=== PATIENT | male | born 1960 | race Caucasian/White ===

== ENCOUNTER 2024-09-15 12:19 | Inpatient (IN) | payer MEDICARE, SELFPAY ==
[2024-09-15] VITALS (23 sets, daily range): BP systolic 125–180; BP diastolic 64–93; PULSE 56–128; RESP 10–19; TEMP 36.3–36.9; O2SAT 84–100; BMI 33.9
[2024-09-15] MEDS: ETOMIDATE INJ 2 MG/ML VIAL 10 ML 40 MG IVP (12:28)
[2024-09-15] MEDS: ROCURONIUM INJ 10 MG/ML VIAL 10 ML 100 MG IVP (12:29)
--- NOTE | 2024-09-15 12:39 | EDNOTE_ITS ---
ED SOB =RME/HPI General Chief Complaint: Shortness of Breath/Dyspnea Stated Complaint: CODE BLUE Time Seen by Provider: 09/15/24 12:39 Arrival date/time: 09/15/24 12:19 RME / HPI RME / HPI Narrative: This section includes all my notes and documentations, including HPI, PE, MDM, Procedure Notes, and PLAN. Rohit Shabazz MD HPI: 64 year old male with history of seizures, AFib, hypertension, COPD, hyperlipidemia, and recently admitted here 09/07-09/11 for acute hypoxic hypercapnic respiratory failure with septic versus metabolic encephalopathy presents to the ED for respiratory arrest. Per medics, family on scene found the patient unresponsive this morning with an unknown duration. When fire department arrived, patient was slumped over on the couch, blue in color, and pulseless. CPR was initiated and patient quickly regained pulses. On arrival here, patient was being bagged via BVM saturating 91%. Prehospital BS 191. No further history obtainable by the patient. ROS: Unobtainable from patient due to current clinical condition. Physical Exam: GEN: Patient is unresponsive, actively being bagged. VITALS: O2 85% via BVM HEENT: Normocephalic, atraumatic. NECK: Supple, no JVD. CARDIOVASCULAR: Tachycardic. RESPIRATORY: Minimal air movement. ABDOMEN: Soft, flat. EXTREMITIES: No deformities. SKIN: Warm and dry. NEURO: GCS 3. I reviewed EMS notes. Patient was intubated right away, see procedure note. I reviewed all diagnostic test results. My interpretation of the EKG is sinus rhythm with nonspecific ST-T changes. My interpretation of the chest x-ray is no acute findings. My review of the CT reports is no acute findings. Blood tests remarkable for elevated D-dimer. UA showed WBC and bacteria. ABG showed pH 7.21, pCO2 102, pHCO3 41. At this point, diagnoses include acute respiratory failure with hypoxia and hypercapnia and UTI. Treatment here included Solu-Medrol, MgSO4 IV, neb treatments, Rocephin, etomidate, rocuronium, and propofol drip. I discussed the case with our ICU. About the presentation and exam and diagnostics and treatments here. And need of further care in the hospital. Will accept the patient. Related Data Home Medications ?Medication ?Instructions ?Recorded ?Confirmed celecoxib 200 mg capsule 200 mg PO BID 10/14/23 09/08/24 furosemide 40 mg tablet 40 mg PO QDAY 10/14/23 09/08/24 Previous Rx's ?Medication ?Instructions ?Recorded vitamin B complex-folic acid 0.4 1 tab PO QDAY 1 month #30 tabs 09/11/24 mg tablet (B Complex 1 (with folic acid)) Allergies Allergy/AdvReac Type Severity Reaction Status Date / Time No Known Allergies Allergy Verified 09/15/24 12:27 Review of Systems Review of Systems ROS Unobtainable: unobtainable due to mental status Past Medical History Past Medical History NEUROLOGIC: Positive Seizures CARDIAC: Positive Cardiac Disorders, Atrial Fibrillation, Hypercholesterolemia and Hypertension; Negative Congestive Heart Failure RESPIRATORY: Positive Chronic Obstructive Pulmonary Disease (COPD) and Asthma (COPD) GENITOURINARY: Negative Renal Disease ENDOCRINE: Negative Diabetes Mellitus Type 1 or Diabetes Mellitus Type 2 HEMATOLOGIC: Negative Sickle Cell Disease PSYCHO/SOCIAL: Positive Recreational Drug Use and Anxiety OTHER HISTORY: Negative Cancer Social History SMOKING STATUS: Unknown if ever smoked ED Exam Narrative Physical exam: As noted in HPI Course Course Course Narrative: chest xray ordered to help determine ET and OG tube placement. Quality Measures none Orders Category Date Time Status Bedside COVID-19 Antigen Test NOW Care 09/15/24 12:42 Active Bedside Influenza A&B Antigen Test NOW Care 09/15/24 12:42 Completed COVID-19 Screening Questionnaire NOW Care 09/15/24 14:[address] Screening NOW Care 09/15/24 12:41 Active Decision to Admit X1 Care 09/15/24 14:05 Active EKG (ED ONLY) *Do not use* NOW Care 09/15/24 12:43 Completed Yoder [Urinary Catheter] QS Care 09/15/24 12:39 Active Yoder to [place] Routine Care 09/15/24 12:40 Ordered Insert NG / OG tube NOW Care 09/15/24 12:40 Active Intubation NOW Care 09/15/24 12:54 Completed Saline [Insert IV] NOW Care 09/15/24 12:[address] abdomen pelvis w con Stat Exams 09/15/24 12:[address] angio chest Stat Exams 09/15/24 12:[address] head/brain wo con Stat Exams 09/15/24 12:41 Completed EKG (ED Only) Stat Exams 09/15/24 12:43 Draft KUB [XR abdomen 1V] Stat Exams 09/15/24 12:40 Completed XR chest 1V portable Stat Exams 09/15/24 12:40 Completed ABG [Arterial Blood Gas] Stat Lab 09/15/24 13:00 Completed Alcohol, Blood Medical Stat Lab 09/15/24 12:27 Completed Ammonia Stat Lab 09/15/24 13:20 Completed BNP [B-Type Natriuretic Peptide] Stat Lab 09/15/24 12:27 Completed Blood Culture (Lab) Stat Lab 09/15/24 13:03 Received CBC Stat Lab 09/15/24 12:27 Completed CMP [Comprehensive Metabolic Panel] Stat Lab 09/15/24 12:27 Completed CRP [C-Reactive Protein] Stat Lab 09/15/24 12:27 Completed D-Dimer Stat Lab 09/15/24 12:27 Completed Drug Screen,Urine Stat Lab 09/15/24 12:51 Completed ESR [Sed Rate (ESR)] Stat Lab 09/15/24 12:27 Completed Lactate (Lactic Acid) Stat Lab 09/15/24 12:27 Completed Magnesium Stat Lab 09/15/24 12:27 Completed PT [Prothrombin Time with INR] Stat Lab 09/15/24 12:27 Completed PTT [Partial Thromboplastin Time] Stat Lab 09/15/24 12:27 Completed Procalcitonin Stat Lab 09/15/24 12:27 Completed RSV [Respiratory Syncytial Virus Ag] Stat Lab 09/15/24 12:51 Ordered Sputum Culture and Gram Stain Stat Lab 09/15/24 13:08 Results TSH [Thyroid Stimulating Hormone] Stat Lab 09/15/24 12:27 Completed Troponin I Stat Lab 09/15/24 12:27 Completed UA [Urinalysis] Stat Lab 09/15/24 12:51 Completed Albuterol/Ipratr Rt Marita [Duoneb Rt Marita] Med 09/15/24 12:39 Discontinued 6 ml INH X1 ONE Cefepime Inj [Maxipime Inj] 1 gm Med 09/15/24 14:00 Discontinued Sodium Chloride 0.9% (P) [Ns 0.9% (P)] 50 ml IV X1 Etomidate Inj [Amidate Inj] Med 09/15/24 13:31 Discontinued 20 mg IVP X1 ONE Etomidate Inj [Amidate Inj] Med 09/15/24 12:24 Discontinued 40 mg IVP X1 ONE Magnesium Sulfate 2 GM Ivpb [Magnesium Sulfate Ivpb] Med 09/15/24 12:34 Disco ntinued 2 gm in 50 ml IV X1 MethylPREDNISolone.* [SoluMEDROL Inj] Med 09/15/24 12:34 Discontinued 125 mg IVP X1 ONE Propofol 1,000 mg Ivpb [Diprivan Ivpb] Med 09/15/24 12:45 Active 1,000 mg in 100 ml IV 5 mcg/kg/min Rocuronium Inj [Zemuron Inj] Med 09/15/24 12:22 Discontinued 100 mg .ROUTE .STK-MED ONE Rocuronium Inj [Zemuron Inj] Med 09/15/24 12:25 Discontinued 100 mg IVP X1 ONE Rocuronium Inj [Zemuron Inj] Med 09/15/24 13:31 Discontinued 50 mg IVP X1 ONE cefTRIAXone/D5w 1gm IV premix [Rocephin/D5w 1gm IV Med 09/15/24 14:21 Discontinued premix] 50 ml IV X1 Volume Ventilator Stat RT 09/15/24 Active Vital Signs Vital signs: Vital Signs Temperature 97.4 F 09/15/24 12:23 Pulse Rate 128 H 09/15/24 12:23 Respiratory Rate 10 L 09/15/24 12:23 Blood Pressure 140/70 H 09/15/24 12:23 Pulse Oximetry (%) 84 L 09/15/24 12:23 Oxygen Delivery Method Ambu-Bag 09/15/24 12:23 Procedures -ED Intubation Time out performed: Yes sedative: Etomidate Mg Given: 40 paralytic: Rocuronium Mg Given: 100 Laryngoscope: fiber optic video scope Assist Device Used: fiber optic device ET Tube Size: 8 ET Tube Uncuffed: No Tube Secured Depth (cm): 25 Tube Secured Location: lips Tube Placement Confirmation: visualized tube passing through cords, equal breath sounds bilaterally, no breath sounds over epigastrium and confirmation by capnometry Patient Tolerated Procedure: well and no complications Intubation Complications: none Additional Comments: Patient intubated by Dr. Naranjo under my supervision Shortness of Breath / Dyspnea MDM Narrative MDM Narrative:: ICherise am scribing for and in the presence of Dr. Shabazz. Patient data External records reviewed:: [facility] previous records (I reviewed admission from 09/07/2024 through 09/11/2024) and EMS form Clinical information provided by:: EMS Social determinants that could affect healthcare access:: substance use Patient has the following chronic illnesses:: Seizures, AFib, hypertension, COPD, hyperlipidemia How is presenting disease/condition affected by chronic disease/condition?: exacerbated by Evaluation data The following diagnostics were reviewed and interpreted by me:: lab results, radiology exam(s) and EKG tracing(s) (My interpretation of the EKG is: Atrial fibrillation with RVR (170 bpm) with nonspecific ST-T changes. Rohit Shabazz MD) Lab and/or radiology exams considered but not ordered:: None Interpretation Summary: Ordering Physician: Rohit Shabazz MD Date of Service: 09/15/24 Procedure(s): XR abdomen 1V Accession Number(s): [id number] cc: Rohit Shabazz MD; Thanh Kevin MD~ Examination: Abdomen AP single view Technique: AP portable supine abdomen, single view Exam date and time: September 15, 2024 1247 hours INDICATIONS: Post orogastric tube placement Findings: Orogastric tube sidehole is near the GE junction IMPRESSION: Advance the orogastric tube 5 cm Dictated By: Thanh Kevin MD Signed By: <Electronically signed by Thanh Kevin MD in OV> 09/15/24 1300 Ordering Physician: Rohit Shabazz MD Date of Service: 09/15/24 Procedure(s): XR chest 1V portable Accession Number(s): [id number] cc: Rohit Shabazz MD; Thanh Kevin MD~ Examination: AP chest single view TECHNIQUE: AP portable supine chest single view Exam date and time: September 15, 2024 1251 hours Comparison September 09, 2024 INDICATIONS: Hypoxic respiratory failure postintubation FINDINGS: Tracheal tube tip 3 cm above tamera Mild enlargement cardiac contour Significant vascular congestion Orogastric tube sidehole is near the GE junction IMPRESSION: Advance the orogastric tube 5 cm Dictated By: Thanh Kevin MD Signed By: <Electronically signed by Thanh Kevin MD in OV> 09/15/24 1301 Ordering Physician: Marleny Crouch MD Date of Service: 09/15/24 Procedure(s): XR chest 1V portable Accession Number(s): [id number] cc: Thanh Kevin MD; NO PRIMARY/FAMILY,PHYSICIAN; Marleny Crouch MD~ Examination: AP chest single view TECHNIQUE: AP portable supine chest single view Exam date and time: September 15, 2024 1445 hours Comparison September 15, 2024 12:51 PM INDICATIONS: COPD exacerbation shortness of breath today, reposition orogastric tube FINDINGS: Enlarged cardiac contour with prominent vascular congestion Endotracheal tube tip 3.5 cm above tamera IMPRESSION: Recommend abdomen film follow-up to best assess position of orogastric tube Dictated By: Thanh Kevin MD Signed By: <Electronically signed by Thanh Kevin MD in OV> 09/15/24 1506 Medications / Prescriptions Medications or Prescriptions considered but not ordered:: None Medication administrations:: Medication Administration History Acetaminophen (Acetaminophen 325 Mg Tablet) 650 mg PO Q4HR PRN PRN Reason: Pain Scale 1-3 or fever >99.0 Stop: 10/15/24 14:30 Albuterol/Ipratropium (Albuterol/Ipratropium (Duoneb) Rt Marita 3 Ml Nebu) 3 ml INH Q4HRRT FREDIS Stop: 10/15/24 14:59 Last Admin: 09/15/24 15:14 Dose: 3 ml Documented By: GER Enoxaparin Sodium (Enoxaparin Sod Inj 40 Mg/0.4 Ml Syringe) 40 mg SC QDAY FREDIS Stop: 09/30/24 08:59 Propofol (Diprivan Ivpb) 1,000 mg in 100 mls @ 3.402 mls/hr IV .Q24H PRN; Protocol PRN Reason: PER PROTOCOL Stop: 10/15/24 12:44 Last Titration: 09/15/24 16:47 Dose: 45 mcg/kg/min, 30.617 mls/hr Documented By: Titration: 09/15/24 15:47 Dose: 45 mcg/kg/min, 30.617 mls/hr Documented By: Titration: 09/15/24 15:42 Dose: 45 mcg/kg/min, 30.617 mls/hr Documented By: Titration: 09/15/24 15:37 Dose: 40 mcg/kg/min, 27.216 mls/hr Documented By: Titration: 09/15/24 15:31 Dose: 35 mcg/kg/min, 23.814 mls/hr Documented By: Titration: 09/15/24 15:11 Dose: 30 mcg/kg/min, 20.412 mls/hr Documented By: Titration: 09/15/24 15:06 Dose: 30 mcg/kg/min, 20.412 mls/hr Documented By: Titration: 09/15/24 14:45 Dose: 25 mcg/kg/min, 17.01 mls/hr Documented By: Titration: 09/15/24 14:39 Dose: 20 mcg/kg/min, 13.608 mls/hr Documented By: Titration: 09/15/24 14:34 Dose: 15 mcg/kg/min, 10.206 mls/hr Documented By: Titration: 09/15/24 14:22 Dose: 10 mcg/kg/min, 6.804 mls/hr Documented By: Titration: 09/15/24 13:55 Dose: 5 mcg/kg/min, 3.402 mls/hr Documented By: Admin: 09/15/24 13:39 Dose: 5 mcg/kg/min, 3.402 mls/hr Documented By: TM Co-signed By: NERI Azithromycin 250 mg/ Sodium (Chloride) 250 mls @ 250 mls/hr IV QDAY FREDIS Stop: 09/23/24 08:59 Methylprednisolone Sodium Succinate (Methylprednisolone Sod Succ 40 Mg Vial) 40 mg IVP QDAY FREDIS Stop: 09/23/24 08:59 Ondansetron HCl (Ondansetron Inj 2 Mg/Ml Inj 2 Ml) 4 mg IV Q8HR PRN PRN Reason: NAUSEA OR VOMITING Stop: 10/15/24 14:30 Pantoprazole Sodium (Pantoprazole 40 Mg Tablet) 40 mg PO QDAY FREDIS Stop: 10/16/24 08:59 Discontinued Medications Acetaminophen (Acetaminophen 325 Mg Tablet) 650 mg PO Q4HR PRN PRN Reason: Pain Scale 1-3 or fever >100.3 Stop: 10/15/24 14:30 Albuterol/Ipratropium (Albuterol/Ipratropium (Duoneb) Rt Marita 3 Ml Nebu) 6 ml INH X1 ONE Stop: 09/15/24 12:40 Last Admin: 09/15/24 12:57 Dose: 6 ml Documented By: Etomidate (Etomidate Inj 2 Mg/Ml Vial 10 Ml) 40 mg IVP X1 ONE Stop: 09/15/24 12:25 Last Admin: 09/15/24 12:28 Dose: 40 mg Documented By: NERI Etomidate (Etomidate Inj 2 Mg/Ml Vial 10 Ml) 20 mg IVP X1 ONE Stop: 09/15/24 13:32 Last Admin: 09/15/24 13:36 Dose: 20 mg Documented By: BARBARA Magnesium Sulfate (Magnesium Sulfate Ivpb) 2 gm in 50 mls @ 25 mls/hr IV X1 ONE Stop: 09/15/24 14:33 Last Admin: 09/15/24 13:48 Dose: 25 mls/hr Documented By: BARBARA Cefepime HCl 1 gm/ Sodium (Chloride) 50 mls @ 100 mls/hr IV X1 ONE Stop: 09/15/24 14:29 Last Infusion: 09/15/24 14:30 Dose: 100 mls/hr Documented By: Admin: 09/15/24 14:21 Dose: 100 mls/hr Documented By: FOREST Ceftriaxone Sodium/Dextrose (Rocephin/D5w 1gm Iv Premix) 50 mls @ 100 mls/hr IV X1 ONE Stop: 09/15/24 14:50 Last Admin: 09/15/24 16:14 Dose: 100 mls/hr Documented By: BARBARA Azithromycin 500 mg/ Sodium (Chloride) 250 mls @ 250 mls/hr IV X1 ONE Stop: 09/15/24 15:36 Last Admin: 09/15/24 16:39 Dose: 250 mls/hr Documented By: BARBARA Methylprednisolone Sodium Succinate (Methylprednisolone Sod Succ 62.5 Mg/Ml 2ml Vial) 125 mg IVP X1 ONE Stop: 09/15/24 12:35 Last Admin: 09/15/24 12:40 Dose: 125 mg Documented By: NERI Rocuronium [place] (Rocuronium Inj 10 Mg/Ml Vial 10 Ml) 100 mg IVP X1 ONE Stop: 09/15/24 12:26 Last Admin: 09/15/24 12:29 Dose: 100 mg Documented By: NERI Co-signed By: JASPREET Rocuronium [place] (Rocuronium Inj 10 Mg/Ml Vial 10 Ml) Confirm Administered Dose 100 mg .ROUTE .STK-MED ONE Stop: 09/15/24 12:23 Last Admin: 09/15/24 12:30 Dose: Not Given Documented By: NERI Non-Admin Reason: Duplicate Medication on eMAR Rocuronium [place] (Rocuronium Inj 10 Mg/Ml Vial 10 Ml) 50 mg IVP X1 ONE Stop: 09/15/24 13:32 Last Admin: 09/15/24 13:38 Dose: 50 mg Documented By: BARBARA Co-signed By: NERI See above Consultations Consultation(s) initiated? (list below): Yes Consultation #1 (Physician, Specialty, Details): I spoke with fig bar machine operator Dr. Cano. Discussed patients PMHx, HPI, ED course, exam findings, labs, and radiology results. He accepts the patient for admission. Time: 14:02 Diagnosis Shortness of Breath Differential Diagnosis: acute exacerbation of chronic obstru ctive airways disease, congestive heart failure, community acquired pneumonia, asthma with exacerbation and pulmonary embolism Most likely diagnosis given after review of the tests above:: Acute respiratory failure with hypoxia and hypercapnia due to COPD and UTI. Admission Indicated Admission indicated?: indicated Admission Request Was there a request for admission?: Yes Admission Attestation Admission request attestation: Discussed case with [] from Hospitalist service regarding admission. Discussed patients ED course, exam findings, labs, and radiology results. The Hospitalist [agrees,declines] to accept the patient for admission. Disposition Plan Disposition Plan: Admit Critical Care Time Critical Care Time Critical Care Time: Yes Total Critical Care Time (min.): 35 Attestation: The high probability of sudden, clinically significant deterioration in the patient's condition required the highest level of my preparedness to intervene urgently. The services I provided to this patient were to treat and/or prevent clinically significant deterioration. Services included the following: chart data review, reviewing nursing notes and/or old charts, documentation time, disaster recovery consultant collaboration regarding findings and treatment options, medication orders and management, direct patient care, vital sign assessments and ordering, interpreting and reviewing diagnostic studies and lab tests. Aggregate critical care time includes only time during which I was engaged in work directly related to the patient's care, as described above, whether at bedside or elsewhere in the Emergency Department. It did not include time spent performing other reported procedures or the services of residents, students, nurses or physician assistants. Discharge Plan Plan Patient Disposition: Admit Acute Care w/in Hospital Problem List Clinical Impression: Acute respiratory failure with hypoxia and hypercapnia, Acute UTI
[2024-09-15] MEDS: MethylPREDNISolone SOD SUCC 62.5 MG/ML 2ML VIAL 125 MG IVP (12:40)
--- NOTE | 2024-09-15 12:41 | XR_ITS ---
Examination: CT abdomen with intravenous contrast CT pelvis with intravenous contrast 2-D coronal reconstructions 2-D sagittal reconstructions Date and time of exam:September 15, 2024 1551 hours INDICATIONS: Syncopal episode today with hypoxia and tachycardia, abdominal pain. CTDI: vol (mGy) 22.6 DLP: (mGycm) 1503 Technique: Multiple axial sections of the abdomen and pelvis have been obtained. 64 slice high-resolution scanner used. 3 mm axial sections have been obtained, post intravenous injection 100 cc Isovue-370 2-D sagittal, coronal reconstructions obtained. Low dose protocols were performed. One or more of the following dose reduction techniques were used; automated exposure control, adjustment of the mA and/or KV according to patient size, use of iterative reconstruction technique. Findings: Prominent pneumonia left base with minimal pleural fluid No focal liver lesions No gallstones Spleen not enlarged No pancreatic mass No adrenal mass No renal or ureteral calculi, no hydronephrosis Aorta normal size Normal appendix Moderate air and stool in the colon, no obstruction Urinary Yoder catheter with urinary bladder wall thickening up to 5 mm Transverse prostate dimension 3.9 cm Prominent osteopenia Moderate left hip osteoarthritis with surface irregularities left femoral head consistent with avascular necrosis IMPRESSION: Prominent pneumonia left base No renal or ureteral calculi, no hydronephrosis Normal appendix Mild urinary bladder wall thickening, consider cystitis Moderate left hip osteoarthritis Avascular necrosis left femoral head
--- NOTE | 2024-09-15 12:41 | XR_ITS ---
Examination: CT brain head without contrast. 2-D sagittal coronal reconstructions Date and time of exam:September 15, 2024 1545 hours INDICATIONS: Onset altered mental status today, altered mental status September 07, 2024 CTDI: vol (mGy):3.9 DLP: (mGycm):1157 Technique: Multiple CT axial sections of the brain have been obtained, 5 mm slice thickness. Contrast has not been administered. 2-D sagittal, coronal reconstructions have been obtained Low dose protocols were performed. One or more of the following dose reduction techniques were used; automated exposure control, adjustment of the mA and/or KV according to patient size, use of iterative reconstruction technique. Findings: No significant ventricular enlargement. Intra-axial or extra-axial hemorrhage density is not seen. No mass effect or midline shift Basal cisterns are not remarkable. Fourth ventricle is midline. Cranial vault intact. Significant frontal ethmoid maxillary antral and sphenoid sinus disease Impression: Negative for acute hemorrhage, mass effect or midline shift Advise clinical correlation follow-up accordingly
--- NOTE | 2024-09-15 12:41 | XR_ITS ---
Examination: CTA chest with intravenous contrast 2-D reconstructions 3-D reconstructions, vascular Date and time of exam: September 15, 2024 1551 hours INDICATIONS: Syncopal episode today with tachycardia hypoxia SOB and chest pain, clinical diagnosis pulmonary emboli CTDI: vol (mGy) 18.8 DLP: (mGycm) 681 Technique: Multiple axial sections of the thorax have been obtained. 3 mm slice thickness, from below the hemidiaphragms to above the apices of the lungs. Mediastinal and lung density settings have been obtained. 2-D sagittal and coronal reconstructions. 3-D angiographic renderings, 3-D volume renderings, 3D post processing, vascular maximum intensity projections obtained. Contrast administered is 100 cc Isovue-370. Low dose protocols were performed. One or more of the following dose reduction techniques were used; automated exposure control, adjustment of the mA and/or KV according to patient size, use of iterative reconstruction technique. Findings: Tracheal tube tip 16mm above tamera No thoracic aortic aneurysm dilatation or dissection No pulmonary artery emboli Prominent pneumonia left base Orogastric tube in stomach No focal liver or splenic lesion No pancreatic mass IMPRESSION: Negative for pulmonary artery emboli Prominent pneumonia left base, consider aspiration pneumonia
--- NOTE | 2024-09-15 12:43 | EKG_ITS ---
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
--- NOTE | 2024-09-15 12:47 | PC.NURSE ---
PT ARRIVES VIA EMS FROM HOME, FIRE ARRIVED ON SCENE FIRST, FOUND PT SLUMPED OVER IN WC NOT BREATHING AND NO PULSE, FIRE INITIATED CPR. WHEN EMS ARRIVED ON SCENE PT HAD PULSE AND WAS A.FIB ON THEIR MONITOR. PT WAS BAGGED O2 GOT UP TO 93%. EMS INITIALLY CALLED FOR SEIZURES. PT WAS INVCONT. UNKNOWN DOWN TIME.
[2024-09-15 12:51] LABS: Basophils # (Auto) 0.1 Thou/mm3 (0.0-0.2); Basophils % (Auto) 1 % (0-2.5); Eosinophils # (Auto) 0.1 Thou/mm3 (0.0-0.5); Eosinophils % (Auto) 1 % (0-10); Hematocrit 45.7 % (41.0-53.0); Hemoglobin 13.4 g/dL (13.5-16.0); Immature Granulocytes % (Auto) 9 % (0-0); Immature Granulocytes Auto 0.97 Thou/mm3 (0.00-0.00); Lymphocytes # (Auto) 2.5 Thou/mm3 (1.0-4.8); Lymphocytes % (Auto) 23 % (10-50); Mean Corpuscular HGB Conc 29.3 g/dl (31.0-37.0); Mean Corpuscular Hemoglobin 31.3 pg (25.0-35.0); Mean Corpuscular Volume 107 fL (80-100); Monocytes % (Auto) 9 % (0-12); Neutrophils # (Auto) 6.5 Thou/mm3 (1.8-7.7); Neutrophils % (Auto) 58 % (37-80); Nucleated Red Blood Cell % 0 /100 WBC (0); Platelet Count 176 Thou/mm3 (140-440); RDW Standard Deviation 61.2 fL (35.1-43.9); Red Blood Count 4.28 Miln/mm3 (4.50-5.90); White Blood Count 11.1 Thou/mm3 (3.8-10.6)
[2024-09-15 12:52] LABS: Lactate (Lactic Acid) 9.3 mMol/L (0.4-2.0)
[2024-09-15] MEDS: ALBUTEROL/IPRATROPIUM (Duoneb) RT SOL 3 ML NEBU 6 ML INH (12:57)
[2024-09-15 12:58] LABS: Partial Thromboplastin Time 27.7 Seconds (22.0-36.0); Prothrombin Time 11.4 Seconds (9.0-12.2)
[2024-09-15 12:59] LABS: Collection Type, Urine Clean Catch
[2024-09-15 13:06] LABS: Base Excess 9 (-3-3); HCO3 41 mEq/L (20-26); Inspired Oxygen, FIO2 100 %; O2 Saturation 96 % (91-98); PCO2 102 mmHg (32.0-48.0); PO2 401 mmHg (83-108); pH, Arterial 7.21 (7.35-7.45)
[2024-09-15 13:07] LABS: Allen Test Not Performed; Puncture Site Right Radial
[2024-09-15 13:08] LABS: Amphetamine/Methamp Scrn,U Negative (Negative); Barbiturate Screen,Urine Negative (Negative); Benzodiazepines Screen,Urine Negative (Negative); Benzoylecgonine Screen, Ur Negative (Negative); Fentanyl Screen,Urine Negative (Negative); Opiate Screen,Urine Negative (Negative); THC Screen,Urine Negative (Negative)
--- NOTE | 2024-09-15 13:08 | PC.NURSE ---
SPOKE W/SON AT THIS TIME TO GET INFORMATION FOR CT SCREENING AND PROVIDE UPDATE.
[2024-09-15 13:11] LABS: Alanine Aminotransferase 27 U/L (10-49); Albumin, Serum 4.5 gm/dL (3.4-4.8); Albumin/Globulin Ratio 1.7 (1.2-2.2); Alcohol, Blood Medical < 10.0 mg/dL (0-10.0); Alkaline Phosphatase 80 U/L (46-116); Anion Gap 8 (7-16); Aspartate Amino Transferase 18 U/L (0-34); BUN/Creatinine Ratio 22 Ratio (12-20); Bilirubin,Total 0.3 mg/dL (0.3-1.2); Blood Urea Nitrogen 20 mg/dL (9-23); C-Reactive Protein 1.6 mg/dL (0.0-0.9); Calcium 9.3 mg/dL (8.3-10.6); Calcium (Corrected) 9.3 mg/dL (8.5-10.1); Carbon Dioxide 35.2 mMol/L (20.0-31.0); Chloride 93 mMol/L (98-107); Creatinine (Component) 0.9 mg/dL (0.6-1.3); Estimated Creatinine Clearance 107.8 mL/min (>60); Globulin 2.6 gm/dL (2.3-3.5); Glucose 190 mg/dL (74-106); Magnesium 2.1 mg/dL (1.6-2.6); Osmolality,Calculated 279 (275-295); Potassium 4.6 mMol/L (3.4-5.1); Procalcitonin 0.21 ng/ml (0.0-0.49); Sodium 136 mMol/L (136-145); Thyroid Stimulating Hormone 1.91 uIU/mL (0.55-4.78); Total Protein 7.1 gm/dL (5.7-8.2); Troponin I < 0.020 ng/mL (0.0-0.045); eGFR > 60 See Note
[2024-09-15 13:18] LABS: D-Dimer 2830 ng/mL (<600)
[2024-09-15 13:22] LABS: B-Type Natriuretic Peptide 77 pg/mL (0-100)
[2024-09-15 13:27] LABS: Bacteria,Urine 2+; Bilirubin,Urine Negative (Negative); Blood,Urine 1+ (Negative); Color,Urine Yellow (Lt Yel-Yel); Glucose, Urine Trace (Negative); Granular Casts,Urine 2 /hpf (0-1); Ketones,Urine Negative (Negative); Leukocyte Esterase,Urine Negative (Negative); Nitrite,Urine Negative (Negative); Protein,Urine 3+ (Neg - Trace); RBC,Urine 24 /hpf (0-3); Specific Gravity,Urine 1.024 (1.001-1.035); Squamous Epithelial Cell,Urine 3 /hpf (0-5); Urobilinogen,Urine Negative mg/dL (0.0-1.0); WBC,Urine 56 /hpf (0-5)
[2024-09-15] MEDS: ETOMIDATE INJ 2 MG/ML VIAL 10 ML 20 MG IVP (13:36)
[2024-09-15] MEDS: ROCURONIUM INJ 10 MG/ML VIAL 10 ML 50 MG IVP (13:38)
[2024-09-15] MEDS: PROPOFOL 1,000 MG IVPB 1,000 MG/100 ML VIAL 3.402 MG IV (13:39)
[2024-09-15 13:41] LABS: Ammonia 24 uMol/L (11-32)
[2024-09-15] MEDS: Magnesium Sulfate 2 GM Ivpb 2 GM/50 ML BAG IV (13:48)
[2024-09-15 13:50] LABS: Clarity,Urine Cloudy (Clear/Hazy)
[2024-09-15] MEDS: CEFEPIME INJ 1 GM in SODIUM CHLORIDE 0.9% (P) 50 ML IV (14:21)
--- NOTE | 2024-09-15 14:31 | XR_ITS ---
Examination: AP chest single view TECHNIQUE: AP portable supine chest single view Exam date and time: September 15, 2024 1445 hours Comparison September 15, 2024 12:51 PM INDICATIONS: COPD exacerbation shortness of breath today, reposition orogastric tube FINDINGS: Enlarged cardiac contour with prominent vascular congestion Endotracheal tube tip 3.5 cm above tamera IMPRESSION: Recommend abdomen film follow-up to best assess position of orogastric tube
[2024-09-15 14:42] LABS: Sed Rate (ESR) 74 mm/hr (0-20)
[2024-09-15] MEDS: ALBUTEROL/IPRATROPIUM (Duoneb) RT SOL 3 ML NEBU INH ×3 (15:14→22:40)
[2024-09-15 15:45] LABS: Reflex Lactate? Y
[2024-09-15] MEDS: cefTRIAXone/D5w 1gm IV premix 50 ML IV (16:14)
[2024-09-15 16:23] LABS: Lactic Acid, 3 HR 1.2 mMol/L (0.4-2.0)
--- NOTE | 2024-09-15 16:26 | ESHP_ITS ---
<Statement entered by Franci Cruz MD - 09/18/24 06:58> Patient was seen and examined by me personally. I have directly supervised and reviewed the above documentation by the team resident and agree with its findings with any exceptions or additional findings as below. Plan of care was discussed with the attending, Dr. Cano. Franci Cruz, PGY-2 Documentation for date of: 09/15/24 HPI History of Present Illness Chief complaint: status post suspected respiratory arrest History of present illness: The patient is a 64-year-old male with a previous medical history of COPD, hypertension, hyperlipidemia, substance abuse, A-fib, seizures who was brought in via EMS after he was found slumped in his chair with no pulse and breathing, firefighters initiated CPR, ROSC was already obtained upon EMS arrival. The down time is unknown. He recently had an admission at [facility] due to altered mentation and acute respiratory failure requiring intubation. History is gathered through chart review, no family or friends at the bedside at the moment of examination. ED course: On arrival to the [facility] his blood pressure was 203/93, saturation 93%, on Ambu bag. In the ED he was started on mechanical ventilation, VC mode, RR 18, VT 450, PEEP 5, FiO2 100%. Peak-plato delta was 9. He received DuoNeb inhalations, magnesium sulfate, cefepime and, ceftriaxone and methylprednisone. Labs showed leukocytosis of 11.1, low chloride, low bicarb, normal anion gap lactic acid 9.3 C-reactive protein 1.6 ABGs showed pH 7.21, pCO2 122, pO2 401, HCO3 41, O2 saturation 96. Head CT was negative for stroke or fractures. EKG showed sinus rhythm. CTA negative for PE, prominent pneumonia left base, possible aspiration. U tox was negative. FiO2 was downtitrated to the 60%, SaO2 94%. Patient is sedated on propofol. Patient is being admitted to the ICU for acute hypoxic respiratory failure and post possible respiratory arrest management. Review of Systems Review of Systems ROS Unobtainable: unobtainable due to medical condition and due to endotracheal tube Exam Vital Signs Temp Pulse Resp BP Pulse Ox O2 Del Method O2 Flow Rate 98.5 F 72 18 133/66 H 92 L Nasal Cannula 2 09/15/24 14:11 09/15/24 15:14 09/15/24 15:14 09/15/24 14:11 09/15/24 15:14 09/15/24 14:11 09/15/24 14:11 FiO2 40 09/15/24 15:14 Narrative Exam Gen: Well-developed and well-nourished, disheveled, ill-appearing.Intubated. Sedated. HEENT: NCAT, PERRLA, EOMI, MMM, anicteric conjunctivae. CVS: normal S1 and S2. RRR. No M/R/G. Resp: Distant breathing sounds, diffuse rhonchi. Abd: soft, non-tender, non-distended. BS+ in all 4 quadrants. MSK: Good ROM in BUE & BLE. Face has red macular squamous excoriations/eruptions appearing seborrheic dermatitis. Hyperpigmentation and woody appearance of lower extremities. Neuro: CN II-XII grossly intact. Strength 5/5 in BUE & BLE. Awake and alert. Psych: appropriate mood and affect. Results: Labs 09/21/24 04:40 09/21/24 04:40 Labs: Short CBC 09/15/24 Range/Units 12:27 WBC 11.1 H D (3.8-10.6) Thou/mm3 Hgb 13.4 L D (13.5-16.0) g/dL Hct 45.7 (41.0-53.0) % Plt Count 176 D (140-440) Thou/mm3 BMP 09/15/24 12:27 Sodium 136 Potassium 4.6 Chloride 93 L Carbon Dioxide 35.2 H BUN 20 Creatinine 0.9 Glucose 190 H Calcium 9.3 Cardiac Enzymes 09/15/24 Range/Units 12:27 Troponin I < 0.020 (0.0-0.045) ng/mL Liver Function 09/15/24 Range/Units 12:27 Total Bilirubin 0.3 (0.3-1.2) mg/dL AST 18 (0-34) U/L ALT 27 (10-49) U/L Alkaline Phosphatase 80 (46-116) U/L Albumin 4.5 (3.4-4.8) gm/dL Urine 09/15/24 Range/Units 12:51 Urine Color Yellow (Lt Yel-Yel) Urine Clarity Cloudy A (Clear/Hazy) Urine pH 6.0 (5.0-7.0) Ur Specific [place] 1.024 (1.001-1.035) Urine Protein 3+ A (Neg - Trace) Urine Glucose (UA) Trace (Negative) ABG Interpretation ABG results: 09/15/24 13:00 ABG pH 7.21 L ABG pCO2 102 H* ABG pO2 401 H ABG HCO3 41 H ABG O2 Saturation 96 ABG Base Excess 9 H Quality Measures Quality Measures none Medications Home Medications and Allergies Allergies Allergy/AdvReac Type Severity Reaction Status Date / Time No Known Allergies Allergy Verified 09/15/24 12:27 Visit Medications Acetaminophen (Acetaminophen 325 Mg Tablet) 650 mg PO Q4HR PRN PRN Reason: Pain Scale 1-3 or fever >99.0 Stop: 10/15/24 14:30 Albuterol/Ipratropium (Albuterol/Ipratropium (Duoneb) Rt Marita 3 Ml Nebu) 3 ml INH Q4HRRT FREDIS Stop: 10/15/24 14:59 Last Admin: 09/15/24 15:14 Dose: 3 ml Enoxaparin Sodium (Enoxaparin Sod Inj 40 Mg/0.4 Ml Syringe) 40 mg SC QDAY FREDIS Stop: 09/30/24 08:59 Propofol (Diprivan Ivpb) 1,000 mg in 100 mls @ 3.402 mls/hr IV .Q24H PRN; Protocol PRN Reason: PER PROTOCOL Stop: 10/15/24 12:44 Last Titration: 09/15/24 15:37 Dose: 40 mcg/kg/min, 27.216 mls/hr Azithromycin 250 mg/ Sodium (Chloride) 250 mls @ 250 mls/hr IV QDAY FREDIS Stop: 09/23/24 08:59 Methylprednisolone Sodium Succinate (Methylprednisolone Sod Succ 40 Mg Vial) 40 mg IVP QDAY FREDIS Stop: 09/23/24 08:59 Ondansetron HCl (Ondansetron Inj 2 Mg/Ml Inj 2 Ml) 4 mg IV Q8HR PRN PRN Reason: NAUSEA OR VOMITING Stop: 10/15/24 14:30 Pantoprazole Sodium (Pantoprazole 40 Mg Tablet) 40 mg PO QDAY FREDIS Stop: 10/16/24 08:59 Discontinued Medications Acetaminophen (Acetaminophen 325 Mg Tablet) 650 mg PO Q4HR PRN PRN Reason: Pain Scale 1-3 or fever >100.3 Stop: 10/15/24 14:30 Albuterol/Ipratropium (Albuterol/Ipratropium (Duoneb) Rt Marita 3 Ml Nebu) 6 ml INH X1 ONE Stop: 09/15/24 12:40 Last Admin: 09/15/24 12:57 Dose: 6 ml Etomidate (Etomidate Inj 2 Mg/Ml Vial 10 Ml) 40 mg IVP X1 ONE Stop: 09/15/24 12:25 Last Admin: 09/15/24 12:28 Dose: 40 mg Etomidate (Etomidate Inj 2 Mg/Ml Vial 10 Ml) 20 mg IVP X1 ONE Stop: 09/15/24 13:32 Last Admin: 09/15/24 13:36 Dose: 20 mg Magnesium Sulfate (Magnesium Sulfate Ivpb) 2 gm in 50 mls @ 25 mls/hr IV X1 ONE Stop: 09/15/24 14:33 Last Admin: 09/15/24 13:48 Dose: 25 mls/hr Cefepime HCl 1 gm/ Sodium (Chloride) 50 mls @ 100 mls/hr IV X1 ONE Stop: 09/15/24 14:29 Last Infusion: 09/15/24 14:30 Dose: 100 mls/hr Ceftriaxone Sodium/Dextrose (Rocephin/D5w 1gm Iv Premix) 50 mls @ 100 mls/hr IV X1 ONE Stop: 09/15/24 14:50 Last Admin: 09/15/24 16:14 Dose: 100 mls/hr Azithromycin 500 mg/ Sodium (Chloride) 250 mls @ 250 mls/hr IV X1 ONE Stop: 09/15/24 15:36 Methylprednisolone Sodium Succinate (Methylprednisolone Sod Succ 62.5 Mg/Ml 2ml Vial) 125 mg IVP X1 ONE Stop: 09/15/24 12:35 Last Admin: 09/15/24 12:40 Dose: 125 mg Rocuronium [place] (Rocuronium Inj 10 Mg/Ml Vial 10 Ml) 100 mg IVP X1 ONE Stop: 09/15/24 12:26 Last Admin: 09/15/24 12:29 Dose: 100 mg Rocuronium [place] (Rocuronium Inj 10 Mg/Ml Vial 10 Ml) 50 mg IVP X1 ONE Stop: 09/15/24 13:32 Last Admin: 09/15/24 13:38 Dose: 50 mg Assessment & Plan Plan The patient is a 64-year-old male with a previous medical history of COPD, hypertension, hyperlipidemia, substance abuse (A-fib, seizures who was brought in via EMS after he was found slumped in his chair with no pulse and breathing, firefighters initiated CPR, ROSC upon EMS arrival. Patient was being admitted to the ICU for acute hypoxic respiratory failure and post possible respiratory arrest management. NEURO #No active problems Patient is sedated, intubated. CT head is negative. Plan: - continue with sedation - propofol - phentanyl - maintain normothermia in the setting after respiratory arrest CARDIO #History of hypertension Plan: - will continue to monitor BP PULM #Acute hypoxic hypercapnic respiratory failure #COPD exacerbation #Left lung pneumonia Patient has history of COPD and was found unresponsive at home with no breathing. ABGs showed respiratory acidosis. Chest Xray showed left lung pneumonia. FiO2 downtitrated to 40%. Plan: - Albuterol/Ipratropium inhalations - Methylprednisolone 40 mg qday - Zosyn 09/15-current - Azithromycin 250 mg qday 09/15-current - Titrate down FiO2 if possible GI #No active problems Plan: - pantoprazole 40 mg qday NEPHRO #No active problems URO #No active problems HEME #Mild macrocytic anemia 09/08 B12 level 204, decreased. Plan: - consider supplementing B12 ENDO #No active problems ID #Left base pneumonia #COPD exacerbation Plan: - Zosyn 09/15-current - Azithromycin 500 mg once, then 250 mg qday - blood and sputum cultures pending MSK #No active problems SKIN #Chronic venous stasis dermatitis DVT prophylaxis:lovenox 40 mg sc GI prophylaxis: pantprazole 40 mg IV Diet: Tube feeds Yoder: Present Lines: peripheral Antibiotics: Azithromycin CODE STATUS: FULLCODE Reason for ICU care: AHRF due to COPD exacerbation and status post repiratory arrest Plan of care discussed with attending Dr. Cano, PGY-[address] Cruz and PGY-[address] Rust. Marleny Crouch MD, PGY 1. Attending Provider Attestation/Addendum Patient seen and examined with the above resident, Marleny Crouch MD. I agree with the findings, assessment, and plan of care as documented except for any differences below. Patient admitted to the ICU post respiratory arrest at home with loss of pulse, ROSC achieved prior to arrival in ED with subsequent intubation. Patient with stable pressures on mechanical ventilation and on lung protective settings. Plan to maintain on sedation now with adequate steroids/ BD therapy to optimize history of COPD with probable exacerbation as etiology, pCO2 >100 on arrival. Initial chest film does suggests pneumonia versus mucus plugging. Will start on empiric antibiotics as well. Will plan for early SAT in AM and see if mentation allows for extubation. Total critical care time: I personally spent 40 minutes for review of physiologic parameters, directing plan of care, and coordination of care with other specialties. This is exclusive of time spent teaching housestaff or performing any separate billable procedures. Patient requires continued critical care services for acute on chronic hypercapnic respiratory failure and acute encephalopathy, metabolic with continued risk of increased morbidity and high mortality.
[2024-09-15] MEDS: AZITHROMYCIN INJ 500 MG in SODIUM CHLORIDE 0.9% 250 ML 250 ML 250 MG IV (16:39)
--- NOTE | 2024-09-15 17:10 | PC.NURSE ---
1705 TOOK PT UP TO FLOOR WITH FELLOW [employer]CH[employer]IC AND RT W/NO INCIDENTS. PT SEDATED APPROPRIATELY DURING TRANSPORT. pT REMAINED CONNECTED TO TELE, VSS EN ROUTE. ICU TEAM AT BEDSIDE AND TOOK OVER CARE.
[2024-09-15] MEDS: PROPOFOL 1,000 MG IVPB 1,000 MG/100 ML VIAL 34.019 MG IV ×2 (17:52→20:09)
[2024-09-15 18:17] LABS: Base Excess 19 (-3-3); HCO3 47 mEq/L (20-26); O2 Saturation 86 % (91-98); PCO2 71 mmHg (32.0-48.0); pH, Arterial 7.43 (7.35-7.45)
[2024-09-15 18:18] LABS: Allen Test Performed/OK; Inspired Oxygen, FIO2 40 %; Puncture Site Right Radial
[2024-09-15 18:20] LABS: PO2 49 mmHg (83-108)
[2024-09-15 18:39] LABS: Base Excess 19 (-3-3); HCO3 47 mEq/L (20-26); Inspired Oxygen, FIO2 21 %; O2 Saturation 90 % (91-98); PCO2 64 mmHg (32.0-48.0); pH, Arterial 7.47 (7.35-7.45)
[2024-09-15 18:41] LABS: Allen Test Performed/OK; Puncture Site Left Radial
[2024-09-15 18:42] LABS: PO2 57 mmHg (83-108)
--- NOTE | 2024-09-15 18:44 | PC.RT ---
fio2 increased to 45% per abg results Dr. Drake made aware.
[2024-09-15] MEDS: PIPER/TAZO 3.375 GM 50 ML IV ×2 (19:20→22:14)
[2024-09-15] MEDS: fentaNYL 2,500 MCG/250 ML BAG 2,500 MCG/250 ML BAG IV (20:13)
--- NOTE | 2024-09-15 20:32 | PC.RT ---
RR decreased to 16 due to abg results DR. Gia pina and savage with changes.
--- NOTE | 2024-09-15 21:45 | XR_ITS ---
Examination: AP chest single view Technique one AP portable semiupright chest single view Exam date and time: September 15, 2024 2155 hrs. Comparison September 15, 2024 1445 hrs. Indications: Post orogastric tube placement. Findings: Prominent opacity left base consistent with pneumonia, consider aspiration pneumonia Mild enlargement cardiac contour Tracheal tube tip 3.4 cm above tamera Orogastric tube projects in the stomach tip below the level film Moderate vascular congestion Impression: Prominent left base pneumonia, consider aspiration pneumonia
[2024-09-15 22:51] LABS: Base Excess 18 (-3-3); HCO3 46 mEq/L (20-26); Inspired Oxygen, FIO2 21 %; O2 Saturation 93 % (91-98); PCO2 71 mmHg (32.0-48.0); PO2 76 mmHg (83-108); pH, Arterial 7.42 (7.35-7.45)
[2024-09-15 22:59] LABS: Allen Test Performed/OK; Puncture Site Right Radial
[2024-09-16] VITALS (34 sets, daily range): BP systolic 110–167; BP diastolic 58–125; PULSE 57–98; RESP 12–21; TEMP 36.4–37.5; O2SAT 91–100; BMI 30.9
[2024-09-16] MEDS: PROPOFOL 1,000 MG IVPB 1,000 MG/100 ML VIAL 27.216 MG IV (00:08)
[2024-09-16] MEDS: ALBUTEROL/IPRATROPIUM (Duoneb) RT SOL 3 ML NEBU INH ×2 (02:17→06:25)
[2024-09-16 05:02] LABS: Base Excess 19 (-3-3); HCO3 47 mEq/L (20-26); Inspired Oxygen, FIO2 45 %; O2 Saturation 93 % (91-98); PCO2 70 mmHg (32.0-48.0); PO2 80 mmHg (83-108); pH, Arterial 7.43 (7.35-7.45)
[2024-09-16 05:04] LABS: Allen Test Performed/OK; Puncture Site Right Radial
[2024-09-16] MEDS: PROPOFOL 1,000 MG IVPB 1,000 MG/100 ML VIAL 13.608 MG IV (05:32)
[2024-09-16 06:15] LABS: Basophils % (Auto) 0 % (0-2.5); Eosinophils % (Auto) 0 % (0-10); Hematocrit 38.6 % (41.0-53.0); Hemoglobin 12.1 g/dL (13.5-16.0); Immature Granulocytes % (Auto) 1 % (0-0); Immature Granulocytes Auto 0.11 Thou/mm3 (0.00-0.00); Lymphocytes # (Auto) 0.7 Thou/mm3 (1.0-4.8); Lymphocytes % (Auto) 9 % (10-50); Mean Corpuscular HGB Conc 31.3 g/dl (31.0-37.0); Mean Corpuscular Volume 99 fL (80-100); Monocytes # (Auto) 0.4 Thou/mm3 (0.0-0.8); Monocytes % (Auto) 5 % (0-12); Neutrophils # (Auto) 6.7 Thou/mm3 (1.8-7.7); Neutrophils % (Auto) 84 % (37-80); Nucleated Red Blood Cell % 0 /100 WBC (0); Platelet Count 148 Thou/mm3 (140-440); RDW Standard Deviation 55.9 fL (35.1-43.9)
[2024-09-16] MEDS: PIPER/TAZO 3.375 GM 50 ML IV ×3 (06:24→21:14)
[2024-09-16 07:00] LABS: Alanine Aminotransferase 22 U/L (10-49); Albumin, Serum 3.7 gm/dL (3.4-4.8); Albumin/Globulin Ratio 1.8 (1.2-2.2); Alkaline Phosphatase 43 U/L (46-116); Anion Gap 4 (7-16); Aspartate Amino Transferase 16 U/L (0-34); BUN/Creatinine Ratio 33 Ratio (12-20); Bilirubin,Total 0.4 mg/dL (0.3-1.2); Blood Urea Nitrogen 23 mg/dL (9-23); Calcium 9.3 mg/dL (8.3-10.6); Calcium (Corrected) 9.5 mg/dL (8.5-10.1); Carbon Dioxide > 40.0 mMol/L (20.0-31.0); Chloride 93 mMol/L (98-107); Creatinine (Component) 0.7 mg/dL (0.6-1.3); Estimated Creatinine Clearance 132.5 mL/min (>60); Globulin 2.1 gm/dL (2.3-3.5); Glucose 121 mg/dL (74-106); Osmolality,Calculated 278 (275-295); Potassium 4.2 mMol/L (3.4-5.1); Sodium 137 mMol/L (136-145); Total Protein 5.8 gm/dL (5.7-8.2); eGFR > 60 See Note
[2024-09-16] MEDS: ENOXAPARIN SOD INJ 40 MG/0.4 ML SYRINGE SC (09:20)
[2024-09-16] MEDS: AZITHROMYCIN INJ 250 MG in SODIUM CHLORIDE 0.9% 250 ML 250 ML IV (09:22)
[2024-09-16] MEDS: PANTOPRAZOLE INJ 40 MG VIAL IV (09:31)
[2024-09-16] MEDS: ALBUTEROL RT 2.5 MG/0.5 ML NEBU 5 MG INH ×4 (10:27→22:30)
[2024-09-16] MEDS: SODIUM CHLORIDE RT SOL 0.9% 3 ML NEBU INH ×3 (10:28→19:15)
--- NOTE | 2024-09-16 11:13 | ESPR_ITS ---
Documentation for date of: 09/16/24 Subjective Subjective Interval history: The patient is a 64-year-old male with a previous medical history of COPD, hypertension, hyperlipidemia, substance abuse, A-fib, seizures who was brought in via EMS after he was found slumped in his chair with no pulse and breathing, firefighters initiated CPR, ROSC was already obtained upon EMS arrival. The down time is unknown. He recently had an admission at [facility] due to altered mentation and acute respiratory failure requiring intubation. History is gathered through chart review, no family or friends at the bedside at the moment of examination. ED course: On arrival to the [facility] his blood pressure was 203/93, saturation 93%, on Ambu bag. In the ED he was started on mechanical ventilation, VC mode, RR 18, VT 450, PEEP 5, FiO2 100%. Peak-plato delta was 9. He received DuoNeb inhalations, magnesium sulfate, cefepime and, ceftriaxone and methylprednisone. Labs showed leukocytosis of 11.1, low chloride, low bicarb, normal anion gap lactic acid 9.3 C-reactive protein 1.6 ABGs showed pH 7.21, pCO2 122, pO2 401, HCO3 41, O2 saturation 96. Head CT was negative for stroke or fractures. EKG showed sinus rhythm. CTA negative for PE, prominent pneumonia left base, possible aspiration. U tox was negative. FiO2 was downtitrated to the 60%, SaO2 94%. Patient is sedated on propofol. Patient is being admitted to the ICU for acute hypoxic respiratory failure and post possible respiratory arrest management. 09/16/24: Patient did very well overnight and this morning his sedation was turned off at which point he was noted to be responding to commands so patient was trialed on a spontaneous breathing trial which he successfully passed and was successfully extubated around 10:15 AM. Patient was transitioned over to 4 L via nasal cannula and appears to have no residual deficits from his previous respiratory arrest. Patient will benefit from a LABA plus LAMA plus ICS on discharge and will recommend that primary team attempt to obtain a Trelegy machine for discharge. Patient had a recent hospitalization with similar complaint and this time went into respiratory arrest. Patient likely has chronic retention of CO2 but requires BiPAP and will need to follow-up with his primary care physician for referral for BiPAP. Overall patient is doing fairly well and will be downgraded to med/tele later in the day. Exam Vital Signs Temp Pulse Resp BP Pulse Ox O2 Del Method O2 Flow Rate 98.9 F 71 18 136/70 H 95 Mechanical Ventilation 4 09/16/24 08:01 09/16/24 10:30 09/16/24 10:30 09/16/24 09:13 09/16/24 10:30 09/16/24 08:01 09/16/24 10:30 FiO2 40 09/16/24 09:13 Narrative Exam Gen: Well-developed and well-nourished, disheveled. ANO x 3, able to converse without shortness of breath HEENT: NCAT, PERRLA, EOMI, MMM, anicteric conjunctivae. CVS: normal S1 and S2. RRR. No M/R/G. Resp: Distant breathing sounds, diffuse rhonchi. Abd: soft, non-tender, non-distended. BS+ in all 4 quadrants. MSK: Good ROM in BUE & BLE. Face has red macular squamous excoriations/eruptions appearing seborrheic dermatitis. Hyperpigmentation and woody appearance of lower extremities. Neuro: CN II-XII grossly intact. Strength 5/5 in BUE & BLE. Awake and alert. Psych: appropriate mood and affect. Objective Labs 09/21/24 04:40 09/21/24 04:40 Labs: Laboratory Results - last 24 hr 09/15/24 09/15/24 09/15/24 12:27 12:51 13:00 WBC 11.1 H D RBC 4.28 L Hgb 13.4 L D Hct 45.7 MCV 107 H MCH 31.3 MCHC 29.3 L RDW Std Deviation 61.2 H Plt Count 176 D Neut % (Auto) 58 Lymph % (Auto) 23 Dixon % (Auto) 9 Eos % (Auto) 1 Baso % (Auto) 1 Neut # (Auto) 6.5 Lymph # (Auto) 2.5 Dixon # (Auto) 1.0 H Eos # (Auto) 0.1 Baso # (Auto) 0.1 Immature Gran # (Auto) 0.97 H Absolute Nucleated RBC 0.00 Immature Gran % 9 H Nucleated RBC % 0 ESR 74 H PT 11.4 INR 1.0 APTT 27.7 D-Dimer 2830 H Puncture Site Right Radial ABG pH 7.21 L ABG pCO2 102 H* ABG pO2 401 H ABG HCO3 41 H ABG O2 Saturation 96 ABG Base Excess 9 H FiO2 100 Sodium 136 Potassium 4.6 Chloride 93 L Carbon Dioxide 35.2 H Anion Gap 8 BUN 20 Creatinine 0.9 Estim Creat Clear Calc 107.8 eGFR > 60 BUN/Creatinine Ratio 22 H Glucose 190 H Calculated Osmolality 279 Lactic Acid 9.3 H* Calcium 9.3 Corrected Calcium 9.3 Magnesium 2.1 Total Bilirubin 0.3 AST 18 ALT 27 Alkaline Phosphatase 80 Ammonia Troponin I < 0.020 C-Reactive Prot, Quant 1.6 H B-Natriuretic Peptide 77 Total Protein 7.1 Albumin 4.5 Globulin 2.6 Albumin/Globulin Ratio 1.7 Procalcitonin 0.21 TSH 1.91 Ur Collection Type Clean Catch Urine Color Yellow Urine Clarity Cloudy A Urine pH 6.0 Ur Specific [place] 1.024 Urine Protein 3+ A Urine Glucose (UA) Trace Urine Ketones Negative Urine Blood 1+ A Urine Nitrite Negative Urine Bilirubin Negative Urine Urobilinogen (Auto) Negative Ur Leukocyte Esterase Negative Urine RBC 24 H Urine WBC 56 H Ur Squamous Epith Cells 3 Urine Bacteria 2+ A Granular Casts 2 H Urine Opiates Screen Negative Urine Fentanyl Screen Negative Ur Barbiturates Screen Negative U Amphetamin/Meth Scrn Negative U Benzodiazepines Scrn Negative U Cocaine Metab Screen Negative U Marijuana (THC) Screen Negative Ethyl Alcohol < 10.0 09/15/24 09/15/24 09/15/24 13:20 16:14 18:10 WBC RBC Hgb Hct MCV MCH MCHC RDW Std Deviation Plt Count Neut % (Auto) Lymph % (Auto) Dixon % (Auto) Eos % (Auto) Baso % (Auto) Neut # (Auto) Lymph # (Auto) Dixon # (Auto) Eos # (Auto) Baso # (Auto) Immature Gran # (Auto) Absolute Nucleated RBC Immature Gran % Nucleated RBC % ESR PT INR APTT D-Dimer Puncture Site Right Radial ABG pH 7.43 D ABG pCO2 71 H* D ABG pO2 49 L* D ABG HCO3 47 H ABG O2 Saturation 86 L ABG Base Excess 19 H FiO2 40 Sodium Potassium Chloride Carbon Dioxide Anion Gap BUN Creatinine Estim Creat Clear Calc eGFR BUN/Creatinine Ratio Glucose Calculated Osmolality Lactic Acid 1.2 Calcium Corrected Calcium Magnesium Total Bilirubin AST ALT Alkaline Phosphatase Ammonia 24 Troponin I C-Reactive Prot, Quant B-Natriuretic Peptide Total Protein Albumin Globulin Albumin/Globulin Ratio Procalcitonin TSH Ur Collection Type Urine Color Urine Clarity Urine pH Ur Specific [place] Urine Protein Urine Glucose (UA) Urine Ketones Urine Blood Urine Nitrite Urine Bilirubin Urine Urobilinogen (Auto) Ur Leukocyte Esterase Urine RBC Urine WBC Ur Squamous Epith Cells Urine Bacteria Granular Casts Urine Opiates Screen Urine Fentanyl Screen Ur Barbiturates Screen U Amphetamin/Meth Scrn U Benzodiazepines Scrn U Cocaine Metab Screen U Marijuana (THC) Screen Ethyl Alcohol 09/15/24 09/15/24 09/16/24 18:32 22:37 04:45 WBC RBC Hgb Hct MCV MCH MCHC RDW Std Deviation Plt Count Neut % (Auto) Lymph % (Auto) Dixon % (Auto) Eos % (Auto) Baso % (Auto) Neut # (Auto) Lymph # (Auto) Dixon # (Auto) Eos # (Auto) Baso # (Auto) Immature Gran # (Auto) Absolute Nucleated RBC Immature Gran % Nucleated RBC % ESR PT INR APTT D-Dimer Puncture Site Left Radial Right Radial Right Radial ABG pH 7.47 H 7.42 7.43 ABG pCO2 64 H 71 H* 70 H ABG pO2 57 L* 76 L 80 L ABG HCO3 47 H 46 H 47 H ABG O2 Saturation 90 L 93 93 ABG Base Excess 19 H 18 H 19 H FiO2 21 21 45 Sodium Potassium Chloride Carbon Dioxide Anion Gap BUN Creatinine Estim Creat Clear Calc eGFR BUN/Creatinine Ratio Glucose Calculated Osmolality Lactic Acid Calcium Corrected Calcium Magnesium Total Bilirubin AST ALT Alkaline Phosphatase Ammonia Troponin I C-Reactive Prot, Quant B-Natriuretic Peptide Total Protein Albumin Globulin Albumin/Globulin Ratio Procalcitonin TSH Ur Collection Type Urine Color Urine Clarity Urine pH Ur Specific [place] Urine Protein Urine Glucose (UA) Urine Ketones Urine Blood Urine Nitrite Urine Bilirubin Urine Urobilinogen (Auto) Ur Leukocyte Esterase Urine RBC Urine WBC Ur Squamous Epith Cells Urine Bacteria Granular Casts Urine Opiates Screen Urine Fentanyl Screen Ur Barbiturates Screen U Amphetamin/Meth Scrn U Benzodiazepines Scrn U Cocaine Metab Screen U Marijuana (THC) Screen Ethyl Alcohol 09/16/24 05:42 WBC 8.0 RBC 3.90 L Hgb 12.1 L Hct 38.6 L MCV 99 MCH 31.0 MCHC 31.3 RDW Std Deviation 55.9 H Plt Count 148 Neut % (Auto) 84 H Lymph % (Auto) 9 L Dixon % (Auto) 5 Eos % (Auto) 0 Baso % (Auto) 0 Neut # (Auto) 6.7 Lymph # (Auto) 0.7 L Dixon # (Auto) 0.4 Eos # (Auto) 0.0 Baso # (Auto) 0.0 Immature Gran # (Auto) 0.11 H Absolute Nucleated RBC 0.00 Immature Gran % 1 H Nucleated RBC % 0 ESR PT INR APTT D-Dimer Puncture Site ABG pH ABG pCO2 ABG pO2 ABG HCO3 ABG O2 Saturation ABG Base Excess FiO2 Sodium 137 Potassium 4.2 Chloride 93 L Carbon Dioxide > 40.0 H Anion Gap 4 L BUN 23 Creatinine 0.7 Estim Creat Clear Calc 132.5 eGFR > 60 BUN/Creatinine Ratio 33 H Glucose 121 H D Calculated Osmolality 278 Lactic Acid Calcium 9.3 Corrected Calcium 9.5 Magnesium Total Bilirubin 0.4 AST 16 ALT 22 Alkaline Phosphatase 43 L D Ammonia Troponin I C-Reactive Prot, Quant B-Natriuretic Peptide Total Protein 5.8 Albumin 3.7 D Globulin 2.1 L Albumin/Globulin Ratio 1.8 Procalcitonin TSH Ur Collection Type Urine Color Urine Clarity Urine pH Ur Specific [place] Urine Protein Urine Glucose (UA) Urine Ketones Urine Blood Urine Nitrite Urine Bilirubin Urine Urobilinogen (Auto) Ur Leukocyte Esterase Urine RBC Urine WBC Ur Squamous Epith Cells Urine Bacteria Granular Casts Urine Opiates Screen Urine Fentanyl Screen Ur Barbiturates Screen U Amphetamin/Meth Scrn U Benzodiazepines Scrn U Cocaine Metab Screen U Marijuana (THC) Screen Ethyl Alcohol ABG Interpretation ABG results: 09/15/24 09/15/24 09/15/24 13:00 18:10 18:32 ABG pH 7.21 L 7.43 D 7.47 H ABG pCO2 102 H* 71 H* D 64 H ABG pO2 401 H 49 L* D 57 L* ABG HCO3 41 H 47 H 47 H ABG O2 Saturation 96 86 L 90 L ABG Base Excess 9 H 19 H 19 H 09/15/24 09/16/24 22:37 04:45 ABG pH 7.42 7.43 ABG pCO2 71 H* 70 H ABG pO2 76 L 80 L ABG HCO3 46 H 47 H ABG O2 Saturation 93 93 ABG Base Excess 18 H 19 H Quality Measures Quality Measures none Assessment & Plan Assessment Current Active Medications: Generic Name Dose Route Start Last Admin Trade Name Freq PRN Reason Stop Dose Admin Acetaminophen 650 mg 09/15/24 15:22 Acetaminophen 325 Mg Tablet PO 10/15/24 14:30 Q4HR PRN Pain Scale 1-3 or fever >99.0 Albuterol 5 mg 09/16/24 11:00 09/16/24 10:27 Albuterol Rt 2.5 Mg/0.5 Ml Nebu INH 10/16/24 10:59 5 mg Q4HRRT FREDIS Administration Enoxaparin Sodium 40 mg 09/16/24 09:00 09/16/24 09:20 Enoxaparin Sod Inj 40 Mg/0.4 Ml Syringe SC 09/30/24 08:59 40 mg QDAY FREDIS Administration Propofol 1,000 mg in 100 mls @ 3.402 mls/hr 09/15/24 12:45 09/16/24 08:29 Diprivan Ivpb IV 10/15/24 12:44 20 mcg/kg/min .Q24H PRN 13.608 mls/hr PER PROTOCOL Titration Protocol 5 MCG/KG/MIN Fentanyl Citrate 2,500 mcg in 250 mls @ 2.5 mls/hr 09/15/24 18:04 09/16/24 08:00 Sublimaze Inj 2,500 Mcg/250 Ml Bag IV 09/20/24 18:03 75 mcg/hr .Q24H PRN 7.5 mls/hr PER PROTOCOL Titration Protocol 25 MCG/HR Piperacillin/Tazobactam/Dextrose 50 mls @ 12.5 mls/hr 09/15/24 22:00 09/16/24 06:24 Zosyn IV 09/22/24 21:59 12.5 mls/hr Q8HR FREDIS Administration Azithromycin 250 mg/ Sodium 250 mls @ 250 mls/hr 09/16/24 09:00 09/16/24 09:22 Chloride IV 09/23/24 08:59 250 mls/hr QDAY FREDIS Administration Methylprednisolone Sodium Succinate 40 mg 09/16/24 09:00 09/16/24 09:20 Methylprednisolone Sod Succ 40 Mg Vial IVP 09/23/24 08:59 40 mg QDAY FREDIS Administration Ondansetron HCl 4 mg 09/15/24 14:31 Ondansetron Inj 2 Mg/Ml Inj 2 Ml IV 10/15/24 14:30 Q8HR PRN NAUSEA OR VOMITING Pantoprazole Sodium 40 mg 09/16/24 09:30 09/16/24 09:31 Pantoprazole Inj 40 Mg Vial IV 10/16/24 09:29 40 mg QDAY FREDIS Administration Sodium Chloride 3 ml 09/16/24 07:33 09/16/24 10:28 Sodium Chloride Rt Marita 0.9% 3 Ml Nebu INH 10/16/24 07:32 3 ml PRN PRN Administration TO MIX WITH ALBUTEROL Plan The patient is a 64-year-old male with a previous medical history of COPD, hypertension, hyperlipidemia, substance abuse (A-fib, seizures who was brought in via EMS after he was found slumped in his chair with no pulse and breathing, firefighters initiated CPR, ROSC upon EMS arrival. Patient was being admitted to the ICU for acute hypoxic respiratory failure and post possible respiratory arrest management. NEURO #No active problems Patient is ANO x 3 able to follow commands and converse comfortably and appropriately CARDIO #History of hypertension Plan: - will continue to monitor BP. Not on any antihypertensives PULM #Acute hypoxic hypercapnic respiratory failure #COPD exacerbation #Left lung pneumonia Patient has history of COPD and was found unresponsive at home with no breathing. ABGs showed respiratory acidosis. Chest Xray showed left lung pneumonia. 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 Plan: - consider supplementing B12 ENDO #No active problems ID #Left base pneumonia #COPD exacerbation Plan: - Zosyn 09/15-current - Azithromycin 500 mg once, then 250 mg qday - blood and sputum cultures pending. Gram stain reveals 2+ GPC MSK #No active problems SKIN #Chronic venous stasis dermatitis DVT prophylaxis:lovenox 40 mg sc GI prophylaxis: pantprazole 40 mg IV Diet: Cardiac diet Yoder: Present Lines: peripheral Antibiotics: Azithromycin, Zosyn CODE STATUS: FULLCODE Reason for ICU care: AHRF due to COPD exacerbation and status post repiratory arrest Plan of care discussed with supervising attending Dr. Rachael Rust M.D. PGY-3 Attending Provider Attestation/Addendum Patient seen and examined with above resident, Anjel Rust MD. I agree with the findings, assessment, and plan of care as documented except for any differences below. Patient with respiratory arrest likely in the setting of severe COPD and inability to ventilate. Patient tolerated SBT well with preserved mentation today and successfully extubated to nasal cannula. Patient started on therapy for acute COPD exacerbation with azithromycin, Solu-Medrol, and bronchodilators. Patient with recurrent admissions and will likely benefit from long-term use of LAMA/ LABA/and ICS in combination. Adequate antibiotic for possible left lower lobe pneumonia as well with coverage for healthcare associated infection given his recurrent use of the healthcare setting. Patient will be stable for transfer likely later on today. Total critical care time: I personally spent 35 minutes for review of physiologic parameters, directing plan of care throughout the day, and counseling patient at bedside. This is exclusive of time spent teaching housestaff or performing any separate billable procedures. Patient continues to require critical care services for acute hypoxic respiratory failure secondary to acute COPD exacerbation. Patient at risk for increased morbidity and at high risk for mortality given recent respiratory arrest.
--- NOTE | 2024-09-16 15:36 | PC.SS ---
AUDIO VISUAL COLLECTIONS COORDINATOR completed initial assessment via chart review and bedside contact with the patient. Patient confirmed residing at home with roommate. Patient utilizes a walker to assist with ambulation. Patient utilizes oxygen at home. Prior to admission the patient possessed the ability to complete ADL?s independently. Patient?s medical surrogate decision maker is Daniel meraz . Patient?s PCP is Dr. Jones [facility]. Patient does not possess any specialty providers. Patient does not participate with dialysis. product manager financial services will discuss discharge needs at an appropriate future time. No further intervention required at this time, social services specialist will be available to address any further concerns. Next of Kin: Daniel Mynor D/C Plan: Pending
--- NOTE | 2024-09-16 16:19 | PD.RESEVENT ---
Documentation for date of: 09/16/24 Event Note Event Note: The patient is a 64-year-old male with a past medical history of COPD on 4 L of oxygen at home, hypertension, hyperlipidemia, documented history of substance abuse, A-fib and seizures who was brought in via EMS on 09/15/2024 after he was found slumped in his chair with no pulse. CPR was initiated and ROSC was obtained by arrival to the ED, note that downtime was unknown. ABGs on admission showed pCO2 of 122 with a pH 7.21. In the ED, patient was started on mechanical ventilation and intubated, sedated with propofol. The patient was admitted to the ICU for acute hypoxic hypercapnic respiratory failure. Overnight, the patient did well and this morning his sedation was turned off and is the patient was responding to commands, spontaneous breathing trial was done which she passed and the patient was actually extubated earlier 10:15 AM and transition to 4 L via nasal cannula. Blood cultures returned negative, sputum Gram stain showed 2+ gram-positive cocci and he was started on azithromycin. The patient is currently hemodynamically stable and is downgraded back to the floors. He will benefit from LAMA, LABA and ICS on discharge and a Trilogy ventilator. Will take over management on 09/17/2024. Case was discussed with senior resident Dr Parmar and attending physician, Dr Yasmani Madrigal MD PGY-1
--- NOTE | 2024-09-16 19:04 | PC.NURSE ---
assume care of pt. pt med tele and will be transferred to [id number]. report given to Alecia THOMPSON by Black THOMPSON.
[2024-09-17] VITALS (14 sets, daily range): BP systolic 107–139; BP diastolic 33–73; PULSE 65–90; RESP 16–22; TEMP 36.2–37.6; O2SAT 89–100; BMI 31.8
--- NOTE | 2024-09-17 | XR_ITS ---
Examination: MRI lumbar spine without contrast Date and time of exam: Left femur Indications: Hip pain months Technique: Multiple MRI axial and sagittal sections lumbar spine. Sagittal T2-weighted images, TR 3500, TE 118 T1 weighted transverse sections, TR 688 T8.5, T2-weighted sagittal sections T1 weighted sagittal sections TR 621, TE 30 T2 axial sections, TR 4, 190, TE 84. 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
[2024-09-17] MEDS: PIPER/TAZO 3.375 GM 50 ML IV ×3 (05:40→21:48)
[2024-09-17] MEDS: SODIUM CHLORIDE RT SOL 0.9% 3 ML NEBU INH ×2 (06:56→15:51)
[2024-09-17] MEDS: ALBUTEROL RT 2.5 MG/0.5 ML NEBU 5 MG INH ×2 (06:56→15:51)
[2024-09-17 08:22] LABS: Basophils % (Auto) 0 % (0-2.5); Eosinophils % (Auto) 0 % (0-10); Hematocrit 39.4 % (41.0-53.0); Hemoglobin 12.2 g/dL (13.5-16.0); Immature Granulocytes % (Auto) 1 % (0-0); Immature Granulocytes Auto 0.09 Thou/mm3 (0.00-0.00); Lymphocytes # (Auto) 1.2 Thou/mm3 (1.0-4.8); Lymphocytes % (Auto) 15 % (10-50); Mean Corpuscular Hemoglobin 30.6 pg (25.0-35.0); Mean Corpuscular Volume 99 fL (80-100); Monocytes # (Auto) 0.5 Thou/mm3 (0.0-0.8); Monocytes % (Auto) 6 % (0-12); Neutrophils # (Auto) 5.9 Thou/mm3 (1.8-7.7); Neutrophils % (Auto) 77 % (37-80); Nucleated Red Blood Cell % 0 /100 WBC (0); Platelet Count 146 Thou/mm3 (140-440); RDW Standard Deviation 58.4 fL (35.1-43.9); Red Blood Count 3.99 Miln/mm3 (4.50-5.90); White Blood Count 7.7 Thou/mm3 (3.8-10.6)
[2024-09-17 09:02] LABS: Alanine Aminotransferase 19 U/L (10-49); Albumin, Serum 3.8 gm/dL (3.4-4.8); Albumin/Globulin Ratio 1.6 (1.2-2.2); Alkaline Phosphatase 41 U/L (46-116); Anion Gap 4 (7-16); Aspartate Amino Transferase 15 U/L (0-34); BUN/Creatinine Ratio 24 Ratio (12-20); Blood Urea Nitrogen 19 mg/dL (9-23); Calcium 9.2 mg/dL (8.3-10.6); Calcium (Corrected) 9.4 mg/dL (8.5-10.1); Carbon Dioxide 38.9 mMol/L (20.0-31.0); Chloride 97 mMol/L (98-107); Creatinine (Component) 0.8 mg/dL (0.6-1.3); Estimated Creatinine Clearance 117.8 mL/min (>60); Globulin 2.4 gm/dL (2.3-3.5); Glucose 102 mg/dL (74-106); Magnesium 2.3 mg/dL (1.6-2.6); Osmolality,Calculated 281 (275-295); Potassium 4.4 mMol/L (3.4-5.1); Sodium 140 mMol/L (136-145); Total Protein 6.2 gm/dL (5.7-8.2); eGFR > 60 See Note
[2024-09-17] MEDS: AZITHROMYCIN INJ 250 MG in SODIUM CHLORIDE 0.9% 250 ML 250 ML IV (09:29)
[2024-09-17] MEDS: ENOXAPARIN SOD INJ 40 MG/0.4 ML SYRINGE SC (09:30)
[2024-09-17 12:16] LABS: Bilirubin,Total 0.6 mg/dL (0.3-1.2)
--- NOTE | 2024-09-17 13:13 | ESPR_ITS ---
<Statement entered by Amanda Parmar DO - 09/17/24 15:32> Senior attestation: Patient was examined and case was reviewed with team including attending physician. Note reviewed, I agree with most of its contents and agree with the patient's care. MRI of left hip ordered given concerns of avascular necrosis on left femoral head, patient did endorse pain on left hip. Patient states he is claustrophobic but is willing to try MRI, not interested in any medications for imaging. Case management team made aware of seeking Trilogy machine for discharge. PT pending. Amanda Parmar DO PGY-3 Documentation for date of: 09/17/24 Subjective Subjective Interval history: Patient seen at bedside, downgraded from ICU overnight. Patient is currently on 5.5 L nasal cannula saturating well Patient has history of COPD O2 saturation goal 88-92 Patient CTAP showed suspicion of AVN of left femur head Patient scheduled for MRI of left femur ICU recommends discharge on LABA/LAMA/ICS and Trelegy machine. Referred to physical therapy Will continue to monitor patient Exam Vital Signs Temp Pulse Resp BP Pulse Ox O2 Del Method O2 Flow Rate 97.1 F 82 20 107/44 L 89 L Room Air 5.5 09/17/24 08:00 09/17/24 11:03 09/17/24 08:00 09/17/24 08:00 09/17/24 08:00 09/17/24 08:00 09/17/24 08:00 FiO2 40 09/16/24 09:13 Narrative Exam Gen: Well-developed and well-nourished, disheveled. A&O x 3, able to hold conversation, in no acute distress. HEENT: NCAT, PERRLA, EOMI, MMM, anicteric conjunctivae. CVS: normal S1 and S2. RRR. No M/R/G. Resp: Distant breathing sounds, diffuse rhonchi. Abd: soft, non-tender, non-distended. BS+ in all 4 quadrants. MSK: Good ROM in BUE & BLE. Face has red macular squamous excoriations/eruptions appearing seborrheic dermatitis. Hyperpigmentation and woody appearance of lower extremities. Neuro: CN II-XII grossly intact. Strength 5/5 in BUE & BLE. Awake and alert. Psych: appropriate mood and affect. Objective Labs 09/18/24 05:06 09/18/24 05:06 Labs: Laboratory Results - last 24 hr 09/17/24 07:47 WBC 7.7 RBC 3.99 L Hgb 12.2 L Hct 39.4 L MCV 99 MCH 30.6 MCHC 31.0 RDW Std Deviation 58.4 H Plt Count 146 Neut % (Auto) 77 Lymph % (Auto) 15 [place] % (Auto) 6 Eos % (Auto) 0 Baso % (Auto) 0 Neut # (Auto) 5.9 Lymph # (Auto) 1.2 [place] # (Auto) 0.5 Eos # (Auto) 0.0 Baso # (Auto) 0.0 Immature Gran # (Auto) 0.09 H Absolute Nucleated RBC 0.00 Immature Gran % 1 H Nucleated RBC % 0 Sodium 140 Potassium 4.4 Chloride 97 L Carbon Dioxide 38.9 H Anion Gap 4 L BUN 19 Creatinine 0.8 Estim Creat Clear Calc 117.8 eGFR > 60 BUN/Creatinine Ratio 24 H Glucose 102 Calculated Osmolality 281 Calcium 9.2 Corrected Calcium 9.4 Magnesium 2.3 Total Bilirubin 0.6 AST 15 ALT 19 Alkaline Phosphatase 41 L Total Protein 6.2 Albumin 3.8 Globulin 2.4 Albumin/Globulin Ratio 1.6 ABG Interpretation ABG results: 09/15/24 09/15/24 09/15/24 13:00 18:10 18:32 ABG pH 7.21 L 7.43 D 7.47 H ABG pCO2 102 H* 71 H* D 64 H ABG pO2 401 H 49 L* D 57 L* ABG HCO3 41 H 47 H 47 H ABG O2 Saturation 96 86 L 90 L ABG Base Excess 9 H 19 H 19 H 09/15/24 09/16/24 22:37 04:45 ABG pH 7.42 7.43 ABG pCO2 71 H* 70 H ABG pO2 76 L 80 L ABG HCO3 46 H 47 H ABG O2 Saturation 93 93 ABG Base Excess 18 H 19 H Quality Measures Quality Measures none Assessment & Plan Assessment Current Active Medications: Generic Name Dose Route Start Last Admin Trade Name Freq PRN Reason Stop Dose Admin Acetaminophen 650 mg 09/15/24 15:22 Acetaminophen 325 Mg Tablet PO 10/15/24 14:30 Q4HR PRN Pain Scale 1-3 or fever >99.0 Albuterol 5 mg 09/16/24 11:00 09/17/24 11:03 Albuterol Rt 2.5 Mg/0.5 Ml Nebu INH 10/16/24 10:59 Not Given Q4HRRT FREDIS Azithromycin 250 mg 09/18/24 09:00 Azithromycin 250 Mg Tablet PO 09/23/24 08:59 QDAY FREDIS Enoxaparin Sodium 40 mg 09/16/24 09:00 09/17/24 09:30 Enoxaparin Sod Inj 40 Mg/0.4 Ml Syringe SC 09/30/24 08:59 40 mg QDAY FREDIS Administration Piperacillin/Tazobactam/Dextrose 50 mls @ 12.5 mls/hr 09/15/24 22:00 09/17/24 05:40 Zosyn IV 09/22/24 21:59 12.5 mls/hr Q8HR FREDIS Administration Methylprednisolone Sodium Succinate 40 mg 09/16/24 09:00 09/17/24 09:31 Methylprednisolone Sod Succ 40 Mg Vial IVP 09/23/24 08:59 40 mg QDAY FREDIS Administration Ondansetron HCl 4 mg 09/15/24 14:31 Ondansetron Inj 2 Mg/Ml Inj 2 Ml IV 10/15/24 14:30 Q8HR PRN NAUSEA OR VOMITING Sodium Chloride 3 ml 09/16/24 07:33 09/17/24 06:56 Sodium Chloride Rt Marita 0.9% 3 Ml Nebu INH 10/16/24 07:32 3 ml PRN PRN Administration TO MIX WITH ALBUTEROL Plan Assessment and Plan: Summary: Mr. Lowe is a 64-year-old male with a previous medical history of COPD, hypertension, hyperlipidemia, substance abuse, A-fib and seizures who was brought in via EMS after he was found slumped in his chair with no pulse and breathing, firefighters initiated CPR, ROSC upon EMS arrival. Patient admitted to the ICU for acute hypoxic respiratory failure and post possible respiratory arrest management. Patient was found to have left lung pneumonia and COPD exacerbation. #Acute hypoxic hypercapnic respiratory failure #COPD exacerbation #Left lung pneumonia Patient has history of COPD and was found unresponsive at home with no breathing. ABGs showed respiratory acidosis. Chest X-Ray showed left lung pneumonia, suspicion of aspiration pneumonia Patient is on 4 L baseline via nasal cannula Patient was admitted to ICU status postintubation because of respiratory failure, patient condition improved and was downgraded to floors. Blood cultures negative after 48 hours, sputum ET culture negative, MRSA nasal screen negative Plan: -Continue Zosyn (09/15- -continue azithromycin (09/15- -continue methylprednisolone 40 mg daily -Continue albuterol every 4 hours [employer] -Supplemental oxygen as needed -Titrate oxygen to baseline as patient tolerates -Aspiration precautions #?AVN left femur head CT abdomen pelvis shows concern of avascular necrosis of left femur head Patient does complain of some pain in the left hip on and off Plan: -Ordered MRI left femur head to rule out AVN -Will consider orthopedic consult -Referred to physical therapy #HFpEF (EF 55 to 60%) #Diastolic heart failure Patient reports he was diagnosed with heart failure at [facility]. ECHO dated 09/07/2024 shows normal LV size and function, estimated EF 55 to 60%, stage I diastolic dysfunction, mild RV and RA dilation, normal RV function. Trace TR. Currently patient does not look fluid overloaded, patient is on furosemide 40 mg p.o. daily at home Plan: -Will consider resuming Lasix if patient exhibits signs of fluid overload. -Avoid cardiotoxic agents -Strict intake and output #Mild Macrocytic anemia 09/08 B12 level 204, decreased. Plan: -Started on oral vitamin B12 -Monitor CBC in a.m. #Atrial fibrillation Patient is rate controlled [id number] score 2 Patient is on Eliquis 5 mg twice daily at home Will hold Eliquis anticipating orthopedic consult due to AVN, patient is currently on Lovenox for DVT prophylaxis #Chronic venous stasis dermatitis #History of hypertension #History of seizures -Patient denies history of any seizures -Patient is not on any antihypertensives at home -Pending med rec DVT prophylaxis: Lovenox GI prophylaxis: Not indicated Diet: Cardiac diet Lines: Peripheral IV Code status: Full code Case discussed with Attending Dr. Siddiqui and Dr. Parmar PGY3. Matteo Patel PGY1 Attending Provider Attestation/Addendum Face to face evaluation was performed by me. I have personally seen and examined the patient. I discussed the assessment and plan with the entire medicine team. I reviewed available medical records, imaging studies, laboratory results. I agree with the above subjective data, objective findings, assessment and plan except as corrected by me or noted below Face to face evaluation was performed by me. I have personally seen and examined the patient. I discussed the assessment and plan with the entire medicine team. I reviewed available medical records, imaging studies, laboratory results. I agree with the above subjective data, objective findings, assessment and plan except as corrected by me or noted below Acute hypoxic and hypercapnic respiratory failure COPD with acute exacerbation Bacterial pneumonia right lung Chronic diastolic heart failure, does not seem to be in exacerbation at this point History of seizures Chronic venous status dermatitis Left femoral AVN on CT scan -Continue supplemental oxygenation, breathing treatments, IV steroids, antibiotics. Obtain MRI of left hip discussed with patient to further evaluate for AVN. Wean down oxygenation as possible -Continue other medications as ordered, monitor vitals, labs, clinical course closely DVT prophylaxis with Lovenox
[2024-09-17] MEDS: VIT B12/Vit C/FA (Nephrovite) TABLET 1 TAB PO (16:54)
[2024-09-17] MEDS: ALBUTEROL/IPRATROPIUM (Duoneb) RT SOL 3 ML NEBU INH (20:54)
[2024-09-18] VITALS (12 sets, daily range): BP systolic 100–134; BP diastolic 53–85; PULSE 60–96; RESP 16–32; TEMP 36.4–36.7; O2SAT 88–98
[2024-09-18] MEDS: ALBUTEROL/IPRATROPIUM (Duoneb) RT SOL 3 ML NEBU INH ×6 (01:50→22:27)
[2024-09-18] MEDS: PIPER/TAZO 3.375 GM 50 ML IV ×3 (05:22→21:56)
[2024-09-18 06:24] LABS: Basophils % (Auto) 0 % (0-2.5); Eosinophils % (Auto) 0 % (0-10); Hematocrit 37.8 % (41.0-53.0); Hemoglobin 11.7 g/dL (13.5-16.0); Immature Granulocytes % (Auto) 2 % (0-0); Immature Granulocytes Auto 0.08 Thou/mm3 (0.00-0.00); Lymphocytes # (Auto) 0.8 Thou/mm3 (1.0-4.8); Lymphocytes % (Auto) 15 % (10-50); Mean Corpuscular Hemoglobin 31.2 pg (25.0-35.0); Mean Corpuscular Volume 101 fL (80-100); Monocytes # (Auto) 0.4 Thou/mm3 (0.0-0.8); Monocytes % (Auto) 7 % (0-12); Neutrophils # (Auto) 4.2 Thou/mm3 (1.8-7.7); Neutrophils % (Auto) 77 % (37-80); Nucleated Red Blood Cell % 0 /100 WBC (0); Platelet Count 147 Thou/mm3 (140-440); RDW Standard Deviation 59.9 fL (35.1-43.9); Red Blood Count 3.75 Miln/mm3 (4.50-5.90); White Blood Count 5.5 Thou/mm3 (3.8-10.6)
[2024-09-18 06:31] LABS: Alanine Aminotransferase 15 U/L (10-49); Albumin, Serum 3.7 gm/dL (3.4-4.8); Albumin/Globulin Ratio 1.8 (1.2-2.2); Alkaline Phosphatase 41 U/L (46-116); Anion Gap 3 (7-16); Aspartate Amino Transferase 11 U/L (0-34); BUN/Creatinine Ratio 19 Ratio (12-20); Bilirubin,Total 0.5 mg/dL (0.3-1.2); Blood Urea Nitrogen 15 mg/dL (9-23); Calcium 8.6 mg/dL (8.3-10.6); Calcium (Corrected) 8.8 mg/dL (8.5-10.1); Carbon Dioxide 39.7 mMol/L (20.0-31.0); Chloride 95 mMol/L (98-107); Creatinine (Component) 0.8 mg/dL (0.6-1.3); Estimated Creatinine Clearance 116.7 mL/min (>60); Globulin 2.1 gm/dL (2.3-3.5); Glucose 129 mg/dL (74-106); Magnesium 2.3 mg/dL (1.6-2.6); Osmolality,Calculated 278 (275-295); Potassium 4.2 mMol/L (3.4-5.1); Sodium 138 mMol/L (136-145); Total Protein 5.8 gm/dL (5.7-8.2); eGFR > 60 See Note
[2024-09-18] MEDS: VIT B12/Vit C/FA (Nephrovite) TABLET 1 TAB PO (08:48)
[2024-09-18] MEDS: AZITHROMYCIN 250 MG TABLET PO (08:48)
[2024-09-18] MEDS: guaiFENesin ER 600 MG TABCR PO ×2 (10:46→21:56)
--- NOTE | 2024-09-18 12:41 | ESPR_ITS ---
<Statement entered by Amanda Parmra DO - 09/18/24 15:11> Senior attestation: Patient was examined and case was reviewed with team including attending physician. Note reviewed, I agree with most of its contents and agree with the patient's care. MRI revealed bilateral avascular necrosis of femoral heads, orthopedic surgeon Dr. Wong was consulted and advised outpatient follow up. Patient currently pending Trilogy machine for discharge, will continue weaning off nasal cannula as tolerated. Amanda Parmar DO PGY-3 Documentation for date of: 09/18/24 Subjective Subjective Interval history: Patient seen at bedside, saturating in goal range on 5.5 L. Will change frequency of DuoNebs to every 4 hours Started on methylprednisone 40 twice daily Patient's MRI was positive for bilateral avascular necrosis of femur head. Consulted Dr. Wong, orthopedic surgeon who recommended outpatient follow-up. Patient will be seen by physical therapy tomorrow. Will continue to monitor patient for resolution of COPD exacerbation Exam Vital Signs Temp Pulse Resp BP Pulse Ox O2 Del Method O2 Flow Rate 97.7 F 82 20 107/53 L 94 L Nasal Cannula 4 09/18/24 08:00 09/18/24 11:36 09/18/24 11:36 09/18/24 08:00 09/18/24 11:36 09/18/24 08:00 09/18/24 11:36 FiO2 80 09/18/24 08:00 Narrative Exam Gen: Well-developed and well-nourished, disheveled. A&O x 3, able to hold conversation, in no acute distress. HEENT: NCAT, PERRLA, EOMI, MMM, anicteric conjunctivae. CVS: normal S1 and S2. RRR. No M/R/G. Resp: Distant breathing sounds, diffuse rhonchi. Abd: soft, non-tender, non-distended. BS+ in all 4 quadrants. MSK: Good ROM in BUE & BLE. Face has red macular squamous excoriations/eruptions appearing seborrheic dermatitis. Hyperpigmentation and woody appearance of lower extremities. Neuro: CN II-XII grossly intact. Strength 5/5 in BUE & BLE. Awake and alert. Psych: appropriate mood and affect. Objective Labs 09/18/24 05:06 09/18/24 05:06 Labs: Laboratory Results - last 24 hr 09/18/24 05:06 WBC 5.5 RBC 3.75 L Hgb 11.7 L Hct 37.8 L MCV 101 H MCH 31.2 MCHC 31.0 RDW Std Deviation 59.9 H Plt Count 147 Neut % (Auto) 77 Lymph % (Auto) 15 [place] % (Auto) 7 Eos % (Auto) 0 Baso % (Auto) 0 Neut # (Auto) 4.2 Lymph # (Auto) 0.8 L [place] # (Auto) 0.4 Eos # (Auto) 0.0 Baso # (Auto) 0.0 Immature Gran # (Auto) 0.08 H Absolute Nucleated RBC 0.00 Immature Gran % 2 H Nucleated RBC % 0 Sodium 138 Potassium 4.2 Chloride 95 L Carbon Dioxide 39.7 H Anion Gap 3 L BUN 15 Creatinine 0.8 Estim Creat Clear Calc 116.7 eGFR > 60 BUN/Creatinine Ratio 19 Glucose 129 H Calculated Osmolality 278 Calcium 8.6 Corrected Calcium 8.8 Magnesium 2.3 Total Bilirubin 0.5 AST 11 ALT 15 Alkaline Phosphatase 41 L Total Protein 5.8 Albumin 3.7 Globulin 2.1 L Albumin/Globulin Ratio 1.8 ABG Interpretation ABG results: 09/15/24 09/15/24 09/15/24 13:00 18:10 18:32 ABG pH 7.21 L 7.43 D 7.47 H ABG pCO2 102 H* 71 H* D 64 H ABG pO2 401 H 49 L* D 57 L* ABG HCO3 41 H 47 H 47 H ABG O2 Saturation 96 86 L 90 L ABG Base Excess 9 H 19 H 19 H 09/15/24 09/16/24 22:37 04:45 ABG pH 7.42 7.43 ABG pCO2 71 H* 70 H ABG pO2 76 L 80 L ABG HCO3 46 H 47 H ABG O2 Saturation 93 93 ABG Base Excess 18 H 19 H Quality Measures Quality Measures none Assessment & Plan Assessment Current Active Medications: Generic Name Dose Route Start Last Admin Trade Name Freq PRN Reason Stop Dose Admin Acetaminophen 650 mg 09/15/24 15:22 Acetaminophen 325 Mg Tablet PO 10/15/24 14:30 Q4HR PRN Pain Scale 1-3 or fever >99.0 Albuterol/Ipratropium 3 ml 09/18/24 11:00 09/18/24 11:36 Albuterol/Ipratropium (Duoneb) Rt Marita 3 Ml Nebu INH 10/18/24 10:59 3 ml Q4HRRT FREDIS Administration Azithromycin 250 mg 09/18/24 09:00 09/18/24 08:48 Azithromycin 250 Mg Tablet PO 09/23/24 08:59 250 mg QDAY FREDIS Administration Enoxaparin Sodium 40 mg 09/16/24 09:00 09/17/24 09:30 Enoxaparin Sod Inj 40 Mg/0.4 Ml Syringe SC 09/30/24 08:59 40 mg QDAY FREDIS Administration Guaifenesin 600 mg 09/18/24 10:30 09/18/24 10:46 Guaifenesin Er 600 Mg Tabcr PO 10/18/24 10:29 600 mg BID FREDIS Administration Piperacillin/Tazobactam/Dextrose 50 mls @ 12.5 mls/hr 09/15/24 22:00 09/18/24 05:22 Zosyn IV 09/22/24 21:59 12.5 mls/hr Q8HR FREDIS Administration Methylprednisolone Sodium Succinate 40 mg 09/18/24 21:00 Methylprednisolone Sod Succ 40 Mg Vial IVP 09/25/24 20:59 Q12HR FREDIS Ondansetron HCl 4 mg 09/15/24 14:31 Ondansetron Inj 2 Mg/Ml Inj 2 Ml IV 10/15/24 14:30 Q8HR PRN NAUSEA OR VOMITING Sodium Chloride 3 ml 09/16/24 07:33 09/17/24 15:51 Sodium Chloride Rt Marita 0.9% 3 Ml Nebu INH 10/16/24 07:32 3 ml PRN PRN Administration TO MIX WITH ALBUTEROL Vitamin B Complex/Vit C/Folic Acid 1 tab 09/17/24 15:00 09/18/24 08:48 Vit B12/Vit C/Fa (Nephrovite) Tablet PO 10/17/24 14:59 1 tab QDAY FREDIS Administration Plan Assessment and Plan: Summary: Mr. Lowe is a 64-year-old male with a previous medical history of COPD, hypertension, hyperlipidemia, substance abuse, A-fib and seizures who was brought in via EMS after he was found slumped in his chair with no pulse and breathing, firefighters initiated CPR, ROSC upon EMS arrival. Patient admitted to the ICU for acute hypoxic respiratory failure and post possible respiratory arrest management. Patient was found to have left lung pneumonia and COPD exacerbation. #Acute hypoxic hypercapnic respiratory failure, resolving #COPD exacerbation #Left lung pneumonia Patient has history of COPD and was found unresponsive at home with no breathing. ABGs showed respiratory acidosis. Chest X-Ray showed left lung pneumonia, suspicion of aspiration pneumonia Patient is on 4 L baseline via nasal cannula Patient was admitted to ICU status postintubation because of respiratory failure, patient condition improved and was downgraded to floors. Blood cultures negative after 48 hours, sputum ET culture negative, MRSA nasal screen negative Plan: -Continue Zosyn (09/15- -continue Azithromycin (09/15- -started on methylprednisolone 40 mg twice daily -Started on DuoNeb treatments every 4 hours -Supplemental oxygen as needed -Titrate oxygen to baseline as patient tolerates, baseline oxygen 4 L -Aspiration precautions #Bilateral avascular necrosis of femur head CT abdomen pelvis shows concern of avascular necrosis of left femur head Patient does complain of some pain in the left hip on and off 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 Plan: -Consulted orthopedics, recommended outpatient follow-up -Will continue to monitor patient -Referred to physical therapy #HFpEF (EF 55 to 60%) #Diastolic heart failure Patient reports he was diagnosed with heart failure at [facility]. ECHO dated 09/07/2024 shows normal LV size and function, estimated EF 55 to 60%, stage I diastolic dysfunction, mild RV and RA dilation, normal RV function. Trace TR. Currently patient does not look fluid overloaded, patient is on furosemide 40 mg p.o. daily at home Plan: -Will consider resuming Lasix if patient exhibits signs of fluid overload. -Avoid cardiotoxic agents -Strict intake and output #Mild Macrocytic anemia 09/08 B12 level 204, decreased. Plan: -Started on oral vitamin B12 -Monitor CBC in a.m. #Atrial fibrillation Patient is rate controlled [id number] score 2 Patient is on Eliquis 5 mg twice daily at home, was last prescribed in February, will check with patient. Patient is currently on Lovenox for DVT prophylaxis #Chronic venous stasis dermatitis #History of hypertension #History of seizures -Patient denies history of any seizures -Patient is not on any antihypertensives at home -Pending med rec DVT prophylaxis: Lovenox GI prophylaxis: Not indicated Diet: Cardiac diet Lines: Peripheral IV Code status: Full code Case discussed with Attending Dr. Siddiqui and Dr. Parmar PGY3. Matteo Patel PGY1
--- NOTE | 2024-09-18 13:24 | PD.ADDPROG ---
Addendum Progress Note Addendum Date of report being addended: 09/18/24 Narrative: Face to face evaluation was performed by me. I have personally seen and examined the patient. I discussed the assessment and plan with the entire medicine team. I reviewed available medical records, imaging studies, laboratory results. I agree with the above subjective data, objective findings, assessment and plan except as corrected by me or noted below Face to face evaluation was performed by me. I have personally seen and examined the patient. I discussed the assessment and plan with the entire medicine team. I reviewed available medical records, imaging studies, laboratory results. I agree with the above subjective data, objective findings, assessment and plan except as corrected by me or noted below Acute hypoxic and hypercapnic respiratory failure COPD with acute exacerbation Bacterial pneumonia right lung Chronic diastolic heart failure, does not seem to be in exacerbation at this point History of seizures Chronic venous status dermatitis Left femoral AVN on CT scan -Continue supplemental oxygenation, plan to wean off as able continue systemic steroids increased to twice daily instead of daily -Increase breathing treatment frequency admission X orthopedic surgery consultation, looks like recommend outpatient follow-up for his AVN bilaterally Therapy discharge planning- - - - DVT prophylaxis with Lovenox
[2024-09-19] VITALS (16 sets, daily range): BP systolic 100–136; BP diastolic 54–72; PULSE 63–95; RESP 18–22; TEMP 36.4–36.8; O2SAT 92–99
[2024-09-19] MEDS: ALBUTEROL/IPRATROPIUM (Duoneb) RT SOL 3 ML NEBU INH ×6 (02:32→23:07)
[2024-09-19] MEDS: PIPER/TAZO 3.375 GM 50 ML IV ×3 (05:20→21:26)
[2024-09-19 06:03] LABS: Basophils % (Auto) 0 % (0-2.5); Eosinophils % (Auto) 0 % (0-10); Hematocrit 38.3 % (41.0-53.0); Hemoglobin 11.8 g/dL (13.5-16.0); Immature Granulocytes % (Auto) 1 % (0-0); Immature Granulocytes Auto 0.09 Thou/mm3 (0.00-0.00); Lymphocytes # (Auto) 0.3 Thou/mm3 (1.0-4.8); Lymphocytes % (Auto) 3 % (10-50); Mean Corpuscular HGB Conc 30.8 g/dl (31.0-37.0); Mean Corpuscular Volume 101 fL (80-100); Monocytes # (Auto) 0.1 Thou/mm3 (0.0-0.8); Monocytes % (Auto) 1 % (0-12); Neutrophils # (Auto) 9.4 Thou/mm3 (1.8-7.7); Neutrophils % (Auto) 94 % (37-80); Nucleated Red Blood Cell % 0 /100 WBC (0); Platelet Count 157 Thou/mm3 (140-440); RDW Standard Deviation 57.8 fL (35.1-43.9); Red Blood Count 3.81 Miln/mm3 (4.50-5.90)
[2024-09-19 06:26] LABS: Alanine Aminotransferase 13 U/L (10-49); Albumin, Serum 3.8 gm/dL (3.4-4.8); Albumin/Globulin Ratio 1.7 (1.2-2.2); Alkaline Phosphatase 47 U/L (46-116); Anion Gap 4 (7-16); Aspartate Amino Transferase 11 U/L (0-34); BUN/Creatinine Ratio 27 Ratio (12-20); Bilirubin,Total 0.4 mg/dL (0.3-1.2); Blood Urea Nitrogen 19 mg/dL (9-23); Calcium 8.8 mg/dL (8.3-10.6); Carbon Dioxide 36.4 mMol/L (20.0-31.0); Chloride 94 mMol/L (98-107); Creatinine (Component) 0.7 mg/dL (0.6-1.3); Estimated Creatinine Clearance 133.7 mL/min (>60); Globulin 2.2 gm/dL (2.3-3.5); Glucose 189 mg/dL (74-106); Magnesium 2.2 mg/dL (1.6-2.6); Osmolality,Calculated 275 (275-295); Potassium 4.6 mMol/L (3.4-5.1); Sodium 134 mMol/L (136-145); eGFR > 60 See Note
[2024-09-19] MEDS: guaiFENesin ER 600 MG TABCR PO ×2 (08:34→21:26)
[2024-09-19] MEDS: VIT B12/Vit C/FA (Nephrovite) TABLET 1 TAB PO (08:34)
[2024-09-19] MEDS: AZITHROMYCIN 250 MG TABLET PO (08:34)
[2024-09-19] MEDS: ENOXAPARIN SOD INJ 40 MG/0.4 ML SYRINGE SC (08:34)
--- NOTE | 2024-09-19 09:12 | PC.SS ---
Follow up note: Wean down O2. Pt is currently on 4 liters of O2. If pt return home physicians are recommending a Trilogy Machine. Pt is on IV steroids.
--- NOTE | 2024-09-19 11:18 | PC.SS ---
SS met with pt who explained he has O2 tanks at home but nobody is home to bring O2 tank to hospital. Pt states he usually goes home using [employer]. SS has called [facility] who explained they will bring O2 tank to hospital.
--- NOTE | 2024-09-19 12:51 | PC.SS ---
Trilogy Machine Patient needs mechanical ventilator due to Chronic Respiratory Failure due to Severe COPD. Patient needs to keep tidal volume and prevent CO2 retention. Ventilator is required to improve pulmonary status. Without this respiratory support in the home it could lead to serious harm or . Tried and failed CPAP therapy.
--- NOTE | 2024-09-19 12:57 | PC.SS ---
SS has sent DME for Trilogy Machine to [facility] due to pt being established with them.
--- NOTE | 2024-09-19 16:08 | PD.RESPRO ---
Documentation for date of: 09/19/24 Subjective Subjective Interval history: Overnight events, lab/imaging results, and notes reviewed. Patient examined bedside, reports feeling well without complains. Oxygen saturations are ~93% on 4L, which is noted to be patient's home oxygen requirements. Patient has expressed interest in pursuing Trilogy BiPAP, does endorse he had difficulty complying with CPAP due to the uncomfortable nature of wearing the CPAP mask. Case management team aware, currently waiting for Trilogy BiPAP machine to be authorized/delivered to patient's home. Will stop IV steroids today and begin PO prednisone tomorrow 40mg qday. Will add BiPAP nightly while patient remains hospitalized. Exam Vital Signs Temp Pulse Resp BP Pulse Ox O2 Del Method O2 Flow Rate 97.7 F 81 20 136/72 H 98 Nasal Cannula 4 09/19/24 11:44 09/19/24 14:12 09/19/24 14:12 09/19/24 11:44 09/19/24 14:12 09/19/24 11:44 09/19/24 14:12 FiO2 74 09/19/24 11:44 Narrative Exam General: AOx3, cooperative, in no acute distress HEENT: Atraumatic/normocephalic, [place], neck supple without masses Heart: RRR, S1 and S2 without clicks or murmurs Lungs: Clear on auscultation bilaterally, no difficulty breathing, on 4L NC Abdomen: Soft, nontender. Bowel sounds present on all quadrants, no organomegaly Neuro: No focal neurological deficits noted Objective Labs 09/19/24 04:53 09/19/24 04:53 Labs: Laboratory Results - last 24 hr 09/19/24 04:53 WBC 10.0 D RBC 3.81 L Hgb 11.8 L Hct 38.3 L MCV 101 H MCH 31.0 MCHC 30.8 L RDW Std Deviation 57.8 H Plt Count 157 Neut % (Auto) 94 H Lymph % (Auto) 3 L [place] % (Auto) 1 Eos % (Auto) 0 Baso % (Auto) 0 Neut # (Auto) 9.4 H Lymph # (Auto) 0.3 L [place] # (Auto) 0.1 Eos # (Auto) 0.0 Baso # (Auto) 0.0 Immature Gran # (Auto) 0.09 H Absolute Nucleated RBC 0.00 Immature Gran % 1 H Nucleated RBC % 0 Sodium 134 L Potassium 4.6 Chloride 94 L Carbon Dioxide 36.4 H Anion Gap 4 L BUN 19 Creatinine 0.7 Estim Creat Clear Calc 133.7 eGFR > 60 BUN/Creatinine Ratio 27 H Glucose 189 H D Calculated Osmolality 275 Calcium 8.8 Corrected Calcium 9.0 Magnesium 2.2 Total Bilirubin 0.4 AST 11 ALT 13 Alkaline Phosphatase 47 Total Protein 6.0 Albumin 3.8 Globulin 2.2 L Albumin/Globulin Ratio 1.7 ABG Interpretation ABG results: 09/15/24 09/15/24 09/15/24 13:00 18:10 18:32 ABG pH 7.21 L 7.43 D 7.47 H ABG pCO2 102 H* 71 H* D 64 H ABG pO2 401 H 49 L* D 57 L* ABG HCO3 41 H 47 H 47 H ABG O2 Saturation 96 86 L 90 L ABG Base Excess 9 H 19 H 19 H 09/15/24 09/16/24 22:37 04:45 ABG pH 7.42 7.43 ABG pCO2 71 H* 70 H ABG pO2 76 L 80 L ABG HCO3 46 H 47 H ABG O2 Saturation 93 93 ABG Base Excess 18 H 19 H Quality Measures Quality Measures VTE prophylaxis (Lovenox) Assessment & Plan Assessment Current Active Medications: Generic Name Dose Route Start Last Admin Trade Name Freq PRN Reason Stop Dose Admin Acetaminophen 650 mg 09/15/24 15:22 Acetaminophen 325 Mg Tablet PO 10/15/24 14:30 Q4HR PRN Pain Scale 1-3 or fever >99.0 Albuterol/Ipratropium 3 ml 09/18/24 11:00 09/19/24 14:10 Albuterol/Ipratropium (Duoneb) Rt Marita 3 Ml Nebu INH 10/18/24 10:59 3 ml Q4HRRT FREDIS Administration Azithromycin 250 mg 09/18/24 09:00 09/19/24 08:34 Azithromycin 250 Mg Tablet PO 09/23/24 08:59 250 mg QDAY FREDIS Administration Enoxaparin Sodium 40 mg 09/16/24 09:00 09/19/24 08:34 Enoxaparin Sod Inj 40 Mg/0.4 Ml Syringe SC 09/30/24 08:59 40 mg QDAY FREDIS Administration Guaifenesin 600 mg 09/18/24 10:30 09/19/24 08:34 Guaifenesin Er 600 Mg Tabcr PO 10/18/24 10:29 600 mg BID FREDIS Administration Piperacillin/Tazobactam/Dextrose 50 mls @ 12.5 mls/hr 09/15/24 22:00 09/19/24 14:34 Zosyn IV 09/22/24 21:59 12.5 mls/hr Q8HR FREDIS Administration Methylprednisolone Sodium Succinate 40 mg 09/18/24 21:00 09/19/24 08:34 Methylprednisolone Sod Succ 40 Mg Vial IVP 09/25/24 20:59 40 mg Q12HR FREDIS Administration Ondansetron HCl 4 mg 09/15/24 14:31 Ondansetron Inj 2 Mg/Ml Inj 2 Ml IV 10/15/24 14:30 Q8HR PRN NAUSEA OR VOMITING Sodium Chloride 3 ml 09/16/24 07:33 09/17/24 15:51 Sodium Chloride Rt Marita 0.9% 3 Ml Nebu INH 10/16/24 07:32 3 ml PRN PRN Administration TO MIX WITH ALBUTEROL Vitamin B Complex/Vit C/Folic Acid 1 tab 09/17/24 15:00 09/19/24 08:34 Vit B12/Vit C/Fa (Nephrovite) Tablet PO 10/17/24 14:59 1 tab QDAY FREDIS Administration Plan Mr. Lowe is a 64-year-old male with a previous medical history of COPD (on 4L home oxygen), hypertension, hyperlipidemia, substance abuse, A-fib and seizures who was brought in via EMS after he was found slumped in his chair with no pulse and breathing, firefighters initiated CPR, ROSC upon EMS arrival. Patient admitted to the ICU for acute hypoxic respiratory failure and post possible respiratory arrest management. Patient was found to have left lung pneumonia and COPD exacerbation. #Acute hypoxic hypercapnic respiratory failure, resolving #COPD exacerbation #Left lung pneumonia Patient has history of COPD and was found unresponsive at home with no breathing. ABGs showed respiratory acidosis. Chest X-Ray showed left lung pneumonia, suspicion of aspiration pneumonia Patient is on 4 L baseline via nasal cannula Patient was admitted to ICU status postintubation because of respiratory failure, patient condition improved and was downgraded to floors. Blood cultures negative after 48 hours, sputum ET culture negative, MRSA nasal screen negative Plan: -Continue Zosyn (09/15- -continue Azithromycin (09/15- -started on methylprednisolone 40 mg twice daily to stop 09/19 -Start PO prednisone 40mg qday on 09/20 -Started on DuoNeb treatments every 4 hours -Supplemental oxygen as needed -Titrate oxygen to baseline as patient tolerates, baseline oxygen 4 L -Aspiration precautions #Bilateral avascular necrosis of femur head CT abdomen pelvis shows concern of avascular necrosis of left femur head Patient does complain of some pain in the left hip on and off 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 Plan: -Consulted orthopedic surgeon Dr. Wong, advises outpatient orthopedic surgery follow up -Will continue to monitor patient -Referred to physical therapy #HFpEF (EF 55 to 60%) #Diastolic heart failure Patient reports he was diagnosed with heart failure at [facility]. ECHO dated 09/07/2024 shows normal LV size and function, estimated EF 55 to 60%, stage I diastolic dysfunction, mild RV and RA dilation, normal RV function. Trace TR. Currently patient does not look fluid overloaded, patient is on furosemide 40 mg p.o. daily at home Plan: -Will consider resuming Lasix if patient exhibits signs of fluid overload. -Avoid cardiotoxic agents -Strict intake and output #Mild Macrocytic anemia 09/08 B12 level 204, decreased. Plan: -Started on oral vitamin B12 -Monitor CBC in a.m. #History of Atrial fibrillation Patient is rate controlled [id number] score 2 Patient is on Eliquis 5 mg twice daily at home, was last prescribed in February 2024. After discussion with patient, he is no longer interested in continuing Eliquis. Risks/benefits of anticoagulation were discussed, patient defers eliquis at this time and states he will follow up with PCP regarding resuming anticoagulation Patient is currently on Lovenox for DVT prophylaxis #Chronic venous stasis dermatitis #History of hypertension #History of seizures -Patient denies history of any seizures -Patient is not on any antihypertensives at home -Pending med rec DVT prophylaxis: Lovenox GI prophylaxis: Not indicated Diet: Cardiac diet Lines: Peripheral IV Code status: Full code Dispo: Pending Trilogy BiPAP machine authorization/home delivery. On IV steroids today. Patient case discussed with attending physician Dr. Yasmani Parmar, DO PGY-3 Attending Provider Attestation/Addendum I have discussed and was present for the essential components of the history, physical examination, diagnosis, and treatment plan with the resident. I agree with the patient's care as documented by the resident and amended herein by me. Herman Gruber DO. Patient seen and evaluated this AM. Vital signs stable, patient afebrile overnight, presently on 4 L via nasal cannula, SpO2 93%. Patient normally on 4 L home O2. Patient pending trilogy machine for discharge, can be discharged on a course of p.o. prednisone to finish full 5-day course, will also be discharged on a course of oral antibiotics for pneumonia. Possible discharge on 09/20 Although this document has been carefully reviewed, there may still be some phonetic and other typographical errors. These errors are purely grammatical due to imperfections in the software program and should not be construed in any way to compromise the substance of the patient's medical care during this visit.
[2024-09-20] VITALS (15 sets, daily range): BP systolic 111–137; BP diastolic 56–80; PULSE 59–94; RESP 14–23; TEMP 36.2–36.6; O2SAT 92–99
[2024-09-20] MEDS: ALBUTEROL/IPRATROPIUM (Duoneb) RT SOL 3 ML NEBU INH ×6 (02:16→22:42)
[2024-09-20] MEDS: PIPER/TAZO 3.375 GM 50 ML IV ×3 (05:07→21:13)
[2024-09-20 05:35] LABS: Basophils % (Auto) 0 % (0-2.5); Eosinophils % (Auto) 0 % (0-10); Hematocrit 41.6 % (41.0-53.0); Hemoglobin 12.6 g/dL (13.5-16.0); Immature Granulocytes % (Auto) 1 % (0-0); Immature Granulocytes Auto 0.09 Thou/mm3 (0.00-0.00); Lymphocytes # (Auto) 1.2 Thou/mm3 (1.0-4.8); Lymphocytes % (Auto) 15 % (10-50); Mean Corpuscular HGB Conc 30.3 g/dl (31.0-37.0); Mean Corpuscular Hemoglobin 30.9 pg (25.0-35.0); Mean Corpuscular Volume 102 fL (80-100); Monocytes # (Auto) 0.4 Thou/mm3 (0.0-0.8); Monocytes % (Auto) 5 % (0-12); Neutrophils # (Auto) 6.3 Thou/mm3 (1.8-7.7); Neutrophils % (Auto) 78 % (37-80); Nucleated Red Blood Cell % 0 /100 WBC (0); Platelet Count 134 Thou/mm3 (140-440); RDW Standard Deviation 58.6 fL (35.1-43.9); Red Blood Count 4.08 Miln/mm3 (4.50-5.90)
[2024-09-20 06:37] LABS: Alanine Aminotransferase 14 U/L (10-49); Albumin, Serum 4.2 gm/dL (3.4-4.8); Albumin/Globulin Ratio 1.8 (1.2-2.2); Alkaline Phosphatase 50 U/L (46-116); Anion Gap 5 (7-16); Aspartate Amino Transferase 10 U/L (0-34); BUN/Creatinine Ratio 28 Ratio (12-20); Bilirubin,Total 0.4 mg/dL (0.3-1.2); Blood Urea Nitrogen 22 mg/dL (9-23); Calcium 9.4 mg/dL (8.3-10.6); Calcium (Corrected) 9.4 mg/dL (8.5-10.1); Carbon Dioxide 36.6 mMol/L (20.0-31.0); Chloride 94 mMol/L (98-107); Creatinine (Component) 0.8 mg/dL (0.6-1.3); Estimated Creatinine Clearance 118.5 mL/min (>60); Globulin 2.4 gm/dL (2.3-3.5); Glucose 101 mg/dL (74-106); Osmolality,Calculated 275 (275-295); Potassium 4.4 mMol/L (3.4-5.1); Sodium 136 mMol/L (136-145); Total Protein 6.6 gm/dL (5.7-8.2); eGFR > 60 See Note
[2024-09-20] MEDS: predniSONE 20 MG TABLET 40 MG PO (08:19)
[2024-09-20] MEDS: guaiFENesin ER 600 MG TABCR PO ×2 (08:21→21:13)
[2024-09-20] MEDS: AZITHROMYCIN 250 MG TABLET PO (08:21)
[2024-09-20] MEDS: ENOXAPARIN SOD INJ 40 MG/0.4 ML SYRINGE SC (08:21)
[2024-09-20] MEDS: VIT B12/Vit C/FA (Nephrovite) TABLET 1 TAB PO (08:21)
--- NOTE | 2024-09-20 10:38 | PC.SS ---
Marine Surveyor (HAILEY) Petty faxed trilog prescription and Medicare guidelines for necessity. SW spoke to Kelly from [facility] and all documentation was submitted. SW met with patient [id number] to discuss discharge plan. Patient reported that he will need assistance with transportation to return home.
--- NOTE | 2024-09-20 14:19 | PD.RESDS ---
Planned Discharge Date 09/20/24 DS: Providers Provider Date of admission: 09/15/24 14:31 Primary care physician: Nickolas Jones MD Admitting Provider: Dipesh Cano MD Attending Provider on Admission: Liza Hidalgo MD Consults: 09/17/24 10:18 Referral Physical Therapy Routine Comment: Physician Instructions: 09/18/24 07:49 Consult to Orthopedic Routine Comment: Bilateral Femur AVN Consulting Provider: Esdras Wong Attending Provider on DC: Preethi Shine MD Discharging Provider: Preethi Shine MD Hospital Course Hospital Course Hospital course: Overnight events, lab/imaging results, and notes reviewed. Patient examined bedside, reports feeling well without complains. Oxygen saturations are ~93% on 4L, which is noted to be patient's home oxygen requirements. Patient has expressed interest in pursuing Trilogy BiPAP, does endorse he had difficulty complying with CPAP due to the uncomfortable nature of wearing the CPAP mask. Case management team aware, currently waiting for Trilogy BiPAP machine to be authorized/delivered to patient's home. Will stop IV steroids today and begin PO prednisone tomorrow 40mg qday. Will add BiPAP nightly while patient remains hospitalized. Time Spent with Patient Time attestation: Total time spent providing and/or coordinating discharge services: Exam Vital Signs Temp Pulse Resp BP Pulse Ox O2 Del Method O2 Flow Rate 97.8 F 70 16 125/62 95 Nasal Cannula 4 09/20/24 10:49 09/20/24 12:00 09/20/24 10:49 09/20/24 10:49 09/20/24 10:49 09/20/24 10:49 09/20/24 10:49 FiO2 35 09/20/24 02:40 Discharge Plan Plan Patient Disposition: HOME (Self Care) Patient condition on transfer: Stable Care Plan Goals: Please take albuterol- budesonide inhaler for shortness of breath daily 2 puffs as needed once daily. Please take Tiotropium-olodaterol mist 2 puff inhaled once daily for shortness of breath exacerbations. Take doxycycline 100mg tablet twice daily for a total of 7 days and amoxicillin 500mg BID for a total of 7 days for COPD exacerbation. Please follow up with PCP in 1-2 weeks. If symptoms worsen, please return to the ED. Prescriptions/Referrals Prescriptions/Med Rec: New doxycycline hyclate 100 mg capsule 100 mg PO BID 7 Days Qty: 14 0RF tiotropium-olodaterol 2.5-2.5 mcg/actuation mist 2 puff inhalation QDAY Qty: 4 0RF amoxicillin 500 mg capsule 500 mg PO Q12H 7 Days Qty: 14 0RF albuterol sulfate 90 mcg/actuation aerosol powdr breath activated 2 inh inhalation Q6H PRN (Reason: shortness of breath or wheezing) Qty: 1 3RF Referrals: Nickolas Jones MD [Primary Care Provider] - Patient/Caregiver Discharge Instructions Education Materials: Chest Lung problems Surg Dx, COPD: Wheezing and Chest Tightness, Discharge Instructions: COPD, COPD: Using Inhalers, Diagnosing COPD, COPD: Lung Surgery Options Print Language: Surinamese Stand Alone Forms: [facility] Award Info., Patient Portal Info Letter Discharge Order Discharge Orders: Discharge (Routine); Ordered 09/20/24 Ordered By: Preethi Shine
--- NOTE | 2024-09-20 16:31 | ESPR_ITS ---
<Statement entered by Liza Hidalgo MD - 09/25/24 16:32> I reviewed above note and agree with findings and plans. I have also personally examined the patient with medicine team and went over assessment and plan with medical team including internal communications specialist and resident physician. <Statement entered by Amanda Parmar DO - 09/20/24 19:47> Senior attestation: Patient was examined and case was reviewed with team including attending physician. Note reviewed, I agree with most of its contents and agree with the patient's care. Pending Trilogy machine for discharge, case management team working with authorization. RT team was able to place BiPAP on patient overnight, patient reports tolerating BiPAP well and expresses interest in complying with Trilogy machine at home. Amanda Parmar DO PGY-3 Documentation for date of: 09/20/24 Subjective Subjective Interval history: Patient seen and observed at bedside. No overnight events. Labs ordered reviewed. Patient denies headache, fever, chills, chest pain, palpitation, dizziness, nausea, vomiting, diarrhea, or constipation. Endorses shortness of breath, with diffuse rhonchi in all lung lobes bilaterally. Hemodynamically stable this morning, saturating 96% on nasal cannula 4 L. Continue DuoNebs, azithromycin, prednisone, and IV Zosyn. Pending trilogy for discharge. Exam Vital Signs Temp Pulse Resp BP Pulse Ox O2 Del Method O2 Flow Rate 97.8 F 76 18 132/56 H 96 Nasal Cannula 4 09/20/24 16:00 09/20/24 16:00 09/20/24 16:00 09/20/24 16:00 09/20/24 16:00 09/20/24 16:00 09/20/24 16:00 FiO2 35 09/20/24 02:40 Narrative Exam Gen: Well-developed and well-nourished, disheveled, in no acute distress. HEENT: NCAT, PERRLA, EOMI, MMM, anicteric conjunctivae. CVS: normal S1 and S2. RRR. No M/R/G. Resp: Distant breathing sounds, b/l rhonchi all lung lobes. Abd: soft, non-tender, non-distended. BS+ in all 4 quadrants. MSK: Good ROM in BUE & BLE. Face has red macular squamous excoriations/eruptions appearing seborrheic dermatitis. Hyperpigmentation and woody appearance of lower extremities. Neuro: CN II-XII grossly intact. A&O x 3 Psych: appropriate mood and affect. Objective Labs 09/20/24 05:08 09/20/24 05:08 Labs: Laboratory Results - last 24 hr 09/20/24 05:08 WBC 8.0 RBC 4.08 L Hgb 12.6 L Hct 41.6 MCV 102 H MCH 30.9 MCHC 30.3 L RDW Std Deviation 58.6 H Plt Count 134 L Neut % (Auto) 78 Lymph % (Auto) 15 [place] % (Auto) 5 Eos % (Auto) 0 Baso % (Auto) 0 Neut # (Auto) 6.3 Lymph # (Auto) 1.2 [place] # (Auto) 0.4 Eos # (Auto) 0.0 Baso # (Auto) 0.0 Immature Gran # (Auto) 0.09 H Absolute Nucleated RBC 0.00 Immature Gran % 1 H Nucleated RBC % 0 Sodium 136 Potassium 4.4 Chloride 94 L Carbon Dioxide 36.6 H Anion Gap 5 L BUN 22 Creatinine 0.8 Estim Creat Clear Calc 118.5 eGFR > 60 BUN/Creatinine Ratio 28 H Glucose 101 D Calculated Osmolality 275 Calcium 9.4 Corrected Calcium 9.4 Total Bilirubin 0.4 AST 10 ALT 14 Alkaline Phosphatase 50 Total Protein 6.6 Albumin 4.2 Globulin 2.4 Albumin/Globulin Ratio 1.8 ABG Interpretation ABG results: 09/15/24 09/15/24 09/15/24 13:00 18:10 18:32 ABG pH 7.21 L 7.43 D 7.47 H ABG pCO2 102 H* 71 H* D 64 H ABG pO2 401 H 49 L* D 57 L* ABG HCO3 41 H 47 H 47 H ABG O2 Saturation 96 86 L 90 L ABG Base Excess 9 H 19 H 19 H 09/15/24 09/16/24 22:37 04:45 ABG pH 7.42 7.43 ABG pCO2 71 H* 70 H ABG pO2 76 L 80 L ABG HCO3 46 H 47 H ABG O2 Saturation 93 93 ABG Base Excess 18 H 19 H Quality Measures Quality Measures VTE prophylaxis (Lovenox) Assessment & Plan Assessment Current Active Medications: Generic Name Dose Route Start Last Admin Trade Name Freq PRN Reason Stop Dose Admin Acetaminophen 650 mg 09/15/24 15:22 Acetaminophen 325 Mg Tablet PO 10/15/24 14:30 Q4HR PRN Pain Scale 1-3 or fever >99.0 Albuterol/Ipratropium 3 ml 09/18/24 11:00 09/20/24 14:24 Albuterol/Ipratropium (Duoneb) Rt Marita 3 Ml Nebu INH 10/18/24 10:59 3 ml Q4HRRT FREDIS Administration Azithromycin 250 mg 09/18/24 09:00 09/20/24 08:21 Azithromycin 250 Mg Tablet PO 09/23/24 08:59 250 mg QDAY FREDIS Administration Enoxaparin Sodium 40 mg 09/16/24 09:00 09/20/24 08:21 Enoxaparin Sod Inj 40 Mg/0.4 Ml Syringe SC 09/30/24 08:59 40 mg QDAY FREDIS Administration Guaifenesin 600 mg 09/18/24 10:30 09/20/24 08:21 Guaifenesin Er 600 Mg Tabcr PO 10/18/24 10:29 600 mg BID FREDIS Administration Piperacillin/Tazobactam/Dextrose 50 mls @ 12.5 mls/hr 09/15/24 22:00 09/20/24 14:55 Zosyn IV 09/22/24 21:59 12.5 mls/hr Q8HR FREDIS Administration Ondansetron HCl 4 mg 09/15/24 14:31 Ondansetron Inj 2 Mg/Ml Inj 2 Ml IV 10/15/24 14:30 Q8HR PRN NAUSEA OR VOMITING Prednisone 40 mg 09/20/24 09:00 09/20/24 08:19 Prednisone 20 Mg Tablet PO 09/23/24 08:59 40 mg QDAY FREDIS Administration Sodium Chloride 3 ml 09/16/24 07:33 09/17/24 15:51 Sodium Chloride Rt Marita 0.9% 3 Ml Nebu INH 10/16/24 07:32 3 ml PRN PRN Administration TO MIX WITH ALBUTEROL Vitamin B Complex/Vit C/Folic Acid 1 tab 09/17/24 15:00 09/20/24 08:21 Vit B12/Vit C/Fa (Nephrovite) Tablet PO 10/17/24 14:59 1 tab QDAY FREDIS Administration Plan A calm 64-year-old male with a previous medical history of COPD (on 4L home oxygen), hypertension, hyperlipidemia, substance abuse, A-fib and seizures who was brought in via EMS after he was found slumped in his chair with no pulse and breathing, firefighters initiated CPR, ROSC upon EMS arrival. Patient admitted to the ICU for acute hypoxic respiratory failure and post possible respiratory arrest management. Patient was found to have left lung pneumonia and COPD exacerbation, requiring emergent intubation in the ICU. Currently on the hospital floors on prednisone, Zosyn, and azithromycin. #Acute hypoxic hypercapnic respiratory failure, resolving #COPD exacerbation #Left lung pneumonia Patient has history of COPD and was found unresponsive at home with no breathing. He required intubation for respiratory failure and was admitted to the ICU. ABGs showed respiratory acidosis. Chest X-Ray showed left lung pneumonia, suspicion of aspiration pneumonia. Upon extubation, patient was downgraded to the floors. Patient is now on 4 L baseline via nasal cannula. Blood cultures negative after 48 hours. Sputum ET culture negative, MRSA nasal screen negative. Started on methylprednisolone 40 mg twice daily to stopped on 09/19. Plan: -IV Zosyn (09/15- -continue Azithromycin (09/15- -PO prednisone 40mg qday on (09/20- -DuoNeb treatments every 4 hours -Aspiration precautions -Supplemental oxygen as needed -Will titrate as needed #Bilateral avascular necrosis of femur head Patient complained of intermittent pain in the left hip. 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 Suspect the patient may have patient AVN in setting of steroid use. Plan: -Consulted orthopedic surgeon Dr. Wong, advises outpatient orthopedic surgery follow up -Will continue to monitor patient -physical therapy on board -Follow-up outpatient #HFpEF (EF 55 to 60%) #Diastolic heart failure Patient reports he was diagnosed with heart failure at [facility]. ECHO dated 09/07/2024 shows normal LV size and function, estimated EF 55 to 60%, stage I diastolic dysfunction, mild RV and RA dilation, normal RV function. Trace TR. Patient appears euvolemic and therefore compensated. Patient is on furosemide 40 mg p.o. daily at home. Plan: -May resume Lasix if patient exhibits signs of fluid overload. -Avoid cardiotoxic agents -Strict intake and output #Mild Macrocytic anemia 09/08 B12 level 204, decreased. Plan: -Started on oral vitamin B12 -Monitor CBC in a.m. #History of Atrial fibrillation Patient is rate controlled [id number] score 2 Patient is on Eliquis 5 mg twice daily at home, was last prescribed in February 2024. After discussion with patient, he is no longer interested in continuing Eliquis. Risks/benefits of anticoagulation were discussed, patient defers eliquis at this time and states he will follow up with PCP regarding resuming anticoagulation Patient is currently on Lovenox for DVT prophylaxis #Chronic venous stasis dermatitis #History of hypertension #History of seizures -Patient denies history of any seizures -Patient is not on any antihypertensives at home -Pending med rec DVT prophylaxis: Lovenox GI prophylaxis: Not indicated Diet: Cardiac diet Lines: Peripheral IV Code status: Full code Dispo: Pending Trilogy BiPAP machine authorization/home delivery. On IV steroids today. Discussed case with my attending Dr. Hidalgo and senior Ghulam, PGY-3. Thank you, Preethi Shine, PGY-2
[2024-09-21] VITALS (11 sets, daily range): BP systolic 109–143; BP diastolic 61–76; PULSE 65–85; RESP 18–21; TEMP 36.6–36.9; O2SAT 91–98; BMI 32.1
[2024-09-21] MEDS: ALBUTEROL/IPRATROPIUM (Duoneb) RT SOL 3 ML NEBU INH ×3 (02:18→14:38)
[2024-09-21 05:45] LABS: Basophils % (Auto) 0 % (0-2.5); Eosinophils % (Auto) 0 % (0-10); Hemoglobin 12.1 g/dL (13.5-16.0); Immature Granulocytes % (Auto) 1 % (0-0); Immature Granulocytes Auto 0.08 Thou/mm3 (0.00-0.00); Lymphocytes % (Auto) 13 % (10-50); Mean Corpuscular HGB Conc 30.3 g/dl (31.0-37.0); Mean Corpuscular Hemoglobin 30.4 pg (25.0-35.0); Mean Corpuscular Volume 101 fL (80-100); Monocytes # (Auto) 0.5 Thou/mm3 (0.0-0.8); Monocytes % (Auto) 6 % (0-12); Neutrophils # (Auto) 6.3 Thou/mm3 (1.8-7.7); Neutrophils % (Auto) 80 % (37-80); Nucleated Red Blood Cell % 0 /100 WBC (0); Platelet Count 138 Thou/mm3 (140-440); RDW Standard Deviation 57.5 fL (35.1-43.9); Red Blood Count 3.98 Miln/mm3 (4.50-5.90); White Blood Count 7.9 Thou/mm3 (3.8-10.6)
[2024-09-21] MEDS: PIPER/TAZO 3.375 GM 50 ML IV ×2 (05:54→14:44)
[2024-09-21 06:40] LABS: Alanine Aminotransferase 16 U/L (10-49); Albumin, Serum 3.9 gm/dL (3.4-4.8); Albumin/Globulin Ratio 1.7 (1.2-2.2); Alkaline Phosphatase 44 U/L (46-116); Anion Gap 2 (7-16); BUN/Creatinine Ratio 26 Ratio (12-20); Bilirubin,Total 0.4 mg/dL (0.3-1.2); Blood Urea Nitrogen 23 mg/dL (9-23); Calcium 9.1 mg/dL (8.3-10.6); Calcium (Corrected) 9.2 mg/dL (8.5-10.1); Carbon Dioxide 39.4 mMol/L (20.0-31.0); Chloride 96 mMol/L (98-107); Creatinine (Component) 0.9 mg/dL (0.6-1.3); Estimated Creatinine Clearance 105.1 mL/min (>60); Globulin 2.3 gm/dL (2.3-3.5); Glucose 99 mg/dL (74-106); Osmolality,Calculated 277 (275-295); Potassium 4.1 mMol/L (3.4-5.1); Sodium 137 mMol/L (136-145); Total Protein 6.2 gm/dL (5.7-8.2); eGFR > 60 See Note
[2024-09-21 06:51] LABS: Aspartate Amino Transferase 10 U/L (0-34)
[2024-09-21] MEDS: ENOXAPARIN SOD INJ 40 MG/0.4 ML SYRINGE SC (08:11)
[2024-09-21] MEDS: predniSONE 20 MG TABLET 40 MG PO (08:12)
[2024-09-21] MEDS: VIT B12/Vit C/FA (Nephrovite) TABLET 1 TAB PO (08:12)
[2024-09-21] MEDS: AZITHROMYCIN 250 MG TABLET PO (08:13)
[2024-09-21] MEDS: guaiFENesin ER 600 MG TABCR PO (08:13)
[2024-09-21] MEDS: LIDOCAINE 5% 1 PATCH TOP ×2 (10:27→14:43)
--- NOTE | 2024-09-21 12:07 | PC.SS ---
Addendum entered by Petty Flor 09/21/24 16:21: EMS transportation is scheduled for 1929. Addendum entered by Petty Flor 09/21/24 15:21: HAILEY spoke to [place]in who reported that insurance authorization was obtained for trilogy. HAILEY met with patient, and he reported that he has access to his house and has two roommates. HAILEY contacted [facility] for insurance; however, [facility] no [facility] Per [employer], patient has no eligibility for transportation. HAILEY contacted [facility] for EMS transportation since patient requires oxygen to return home. Original Note: Steersman (HAILEY) Petty contacted [employer] and spoke to Irrigator who reported that trilogy is pending nurse review. In addition, the authorization can take 72 hours. Irrigator requested a call back on 09/23/24.
--- NOTE | 2024-09-21 15:52 | ESDS_ITS ---
<Statement entered by Liza Hidalgo MD - 09/25/24 16:33> I reviewed above note and agree with findings and plans. I have also personally examined the patient with medicine team and went over assessment and plan with medical team including news internship and resident physician. <Statement entered by Amanda Parmar DO - 09/21/24 19:38> Senior attestation: Patient was examined and case was reviewed with team including attending physician. Note reviewed, I agree with most of its contents and agree with the patient's care. Additional comments as follows: Patient advised to continue outpatient follow up with orthopedic surgery for further evaluation/management of bilateral femoral head avascular necrosis. Amanda Parmar DO PGY-3 Planned Discharge Date 09/21/24 DS: Providers Provider Date of admission: 09/15/24 14:31 Primary care physician: Nickolas Jones MD Admitting Provider: Dipesh Cano MD Attending Provider on Admission: Liza Hidalgo MD Consults: 09/17/24 10:18 Referral Physical Therapy Routine Comment: Physician Instructions: 09/18/24 07:49 Consult to Orthopedic Routine Comment: Bilateral Femur AVN Consulting Provider: Esdras Wong Attending Provider on DC: Preethi Shine MD Discharging Provider: Preethi Shine MD DS: Diagnosis Problem List Completed Was Problem List Reviewed/Reconciled?: Yes Hospital Course Hospital Course Hospital course: #Acute hypoxic hypercapnic respiratory failure, resolving #COPD exacerbation #Left lung pneumonia #Bilateral avascular necrosis of femur head #HFpEF (EF 55 to 60%) #Diastolic heart failure #Mild Macrocytic anemia #History of Atrial fibrillation #Chronic venous stasis dermatitis #History of hypertension #History of seizures 64-year-old male with a previous medical history of COPD (on 4L home oxygen), hypertension, hyperlipidemia, substance abuse, A-fib and seizures who was brought in via EMS after he was found down at home. EMS started CPR for respiratory arrest, it is unlikely that patient had cardiac arrest. Patient was subsequently brought to the ED where he was found to have a GCS of 3. Patient was found to have left lung pneumonia and COPD exacerbation, requiring emergent intubation in the ICU for respiratory failure and was admitted to the ICU for acute hypoxic respiratory failure. Patient was given prednisone, Zosyn, and azithromycin.ABGs showed respiratory acidosis. Chest X-Ray showed left lung pneumonia, suspicion of aspiration pneumonia. Upon extubation, patient was downgraded to the floors. Patient is now on 4 L baseline via nasal cannula.Blood cultures negative after 48 hours. Sputum ET culture negative, MRSA nasal screen negative.CT abdomen pelvis shows concern of avascular necrosis of left femur head. MRI positive for AVN bilateral femoral head. Suspect the patient may have patient AVN in setting of steroid use.Consulted orthopedic surgeon Dr. Wong, advises outpatient orthopedic surgery follow up. ECHO dated 09/07/2024 shows normal LV size and function, estimated EF 55 to 60%, stage I diastolic dysfunction, mild RV and RA dilation, normal RV function. Trace TR. Patient appears euvolemic and therefore compensated. [id number] score 2 After discussion with patient, he is no longer interested in continuing Eliquis. Risks/benefits of anticoagulation were discussed, patient defers eliquis at this time and states he will follow up with PCP regarding resuming anticoagulation. Patient is medically clear for discharge and is no longer feeling extreme s hortness of breath. Patient will take albuterol inhaler for shortness of breath daily 2 puffs as needed once daily. Patient will take Tiotropium-olodaterol mist 2 puff inhaled once daily for shortness of breath exacerbations along with Trelegy Ellipta daily for COPD. He will take doxycycline 100mg tablet twice daily for a total of 7 days and amoxicillin 500mg BID for a total of 7 days for COPD exacerbation. He will follow up with PCP in 1-2 weeks. If symptoms worsen, patient understands to return to the ED. Discussed case with my attending Dr. Hidalgo and Ghulam, PGY-3. Thank you, Preethi Shine, PGY-2 Time Spent with Patient Time attestation: Total time spent providing and/or coordinating discharge services: Time spent: Greater than 30 minutes Exam Vital Signs Temp Pulse Resp BP Pulse Ox O2 Del Method O2 Flow Rate 98.5 F 85 18 111/67 95 Nasal Cannula 4 09/21/24 12:00 09/21/24 14:39 09/21/24 14:39 09/21/24 12:00 09/21/24 14:39 09/21/24 12:00 09/21/24 14:39 FiO2 35 09/20/24 02:40 Narrative Exam Gen: Well-developed and well-nourished, disheveled, in no acute distress. HEENT: NCAT, PERRLA, EOMI. CVS: normal S1 and S2. RRR. No M/R/G. Resp: Distant breathing sounds, b/l rhonchi all lung lobes. Abd: soft, non-tender, mildly distended. BS++. MSK: Good ROM in BUE & BLE. Face has red macular squamous excoriations/eruptions appearing seborrheic dermatitis. Hyperpigmentation and woody appearance of lower extremities. Neuro: CN II-XII grossly intact. A&O x 3 Psych: appropriate mood and affect. Discharge Plan Plan Patient Disposition: HOME (Self Care) Patient condition on transfer: Stable Care Plan Goals: Please take albuterol inhaler for shortness of breath daily 2 puffs as needed once daily. Please take Tiotropium-olodaterol mist 2 puff inhaled once daily for shortness of breath exacerbations. Take doxycycline 100mg tablet twice daily for a total of 7 days and amoxicillin 500mg BID for a total of 7 days for COPD exacerbation. Please take Trelegy Ellipta for COPD. Please follow up with PCP in 1-2 weeks. If symptoms worsen, please return to the ED. Prescriptions/Referrals Prescriptions/Med Rec: New doxycycline hyclate 100 mg capsule 100 mg PO BID 7 Days Qty: 14 0RF tiotropium-olodaterol 2.5-2.5 mcg/actuation mist 2 puff inhalation QDAY Qty: 4 0RF amoxicillin 500 mg capsule 500 mg PO Q12H 7 Days Qty: 14 0RF albuterol sulfate 90 mcg/actuation aerosol powdr breath activated 2 inh inhalation Q6H PRN (Reason: shortness of breath or wheezing) Qty: 1 3RF Referrals: Nickolas Jones MD [Primary Care Provider] - Patient/Caregiver Discharge Instructions Education Materials: Chest Lung problems Surg Dx, COPD: Wheezing and Chest Tightness, Discharge Instructions: COPD, COPD: Using Inhalers, Diagnosing COPD, COPD: Lung Surgery Options Print Language: Slovak Stand Alone Forms: [facility] Award Info., Patient Portal Info Letter Discharge Order Discharge Orders: Discharge (Routine); Ordered 09/20/24 Ordered By: Preethi Shine Quality Discharge Quality Measures VTE prophylaxis
== END 2024-09-21 17:59 | disposition home or self-care (01) | DRG 208 ==
LOC: SERX 14:20 → SERHOLD 15:16 → S2SX 09-16 07:30 → S3NX 09-19 07:18 → S2SX 09-19 09:49 → SERHOLD 09-19 09:49
PROVIDERS: Student in an Organized Health Care Education/Training Program; Admitting Provider Internal Medicine Critical Care Medicine; Emergency Provider Emergency Medicine; PCP Family Medicine; Visit Provider Internal Medicine
DX: J96.21 Acute and chronic respiratory failure with hypoxia (principal); G93.41 Metabolic encephalopathy; J18.9 Pneumonia, unspecified organism; J44.1 Chronic obstructive pulmonary disease with (acute) exacerbation; I50.32 Chronic diastolic (congestive) heart failure; M87.852 Other osteonecrosis, left femur; M87.851 Other osteonecrosis, right femur; E87.29 Other acidosis; J44.0 Chronic obstructive pulmonary disease with (acute) lower respiratory infection; J96.22 Acute and chronic respiratory failure with hypercapnia; R56.9 Unspecified convulsions; I48.91 Unspecified atrial fibrillation; E78.5 Hyperlipidemia, unspecified; D53.9 Nutritional anemia, unspecified; I87.2 Venous insufficiency (chronic) (peripheral); I11.0 Hypertensive heart disease with heart failure; F40.240 Claustrophobia; Z79.899 Other long term (current) drug therapy; Z99.81 Dependence on supplemental oxygen
CPT/HCPCS: 36415; 36600; 70450; 71045; 71275; 73718; 74018; 74177; 80053; 80307; 80320; 81001; 82140; 82803; 83605; 83735; 83880; 84145; 84443; 84484; 85025; 85379; 85610; 85652; 85730; 86140; 87040; 87081; 87205; 87400; 87634; 87811; 93005; 93225; 94002; 94003; 94640; 94660; 94664; 96374; 97162; 99291; A4649; A9270; J0456; J0692; J0696; J1650; J2470; J2543; J2704; J2919; J3010; J3475; J3490; J7050; J7512; Q9967; G0480

== ENCOUNTER 2024-09-28 03:58 | Inpatient (IN) | payer MEDICARE, MEDICAID, SELFPAY ==
[2024-09-28] VITALS (18 sets, daily range): BP systolic 121–167; BP diastolic 62–86; PULSE 59–97; RESP 6–32; TEMP 36.1–36.9; O2SAT 88–97; BMI 32.8
--- NOTE | 2024-09-28 04:18 | XR_ITS ---
Examination: AP chest single view Technique one AP portable semiupright chest single view Exam date and time: September 28, 2024 0436 hrs. Comparison September 15, 2024 Indications: Shortness of breath chest pain today. Findings: Mild CHF Mild enlargement cardiac contour with prominent vascular congestion Early septal edema Small left pleural effusion Impression: Mild CHF
[2024-09-28] MEDS: ALBUTEROL/IPRATROPIUM (Duoneb) RT SOL 3 ML NEBU INH ×2 (04:34→12:56)
--- NOTE | 2024-09-28 04:37 | PC.NURSE ---
RT AT BEDSIDE PLACING PT ON BREATHING TX AT THIS TIME.
[2024-09-28] MEDS: MethylPREDNISolone SOD SUCC 62.5 MG/ML 2ML VIAL 125 MG IVP (04:49)
[2024-09-28 05:03] LABS: Basophils % (Auto) 0 % (0-2.5); Eosinophils % (Auto) 0 % (0-10); Hematocrit 42.1 % (41.0-53.0); Hemoglobin 12.4 g/dL (13.5-16.0); Immature Granulocytes % (Auto) 1 % (0-0); Immature Granulocytes Auto 0.08 Thou/mm3 (0.00-0.00); Lymphocytes # (Auto) 0.9 Thou/mm3 (1.0-4.8); Lymphocytes % (Auto) 12 % (10-50); Mean Corpuscular HGB Conc 29.5 g/dl (31.0-37.0); Mean Corpuscular Hemoglobin 30.7 pg (25.0-35.0); Mean Corpuscular Volume 104 fL (80-100); Monocytes # (Auto) 0.6 Thou/mm3 (0.0-0.8); Monocytes % (Auto) 8 % (0-12); Neutrophils # (Auto) 6.3 Thou/mm3 (1.8-7.7); Neutrophils % (Auto) 79 % (37-80); Nucleated Red Blood Cell % 0 /100 WBC (0); Platelet Count 106 Thou/mm3 (140-440); RDW Standard Deviation 56.8 fL (35.1-43.9); Red Blood Count 4.04 Miln/mm3 (4.50-5.90); White Blood Count 7.9 Thou/mm3 (3.8-10.6)
[2024-09-28] MEDS: FUROSEMIDE INJ 10 MG/ML 4ML VIAL 40 MG IVP ×3 (05:24→21:08)
[2024-09-28 05:29] LABS: Alanine Aminotransferase 20 U/L (10-49); Albumin, Serum 4.2 gm/dL (3.4-4.8); Albumin/Globulin Ratio 1.8 (1.2-2.2); Alkaline Phosphatase 65 U/L (46-116); Anion Gap 5 (7-16); Aspartate Amino Transferase 15 U/L (0-34); BUN/Creatinine Ratio 30 Ratio (12-20); Bilirubin,Total 0.5 mg/dL (0.3-1.2); Blood Urea Nitrogen 18 mg/dL (9-23); Calcium 9.2 mg/dL (8.3-10.6); Calcium (Corrected) 9.2 mg/dL (8.5-10.1); Carbon Dioxide > 40.0 mMol/L (20.0-31.0); Chloride 96 mMol/L (98-107); Creatinine (Component) 0.6 mg/dL (0.6-1.3); Estimated Creatinine Clearance 154.5 mL/min (>60); Globulin 2.3 gm/dL (2.3-3.5); Glucose 133 mg/dL (74-106); Lipase 22 U/L (12-53); Osmolality,Calculated 285 (275-295); Potassium 4.2 mMol/L (3.4-5.1); Sodium 141 mMol/L (136-145); Total Protein 6.5 gm/dL (5.7-8.2); eGFR > 60 See Note
[2024-09-28 05:34] LABS: Troponin I 0.054 ng/mL (0.0-0.045)
--- NOTE | 2024-09-28 05:42 | PD.EDRME ---
Rapid Medical Screening Exam RME Arrival date/time: 09/28/24 03:58 Chief Complaint: Weakness Time Seen by Provider: 09/28/24 05:42 Vital signs: Vital Signs Temperature 97.5 F 09/28/24 04:23 Pulse Rate 94 09/28/24 04:23 Respiratory Rate 22 H 09/28/24 04:23 Blood Pressure 147/74 H 09/28/24 04:23 Pulse Oximetry (%) 92 L 09/28/24 04:23 Oxygen Delivery Method Oxy Mask 09/28/24 04:23 Oxygen Flow Rate 5 09/28/24 04:23 RME Narrative: 64-year-old male with history of COPD and CHF coming in with wheezing.
[2024-09-28] MEDS: ASPIRIN EC 81 MG TABEC 324 MG PO (05:57)
[2024-09-28 06:09] LABS: B-Type Natriuretic Peptide 251 pg/mL (0-100)
[2024-09-28 06:41] LABS: Collection Type, Urine Clean Catch; Squamous Epithelial Cell,Urine 0 /hpf (0-5)
[2024-09-28 06:51] LABS: Bacteria,Urine Rare; Bilirubin,Urine Negative (Negative); Blood,Urine Negative (Negative); Clarity,Urine Clear (Clear/Hazy); Color,Urine Colorless (Lt Yel-Yel); Culture Indicated,Urine Not Indicated; Glucose, Urine Negative (Negative); Ketones,Urine Negative (Negative); Leukocyte Esterase,Urine Negative (Negative); Nitrite,Urine Negative (Negative); PH,Urine 6.5 (5.0-7.0); Protein,Urine Negative (Neg - Trace); RBC,Urine 1 /hpf (0-3); Specific Gravity,Urine 1.009 (1.001-1.035); Urobilinogen,Urine Negative mg/dL (0.0-1.0); WBC,Urine < 1 /hpf (0-5)
--- NOTE | 2024-09-28 07:57 | PD.EDSOB ---
ED SOB =RME/HPI General Chief Complaint: Weakness Stated Complaint: WEAKNESS Time Seen by Provider: 09/28/24 05:42 Arrival date/time: 09/28/24 03:58 Limitations: no limitations RME / HPI RME / HPI Narrative: 64 year old male with history of seizures, AFib, hypertension, COPD, hyperlipidemia, and recently admitted to the ICU here 09/15-09/21 for acute hypoxic respiratory failure and admission 09/07-09/11 for acute hypoxic hypercapnic respiratory failure presents to the ED BIBA for shortness of breath today. Per medics report, the call initially was for weakness however on their arrival noted to have difficulty breathing. Was given 0.8mg SL Nitro and 1 Nitro paste. On my encounter patient is sleeping, moderately difficult to arouse. When he does open his eyes he groans at me and goes back to sleep. Related Data Previous Rx's ?Medication ?Instructions ?Recorded albuterol sulfate 90 mcg/actuation 2 inh inhalation Q6H PRN shortness 09/20/24 breath activated powder inhaler of breath or wheezing #1 ea tiotropium 2.5 mcg-olodaterol 2.5 2 puff inhalation QDAY #4 grams 09/20/24 mcg/actuation mist for inhalation Allergies Allergy/AdvReac Type Severity Reaction Status Date / Time No Known Allergies Allergy Verified 09/15/24 12:27 Review of Systems Review of Systems ROS Unobtainable: unobtainable due to mental status Past Medical History Past Medical History NEUROLOGIC: Positive Seizures CARDIAC: Positive Cardiac Disorders, Atrial Fibrillation, Hypercholesterolemia, Congestive Heart Failure and Hypertension RESPIRATORY: Positive Chronic Obstructive Pulmonary Disease (COPD), Asthma and Pneumonia GASTROINTESTINAL: Positive Obesity PSYCHO/SOCIAL: Positive Recreational Drug Use and Anxiety Social History SMOKING STATUS: Current every day smoker ED Exam General Limitations: Present no limitations General appearance: Present other (Difficult to arouse however when awoken groans loudly, incomprehensible) Head Head exam: Present atraumatic, normocephalic and normal inspection Eye Eye exam: Present normal appearance, PERRL and EOMI ENT ENT exam: Present normal exam, normal oropharynx and mucous membranes moist Neck Neck exam: Present normal inspection, full ROM and trachea midline Chest Chest inspection: Present normal inspection and symmetric chest wall rise Respiratory Respiratory exam: Present other (Coarse rhonchi in all lung hein ) Cardiovascular Cardiovascular exam: Present regular rate, normal rhythm and normal heart sounds Abdominal Exam Abdominal exam: Present soft and normal bowel sounds Extremities Exam Extremities exam: Present normal inspection and full ROM Back Exam Back exam: Present normal inspection and full ROM Neurological Exam Neurological exam: Present other (Difficult to arouse however when awoken yells loudly ) Psychiatric Psychiatric exam: Present normal affect and normal mood Skin Skin exam: Present warm, dry, intact and normal color Course Course Course Narrative: chest xray ordered to help determine etiology of shortness of breath. Quality Measures none Orders Category Date Time Status Admit to Inpatient Status Routine Admission 09/28/24 13:48 Active Patient Condition Routine Admission 09/28/24 13:48 Ordered Bedside COVID-19 Antigen Test NOW Care 09/28/24 04:22 Active Bedside Influenza A&B Antigen Test NOW Care 09/28/24 04:22 Completed COVID-19 Screening Questionnaire NOW Care 09/28/24 12:26 Active Continuous Pulse Oximetry NOW Care 09/28/24 13:47 Completed EKG (ED ONLY) *Do not use* NOW Care 09/28/24 04:17 Completed Yoder [Urinary Catheter] QS Care 09/28/24 05:00 Active Insert IV NOW Care 09/28/24 04:22 Active Notify provider NEEDED Care 09/28/24 13:48 Active Obtain weight NOW Care 09/28/24 13:47 Active EKG (ED Only) Stat Exams 09/28/24 04:16 Ordered XR chest 1V portable Stat Exams 09/28/24 04:18 Completed ABG [Arterial Blood Gas] Stat Lab 09/28/24 08:15 Completed ABG [Arterial Blood Gas] Stat Lab 09/28/24 10:16 Completed ABG [Arterial Blood Gas] Stat Lab 09/28/24 12:47 Completed Alcohol, Blood Medical Stat Lab 09/28/24 04:50 Completed B-Type Natriuretic Peptide Stat Lab 09/28/24 04:50 Completed CBC AM DRAW Lab 09/29/24 05:38 Completed CBC AM DRAW Lab 09/30/24 05:00 Ordered CBC AM DRAW Lab 10/01/24 05:00 Ordered CBC Stat Lab 09/28/24 04:50 Completed Comprehensive Metabolic Panel AM DRAW Lab 09/29/24 05:38 Completed Comprehensive Metabolic Panel AM DRAW Lab 09/30/24 05:00 Ordered Comprehensive Metabolic Panel AM DRAW Lab 10/01/24 05:00 Ordered Comprehensive Metabolic Panel Stat Lab 09/28/24 04:50 Completed Lipase Stat Lab 09/28/24 04:50 Completed Lipid Panel Routine Lab 09/28/24 11:41 Completed Magnesium AM DRAW Lab 09/29/24 05:38 Completed Magnesium AM DRAW Lab 09/30/24 05:00 Ordered Magnesium AM DRAW Lab 10/01/24 05:00 Ordered Phosphorous AM DRAW Lab 09/29/24 05:38 Completed Phosphorous AM DRAW Lab 09/30/24 05:00 Ordered Phosphorous AM DRAW Lab 10/01/24 05:00 Ordered Troponin I Stat Lab 09/28/24 04:50 Completed Troponin I Stat Lab 09/28/24 11:41 Completed Urinalysis, C/S if Indicated Stat Lab 09/28/24 06:35 Completed Acetaminophen Tab [Tylenol Tab] Med 09/28/24 13:47 Active 650 mg PO Q6H PRN Acetaminophen Tab [Tylenol Tab] Med 09/28/24 13:47 Discontinued 650 mg PO Q6H PRN Albuterol/Ipratr Rt Marita [Duoneb Rt Marita] Med 09/28/24 04:21 Discontinued 3 ml INH X1 ONE Albuterol/Ipratr Rt Marita [Duoneb Rt Marita] Med 09/28/24 12:38 Discontinued 3 ml INH X1 ONE Aspirin [Ecotrin] Med 09/28/24 05:49 Discontinued 324 mg PO X1 ONE Furosemide Inj [Lasix Inj] Med 09/28/24 05:19 Discontinued 40 mg IVP X1 ONE Furosemide Inj [Lasix Inj] Med 09/28/24 12:26 Discontinued 40 mg IVP X1 ONE HYDROcodone*/APAP 5/325 [Irving 5/325] Med 09/28/24 13:47 Active 1 tab PO Q4HR PRN MethylPREDNISolone.* [SoluMEDROL Inj] Med 09/28/24 04:21 Discontinued 125 mg IVP X1 ONE Ondansetron Inj [Zofran Inj] Med 09/28/24 13:47 Active 4 mg IV Q6H PRN Pantoprazole Inj [Protonix Inj] Med 09/28/24 21:00 Active 40 mg IVP Q12HR Senna [Senokot] Med 09/28/24 13:47 Active 1 tab PO QDAY PRN Code Status Routine Oth 09/28/24 13:47 Ordered BiPAP / CPAP HS RT 09/28/24 08:23 Active Oxygen Delivery DAILY RT 09/28/24 13:48 Active Vital Signs Vital signs: Vital Signs Temperature 97.5 F 09/28/24 04:23 Pulse Rate 94 09/28/24 04:23 Respiratory Rate 22 H 09/28/24 04:23 Blood Pressure 147/74 H 09/28/24 04:23 Pulse Oximetry (%) 92 L 09/28/24 04:23 Oxygen Delivery Method Oxy Mask 09/28/24 04:23 Oxygen Flow Rate 5 09/28/24 04:23 Pulse ox is 92% on 5L Oxy Mask which is low. Shortness of Breath / Dyspnea MDM Narrative MDM Narrative:: Mr. Lowe was seen by me in the morning emergency department after aggressive respiratory treatment overnight including oxygen supplementation for respiratory distress. He has a history of COPD. By my exam in the morning 2 hours after respiratory treatment of high flow oxygen and he was difficult to arouse concerning for CO2 narcosis. Laboratory testing done via the RME process shows an elevated CO2 that is consistent with chronic retention. ABG was done which shows an acute respiratory retention as well with a pH of 7.2, a pCO2 of 102. He was started on BiPAP immediately, with intermittent nebulized bronchodilators. Repeat ABG shows improvement of his CO2 retention, he is more alert, and I feel is appropriate for further management and respiratory support some telemetry. I, Cherise Mccray, am scribing for and in the presence of Dr. Yousif. Patient data External records reviewed:: [facility] previous records (I reviewed admission from 09/15-09/21 for acute hypoxic respiratory failure and admission 09/07-09/11 for acute hypoxic hypercapnic respiratory failure) Clinical information provided by:: EMS Social determinants that could affect healthcare access:: none Patient has the following chronic illnesses:: seizures, AFib, hypertension, COPD, hyperlipidemia How is presenting disease/condition affected by chronic disease/condition?: exacerbated by Evaluation data The following diagnostics were reviewed and interpreted by me:: lab results and radiology exam(s) Lab and/or radiology exams considered but not ordered:: None Interpretation Summary: Ordering Physician: Karyna Su MD Date of Service: 09/28/24 Procedure(s): XR chest 1V portable Accession Number(s): [id number] Examination: AP chest single view Technique one AP portable semiupright chest single view Exam date and time: September 28, 2024 0436 hrs. Comparison September 15, 2024 Indications: Shortness of breath chest pain today. Findings: Mild CHF Mild enlargement cardiac contour with prominent vascular congestion Early septal edema Small left pleural effusion Impression: Mild CHF Dictated By:Thanh Kevin MD Signed By:<Electronically signed by Thanh Kevin MD in OV>09/28/24 0802 Medications / Prescriptions Medications or Prescriptions considered but not ordered:: None Medication administrations:: Medication Administration History Acetaminophen (Acetaminophen 325 Mg Tablet) 650 mg PO Q6H PRN PRN Reason: PAIN SCALE 1-3 (mild Stop: 10/28/24 13:46 Acetaminophen (Acetaminophen 325 Mg Tablet) 650 mg PO Q6H PRN PRN Reason: Fever >100.4 Stop: 10/28/24 13:46 Hydrocodone Bitart/Acetaminophen (Hydrocodone/Apap 5/325 Tablet) 1 tab PO Q4HR PRN PRN Reason: PAIN SCALE 4-6 (Moderate Stop: 10/03/24 13:46 Albuterol/Ipratropium (Albuterol/Ipratropium (Duoneb) Rt Marita 3 Ml Nebu) 3 ml INH Q6HRRT [facility] Stop: 10/28/24 18:59 Last Admin: 09/29/24 07:13 Dose: 3 ml Documented By: Admin: 09/29/24 01:49 Dose: 3 ml Documented By: Admin: 09/28/24 20:59 Dose: Not Given Documented By: BRODERICK Non-Admin Reason: Other, see note Comments: RT unaware of order Albuterol/Ipratropium (Albuterol/Ipratropium (Duoneb) Rt Marita 3 Ml Nebu) 3 ml INH Q2HR PRN PRN Reason: SHORTNESS OF BREATH OR WHEEZE Stop: 10/28/24 18:12 Azithromycin (Azithromycin 250 Mg Tablet) 500 mg PO QDAY@1400 [facility] Stop: 10/01/24 13:59 Furosemide (Furosemide Inj 10 Mg/Ml 4ml Vial) 40 mg IVP BID [facility] Stop: 10/28/24 20:59 Last Admin: 09/28/24 21:08 Dose: 40 mg Documented By: Guaifenesin (Guaifenesin/P-Ephed Tablet) 1 tab PO BID PRN PRN Reason: cough Stop: 10/28/24 20:59 Heparin Sodium (Porcine) (Heparin Sod Inj 5000 Unit/Ml Vial) 5,000 unit SC Q8HR FREDIS Stop: 10/12/24 21:59 Last Admin: 09/29/24 05:32 Dose: 5,000 unit Documented By: Co-signed By: RB Admin: 09/28/24 21:08 Dose: 5,000 unit Documented By: Co-signed By: ROSANA Methylprednisolone Sodium Succinate (Methylprednisolone Sod Succ 40 Mg Vial) 40 mg IVP DAILY [facility] Stop: 10/06/24 08:59 Nicotine (Nicotine Patch 14 Mg/24 Hr Patch.Td24) 14 mg TOP QDAY [facility] Stop: 10/28/24 16:14 Last Admin: 09/28/24 16:44 Dose: Not Given Documented By: RAHUL Non-Admin Reason: Patient Refused Ondansetron HCl (Ondansetron Inj 2 Mg/Ml Inj 2 Ml) 4 mg IV Q6H PRN; Protocol PRN Reason: NAUSEA OR VOMITING Stop: 10/28/24 13:46 Pantoprazole Sodium (Pantoprazole Inj 40 Mg Vial) 40 mg IVP Q12HR [facility] Stop: 10/28/24 20:59 Last Admin: 09/28/24 21:08 Dose: 40 mg Documented By: Sennosides (Senna Tablet) 1 tab PO QDAY PRN; Protocol PRN Reason: constipation Stop: 10/28/24 13:46 Vitamin B Complex/Vit C/Folic Acid (Vit B12/Vit C/Fa (Nephrovite) Tablet) 1 tab PO QDAY [facility] Stop: 10/29/24 08:59 Discontinued Medications Acetaminophen (Acetaminophen 325 Mg Tablet) 650 mg PO Q6H PRN PRN Reason: Fever >101.5 Stop: 10/28/24 13:46 Albuterol/Ipratropium (Albuterol/Ipratropium (Duoneb) Rt Marita 3 Ml Nebu) 3 ml INH X1 ONE Stop: 09/28/24 04:22 Last Admin: 09/28/24 04:34 Dose: 3 ml Documented By: DIGNA Albuterol/Ipratropium (Albuterol/Ipratropium (Duoneb) Rt Marita 3 Ml Nebu) 3 ml INH X1 ONE Stop: 09/28/24 12:39 Last Admin: 09/28/24 12:56 Dose: 3 ml Documented By: CRISTINA Aspirin (Aspirin Ec 81 Mg Tabec) 324 mg PO X1 ONE Stop: 09/28/24 05:50 Last Admin: 09/28/24 05:57 Dose: 324 mg Documented By: PIPPA Cyanocobalamin (Cyanocobalamin Inj 1,000 Mcg/Ml Vial) 1,000 mcg IM X1 ONE Stop: 09/28/24 16:09 Last Admin: 09/28/24 16:40 Dose: 1,000 mcg Documented By: RAHUL Furosemide (Furosemide Inj 10 Mg/Ml 4ml Vial) 40 mg IVP X1 ONE Stop: 09/28/24 05:20 Last Admin: 09/28/24 05:24 Dose: 40 mg Documented By: PIPPA Furosemide (Furosemide Inj 10 Mg/Ml 4ml Vial) 40 mg IVP X1 ONE Stop: 09/28/24 12:27 Last Admin: 09/28/24 13:54 Dose: 40 mg Documented By: ERNESTO Azithromycin 500 mg/ Sodium (Chloride) 250 mls @ 250 mls/hr IV X1 ONE Stop: 09/28/24 17:12 Last Admin: 09/28/24 17:36 Dose: 250 mls/hr Documented By: RAHUL Azithromycin 250 mg/ Sodium (Chloride) 250 mls @ 250 mls/hr IV QDAY FREDIS Stop: 10/06/24 08:59 Azithromycin 500 mg/ Sodium (Chloride) 250 mls @ 250 mls/hr IV QDAY FREDIS Stop: 10/01/24 08:59 Methylprednisolone Sodium Succinate (Methylprednisolone Sod Succ 62.5 Mg/Ml 2ml Vial) 125 mg IVP X1 ONE Stop: 09/28/24 04:22 Last Admin: 09/28/24 04:49 Dose: 125 mg Documented By: PIPPA See above Consultations Consultation(s) initiated? (list below): Yes Consultation #1 (Physician, Specialty, Details): 1120: I spoke with resident working with Dr. Cintron. Discussed patients PMHx, HPI, ED course, exam findings, labs, and radiology results. Will come evaluate the patient in the ED Diagnosis Shortness of Breath Differential Diagnosis: acute exacerbation of chronic obstructive airways disease, congestive heart failure and community acquired pneumonia Most likely diagnosis given after review of the tests above:: See below Admission Indicated Admission indicated?: indicated Admission Request Was there a request for admission?: Yes Admission Attestation Admission request attestation: Discussed case with [Dr. Cintron] from Hospitalist service regarding admission. Discussed patients ED course, exam findings, labs, and radiology results. The Hospitalist [agrees] to accept the patient for admission. Disposition Plan Disposition Plan: Admit Critical Care Time Critical Care Time Critical Care Time: Yes Total Critical Care Time (min.): 35 Attestation: Excluding billable procedures for the rep response, analysis, management, treatment, and documentation to vent the very possible risk of cardiopulmonary decompensation and/or . Discharge Plan Plan Patient Disposition: Admit Acute Care w/in Hospital Problem List Clinical Impression: Acute respiratory failure with hypoxia and hypercapnia, Acute respiratory acidosis, COPD (chronic obstructive pulmonary disease)
[2024-09-28 08:18] LABS: Base Excess 18 (-3-3); HCO3 49 mEq/L (20-26); Inspired O2, VO2 Liters 4 L/min; O2 Saturation 92 % (91-98); PCO2 102 mmHg (32.0-48.0); PO2 76 mmHg (83-108); pH, Arterial 7.29 (7.35-7.45)
[2024-09-28 08:19] LABS: Allen Test Performed/OK; Puncture Site Left Radial
[2024-09-28 09:12] LABS: Alcohol, Blood Medical < 3.0 mg/dL (0-10.0)
[2024-09-28 10:22] LABS: Base Excess 19 (-3-3); HCO3 49 mEq/L (20-26); Inspired Oxygen, FIO2 30 %; O2 Saturation 87 % (91-98); PCO2 82 mmHg (32.0-48.0); pH, Arterial 7.38 (7.35-7.45)
[2024-09-28 10:25] LABS: Allen Test Performed/OK; PO2 53 mmHg (83-108); Puncture Site Right Radial
[2024-09-28 12:10] LABS: Troponin I 0.073 ng/mL (0.0-0.045)
[2024-09-28 12:51] LABS: Base Excess 20 (-3-3); HCO3 48 mEq/L (20-26); Inspired Oxygen, FIO2 30 %; O2 Saturation 90 % (91-98); PCO2 75 mmHg (32.0-48.0); PO2 59 mmHg (83-108); pH, Arterial 7.42 (7.35-7.45)
[2024-09-28 12:53] LABS: Allen Test Performed/OK; Puncture Site Left Radial
--- NOTE | 2024-09-28 13:49 | PC.NURSE ---
Patent pulled off bipap mask, Rn redirected patient and placed bipap back on. Called RT as bipap alarms have continued to alarm
--- NOTE | 2024-09-28 13:53 | PC.CC ---
Frances RODRIGUEZ attempted to complete initial assessment with patient; however, patient is not alert and oriented. MICHAEL attempted to make telephone contact with patient's son on demographics Daniel Lowe and was unsuccessful as the phone went to voicemail. ASW left a voicemail.
--- NOTE | 2024-09-28 14:22 | ESHP_ITS ---
<Statement entered by Sam Bowers MD - 09/28/24 17:24> Mr. Lowe is a 64-year-old male with past medical history of atrial fibrillation (not on anticoagulation by choice), primary hypertension, COPD, HFrEF 55-60% who was admitted for acute hypoxic respiratory failure due to COPD exacerbation in the setting of acute decompensation of chronic diastolic heart failure. Patient is an active smoker. Chest x-ray showed vascular congestion consistent with CHF. ABG showed mild acidosis likely due to COPD. There was also mild troponin elevation, likely type II NSTEMI, and notable microcytic anemia. Plan: Patient started on oxygen with goal sats 88-92%, as needed BiPAP, DuoNebs, Solu-Medrol 40 mg daily, IV azithromycin, daily chest physio for COPD exacerbation. He is also on Lasix 40 mg twice daily with strict input output charting and fluid restriction to 1.5 L daily, for his CHF exacerbation. We will also supplement him for the macrocytic anemia. Patient examined and case discussed with the team including attending physician. Note reviewed, I agree with the care plan as documented. - Sam Bowers MD, PGY 2 Documentation for date of: 09/28/24 HPI History of Present Illness History of present illness: This is a 64-year-old male with PMHx of seizure, A-fib, HTN, COPD, HLD, HFpEF EF 55-60% 08/2024, recently discharged from ICU 09/15 - 09/21 for AHRF, and previous admission 09/07 - 09/09 with AHRF, brought in by ambulance for shortness of breath that started today. History is limited, patient on BiPAP with waxing and waning mentation. Per EMS, the call was initially for weakness however on their arrival patient was in difficulty breathing and was given 20 mg NITRO and 1 NITROPASTE. ED COURSE: Afebrile, BP 151/83, HR 62, RR 22, satting 92 on 50% FiO2, subsequently started on BiPAP 30% FiO2, was satting 89%. ABG showed pH 7.42, pCO2 75, PaO2 59, bicarb 48. CBC showed chronic macrocytic anemia with hemoglobin 12.4, near baseline and platelet 106, baseline 130s. Troponin 0.054 > 0.073, EKG pending UA negative for UTI, EtOH <3 CXR mild CHF, pulmonary vascular congestion, early septal edema, small left pleural effusion Patient admitted under hospitalist team for further management. Previously, patient was admitted to ICU after found unresponsive at home. He required CPR for respiratory arrest but was not in cardiac arrest. Upon arrival at the hospital, he had a GCS of 3, indicating severe respiratory distress. Diagnosed with left lung pneumonia and a COPD exacerbation, he required intubation and was admitted to the ICU for acute hypoxic respiratory failure. He was treated with PREDNISONE, ZOSYN, and azithromycin. After extubation, the patient improved and was downgraded to the general floor. His respiratory status stabilized, and he is now on 4L oxygen via nasal cannula. 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 An echocardiogram revealed normal LV function, mild RV and RA dilation, and stage I diastolic dysfunction. The patient chose not to continue ELIQUIS for anticoagulation therapy after discussing the risks and benefits, stated he will discuss ELIQUIS with PCP. PMHx: Seizure, A-fib, HTN, COPD, HLD, HFrEF EF 55-60% 08/2024 PSHx: None MEDS: Pending med rec's SH: Active smoker, alcohol Exam Vital Signs Temp Pulse Resp BP Pulse Ox O2 Del Method O2 Flow Rate 98.5 F 62 24 H 151/83 H 89 L BiPAP 4 09/28/24 11:27 09/28/24 13:54 09/28/24 12:58 09/28/24 13:54 09/28/24 12:58 09/28/24 11:27 09/28/24 07:58 FiO2 30 09/28/24 12:58 Narrative Exam GENERAL: Obese male, disheveled, on BiPAP HEENT: NCAT.?NATANAEL. Oral mucosa is moist. Patent Nares NECK: Supple, nontender, no thyromegaly, no meningismus, no JVD, no step offs CHEST: Symmetrical, atraumatic, and with equal expansion, Nontender on palpation no deformity and no crepitus. CARDIOVASCULAR: RRR, no m/g/r LUNGS: CTAB, no w/r/r. Symmetrical chest rise. No intercostal subcostal retraction. ABDOMEN: Soft, flat, nontender. No guarding/rebound tenderness/masses. +BS EXTREMITIES: Nontender.? Trace edema bilaterally. BL chronic stasis dermatitis SKIN: Warm and dry, no jaundice. Multiple diffuse skin abrasions throughout. MSK: No lumbar or midline, no CVA, no paraspinal muscle spasm or tenderness. Neuropsych: Drowsy, oriented x 3,?No focal neurologic deficits. Results: Labs 09/29/24 05:38 09/29/24 05:38 Labs: Short CBC 09/28/24 Range/Units 04:50 WBC 7.9 (3.8-10.6) Thou/mm3 Hgb 12.4 L (13.5-16.0) g/dL Hct 42.1 (41.0-53.0) % Plt Count 106 L D (140-440) Thou/mm3 BMP 09/28/24 04:50 Sodium 141 Potassium 4.2 Chloride 96 L Carbon Dioxide > 40.0 H BUN 18 Creatinine 0.6 Glucose 133 H Calcium 9.2 Cardiac Enzymes 09/28/24 09/28/24 Range/Units 04:50 11:41 Troponin I 0.054 H* 0.073 H* (0.0-0.045) ng/mL Liver Function 09/28/24 Range/Units 04:50 Total Bilirubin 0.5 (0.3-1.2) mg/dL AST 15 (0-34) U/L ALT 20 (10-49) U/L Alkaline Phosphatase 65 (46-116) U/L Albumin 4.2 (3.4-4.8) gm/dL Urine 09/28/24 Range/Units 06:35 Urine Color Colorless A (Lt Yel-Yel) Urine Clarity Clear (Clear/Hazy) Urine pH 6.5 (5.0-7.0) Ur Specific [place] 1.009 (1.001-1.035) Urine Protein Negative (Neg - Trace) Urine Glucose (UA) Negative (Negative) ABG Interpretation ABG results: 09/28/24 09/28/24 09/28/24 08:15 10:16 12:47 ABG pH 7.29 L 7.38 7.42 ABG pCO2 102 H* 82 H* D 75 H* ABG pO2 76 L 53 L* D 59 L* ABG HCO3 49 H 49 H 48 H ABG O2 Saturation 92 87 L 90 L ABG Base Excess 18 H 19 H 20 H Quality Measures Quality Measures VTE prophylaxis Medications Home Medications and Allergies Allergies Allergy/AdvReac Type Severity Reaction Status Date / Time No Known Allergies Allergy Verified 09/15/24 12:27 Visit Medications Acetaminophen (Acetaminophen 325 Mg Tablet) 650 mg PO Q6H PRN PRN Reason: Fever >101.5 Stop: 10/28/24 13:46 Acetaminophen (Acetaminophen 325 Mg Tablet) 650 mg PO Q6H PRN PRN Reason: PAIN SCALE 1-3 (mild Stop: 10/28/24 13:46 Hydrocodone Bitart/Acetaminophen (Hydrocodone/Apap 5/325 Tablet) 1 tab PO Q4HR PRN PRN Reason: PAIN SCALE 4-6 (Moderate Stop: 10/03/24 13:46 Ondansetron HCl (Ondansetron Inj 2 Mg/Ml Inj 2 Ml) 4 mg IV Q6H PRN; Protocol PRN Reason: NAUSEA OR VOMITING Stop: 10/28/24 13:46 Pantoprazole Sodium (Pantoprazole Inj 40 Mg Vial) 40 mg IVP Q12HR FREDIS Stop: 10/28/24 20:59 Sennosides (Senna Tablet) 1 tab PO QDAY PRN; Protocol PRN Reason: constipation Stop: 10/28/24 13:46 Discontinued Medications Albuterol/Ipratropium (Albuterol/Ipratropium (Duoneb) Rt Marita 3 Ml Nebu) 3 ml INH X1 ONE Stop: 09/28/24 04:22 Last Admin: 09/28/24 04:34 Dose: 3 ml Albuterol/Ipratropium (Albuterol/Ipratropium (Duoneb) Rt Marita 3 Ml Nebu) 3 ml INH X1 ONE Stop: 09/28/24 12:39 Last Admin: 09/28/24 12:56 Dose: 3 ml Aspirin (Aspirin Ec 81 Mg Tabec) 324 mg PO X1 ONE Stop: 09/28/24 05:50 Last Admin: 09/28/24 05:57 Dose: 324 mg Furosemide (Furosemide Inj 10 Mg/Ml 4ml Vial) 40 mg IVP X1 ONE Stop: 09/28/24 05:20 Last Admin: 09/28/24 05:24 Dose: 40 mg Furosemide (Furosemide Inj 10 Mg/Ml 4ml Vial) 40 mg IVP X1 ONE Stop: 09/28/24 12:27 Last Admin: 09/28/24 13:54 Dose: 40 mg Methylprednisolone Sodium Succinate (Methylprednisolone Sod Succ 62.5 Mg/Ml 2ml Vial) 125 mg IVP X1 ONE Stop: 09/28/24 04:22 Last Admin: 09/28/24 04:49 Dose: 125 mg Assessment & Plan Plan In summary: 84-year-old male with PMHx of seizure, A-fib, HTN, HFpEF 55-60% 08/2024, COPD, HLD admitted for acute hypoxic respiratory failure, likely COPD exacerbation. Started on DIURETICS, DuoNebs and SOLU-MEDROL. Med rec's pending # Acute hypoxemic, hypercapnic respiratory failure 11/27: # COPD exacerbation #? CHF exacerbation Presented with shortness of breath, difficulty breathing, desatting in ED, required BiPAP History limited, mentation waxing waning, however AOA x 3 Trace bilateral pitting edema on exam CXR mild CHF, vascular congestion, septal edema, small left pleural effusion ABG compensated respiratory acidosis with pH 7.42, pCO2 75, PaO2 59, bicarb 48 BNP 251, ECHO 09/18 EF 55-60%. TSH 1.91 normal from 08/2024, normal lipid panel, A1c pending ? Continue BiPAP ? Oxygen PRN, goal 88-92% saturation ? DuoNebs scheduled ? SOLU-MEDROL 40 mg IV daily ? AZITHROMYCIN 250 mg daily ? LASIX 40 mg BID ? Strict MEAGAN's ? Fluid restriction less than 1500 ? Chest physiotherapy ? MUCINEX BID PRN ? Follow-up A1c # NSTEMI type II Admission troponin 0.054 > 0.073, EKG pending Likely demand ischemia in setting of hypoxemia History limited, unable to assess chest pain EKG pending ? Troponin q.6 H ? Telemetry # Hypertension # Hyperlipidemia # History of A-fib Unclear if patient is taking medications for HTN or HLD BP 151/83, lipid panel normal this admission Sinus rhythm on exam, EKG pending ? Consider starting to hypertensive ? Telemetry # Chronic microcytic anemia # Thrombocytopenia Hemoglobin 12.4, 104, both near baseline ? Daily CBC ? Transfuse if Hgb <8 ? B12 ordered ? NEPHRO-JAKE ordered # Active tobacco smoker ? NICOTINE patch Health maintenance Diet: CARDIAC GI prophylaxis: PROTONIX DVT prophylaxis: HEPARIN subcu Antibiotics: Not indicated CODE STATUS: Full code Disposition: Pending improved oxygenation Patient case was discussed with attending, Dr. Saida LEWIS and senior residents Dr. Coreas and Dr. Bowers. Mihir Strong DO PGYI Attending Provider Attestation/Addendum I reviewed labs, imaging, EKG, home medications and prior available records. Face to face evaluation was performed by me. I have personally examined the patient and discussed assessment and plan with the IM team. I reviewed the resident note and agree with the plan with exceptions as below. Patient is a 64-year-old male with history of CHF and COPD who presented with a chief complaint of altered mental status and shortness of breath. He was found to have acute hypoxic respiratory failure in the setting of CHF versus COPD exacerbation. Altered mental status: In setting of hypercapnia and hypoxia. Improved with BiPAP. Management of the underlying conditions as below. Acute respiratory failure with hypercapnia: Likely secondary to COPD exacerbation. Started DuoNebs. Started systemic corticosteroids. Acute respiratory failure with hypoxia: Likely secondary to mild pulmonary edema from CHF exacerbation. Started IV diuresis. Monitor I's and O's. Non-STEMI: Likely demand ischemia in the setting of hypoxia and CHF exacerbation. Management as above. Continue telemetry.
--- NOTE | 2024-09-28 15:43 | PC.NURSE ---
Report given to Rinku, will transfer to room 273.
[2024-09-28 15:50] LABS: Cardiac Risk Estimate 4.3 RATIO (4.0-6.7); Cholesterol 180 mg/dL (132-200); HDL Cholesterol 42 mg/dL (40-60); LDL Cholesterol,Calculated 122 mg/dL (0-130); Triglycerides 82 mg/dL (30-150)
--- NOTE | 2024-09-28 16:11 | ECHO_ITS ---
Transthoracic Echo Report Ht (in): 71 Wt (lb): 235 Exam Location: [facility] Status: Inpatient Electrolysis Engineer: Laureen Mccoy Indications: Procedure Performed: BP: 148 / 78 HR: 74 Rhythm: Sinus Technical Quality: Technically difficult study MEASUREMENTS (Male / Female) Normal Values 2D ECHO LV Diastolic Diameter PLAX 4.6 cm 4.2 - 5.9 / 3.9 - 5.3 cm LV Systolic Diameter PLAX 3.4 cm IVS Diastolic Thickness 1.0 cm 0.6 - 1.0 / 0.6 - 0.9 cm LVPW Diastolic Thickness 0.9 cm 0.6 - 1.0 / 0.6 - 0.9 cm LV Relative Wall Thickness 0.4 LVOT Diameter 1.9 cm LA Volume Index 46.0 cm?/m? 16 - 28 cm?/m? Ascending Aorta Diameter 3.8 cm M-MODE Aortic Root Diameter MM 3.0 cm LA Systolic Diameter MM 4.2 cm LA Ao Ratio MM 1.4 AV Cusp Separation MM 1.9 cm DOPPLER AV Peak Velocity 159.0 cm/s AV Peak Gradient 10.1 mmHg AV Mean Gradient 5.0 mmHg AV Velocity Time Integral 31.8 cm LVOT Peak Velocity 109.0 cm/s LVOT Peak Gradient 4.8 mmHg LVOT Velocity Time Integral 22.8 cm LVOT Cardiac Index 2041.6 cm?/min?m? AV Area Cont Eq vti 2.0 cm? AV Area Cont Eq pk 1.9 cm? MV Peak Velocity 136.0 cm/s MV Peak Gradient 7.4 mmHg MV Mean Velocity 79.9 cm/s MV Mean Gradient 3.0 mmHg MV Area PHT 3.7 cm? Mitral E Point Velocity 100.0 cm/s Mitral A Point Velocity 110.0 cm/s Mitral E to A Ratio 0.9 LV E' Lateral Velocity 10.0 cm/s Mitral E to LV E' Lateral Ratio 10.0 LV E' Septal Velocity 9.0 cm/s Mitral E to LV E' Septal Ratio 11.1 FINDINGS Left Ventricle Normal left ventricular size, wall thickness, systolic function with no obvious regional wall motion abnormalities. The ejection fraction is visually estimated at 55-60% Right Ventricle The right ventricle is mildly dilated. Normal systolic function. Left Atrium The left atrium is mildly dilated. Right Atrium The right atrium is normal by two-dimensional imaging, color flow and Doppler imaging with no struct ural abnormalities, no thrombus formation present. Atrial Septum The interatrial septum appears normal with no evidence of a shunt. Aorta The aorta is normal by two-dimensional, color flow and Doppler interrogation. Mitral Valve The mitral valve is normal by two-dimensional, color flow and Doppler interrogation. There is trace mitral valve regurgitation. Aortic Valve The aortic valve is trileaflet and normal by two-dimensional, color flow and Doppler interrogation. There is no significant aortic valve regurgitation. Tricuspid Valve The tricuspid valve is normal by two-dimensional, color flow and Doppler interrogation. There is tra ce tricuspid valve regurgitation. Pulmonic Valve There is no significant pulmonic valve regurgitation. Vessels The pulmonary artery appears normal. The inferior vena cava pulmonary and hepatic veins appear sanket l. Pericardium The pericardium is normal by two-dimensional imaging. There is no significant pericardial effusion. CONCLUSIONS Indication: CHF Normal LV size and function. Grade I diastolic dysfunction. Estimated EF 55-60% Mild RV dilation. Normal RV function. Mild LA dilatation. Trace MR, TR. Zaida Alvares (Electronically Signed) Final Date: 29 September 2024 18:31
[2024-09-28 16:39] LABS: Troponin I 0.054 ng/mL (0.0-0.045)
[2024-09-28] MEDS: CYANOCOBALAMIN INJ 1,000 mCg/ML VIAL 1000 MCG IM (16:40)
[2024-09-28] MEDS: AZITHROMYCIN INJ 500 MG in SODIUM CHLORIDE 0.9% 250 ML 250 ML 250 MG IV (17:36)
--- NOTE | 2024-09-28 19:37 | PC.NURSE ---
Patient has wallet with money and a check. Patient refusing to put wallet in safe.
[2024-09-28] MEDS: PANTOPRAZOLE INJ 40 MG VIAL IVP (21:08)
[2024-09-28] MEDS: HEPARIN SOD INJ 5000 UNIT/ML VIAL SC (21:08)
[2024-09-29] VITALS (13 sets, daily range): BP systolic 128–148; BP diastolic 62–81; PULSE 68–84; RESP 16–78; TEMP 36.2–36.7; O2SAT 90–98
[2024-09-29] MEDS: ALBUTEROL/IPRATROPIUM (Duoneb) RT SOL 3 ML NEBU INH ×3 (01:49→13:02)
[2024-09-29] MEDS: HEPARIN SOD INJ 5000 UNIT/ML VIAL SC ×3 (05:32→21:12)
[2024-09-29 06:21] LABS: Basophils % (Auto) 0 % (0-2.5); Eosinophils % (Auto) 0 % (0-10); Hematocrit 38.9 % (41.0-53.0); Hemoglobin 11.8 g/dL (13.5-16.0); Immature Granulocytes % (Auto) 1 % (0-0); Immature Granulocytes Auto 0.04 Thou/mm3 (0.00-0.00); Lymphocytes # (Auto) 1.4 Thou/mm3 (1.0-4.8); Lymphocytes % (Auto) 23 % (10-50); Mean Corpuscular HGB Conc 30.3 g/dl (31.0-37.0); Mean Corpuscular Hemoglobin 30.8 pg (25.0-35.0); Mean Corpuscular Volume 102 fL (80-100); Monocytes # (Auto) 0.4 Thou/mm3 (0.0-0.8); Monocytes % (Auto) 6 % (0-12); Neutrophils # (Auto) 4.2 Thou/mm3 (1.8-7.7); Neutrophils % (Auto) 69 % (37-80); Nucleated Red Blood Cell % 0 /100 WBC (0); Platelet Count 103 Thou/mm3 (140-440); Red Blood Count 3.83 Miln/mm3 (4.50-5.90)
[2024-09-29 06:38] LABS: Alanine Aminotransferase 18 U/L (10-49); Albumin, Serum 3.7 gm/dL (3.4-4.8); Albumin/Globulin Ratio 1.7 (1.2-2.2); Alkaline Phosphatase 61 U/L (46-116); Anion Gap 8 (7-16); Aspartate Amino Transferase 14 U/L (0-34); BUN/Creatinine Ratio 24 Ratio (12-20); Bilirubin,Total 0.3 mg/dL (0.3-1.2); Blood Urea Nitrogen 19 mg/dL (9-23); Calcium 8.9 mg/dL (8.3-10.6); Calcium (Corrected) 9.1 mg/dL (8.5-10.1); Carbon Dioxide > 40.0 mMol/L (20.0-31.0); Chloride 91 mMol/L (98-107); Creatinine (Component) 0.8 mg/dL (0.6-1.3); Estimated Creatinine Clearance 117.6 mL/min (>60); Globulin 2.2 gm/dL (2.3-3.5); Glucose 172 mg/dL (74-106); Osmolality,Calculated 283 (275-295); Potassium 3.8 mMol/L (3.4-5.1); Sodium 139 mMol/L (136-145); Total Protein 5.9 gm/dL (5.7-8.2); eGFR > 60 See Note
[2024-09-29 06:48] LABS: Glucose Estimated Average 97 mg/dL (80-131)
[2024-09-29] MEDS: PANTOPRAZOLE INJ 40 MG VIAL IVP ×2 (09:01→20:39)
[2024-09-29] MEDS: FUROSEMIDE INJ 10 MG/ML 4ML VIAL 60 MG IVP ×2 (09:04→20:39)
[2024-09-29] MEDS: VIT B12/Vit C/FA (Nephrovite) TABLET 1 TAB PO (09:04)
--- NOTE | 2024-09-29 09:40 | ESPR_ITS ---
Documentation for date of: 09/29/24 Subjective Subjective Interval history: No acute overnight events. Patient continued on BiPAP overnight, tolerated well. Patient has improved, able to engage in conversation much better. Still has pleuritic chest pain but improving. Denies fever, chills, headaches, chest pain, palpitations, sob, cough, GI or urinary symptoms. Exam Vital Signs Temp Pulse Resp BP Pulse Ox O2 Del Method O2 Flow Rate 97.7 F 78 23 H 128/68 93 L Nasal Cannula 3 09/29/24 08:00 09/29/24 09:04 09/29/24 08:00 09/29/24 09:04 09/29/24 08:00 09/29/24 08:00 09/29/24 08:00 FiO2 30 09/29/24 04:00 Narrative Exam GENERAL: Obese male, disheveled, on BiPAP HEENT: NCAT.?[place]. Oral mucosa is moist. Patent Nares NECK: Supple, nontender, no thyromegaly, no meningismus, no JVD, no step offs CHEST: Symmetrical, atraumatic, and with equal expansion, Nontender on palpation no deformity and no crepitus. CARDIOVASCULAR: RRR, no m/g/r LUNGS: CTAB, no w/r/r. Symmetrical chest rise. No intercostal subcostal retraction. ABDOMEN: Soft, flat, nontender. No guarding/rebound tenderness/masses. +BS EXTREMITIES: Nontender.? Trace edema bilaterally. BL chronic stasis dermatitis SKIN: Warm and dry, no jaundice. Multiple diffuse skin abrasions throughout. MSK: No lumbar or midline, no CVA, no paraspinal muscle spasm or tenderness. Neuropsych: Drowsy, oriented x 3,?No focal neurologic deficits. Objective Labs 09/30/24 04:54 09/30/24 04:54 Labs: Laboratory Results - last 24 hr 09/28/24 09/28/24 09/28/24 10:16 11:41 12:47 WBC RBC Hgb Hct MCV MCH MCHC RDW Std Deviation Plt Count Neut % (Auto) Lymph % (Auto) [place] % (Auto) Eos % (Auto) Baso % (Auto) Neut # (Auto) Lymph # (Auto) [place] # (Auto) Eos # (Auto) Baso # (Auto) Immature Gran # (Auto) Absolute Nucleated RBC Immature Gran % Nucleated RBC % Puncture Site Right Radial Left Radial ABG pH 7.38 7.42 ABG pCO2 82 H* D 75 H* ABG pO2 53 L* D 59 L* ABG HCO3 49 H 48 H ABG O2 Saturation 87 L 90 L ABG Base Excess 19 H 20 H FiO2 30 30 Sodium Potassium Chloride Carbon Dioxide Anion Gap BUN Creatinine Estim Creat Clear Calc eGFR BUN/Creatinine Ratio Glucose Estimated Ave Glu mg/dL Hemoglobin A1c Calculated Osmolality Calcium Corrected Calcium Phosphorus Magnesium Total Bilirubin AST ALT Alkaline Phosphatase Troponin I 0.073 H* Total Protein Albumin Globulin Albumin/Globulin Ratio Triglycerides 82 Cholesterol 180 LDL Cholesterol, Calc 122 HDL Cholesterol 42 Cholesterol/HDL Ratio 4.3 09/28/24 09/29/24 15:51 05:38 WBC 6.0 RBC 3.83 L Hgb 11.8 L Hct 38.9 L MCV 102 H MCH 30.8 MCHC 30.3 L RDW Std Deviation 56.0 H Plt Count 103 L Neut % (Auto) 69 Lymph % (Auto) 23 [place]rell % (Auto) 6 Eos % (Auto) 0 Baso % (Auto) 0 Neut # (Auto) 4.2 Lymph # (Auto) 1.4 [place]rell # (Auto) 0.4 Eos # (Auto) 0.0 Baso # (Auto) 0.0 Immature Gran # (Auto) 0.04 H Absolute Nucleated RBC 0.00 Immature Gran % 1 H Nucleated RBC % 0 Puncture Site ABG pH ABG pCO2 ABG pO2 ABG HCO3 ABG O2 Saturation ABG Base Excess FiO2 Sodium 139 Potassium 3.8 Chloride 91 L Carbon Dioxide > 40.0 H Anion Gap 8 BUN 19 Creatinine 0.8 Estim Creat Clear Calc 117.6 eGFR > 60 BUN/Creatinine Ratio 24 H Glucose [address] Glu mg/dL 97 Hemoglobin A1c 5.0 Calculated Osmolality 283 Calcium 8.9 Corrected Calcium 9.1 Phosphorus 3.0 Magnesium 2.0 Total Bilirubin 0.3 AST 14 ALT 18 Alkaline Phosphatase 61 Troponin I 0.054 H* Total Protein 5.9 Albumin 3.7 D Globulin 2.2 L Albumin/Globulin Ratio 1.7 Triglycerides Cholesterol LDL Cholesterol, Calc HDL Cholesterol Cholesterol/HDL Ratio ABG Interpretation ABG results: 09/28/24 09/28/24 09/28/24 08:15 10:16 12:47 ABG pH 7.29 L 7.38 7.42 ABG pCO2 102 H* 82 H* D 75 H* ABG pO2 76 L 53 L* D 59 L* ABG HCO3 49 H 49 H 48 H ABG O2 Saturation 92 87 L 90 L ABG Base Excess 18 H 19 H 20 H Quality Measures Quality Measures none Assessment & Plan Assessment Current Active Medications: Generic Name Dose Route Start Last Admin Trade Name Freq PRN Reason Stop Dose Admin Acetaminophen 650 mg 09/28/24 13:47 Acetaminophen 325 Mg Tablet PO 10/28/24 13:46 Q6H PRN PAIN SCALE 1-3 (mild Acetaminophen 650 mg 09/28/24 15:36 Acetaminophen 325 Mg Tablet PO 10/28/24 13:46 Q6H PRN Fever >100.4 Hydrocodone Bitart/Acetaminophen 1 tab 09/28/24 13:47 Hydrocodone/Apap 5/325 Tablet PO 10/03/24 13:46 Q4HR PRN PAIN SCALE 4-6 (Moderate Albuterol/Ipratropium 3 ml 09/28/24 19:00 09/29/24 07:13 Albuterol/Ipratropium (Duoneb) Rt Marita 3 Ml Nebu INH 10/28/24 18:59 3 ml Q6HRRT FREDIS Administration Albuterol/Ipratropium 3 ml 09/28/24 18:13 Albuterol/Ipratropium (Duoneb) Rt Marita 3 Ml Nebu INH 10/28/24 18:12 Q2HR PRN SHORTNESS OF BREATH OR WHEEZE Azithromycin 500 mg 09/29/24 14:00 Azithromycin 250 Mg Tablet PO 10/01/24 13:59 QDAY@1400 FREDIS Furosemide 60 mg 09/29/24 09:00 09/29/24 09:04 Furosemide Inj 10 Mg/Ml 4ml Vial IVP 10/29/24 08:59 60 mg BID FREDIS Administration Guaifenesin 1 tab 09/28/24 15:40 Guaifenesin/P-Ephed Tablet PO 10/28/24 20:59 BID PRN cough Heparin Sodium (Porcine) 5,000 unit 09/28/24 22:00 09/29/24 05:32 Heparin Sod Inj 5000 Unit/Ml Vial SC 10/12/24 21:59 5,000 unit Q8HR FREDIS Administration Methylprednisolone Sodium Succinate 40 mg 09/29/24 09:00 09/29/24 09:02 Methylprednisolone Sod Succ 40 Mg Vial IVP 10/06/24 08:59 40 mg DAILY FREDIS Administration Nicotine 14 mg 09/28/24 16:15 09/29/24 09:01 Nicotine Patch 14 Mg/24 Hr Patch.Td24 TOP 10/28/24 16:14 Not Given QDAY FREDIS Ondansetron HCl 4 mg 09/28/24 13:47 Ondansetron Inj 2 Mg/Ml Inj 2 Ml IV 10/28/24 13:46 Q6H PRN NAUSEA OR VOMITING Protocol Pantoprazole Sodium 40 mg 09/28/24 21:00 09/29/24 09:01 Pantoprazole Inj 40 Mg Vial IVP 10/28/24 20:59 40 mg Q12HR FREDIS Administration Sennosides 1 tab 09/28/24 13:47 Senna Tablet PO 10/28/24 13:46 QDAY PRN constipation Protocol Vitamin B Complex/Vit C/Folic Acid 1 tab 09/29/24 09:00 09/29/24 09:04 Vit B12/Vit C/Fa (Nephrovite) Tablet PO 10/29/24 08:59 1 tab QDAY FREDIS Administration Plan In summary: 84-year-old male with PMHx of seizure, A-fib, HTN, HFpEF 55-60% 08/2024, COPD on 3 L home oxygen, HLD admitted for acute hypoxic respiratory failure, likely COPD exacerbation. Started on DIURETICS, DuoNebs and SOLU- MEDROL. Satting 80-90 percent on 5L OxiMax, however, desatting to low 80s on minimal exertion including talking and eating. Patient will discharge on home oxygen once ready. # Acute hypoxemic, hypercapnic respiratory failure 11/27: # COPD exacerbation #? CHF exacerbation Presented with shortness of breath, difficulty breathing, desatting in ED, required BiPAP History limited, mentation waxing waning, however AOA x 3 Trace bilateral pitting edema on exam CXR mild CHF, vascular congestion, septal edema, small left pleural effusion ABG compensated respiratory acidosis with pH 7.42, pCO2 75, PaO2 59, bicarb 48 BNP 251, ECHO 09/18 EF 55-60%. TSH 1.91 normal from 08/2024, normal lipid panel, A1c 5.0 this visit Has BiPAP at home, advised continue BiPAP ? Continue BiPAP HS ? Oxygen PRN, goal 88-92% saturation ? Continue DuoNebs scheduled ? Continue SOLU-MEDROL 40 mg IV daily ? Continue AZITHROMYCIN 250 mg daily ? Continue LASIX 60 mg BID ? Strict MEAGAN's ? Fluid restriction less than 1500 ? Chest physiotherapy ? Continue MUCINEX PRN # NSTEMI type II ? resolved Plan and peaked at 0.073, now 0.0540 Has pleuritic chest pain with deep breathing, non-ischemic in nature Likely demand ischemia in setting of hypoxemia EKG showed sinus rhythm ? Telemetry # Hypertension # Hyperlipidemia # History of A-fib Unclear if patient is taking medications for HTN or HLD BP 151/83, lipid panel normal this admission Currently BP 128/68, HR 78 ? Consider starting to hypertensive as indicated ? Telemetry # Chronic microcytic anemia # Thrombocytopenia Hemoglobin 12.4, 104, both near baseline ? Daily CBC ? Transfuse if Hgb <8 ? B12 ordered ? NEPHRO-JAKE ordered # Active tobacco smoker ? NICOTINE patch Health maintenance Diet: CARDIAC GI prophylaxis: PROTONIX DVT prophylaxis: HEPARIN subcu Antibiotics: Not indicated CODE STATUS: Full code Disposition: Pending improved oxygenation Patient case was discussed with attending, Dr. Saida LEWIS and senior residents Dr. Coreas and Dr. Bowers. Mihir Strong, DO PGYI L Mr. Lowe is a 64-year-old male with past medical history of atrial fibrillation (not on anticoagulation by choice), COPD, HFrEF 55-60% who was admitted for acute hypoxic respiratory failure due to COPD exacerbation in the setting of acute decompensation of chronic diastolic heart failure. Titrated down from BiPAP to 5L oxygen via NC, with goal sats 88-92% today. Will continue diuresing with Lasix 60 mg twice daily with strict input output charting and fluid restriction to 1.5 L daily, for his CHF exacerbation. Continue DuoNebs, Solu-Medrol 40 mg daily, IV azithromycin, daily chest physio for COPD exacerbation. Dispo: Anticipate DC in next 24-48 hours Patient examined and case discussed with the team including attending physician. Note reviewed, I agree with the care plan as documented. - Sam Bowers MD, PGY 2 Attending Provider Attestation/Addendum I reviewed labs, imaging, EKG, home medications and prior available records. Face to face evaluation was performed by me. I have personally examined the patient and discussed assessment and plan with the IM team. I reviewed the resident note and agree with the plan with exceptions as below. Patient is a 64-year-old male with history of CHF and COPD who presented with a chief complaint of altered mental status and shortness of breath. He was found to have acute hypoxic respiratory failure in the setting of CHF versus COPD exacerbation. Altered mental status: Resolved. In setting of hypercapnia and hypoxia. He was on oxy mask this morning. Continue CPAP at night. Patient mentioned that he has a CPAP machine at nighttime that got recently. Management of the underlying conditions as below. Acute respiratory failure with hypercapnia: Likely secondary to COPD exacerbation. Started DuoNebs. Started systemic corticosteroids. Acute respiratory failure with hypoxia: Likely secondary to mild pulmonary edema from CHF exacerbation. Started IV diuresis. Monitor I's and O's. Non-STEMI: Likely demand ischemia in the setting of hypoxia and CHF exacerbation. Troponin peaked. Management as above. Continue telemetry.
[2024-09-29 10:51] LABS: Base Excess, Venous 24 (-3-3); O2 Saturation, Venous 95 % (96-97); PCO2, Venous 86 mmHg (36-56); PO2, Venous 107 mmHg (15-58)
--- NOTE | 2024-09-29 14:28 | PC.PT ---
Patient refused PT eval today secondary to patient has severe pain 10/10 in his back and shoulders which is limiting his ability to take deep breaths. Patient said he would not work with PT today but was receptive to having PT eval done tomorrow. Will re-attempt PT eval tomorrow. JAY Meek notified of patient refusal to work with PT today.
[2024-09-29] MEDS: AZITHROMYCIN 250 MG TABLET 500 MG PO (14:42)
--- NOTE | 2024-09-29 14:59 | PC.SS ---
Patient is alert/oriented. He resides with his roommate. Patient was recently here end of August and discharged home. Patient states he's indeendent with ADL's. He has a walker/wheelchair at home. Patient takes [facility] transport to appointments. Patient has home /[employer] at home. Patient states he follows at [facility]. Last appt was a few months ago. Patient states his son, Daniel, is his alt medical decision maker. His discharge plan is to return home.
[2024-09-30] VITALS (9 sets, daily range): BP systolic 128–137; BP diastolic 62–76; PULSE 70–93; RESP 16–40; TEMP 36.2–36.5; O2SAT 92–97
[2024-09-30] MEDS: HEPARIN SOD INJ 5000 UNIT/ML VIAL SC (05:18)
[2024-09-30 05:57] LABS: Basophils % (Auto) 0 % (0-2.5); Eosinophils % (Auto) 0 % (0-10); Hematocrit 40.9 % (41.0-53.0); Hemoglobin 12.4 g/dL (13.5-16.0); Immature Granulocytes % (Auto) 1 % (0-0); Immature Granulocytes Auto 0.04 Thou/mm3 (0.00-0.00); Lymphocytes # (Auto) 1.4 Thou/mm3 (1.0-4.8); Lymphocytes % (Auto) 17 % (10-50); Mean Corpuscular HGB Conc 30.3 g/dl (31.0-37.0); Mean Corpuscular Hemoglobin 30.7 pg (25.0-35.0); Mean Corpuscular Volume 101 fL (80-100); Monocytes # (Auto) 0.5 Thou/mm3 (0.0-0.8); Monocytes % (Auto) 7 % (0-12); Neutrophils % (Auto) 76 % (37-80); Nucleated Red Blood Cell % 0 /100 WBC (0); Platelet Count 104 Thou/mm3 (140-440); RDW Standard Deviation 54.5 fL (35.1-43.9); Red Blood Count 4.04 Miln/mm3 (4.50-5.90)
[2024-09-30 06:43] LABS: Alanine Aminotransferase 16 U/L (10-49); Albumin, Serum 4.2 gm/dL (3.4-4.8); Alkaline Phosphatase 66 U/L (46-116); Anion Gap 12 (7-16); Aspartate Amino Transferase 11 U/L (0-34); BUN/Creatinine Ratio 24 Ratio (12-20); Bilirubin,Total 0.3 mg/dL (0.3-1.2); Blood Urea Nitrogen 22 mg/dL (9-23); Calcium 8.9 mg/dL (8.3-10.6); Calcium (Corrected) 8.9 mg/dL (8.5-10.1); Carbon Dioxide > 40.0 mMol/L (20.0-31.0); Chloride 87 mMol/L (98-107); Creatinine (Component) 0.9 mg/dL (0.6-1.3); Estimated Creatinine Clearance 102.1 mL/min (>60); Globulin 2.1 gm/dL (2.3-3.5); Glucose 106 mg/dL (74-106); Magnesium 1.9 mg/dL (1.6-2.6); Osmolality,Calculated 280 (275-295); Phosphorous 3.5 mg/dL (2.4-5.1); Potassium 3.4 mMol/L (3.4-5.1); Sodium 139 mMol/L (136-145); Total Protein 6.3 gm/dL (5.7-8.2); eGFR > 60 See Note
[2024-09-30] MEDS: FUROSEMIDE INJ 10 MG/ML 4ML VIAL 60 MG IVP (09:31)
[2024-09-30] MEDS: VIT B12/Vit C/FA (Nephrovite) TABLET 1 TAB PO (09:32)
[2024-09-30] MEDS: PANTOPRAZOLE INJ 40 MG VIAL IVP (09:32)
--- NOTE | 2024-09-30 10:01 | PD.RESPRO ---
Documentation for date of: 09/30/24 Subjective Subjective Interval history: satting well on 3L Exam Vital Signs Temp Pulse Resp BP Pulse Ox O2 Del Method O2 Flow Rate 97.2 F 93 26 H 128/66 97 Oxy Mask 4 09/30/24 08:00 09/30/24 09:31 09/30/24 09:00 09/30/24 09:31 09/30/24 09:00 09/30/24 08:00 09/30/24 09:00 FiO2 30 09/30/24 08:00 Objective Labs 09/30/24 04:54 09/30/24 04:54 Labs: Laboratory Results - last 24 hr 09/29/24 09/30/24 10:44 04:54 WBC 8.0 RBC 4.04 L Hgb 12.4 L Hct 40.9 L MCV 101 H MCH 30.7 MCHC 30.3 L RDW Std Deviation 54.5 H Plt Count 104 L Neut % (Auto) 76 Lymph % (Auto) 17 Forrest % (Auto) 7 Eos % (Auto) 0 Baso % (Auto) 0 Neut # (Auto) 6.0 Lymph # (Auto) 1.4 Forrest # (Auto) 0.5 Eos # (Auto) 0.0 Baso # (Auto) 0.0 Immature Gran # (Auto) 0.04 H Absolute Nucleated RBC 0.00 Immature Gran % 1 H Nucleated RBC % 0 VBG pH 7.40 VBG pCO2 86 H VBG pO2 107 H VBG O2 Sat (Osmin) 95 L VBG Base Excess 24 H Sodium 139 Potassium 3.4 Chloride 87 L Carbon Dioxide > 40.0 H Anion Gap 12 BUN 22 Creatinine 0.9 Estim Creat Clear Calc 102.1 eGFR > 60 BUN/Creatinine Ratio 24 H Glucose 106 D Calculated Osmolality 280 Calcium 8.9 Corrected Calcium 8.9 Phosphorus 3.5 Magnesium 1.9 Total Bilirubin 0.3 AST 11 ALT 16 Alkaline Phosphatase 66 Total Protein 6.3 Albumin 4.2 D Globulin 2.1 L Albumin/Globulin Ratio 2.0 ABG Interpretation ABG results: 09/28/24 09/28/24 09/28/24 08:15 10:16 12:47 ABG pH 7.29 L 7.38 7.42 ABG pCO2 102 H* 82 H* D 75 H* ABG pO2 76 L 53 L* D 59 L* ABG HCO3 49 H 49 H 48 H ABG O2 Saturation 92 87 L 90 L ABG Base Excess 18 H 19 H 20 H VBG pH VBG pCO2 VBG pO2 VBG Base Excess 09/29/24 10:44 ABG pH ABG pCO2 ABG pO2 ABG HCO3 ABG O2 Saturation ABG Base Excess VBG pH 7.40 VBG pCO2 86 H VBG pO2 107 H VBG Base Excess 24 H Quality Measures Quality Measures none Assessment & Plan Assessment Current Active Medications: Generic Name Dose Route Start Last Admin Trade Name Freq PRN Reason Stop Dose Admin Acetaminophen 650 mg 09/28/24 13:47 Acetaminophen 325 Mg Tablet PO 10/28/24 13:46 Q6H PRN PAIN SCALE 1-3 (mild Acetaminophen 650 mg 09/28/24 15:36 Acetaminophen 325 Mg Tablet PO 10/28/24 13:46 Q6H PRN Fever >100.4 Hydrocodone Bitart/Acetaminophen 1 tab 09/28/24 13:47 Hydrocodone/Apap 5/325 Tablet PO 10/03/24 13:46 Q4HR PRN PAIN SCALE 4-6 (Moderate Albuterol/Ipratropium 3 ml 09/28/24 18:13 Albuterol/Ipratropium (Duoneb) Rt Marita 3 Ml Nebu INH 10/28/24 18:12 Q2HR PRN SHORTNESS OF BREATH OR WHEEZE Azithromycin 500 mg 09/29/24 14:00 09/29/24 14:42 Azithromycin 250 Mg Tablet PO 10/01/24 13:59 500 mg QDAY@1400 FREDIS Administration Furosemide 60 mg 09/29/24 09:00 09/30/24 09:31 Furosemide Inj 10 Mg/Ml 4ml Vial IVP 10/29/24 08:59 60 mg BID FREDIS Administration Guaifenesin 1 tab 09/28/24 15:40 Guaifenesin/P-Ephed Tablet PO 10/28/24 20:59 BID PRN cough Heparin Sodium (Porcine) 5,000 unit 09/28/24 22:00 09/30/24 05:18 Heparin Sod Inj 5000 Unit/Ml Vial SC 10/12/24 21:59 5,000 unit Q8HR FREDIS Administration Methylprednisolone Sodium Succinate 40 mg 09/29/24 09:00 09/30/24 09:31 Methylprednisolone Sod Succ 40 Mg Vial IVP 10/06/24 08:59 40 mg DAILY FREDIS Administration Nicotine 14 mg 09/28/24 16:15 09/30/24 09:32 Nicotine Patch 14 Mg/24 Hr Patch.Td24 TOP 10/28/24 16:14 Not Given QDAY FREDIS Ondansetron HCl 4 mg 09/28/24 13:47 Ondansetron Inj 2 Mg/Ml Inj 2 Ml IV 10/28/24 13:46 Q6H PRN NAUSEA OR VOMITING Protocol Pantoprazole Sodium 40 mg 09/28/24 21:00 09/30/24 09:32 Pantoprazole Inj 40 Mg Vial IVP 10/28/24 20:59 40 mg Q12HR FREDIS Administration Sennosides 1 tab 09/28/24 13:47 Senna Tablet PO 10/28/24 13:46 QDAY PRN constipation Protocol Vitamin B Complex/Vit C/Folic Acid 1 tab 09/29/24 09:00 09/30/24 09:32 Vit B12/Vit C/Fa (Nephrovite) Tablet PO 10/29/24 08:59 1 tab QDAY FREDIS Administration
--- NOTE | 2024-09-30 11:49 | PC.SS ---
Patient to d/c home today. He needs his 02 delivered. SS contacted [facility] for portable delivery. They will deliver today within an hour. Patient will then need uber/taxi home. SS will contact them once 02 is delivered.
[2024-09-30] MEDS: DAPAGLIFLOZIN PROPANEDIOL 5 MG TABLET PO (12:09)
[2024-09-30] MEDS: SPIRONOLACTONE 25 MG TABLET PO (12:09)
--- NOTE | 2024-09-30 15:27 | PD.RESDS ---
Planned Discharge Date 09/30/24 DS: Providers Provider Date of admission: 09/28/24 13:48 Primary care physician: Physician No Primary/Family Admitting Provider: Jose Cintron MD Attending Provider on Admission: Jose Cintron MD Consults: 09/28/24 16:07 Referral Physical Therapy Routine Comment: Physician Instructions: Attending Provider on DC: Jose Cintron MD Discharging Provider: Jose Cintron MD DS: Diagnosis Problem List Completed Was Problem List Reviewed/Reconciled?: Yes Hospital Course Hospital Course Hospital course: Is an 84-year-old male with PMHx of seizure, A-fib, HTN, HFpEF 55-60% 08/2024, COPD on 3 L home oxygen, HLD admitted for acute hypoxic respiratory failure, likely COPD exacerbation. Started on DIURETICS, DuoNebs and SOLU-MEDROL. Was improved with management, patient satting well on 3 L oxygen which is his baseline. Advised to continue CPAP nightly. Patient stable to discharge to home. PATIENT INSTRUCTIONS: ? Follow-up with PCP within 1 week of discharge ? Continue taking FUROSEMIDE 40 mg BID ? Continue taking AZITHROMYCIN 500 mg BID for 2 more days ? Continue taking METHYLPREDNISOLONE 4 mg for 7 days ? Continue to FARXIGA 5 mg QAM ? Continue taking EPLERENONE 25 mg daily ? Return to emergency room if symptoms persist, worsen or new symptoms develop ADMISSION DIAGNOSES: # Acute hypoxemic, hypercapnic respiratory failure 11/27: # COPD exacerbation #? CHF exacerbation # NSTEMI type II ? resolved # Hypertension # Hyperlipidemia # History of A-fib # Chronic microcytic anemia # Thrombocytopenia # Active tobacco smoker Patient case was discussed with attending, Jose Cintron MD and senior residents Dr. Coreas and Dr. Bowers. Mihir Strong DO PGYI Time Spent with Patient Time attestation: Total time spent providing and/or coordinating discharge services: Greater than 35 minutes Exam Vital Signs Temp Pulse Resp BP Pulse Ox O2 Del Method O2 Flow Rate 97.6 F 78 27 H 135/62 H 92 L Nasal Cannula 4 09/30/24 14:15 09/30/24 14:15 09/30/24 14:15 09/30/24 14:15 09/30/24 14:15 09/30/24 14:15 09/30/24 14:15 FiO2 30 09/30/24 12:00 Narrative Exam GENERAL: Obese male, disheveled, on BiPAP HEENT: NCAT.?[place]. Oral mucosa is moist. Patent Nares NECK: Supple, nontender, no thyromegaly, no meningismus, no JVD, no step offs CHEST: Symmetrical, atraumatic, and with equal expansion, Nontender on palpation no deformity and no crepitus. CARDIOVASCULAR: RRR, no m/g/r LUNGS: CTAB, no w/r/r. Symmetrical chest rise. No intercostal subcostal retraction. ABDOMEN: Soft, flat, nontender. No guarding/rebound tenderness/masses. +BS EXTREMITIES: Nontender.? Trace edema bilaterally. BL chronic stasis dermatitis SKIN: Warm and dry, no jaundice. Multiple diffuse skin abrasions throughout. MSK: No lumbar or midline, no CVA, no paraspinal muscle spasm or tenderness. Neuropsych: Drowsy, oriented x 3,?No focal neurologic deficits. Discharge Plan Plan Patient Disposition: HOME (Self Care) Disposition Comment: Back to baseline Patient condition on transfer: Stable Prescriptions/Referrals Prescriptions/Med Rec: New furosemide 40 mg tablet 40 mg PO BID 30 Days Qty: 60 0RF azithromycin 500 mg tablet 500 mg PO QDAY 2 Days Qty: 2 0RF methylprednisolone [Medrol (Agus)] 4 mg tablets,dose pack 4 mg PO QDAY 7 Days Qty: 7 0RF dapagliflozin propanediol [Farxiga] 5 mg tablet 5 mg PO QAM 30 Days Qty: 30 0RF eplerenone 25 mg tablet 25 mg PO QDAY 30 Days Qty: 30 0RF Continued tiotropium-olodaterol 2.5-2.5 mcg/actuation mist 2 puff inhalation QDAY Qty: 4 0RF albuterol sulfate 90 mcg/actuation aerosol powdr breath activated 2 inh inhalation Q6H PRN (Reason: shortness of breath or wheezing) Qty: 1 3RF Referrals: No Primary/Family,Physician [Primary Care Provider] - Patient/Caregiver Discharge Instructions Meds to Beds: Yes Discharge Activity: resume usual activities Print Language: Bangladeshi Stand Alone Forms: [facility] Award Info., Patient Portal Info Letter Discharge Order Discharge Orders: Discharge (Routine); Ordered 09/30/24 Ordered By: Sam Bowers Quality Discharge Quality Measures VTE prophylaxis Attestestation Attestation I reviewed labs, imaging, EKG, home medications and prior available records. Face to face evaluation was performed by me. I have personally examined the patient and discussed assessment and plan with the IM team. I reviewed the resident note and agree with the plan with exceptions as below. Patient is a 64-year-old male with history of CHF and COPD who presented with a chief complaint of altered mental status and shortness of breath. He was found to have acute hypoxic respiratory failure in the setting of CHF versus COPD exacerbation. Altered mental status: Resolved. In setting of hypercapnia and hypoxia. He was on oxy mask this morning. Continue CPAP at night. Patient mentioned that he has a CPAP machine at nighttime that got recently. Management of the underlying conditions as below. Acute respiratory failure with hypercapnia: Likely secondary to COPD exacerbation. Continue home inhalers. Continue CPAP at night. Avoid tobacco use. Acute respiratory failure with hypoxia: Likely secondary to mild pulmonary edema from CHF exacerbation. Started IV diuresis. Will discharge on p.o. Lasix 40 mg twice daily. Outpatient follow-up with cardiology. Non-STEMI: Likely demand ischemia in the setting of hypoxia and CHF exacerbation. Troponin peaked. Management as above. Time spent is 40 minutes. More than 50% of the time was spent on patient education and coordination of care.
== END 2024-09-30 13:20 | disposition home or self-care (01) | DRG 190 ==
LOC: SERX 08:34 → SERHOLD 14:08 → S2NX 16:00
PROVIDERS: Emergency Medicine; Admitting Provider Student in an Organized Health Care Education/Training Program; Emergency Provider Emergency Medicine; Visit Provider Student in an Organized Health Care Education/Training Program
DX: J44.1 Chronic obstructive pulmonary disease with (acute) exacerbation (principal); I21.A1 Myocardial infarction type 2; J96.01 Acute respiratory failure with hypoxia; J96.02 Acute respiratory failure with hypercapnia; I50.33 Acute on chronic diastolic (congestive) heart failure; I11.0 Hypertensive heart disease with heart failure; R56.9 Unspecified convulsions; I48.91 Unspecified atrial fibrillation; E78.5 Hyperlipidemia, unspecified; D69.6 Thrombocytopenia, unspecified; D50.9 Iron deficiency anemia, unspecified; D53.9 Nutritional anemia, unspecified; F17.210 Nicotine dependence, cigarettes, uncomplicated; Z99.81 Dependence on supplemental oxygen
CPT/HCPCS: 36415; 36600; 71045; 80053; 80061; 80320; 81001; 82803; 83036; 83690; 83735; 83880; 84100; 84484; 85025; 87400; 87811; 93005; 93306; 94640; 94660; 94667; 96374; 96375; 96376; 97162; 99291; A9270; J0456; J1643; J1940; J2470; J2919; J3420; J7050; J8499; G0480; J1644

== ENCOUNTER 2024-10-02 22:35 | Inpatient (IN) | payer MEDICARE, MEDICAID, SELFPAY ==
[2024-10-02] VITALS (13 sets, daily range): BP systolic 114–190; BP diastolic 67–110; PULSE 84–99; RESP 15–60; TEMP 36.3; O2SAT 91–100; BMI 30.5
--- NOTE | 2024-10-02 22:40 | EDNOTE_ITS ---
Altered Mental Status RME/HPI General Chief Complaint: Altered Mental Status Stated Complaint: ALTERED Time Seen by Provider: 10/02/24 22:53 Arrival date/time: 10/02/24 22:35 RME / HPI RME / HPI narrative: Dr. Rao's Main ED Evaluation: 64yo male with pmhx seizure, A-fib, HTN, HFpEF 55-60% 08/2024, COPD on 3L BIBA from home presents to the ED for a chief complaint of altered mental status. LKWT 0900. Per EMS, patient's roommate called due to the patient being altered . EMS notes the patient's GCS being 13. Patient was found to be saturating in the 70s on room air. Full ROS is unobtainable due to the patient's AMS. Related Data Previous Rx's ?Medication ?Instructions ?Recorded albuterol sulfate 90 mcg/actuation 2 inh inhalation Q6H PRN shortness 09/20/24 breath activated powder inhaler of breath or wheezing #1 ea tiotropium 2.5 mcg-olodaterol 2.5 2 puff inhalation QDAY #4 grams 09/20/24 mcg/actuation mist for inhalation dapagliflozin propanediol 5 mg 5 mg PO QAM 1 month #30 tabs 09/30/24 tablet (Farxiga) eplerenone 25 mg tablet 25 mg PO QDAY 1 month #30 tabs 09/30/24 furosemide 40 mg tablet 40 mg PO BID 1 month #60 tabs 09/30/24 methylprednisolone 4 mg tablets in 4 mg PO QDAY 1 week #7 tabs 09/30/24 a dose pack (Medrol (Agus)) Allergies Allergy/AdvReac Type Severity Reaction Status Date / Time No Known Allergies Allergy Verified 09/15/24 12:27 Review of Systems Review of Systems ROS Unobtainable: unobtainable due to mental status ED Exam Narrative Physical exam: Patient in a gown laying flat on the stretcher. General General appearance: Present alert and other (appears disheveled; can say some words) Head Head exam: Present atraumatic and normocephalic Eye Eye exam: Present normal appearance; Absent scleral icterus ENT ENT exam: Present normal exam and mucous membranes moist Neck Neck exam: Present normal inspection and other (No obvious JVD) Chest Chest inspection: Present normal inspection Respiratory Respiratory exam: Present accessory muscle use and other (poor air movement R>L) Cardiovascular Cardiovascular exam: Present regular rate and normal rhythm Abdominal Exam Abdominal exam: Present soft and other (large; has some abdominal breathing) Extremities Exam Extremities exam: Present normal inspection, full ROM and other (has chronic vascular changes to the BLE); Absent pedal edema Back Exam Back exam: Present normal inspection and full ROM Neurological Exam Neurological exam: Present alert and other (Moving extremities spontaneously) Psychiatric Psychiatric exam: Present normal affect and normal mood Skin Skin exam: Present warm, dry, intact and erythema (Chronic vascular changes with erythema on the anterior shins); Absent cyanosis, diaphoresis, pallor or mottled Course Course Course Narrative: 2249: Patient has a BP of 156/67 with a HR of 90. Patient is placed on BiPaP. 2314: Patient intubated due to continuing to saturate in the 70s. CXR is ordered for post intubation. Quality Measures none Orders Category Date Time Status 24 HR Medical Restraints Q2HR Care 10/02/24 23:17 Active Bedside COVID-19 Antigen Test NOW Care 10/03/24 00:36 Active Silk Screen Printer Q4H START 00 Care 10/02/24 22:42 Active Insert IV NOW Care 10/02/24 22:42 Active Insert NG / OG tube NOW Care 10/02/24 23:17 Active Intubation NOW Care 10/02/24 23:11 Completed Strict Intake and Output Routine Care 10/02/24 22:42 Ordered Urinary Catheter QS Care 10/02/24 22:[address] head/brain wo con Stat Exams 10/02/24 23:17 Taken CXR [XR chest 1V post procedure] Stat Exams 10/02/24 23:18 Completed XR chest 1V post procedure Stat Exams 10/03/24 00:31 Taken ABG [Arterial Blood Gas] Routine Lab 10/03/24 00:21 Completed ABG [Arterial Blood Gas] Stat Lab 10/02/24 22:44 Completed Blood Culture (Lab) Stat Lab 10/02/24 23:04 Received CBC Stat Lab 10/02/24 23:09 Completed Comprehensive Metabolic Panel Stat Lab 10/02/24 23:09 Completed Creatine Kinase Stat Lab 10/02/24 23:09 Completed D-Dimer Stat Lab 10/02/24 23:09 Completed Lactate (Lactic Acid) Stat Lab 10/02/24 23:09 Completed Partial Thromboplastin Time Stat Lab 10/02/24 23:09 Completed Procalcitonin Stat Lab 10/02/24 23:09 Completed Prothrombin Time with INR Stat Lab 10/02/24 23:09 Completed Sputum Culture and Gram Stain Stat Lab 10/02/24 23:32 Received Troponin I Stat Lab 10/02/24 23:09 Completed Urinalysis Stat Lab 10/02/24 22:57 Completed Urine Culture Stat Lab 10/02/24 22:57 Received Albuterol/Ipratr Rt Marita [Duoneb Rt Marita] Med 10/02/24 22:46 Discontinued 3 ml INH X1 ONE Albuterol/Ipratr Rt Marita [Duoneb Rt Marita] Med 10/02/24 22:43 Discontinued 6 ml .ROUTE .STK-MED ONE Etomidate Inj [Amidate Inj] Med 10/02/24 23:00 Discontinued 20 mg .ROUTE .STK-MED ONE Etomidate Inj [Amidate Inj] Med 10/02/24 23:03 Discontinued 20 mg IVP X1 ONE Furosemide Inj [Lasix Inj] Med 10/02/24 22:48 Discontinued 40 mg IVP X1 ONE MethylPREDNISolone.* [SoluMEDROL Inj] Med 10/02/24 22:50 Discontinued 125 mg IVP X1 ONE Propofol 1,000 mg Ivpb [Diprivan Ivpb] Med 10/02/24 23:03 Discontinued 1,000 mg in 100 ml IV 5 mcg/kg/min Sodium Chloride Rt Marita 10% [NS Rt Marita 10%] Med 10/02/24 23:11 Discontinued 5 ml INH X1 ONE Succinylcholine Inj [Anectine Inj] Med 10/02/24 23:00 Discontinued 200 mg .ROUTE .STK-MED ONE Succinylcholine Inj [Anectine Inj] Med 10/02/24 23:03 Discontinued 200 mg IV X1 ONE BiPAP / CPAP NOW RT 10/02/24 22:43 Active EKG (RT) Stat RT 10/02/24 22:42 Ordered Oxygen Delivery NOW RT 10/02/24 22:42 Active Sputum Induction PRN RT 10/02/24 23:15 Ordered Reevaluation(s) Reevaluation #1: Patient appears much more comfortable on BiPAP. Time: 22:52 Vital Signs Vital signs: Vital Signs Pulse Rate 93 10/02/24 22:40 Respiratory Rate 35 H 10/02/24 22:40 Pulse Oximetry (%) 100 10/02/24 22:40 Fraction of Inspired Oxygen 30 10/02/24 22:40 Procedures -ED Intubation Time out performed: Yes sedative: Etomidate Mg Given: 20 paralytic: Succinylcholine Mg Given: 200 Laryngoscope: fiber optic video scope Assist Device Used: fiber optic device ET Tube Size: 7.5 ET Tube Uncuffed: No Tube Secured Depth (cm): 22 Tube Secured Location: lips Tube Placement Confirmation: visualized tube passing through cords, equal breath sounds bilaterally, no breath sounds over epigastrium and confirmation by capnometry Patient Tolerated Procedure: well and no complications Intubation Complications: none and other Additional Comments: ET tube removed 1 cm down. Difficult to see on the initial chest x-ray. NO PTX Altered Mental Status Patient data External records reviewed:: [facility] previous records Clinical information provided by:: EMS Social determinants that could affect healthcare access:: none Patient has the following chronic illnesses:: seizure, A-fib, HTN, HFpEF 55-60% 08/2024, COPD on 3 L home How is presenting disease/condition affected by chronic disease/condition?: exacerbated by Evaluation data The following diagnostics were reviewed and interpreted by me:: lab results, radiology exam(s) and EKG tracing(s) Lab and/or radiology exams considered but not ordered:: none Interpretation Summary: CXR is negative for pneumothorax or pneumonia, ET tube is in good placement, according to my interpretation. EKG done at 2252, NSR, rate of 90, PVCs, poor R wave progression, QTc: 402, no STEMI, according to my interpretation. --------- [facility] Report Signed Patient: LELAND GUTHRIE [facility]. Record#: [id number] Birthdate: 1960 Age/Sex: 64 / M Location: [facility] Attending Dr: Ordering Physician: Karyna Su MD Date of Service: 10/02/24 Procedure(s): XR chest 1V post procedure Accession Number(s): [id number] cc: Thanh Kevin MD; NO PRIMARY/FAMILY,PHYSICIAN; Karyna Su MD~ Examination: AP chest single view Technique one AP portable supine chest single view Exam date and time: October 02, 2024 11:20 PM Comparison September 07, 2024, September 28, 2024 Indications: Hypoxic respiratory failure postintubation Findings: Normal heart size Mild left pleural disease Tracheal tube tip 6.1 cm above tamera No pneumothorax Mild to moderate vascular congestion Impression: Mild to moderate vascular congestion Dictated By: Thanh Kevni MD Signed By: <Electronically signed by Thanh Kevin MD in [place]> 10/03/24 0005 Medications / Prescriptions Medications or Prescriptions considered but not ordered:: none Medication administrations:: Medication Administration History Albuterol/Ipratropium (Albuterol/Ipratropium (Duoneb) Rt Marita 3 Ml Nebu) 3 ml INH Q6HRRT FREDIS Stop: 11/02/24 06:59 Albuterol/Ipratropium (Albuterol/Ipratropium (Duoneb) Rt Marita 3 Ml Nebu) 3 ml INH Q4HRRT PRN PRN Reason: wheezing Stop: 11/02/24 02:59 Heparin Sodium (Porcine) (Heparin Sod Inj 5000 Unit/Ml Vial) 5,000 unit SC Q12HR FREDIS Stop: 10/17/24 08:59 Propofol (Diprivan Ivpb) 1,000 mg in 100 mls @ 3.062 mls/hr IV .Q24H PRN; Protocol PRN Reason: PER PROTOCOL Stop: 11/01/24 23:02 Last Titration: 10/03/24 05:00 Dose: 5 mcg/kg/min, 3.062 mls/hr Documented By: Titration: 10/03/24 04:30 Dose: 10 mcg/kg/min, 6.123 mls/hr Documented By: Titration: 10/03/24 04:00 Dose: 15 mcg/kg/min, 9.185 mls/hr Documented By: Titration: 10/03/24 03:25 Dose: 20 mcg/kg/min, 12.247 mls/hr Documented By: Titration: 10/03/24 03:00 Dose: 20 mcg/kg/min, 12.247 mls/hr Documented By: Admin: 10/03/24 02:10 Dose: 20 mcg/kg/min, 12.247 mls/hr Documented By: ARTIE Co-signed By: EE Influenza Virus Vaccine Quadrival (Influenza Virus Quadrivalent 0.5 Ml Syringe) 0.5 ml IMi .ONCE ONE Stop: 10/04/24 09:01 Methylprednisolone Sodium Succinate (Methylprednisolone Sod Succ 40 Mg Vial) 60 mg IVP QDAY [facility] [place] Stop: 10/10/24 08:59 Pantoprazole Sodium (Pantoprazole Inj 40 Mg Vial) 40 mg IVP QDAY FREDIS Stop: 11/02/24 08:59 Discontinued Medications Albuterol/Ipratropium (Albuterol/Ipratropium (Duoneb) Rt Marita 3 Ml Nebu) 3 ml INH X1 ONE Stop: 10/02/24 22:47 Last Admin: 10/02/24 23:38 Dose: 3 ml Documented By: FAYE Albuterol/Ipratropium (Albuterol/Ipratropium (Duoneb) Rt Marita 3 Ml Nebu) Confirm Administered Dose 6 ml .ROUTE .STK-MED ONE Stop: 10/02/24 22:44 Last Admin: 10/02/24 23:38 Dose: Not Given Documented By: FAYE Non-Admin Reason: Other, see note Enoxaparin Sodium (Enoxaparin Sod Inj 40 Mg/0.4 Ml Syringe) 40 mg SC QDAY [facility] [place] Stop: 10/17/24 08:59 Etomidate (Etomidate Inj 2 Mg/Ml Vial 10 Ml) 20 mg IVP X1 ONE Stop: 10/02/24 23:04 Last Admin: 10/02/24 23:14 Dose: 20 mg Documented By: ARTIE Etomidate (Etomidate Inj 2 Mg/Ml Vial 10 Ml) Confirm Administered Dose 20 mg .ROUTE .STK-MED ONE Stop: 10/02/24 23:01 Last Admin: 10/02/24 23:15 Dose: Not Given Documented By: ARTIE Non-Admin Reason: Duplicate Medication on eMAR Furosemide (Furosemide Inj 10 Mg/Ml 4ml Vial) 40 mg IVP X1 ONE Stop: 10/02/24 22:49 Last Admin: 10/02/24 22:54 Dose: 40 mg Documented By: ARTIE Propofol (Diprivan Ivpb) 1,000 mg in 100 mls @ 3.062 mls/hr IV .Q24H PRN; Protocol PRN Reason: PER PROTOCOL Stop: 11/01/24 23:02 Last Titration: 10/03/24 02:10 Dose: 0 mcg/kg/min, 0 mls/hr Documented By: Titration: 10/03/24 01:40 Dose: 20 mcg/kg/min, 12.247 mls/hr Documented By: Titration: 10/03/24 00:40 Dose: 20 mcg/kg/min, 12.247 mls/hr Documented By: Titration: 10/02/24 23:40 Dose: 20 mcg/kg/min, 12.247 mls/hr Documented By: Titration: 10/02/24 23:35 Dose: 15 mcg/kg/min, 9.185 mls/hr Documented By: Titration: 10/02/24 23:30 Dose: 10 mcg/kg/min, 6.123 mls/hr Documented By: Admin: 10/02/24 23:25 Dose: 5 mcg/kg/min, 3.062 mls/hr Documented By: ARTIE Co-signed By: PIPPA Methylprednisolone Sodium Succinate (Methylprednisolone Sod Succ 62.5 Mg/Ml 2ml Vial) 125 mg IVP X1 ONE Stop: 10/02/24 22:51 Last Admin: 10/02/24 22:54 Dose: 125 mg Documented By: ARTIE Sodium Chloride (Sodium Chloride Rt 10% 15 Ml Nebu) 5 ml INH X1 ONE Stop: 10/02/24 23:12 Last Admin: 10/03/24 04:21 Dose: Not Given Documented By: FAYE Non-Admin Reason: Other, see note Comments: sputum pending Succinylcholine Chloride (Succinylcholine Inj 20 Mg/Ml Vial 10 Ml) 200 mg IV X1 ONE Stop: 10/02/24 23:04 Last Admin: 10/02/24 23:14 Dose: 200 mg Documented By: ARTIE Succinylcholine Chloride (Succinylcholine Inj 20 Mg/Ml Vial 10 Ml) Confirm Administered Dose 200 mg .ROUTE .STK-MED ONE Stop: 10/02/24 23:01 Last Admin: 10/02/24 23:15 Dose: Not Given Documented By: ARTIE Non-Admin Reason: Duplicate Medication on eMAR as above Consultations Consultation(s) initiated? (list below): Yes Consultation #1 (Physician, Specialty, Details): Discussed case with [Dr. Scott] from Hospitalist service regarding admission. Discussed patients ED course, exam findings, labs, and radiology results. The Hospitalist [agrees] to accept the patient for admission. Time: 00:56 Diagnosis Differential diagnosis altered mental status: sepsis and other (COPD exacerbation, respiratory failure, UTI, AMS, electrolyte abnormality, dehydration) Most likely diagnosis given after review of the tests above:: see below Admission Indicated Admission indicated?: indicated Admission Request Was there a request for admission?: Yes Admission Attestation Admission request attestation: Discussed case with [] from Hospitalist service regarding admission. Discussed patients ED course, exam findings, labs, and radiology results. The Hospitalist [agrees,declines] to accept the patient for admission. Disposition Plan Disposition Plan: Admit Critical Care Time Critical Care Time Critical Care Time: Yes Total Critical Care Time (min.): 45 Attestation: The high probability of sudden, clinically significant deterioration in the patient?s condition required the highest level of my preparedness to intervene urgently. The services I provided to this patient were to treat and/or prevent clinically significant deterioration. Services included the following: chart data review, reviewing nursing notes and/or old charts, documentation time, [employer] sales consultant collaboration regarding findings and treatment options, medication orders and management, direct patient care, vital sign assessments and ordering, interpreting and reviewing diagnostic studies and lab tests. Aggregate critical care time includes only time during which I was engaged in work directly related to the patient?s care, as described above, whether at bedside or elsewhere in the Emergency Department. It did not include time spent performing other reported procedures or the services of residents, students, nurses or physician assistants. Discharge Plan Plan Patient Disposition: Admit Acute Care w/in Hospital Patient condition on transfer: Stable Problem List Clinical Impression: Acute on chronic respiratory failure with hypoxia and hypercapnia, History of COPD
[2024-10-02] MEDS: MethylPREDNISolone SOD SUCC 62.5 MG/ML 2ML VIAL 125 MG IVP (22:54)
[2024-10-02] MEDS: FUROSEMIDE INJ 10 MG/ML 4ML VIAL 40 MG IVP (22:54)
[2024-10-02 22:58] LABS: Base Excess 18 (-3-3); HCO3 55 mEq/L (20-26); Inspired Oxygen, FIO2 50 %; O2 Saturation 91 % (91-98); PCO2 161 mmHg (32.0-48.0); PO2 73 mmHg (83-108)
[2024-10-02 23:00] LABS: Allen Test Performed/OK; Puncture Site Right Radial; pH, Arterial 7.14 (7.35-7.45)
--- NOTE | 2024-10-02 23:03 | PC.NURSE ---
Decision to intubate at this time.
[2024-10-02] MEDS: ETOMIDATE INJ 2 MG/ML VIAL 10 ML 20 MG IVP (23:14)
[2024-10-02] MEDS: SUCCINYLCHOLINE INJ 20 MG/ML VIAL 10 ML 200 MG IV (23:14)
--- NOTE | 2024-10-02 23:17 | XR_ITS ---
Examination: CT brain head without contrast. 2-D sagittal coronal reconstructions Date and time of exam:October 03, 2024 0001 hrs. Comparison September 15, 2024 Indications: Altered mental status today, elevated pCO2, hypoxic respiratory failure CTDI: vol (mGy):66.40 DLP: (mGycm):1467 Technique: Multiple CT axial sections of the brain have been obtained, 5 mm slice thickness. Contrast has not been administered. 2-D sagittal, coronal reconstructions have been obtained Low dose protocols were performed. One or more of the following dose reduction techniques were used; automated exposure control, adjustment of the mA and/or KV according to patient size, use of iterative reconstruction technique. Findings: No significant ventricular enlargement. Intra-axial or extra-axial hemorrhage density is not seen. No mass effect or midline shift Basal cisterns are not remarkable. Fourth ventricle is midline. Cranial vault intact. Impression: Negative for acute hemorrhage, mass effect or midline shift
[2024-10-02 23:18] LABS: Collection Type, Urine Catheter
[2024-10-02 23:18] LABS: Lactate (Lactic Acid) 0.7 mMol/L (0.4-2.0)
--- NOTE | 2024-10-02 23:18 | XR_ITS ---
Examination: AP chest single view Technique one AP portable supine chest single view Exam date and time: October 02, 2024 11:20 PM Comparison September 07, 2024, September 28, 2024 Indications: Hypoxic respiratory failure postintubation Findings: Normal heart size Mild left pleural disease Tracheal tube tip 6.1 cm above tamera No pneumothorax Mild to moderate vascular congestion Impression: Mild to moderate vascular congestion
[2024-10-02 23:21] LABS: Basophils % (Auto) 0 % (0-2.5); Eosinophils % (Auto) 0 % (0-10); Hematocrit 48.7 % (41.0-53.0); Hemoglobin 14.1 g/dL (13.5-16.0); Immature Granulocytes % (Auto) 1 % (0-0); Immature Granulocytes Auto 0.09 Thou/mm3 (0.00-0.00); Lymphocytes # (Auto) 0.3 Thou/mm3 (1.0-4.8); Lymphocytes % (Auto) 5 % (10-50); Mean Corpuscular Hemoglobin 30.9 pg (25.0-35.0); Mean Corpuscular Volume 107 fL (80-100); Monocytes # (Auto) 0.5 Thou/mm3 (0.0-0.8); Monocytes % (Auto) 7 % (0-12); Neutrophils # (Auto) 6.1 Thou/mm3 (1.8-7.7); Neutrophils % (Auto) 86 % (37-80); Nucleated Red Blood Cell % 0 /100 WBC (0); RDW Standard Deviation 57.6 fL (35.1-43.9); Red Blood Count 4.57 Miln/mm3 (4.50-5.90); White Blood Count 7.1 Thou/mm3 (3.8-10.6)
[2024-10-02 23:22] LABS: Platelet Count 78 Thou/mm3 (140-440)
[2024-10-02 23:23] LABS: Slide Review Platelets confirmed
[2024-10-02 23:24] LABS: Bilirubin,Urine Negative (Negative); Blood,Urine Negative (Negative); Clarity,Urine Clear (Clear/Hazy); Color,Urine Lt-Yellow (Lt Yel-Yel); Glucose, Urine Negative (Negative); Ketones,Urine Negative (Negative); Leukocyte Esterase,Urine Negative (Negative); Nitrite,Urine Negative (Negative); Protein,Urine 1+ (Neg - Trace); RBC,Urine 3 /hpf (0-3); Specific Gravity,Urine 1.016 (1.001-1.035); Squamous Epithelial Cell,Urine < 1 /hpf (0-5); Urobilinogen,Urine Negative mg/dL (0.0-1.0); WBC,Urine < 1 /hpf (0-5)
[2024-10-02] MEDS: PROPOFOL 1,000 MG IVPB 1,000 MG/100 ML VIAL 3.062 MG IV (23:25)
[2024-10-02 23:38] LABS: Partial Thromboplastin Time 23.4 Seconds (22.0-36.0); Prothrombin Time 10.9 Seconds (9.0-12.2)
[2024-10-02] MEDS: ALBUTEROL/IPRATROPIUM (Duoneb) RT SOL 3 ML NEBU INH (23:38)
--- NOTE | 2024-10-02 23:38 | PC.RT ---
sputum sent to lab
[2024-10-02 23:44] LABS: D-Dimer 1120 ng/mL (<600)
[2024-10-02 23:56] LABS: Alanine Aminotransferase 20 U/L (10-49); Albumin, Serum 4.6 gm/dL (3.4-4.8); Albumin/Globulin Ratio 1.7 (1.2-2.2); Alkaline Phosphatase 94 U/L (46-116); Anion Gap 9 (7-16); Aspartate Amino Transferase 19 U/L (0-34); BUN/Creatinine Ratio 44 Ratio (12-20); Bilirubin,Total 0.3 mg/dL (0.3-1.2); Blood Urea Nitrogen 31 mg/dL (9-23); Calcium 10.1 mg/dL (8.3-10.6); Calcium (Corrected) 10.1 mg/dL (8.5-10.1); Carbon Dioxide > 40.0 mMol/L (20.0-31.0); Chloride 91 mMol/L (98-107); Creatinine (Component) 0.7 mg/dL (0.6-1.3); Estimated Creatinine Clearance 131.8 mL/min (>60); Globulin 2.7 gm/dL (2.3-3.5); Glucose 140 mg/dL (74-106); Osmolality,Calculated 287 (275-295); Procalcitonin 0.17 ng/ml (0.0-0.49); Sodium 140 mMol/L (136-145); Total Protein 7.3 gm/dL (5.7-8.2); Troponin I 0.023 ng/mL (0.0-0.045); eGFR > 60 See Note
[2024-10-03] VITALS (34 sets, daily range): BP systolic 98–155; BP diastolic 52–77; PULSE 55–91; RESP 14–32; TEMP 36.4–37.7; O2SAT 87–99; BMI 28.7
--- NOTE | 2024-10-03 00:13 | PC.RT ---
pt taken to ct without any complications ett 24 at the gum secure in place, bilateral coarse bs auscultated
--- NOTE | 2024-10-03 00:26 | PC.NURSE ---
Pt taken to and from CT with RT and RN. Pt remained on cardiac nurse during entirety of exam.
--- NOTE | 2024-10-03 00:26 | PC.RT ---
sherrell sent to lab
[2024-10-03 00:30] LABS: Base Excess 24 (-3-3); HCO3 58 mEq/L (20-26); O2 Saturation 89 % (91-98); PCO2 111 mmHg (32.0-48.0); pH, Arterial 7.32 (7.35-7.45)
--- NOTE | 2024-10-03 00:31 | XR_ITS ---
Examination: AP chest single view Technique: AP portable supine chest single view Exam date and time: October 03, 2024 0051 hrs. Comparison October 02, 2024 Indications: Reposition endotracheal tube Findings: Endotracheal tube tip 4.2 cm above tamera Mild prominence left ventricle Moderate vascular congestion No lobar pneumonia Impression: Endotracheal tube tip 4.2 cm above tamera
[2024-10-03 00:33] LABS: PO2 56 mmHg (83-108)
[2024-10-03 00:34] LABS: Allen Test Performed/OK; Inspired Oxygen, FIO2 50 %; Puncture Site Left Radial
--- NOTE | 2024-10-03 00:44 | PC.NURSE ---
Spoke with pt's son Daniel on the phone to provide update on pt's condition.
--- NOTE | 2024-10-03 00:48 | PRELIM_ITS ---
CT scan of the head without intravenous contrast (axial sections with sagittal and coronal reformats) October 03, 2024 0001 hours Clinical history: 64-yo COPD elevated pCO2, altered mental status Home rison: CT of September 15, 2024.Findings:There is no evidence of intracranial hemorrhage, mass effect or midline shift. There are periventricular white matter hypodensities, compatible with chronic small vessel ischemia. There is mild volume loss. The calvarium is unremarkable. The mastoid air cells an d the visualized paranasal sinuses are clear.Impression:No evidence of intracranial hemorrhage, mass effect or midline shift.Periventricular chronic small vessel ischemia and volume loss.Aspect score 10 . Report Electronically Signed By: Fran Rendon 10/03/2024 12:48:09 AM [EST]
--- NOTE | 2024-10-03 01:17 | PC.RT ---
vent settings change per DR. Rust at this time tidal volume , RR26
--- NOTE | 2024-10-03 01:27 | PD.RESHP ---
Documentation for date of: 10/03/24 [facility] History of Present Illness Chief complaint: Altered Mental Status History of present illness: Patient is a 64-year-old male with past medical history significant for COPD on home O2, hypertension, hyperlipidemia, substance use, A-fib, seizures who was brought into the ED for altered mental status. Per patient's roommate, patient was seen altered after last well-known time of 9 AM, however patient refused to come to the ED. Per EMS, patient was GCS was 13 and saturating in the 70s on room air. Most of patient's history was obtained from ED note and chart review. Unable to obtain further history at this moment as patient is currently intubated. ED course: Patient presented with blood pressure 136/67, heart rate of 93, respiration rate 35 on oxy mask 15 L, FiO2 30% saturating 100%. However due to increase in respiration rate and worsening altered mental status and impending respiratory failure, patient was intubated in the ED. Patient was placed on initial ventilation settings with tidal volume of 400, respiration rate 18, approximately 8L/min. Labs significant for macrocytic anemia, low platelet count, elevated D-dimer, respiratory acidosis and acidemia. Pro-Dixon negative and UA negative for UTI. Lactic acid within normal limits.Head CT was negative for acute hemorrhage or midline shift. In the ED, patient was given IV Lasix x 1, methylprednisone 125 mg IV x 1, started on propofol after rapid sequence intubation. Patient be admitted to ICU for acute hypoxic and hypercapnic for respiratory failure requiring intubation. Review of Systems Review of Systems ROS Unobtainable: unobtainable due to mental status Exam Vital Signs Temp Pulse Resp BP Pulse Ox O2 Del Method O2 Flow Rate 97.4 F 78 20 124/73 93 L Mechanical Ventilation 15 10/02/24 22:55 10/03/24 00:40 10/03/24 00:40 10/03/24 00:40 10/03/24 00:40 10/03/24 00:40 10/02/24 22:46 FiO2 50 10/02/24 23:42 Narrative Exam Gen: Disheveled, ill-appearing. Intubated and sedated on mechanical ventilator. HEENT: NCAT, PERRLA, EOMI, dry mucous membranes, CVS: Normal S1 and S2. RRR. No M/R/G. Resp: Expiratory wheezing. No increased work of breathing. Abd: Soft, non-tender, non-distended. BS+ in all 4 quadrants. MSK: All 4 extremities intact. No edema or tender. Face has red macular squamous excoriations/eruptions appearing seborrheic dermatitis. BLE hyperpigmentation and woody appearance. Neuro: Unable to assess. Babinski negative bilaterally. Psych: Unable to assess d/t current endotracheal intubation. Results: Labs 10/02/24 23:09 10/02/24 23:09 Labs: Short CBC 10/02/24 Range/Units 23:09 WBC 7.1 (3.8-10.6) Thou/mm3 Hgb 14.1 (13.5-16.0) g/dL Hct 48.7 (41.0-53.0) % Plt Count 78 L D (140-440) Thou/mm3 BMP 10/02/24 23:09 Sodium 140 Potassium 5.0 D Chloride 91 L Carbon Dioxide > 40.0 H BUN 31 H Creatinine 0.7 Glucose 140 H Calcium 10.1 Cardiac Enzymes 10/02/24 Range/Units 23:09 Troponin I 0.023 (0.0-0.045) ng/mL Liver Function 10/02/24 Range/Units 23:09 Total Bilirubin 0.3 (0.3-1.2) mg/dL AST 19 (0-34) U/L ALT 20 (10-49) U/L Alkaline Phosphatase 94 D (46-116) U/L Albumin 4.6 (3.4-4.8) gm/dL Urine 10/02/24 Range/Units 22:57 Urine Color Lt-Yellow (Lt Yel-Yel) Urine Clarity Clear (Clear/Hazy) Urine pH 6.0 (5.0-7.0) Ur Specific [place] 1.016 (1.001-1.035) Urine Protein 1+ A (Neg - Trace) Urine Glucose (UA) Negative (Negative) ABG Interpretation ABG results: 10/02/24 10/03/24 22:44 00:21 ABG pH 7.14 L* 7.32 L D ABG pCO2 161 H* 111 H* D ABG pO2 73 L 56 L* ABG HCO3 55 H 58 H ABG O2 Saturation 91 89 L ABG Base Excess 18 H 24 H Quality Measures Quality Measures none Medications Home Medications and Allergies Allergies Allergy/AdvReac Type Severity Reaction Status Date / Time No Known Allergies Allergy Verified 09/15/24 12:27 Visit Medications Propofol (Diprivan Ivpb) 1,000 mg in 100 mls @ 3.062 mls/hr IV .Q24H PRN; Protocol PRN Reason: PER PROTOCOL Stop: 11/01/24 23:02 Last Titration: 10/03/24 00:40 Dose: 20 mcg/kg/min, 12.247 mls/hr Discontinued Medications Albuterol/Ipratropium (Albuterol/Ipratropium (Duoneb) Rt Marita 3 Ml Nebu) 3 ml INH X1 ONE Stop: 10/02/24 22:47 Last Admin: 10/02/24 23:38 Dose: 3 ml Etomidate (Etomidate Inj 2 Mg/Ml Vial 10 Ml) 20 mg IVP X1 ONE Stop: 10/02/24 23:04 Last Admin: 10/02/24 23:14 Dose: 20 mg Furosemide (Furosemide Inj 10 Mg/Ml 4ml Vial) 40 mg IVP X1 ONE Stop: 10/02/24 22:49 Last Admin: 10/02/24 22:54 Dose: 40 mg Methylprednisolone Sodium Succinate (Methylprednisolone Sod Succ 62.5 Mg/Ml 2ml Vial) 125 mg IVP X1 ONE Stop: 10/02/24 22:51 Last Admin: 10/02/24 22:54 Dose: 125 mg Sodium Chloride (Sodium Chloride Rt 10% 15 Ml Nebu) 5 ml INH X1 ONE Stop: 10/02/24 23:12 Succinylcholine Chloride (Succinylcholine Inj 20 Mg/Ml Vial 10 Ml) 200 mg IV X1 ONE Stop: 10/02/24 23:04 Last Admin: 10/02/24 23:14 Dose: 200 mg Assessment & Plan Plan Patient is a 64-year-old male with past medical history significant for COPD on home O2, hypertension, hyperlipidemia, substance use, A-fib, seizures who was brought into the ED for altered mental status admitted to ICU for acute hypoxic and hypercapnic for respiratory failure requiring intubation. NEURO #Acute Encephalopathy #Sedation for Mechanical Ventilation DDx: in the setting of hypoxia, hypercapnia, and respiratory acidosis with underlying acute on chronic COPD exacerbation -On Propofol for sedation, RAAS goal -1 -Patient's vent settings currently increased from MV of 8L/min to 12L/min by increasing TV and RR -Repeat ABG for 03:00AM CARDIO #Peripheral vascular disease DDx: Physical exam findings of chronic stasis, D-dimer elevated at 1120 Bilateral distal pulses palpable but soft -Consider CT angio of the lower extremities or Doppler of the lower extremities #History of atrial fibrillation No hx of patient taking Eliquis recently, last prescription filled in May Continue to monitor on tele, and consider adding AC if CHADVaScore is elevated PULM #Acute Hypoxic Hypercapnic Respiratory Failure #Acute on Chronic COPD exacerbation DDx: Most likely secondary to untreated COPD vs GUICHO vs OHS Diagnostic test: CXR reveals hyperexpanded lungs with no infiltrates seen b/l. CBC unremarkable. Initial ABG showed pH 7.14, CO2 160, expiratory wheezing heard on PE -Current ventilation settings are RR 26, TV 500, PEEP 5. Will titrate down RR and try SBT if ABG improves -Given Methylprednisone 125 x 1 in the ED, and will start daily IV Methylprednisone 40mg and scheduled and PRN Duonebs GI/FEN-Stable -Continue with Protonix 40 IV daily. -Consider Trophic feeds via OG if clear for any discharge or drainage -Currently OG has 100cc output with blood-like particles RENAL #Metabolic Alkalosis DDx: Secondary to COPD and chronic carbon dioxide retention versus versus diuretic use Diagnostic test: ABG shows increased HCO3- -Continue to monitor AM labs -Continue to monitor serial ABGs to see if any improvement in alkalosis with improvement on CO2 retention HEME/ONC #Macrocytic Anemia-stable MCV 107 and hemoglobin 14.1 -Continue to monitor with daily labs ENDO No active issues ID No active issues MSK No active issues PSYCH No active issues Health Maintenance: DVT prophylaxis: Heparin SC GI prophylaxis: IV PPI Diet: NPO Yoder: Yes Lines: PIV Drips: Propofol Vent: Tidal volume 450, respiratory rate 26, PEEP 5.0 CODE STATUS: Full code Disposition: Admitted to ICU for AHHRF and AMS requiring intubation. Patient's plan of care discussed with my attending, Dr. Scott. Suzanna Gupta, PGY-2 Attending Provider Attestation/Addendum Pt was evaluated and plan formulated together with the housestaff team. I have reviewed the residents note above and agree with most of its content. Please refer to the residents note for additional details. S/P intubation. Monitor ABG and adjust the ventilator settings accordingly.
[2024-10-03 01:47] LABS: Creatine Kinase 28 U/L (34-171)
[2024-10-03] MEDS: PROPOFOL 1,000 MG IVPB 1,000 MG/100 ML VIAL 12.247 MG IV (02:10)
[2024-10-03 02:54] LABS: Amphetamine/Methamp Scrn,U Negative (Negative); Barbiturate Screen,Urine Negative (Negative); Benzodiazepines Screen,Urine Negative (Negative); Benzoylecgonine Screen, Ur Negative (Negative); Fentanyl Screen,Urine Negative (Negative); Opiate Screen,Urine Negative (Negative); THC Screen,Urine Negative (Negative)
[2024-10-03 03:15] LABS: Base Excess 28 (-3-3); HCO3 54 mEq/L (20-26); O2 Saturation 95 % (91-98); PCO2 56 mmHg (32.0-48.0); PO2 84 mmHg (83-108)
[2024-10-03 03:16] LABS: Inspired Oxygen, FIO2 50 %; Puncture Site Right Radial
[2024-10-03 03:17] LABS: Allen Test Performed/OK
--- NOTE | 2024-10-03 03:37 | PC.RT ---
pt tranfered without complications fio2 titrated to 30%.
[2024-10-03 04:34] LABS: Base Excess 28 (-3-3); HCO3 57 mEq/L (20-26); Inspired Oxygen, FIO2 30 %; O2 Saturation 84 % (91-98); PCO2 73 mmHg (32.0-48.0)
[2024-10-03 04:52] LABS: Allen Test Performed/OK; Puncture Site Left Radial
[2024-10-03 04:53] LABS: PO2 39 mmHg (83-108)
[2024-10-03 05:34] LABS: Basophils % (Auto) 0 % (0-2.5); Eosinophils % (Auto) 0 % (0-10); Hematocrit 44.9 % (41.0-53.0); Immature Granulocytes % (Auto) 1 % (0-0); Immature Granulocytes Auto 0.09 Thou/mm3 (0.00-0.00); Lymphocytes # (Auto) 0.2 Thou/mm3 (1.0-4.8); Lymphocytes % (Auto) 3 % (10-50); Mean Corpuscular Hemoglobin 30.4 pg (25.0-35.0); Mean Corpuscular Volume 105 fL (80-100); Monocytes # (Auto) 0.4 Thou/mm3 (0.0-0.8); Monocytes % (Auto) 5 % (0-12); Neutrophils # (Auto) 6.4 Thou/mm3 (1.8-7.7); Neutrophils % (Auto) 90 % (37-80); Nucleated Red Blood Cell % 0 /100 WBC (0); RDW Standard Deviation 56.1 fL (35.1-43.9); Red Blood Count 4.28 Miln/mm3 (4.50-5.90)
[2024-10-03 05:36] LABS: Platelet Count 78 Thou/mm3 (140-440)
[2024-10-03 05:37] LABS: Slide Review Platelets confirmed
[2024-10-03 06:09] LABS: Alanine Aminotransferase 14 U/L (10-49); Albumin, Serum 4.3 gm/dL (3.4-4.8); Albumin/Globulin Ratio 1.9 (1.2-2.2); Alkaline Phosphatase 82 U/L (46-116); Anion Gap 13 (7-16); Aspartate Amino Transferase 15 U/L (0-34); BUN/Creatinine Ratio 47 Ratio (12-20); Bilirubin,Total 0.6 mg/dL (0.3-1.2); Blood Urea Nitrogen 33 mg/dL (9-23); Calcium 9.8 mg/dL (8.3-10.6); Calcium (Corrected) 9.8 mg/dL (8.5-10.1); Carbon Dioxide > 40.0 mMol/L (20.0-31.0); Chloride 87 mMol/L (98-107); Creatinine (Component) 0.7 mg/dL (0.6-1.3); Estimated Creatinine Clearance 131.8 mL/min (>60); Globulin 2.3 gm/dL (2.3-3.5); Glucose 126 mg/dL (74-106); Magnesium 2.1 mg/dL (1.6-2.6); Osmolality,Calculated 288 (275-295); Potassium 4.5 mMol/L (3.4-5.1); Sodium 140 mMol/L (136-145); Total Protein 6.6 gm/dL (5.7-8.2); eGFR > 60 See Note
[2024-10-03] MEDS: PROPOFOL 1,000 MG IVPB 1,000 MG/100 ML VIAL 6.123 MG IV (08:21)
[2024-10-03] MEDS: PANTOPRAZOLE INJ 40 MG VIAL IVP (08:22)
[2024-10-03] MEDS: HEPARIN SOD INJ 5000 UNIT/ML VIAL SC ×2 (08:23→20:45)
[2024-10-03 08:47] LABS: Base Excess 26 (-3-3); HCO3 55 mEq/L (20-26); Inspired Oxygen, FIO2 30 %; O2 Saturation 88 % (91-98); PCO2 70 mmHg (32.0-48.0)
[2024-10-03 08:50] LABS: Allen Test Not Performed; PO2 47 mmHg (83-108); Puncture Site Right Radial
[2024-10-03] MEDS: ACETAzolaMIDE SOD 500 MG in SODIUM CHLORIDE 0.9% (P) 50 ML 100 MG IV (09:46)
--- NOTE | 2024-10-03 10:16 | ESPR_ITS ---
Documentation for date of: 10/03/24 Subjective Subjective Interval history: This is a 64-year-old male well-known to the service who presented to the ER overnight for shortness of breath. He was found to have acute hypercapnic respiratory failure and intubated. He was brought up to the ICU. His follow-up ABG showed overcorrection with a pH of 7.6 and ventilator adjustments were made. This morning he is sedated on propofol. Afebrile. Good urinary output. Critical Care Note Critical care time (min.): 45 Exam Vital Signs Temp Pulse Resp BP Pulse Ox O2 Del Method O2 Flow Rate 99.3 F 65 26 H 144/70 H 91 L Mechanical Ventilation 15 10/03/24 07:00 10/03/24 10:00 10/03/24 03:00 10/03/24 10:00 10/03/24 10:00 10/03/24 07:00 10/02/24 22:46 FiO2 30 10/03/24 09:12 Narrative Exam General-no acute distress, sedated, overweight HEENT-normocephalic, atraumatic, sclera icteric, oral mucosa is hydrated, ET tube and OG tube in place Chest-coarse breath sounds, diminished, heart rate regular rhythmic, no bruits murmurs, no increased work of breathing Abdomen-soft, nontender, bowel sounds present, no rebound or guarding Extremities-minimal edema, pulses palpable, no clubbing, no mottling Vent AC/VC Physical Exam Completion Physical Exam Complete?: Yes Objective - [employer] Labs 10/03/24 04:52 10/03/24 04:52 Labs: Laboratory Results - last 24 hr 10/02/24 10/02/24 10/02/24 22:44 22:57 23:09 WBC 7.1 RBC 4.57 Hgb 14.1 Hct 48.7 MCV 107 H MCH 30.9 MCHC 29.0 L RDW Std Deviation 57.6 H Plt Count 78 L D Neut % (Auto) 86 H Lymph % (Auto) 5 L [place] % (Auto) 7 Eos % (Auto) 0 Baso % (Auto) 0 Neut # (Auto) 6.1 Lymph # (Auto) 0.3 L [place] # (Auto) 0.5 Eos # (Auto) 0.0 Baso # (Auto) 0.0 Immature Gran # (Auto) 0.09 H Absolute Nucleated RBC 0.00 Immature Gran % 1 H Nucleated RBC % 0 PT 10.9 INR 1.0 APTT 23.4 D-Dimer 1120 H Puncture Site Right Radial ABG pH 7.14 L* ABG pCO2 161 H* ABG pO2 73 L ABG HCO3 55 H ABG O2 Saturation 91 ABG Base Excess 18 H FiO2 50 Sodium 140 Potassium 5.0 D Chloride 91 L Carbon Dioxide > 40.0 H Anion Gap 9 BUN 31 H Creatinine 0.7 Estim Creat Clear Calc 131.8 eGFR > 60 BUN/Creatinine Ratio 44 H Glucose 140 H Calculated Osmolality 287 Lactic Acid 0.7 Calcium 10.1 Corrected Calcium 10.1 Magnesium Total Bilirubin 0.3 AST 19 ALT 20 Alkaline Phosphatase 94 D Total Creatine Kinase 28 L Troponin I 0.023 Total Protein 7.3 Albumin 4.6 Globulin 2.7 Albumin/Globulin Ratio 1.7 Procalcitonin 0.17 Ur Collection Type Catheter Urine Color Lt-Yellow Urine Clarity Clear Urine pH 6.0 Ur Specific [place] 1.016 Urine Protein 1+ A Urine Glucose (UA) Negative Urine Ketones Negative Urine Blood Negative Urine Nitrite Negative Urine Bilirubin Negative Urine Urobilinogen (Auto) Negative Ur Leukocyte Esterase Negative Urine RBC 3 Urine WBC < 1 Ur Squamous Epith Cells < 1 Urine Bacteria None Urine Opiates Screen Urine Fentanyl Screen Ur Barbiturates Screen U Amphetamin/Meth Scrn U Benzodiazepines Scrn U Cocaine Metab Screen U Marijuana (THC) Screen Misc Test Result Platelets confirmed 10/03/24 10/03/24 10/03/24 00:21 01:49 03:11 WBC RBC Hgb Hct MCV MCH MCHC RDW Std Deviation Plt Count Neut % (Auto) Lymph % (Auto) [place] % (Auto) Eos % (Auto) Baso % (Auto) Neut # (Auto) Lymph # (Auto) [place] # (Auto) Eos # (Auto) Baso # (Auto) Immature Gran # (Auto) Absolute Nucleated RBC Immature Gran % Nucleated RBC % PT INR APTT D-Dimer Puncture Site Left Radial Right Radial ABG pH 7.32 L D 7.60 H D ABG pCO2 111 H* D 56 H D ABG pO2 56 L* 84 D ABG HCO3 58 H 54 H ABG O2 Saturation 89 L 95 ABG Base Excess 24 H 28 H FiO2 50 50 Sodium Potassium Chloride Carbon Dioxide Anion Gap BUN Creatinine Estim Creat Clear Calc eGFR BUN/Creatinine Ratio Glucose Calculated Osmolality Lactic Acid Calcium Corrected Calcium Magnesium Total Bilirubin AST ALT Alkaline Phosphatase Total Creatine Kinase Troponin I Total Protein Albumin Globulin Albumin/Globulin Ratio Procalcitonin Ur Collection Type Urine Color Urine Clarity Urine pH Ur Specific [place] Urine Protein Urine Glucose (UA) Urine Ketones Urine Blood Urine Nitrite Urine Bilirubin Urine Urobilinogen (Auto) Ur Leukocyte Esterase Urine RBC Urine WBC Ur Squamous Epith Cells Urine Bacteria Urine Opiates Screen Negative Urine Fentanyl Screen Negative Ur Barbiturates Screen Negative U Amphetamin/Meth Scrn Negative U Benzodiazepines Scrn Negative U Cocaine Metab Screen Negative U Marijuana (THC) Screen Negative Misc Test Result 10/03/24 10/03/24 10/03/24 04:23 04:52 08:32 WBC 7.0 RBC 4.28 L Hgb 13.0 L Hct 44.9 MCV 105 H MCH 30.4 MCHC 29.0 L RDW Std Deviation 56.1 H Plt Count 78 L Neut % (Auto) 90 H Lymph % (Auto) 3 L [place] % (Auto) 5 Eos % (Auto) 0 Baso % (Auto) 0 Neut # (Auto) 6.4 Lymph # (Auto) 0.2 L [place] # (Auto) 0.4 Eos # (Auto) 0.0 Baso # (Auto) 0.0 Immature Gran # (Auto) 0.09 H Absolute Nucleated RBC 0.00 Immature Gran % 1 H Nucleated RBC % 0 PT INR APTT D-Dimer Puncture Site Left Radial Right Radial ABG pH 7.50 H D 7.50 H ABG pCO2 73 H* D 70 H ABG pO2 39 L* D 47 L* ABG HCO3 57 H 55 H ABG O2 Saturation 84 L 88 L ABG Base Excess 28 H 26 H FiO2 30 30 Sodium 140 Potassium 4.5 D Chloride 87 L Carbon Dioxide > 40.0 H Anion Gap 13 BUN 33 H Creatinine 0.7 Estim Creat Clear Calc 131.8 eGFR > 60 BUN/Creatinine Ratio 47 H Glucose 126 H Calculated Osmolality 288 Lactic Acid Calcium 9.8 Corrected Calcium 9.8 Magnesium 2.1 Total Bilirubin 0.6 AST 15 ALT 14 Alkaline Phosphatase 82 Total Creatine Kinase Troponin I Total Protein 6.6 Albumin 4.3 Globulin 2.3 Albumin/Globulin Ratio 1.9 Procalcitonin Ur Collection Type Urine Color Urine Clarity Urine pH Ur Specific [place] Urine Protein Urine Glucose (UA) Urine Ketones Urine Blood Urine Nitrite Urine Bilirubin Urine Urobilinogen (Auto) Ur Leukocyte Esterase Urine RBC Urine WBC Ur Squamous Epith Cells Urine Bacteria Urine Opiates Screen Urine Fentanyl Screen Ur Barbiturates Screen U Amphetamin/Meth Scrn U Benzodiazepines Scrn U Cocaine Metab Screen U Marijuana (THC) Screen Misc Test Result Platelets confirmed Assessment & Plan Additional Plan Additional Plan: In summary this 64-year-old male admitted to the ICU with acute hypercapnic respiratory failure on mechanical ventilation a/p [employer] sedated CV HFpEF- on diuretics at home, recently DCd with lasix h/o AFib Resp Acute hypoxic/hypercapneic resp failure- intubated and on MV - fu with CXR and ABG COPD exacerbation- duonebs q4h and solumedrol - azithro added Renal Metabolic alkalosis- likely due to overshoot on the vent, adjustments made GI GI proph- PPI Endo DM- SSI Heme Thrombocytopenia- trending down over the last few days - unclear etiology - ? related to meds ID stable case d/w ICU team labs, imaging, records reviewed ~45ccmin required for eval, exam, review, intervention, dicussion and formulation of POC for this critically ill pt with acute /chronic resp failure intubated and on MV at high risk for further and ongoing decompensation Provider Notation Provider Notation: Although this document has been carefully reviewed, there may still be some phonetic and other typographical errors. These errors are purely grammatical due to imperfections in the software program and should not be construed in any way to compromise the substance of the patient's medical care during this visit. Thank you for the opportunity and privilege in assisting you with this patient's care and management.
--- NOTE | 2024-10-03 10:32 | PD.RESPRO ---
Documentation for date of: 10/03/24 Subjective Subjective Interval history: 10/03/2024; Patient seen and examined, hemodynamically stable, remains sedated and intubated for airway protection and severe COPD exacerbation, CBC shows stable Hgb 13, but significant drop in PLT count to 80, no signs of active bleed noted, continue to follow Hgb and platelet count. F/U CTA for elevated D-Dimer on admission, F/U ABG continues to show overcorrection, ABG noted for respiratory acidosis with metabolic acidosis, PH; 7.5, pCO2: 70, HCO3 55, ventilator was changed to CPAP PSV, and settings were adjusted, RR and TV were decreased, F/U repeat ABG. Patient was also given Acetazolomide 500mg x1, Continue patient on Methylprednisolone, increase Dounebs frequency to Q4hr, and start patient on Azithromycin. Started weaning sedation for a sedation holiday and SAT. Exam Vital Signs Temp Pulse Resp BP Pulse Ox O2 Del Method O2 Flow Rate 99.3 F 65 26 H 144/70 H 91 L Mechanical Ventilation 15 10/03/24 07:00 10/03/24 10:00 10/03/24 03:00 10/03/24 10:00 10/03/24 10:00 10/03/24 07:00 10/02/24 22:46 FiO2 30 10/03/24 09:12 Narrative Exam GEN: overweight, dishelved appearing, sedated and intubated. Neuro: Deferred due to sedation, but does open eyes to verbal stimuli. HEENT: NCAT, trachea midline, moist mucous membranes, ET tube, PO tube noted, diffuse crackles and wheezing heard bilaterally. CVS: RRR, S1S2 present, no M/R/G. No JVD Respi: Mechanically ventilated, b/l breath sounds heard, no wheezing/crackles. ABD: Soft, no grimace to palpation, bowel sounds present in all 4 quadrants. Skin: warm, dry and intact. Extremities: Scaling, erythema and 1+ pitting edema noted on BLE, diminished peripheral pulses. Objective Labs 10/03/24 04:52 10/03/24 04:52 Labs: Laboratory Results - last 24 hr 10/02/24 10/02/24 10/02/24 22:44 22:57 23:09 WBC 7.1 RBC 4.57 Hgb 14.1 Hct 48.7 MCV 107 H MCH 30.9 MCHC 29.0 L RDW Std Deviation 57.6 H Plt Count 78 L D Neut % (Auto) 86 H Lymph % (Auto) 5 L [place] % (Auto) 7 Eos % (Auto) 0 Baso % (Auto) 0 Neut # (Auto) 6.1 Lymph # (Auto) 0.3 L Eagle # (Auto) 0.5 Eos # (Auto) 0.0 Baso # (Auto) 0.0 Immature Gran # (Auto) 0.09 H Absolute Nucleated RBC 0.00 Immature Gran % 1 H Nucleated RBC % 0 PT 10.9 INR 1.0 APTT 23.4 D-Dimer 1120 H Puncture Site Right Radial ABG pH 7.14 L* ABG pCO2 161 H* ABG pO2 73 L ABG HCO3 55 H ABG O2 Saturation 91 ABG Base Excess 18 H FiO2 50 Sodium 140 Potassium 5.0 D Chloride 91 L Carbon Dioxide > 40.0 H Anion Gap 9 BUN 31 H Creatinine 0.7 Estim Creat Clear Calc 131.8 eGFR > 60 BUN/Creatinine Ratio 44 H Glucose 140 H Calculated Osmolality 287 Lactic Acid 0.7 Calcium 10.1 Corrected Calcium 10.1 Magnesium Total Bilirubin 0.3 AST 19 ALT 20 Alkaline Phosphatase 94 D Total Creatine Kinase 28 L Troponin I 0.023 Total Protein 7.3 Albumin 4.6 Globulin 2.7 Albumin/Globulin Ratio 1.7 Procalcitonin 0.17 Ur Collection Type Catheter Urine Color Lt-Yellow Urine Clarity Clear Urine pH 6.0 Ur Specific [place] 1.016 Urine Protein 1+ A Urine Glucose (UA) Negative Urine Ketones Negative Urine Blood Negative Urine Nitrite Negative Urine Bilirubin Negative Urine Urobilinogen (Auto) Negative Ur Leukocyte Esterase Negative Urine RBC 3 Urine WBC < 1 Ur Squamous Epith Cells < 1 Urine Bacteria None Urine Opiates Screen Urine Fentanyl Screen Ur Barbiturates Screen U Amphetamin/Meth Scrn U Benzodiazepines Scrn U Cocaine Metab Screen U Marijuana (THC) Screen Misc Test Result Platelets confirmed 10/03/24 10/03/24 10/03/24 00:21 01:49 03:11 WBC RBC Hgb Hct MCV MCH MCHC RDW Std Deviation Plt Count Neut % (Auto) Lymph % (Auto) [place] % (Auto) Eos % (Auto) Baso % (Auto) Neut # (Auto) Lymph # (Auto) Eagle # (Auto) Eos # (Auto) Baso # (Auto) Immature Gran # (Auto) Absolute Nucleated RBC Immature Gran % Nucleated RBC % PT INR APTT D-Dimer Puncture Site Left Radial Right Radial ABG pH 7.32 L D 7.60 H D ABG pCO2 111 H* D 56 H D ABG pO2 56 L* 84 D ABG HCO3 58 H 54 H ABG O2 Saturation 89 L 95 ABG Base Excess 24 H 28 H FiO2 50 50 Sodium Potassium Chloride Carbon Dioxide Anion Gap BUN Creatinine Estim Creat Clear Calc eGFR BUN/Creatinine Ratio Glucose Calculated Osmolality Lactic Acid Calcium Corrected Calcium Magnesium Total Bilirubin AST ALT Alkaline Phosphatase Total Creatine Kinase Troponin I Total Protein Albumin Globulin Albumin/Globulin Ratio Procalcitonin Ur Collection Type Urine Color Urine Clarity Urine pH Ur Specific [place] Urine Protein Urine Glucose (UA) Urine Ketones Urine Blood Urine Nitrite Urine Bilirubin Urine Urobilinogen (Auto) Ur Leukocyte Esterase Urine RBC Urine WBC Ur Squamous Epith Cells Urine Bacteria Urine Opiates Screen Negative Urine Fentanyl Screen Negative Ur Barbiturates Screen Negative U Amphetamin/Meth Scrn Negative U Benzodiazepines Scrn Negative U Cocaine Metab Screen Negative U Marijuana (THC) Screen Negative Misc Test Result 10/03/24 10/03/24 10/03/24 04:23 04:52 08:32 WBC 7.0 RBC 4.28 L Hgb 13.0 L Hct 44.9 MCV 105 H MCH 30.4 MCHC 29.0 L RDW Std Deviation 56.1 H Plt Count 78 L Neut % (Auto) 90 H Lymph % (Auto) 3 L [place] % (Auto) 5 Eos % (Auto) 0 Baso % (Auto) 0 Neut # (Auto) 6.4 Lymph # (Auto) 0.2 L [place] # (Auto) 0.4 Eos # (Auto) 0.0 Baso # (Auto) 0.0 Immature Gran # (Auto) 0.09 H Absolute Nucleated RBC 0.00 Immature Gran % 1 H Nucleated RBC % 0 PT INR APTT D-Dimer Puncture Site Left Radial Right Radial ABG pH 7.50 H D 7.50 H ABG pCO2 73 H* D 70 H ABG pO2 39 L* D 47 L* ABG HCO3 57 H 55 H ABG O2 Saturation 84 L 88 L ABG Base Excess 28 H 26 H FiO2 30 30 Sodium 140 Potassium 4.5 D Chloride 87 L Carbon Dioxide > 40.0 H Anion Gap 13 BUN 33 H Creatinine 0.7 Estim Creat Clear Calc 131.8 eGFR > 60 BUN/Creatinine Ratio 47 H Glucose 126 H Calculated Osmolality 288 Lactic Acid Calcium 9.8 Corrected Calcium 9.8 Magnesium 2.1 Total Bilirubin 0.6 AST 15 ALT 14 Alkaline Phosphatase 82 Total Creatine Kinase Troponin I Total Protein 6.6 Albumin 4.3 Globulin 2.3 Albumin/Globulin Ratio 1.9 Procalcitonin Ur Collection Type Urine Color Urine Clarity Urine pH Ur Specific [place] Urine Protein Urine Glucose (UA) Urine Ketones Urine Blood Urine Nitrite Urine Bilirubin Urine Urobilinogen (Auto) Ur Leukocyte Esterase Urine RBC Urine WBC Ur Squamous Epith Cells Urine Bacteria Urine Opiates Screen Urine Fentanyl Screen Ur Barbiturates Screen U Amphetamin/Meth Scrn U Benzodiazepines Scrn U Cocaine Metab Screen U Marijuana (THC) Screen Misc Test Result Platelets confirmed ABG Interpretation ABG results: 10/02/24 10/03/24 10/03/24 22:44 00:21 03:11 ABG pH 7.14 L* 7.32 L D 7.60 H D ABG pCO2 161 H* 111 H* D 56 H D ABG pO2 73 L 56 L* 84 D ABG HCO3 55 H 58 H 54 H ABG O2 Saturation 91 89 L 95 ABG Base Excess 18 H 24 H 28 H 10/03/24 10/03/24 04:23 08:32 ABG pH 7.50 H D 7.50 H ABG pCO2 73 H* D 70 H ABG pO2 39 L* D 47 L* ABG HCO3 57 H 55 H ABG O2 Saturation 84 L 88 L ABG Base Excess 28 H 26 H Quality Measures Quality Measures none Assessment & Plan Assessment Current Active Medications: Generic Name Dose Route Start Last Admin Trade Name Freq PRN Reason Stop Dose Admin Albuterol/Ipratropium 3 ml 10/03/24 02:08 Albuterol/Ipratropium (Duoneb) Rt Marita 3 Ml Nebu INH 11/02/24 02:59 Q4HRRT PRN wheezing Albuterol/Ipratropium 3 ml 10/03/24 11:00 Albuterol/Ipratropium (Duoneb) Rt Marita 3 Ml Nebu INH 11/02/24 10:59 Q4HRRT FREDIS Heparin Sodium (Porcine) 5,000 unit 10/03/24 09:00 10/03/24 08:23 Heparin Sod Inj 5000 Unit/Ml Vial SC 10/17/24 08:59 5,000 unit Q12HR FREDIS Administration Propofol 1,000 mg in 100 mls @ 3.062 mls/hr 10/03/24 02:02 10/03/24 09:52 Diprivan Ivpb IV 11/01/24 23:02 0 mcg/kg/min .Q24H PRN 0 mls/hr PER PROTOCOL Titration Protocol 5 MCG/KG/MIN Azithromycin 500 mg/ Sodium 250 mls @ 250 mls/hr 10/03/24 10:30 Chloride IV 10/08/24 10:29 QDAY FREDIS Influenza Virus Vaccine Quadrival 0.5 ml 10/04/24 09:00 Influenza Virus Quadrivalent 0.5 Ml Syringe IMi 10/04/24 09:01 .ONCE ONE Methylprednisolone Sodium Succinate 60 mg 10/03/24 09:00 10/03/24 08:23 Methylprednisolone Sod Succ 40 Mg Vial IVP 10/10/24 08:59 60 mg QDAY FREDIS Administration Pantoprazole Sodium 40 mg 10/03/24 09:00 10/03/24 08:22 Pantoprazole Inj 40 Mg Vial IVP 11/02/24 08:59 40 mg QDAY FREDIS Administration Plan 64-year-old male with past medical history significant for COPD on home O2, hypertension, hyperlipidemia, substance use, A-fib, seizures who was brought into the ED for altered mental status admitted to ICU for acute hypoxic and hypercapnic for respiratory failure requiring intubation. NEURO #Acute Encephalopathy In settings of hypercapnia and medication induced. Start sedation holiday and follow-up mental status. CARDIO #History of atrial fibrillation Patient's [id number] score is 2, patient was started previously on Eliquis but has not been prescribed since February indicating likely medication noncompliance. Patient rate controlled at the moment, will continue to monitor. Will have discussion with patient once alert. #Peripheral vascular disease DDx: Physical exam findings of chronic stasis, D-dimer elevated at 1120 Bilateral distal pulses palpable but soft Follow-up with CTA chest for elevated D-dimer ordered by ED to rule out PE. BLE changes are chronic and consistent with venous stasis. Pulses present bilaterally. If concern continues about arterial circulation, primary team may recommend outpatient Doppler/ CTA for lower extremities. PULM #Acute on chronic Hypoxic Hypercapnic Respiratory Failure #Acute COPD exacerbation DDx: Most likely secondary to untreated COPD vs GUICHO vs OHS Diagnostic test: CXR reveals hyperexpanded lungs with no infiltrates seen b/l. CBC unremarkable. Initial ABG showed pH 7.14, CO2 160, expiratory wheezing heard on PE Patient switched to CPAP PSV mode. Continue with Methylprednisolone, incease Dounebs to Q4Hr, and start patient on Azithromycin. Maintain saturation between 88-92%. F/U daily renal panel/ ABGs RENAL #Primary respiratory acidosis w Metabolic Alkalosis. #Overcorrection of Respiratory acidosis DDx: Secondary to COPD and chronic carbon dioxide retention versus versus diuretic use Ventilator settings adjusted. Patient given Acetazolamide 500mg x1 F/U renal panels F/U ABGs HEME/ONC #Acute Thrombocytopenia Patient's baseline Plt count around 120K but has been dropping for past week. Unlikely Heparin related as patient's plt count low on admission and has been on Heparin previously. PT/PTT wnl, no signs of DIC/TTP despite mild drop in Hgb. Will continue to monitor patient's CBC for resolution and order labs as warranted. #Macrocytic Anemia-stable MCV 107 and hemoglobin 14.1 Hemoglobin stable at around 13. No signs of active bleed, will continue to monitor Hgb levels and signs of bleeding. Recommend outpatient workup of macrocytic anemia. GI/FEN-Stable -Continue with Protonix 40 IV daily. -Consider Trophic feeds via OG if clear for any discharge or drainage ENDO No active issues ID No active issues MSK No active issues PSYCH No active issues Health Maintenance: DVT prophylaxis: Heparin SC GI prophylaxis: IV PPI Diet: NPO Yoder: Yes Lines: PIV Drips: Propofol Vent: Spont PS 10 CODE STATUS: Full code Disposition: Admitted to ICU for AHHRF and AMS requiring intubation. Plan of care discussed with attending Dr. Pepe.
[2024-10-03] MEDS: ALBUTEROL/IPRATROPIUM (Duoneb) RT SOL 3 ML NEBU INH ×4 (10:48→22:40)
[2024-10-03] MEDS: AZITHROMYCIN INJ 500 MG in SODIUM CHLORIDE 0.9% 250 ML 250 ML 250 MG IV (13:17)
[2024-10-03] MEDS: DEXMEDETOMIDINE 400 MCG IVPB 400 MCG/100 ML BAG IV (13:17)
--- NOTE | 2024-10-03 15:31 | PC.DIETICIAN ---
Nutrition prescription Vital 1.2 at 20 ml/hr via OG tube by pump. Advance 10 ml every 8 hrs to goal rate of 70 ml/hr x 24 hrs. If no IV fluids, water flushes of 25 ml/hr (or per MD).
--- NOTE | 2024-10-03 15:53 | PC.SS ---
Update: Patient is intubated/sedated. NG tube feedings to begin today. No skin issues. Patient receiving pressors.
[2024-10-03 17:05] LABS: Base Excess 16 (-3-3); HCO3 44 mEq/L (20-26); Inspired Oxygen, FIO2 30 %; O2 Saturation 85 % (91-98); PCO2 67 mmHg (32.0-48.0); pH, Arterial 7.43 (7.35-7.45)
[2024-10-03 17:10] LABS: Allen Test Performed/OK; PO2 47 mmHg (83-108); Puncture Site Right Radial
[2024-10-03] MEDS: DEXMEDETOMIDINE 400 MCG IVPB 400 MCG/100 ML BAG 9.61 MCG IV (22:28)
[2024-10-04] VITALS (22 sets, daily range): BP systolic 113–161; BP diastolic 57–140; PULSE 50–85; RESP 14–34; TEMP 36.6–37.1; O2SAT 57–100; BMI 28.6
[2024-10-04] MEDS: ALBUTEROL/IPRATROPIUM (Duoneb) RT SOL 3 ML NEBU INH ×6 (02:07→22:33)
[2024-10-04] MEDS: DEXMEDETOMIDINE 400 MCG IVPB 400 MCG/100 ML BAG 14.415 MCG IV (04:33)
[2024-10-04 04:38] LABS: Base Excess 15 (-3-3); HCO3 41 mEq/L (20-26); Inspired Oxygen, FIO2 30 %; O2 Saturation 89 % (91-98); PCO2 60 mmHg (32.0-48.0); pH, Arterial 7.45 (7.35-7.45)
[2024-10-04 04:50] LABS: Allen Test Performed/OK; PO2 57 mmHg (83-108); Puncture Site Right Radial
[2024-10-04 06:20] LABS: Basophils % (Auto) 0 % (0-2.5); Eosinophils % (Auto) 0 % (0-10); Hematocrit 39.7 % (41.0-53.0); Hemoglobin 12.3 g/dL (13.5-16.0); Immature Granulocytes % (Auto) 1 % (0-0); Immature Granulocytes Auto 0.06 Thou/mm3 (0.00-0.00); Lymphocytes # (Auto) 0.9 Thou/mm3 (1.0-4.8); Lymphocytes % (Auto) 14 % (10-50); Mean Corpuscular Hemoglobin 30.5 pg (25.0-35.0); Mean Corpuscular Volume 99 fL (80-100); Monocytes # (Auto) 0.5 Thou/mm3 (0.0-0.8); Monocytes % (Auto) 7 % (0-12); Neutrophils # (Auto) 4.9 Thou/mm3 (1.8-7.7); Neutrophils % (Auto) 78 % (37-80); Nucleated Red Blood Cell % 0 /100 WBC (0); Platelet Count 81 Thou/mm3 (140-440); Red Blood Count 4.03 Miln/mm3 (4.50-5.90); White Blood Count 6.3 Thou/mm3 (3.8-10.6)
[2024-10-04 06:58] LABS: Alanine Aminotransferase 11 U/L (10-49); Albumin/Globulin Ratio 1.8 (1.2-2.2); Alkaline Phosphatase 70 U/L (46-116); Anion Gap 6 (7-16); Aspartate Amino Transferase < 10 U/L (0-34); BUN/Creatinine Ratio 33 Ratio (12-20); Bilirubin,Total 0.4 mg/dL (0.3-1.2); Blood Urea Nitrogen 26 mg/dL (9-23); Calcium 9.6 mg/dL (8.3-10.6); Calcium (Corrected) 9.6 mg/dL (8.5-10.1); Carbon Dioxide 38.9 mMol/L (20.0-31.0); Chloride 92 mMol/L (98-107); Creatinine (Component) 0.8 mg/dL (0.6-1.3); Estimated Creatinine Clearance 112.1 mL/min (>60); Globulin 2.2 gm/dL (2.3-3.5); Glucose 151 mg/dL (74-106); Magnesium 2.1 mg/dL (1.6-2.6); Osmolality,Calculated 281 (275-295); Potassium 3.6 mMol/L (3.4-5.1); Sodium 137 mMol/L (136-145); Total Protein 6.2 gm/dL (5.7-8.2); eGFR > 60 See Note
--- NOTE | 2024-10-04 07:30 | XR_ITS ---
Examination: AP chest single view TECHNIQUE: AP upright portable chest single view Exam date and time: October 04, 2024 0831 hours Comparison September 28, 2024 INDICATIONS: Hypercapnic respiratory failure postintubation FINDINGS: Tracheal tube tip 3.9 cm above tamera Mild enlargement cardiac contour Prominent vascular congestion with findings suspicious for septal edema at the lung bases Pneumonia left base obscuring detail left hemidiaphragm Orogastric tube is in the stomach the tip is below the level of the film IMPRESSION: Endotracheal tube tip 3.9 cm above tamera Prominent vascular congestion Pneumonia left base
[2024-10-04] MEDS: HEPARIN SOD INJ 5000 UNIT/ML VIAL SC ×2 (10:16→20:06)
[2024-10-04] MEDS: AZITHROMYCIN INJ 500 MG in SODIUM CHLORIDE 0.9% 250 ML 250 ML 250 MG IV (10:16)
[2024-10-04] MEDS: PANTOPRAZOLE INJ 40 MG VIAL IVP (10:17)
[2024-10-04] MEDS: POTASSIUM CHLORIDE 20 mEq TABCR 40 MEQ PO (10:43)
--- NOTE | 2024-10-04 10:54 | PC.NURSE ---
Report given to JAY Chapman who jamel assume care of patient in room 367.
--- NOTE | 2024-10-04 11:20 | ESPR_ITS ---
Documentation for date of: 10/04/24 Subjective Subjective Interval history: 10/03/2024; Patient seen and examined, hemodynamically stable, remains sedated and intubated for airway protection and severe COPD exacerbation, CBC shows stable Hgb 13, but significant drop in PLT count to 80, no signs of active bleed noted, continue to follow Hgb and platelet count. F/U CTA for elevated D-Dimer on admission, F/U ABG continues to show overcorrection, ABG noted for respiratory acidosis with metabolic acidosis, PH; 7.5, pCO2: 70, HCO3 55, ventilator was changed to CPAP PSV, and settings were adjusted, RR and TV were decreased, F/U repeat ABG. Patient was also given Acetazolomide 500mg x1, Continue patient on Methylprednisolone, increase Dounebs frequency to Q4hr, and start patient on Azithromycin. Started weaning sedation for a sedation holiday and SAT. 10/04/2024; Patient was seen and examined by bedside, no acute overnight events reported, vitals stable, off sedation, sitting comfortably following command, breathing spontaneously with pressure support of 8, plan to extubate patient to Bi-Pap, CBC unremarkable, renal panel noted for HCO3 of 39, glucose 151, CXR shows vascular congestion with PNA at left base. Patient was extubated to Bi-pap and doing well, plan to monitor for a few hours after that will downgrade him to floor for continuation of care by hospitalist team. Continuing patient on Methylprednisolone, Duonebs, and Azithromycin. Exam Vital Signs Temp Pulse Resp BP Pulse Ox O2 Del Method O2 Flow Rate 97.8 F 84 34 H 131/66 H 91 L BiPAP 15 10/04/24 07:02 10/04/24 09:00 10/04/24 08:48 10/04/24 09:00 10/04/24 09:00 10/04/24 09:00 10/02/24 22:46 FiO2 30 10/04/24 09:00 Narrative Exam GEN: overweight, dishelved appearing, on Bi-pap. Neuro: AAO to name, place and date, CN II-XII grossly intact, sensation/ motor function intact in all 4 extremities. HEENT: NCAT, trachea midline, moist mucous membranes, PERRLA. CVS: RRR, S1/S2 present, no M/R/G. No JVD. Respi: On Bi-pap, b/l breath sounds heard, diffuse crackles and wheezing heard bilaterally. ABD: Soft, no grimace to palpation, bowel sounds present in all 4 quadrants. Skin: warm, dry and intact. Extremities: Scaling, erythema and 1+ pitting edema noted on BLE, diminished peripheral pulses. Objective Labs 10/04/24 06:03 10/04/24 06:03 Labs: Laboratory Results - last 24 hr 10/03/24 10/04/24 10/04/24 16:55 04:27 06:03 WBC 6.3 RBC 4.03 L Hgb 12.3 L Hct 39.7 L MCV 99 MCH 30.5 MCHC 31.0 RDW Std Deviation 52.0 H Plt Count 81 L Neut % (Auto) 78 Lymph % (Auto) 14 [place] % (Auto) 7 Eos % (Auto) 0 Baso % (Auto) 0 Neut # (Auto) 4.9 Lymph # (Auto) 0.9 L [place] # (Auto) 0.5 Eos # (Auto) 0.0 Baso # (Auto) 0.0 Immature Gran # (Auto) 0.06 H Absolute Nucleated RBC 0.00 Immature Gran % 1 H Nucleated RBC % 0 Puncture Site Right Radial Right Radial ABG pH 7.43 7.45 ABG pCO2 67 H 60 H ABG pO2 47 L* 57 L* ABG HCO3 44 H 41 H ABG O2 Saturation 85 L 89 L ABG Base Excess 16 H 15 H FiO2 30 30 Sodium 137 Potassium 3.6 D Chloride 92 L Carbon Dioxide 38.9 H Anion Gap 6 L BUN 26 H Creatinine 0.8 Estim Creat Clear Calc 112.1 eGFR > 60 BUN/Creatinine Ratio 33 H Glucose 151 H Calculated Osmolality 281 Calcium 9.6 Corrected Calcium 9.6 Magnesium 2.1 Total Bilirubin 0.4 AST < 10 ALT 11 Alkaline Phosphatase 70 Total Protein 6.2 Albumin 4.0 Globulin 2.2 L Albumin/Globulin Ratio 1.8 ABG Interpretation ABG results: 10/02/24 10/03/24 10/03/24 22:44 00:21 03:11 ABG pH 7.14 L* 7.32 L D 7.60 H D ABG pCO2 161 H* 111 H* D 56 H D ABG pO2 73 L 56 L* 84 D ABG HCO3 55 H 58 H 54 H ABG O2 Saturation 91 89 L 95 ABG Base Excess 18 H 24 H 28 H 10/03/24 10/03/24 10/03/24 04:23 08:32 16:55 ABG pH 7.50 H D 7.50 H 7.43 ABG pCO2 73 H* D 70 H 67 H ABG pO2 39 L* D 47 L* 47 L* ABG HCO3 57 H 55 H 44 H ABG O2 Saturation 84 L 88 L 85 L ABG Base Excess 28 H 26 H 16 H 10/04/24 04:27 ABG pH 7.45 ABG pCO2 60 H ABG pO2 57 L* ABG HCO3 41 H ABG O2 Saturation 89 L ABG Base Excess 15 H Quality Measures Quality Measures none Assessment & Plan Assessment Current Active Medications: Generic Name Dose Route Start Last Admin Trade Name Freq PRN Reason Stop Dose Admin Albuterol/Ipratropium 3 ml 10/03/24 02:08 Albuterol/Ipratropium (Duoneb) Rt Marita 3 Ml Nebu INH 11/02/24 02:59 Q4HRRT PRN wheezing Albuterol/Ipratropium 3 ml 10/03/24 11:00 10/04/24 06:42 Albuterol/Ipratropium (Duoneb) Rt Marita 3 Ml Nebu INH 11/02/24 10:59 3 ml Q4HRRT FREDIS Administration Heparin Sodium (Porcine) 5,000 unit 10/03/24 09:00 10/04/24 10:16 Heparin Sod Inj 5000 Unit/Ml Vial SC 10/17/24 08:59 5,000 unit Q12HR FREDIS Administration Azithromycin 500 mg/ Sodium 250 mls @ 250 mls/hr 10/03/24 10:30 10/04/24 10:16 Chloride IV 10/08/24 10:29 250 mls/hr QDAY FREDIS Administration Methylprednisolone Sodium Succinate 60 mg 10/03/24 09:00 10/04/24 10:17 Methylprednisolone Sod Succ 40 Mg Vial IVP 10/10/24 08:59 60 mg QDAY FREDIS Administration Pantoprazole Sodium 40 mg 10/03/24 09:00 10/04/24 10:17 Pantoprazole Inj 40 Mg Vial IVP 11/02/24 08:59 40 mg QDAY FREDIS Administration Plan 64-year-old male with past medical history significant for COPD on home O2, hypertension, hyperlipidemia, substance use, A-fib, seizures who was brought into the ED for altered mental status admitted to ICU for acute hypoxic and hypercapnic respiratory failure in setting of COPD exacerbation and Acute encephalopathy requiring intubation. 10/03/2024; Patient seen and examined, hemodynamically stable, remains sedated and intubated for airway protection and severe COPD exacerbation, CBC shows stable Hgb 13, but significant drop in PLT count to 80, no signs of active bleed noted, continue to follow Hgb and platelet count. F/U CTA for elevated D-Dimer on admission, F/U ABG continues to show overcorrection, ABG noted for respiratory acidosis with metabolic acidosis, PH; 7.5, pCO2: 70, HCO3 55, ventilator was changed to CPAP PSV, and settings were adjusted, RR and TV were decreased, F/U repeat ABG. Patient was also given Acetazolomide 500mg x1, Continue patient on Methylprednisolone, increase Dounebs frequency to Q4hr, and start patient on Azithromycin. Started weaning sedation for a sedation holiday and SAT. 10/04/2024; Patient was seen and examined by bedside, no acute overnight events reported, vitals stable, off sedation, sitting comfortably following command, breathing spontaneously with pressure support of 8, plan to extubate patient to Bi-Pap, CBC unremarkable, renal panel noted for HCO3 of 39, glucose 151, CXR shows vascular congestion with PNA at left base. Patient was extubated to Bi-pap and doing well, plan to monitor for a few hours after that will downgrade him to floor for continuation of care by hospitalist team. Continuing patient on Methylprednisolone, Duonebs, and Azithromycin. NEURO #Acute Encephalopathy----Resolved. In settings of hypercapnia and medication induced. CARDIO #History of atrial fibrillation Patient's [id number] score is 2, patient was started previously on Eliquis but has not been prescribed since February indicating likely medication noncompliance. Patient rate controlled at the moment, will continue to monitor. Will have discussion with patient once alert. #Peripheral vascular disease DDx: Physical exam findings of chronic stasis, D-dimer elevated at 1120 Bilateral distal pulses palpable but soft Follow-up with CTA chest for elevated D-dimer ordered by ED to rule out PE. BLE changes are chronic and consistent with venous stasis. Pulses present bilaterally. If concern continues about arterial circulation, primary team may recommend outpatient Doppler/ CTA for lower extremities. PULM #Acute on chronic Hypoxic Hypercapnic Respiratory Failure ---Resolved #Acute COPD exacerbation----Resolving DDx: Most likely secondary to untreated COPD vs GUICHO vs OHS Diagnostic test: CXR reveals hyperexpanded lungs with no infiltrates seen b/l. CBC unremarkable. Initial ABG showed pH 7.14, CO2 160, expiratory wheezing heard on PE Patient switched to CPAP PSV mode. Continue with Methylprednisolone, incease Dounebs to Q4Hr, and start patient on Azithromycin. Maintain saturation between 88-92%. F/U daily renal panel/ ABGs RENAL #Primary respiratory acidosis w Metabolic Alkalosis----Resolved #Overcorrection of Respiratory acidosis----Resolved. DDx: Secondary to COPD and chronic carbon dioxide retention versus versus diuretic use Ventilator settings adjusted. Patient given Acetazolamide 500mg x1 F/U renal panels F/U ABGs HEME/ONC #Acute Thrombocytopenia Patient's baseline Plt count around 120K but has been dropping for past week. Unlikely Heparin related as patient's plt count low on admission and has been on Heparin previously. PT/PTT wnl, no signs of DIC/TTP despite mild drop in Hgb. Will continue to monitor patient's CBC for resolution and order labs as warranted. #Macrocytic Anemia-stable MCV 107 and hemoglobin 14.1 Hemoglobin stable at around 13. No signs of active bleed, will continue to monitor Hgb levels and signs of bleeding. Recommend outpatient workup of macrocytic anemia. GI/FEN-Stable -Continue with Protonix 40 IV daily. -Patient started on regular diet. ENDO No active issues ID No active issues MSK No active issues PSYCH No active issues Health Maintenance: DVT prophylaxis: Heparin SC GI prophylaxis: IV PPI Diet: Regular diet. Lines: PIV CODE STATUS: Full code Disposition: Admitted to ICU for AHHRF and Acute encephalopathy in setting of COPD exacerbation Plan of care discussed with attending Dr. Pepe. Attending Provider Attestation/Addendum Patient seen and examined with resident. In brief this is 64-year-old male admitted to the ICU with acute hypercapnic respiratory failure. This morning he is doing much better. He is awake alert and following commands. There were no acute overnight events. On exam lung sounds are distant but clear, no crackles or wheezes auscultated, abdomen is obese soft and nontender. Lower extremities with chronic venous stasis changes. His ventilator was changed to PSV today which he tolerated well weaning parameters were obtained and he was successfully extubated to BiPAP. He can be weaned off of BiPAP in the next few hours. pt remained stable and was transferred to the floor. case d/w ICU team labs, imaging, records reviewed ~38ccmin required for eval, exam , review, intervention, discussion and formulation of POC for this critically ill pt with resp failure who was successfully liberated from the vent today
--- NOTE | 2024-10-04 15:58 | EVENTNT_ITS ---
<Statement entered by Gustavo Monique MD - 10/04/24 16:16> I saw and examined the patient, and I agree with current management stated by Dr Lanie LEWIS,PGY1. Plan of care was discussed with the attending physician and resident physician. Disclaimer: Despite multiple revisions, due to the dictation software being used, the document bellow may not be free of grammatical errors including phonetic/typographic errors. However, this does not deter from our commitment to providing health care in the patient's best interest in mind. Dr. Kayden MD, PGY 2 Documentation for date of: 10/04/24 Event Note Event Note: 64-year-old male with a past medical history of hypertension, hyperlipidemia, COPD on 3 L home oxygen, A-fib rate controlled on Eliquis, history of seizures, HFpEF (on home diuretics) Polysubstance Use Disorder/Alchohol Use Disorder with multiple hospitalizations at [facility] for hypoxic hypercapnia respiratory failure and previous admission for rhabdomyolysis (2022). Follows up with Dr. damon for seizure disorder. Patient was admitted on (10/03/2024) directly into ICU services for GCS score of 13 saturating in the lows 70s requiring intubation for acute hypercapnic respiratory failure. ABG (10/02/2024): pH 7.14, pCO2 161, pO2 73, and HCO3 55. Patient was extubated on 10/04/2024 and placed on Bipap and will be downgrade to internal medicine to Hospitalist team. Patient on methylprednisonlone, Duonebs, and Azithromycin. - The patient's plan was discussed with attending Dr Gruebr and senior residents Dr. Monique. Muriel Dela Cruz MD PGY1 Internal Medicine
[2024-10-05] VITALS (14 sets, daily range): BP systolic 115–125; BP diastolic 60–70; PULSE 67–89; RESP 14–37; TEMP 36.1–36.6; O2SAT 91–99; BMI 28.6
[2024-10-05] MEDS: ALBUTEROL/IPRATROPIUM (Duoneb) RT SOL 3 ML NEBU INH ×5 (02:42→23:35)
[2024-10-05 06:00] LABS: Basophils % (Auto) 0 % (0-2.5); Eosinophils % (Auto) 0 % (0-10); Hematocrit 39.8 % (41.0-53.0); Hemoglobin 12.5 g/dL (13.5-16.0); Immature Granulocytes % (Auto) 1 % (0-0); Immature Granulocytes Auto 0.05 Thou/mm3 (0.00-0.00); Lymphocytes # (Auto) 0.8 Thou/mm3 (1.0-4.8); Lymphocytes % (Auto) 13 % (10-50); Mean Corpuscular HGB Conc 31.4 g/dl (31.0-37.0); Mean Corpuscular Hemoglobin 30.4 pg (25.0-35.0); Mean Corpuscular Volume 97 fL (80-100); Monocytes # (Auto) 0.4 Thou/mm3 (0.0-0.8); Monocytes % (Auto) 6 % (0-12); Neutrophils # (Auto) 4.8 Thou/mm3 (1.8-7.7); Neutrophils % (Auto) 79 % (37-80); Nucleated Red Blood Cell % 0 /100 WBC (0); Platelet Count 88 Thou/mm3 (140-440); RDW Standard Deviation 52.9 fL (35.1-43.9); Red Blood Count 4.11 Miln/mm3 (4.50-5.90); White Blood Count 6.1 Thou/mm3 (3.8-10.6)
[2024-10-05 06:38] LABS: Alanine Aminotransferase 11 U/L (10-49); Albumin, Serum 4.1 gm/dL (3.4-4.8); Albumin/Globulin Ratio 1.8 (1.2-2.2); Alkaline Phosphatase 68 U/L (46-116); Anion Gap 2 (7-16); BUN/Creatinine Ratio 25 Ratio (12-20); Bilirubin,Total 0.3 mg/dL (0.3-1.2); Blood Urea Nitrogen 20 mg/dL (9-23); Calcium 9.3 mg/dL (8.3-10.6); Calcium (Corrected) 9.3 mg/dL (8.5-10.1); Carbon Dioxide 37.6 mMol/L (20.0-31.0); Chloride 97 mMol/L (98-107); Creatinine (Component) 0.8 mg/dL (0.6-1.3); Estimated Creatinine Clearance 112.1 mL/min (>60); Globulin 2.3 gm/dL (2.3-3.5); Glucose 133 mg/dL (74-106); Magnesium 2.1 mg/dL (1.6-2.6); Osmolality,Calculated 278 (275-295); Potassium 3.8 mMol/L (3.4-5.1); Sodium 137 mMol/L (136-145); Total Protein 6.4 gm/dL (5.7-8.2); eGFR > 60 See Note
[2024-10-05 06:43] LABS: Aspartate Amino Transferase < 8 U/L (0-34)
[2024-10-05] MEDS: PANTOPRAZOLE INJ 40 MG VIAL IVP (09:17)
[2024-10-05] MEDS: HEPARIN SOD INJ 5000 UNIT/ML VIAL SC ×2 (09:18→20:13)
[2024-10-05] MEDS: AZITHROMYCIN INJ 500 MG in SODIUM CHLORIDE 0.9% 250 ML 250 ML 250 MG IV (10:15)
--- NOTE | 2024-10-05 11:07 | PC.SS ---
Patient Padilla Lowe is a 64 Year old male admitted for Acute Hypercapnic Respiratory failure. SS met with patient at bedside to discuss discharge plan. Patient utilizes a walker to assist with ambulation as well as a wheelchair. Patient utilizes oxygen at home at 4L. Prior to admission . Patient?s medical surrogate decision maker is son, Daniel Lowe . Patient?s PCP is Nickolas Jones. Next of Kin: Daniel Lowe D/C Plan: Home
--- NOTE | 2024-10-05 11:11 | PC.SS ---
Patient Padilla Lowe is a 64 Year old male admitted for Acute Hypercapnic Respiratory failure. SS met with patient at bedside to discuss discharge plan. Patient utilizes a walker to assist with ambulation as well as a wheelchair. Patient utilizes oxygen at home at 4L. Prior to admission patient was able to complete ADL's independently. Patient?s medical surrogate decision maker is son, Daniel Lowe . Patient?s PCP is Nickolas Jones. At time of discharge patient will discharge home. Next of Kin: Daniel Lowe D/C Plan: Home
--- NOTE | 2024-10-05 13:19 | ESPR_ITS ---
<Statement entered by Gustavo Monique MD - 10/05/24 15:08> Patient was seen and examined at the bedside. He was downgraded from ICU yesterday successfully extubated for acute hypercapnic hypoxic respiratory failure due to COPD exacerbation. Patient stated that he is actively smoking 1- 1/2 pack every day and is not compliant with this albuterol/ipratropium inhalers. And keeping CPAP as needed at night. We are currently tapering off steroids. Will transition to p.o. steroid. Likely discharge the patient on appropriate inhaler therapy. Anticipate discharge tomorrow. Continue current management with DuoNebs, azithromycin and methylprednisone. All labs and orders were reviewed. I saw and examined the patient, and I agree with current management stated by Dr Lanie MD,PGY1. Plan of care was discussed with the attending physician and resident physician. Disclaimer: Despite multiple revisions, due to the dictation software being used, the document bellow may not be free of grammatical errors including phonetic/typographic errors. However, this does not deter from our commitment to providing health care in the patient's best interest in mind. Dr. Kayden MD, PGY 2 Documentation for date of: 10/05/24 Subjective Subjective Interval history: 64-year-old male with a past medical history of hypertension, hyperlipidemia, COPD on 3 L home oxygen, A-fib rate controlled on Eliquis, history of seizures, HFpEF (on home diuretics) Polysubstance Use Disorder/Alchohol Use Disorder admitted for COPD exacerbation. No overnight events reported fro patient. Patient SOB improved and is understanding of the importance on not stopping his medication as it can trigger COPD exacerbation. Exam Vital Signs Temp Pulse Resp BP Pulse Ox O2 Del Method O2 Flow Rate 97.8 F 72 18 131/66 H 94 L BiPAP 3 10/04/24 07:02 10/05/24 11:39 10/05/24 11:39 10/04/24 09:00 10/05/24 11:39 10/04/24 09:00 10/05/24 11:39 FiO2 30 10/04/24 09:00 Narrative Exam General Appearance: Alert & Oriented X3, well-nourished male who is lying in bed in no acute distress HEENT: Skull symmetrical and atraumatic. Conjunctivae pin and moist. Pupils equal, round, reactive to light and accommodation (PERRL). External ear without lesion or discharge. Straight, nares patient, mucosa pink, no discharge. No thyroid nodule appreciated. No cervical lymphadenopathy. Cardio: Normal Rate and Rhythm with S1 and S2 heart sounds. No murmurs or extra heart sounds auscultated. No bruits on carotid auscultation. NO peripheral edema or cyanosis. Lungs: Symmetric with good expansion. Chest and back non-tender. Decreased vesicular breath sounds with wheezing heard on auscultation. Abdomen: Non-tender, Non-distended, Normal Reactive Bowel Sounds Neuro: Alert, cooperative, oriented to person, place, and time. Speech clear. CN grossly intact. Upper motor strength 5/5 and Lower motor strength 5/5. Sensation intact. Objective Labs 10/06/24 05:24 10/06/24 05:24 Labs: Laboratory Results - last 24 hr 10/05/24 05:34 WBC 6.1 RBC 4.11 L Hgb 12.5 L Hct 39.8 L MCV 97 MCH 30.4 MCHC 31.4 RDW Std Deviation 52.9 H Plt Count 88 L Neut % (Auto) 79 Lymph % (Auto) 13 [place] % (Auto) 6 Eos % (Auto) 0 Baso % (Auto) 0 Neut # (Auto) 4.8 Lymph # (Auto) 0.8 L [place] # (Auto) 0.4 Eos # (Auto) 0.0 Baso # (Auto) 0.0 Immature Gran # (Auto) 0.05 H Absolute Nucleated RBC 0.00 Immature Gran % 1 H Nucleated RBC % 0 Sodium 137 Potassium 3.8 Chloride 97 L Carbon Dioxide 37.6 H Anion Gap 2 L BUN 20 Creatinine 0.8 Estim Creat Clear Calc 112.1 eGFR > 60 BUN/Creatinine Ratio 25 H Glucose 133 H Calculated Osmolality 278 Calcium 9.3 Corrected Calcium 9.3 Magnesium 2.1 Total Bilirubin 0.3 AST < 8 ALT 11 Alkaline Phosphatase 68 Total Protein 6.4 Albumin 4.1 Globulin 2.3 Albumin/Globulin Ratio 1.8 ABG Interpretation ABG results: 10/02/24 10/03/24 10/03/24 22:44 00:21 03:11 ABG pH 7.14 L* 7.32 L D 7.60 H D ABG pCO2 161 H* 111 H* D 56 H D ABG pO2 73 L 56 L* 84 D ABG HCO3 55 H 58 H 54 H ABG O2 Saturation 91 89 L 95 ABG Base Excess 18 H 24 H 28 H 10/03/24 10/03/24 10/03/24 04:23 08:32 16:55 ABG pH 7.50 H D 7.50 H 7.43 ABG pCO2 73 H* D 70 H 67 H ABG pO2 39 L* D 47 L* 47 L* ABG HCO3 57 H 55 H 44 H ABG O2 Saturation 84 L 88 L 85 L ABG Base Excess 28 H 26 H 16 H 10/04/24 04:27 ABG pH 7.45 ABG pCO2 60 H ABG pO2 57 L* ABG HCO3 41 H ABG O2 Saturation 89 L ABG Base Excess 15 H Quality Measures Quality Measures none Assessment & Plan Assessment Current Active Medications: Generic Name Dose Route Start Last Admin Trade Name Freq PRN Reason Stop Dose Admin Albuterol/Ipratropium 3 ml 10/03/24 02:08 Albuterol/Ipratropium (Duoneb) Rt Marita 3 Ml Nebu INH 11/02/24 02:59 Q4HRRT PRN wheezing Albuterol/Ipratropium 3 ml 10/03/24 11:00 10/05/24 11:38 Albuterol/Ipratropium (Duoneb) Rt Marita 3 Ml Nebu INH 11/02/24 10:59 Not Given Q4HRRT FREDIS Heparin Sodium (Porcine) 5,000 unit 10/03/24 09:00 10/05/24 09:18 Heparin Sod Inj 5000 Unit/Ml Vial SC 10/17/24 08:59 5,000 unit Q12HR FREDIS Administration Azithromycin 500 mg/ Sodium 250 mls @ 250 mls/hr 10/03/24 10:30 10/05/24 10:15 Chloride IV 10/08/24 10:29 250 mls/hr QDAY FREDIS Administration Methylprednisolone Sodium Succinate 60 mg 10/03/24 09:00 10/05/24 09:17 Methylprednisolone Sod Succ 40 Mg Vial IVP 10/10/24 08:59 60 mg QDAY FREDIS Administration Respiratory Home 2 puff 10/05/24 09:00 10/05/24 10:22 Medication- Please IH 11/04/24 08:59 Not Given Speak With Patient QDAY [facility] Caregiver To Have Rx Brought To [facility] Pantoprazole Sodium 40 mg 10/03/24 09:00 10/05/24 09:17 Pantoprazole Inj 40 Mg Vial IVP 11/02/24 08:59 40 mg QDAY FREDIS Administration Plan 64-year-old male with a past medical history of hypertension, hyperlipidemia, COPD on 3 L home oxygen, A-fib rate controlled on Eliquis, history of seizures, HFpEF (on home diuretics) Polysubstance Use Disorder/Alchohol Use Disorder admitted for COPD exacerbation. #COPD, exacerbation #Acute Hypercapnia Respiratory Failure, Resolved Patient stated he has had multiple episodes of COPD exacerbation and believe he feels drowsy secondary to all his medication. He had recently stopped taking everything. Counseled on the importance of starting medication. Diagnostics: WBC (10/05/2024): 6.1 Blood culture negative after 48 hrs Sputum: mixed oral april EKG: Sinus Rhythm Chest Xray (10/05/2024): Prominent vascular congestion. Pneumonia left base MRSA positive Plan -On Room air -Azithromycin 250 QDay IV -Duonebs 4HRRT PRN -Methylpredinisolone 60 mg IVP Qday -Tiotropium IH Qday -no available -Urine Culture pending -Consider adding mupirocin AM -SpO2 goal between 88-92% on oxygen #CHF, HFpEF 55-60% (09/28/2024) Grade I diastolic dysfunction Diagnostics:Normal LV size and function. Grade I diastolic dysfunction. Estimated EF 55-60% #hx of A-Fibrillation #Hyperlipidemia No atorvastatin noted on previous medication list, given history of CHF restart Eplernone restart in AM. Patient stated he had stopped all his medication. NO adherant. Previous Echo (10/05/2024): -Add daily weight checks for patient -Strict In and Outs -Fluid restrict 1800 -2 g Sodium Diet AM -Obtain lipid panel AM -Consider adding Atorvastatin as no -Restart 10/06/2024 Furosemide 20 mg HS -Restart 10/06/2024 Eplerenone -Restart 10/06/2024 Eliquis 5 mg BID #Polysubstance Use Disorder Health Maintenance: Disp: Pt is currently admitted to floors for further management of COPD exacerbation, awaiting COPD improvement FEN: Cardiac DVT: on subQ heparin Code: Full Code - The patient's plan was discussed with attending Dr. Gruber and senior residents Kayden Dela Cruz MD PGY1 Internal Medicine Attending Provider Attestation/Addendum I have discussed and was present for the essential components of the history, physical examination, diagnosis, and treatment plan with the resident. I agree with the patient's care as documented by the resident and amended herein by me. Herman Gruber, DO. Although this document has been carefully reviewed, there may still be some phonetic and other typographical errors. These errors are purely grammatical due to imperfections in the software program and should not be construed in any way to compromise the substance of the patient's medical care during this visit.
[2024-10-06] VITALS (11 sets, daily range): BP systolic 121–156; BP diastolic 56–88; PULSE 68–89; RESP 18–24; TEMP 36.3–36.8; O2SAT 93–98
[2024-10-06] MEDS: ALBUTEROL/IPRATROPIUM (Duoneb) RT SOL 3 ML NEBU INH ×4 (02:57→14:16)
[2024-10-06 05:59] LABS: Basophils % (Auto) 0 % (0-2.5); Eosinophils % (Auto) 0 % (0-10); Hematocrit 39.6 % (41.0-53.0); Hemoglobin 12.3 g/dL (13.5-16.0); Immature Granulocytes % (Auto) 1 % (0-0); Immature Granulocytes Auto 0.05 Thou/mm3 (0.00-0.00); Lymphocytes % (Auto) 18 % (10-50); Mean Corpuscular HGB Conc 31.1 g/dl (31.0-37.0); Mean Corpuscular Hemoglobin 30.6 pg (25.0-35.0); Mean Corpuscular Volume 99 fL (80-100); Monocytes # (Auto) 0.3 Thou/mm3 (0.0-0.8); Monocytes % (Auto) 5 % (0-12); Neutrophils % (Auto) 76 % (37-80); Nucleated Red Blood Cell % 0 /100 WBC (0); Platelet Count 101 Thou/mm3 (140-440); RDW Standard Deviation 54.4 fL (35.1-43.9); Red Blood Count 4.02 Miln/mm3 (4.50-5.90); White Blood Count 5.3 Thou/mm3 (3.8-10.6)
[2024-10-06 06:40] LABS: Alanine Aminotransferase 12 U/L (10-49); Albumin/Globulin Ratio 1.7 (1.2-2.2); Alkaline Phosphatase 69 U/L (46-116); Anion Gap 4 (7-16); Aspartate Amino Transferase < 10 U/L (0-34); BUN/Creatinine Ratio 27 Ratio (12-20); Bilirubin,Total 0.2 mg/dL (0.3-1.2); Blood Urea Nitrogen 19 mg/dL (9-23); Carbon Dioxide 37.5 mMol/L (20.0-31.0); Chloride 97 mMol/L (98-107); Creatinine (Component) 0.7 mg/dL (0.6-1.3); Globulin 2.3 gm/dL (2.3-3.5); Glucose 139 mg/dL (74-106); Magnesium 2.1 mg/dL (1.6-2.6); Osmolality,Calculated 279 (275-295); Potassium 3.9 mMol/L (3.4-5.1); Sodium 138 mMol/L (136-145); Total Protein 6.3 gm/dL (5.7-8.2); eGFR > 60 See Note
--- NOTE | 2024-10-06 07:36 | PC.NURSE ---
Pt. pain scale is 6/10, pt. refusing any type of pain medication at this time, will cont. to monitor.
[2024-10-06] MEDS: PANTOPRAZOLE INJ 40 MG VIAL IVP (08:39)
--- NOTE | 2024-10-06 10:21 | PC.SS ---
SS follow up note; SS met with patient and he does not have a preference in HH agency.
--- NOTE | 2024-10-06 12:45 | ESDS_ITS ---
<Statement entered by Gustavo Monique MD - 10/06/24 13:24> Patient was seen and examined at the bedside. Patient completed antibiotic course during hospital stay. We are tapering off of steroids and recommended to continue 40 mg methylprednisolone daily for total 5 days to complete course. PT recommended home health. Patient will need oxygen at home to be continued as he desaturates on walking. He was advised to follow-up with his PCP as outpatient to optimize his home medications. Will continue with his inhalers for COPD. Patient was explained that if he would leave without home oxygen it would be an AMA. Patient does not know why he was on Eliquis therefore it will be not continued during discharge as we did not record any A-fib during our hospital stay. Of note, patient urine culture grew vancomycin-resistant enterococci sensitive to linezolid or daptomycin possible colonization and was asymptomatic during hospital course therefore not treated. All labs and orders were reviewed. I saw and examined the patient, and I agree with current management stated by Dr Lanie MD,PGY1. Plan of care was discussed with the attending physician and resident physician. Disclaimer: Despite multiple revisions, due to the dictation software being used, the document bellow may not be free of grammatical errors including phonetic/typographic errors. However, this does not deter from our commitment to providing health care in the patient's best interest in mind. Dr. Kayden MD, PGY 2 Planned Discharge Date 10/06/24 DS: Providers Provider Date of admission: 10/03/24 00:55 Primary care physician: Physician No Primary/Family Admitting Provider: David Scott MD Attending Provider on Admission: Hong Gruber DO Consults: 10/03/24 05:00 Referral Infection Control Routine Comment: Reason for Infection Control Referral: Readmitted within 30 days 10/05/24 08:38 Referral Physical Therapy Routine Comment: Physician Instructions: Attending Provider on DC: Muriel Dela Cruz MD Discharging Provider: Muriel Dela Cruz MD DS: Diagnosis Problem List Completed Was Problem List Reviewed/Reconciled?: Yes Hospital Course Hospital Course Hospital course: Summary: Patient is a 64-year-old male with a past medical history of hypertension, hyperlipidemia, COPD on 3 L home oxygen, A-fib rate controlled on Eliquis, hist ory of seizures, HFpEF (on home diuretics) Polysubstance Use Disorder/Alchohol Use Disorder admitted for COPD exacerbation. ER Course: Patient presented with blood pressure 136/67, heart rate of 93, respiration rate 35 on oxy mask 15 L, FiO2 30% saturating 100%. However due to increase in respiration rate and worsening altered mental status and impending respiratory failure, patient was intubated in the ED. Patient was placed on initial ventilation settings with tidal volume of 400, respiration rate 18, approximately 8L/min. Labs significant for macrocytic anemia, low platelet count, elevated D-dimer, respiratory acidosis and acidemia. Pro-Dixon negative and UA negative for UTI. Lactic acid within normal limits.Head CT was negative for acute hemorrhage or midline shift. In the ED, patient was given IV Lasix x 1, methylprednisone 125 mg IV x 1, started on propofol after rapid sequence intubation. Hospital Course: Patient was initially admitted on 10/03/2024 directly into the ICU for acute hypercapnic respiratory failure requiring intubation likely secondary to COPD exacerbation. Patient was extubated and downgraded to the floors on (10/04/2024) and methylprednisolone de-escalated from 60 to 40 mg. COPD continued with Duonebs and azithromycin. Patient denied any CHF history and denied history of Atrial fibrillation. Please follow up with primary care provider to continue managment of home medication. Home with oxygen. 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 Instructions: -Please start new medication prednisone 40 mg once a day (two tablets) for 5 days to help reduced inflammation in lungs from COPD -Please continue home medication of albuterol (rescue) inhaler 2 puffs as needed every 6 hours and continue tiotropium 2 puff once a day -Please continue home diabetes medication of dapaglliflozin 5 mg every day in the morning -Please continue hear failure medication eplerenone 25 mg once a day and furosemide 40 mg oral twice a day -Please restrict total oral fluid intake to 1800 ml per day and check daily weight. If increase of greater than 2 lbs within one to two day, please douple up on furosemide and notifiy primary care doctor. -Home with oxygen, Home with Home health. -Please follow up with primary care provider within 1 to 2 weeks from discharge. -if symptoms worsen please return to the emergency room -If you need a primary care provider, please follow up with the [facility] at [address], [place] [address]. P: [phone] #COPD, improved #Acute Hypercapnia Respiratory Failure, Resolved #CHF, HFpEF 55-60% (09/28/2024) Grade I diastolic dysfunction Estimated EF 55- 60% #hx of A-Fibrillation #Hyperlipidemia #Polysubstance Use Disorder Time Spent with Patient Time attestation: Total time spent providing and/or coordinating discharge services: greater than 35 minutes Home Health Home Health Referral Orders: 10/06/24 09:25 Home Health Referral Routine Reason For Exam: debility Home-Bound The patient must either because of illness or injury, need the aid of supportive devices such as crutches, canes, wheelchairs, and walkers; the use of special transportation; or the assistance of another person in order to leave their place of residence; OR have a condition such that leaving his or her home is medically contraindicated. In addition, the patient also meets the following criteria: patient is normally unable to leave the home and leaving home requires considerable taxing effort. Addendum to Home Health Certification Practitioner's Certification: I certify that the patient has been under my care in the hospital and the care of attending physician (see below). We had a [id number] encounter on (see date below). My clinical findings indicate that the patient is home bound per the above criteria and the Home Health Services noted in these orders are medically necessary. The primary reason for the [id number] encounter is related to the fact that the patient requires home health services. Date Certifying [id number] Physician Encounter: 10/03/24 Physician's Name who will Assume Oversight for HH Services: Physician No Primary/Family SHOW DOG TRAINER - Community Resources: No PT to Evaluate: Yes PT to evaluate and provide a treatmnet plan to increase patient's mobility and strength. Wound Care: No IV Therapy: No RN Safety Evaluation: Yes RN to evaluate and create a plan of care that will produce positive outcomes. Palliative Treatment: No Palliative treatment and evaluate the need for hospice. Home Health Aide - Personal Care: No Home Health Aide to assist with any ADL's. Exam Vital Signs Temp Pulse Resp BP Pulse Ox O2 Del Method O2 Flow Rate 97.9 F 89 20 121/56 L 96 Nasal Cannula 3 10/06/24 09:00 10/06/24 10:56 10/06/24 10:56 10/06/24 09:00 10/06/24 10:56 10/06/24 09:00 10/06/24 10:56 FiO2 30 10/05/24 17:48 Narrative Exam General Appearance: Alert & Oriented X3, well-nourished male who is lying in bed in no acute distress HEENT: Skull symmetrical and atraumatic. Conjunctivae pin and moist. Pupils equal, round, reactive to light and accommodation (PERRL). External ear without lesion or discharge. Straight, nares patient, mucosa pink, no discharge. Cardio: Normal Rate and Rhythm with S1 and S2 heart sounds. No murmurs or extra heart sounds auscultated. No bruits on carotid auscultation. NO peripheral edema or cyanosis. Lungs: Symmetric with good expansion. Chest and back non-tender. Decreased vesicular breath sounds with rhonchi and wheezing. Abdomen: Non-tender, Non-distended, Normal Reactive Bowel Sounds Neuro: Alert, cooperative, oriented to person, place, and time. Speech clear. CN grossly intact. Upper motor strength 5/5 and Lower motor strength 5/5. Sensation intact. Discharge Plan Plan Patient Disposition: Home w/HOME HEALTH Patient condition on transfer: Stable Care Plan Goals: -Please start new medication prednisone 40 mg once a day (two tablets) for 5 days to help reduced inflammation in lungs from COPD -Please continue home medication of albuterol (rescue) inhaler 2 puffs as needed every 6 hours and continue tiotropium 2 puff once a day -Please continue home diabetes medication of dapaglliflozin 5 mg every day in the morning -Please continue hear failure medication eplerenone 25 mg once a day and furosemide 40 mg oral twice a day -Please restrict total oral fluid intake to 1800 ml per day and check daily weight. If increase of greater than 2 lbs within one to two day, please douple up on furosemide and notifiy primary care doctor. -Home with oxygen -Please follow up with primary care provider within 1 to 2 weeks from discharge. -if symptoms worsen please return to the emergency room -If you need a primary care provider, please follow up with the [facility] at [address], [place] [address]. P: [phone] Prescriptions/Referrals Prescriptions/Med Rec: New prednisone 20 mg tablet 40 mg PO QDAY 5 Days Qty: 10 0RF Continued tiotropium-olodaterol 2.5-2.5 mcg/actuation mist 2 puff inhalation QDAY Qty: 4 0RF albuterol sulfate 90 mcg/actuation aerosol powdr breath activated 2 inh inhalation Q6H PRN (Reason: shortness of breath or wheezing) Qty: 1 3RF furosemide 40 mg tablet 40 mg PO BID 30 Days Qty: 60 0RF dapagliflozin propanediol [Farxiga] 5 mg tablet 5 mg PO QAM 30 Days Qty: 30 0RF eplerenone 25 mg tablet 25 mg PO QDAY 30 Days Qty: 30 0RF Discontinued methylprednisolone [Medrol (Agus)] 4 mg tablets,dose pack 4 mg PO QDAY 7 Days Qty: 7 0RF Rx Instructions: for 7 days sep 30- Referrals: No Primary/Family,Physician [Primary Care Provider] - Patient/Caregiver Discharge Instructions Education Materials: What Is Heart Failure, Coping with Heart Failure, Heart Failure Making Changes to ... Print Language: Slovenian Activity Restrictions/Additional Instructions: LIMIT SALT INTAKE LIMIT FLUID INTAKE, LIMIT CAFFEINE INTAKE IF POSSIBLE WEIGH YOURSELF EVERY DAY Stand Alone Forms: [facility] [employer] Award Info., Patient Portal Info Letter Discharge Order Discharge Orders: Discharge (Routine); Ordered 10/06/24 Ordered By: Gustavo Monique Quality Discharge Quality Measures VTE prophylaxis Attestestation Attestation I have discussed and was present for the essential components of the discharge history, physical examination, diagnosis, and discharge treatment plan with the resident. I agree with the patient's discharge care as documented by the resident and amended herein by me. Herman Gruber DO. The patient understood all discharge instructions, all questions were answered satisfactorily. The patient was instructed to return to the Emergency Department is symptoms worsened or persisted. Patient was stable, afebrile, tolerating p.o. intake and ambulatory at time of discharge. Patient strenuously urged to be compliant with his medications. Will not restart Eliquis at this time until patient follows up with his PCP, patient has not taken the medication since January 2024. Will continue prednisone for an additional 5 days 40 mg daily. Patient also instructed to wear his CPAP at home as instructed. The patient's urine cultures did result with VRE however the patient completely asymptomatic, likely colonized hence will not treat at this time. All questions were answered Although this document has been carefully reviewed, there may still be some phonetic and other typographical errors. These errors are purely grammatical due to imperfections in the software program and should not be construed in any way to compromise the substance of the patient's medical care during this visit.
--- NOTE | 2024-10-06 13:10 | PC.NURSE ---
1200 WENT TO GIVE DISCHARGE INSTRUCTION. PATIENT VERY AGGRESSIVE. INFORMED THAT HE NEEDS HIS PORTABLE O2 BROUGHT IN FOR DISCHARGE. STATED THE PERSON TO COME TAKE HIM HOME DOES NOT HAVE ACCESS. STATES HE LIVES [address] AWAY AND WILL BE OK. OS SAT CHECKED ON RA, IMMEDIATELY DROPPED TO 82%. INFORMED THAT HE NEEDS HIS O2 AND CAN NOT BE DISCHARGED WITHOUT IT. STATES HE WILL LEAVE. INFORMED I WOULD SPEAK TO THE DOCTOR BUT IS O2 IS NEEDED HE WOULD HAVE TO SIGN OUT AMA. DR VIDSE CALLED AND INFORMED OF THE SITUATION. SAID SHE WOULD CALL BACK NEEDS TO SPEAK WITH DR ARANA. DR VIDES CALLED BACK AND STATED CAN NOT LEAVE WITH OUT O2. WHEN RETURNED TO PATIENT BEDSIDE, HE NOW IS C/O WALLET. BELONGINGS LIST DOES NOT HAVE WALLET WRITTEN DOWN. CHARGE NURSE INFORMED SITUATION. WENT TO SPEAK TO THE PATIENT WHO NOW STATES HAS NO RIDE HOME. LAVINIA CHARGE NURSE WILL F/U WITH [facility].
--- NOTE | 2024-10-06 13:19 | PC.NURSE ---
PATIENT TOOK OFF MONITOR DUE TO DISCHARGE. WILL NOT REAPPLY WHILE WAITING FOR RIDE.
--- NOTE | 2024-10-06 13:58 | PC.SS ---
SS follow up note; Alyse will be delivering 02 at bedside in 1-2 Hrs. SS will be assisting with transportation for patient.
[2024-10-06] MEDS: predniSONE 20 MG TABLET 40 MG PO (14:16)
--- NOTE | 2024-10-08 08:08 | PC.CM ---
HH referral was sent on [facility] by [facility] transfer nurse. Aimee accepted the referral and it was booked by [place]. Pending start of care date.
--- NOTE | 2024-10-11 10:50 | PC.CM ---
Patient was opened to [facility] on 10/08.
== END 2024-10-06 14:38 | disposition home health service (06) | DRG 208 ==
LOC: SERX 23:07 → SERHOLD 10-03 01:35 → S2SX 10-03 03:25 → S3SX 10-04 11:21
PROVIDERS: Internal Medicine; Student in an Organized Health Care Education/Training Program; Admitting Provider Internal Medicine; Emergency Provider Emergency Medicine; Visit Provider Student in an Organized Health Care Education/Training Program
DX: J96.21 Acute and chronic respiratory failure with hypoxia (principal); J18.9 Pneumonia, unspecified organism; J44.1 Chronic obstructive pulmonary disease with (acute) exacerbation; J44.0 Chronic obstructive pulmonary disease with (acute) lower respiratory infection; I50.32 Chronic diastolic (congestive) heart failure; E87.4 Mixed disorder of acid-base balance; G93.40 Encephalopathy, unspecified; I11.0 Hypertensive heart disease with heart failure; J96.22 Acute and chronic respiratory failure with hypercapnia; I48.91 Unspecified atrial fibrillation; E78.5 Hyperlipidemia, unspecified; D53.9 Nutritional anemia, unspecified; D69.6 Thrombocytopenia, unspecified; E11.51 Type 2 diabetes mellitus with diabetic peripheral angiopathy without gangrene; F17.210 Nicotine dependence, cigarettes, uncomplicated; Z99.81 Dependence on supplemental oxygen; Z91.148 Patient's other noncompliance with medication regimen for other reason; Z28.21 Immunization not carried out because of patient refusal; Z79.899 Other long term (current) drug therapy; Z79.84 Long term (current) use of oral hypoglycemic drugs
CPT/HCPCS: 36415; 36600; 70450; 71045; 80053; 80307; 81001; 82550; 82803; 83605; 83735; 84145; 84484; 85025; 85379; 85610; 85730; 87040; 87077; 87081; 87086; 87186; 87205; 87400; 87811; 93005; 93225; 94002; 94003; 94640; 94660; 97162; 99291; A9270; J0330; J0456; J1120; J1643; J1940; J2470; J2704; J2919; J3490; J7050; J7512; J1644

== ENCOUNTER 2024-10-24 23:27 | Inpatient (IN) | payer MEDICARE, MEDICAID, SELFPAY ==
--- NOTE | 2024-10-24 23:30 | PC.NURSE ---
PT BIB EMS WITH C/O GENERALIZED WEAKNESS AND SOB X2 WEEKS. PER EMS PT WAS SATING 85% ON 4L NC. PT IS ON HOME O2 NC 4L. NEB TX GIVEN IN ROUTE. PT STATES THE LAST TWO DAYS HIS WEAKNESS HAS WORSEN STATING HE HAS HAD FALL TWICE AT HOME. PT DENIES INJURY TO HIS HEAD. NO TRAUMA NOTED. PT DENIES ANY PAIN. PT PRESENTS TO THE ER, APPEARS SOB RESPIRATIONS ARE EVEN BUT LABORED. PER EMS PT HAS HX OF COPD, AND CHF. PT PLACED ON NC 4L UPON ARRIVAL TO ER. PT PLACED ON CARDIAC MONITORING. PT UPDATED ON PLAN OF CARE. DR PENA AT BEDSIDE ASSESSING PT AT THIS TIME. CALL LIGHT WITHIN REACH. BED AT LOWEST POSITION. PLAN OF CARE GOING.
[2024-10-24 23:32] VITALS: PULSE 84; RESP 24; BMI 31.8
--- NOTE | 2024-10-24 23:42 | PD.EDSOB ---
ED SOB =RME/HPI General Chief Complaint: Shortness of Breath/Dyspnea Stated Complaint: SOB Time Seen by Provider: 10/24/24 23:42 Arrival date/time: 10/24/24 23:27 RME / HPI RME / HPI Narrative: Dr. Sanchez?s Main ED Evaluation: 64yo male with pmhx CHF, COPD on 4L, HTN, HLD, aFib BIBA from home presents to the ED for a chief complaint of generalized weakness x 2 weeks. Patient states his weakness has worsened over the last 2 days, reporting he fell at home twice today. He denies any chest pain, worsening shortness of breath, abdominal pain, headache, neck pain, extremity pain or any other associated symptoms. He states he still smokes cigarettes. Denies any alcohol or illicit drug use. No known allergies. Patient states he has an appointment with his PCP on Thursday. Related Data Previous Rx's ?Medication ?Instructions ?Recorded albuterol sulfate 90 mcg/actuation 2 inh inhalation Q6H PRN shortness 09/20/24 breath activated powder inhaler of breath or wheezing #1 ea tiotropium 2.5 mcg-olodaterol 2.5 2 puff inhalation QDAY #4 grams 09/20/24 mcg/actuation mist for inhalation dapagliflozin propanediol 5 mg 5 mg PO QAM 1 month #30 tabs 09/30/24 tablet (Farxiga) eplerenone 25 mg tablet 25 mg PO QDAY 1 month #30 tabs 09/30/24 furosemide 40 mg tablet 40 mg PO BID 1 month #60 tabs 09/30/24 Allergies Allergy/AdvReac Type Severity Reaction Status Date / Time No Known Allergies Allergy Verified 09/15/24 12:27 Review of Systems Review of Systems Systems Reviewed: All systems reviewed, normal except as documented ED Exam Narrative Physical exam: GENERAL APPEARANCE: alert and oriented x 4, well-developed, well-nourished, no acute distress VITALS: All vitals were reviewed and the pulse ox is 96% on 4L/NC, which is normal according to my interpretation. HEENT: Normocephalic, atraumatic; pupils equal, round, reactive to light; EOMI; mucous membranes pink, moist; oropharynx clear NECK: Supple LUNGS: CTABL; no wheezes, no rales, no rhonchi HEART: Regular rate, regular rhythm; normal S1, S2; no murmurs ABDOMEN: non distended; normal BS; soft, no tenderness, no guarding, no rebound; no masses, no organomegaly, no hernia BACK: no CVA tenderness EXTREMITIES: atraumatic; no edema NEUROLOGIC: awake; alert and oriented x4; cranial nerves II-XII grossly intact; no focal sensory or motor deficits PSYCHIATRIC: appropriate mood and affect SKIN: warm, dry, normal color; no rashes Course Course Course Narrative: CXR is ordered for determining the etiology of shortness of breath. Quality Measures none Orders Category Date Time Status Bedside COVID-19 Antigen Test NOW Care 10/25/24 03:33 Active Bedside COVID-19 Antigen Test NOW Care 10/25/24 03:34 Active Synthetic Staple Extruder NOW Care 10/24/24 23:53 Active Continuous Pulse Oximetry NOW Care 10/24/24 23:53 Completed EKG (ED ONLY) *Do not use* NOW Care 10/24/24 23:53 Completed Insert IV NOW Care 10/24/24 23:53 Active Referral Respiratory Therapy Stat Cons 10/25/24 01:59 Active EKG (ED Only) Stat Exams 10/24/24 23:53 Ordered XR chest 1V portable Stat Exams 10/24/24 23:53 Taken ABG [Arterial Blood Gas] Stat Lab 10/25/24 03:50 Completed Arterial Blood Gas Stat Lab 10/25/24 00:42 Completed B-Type Natriuretic Peptide Stat Lab 10/24/24 23:54 Completed CBC Stat Lab 10/24/24 23:54 Completed Comprehensive Metabolic Panel Stat Lab 10/24/24 23:54 Completed Drug Screen,Urine Stat Lab 10/24/24 00:52 Completed Magnesium Stat Lab 10/24/24 23:54 Completed Troponin I Stat Lab 10/24/24 23:54 Completed Urinalysis, C/S if Indicated Stat Lab 10/24/24 00:52 Completed Albuterol/Ipratr Rt Marita [Duoneb Rt Marita] Med 10/24/24 23:53 Discontinued 3 ml INH X1 ONE MethylPREDNISolone.* [SoluMEDROL Inj] Med 10/24/24 23:53 Discontinued 125 mg IV X1 ONE BiPAP / CPAP NOW RT 10/25/24 02:22 Active Oxygen Delivery NOW RT 10/24/24 23:53 Active Vital Signs Vital signs: Vital Signs Temperature 98.1 F 10/24/24 23:53 Pulse Rate 91 10/24/24 23:53 Respiratory Rate 20 10/24/24 23:53 Blood Pressure 170/85 H 10/24/24 23:53 Pulse Oximetry (%) 96 10/24/24 23:53 Oxygen Delivery Method Nasal Cannula 10/24/24 23:53 Oxygen Flow Rate 4 10/24/24 23:53 Procedures -ED Smoking Cessation Time Spent Discussing Smoking Cessation w/Patient (min): 5 Patient Acknowledges Need for Cessation: Yes Additional Comments: The patient was counseled as to the multiple risks to their health from continued use of tobacco products. 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 The patient states she/he understands these risks and also understands the options and resources available to them to help them stop smoking. Nicotine replacement therapy, local hotlines, and local resources were discussed as viable options for helping them stop their tobacco use. The total time spent counseling the patient regarding tobacco cessation was 5 minutes. Shortness of Breath / Dyspnea MDM Narrative MDM Narrative:: Scribe Attestation: 10/24/24 - Lola Doshi am scribing for and in the presence of Dr. Sanchez. Patient placed on BiPaP due to his ABG results. Patient data External records reviewed:: [facility] previous records (Per chart review, patient was admitted here on 10/02/24 for acute on chronic respiratory failure.) Clinical information provided by:: patient Social determinants that could affect healthcare access:: none Patient has the following chronic illnesses:: COPD, HTN, HLD, aFib, CHF How is presenting disease/condition affected by chronic disease/condition?: exacerbated by Evaluation data The following diagnostics were reviewed and interpreted by me:: lab results, radiology exam(s) and EKG tracing(s) Lab and/or radiology exams considered but not ordered:: none Interpretation Summary: ABG shows an elevated CO2 of 99 and elevated Bicarb of 59, CBC is normal, Chloride is low at 90, troponin is normal, BNP is normal, UA is unremarkable, UDS is negative, Repeat ABG shows a CO2 of 88 and Bicarb of 57, according to my interpretation. CXR shows cardiomegaly, a right perihilar infiltrate, normal sharp diaphragmatic edge, normal costophrenic angles, according to my interpretation. EKG done at 0014, rate of 78, normal axis, no ectopy, Q waves in V1 and V2, no STEMI, according to my interpretation. Medications / Prescriptions Medications or Prescriptions considered but not ordered:: none Medication administrations:: Medication Administration History Discontinued Medications Albuterol/Ipratropium (Albuterol/Ipratropium (Duoneb) Rt Marita 3 Ml Nebu) 3 ml INH X1 ONE Stop: 10/24/24 23:54 Last Admin: 10/25/24 00:29 Dose: 3 ml Documented By: Methylprednisolone Sodium Succinate (Methylprednisolone Sod Succ 62.5 Mg/Ml 2ml Vial) 125 mg IV X1 ONE Stop: 10/24/24 23:54 Last Admin: 10/25/24 00:29 Dose: 125 mg Documented By: PIPPA see above Consultations Consultation(s) initiated? (list below): Yes Consultation #1 (Physician, Specialty, Details): Discussed case with [Dr. Gilman - ICU resident] from Hospitalist service regarding admission. Discussed patients ED course, exam findings, labs, and radiology results. States the patient can be admitted to telemetry. Time: 04:09 Consultation #2 (Physician, Specialty, Details): Discussed case with [the resident physician, attending Dr. Malone] from Hospitalist service regarding admission. Discussed patients ED course, exam findings, labs, and radiology results. The Hospitalist [agrees] to accept the patient for admission. Time: 04:12 Diagnosis Shortness of Breath Differential Diagnosis: community acquired pneumonia, asthma with exacerbation, pulmonary embolism and other (COPD exacerbation, CHF exacerbation) Most likely diagnosis given after review of the tests above:: see below Admission Indicated Admission indicated?: indicated Admission Request Was there a request for admission?: Yes Admission Attestation Admission request attestation: Discussed case with [] from Hospitalist service regarding admission. Discussed patients ED course, exam findings, labs, and radiology results. The Hospitalist [agrees,declines] to accept the patient for admission. Disposition Plan Disposition Plan: Admit Critical Care Time Critical Care Time Critical Care Time: Yes Total Critical Care Time (min.): 45 Attestation: The high probability of sudden, clinically significant deterioration in the patient?s condition required the highest level of my preparedness to intervene urgently. The services I provided to this patient were to treat and/or prevent clinically significant deterioration. Services included the following: chart data review, reviewing nursing notes and/or old charts, documentation time, showroom sales consultant collaboration regarding findings and treatment options, medication orders and management, direct patient care, vital sign assessments and ordering, interpreting and reviewing diagnostic studies and lab tests. Aggregate critical care time includes only time during which I was engaged in work directly related to the patient?s care, as described above, whether at bedside or elsewhere in the Emergency Department. It did not include time spent performing other reported procedures or the services of residents, students, nurses or physician assistants. Discharge Plan Plan Patient Disposition: Admit Acute Care w/in Hospital Prescriptions/Referrals Prescriptions/Med Rec: No Action tiotropium-olodaterol 2.5-2.5 mcg/actuation mist 2 puff inhalation QDAY Qty: 4 0RF albuterol sulfate 90 mcg/actuation aerosol powdr breath activated 2 inh inhalation Q6H PRN (Reason: shortness of breath or wheezing) Qty: 1 3RF furosemide 40 mg tablet 40 mg PO BID 30 Days Qty: 60 0RF dapagliflozin propanediol [Farxiga] 5 mg tablet 5 mg PO QAM 30 Days Qty: 30 0RF eplerenone 25 mg tablet 25 mg PO QDAY 30 Days Qty: 30 0RF Referrals: Nickolas Jones MD [Primary Care Provider] - In 1 week Problem List Clinical Impression: Hypercapnic respiratory failure Patient/Caregiver Discharge Instructions Print Language: [place] Stand Alone Forms: [facility] Award Info., Patient Portal Info Letter
[2024-10-24 23:53] VITALS: BP 170/85; PULSE 91; RESP 20; TEMP 36.7; O2SAT 96
--- NOTE | 2024-10-24 23:53 | XR_ITS ---
Examination: AP chest single view Technique: AP portable semiupright chest single view Exam date and time: October 25, 2024 0011 hrs. Comparison October 04, 2024 Indications: Coughing today. Findings: Suspicious for early heart failure Mild enlargement cardiac contour Prominent vascular congestion including central vascular engorgement Suspicious for septal edema at the lung bases Impression: Suspicious for early heart failure
[2024-10-24 23:57] VITALS: PULSE 91; RESP 20; O2SAT 96
[2024-10-25] VITALS (17 sets, daily range): BP systolic 120–152; BP diastolic 58–86; PULSE 58–87; RESP 16–29; TEMP 36–36.7; O2SAT 92–100
[2024-10-25] MEDS: ALBUTEROL/IPRATROPIUM (Duoneb) RT SOL 3 ML NEBU INH ×4 (00:29→19:29)
[2024-10-25] MEDS: MethylPREDNISolone SOD SUCC 62.5 MG/ML 2ML VIAL 125 MG IV (00:29)
[2024-10-25 00:51] LABS: Base Excess 27 (-3-3); HCO3 59 mEq/L (20-26); Inspired Oxygen, FIO2 36 %; O2 Saturation 95 % (91-98); PCO2 99 mmHg (32.0-48.0); PO2 91 mmHg (83-108); pH, Arterial 7.38 (7.35-7.45)
[2024-10-25 00:52] LABS: Allen Test Not Performed; Puncture Site Right Radial
[2024-10-25 00:53] LABS: Basophils % (Auto) 0 % (0-2.5); Eosinophils % (Auto) 0 % (0-10); Hematocrit 41.9 % (41.0-53.0); Hemoglobin 12.5 g/dL (13.5-16.0); Immature Granulocytes % (Auto) 1 % (0-0); Immature Granulocytes Auto 0.06 Thou/mm3 (0.00-0.00); Lymphocytes # (Auto) 0.9 Thou/mm3 (1.0-4.8); Lymphocytes % (Auto) 16 % (10-50); Mean Corpuscular HGB Conc 29.8 g/dl (31.0-37.0); Mean Corpuscular Hemoglobin 30.9 pg (25.0-35.0); Mean Corpuscular Volume 104 fL (80-100); Monocytes # (Auto) 0.5 Thou/mm3 (0.0-0.8); Monocytes % (Auto) 9 % (0-12); Neutrophils % (Auto) 73 % (37-80); Nucleated Red Blood Cell % 0 /100 WBC (0); Platelet Count 89 Thou/mm3 (140-440); RDW Standard Deviation 54.8 fL (35.1-43.9); Red Blood Count 4.05 Miln/mm3 (4.50-5.90); White Blood Count 5.4 Thou/mm3 (3.8-10.6)
[2024-10-25 00:58] LABS: Collection Type, Urine Clean Catch
[2024-10-25 01:04] LABS: Bilirubin,Urine Negative (Negative); Blood,Urine Negative (Negative); Clarity,Urine Clear (Clear/Hazy); Color,Urine Lt-Yellow (Lt Yel-Yel); Culture Indicated,Urine Not Indicated; Glucose, Urine Negative (Negative); Hyaline Casts,Urine < 1 /hpf (0-1); Ketones,Urine Negative (Negative); Leukocyte Esterase,Urine Negative (Negative); Nitrite,Urine Negative (Negative); PH,Urine 6.5 (5.0-7.0); Protein,Urine Negative (Neg - Trace); RBC,Urine 1 /hpf (0-3); Specific Gravity,Urine 1.012 (1.001-1.035); Squamous Epithelial Cell,Urine < 1 /hpf (0-5); Urobilinogen,Urine Negative mg/dL (0.0-1.0); WBC,Urine 1 /hpf (0-5)
[2024-10-25 01:21] LABS: Alanine Aminotransferase 12 U/L (10-49); Albumin, Serum 3.8 gm/dL (3.4-4.8); Albumin/Globulin Ratio 1.7 (1.2-2.2); Alkaline Phosphatase 63 U/L (46-116); Anion Gap 9 (7-16); Aspartate Amino Transferase 19 U/L (0-34); BUN/Creatinine Ratio 26 Ratio (12-20); Bilirubin,Total 0.3 mg/dL (0.3-1.2); Blood Urea Nitrogen 18 mg/dL (9-23); Calcium 9.9 mg/dL (8.3-10.6); Calcium (Corrected) 10.1 mg/dL (8.5-10.1); Carbon Dioxide > 40.0 mMol/L (20.0-31.0); Chloride 90 mMol/L (98-107); Creatinine (Component) 0.7 mg/dL (0.6-1.3); Estimated Creatinine Clearance 134.5 mL/min (>60); Globulin 2.2 gm/dL (2.3-3.5); Glucose 108 mg/dL (74-106); Magnesium 1.9 mg/dL (1.6-2.6); Osmolality,Calculated 280 (275-295); Potassium 4.9 mMol/L (3.4-5.1); Sodium 139 mMol/L (136-145); Troponin I < 0.020 ng/mL (0.0-0.045); eGFR > 60 See Note
[2024-10-25 01:25] LABS: Amphetamine/Methamp Scrn,U Negative (Negative); Barbiturate Screen,Urine Negative (Negative); Benzodiazepines Screen,Urine Negative (Negative); Benzoylecgonine Screen, Ur Negative (Negative); Fentanyl Screen,Urine Negative (Negative); Opiate Screen,Urine Negative (Negative); THC Screen,Urine Negative (Negative)
[2024-10-25 01:31] LABS: B-Type Natriuretic Peptide 51 pg/mL (0-100)
--- NOTE | 2024-10-25 02:07 | PC.NURSE ---
RT AT BEDSIDE PLACING PT BIPAP.
[2024-10-25 03:53] LABS: Base Excess 27 (-3-3); HCO3 57 mEq/L (20-26); Inspired Oxygen, FIO2 45 %; O2 Saturation 93 % (91-98); PCO2 88 mmHg (32.0-48.0); PO2 68 mmHg (83-108); pH, Arterial 7.42 (7.35-7.45)
[2024-10-25 03:54] LABS: Allen Test Performed/OK; Puncture Site Right Radial
--- NOTE | 2024-10-25 04:49 | PC.NURSE ---
DR. FERRARA AT BEDSIDE ASSESSING PT AT THIS TIME.
--- NOTE | 2024-10-25 04:56 | ESHP_ITS ---
Documentation for date of: 10/25/24 [facility] History of Present Illness Chief complaint: Generalized weakness and shortness of breath History of present illness: Patient is a poor historian and does not answer questions A 64-year-old male with a past medical history of hypertension, hyperlipidemia, COPD on 4 L home oxygen, history of A-fib on Eliquis previously but discontinued during previous admission as there is no evidence of A-fib on EKGs over the past few years, history of seizures not on any medication, HFpEF (on diuretics), still actively smoking cigarettes, recurrent admission for COPD exacerbation with recent admission in 10/03/2024 and underwent intubation at that time was brought in by ambulance with chief complaints of generalized weakness and shortness of breath. Patient stated that since discharge from the hospital since last hospital admission, he is having generalized weakness and shortness of breath despite using oxygen and inhalers which recently worsened over last 2 days. Generalized weakness was progressing and reported that when he is walking the knees gave away and had a fall 2 times on the day of admission. Denies trauma to head or back. On the day of admission, as he is feeling severe shortness of breath despite being on oxygen and feeling weak he called ambulance. EMS noted saturation of 85% on 4 L of oxygen and tachypnea for which patient received a breathing treatment during the transport to hospital. In the ED, patient was noted to have saturation of 92 with 4 L oxygen and asked patient is still having tachypnea he received 1 more breathing treatment in the ED. Denies fever, cough, abdominal pain, nausea, vomiting, burning micturition. Reported that he is compliant with his home medication and using oxygen 4 L throughout the day. Also endorsed that he is still smoking cigarettes <1 pack per day. Denied usage of BiPAP/CPAP at home. Morning blood pressure 170/85 mmHg, pulse rate 91 bpm, respiratory rate 20/min, ED Course: -Initial vitals were temperature 98.1 ?F, SpO2 96% with 4 L oxygen -Labs significant for mild anemia, microcytic, thrombocytopenia, CMP showed bicarb >40, rest of the labs were unremarkable. Initial ABG showed compensated respiratory acidosis with metabolic alkalosis with pCO2 of 99. Later pCO2 improved to 88 -In the ED, patient was given nebulization and a dose of steroid -Patient was admitted for acute on chronic hypoxic/hypercapnic respiratory failure Past medical history: hypertension, hyperlipidemia, COPD on 4 L home oxygen, history of A-fib on Eliquis previously but discontinued, history of seizures not on any medication, HFpEF (on diuretics) Past surgical history: Not significant Social history: Active smoker, alcohol use unknown, denies other illicit drug abuse. Review of Systems Review of Systems Narrative Review of Systems: Constitutional: No Weight Change, No Fever, No Chills, No Night Sweats, Fatigue, Malaise ENT/Mouth: No Hearing Changes, No Ear Pain, No Nasal Congestion, No Sinus Pain, No Hoarseness, No sore throat, No Rhinorrhea, No Swallowing Difficulty Eyes: No Eye Pain, No Swelling, No Redness, No Foreign Body, No Discharge, No Vision Changes Cardiovascular: No Chest Pain, SOB, No PND, No Dyspnea on Exertion, No Orthopnea, No Edema, No Palpitations Respiratory: No Cough, No Sputum, No Wheezing, No Dyspnea Gastrointestinal: No Nausea, No Vomiting, No Diarrhea, No Constipation, No Pain, No Heartburn, No Anorexia, No Dysphagia, No Hematochezia, No Melena, No Flatulence, No Jaundice Genitourinary: No Dysuria, No Urinary Frequency, No Hematuria, No Urinary Incontinence, No Urgency, No Flank Pain, No Urinary Flow Changes, No Hesitancy Musculoskeletal: No Arthralgias, No Myalgias, No Joint Swelling, No Joint Stiffness, No Back Pain, No Neck Pain, No Injury History Skin: No Skin Lesions, No Pruritis Neuro: No Weakness, No Numbness, No Paresthesias, No Loss of Consciousness, No Syncope, No Dizziness, No Headache, No Coordination Changes, Recent Falls Exam Vital Signs Temp Pulse Resp BP Pulse Ox O2 Del Method O2 Flow Rate 98.1 F 70 20 140/79 H 100 BiPAP 4 10/24/24 23:53 10/25/24 04:00 10/25/24 04:00 10/25/24 04:00 10/25/24 04:00 10/25/24 04:00 10/25/24 00:33 FiO2 45 10/25/24 04:00 Narrative Exam General: Awake. On BiPAP HEENT: Normocephalic, atraumatic, mucous membranes moist. Heart: Regular rate and rhythm, no murmurs. Lungs: Overall decreased breath sounds noted due to body habitus. Abdomen: Soft, nondistended, nontender, positive bowel sounds. ?No guarding or rebound tenderness. Neurologic: Alert and oriented x3, no gross neurological deficit, and patient able to move all 4 extremities. Extremities: No edema. Peripheral vascular changes are noted with the discoloration extending up to the mid calf. Peripheral pulses are felt Skin: No rash or ecchymoses. Results: Labs 10/25/24 00:26 10/25/24 00:26 Labs: Short CBC 10/25/24 Range/Units 00:26 WBC 5.4 (3.8-10.6) Thou/mm3 Hgb 12.5 L (13.5-16.0) g/dL Hct 41.9 (41.0-53.0) % Plt Count 89 L (140-440) Thou/mm3 BMP 10/25/24 00:26 Sodium 139 Potassium 4.9 Chloride 90 L Carbon Dioxide > 40.0 H BUN 18 Creatinine 0.7 Glucose 108 H Calcium 9.9 Cardiac Enzymes 10/25/24 Range/Units 00:26 Troponin I < 0.020 (0.0-0.045) ng/mL Liver Function 10/25/24 Range/Units 00:26 Total Bilirubin 0.3 (0.3-1.2) mg/dL AST 19 (0-34) U/L ALT 12 (10-49) U/L Alkaline Phosphatase 63 (46-116) U/L Albumin 3.8 (3.4-4.8) gm/dL Urine 10/24/24 Range/Units 00:52 Urine Color Lt-Yellow (Lt Yel-Yel) Urine Clarity Clear (Clear/Hazy) Urine pH 6.5 (5.0-7.0) Ur Specific [place] 1.012 (1.001-1.035) Urine Protein Negative (Neg - Trace) Urine Glucose (UA) Negative (Negative) ABG Interpretation ABG results: 10/25/24 10/25/24 00:42 03:50 ABG pH 7.38 7.42 ABG pCO2 99 H* 88 H* D ABG pO2 91 68 L D ABG HCO3 59 H 57 H ABG O2 Saturation 95 93 ABG Base Excess 27 H 27 H Quality Measures Quality Measures none Medications Home Medications and Allergies Allergies Allergy/AdvReac Type Severity Reaction Status Date / Time No Known Allergies Allergy Verified 09/15/24 12:27 Visit Medications Acetaminophen (Acetaminophen 325 Mg Tablet) 650 mg PO Q6H PRN PRN Reason: Fever >101.5 Stop: 11/24/24 04:47 Albuterol/Ipratropium (Albuterol/Ipratropium (Duoneb) Rt Marita 3 Ml Nebu) 3 ml INH Q6HRRT FREDIS Stop: 11/24/24 06:59 Enoxaparin Sodium (Enoxaparin Sod Inj 40 Mg/0.4 Ml Syringe) 60 mg SC QDAY FREDIS Stop: 11/08/24 08:59 Magnesium Hydroxide (Milk Of Magnesia Susp 30 Ml Udc) 30 ml PO QDAY PRN; Protocol PRN Reason: CONSTIPATION Stop: 11/24/24 04:47 Ondansetron HCl (Ondansetron Inj 2 Mg/Ml Inj 2 Ml) 4 mg IV Q6H PRN; Protocol PRN Reason: NAUSEA OR VOMITING Stop: 11/24/24 04:47 Pantoprazole Sodium (Pantoprazole 40 Mg Tablet) 40 mg PO QDAY [facility] Stop: 11/24/24 08:59 Discontinued Medications Albuterol/Ipratropium (Albuterol/Ipratropium (Duoneb) Rt Marita 3 Ml Nebu) 3 ml INH X1 ONE Stop: 10/24/24 23:54 Last Admin: 10/25/24 00:29 Dose: 3 ml Methylprednisolone Sodium Succinate (Methylprednisolone Sod Succ 62.5 Mg/Ml 2ml Vial) 125 mg IV X1 ONE Stop: 10/24/24 23:54 Last Admin: 10/25/24 00:29 Dose: 125 mg Assessment & Plan Plan A 64-year-old male with a past medical history of hypertension, hyperlipidemia, COPD on 4 L home oxygen, history of A-fib on Eliquis previously but discontinued during previous admission as there is no evidence of A-fib on EKGs over the past few years, history of seizures not on any medication, HFpEF (on diuretics), still actively smoking cigarettes, recurrent admission for COPD exacerbation with recent admission in 10/03/2024 and underwent intubation at that time was brought in by ambulance with chief complaints of generalized weakness and shortness of breath. # Acute on chronic hypoxic/hypercapnic respiratory failure # Generalized weakness, fall # On home oxygen 4 L through nasal cannula # Active smoker -Patient had history of severe COPD using 4 L oxygen at home -Patient had recurrent admissions and [facility] for acute exacerbations of COPD and was intubated multiple times. Recent admission is in 10/03/2024 during which she was intubated. -Patient denied usage of CPAP/BiPAP at home but continued to use 4 L oxygen throughout the day -Reported that he is having generalized weakness since recent hospital discharge which worsened 2 days before the hospital admission -Also endorsed that he had a fall due to his knees giving away and denied trauma to head/back. Denies fever, nausea, abdominal pain, burning micturition -As patient felt severe shortness of breath and generalized weakness on the day of admission, called EMS. Patient was found to have 85% saturation with 4 L oxygen at home for which she received breathing treatment during transport to the hospital. -Patient was found to be alert, awake and oriented by the time he came to ED with saturation of 92% with 4 L oxygen and received a breathing treatment. -Labs revealed mild anemia, thrombocytopenia, severe metabolic alkalosis. Initial ABG showed respiratory acidosis with metabolic alkalosis with pCO2 of 99 -Chest x-ray showed mild cardiomegaly with no patchy infiltrate -In the ED, patient was started on BiPAP. Later pCO2 improved to 88 Plan -Continue noninvasive mechanical ventilation -Patient is using 40 Mg furosemide twice daily, that could be causing metabolic alkalosis and decreasing the respiratory drive causing CO2 retention. Held furosemide for now as patient does not appear to be fluid overload -Restart Lasix based on patient's clinical condition -Nebulizations as needed -Head end elevation # History of hypertension -Patient is using furosemide 40 Mg p.o. twice daily and eplerenone 25 Mg p.o. daily as home medication -Blood pressure at the time of admission is 170/85 mmHg and repeat blood pressure later is 140/79 mmHg Plan -Patient is n.p.o. for now. Later start low-sodium diet. -Start blood pressure medication depending on blood pressure # History of HFpEF -Echo done on 09/28/2024 showed Normal LV size and function. Grade I diastolic dysfunction. Estimated EF 55-60%. Mild RV dilation. Normal RV function. Trace MR, TR. -Patient is using furosemide, eplerenone and dapagliflozin for HFpEF Plan -Diuretic was held, as it is suspected to be causing metabolic alkalosis and decreasing the respiratory drive causing more CO2 retention and as currently patient does not appear fluid overloaded -Restart diuretics based on patient's condition and give acetazolamide based on patient condition. # Anemia # Thrombocytopenia -Hemoglobin is 12.5, MCV 104, MCH 30.9, MCHC 29.8, platelet count is 89K -B12 is 204 on 08/2024 -Likely due to nutritional deficiency with alcohol intake and started on Nephro- Luis Fernando supplements # History of ? A-fib # History of seizures -Patient was on Eliquis till last admission but discontinued as there is no evidence found over the past few years -Patient is not currently on any seizure medications. # Morbid obesity -BMI is 31.9 kg/m? -Patient had history of hypertension. HbA1c, TSH and lipid profile is within normal limits -Recommended weight loss based on outpatient basis as it could be contributing to GUICHO/OHS Hospital Maintenance: Dispo: Med/tele DVT ppx: Lovenox GI ppx: Protonix Diet: n.p.o for now as patient is on bipap IV lines: Peripheral Code status: Full code Patient plan of care was discussed with the attending physician, Dr. Mary Kate Way, PGY1 Attending Provider Attestation/Addendum Patient was seen and evaluated in ER bed #19. He is on BiPAP. He was admitted for generalized weakness, fall, increasing shortness of breath. During my evaluation the patient is arousable. He answers briefly to questions he is confused. The patient is not using accessory muscles of respiration but he has fast shallow breathing. He has no audible wheezing. He is slightly tachycardic. Patient is afebrile. He was given bronchodilator treatment and Solu-Medrol admitted for COPD exacerbation. The patient has diastolic congestive heart failure, chronic respiratory failure on home oxygen. He has chronic lower extremity skin changes. He has minimal ankle edema. He has no calf tenderness.
--- NOTE | 2024-10-25 05:33 | PC.NURSE ---
Addendum entered by Rebecca Stephens RN 10/25/24 06:49: INFORMED DR ABERNATHY PHARMACIST ALSO RECOMMENDS LOVENOX DOSE TO BE CHANGED TO 30MG BID SC. PER DR ABERNATHY, SHE WILL CHANGE ORDER. Original Note: DR ABERNATHY AT BEDSIDE ASSESSING PT. ALSO INFORMED DR ABERNATHY THAT PHARMACIST PHANH FROM [facility] REQUESTING CONFIRMATION ON LOVENOX ORDER, DUE TO PT PLT COUNT 89. PER DR ABERNATHY OKAY TO VERIFY LOVENOX ORDER AT THIS TIME.
--- NOTE | 2024-10-25 09:42 | PC.NURSE ---
10/25/2024 0942 patient refused all meds and assessment and admission questions does not want anything done charge nurse aware and Rn aware.
[2024-10-25] MEDS: AZITHROMYCIN 250 MG TABLET 500 MG PO (10:34)
--- NOTE | 2024-10-25 11:49 | ESPR_ITS ---
<Statement entered by Suzy Payan MD - 10/25/24 14:08> Patient seen and examined at bedside. He was on BIPAP 16/ but intermittently removes it himself and becomes hypoxic in the high 80s. CO2 on ABG improved from 90s to 80s with normal pH. Will continue BIPAP with intermittent breaks while on NC as patient wanting to eat. For his acute on chronic hypoxic respiratory failure secondary to COPD exacerbation, will continue BIPAP as tolerated, IV antibiotics, and give steroids for wheezing. Suzy Payan MD PGY-3 Documentation for date of: 10/25/24 Subjective Subjective Interval history: Padilla Lowe is a 64-year-old male with a past medical history of hypertension, hyperlipidemia, COPD on 4 L home oxygen and active smoker, history of A-fib (previously on Eliquis but DC'd on previous admission), history of seizures (no medications), and HFpEF (echo 09/28/2024: EF 55 to 60%, grade 1 diastolic dysfunction) who was admitted for acute on chronic hypoxic/hypercapnic respiratory failure. No acute overnight events. Seen and examined at bedside. Denies shortness of breath, chest discomfort, cough, wheezing. Will continue BiPAP but with intermittent breaks while on nasal cannula as patient would like to eat. Will start on mild dose of steroids for COPD exacerbation. Exam Vital Signs Temp Pulse Resp BP Pulse Ox O2 Del Method O2 Flow Rate 96.8 F 69 16 130/67 94 L BiPAP 6 10/25/24 08:00 10/25/24 11:32 10/25/24 11:32 10/25/24 08:00 10/25/24 11:32 10/25/24 08:00 10/25/24 11:32 FiO2 45 10/25/24 10:44 Narrative Exam General: AOx3, no acute distress, able to speak full sentences HEENT: NC/AT, mucous membranes moist, bilateral sclera anicteric Cardiovascular: regular rate and rhythm, S1/S2 present, no murmurs appreciated Pulmonary: clear to auscultation bilaterally, no rales/rhonchi/wheezes Abdominal: soft, non-tender, non-distended, no rebound/guarding, normal bowel sounds present Musculoskeletal: normal ROM, no peripheral edema Skin: Chronic venous stasis changes Neuro: CN II-XII intact, no focal deficits Objective Labs 10/25/24 00:26 10/25/24 00:26 Labs: Laboratory Results - last 24 hr 10/24/24 10/25/24 10/25/24 00:52 00:26 00:42 WBC 5.4 RBC 4.05 L Hgb 12.5 L Hct 41.9 MCV 104 H MCH 30.9 MCHC 29.8 L RDW Std Deviation 54.8 H Plt Count 89 L Neut % (Auto) 73 Lymph % (Auto) 16 [place] % (Auto) 9 Eos % (Auto) 0 Baso % (Auto) 0 Neut # (Auto) 4.0 Lymph # (Auto) 0.9 L [place] # (Auto) 0.5 Eos # (Auto) 0.0 Baso # (Auto) 0.0 Immature Gran # (Auto) 0.06 H Absolute Nucleated RBC 0.00 Immature Gran % 1 H Nucleated RBC % 0 Puncture Site Right Radial ABG pH 7.38 ABG pCO2 99 H* ABG pO2 91 ABG HCO3 59 H ABG O2 Saturation 95 ABG Base Excess 27 H FiO2 36 Sodium 139 Potassium 4.9 Chloride 90 L Carbon Dioxide > 40.0 H Anion Gap 9 BUN 18 Creatinine 0.7 Estim Creat Clear Calc 134.5 eGFR > 60 BUN/Creatinine Ratio 26 H Glucose 108 H Calculated Osmolality 280 Calcium 9.9 Corrected Calcium 10.1 Magnesium 1.9 Total Bilirubin 0.3 AST 19 ALT 12 Alkaline Phosphatase 63 Troponin I < 0.020 B-Natriuretic Peptide 51 Total Protein 6.0 Albumin 3.8 Globulin 2.2 L Albumin/Globulin Ratio 1.7 Ur Collection Type Clean Catch Urine Color Lt-Yellow Urine Clarity Clear Urine pH 6.5 Ur Specific [place] 1.012 Urine Protein Negative Urine Glucose (UA) Negative Urine Ketones Negative Urine Blood Negative Urine Nitrite Negative Urine Bilirubin Negative Urine Urobilinogen (Auto) Negative Ur Leukocyte Esterase Negative Urine RBC 1 Urine WBC 1 Ur Squamous Epith Cells < 1 Urine Bacteria None Hyaline Casts < 1 Ur Culture Indicated? Not Indicated Urine Opiates Screen Negative Urine Fentanyl Screen Negative Ur Barbiturates Screen Negative U Amphetamin/Meth Scrn Negative U Benzodiazepines Scrn Negative U Cocaine Metab Screen Negative U Marijuana (THC) Screen Negative 10/25/24 03:50 WBC RBC Hgb Hct MCV MCH MCHC RDW Std Deviation Plt Count Neut % (Auto) Lymph % (Auto) [place] % (Auto) Eos % (Auto) Baso % (Auto) Neut # (Auto) Lymph # (Auto) [place] # (Auto) Eos # (Auto) Baso # (Auto) Immature Gran # (Auto) Absolute Nucleated RBC Immature Gran % Nucleated RBC % Puncture Site Right Radial ABG pH 7.42 ABG pCO2 88 H* D ABG pO2 68 L D ABG HCO3 57 H ABG O2 Saturation 93 ABG Base Excess 27 H FiO2 45 Sodium Potassium Chloride Carbon Dioxide Anion Gap BUN Creatinine Estim Creat Clear Calc eGFR BUN/Creatinine Ratio Glucose Calculated Osmolality Calcium Corrected Calcium Magnesium Total Bilirubin AST ALT Alkaline Phosphatase Troponin I B-Natriuretic Peptide Total Protein Albumin Globulin Albumin/Globulin Ratio Ur Collection Type Urine Color Urine Clarity Urine pH Ur Specific [place] Urine Protein Urine Glucose (UA) Urine Ketones Urine Blood Urine Nitrite Urine Bilirubin Urine Urobilinogen (Auto) Ur Leukocyte Esterase Urine RBC Urine WBC Ur Squamous Epith Cells Urine Bacteria Hyaline Casts Ur Culture Indicated? Urine Opiates Screen Urine Fentanyl Screen Ur Barbiturates Screen U Amphetamin/Meth Scrn U Benzodiazepines Scrn U Cocaine Metab Screen U Marijuana (THC) Screen ABG Interpretation ABG results: 10/25/24 10/25/24 00:42 03:50 ABG pH 7.38 7.42 ABG pCO2 99 H* 88 H* D ABG pO2 91 68 L D ABG HCO3 59 H 57 H ABG O2 Saturation 95 93 ABG Base Excess 27 H 27 H Quality Measures Quality Measures none Assessment & Plan Assessment Current Active Medications: Generic Name Dose Route Start Last Admin Trade Name Freq PRN Reason Stop Dose Admin Acetaminophen 650 mg 10/25/24 04:48 Acetaminophen 325 Mg Tablet PO 11/24/24 04:47 Q6H PRN Fever >101.5 Albuterol/Ipratropium 3 ml 10/25/24 07:00 10/25/24 06:45 Albuterol/Ipratropium (Duoneb) Rt Marita 3 Ml Nebu INH 11/24/24 06:59 3 ml Q6HRRT FREDIS Administration Albuterol/Ipratropium 3 ml 10/25/24 07:59 Albuterol/Ipratropium (Duoneb) Rt Marita 3 Ml Nebu INH 11/24/24 07:58 Q2HR PRN SHORTNESS OF BREATH OR WHEEZE Azithromycin 500 mg 10/25/24 10:00 10/25/24 10:34 Azithromycin 250 Mg Tablet PO 11/01/24 09:59 500 mg QDAY FREDIS Administration Enoxaparin Sodium 40 mg 10/25/24 09:00 10/25/24 09:38 Enoxaparin Sod Inj 40 Mg/0.4 Ml Syringe SC 11/08/24 08:59 Not Given QDAY FREDIS Magnesium Hydroxide 30 ml 10/25/24 04:48 Milk Of Magnesia Susp 30 Ml Udc PO 11/24/24 04:47 QDAY PRN CONSTIPATION Protocol Methylprednisolone Sodium Succinate 40 mg 10/25/24 11:45 Methylprednisolone Sod Succ 40 Mg Vial IVP 10/29/24 11:44 QDAY FREDIS Ondansetron HCl 4 mg 10/25/24 04:48 Ondansetron Inj 2 Mg/Ml Inj 2 Ml IV 11/24/24 04:47 Q6H PRN NAUSEA OR VOMITING Protocol Pantoprazole Sodium 40 mg 10/25/24 09:00 10/25/24 09:37 Pantoprazole 40 Mg Tablet PO 11/24/24 08:59 Not Given QDAY [facility] Vitamin B Complex/Vit C/Folic Acid 1 tab 10/25/24 09:00 10/25/24 09:37 Vit B12/Vit C/Fa (Nephrovite) Tablet PO 11/24/24 08:59 Not Given QDAY [facility] Eric Padilla Lowe is a 64-year-old male with a past medical history of hypertension, hyperlipidemia, COPD on 4 L home oxygen and active smoker, history of A-fib (previously on Eliquis but DC'd on previous admission), history of seizures (no medications), and HFpEF (echo 09/28/2024: EF 55 to 60%, grade 1 diastolic dysfunction) who was admitted for acute on chronic hypoxic/hypercapnic respiratory failure. #Acute on chronic hypoxic/hypercapnic respiratory failure #Generalized weakness, fall #History of severe COPD using 4 L oxygen at home ? Continue BiPAP ? Home Lasix 40 mg twice daily held due to possible contribution to alkalosis/CO2 retention and decreasing respiratory drive ? DuoNebs scheduled ? Solu-Medrol 40 mg daily for 5 days (10/25-) #History of hypertension Home furosemide 40 mg BID and eplerenone 25 mg daily BP on admission 170/85 mmHg and repeat BP later 140/79 mmHg ? Start home antihypertensives as deemed appropriate #History of HFpEF Echo 09/28/2024: Grade I diastolic dysfunction. EF 55-60%. Mild RV dilation. Trace MR, TR. Home furosemide, eplerenone and dapagliflozin ? Lasix held as above #? History of a-fib ? Previously on Eliquis until previous admission but DC'd as no evidence of A- fib within the last few years #History of seizures ? Will observe, not on antiepileptics Hospital management: Disposition: Med telemetry Fluids: Not indicated Diet: Regular diet but n.p.o. while on BiPAP Lines: Peripheral DVT prophylaxis: Enoxaparin GI prophylaxis: Pantoprazole CODE STATUS: full code ----- Plan discussed with attending physician Dr. Rolon and senior resident physician Dr. Ora Avendaño MD PGY-1 Internal Medicine Attending Provider Attestation/Addendum I, Kristina Rolon DO, attest that I was physically present for the malone portions of the service and evaluated the patient with the resident and I reviewed and discussed the case with the resident and agree with the resident's findings and plans of care as documented above Patient seen and evaluated this AM. Patient is well known to service and noncompliant. Patient continues to be chronic tobacco user and has been removing BiPap this morning. Patient states that he has not eaten for four days since he began to fall ill. He states he does not want to wear the BiPap since he is hungry. Encouraged patient to use BiPap with rest. Will place on NC during day. Continue with IV steroids, breathing treatment and azithromycin. Mild wheezing noted in b/l lung hein on exam.
--- NOTE | 2024-10-25 15:55 | PC.SS ---
SS met with pt regarding his d/c plan. Pt is alert/oriented. Pt was admitted for Acute Hypercapnic Respiratory Failure. Pt confirmed demographic and contact information is correct. Pt resides with friends. Pt ambulates independently without assistance or DME. Pt is ok with ADLs. SS provided verbal d/c options for d/c to home or SNF. Patient's choice is SNF and does not have preference. Pt is currently on 6 liters of O2. Pt utilizes O2 at home from [facility]. Pt is agreeable for SS to send inquiry to local SNF. Patient's health insurance requires PT evaluation for insurance authorization for SNF. Pt named his son, Daniel Lowe medical decision maker if he is unable. Pt states he followed up with PCP last month. DC plan: SNF Next of Kin: Daniel Lowe, son, phone# [phone] PCP: Nickolas Jones from [facility] Address: Correct on facesheet
--- NOTE | 2024-10-25 21:49 | PC.NURSE ---
upon initial assessment, pts IV was out and pt stated he self removed it. New IV was placed, upon later assessment pt also self removed the IV and when attempted to insert a new IV pt refused.
--- NOTE | 2024-10-25 21:56 | PC.NURSE ---
Dr bautista notified of pt refusin IV access, Dr states its okay since he is not getting IV medications right now.
[2024-10-26] VITALS (9 sets, daily range): BP systolic 114–138; BP diastolic 61–76; PULSE 64–79; RESP 12–26; TEMP 36.2–37.2; O2SAT 89–99; BMI 14.0
[2024-10-26] MEDS: ALBUTEROL/IPRATROPIUM (Duoneb) RT SOL 3 ML NEBU INH ×4 (01:51→19:52)
[2024-10-26 05:02] LABS: Basophils % (Auto) 0 % (0-2.5); Eosinophils % (Auto) 0 % (0-10); Hematocrit 36.4 % (41.0-53.0); Hemoglobin 11.4 g/dL (13.5-16.0); Immature Granulocytes % (Auto) 1 % (0-0); Immature Granulocytes Auto 0.08 Thou/mm3 (0.00-0.00); Lymphocytes # (Auto) 1.2 Thou/mm3 (1.0-4.8); Lymphocytes % (Auto) 20 % (10-50); Mean Corpuscular HGB Conc 31.3 g/dl (31.0-37.0); Mean Corpuscular Hemoglobin 31.1 pg (25.0-35.0); Mean Corpuscular Volume 99 fL (80-100); Monocytes # (Auto) 0.5 Thou/mm3 (0.0-0.8); Monocytes % (Auto) 8 % (0-12); Neutrophils # (Auto) 4.1 Thou/mm3 (1.8-7.7); Neutrophils % (Auto) 70 % (37-80); Nucleated Red Blood Cell % 0 /100 WBC (0); Platelet Count 101 Thou/mm3 (140-440); Red Blood Count 3.67 Miln/mm3 (4.50-5.90); White Blood Count 5.8 Thou/mm3 (3.8-10.6)
[2024-10-26 05:40] LABS: BUN/Creatinine Ratio 26 Ratio (12-20); Blood Urea Nitrogen 18 mg/dL (9-23); Calcium 9.1 mg/dL (8.3-10.6); Chloride 92 mMol/L (98-107); Creatinine (Component) 0.7 mg/dL (0.6-1.3); Estimated Creatinine Clearance 134.5 mL/min (>60); Glucose 112 mg/dL (74-106); Osmolality,Calculated 278 (275-295); Potassium 3.6 mMol/L (3.4-5.1); Sodium 138 mMol/L (136-145); eGFR > 60 See Note
[2024-10-26 05:41] LABS: Anion Gap 6 (7-16); Carbon Dioxide > 40.0 mMol/L (20.0-31.0)
[2024-10-26] MEDS: AZITHROMYCIN 250 MG TABLET 500 MG PO (08:10)
[2024-10-26] MEDS: VIT B12/Vit C/FA (Nephrovite) TABLET 1 TAB PO (08:11)
[2024-10-26] MEDS: PANTOPRAZOLE 40 MG TABLET PO (08:11)
[2024-10-26] MEDS: ENOXAPARIN SOD INJ 40 MG/0.4 ML SYRINGE SC (08:12)
[2024-10-26] MEDS: predniSONE 40 MG, predniSONE 10 MG 50 MG PO (08:12)
--- NOTE | 2024-10-26 10:47 | ESPR_ITS ---
<Statement entered by Yvonne Tipton MD - 10/27/24 06:35> I attest that I was physically present for the evaluation, physical examination, lab and imaging review of the patient with the residents. I discussed the case with the residents and agree with the findings and plans of care as documented above. Patient is feeling much better without new complaints. Pending PT evaluation and SNF placement. Yvonne Tipton MD <Statement entered by Tray Hurt MD - 10/26/24 13:31> Patient seen and assessed at bedside this morning. Patient states to be feeling much better today. Patient is back to baseline home O2. Pending PT evaluation?insurance authorization for SNF placement. Will continue with oral steroids and azithromycin as patient pulled out IVs twice. Case discussed with team. Tray Hurt MD PGY3. Documentation for date of: 10/26/24 Subjective Subjective Interval history: Padilla Lowe is a 64-year-old male with a past medical history of hypertension, hyperlipidemia, COPD on 4 L home oxygen and active smoker, history of A-fib (previously on Eliquis but DC'd on previous admission), history of seizures (no medications), and HFpEF (echo 09/28/2024: EF 55 to 60%, grade 1 diastolic dysfunction) who was admitted for acute on chronic hypoxic/hypercapnic respiratory failure. 10/25: No acute overnight events. Seen and examined at bedside. Denies shortness of breath, chest discomfort, cough, wheezing. Will continue BiPAP but with intermittent breaks while on nasal cannula as patient would like to eat. Will start on mild dose of steroids for COPD exacerbation. 10/26: No acute overnight events. Patient pulled out IV access overnight so we will continue to give medications p.o. Currently on 4 L nasal cannula, which is his baseline home oxygen and saturating between 88 to 92%. He is medically cleared for discharge but given the patient would like to go to SNF, will require prior authorization and physical therapy evaluation. As it is a holiday, anticipate that he will not be able to be discharged today. Exam Vital Signs Temp Pulse Resp BP Pulse Ox O2 Del Method O2 Flow Rate 97.5 F 77 15 127/61 89 L Nasal Cannula 4 10/26/24 08:00 10/26/24 08:00 10/26/24 08:00 10/26/24 08:00 10/26/24 08:00 10/26/24 08:00 10/26/24 08:00 FiO2 45 10/26/24 08:00 Narrative Exam General: AOx3, no acute distress, able to speak full sentences HEENT: NC/AT, mucous membranes moist, bilateral sclera anicteric Cardiovascular: regular rate and rhythm, S1/S2 present, no murmurs appreciated Pulmonary: clear to auscultation bilaterally, no rales/rhonchi/wheezes Abdominal: soft, non-tender, non-distended, no rebound/guarding, normal bowel sounds present Musculoskeletal: normal ROM, no peripheral edema Skin: Chronic venous stasis changes Neuro: CN II-XII intact, no focal deficits Objective Labs 10/26/24 04:28 10/26/24 04:28 Labs: Laboratory Results - last 24 hr 10/26/24 04:28 WBC 5.8 RBC 3.67 L Hgb 11.4 L Hct 36.4 L MCV 99 MCH 31.1 MCHC 31.3 RDW Std Deviation 53.0 H Plt Count 101 L Neut % (Auto) 70 Lymph % (Auto) 20 [place] % (Auto) 8 Eos % (Auto) 0 Baso % (Auto) 0 Neut # (Auto) 4.1 Lymph # (Auto) 1.2 [place] # (Auto) 0.5 Eos # (Auto) 0.0 Baso # (Auto) 0.0 Immature Gran # (Auto) 0.08 H Absolute Nucleated RBC 0.00 Immature Gran % 1 H Nucleated RBC % 0 Sodium 138 Potassium 3.6 D Chloride 92 L Carbon Dioxide > 40.0 H Anion Gap 6 L BUN 18 Creatinine 0.7 Estim Creat Clear Calc 134.5 eGFR > 60 BUN/Creatinine Ratio 26 H Glucose 112 H Calculated Osmolality 278 Calcium 9.1 Magnesium 2.0 ABG Interpretation ABG results: 10/25/24 10/25/24 00:42 03:50 ABG pH 7.38 7.42 ABG pCO2 99 H* 88 H* D ABG pO2 91 68 L D ABG HCO3 59 H 57 H ABG O2 Saturation 95 93 ABG Base Excess 27 H 27 H Quality Measures Quality Measures none Assessment & Plan Assessment Current Active Medications: Generic Name Dose Route Start Last Admin Trade Name Freq PRN Reason Stop Dose Admin Acetaminophen 650 mg 10/25/24 04:48 Acetaminophen 325 Mg Tablet PO 11/24/24 04:47 Q6H PRN Fever >101.5 Albuterol/Ipratropium 3 ml 10/25/24 07:00 10/26/24 06:44 Albuterol/Ipratropium (Duoneb) Rt Marita 3 Ml Nebu INH 11/24/24 06:59 3 ml Q6HRRT FREDIS Administration Albuterol/Ipratropium 3 ml 10/25/24 07:59 Albuterol/Ipratropium (Duoneb) Rt Marita 3 Ml Nebu INH 11/24/24 07:58 Q2HR PRN SHORTNESS OF BREATH OR WHEEZE Azithromycin 500 mg 10/25/24 10:00 10/26/24 08:10 Azithromycin 250 Mg Tablet PO 11/01/24 09:59 500 mg QDAY FREDIS Administration Enoxaparin Sodium 40 mg 10/25/24 09:00 10/26/24 08:12 Enoxaparin Sod Inj 40 Mg/0.4 Ml Syringe SC 11/08/24 08:59 40 mg QDAY FREDIS Administration Magnesium Hydroxide 30 ml 10/25/24 04:48 Milk Of Magnesia Susp 30 Ml Udc PO 11/24/24 04:47 QDAY PRN CONSTIPATION Protocol Nicotine 7 mg 10/26/24 09:00 10/26/24 09:09 Nicotine Patch 7 Mg/24 Hr Patch.Td24 TOP 11/25/24 08:59 Not Given QDAY [facility] Ondansetron HCl 4 mg 10/25/24 04:48 Ondansetron Inj 2 Mg/Ml Inj 2 Ml IV 11/24/24 04:47 Q6H PRN NAUSEA OR VOMITING Protocol Pantoprazole Sodium 40 mg 10/25/24 09:00 10/26/24 08:11 Pantoprazole 40 Mg Tablet PO 11/24/24 08:59 40 mg QDAY FREDIS Administration Prednisone 40 mg/ Prednisone 50 mg 10/26/24 09:00 10/26/24 08:12 10 mg PO 11/25/24 08:59 50 mg QDAY FREDIS Administration Vitamin B Complex/Vit C/Folic Acid 1 tab 10/25/24 09:00 10/26/24 08:11 Vit B12/Vit C/Fa (Nephrovite) Tablet PO 11/24/24 08:59 1 tab QDAY FREDIS Administration Plan Padilla Lowe is a 64-year-old male with a past medical history of hypertension, hyperlipidemia, COPD on 4 L home oxygen and active smoker, history of A-fib (previously on Eliquis but DC'd on previous admission), history of seizures (no medications), and HFpEF (echo 09/28/2024: EF 55 to 60%, grade 1 diastolic dysfunction) who was admitted for acute on chronic hypoxic/hypercapnic respiratory failure. #Acute on chronic hypoxic/hypercapnic respiratory failure #Generalized weakness, fall #History of severe COPD using 4 L oxygen at home ? Continue BiPAP ? Azithromycin 500 mg p.o. daily (10/25-) ? Prednisone 50 mg p.o. daily ? IV Solu-Medrol (10/25) DC'd as patient pulled out lines ? DuoNebs scheduled ? Home Lasix 40 mg twice daily held due to possible contribution to alkalosis/CO2 retention and decreasing respiratory drive #History of hypertension BP on admission 170/85 mmHg and repeat BP later 140/79 mmHg ? Hold home furosemide 40 mg BID and eplerenone 25 mg daily ? Start antihypertensives as deemed appropriate #History of HFpEF Echo 09/28/2024: Grade I diastolic dysfunction. EF 55-60%. Mild RV dilation. Trace MR, TR. Home furosemide, eplerenone and dapagliflozin ? Lasix held as above #? History of a-fib ? Previously on Eliquis until previous admission but DC'd as no evidence of A- fib within the last few years #History of seizures ? Will observe, not on antiepileptics Hospital management: Disposition: Med telemetry Fluids: Not indicated Diet: Regular diet but n.p.o. while on BiPAP Lines: Peripheral DVT prophylaxis: Enoxaparin GI prophylaxis: Pantoprazole CODE STATUS: full code ----- Plan discussed with attending physician Dr. Tipton and senior resident physician Dr. Blu Avendaño MD PGY-1 Internal Medicine
--- NOTE | 2024-10-26 11:15 | PC.SS ---
Addendum entered by Fernanda Merritt 10/26/24 12:53: PT eval submitted via [facility] to [facility] Addendum entered by Fernanda Merritt 10/26/24 11:27: SS met with pt to discuss SNF referral and to inquire if pt has a preference. Pt stated he has been to [facility] before and would like to return if possible. Original Note: SNF referral submitted, pending PT eval to update inquiry on [facility]
--- NOTE | 2024-10-26 13:57 | PC.SS ---
SS met with pt at bedside to update him on SNF referral. SS informed pt all appropriate documentation has been sent to [facility]. He does require authorization but SS will keep him updated.
--- NOTE | 2024-10-26 15:46 | PC.SS ---
BRYAN LVL-1 submitted and downloaded into file. File exchange also to [facility].
--- NOTE | 2024-10-26 16:40 | PC.NURSE ---
Pt stated last bowel movement was 4 days ago, pt was offered milk of magnesia PRN, pt refused.
--- NOTE | 2024-10-26 16:44 | PC.NURSE ---
Attempted to complete med reconciliation, Pt is unable to tell what medication he takes at home.
--- NOTE | 2024-10-26 21:30 | PC.NURSE ---
Patient took bipap off, placed back on 4l NC, spO2 at 95%.
[2024-10-27] VITALS (13 sets, daily range): BP systolic 120–143; BP diastolic 55–62; PULSE 67–84; RESP 14–22; TEMP 36.3–36.9; O2SAT 94–99
[2024-10-27] MEDS: ALBUTEROL/IPRATROPIUM (Duoneb) RT SOL 3 ML NEBU INH ×2 (00:55→08:48)
[2024-10-27 06:00] LABS: Basophils % (Auto) 0 % (0-2.5); Eosinophils % (Auto) 0 % (0-10); Hematocrit 37.1 % (41.0-53.0); Hemoglobin 11.8 g/dL (13.5-16.0); Immature Granulocytes % (Auto) 1 % (0-0); Immature Granulocytes Auto 0.06 Thou/mm3 (0.00-0.00); Lymphocytes # (Auto) 1.3 Thou/mm3 (1.0-4.8); Lymphocytes % (Auto) 21 % (10-50); Mean Corpuscular HGB Conc 31.8 g/dl (31.0-37.0); Mean Corpuscular Hemoglobin 30.7 pg (25.0-35.0); Mean Corpuscular Volume 97 fL (80-100); Monocytes # (Auto) 0.5 Thou/mm3 (0.0-0.8); Monocytes % (Auto) 7 % (0-12); Neutrophils # (Auto) 4.5 Thou/mm3 (1.8-7.7); Neutrophils % (Auto) 71 % (37-80); Nucleated Red Blood Cell % 0 /100 WBC (0); Platelet Count 109 Thou/mm3 (140-440); RDW Standard Deviation 52.3 fL (35.1-43.9); Red Blood Count 3.84 Miln/mm3 (4.50-5.90); White Blood Count 6.4 Thou/mm3 (3.8-10.6)
[2024-10-27 06:23] LABS: Anion Gap 3 (7-16); BUN/Creatinine Ratio 27 Ratio (12-20); Blood Urea Nitrogen 19 mg/dL (9-23); Calcium 10.1 mg/dL (8.3-10.6); Carbon Dioxide 39.6 mMol/L (20.0-31.0); Chloride 96 mMol/L (98-107); Creatinine (Component) 0.7 mg/dL (0.6-1.3); Estimated Creatinine Clearance 134.5 mL/min (>60); Glucose 106 mg/dL (74-106); Magnesium 2.3 mg/dL (1.6-2.6); Osmolality,Calculated 279 (275-295); Potassium 3.8 mMol/L (3.4-5.1); Sodium 139 mMol/L (136-145); eGFR > 60 See Note
--- NOTE | 2024-10-27 08:37 | PC.SS ---
Addendum entered by Kylee Rivera 10/27/24 15:03: SS follow up note; SS was notified by Smitha from [facility] that auth was submitted today around 2PM. Original Note: SS follow up note; SS contacted Smitha from [facility] in regards to auth. Smitha reported she would start auth and contact when auth is obtained.
[2024-10-27] MEDS: PANTOPRAZOLE 40 MG TABLET PO (08:59)
[2024-10-27] MEDS: AZITHROMYCIN 250 MG TABLET 500 MG PO (08:59)
[2024-10-27] MEDS: VIT B12/Vit C/FA (Nephrovite) TABLET 1 TAB PO (08:59)
[2024-10-27] MEDS: predniSONE 40 MG, predniSONE 10 MG 50 MG PO (08:59)
[2024-10-27] MEDS: ENOXAPARIN SOD INJ 40 MG/0.4 ML SYRINGE SC (08:59)
--- NOTE | 2024-10-27 09:25 | PC.NURSE ---
Pt high fall risk. Very adamant about wanting to get up and go to the bathroom. Encouraged pt to continue to let staff know when pt needs to go to the restroom.
[2024-10-27] MEDS: Furosemide 40 MG TABLET PO (11:46)
--- NOTE | 2024-10-27 14:49 | ESPR_ITS ---
<Statement entered by Suzy Payan MD - 10/27/24 15:27> I discussed with and supervised my co-resident involved in the care of this patient. I agree with the assessment and plan as documented above. Patient baseline O2, not wheezing. Continue 5 day treatment of steroids and azithromycin for acute COPD exacerbation. Will discontinue scheduled duonebs and start scheduled LAMA and rescue inhaler prn. Patient states has multiple inhalers at home but does not use any of them. Will discharge with LABA-LAMA and rescue inhaler on discharge. Pending insurance authorization for SNF placement. Suzy Payan MD PGY-3 Documentation for date of: 10/27/24 Subjective Subjective Interval history: Padilla Lowe is a 64-year-old male with a past medical history of hypertension, hyperlipidemia, COPD on 4 L home oxygen and active smoker, history of A-fib (previously on Eliquis but DC'd on previous admission), history of seizures (no medications), and HFpEF (echo 09/28/2024: EF 55 to 60%, grade 1 diastolic dysfunction) who was admitted for acute on chronic hypoxic/hypercapnic respiratory failure. 10/25: No acute overnight events. Seen and examined at bedside. Denies shortness of breath, chest discomfort, cough, wheezing. Will continue BiPAP but with intermittent breaks while on nasal cannula as patient would like to eat. Will start on mild dose of steroids for COPD exacerbation. 10/26: No acute overnight events. Patient pulled out IV access overnight so we will continue to give medications p.o. Currently on 4 L nasal cannula, which is his baseline home oxygen and saturating between 88 to 92%. He is medically cleared for discharge but given the patient would like to go to SNF, will require prior authorization and physical therapy evaluation. As it is a holiday, anticipate that he will not be able to be discharged today. 10/27: No acute overnight events. Authorization still pending so the patient would not be discharged today as well. Continues to be on 4 L nasal cannula, saturating between 88 and 92% Exam Vital Signs Temp Pulse Resp BP Pulse Ox O2 Del Method O2 Flow Rate 97.3 F 71 18 127/60 94 L Nasal Cannula 3 10/27/24 12:10/27/24 12:10/27/24 12:10/27/24 12:00 10/27/24 12:00 10/27/24 12:00 10/27/24 12:00 FiO2 45 10/26/24 12:00 Narrative Exam General: AOx3, no acute distress, able to speak full sentences HEENT: NC/AT, mucous membranes moist, bilateral sclera anicteric Cardiovascular: regular rate and rhythm, S1/S2 present, no murmurs appreciated Pulmonary: clear to auscultation bilaterally, no rales/rhonchi/wheezes Abdominal: soft, non-tender, non-distended, no rebound/guarding, normal bowel sounds present Musculoskeletal: normal ROM, no peripheral edema Skin: Chronic venous stasis changes Neuro: CN II-XII intact, no focal deficits Objective Labs 10/27/24 04:22 10/27/24 04:22 Labs: Laboratory Results - last 24 hr 10/27/24 04:22 WBC 6.4 RBC 3.84 L Hgb 11.8 L Hct 37.1 L MCV 97 MCH 30.7 MCHC 31.8 RDW Std Deviation 52.3 H Plt Count 109 L Neut % (Auto) 71 Lymph % (Auto) 21 [place] % (Auto) 7 Eos % (Auto) 0 Baso % (Auto) 0 Neut # (Auto) 4.5 Lymph # (Auto) 1.3 [place] # (Auto) 0.5 Eos # (Auto) 0.0 Baso # (Auto) 0.0 Immature Gran # (Auto) 0.06 H Absolute Nucleated RBC 0.00 Immature Gran % 1 H Nucleated RBC % 0 Sodium 139 Potassium 3.8 Chloride 96 L Carbon Dioxide 39.6 H Anion Gap 3 L BUN 19 Creatinine 0.7 Estim Creat Clear Calc 134.5 eGFR > 60 BUN/Creatinine Ratio 27 H Glucose 106 Calculated Osmolality 279 Calcium 10.1 Magnesium 2.3 ABG Interpretation ABG results: 10/25/24 10/25/24 00:42 03:50 ABG pH 7.38 7.42 ABG pCO2 99 H* 88 H* D ABG pO2 91 68 L D ABG HCO3 59 H 57 H ABG O2 Saturation 95 93 ABG Base Excess 27 H 27 H Quality Measures Quality Measures none Assessment & Plan Assessment Current Active Medications: Generic Name Dose Route Start Last Admin Trade Name Freq PRN Reason Stop Dose Admin Acetaminophen 650 mg 10/26/24 11:36 Acetaminophen 325 Mg Tablet PO 11/24/24 04:47 Q6H PRN Fever >101.5 Albuterol/Ipratropium 3 ml 10/25/24 07:59 Albuterol/Ipratropium (Duoneb) Rt Marita 3 Ml Nebu INH 11/24/24 07:58 Q2HR PRN SHORTNESS OF BREATH OR WHEEZE Azithromycin 500 mg 10/25/24 10:00 10/27/24 08:59 Azithromycin 250 Mg Tablet PO 10/30/24 09:59 500 mg QDAY FREDIS Administration Enoxaparin Sodium 40 mg 10/25/24 09:00 10/27/24 08:59 Enoxaparin Sod Inj 40 Mg/0.4 Ml Syringe SC 11/08/24 08:59 40 mg QDAY FREDIS Administration Furosemide 40 mg 10/27/24 10:30 10/27/24 11:46 Furosemide 40 Mg Tablet PO 11/26/24 10:29 40 mg QDAY FREDIS Administration Magnesium Hydroxide 30 ml 10/25/24 04:48 Milk Of Magnesia Susp 30 Ml Udc PO 11/24/24 04:47 QDAY PRN CONSTIPATION Protocol Nicotine 7 mg 10/26/24 09:00 10/27/24 09:03 Nicotine Patch 7 Mg/24 Hr Patch.Td24 TOP 11/25/24 08:59 Not Given QDAY FREDIS Ondansetron HCl 4 mg 10/25/24 04:48 Ondansetron Inj 2 Mg/Ml Inj 2 Ml IV 11/24/24 04:47 Q6H PRN NAUSEA OR VOMITING Protocol Pantoprazole Sodium 40 mg 10/25/24 09:00 10/27/24 08:59 Pantoprazole 40 Mg Tablet PO 11/24/24 08:59 40 mg QDAY FREDIS Administration Prednisone 40 mg/ Prednisone 50 mg 10/26/24 09:00 10/27/24 08:59 10 mg PO 10/30/24 08:59 50 mg QDAY FREDIS Administration Tiotropium [place] 2 puff 10/27/24 09:00 10/27/24 11:12 Tiotropium Br 2.5 Mcg 120 Puff/4 Gm Inhaler INH 11/26/24 08:59 Not Given QDAY FREDIS Vitamin B Complex/Vit C/Folic Acid 1 tab 10/25/24 09:00 10/27/24 08:59 Vit B12/Vit C/Fa (Nephrovite) Tablet PO 11/24/24 08:59 1 tab QDAY FREDIS Administration Plan Padilla Lowe is a 64-year-old male with a past medical history of hypertension, hyperlipidemia, COPD on 4 L home oxygen and active smoker, history of A-fib (previously on Eliquis but DC'd on previous admission), history of seizures (no medications), and HFpEF (echo 09/28/2024: EF 55 to 60%, grade 1 diastolic dysfunction) who was admitted for acute on chronic hypoxic/hypercapnic respiratory failure. #Acute on chronic hypoxic/hypercapnic respiratory failure #Generalized weakness, fall #History of severe COPD using 4 L oxygen at home ? Azithromycin 500 mg p.o. daily (10/25-) ? Prednisone 50 mg p.o. daily ? IV Solu-Medrol (10/25) DC'd as patient pulled out lines ? Tiotropium daily ? DuoNebs as needed #History of HFpEF #History of hypertension Echo 09/28/2024: Grade I diastolic dysfunction. EF 55-60%. Mild RV dilation. Trace MR, TR. BP on admission 170/85 mmHg and repeat BP later 140/79 mmHg Home furosemide, eplerenone and dapagliflozin ? Lasix 40 mg p.o. daily ? Start other antihypertensives as deemed appropriate ? Lasix held as above #? History of a-fib ? Previously on Eliquis until previous admission but DC'd as no evidence of A- fib within the last few years #History of seizures ? Will observe, not on antiepileptics Hospital management: Disposition: Med telemetry Fluids: Not indicated Diet: Regular diet but n.p.o. while on BiPAP Lines: Peripheral DVT prophylaxis: Enoxaparin GI prophylaxis: Pantoprazole CODE STATUS: full code ----- Plan discussed with attending physician Dr. Tipton and senior resident physician Dr. Ora Avendaño MD PGY-1 Internal Medicine Attending Provider Attestation/Addendum I attest that I was physically present for the evaluation, physical examination, lab and imaging review of the patient with the residents. I discussed the case with the residents and agree with the findings and plans of care as documented above. Patient continues to be stable, awaiting insurance authorization for SNF placement. Yvonne Tipton MD
[2024-10-28] VITALS (10 sets, daily range): BP systolic 121–134; BP diastolic 56–94; PULSE 61–79; RESP 14–20; TEMP 36.1–36.4; O2SAT 93–99; BMI 31.8
[2024-10-28 06:23] LABS: Magnesium 2.2 mg/dL (1.6-2.6)
[2024-10-28] MEDS: TIOTROPIUM BR 2.5 MCG 120 PUFF/4 GM INHALER INH (06:46)
[2024-10-28] MEDS: ENOXAPARIN SOD INJ 40 MG/0.4 ML SYRINGE SC (09:42)
[2024-10-28] MEDS: ACETAzolaMIDE 250 MG TABLET 500 MG PO (09:42)
[2024-10-28] MEDS: Furosemide 40 MG TABLET PO (09:43)
[2024-10-28] MEDS: predniSONE 40 MG, predniSONE 10 MG 50 MG PO (09:43)
[2024-10-28] MEDS: PANTOPRAZOLE 40 MG TABLET PO (09:43)
[2024-10-28] MEDS: AZITHROMYCIN 250 MG TABLET 500 MG PO (09:43)
[2024-10-28] MEDS: VIT B12/Vit C/FA (Nephrovite) TABLET 1 TAB PO (09:44)
--- NOTE | 2024-10-28 10:00 | PC.SS ---
SS follow up note; SS received a call from Smitha from [facility] and she reported auth was still pending at the time.
--- NOTE | 2024-10-28 10:30 | ESPR_ITS ---
<Statement entered by Gustavo Monique MD - 10/28/24 15:09> Patient was seen and examined at the bedside. Patient is currently pending insurance authorization.He wanted to go home however he was explained that we are waiting on authorization, likely discharge afterwards to longterm facility. Diamox was given x 1. Blood pressure remained stable. Labs were not taken this morning as patient refused. Will likely anticipate discharge once authorization is completed. I saw and examined the patient, and I agree with current management stated by Dr Lanie MD,PGY1. Plan of care was discussed with the attending physician and resident physician. Disclaimer: Despite multiple revisions, due to the dictation software being used, the document bellow may not be free of grammatical errors including phonetic/typographic errors. However, this does not deter from our commitment to providing health care in the patient's best interest in mind. Dr. Kayden MD, PGY 2 Documentation for date of: 10/28/24 Subjective Subjective Interval history: Patient is a 64-year-old male with a past medical history of hypertension, hyperlipidemia, COPD on 4 L home oxygen and active smoker, history of A-fib (previously on Eliquis but DC'd on previous admission), history of seizures (no medications), and HFpEF (echo 09/28/2024: EF 55 to 60%, grade 1 diastolic dysfunction) who was admitted for acute on chronic hypoxic/hypercapnic respiratory failure. No overnight events reported. Patient examined at bedside. Patient is morning was in an ornery mood. Patient stated he did not have pulmonary issues, despite having a past medical history of COPD exacerbations and continue smoker. Patient stated his only medical probelm was his him pain secondaryt o history of injury from work. Patient stated he was back at his baseline requiring 4 liters of oxygen on nasal cannula. Patient denied dyspnea. Denied chest pain. Denied any pyrexia or chills overnight. Patient stated he worked with PT yesterday and is scheduled for PT today as well. Exam Vital Signs Temp Pulse Resp BP Pulse Ox O2 Del Method O2 Flow Rate 97.3 F 68 16 134/78 H 94 L Nasal Cannula 4 10/28/24 08:00 10/28/24 09:43 10/28/24 08:00 10/28/24 09:43 10/28/24 08:00 10/28/24 08:00 10/28/24 08:00 FiO2 45 10/28/24 08:00 Narrative Exam General Appearance: Alert & Oriented X3, well-nourished male who is lying in bed in no acute distress HEENT: Skull symmetrical and atraumatic. Conjunctivae pin and moist. Pupils equal, round, reactive to light and accommodation (PERRL). External ear without lesion or discharge. Straight, nares patient, mucosa pink, no discharge. No thyroid nodule appreciated. No cervical lymphadenopathy. Cardio: Normal Rate and Rhythm with S1 and S2 heart sounds. No murmurs or extra heart sounds auscultated. No bruits on carotid auscultation. No peripheral edema or cyanosis. Lungs: Symmetric with good expansion. Chest and back non-tender. Breath sounds vesicular with wheezing bilaterally Abdomen: Non-tender, Non-distended, Normal Reactive Bowel Sounds Neuro: Alert, cooperative, oriented to person, place, and time. Speech clear. CN grossly intact. Upper motor strength 5/5 and Lower motor strength 5/5. Sensation intact. Objective Labs 10/27/24 04:22 10/27/24 04:22 Labs: Laboratory Results - last 24 hr 10/28/24 04:45 Magnesium 2.2 ABG Interpretation ABG results: 10/25/24 10/25/24 00:42 03:50 ABG pH 7.38 7.42 ABG pCO2 99 H* 88 H* D ABG pO2 91 68 L D ABG HCO3 59 H 57 H ABG O2 Saturation 95 93 ABG Base Excess 27 H 27 H Quality Measures Quality Measures none Assessment & Plan Assessment Current Active Medications: Generic Name Dose Route Start Last Admin Trade Name Campbellq PRN Reason Stop Dose Admin Acetaminophen 650 mg 10/26/24 11:36 Acetaminophen 325 Mg Tablet PO 11/24/24 04:47 Q6H PRN Fever >101.5 Albuterol/Ipratropium 3 ml 10/25/24 07:59 Albuterol/Ipratropium (Duoneb) Rt Marita 3 Ml Nebu INH 11/24/24 07:58 Q2HR PRN SHORTNESS OF BREATH OR WHEEZE Azithromycin 500 mg 10/25/24 10:00 10/28/24 09:43 Azithromycin 250 Mg Tablet PO 10/30/24 09:59 500 mg QDAY FREDIS Administration Enoxaparin Sodium 40 mg 10/25/24 09:00 10/28/24 09:42 Enoxaparin Sod Inj 40 Mg/0.4 Ml Syringe SC 11/08/24 08:59 40 mg QDAY FREDIS Administration Furosemide 40 mg 10/27/24 10:30 10/28/24 09:43 Furosemide 40 Mg Tablet PO 11/26/24 10:29 40 mg QDAY FREDIS Administration Magnesium Hydroxide 30 ml 10/25/24 04:48 Milk Of Magnesia Susp 30 Ml Udc PO 11/24/24 04:47 QDAY PRN CONSTIPATION Protocol Nicotine 7 mg 10/26/24 09:00 10/27/24 09:03 Nicotine Patch 7 Mg/24 Hr Patch.Td24 TOP 11/25/24 08:59 Not Given QDAY FREDIS Ondansetron HCl 4 mg 10/25/24 04:48 Ondansetron Inj 2 Mg/Ml Inj 2 Ml IV 11/24/24 04:47 Q6H PRN NAUSEA OR VOMITING Protocol Pantoprazole Sodium 40 mg 10/25/24 09:00 10/28/24 09:43 Pantoprazole 40 Mg Tablet PO 11/24/24 08:59 40 mg QDAY FREDIS Administration Prednisone 40 mg/ Prednisone 50 mg 10/26/24 09:00 10/28/24 09:43 10 mg PO 10/30/24 08:59 50 mg QDAY FREDIS Administration Tiotropium [place] 2 puff 10/27/24 09:00 10/28/24 06:46 Tiotropium Br 2.5 Mcg 120 Puff/4 Gm Inhaler INH 11/26/24 08:59 2 puff QDAY FREDIS Administration Vitamin B Complex/Vit C/Folic Acid 1 tab 10/25/24 09:00 10/28/24 09:44 Vit B12/Vit C/Fa (Nephrovite) Tablet PO 11/24/24 08:59 1 tab QDAY FREDIS Administration Plan Padilla Lowe is a 64-year-old male with a past medical history of hypertension, hyperlipidemia, COPD on 4 L home oxygen and active smoker, history of A-fib (previously on Eliquis but DC'd on previous admission), history of seizures (no medications), and HFpEF (echo 09/28/2024: EF 55 to 60%, grade 1 diastolic dysfunction) who was admitted for acute on chronic hypoxic/hypercapnic respiratory failure. #Acute on chronic hypoxic/hypercapnic respiratory failure #Generalized weakness, fall #Respiratory Acidosis likely #History of severe COPD using 4 L oxygen at home Patient has a past medical history of COPD likely history of CO2 retainer with previous blood gases showing increased, thus likely respiratory acidosis given elevated bicarbonate. Acetazolamide 500 mg IV X 1 given. Continue Azithromycin for COPD exacerbation from 10/25/2024-10/29/2024 Plan: ? Azithromycin 500 mg p.o. daily (10/25-10/29/2024) for 5 day course. ? Prednisone 50 mg p.o. daily, DC on 10/28/2023. ? IV Solu-Medrol (10/25) DC'd as patient pulled out lines ? Tiotropium daily ? DuoNebs as needed -Acetazolamide 500 mg IV X 1 -Oxygen Support, goal of 88-92% SpO2 -No labs given pending SNF #History of HFpEF, EF 55%-60% # Diastolic Dysfuction Grade I #History of hypertension Patient has a past medical history of HFpEF with diastolic dysfunction grade I with no edema noted on physical exam. Given persevere ejection fraction, may still work towards GDMT. Echo 09/28/2024: Grade I diastolic dysfunction. EF 55-60%. Mild RV dilation. Trace MR, TR. Home furosemide, eplerenone and dapagliflozin Plan: -Holding eplerenone and dapagliflozin for soft blood pressure ?Continue Lasix 40 mg p.o. daily ?Start other antihypertensives as deemed appropriate #? History of a-fib ? Previously on Eliquis until previous admission but DC'd as no evidence of A- fib within the last few years #History of seizures ? Will observe, not on antiepileptics #Tobacco Use Disorder Patient has a past medical history of tobacco use and currently still an active smoker. Plan: Nicotine Patch Scheduled. Hospital management: Disposition: Med telemetry Fluids: Not indicated Diet: Regular diet but n.p.o. while on BiPAP Lines: Peripheral DVT prophylaxis: Enoxaparin 40 mg SC QDay GI prophylaxis: Pantoprazole CODE STATUS: full code - The patient's plan was discussed with attending Dr. Tipton and senior residents Dr. Kayden Dela Cruz MD PGY1 Internal Medicine Attending Provider Attestation/Addendum I attest that I was physically present for the evaluation, physical examination, lab and imaging review of the patient with the residents. I discussed the case with the residents and agree with the findings and plans of care as documented above. At bedside, patient does not have any new complaints and continue to feel well. Stated that he wishes to go home. Explained to him that we are waiting for insurance authorization but was insistent on getting discharged and was threatening to leave AMA if discharge does not happen by the evening. Discussed with the case management, still waiting for insurance authorization. Yvonne Tipton MD
--- NOTE | 2024-10-28 12:00 | PC.NURSE ---
[facility] Called and said they are no longer contracted with Padilla Lowe's insurance. He now goes through [facility]. Was given a phone number to contact [facility] about approval for SNF. [phone]. Contacted [facility] and made aware. [facility] will contact [facility]
--- NOTE | 2024-10-28 12:18 | PC.SS ---
SS follow up note; SS was contacted by patient's nurse reporting that Patient's IPA is no longer [facility] and is now through [facility] [phone].
--- NOTE | 2024-10-28 16:21 | PC.SS ---
SS follow up note; SS received a call from Smitha from [facility] and she reported that patient has a new IPA and she sent out Auth again to the new IPA. [facility] is no longer patient's IPA patient Insurance is now through [facility]. Smitha submitted authorization to [employer].
[2024-10-29] VITALS (10 sets, daily range): BP systolic 106–151; BP diastolic 64–80; PULSE 61–86; RESP 16–26; TEMP 36.3–37.3; O2SAT 93–98
[2024-10-29] MEDS: TIOTROPIUM BR 2.5 MCG 120 PUFF/4 GM INHALER INH (09:00)
[2024-10-29] MEDS: VIT B12/Vit C/FA (Nephrovite) TABLET 1 TAB PO (09:07)
[2024-10-29] MEDS: Furosemide 40 MG TABLET PO (09:07)
[2024-10-29] MEDS: predniSONE 40 MG, predniSONE 10 MG 50 MG PO (09:07)
[2024-10-29] MEDS: PANTOPRAZOLE 40 MG TABLET PO (09:08)
[2024-10-29] MEDS: AZITHROMYCIN 250 MG TABLET 500 MG PO (09:08)
[2024-10-29] MEDS: DAPAGLIFLOZIN PROPANEDIOL 5 MG TABLET PO (12:10)
--- NOTE | 2024-10-29 12:33 | PD.RESPRO ---
Documentation for date of: 10/29/24 Exam Vital Signs Temp Pulse Resp BP Pulse Ox O2 Del Method O2 Flow Rate 97.7 F 86 26 H 106/73 98 Nasal Cannula 4 10/29/24 08:00 10/29/24 09:07 10/29/24 09:03 10/29/24 09:07 10/29/24 09:03 10/29/24 08:00 10/29/24 09:03 FiO2 45 10/28/24 08:00 Objective Labs 10/27/24 04:22 10/27/24 04:22 ABG Interpretation ABG results: 10/25/24 10/25/24 00:42 03:50 ABG pH 7.38 7.42 ABG pCO2 99 H* 88 H* D ABG pO2 91 68 L D ABG HCO3 59 H 57 H ABG O2 Saturation 95 93 ABG Base Excess 27 H 27 H Quality Measures Quality Measures none Assessment & Plan Assessment Current Active Medications: Generic Name Dose Route Start Last Admin Trade Name Freq PRN Reason Stop Dose Admin Acetaminophen 650 mg 10/26/24 11:36 Acetaminophen 325 Mg Tablet PO 11/24/24 04:47 Q6H PRN Fever >101.5 Albuterol/Ipratropium 3 ml 10/25/24 07:59 Albuterol/Ipratropium (Duoneb) Rt Marita 3 Ml Nebu INH 11/24/24 07:58 Q2HR PRN SHORTNESS OF BREATH OR WHEEZE Azithromycin 500 mg 10/25/24 10:00 10/29/24 09:08 Azithromycin 250 Mg Tablet PO 10/30/24 09:59 500 mg QDAY FREDIS Administration Dapagliflozin 5 mg 10/29/24 10:45 10/29/24 12:10 Dapagliflozin Propanediol 5 Mg Tablet PO 11/28/24 10:44 5 mg QAM FREDIS Administration Enoxaparin Sodium 40 mg 10/25/24 09:00 10/29/24 09:09 Enoxaparin Sod Inj 40 Mg/0.4 Ml Syringe SC 11/08/24 08:59 Not Given QDAY FREDIS Furosemide 40 mg 10/27/24 10:30 10/29/24 09:07 Furosemide 40 Mg Tablet PO 11/26/24 10:29 40 mg QDAY FREDIS Administration Magnesium Hydroxide 30 ml 10/25/24 04:48 Milk Of Magnesia Susp 30 Ml Udc PO 11/24/24 04:47 QDAY PRN CONSTIPATION Protocol Nicotine 7 mg 10/26/24 09:00 10/29/24 09:08 Nicotine Patch 7 Mg/24 Hr Patch.Td24 TOP 11/25/24 08:59 Not Given QDAY FREDIS Ondansetron HCl 4 mg 10/25/24 04:48 Ondansetron Inj 2 Mg/Ml Inj 2 Ml IV 11/24/24 04:47 Q6H PRN NAUSEA OR VOMITING Protocol Pantoprazole Sodium 40 mg 10/25/24 09:00 10/29/24 09:08 Pantoprazole 40 Mg Tablet PO 11/24/24 08:59 40 mg QDAY FREDIS Administration Prednisone 40 mg/ Prednisone 50 mg 10/26/24 09:00 10/29/24 09:07 10 mg PO 10/30/24 08:59 50 mg QDAY FREDIS Administration Tiotropium [place] 2 puff 10/27/24 09:00 10/29/24 09:00 Tiotropium Br 2.5 Mcg 120 Puff/4 Gm Inhaler INH 11/26/24 08:59 2 puff QDAY FREDIS Administration Vitamin B Complex/Vit C/Folic Acid 1 tab 10/25/24 09:00 10/29/24 09:07 Vit B12/Vit C/Fa (Nephrovite) Tablet PO 11/24/24 08:59 1 tab QDAY FREDIS Administration
--- NOTE | 2024-10-29 15:26 | PC.NURSE ---
Phone call to Dr. Divya LEWIS me patient at bedside, patient upset with update from on discharge time line, patient states I'm leaving today, I'm not going to stay here for another two days. patient education on the discharge plan, and use of O2 to maintain adequate oxygen saturation and risks of leaving AMA. Patient refuses education and is demanding to leave AMA. AMA paperwork signed by patient and MD and witnessed by Nurse.
--- NOTE | 2024-10-29 15:35 | EVENTNT_ITS ---
Documentation for date of: 10/29/24 Event Note Event Note: -Patient left AGAINST MEDICAL ADVICE at approximately 3:35 PM and signed by resident physician and nurse, Haylee. -Patient's risk and benefits explained. Advised not to leave as patient requires oxygen secondary to COPD and decrease mobility given physical therapy is advised for subacute rehab. Patient's health insurance has been holding patient's discharge as there has not been placement for SNF. [employer] worker, also spoke to patient. Patient continued to be ornery. Explained possible insurance denial of hospital stay and may need to pay out of pocket for hospital care. -Patient was understanding of risk and benefits of meds and no longer wanted to wait. - The patient's plan was discussed with attending Dr. Tipton and senior residents Dr. Kayden Dela Cruz MD PGY1 Internal Medicine
--- NOTE | 2024-10-29 15:45 | PC.SS ---
Inseminator (HAILEY) Petty informed by Dr. Tipton that patient was requesting assistance with speaking to patient about SNF process. SW met with patient [id number] to discuss discharge plan. SW introduced self, role and reason for visit. SW notified patient that Admission Coordinator, Smitha had to double check his IPA plan since he was reassigned to [facility]. SW notified patient that insurance authorization would be provided on Thursday. Patient reported, Well, sign me out, and I will come back on Thursday. SW explained that if patient decided to leave against medical advice, then he would have to come to the ED to see if he requires SNF placement. SW explained that patient uses oxygen so if he would like transportation, then he would ambulance since he is on 3L of O2. Patient explained that he sometimes goes without oxygen for 2 to 3 hours, then drops to 60 to 70 percent. SW explained that it is a dangerous activity and the hospital would not allow to send patient via taxi due to not having oxygen. Patient looked at [facility]ILEY and said, draft my papers; I'm leaving.
--- NOTE | 2024-10-29 15:54 | ESDS_ITS ---
<Statement entered by Yvonne Tipton MD - 10/29/24 16:59> I attest that I was physically present for the evaluation, physical examination, lab and imaging review of the patient with the residents. I discussed the case with the residents and agree with the findings and plans of care as documented below. Yvonne Tipton MD <Statement entered by Gustavo Monique MD - 10/29/24 16:04> Patient was explained regarding risk involved living without oxygen and we are still pending on insurance authorization for SNF placement however he was aware of his condition and wanted to still leave AMA. RN was present at the bedside and witnessed patient's consent of leaving AGAINST MEDICAL ADVICE. Papers were signed and attending physician was notified. transport company manager was updated regarding the plan and onsite case manager herself explained the patient that patient may desat and transport will not be provided given the fact that he wants to leave AMA how ever patient wanted to leave. Case discussed with attending physician. I saw and examined the patient, and I agree with current management stated by Dr Lanie MD,PGY1. Plan of care was discussed with the attending physician and resident physician. Disclaimer: Despite multiple revisions, due to the dictation software being used, the document bellow may not be free of grammatical errors including phonetic/typographic errors. However, this does not deter from our commitment to providing health care in the patient's best interest in mind. Dr. Kayden MD, PGY 2 Planned Discharge Date 10/29/24 DS: Providers Provider Date of admission: 10/25/24 04:48 Primary care physician: Nickolas Jones MD Admitting Provider: Nam Hartmann MD Attending Provider on Admission: Yvonne Tipton MD Consults: 10/25/24 01:59 Referral Respiratory Therapy Stat Comment: 10/25/24 15:58 PT [Referral Physical Therapy] Routine Comment: Physician Instructions: Attending Provider on DC: Muriel Dela Cruz MD Discharging Provider: Muriel Dela Cruz MD DS: Diagnosis Problem List Completed Was Problem List Reviewed/Reconciled?: Yes Hospital Course Hospital Course Hospital course: Summary: Patient is a 64-year-old male with a past medical history of hypertension, hyperlipidemia, COPD on 4 L home oxygen and active smoker, history of A-fib (previously on Eliquis but DC'd on previous admission), history of seizures (no medications), and HFpEF (echo 09/28/2024: EF 55 to 60%, grade 1 diastolic dysfunction) who was admitted for acute on chronic hypoxic/hypercapnic respiratory failure. Patient left against medical advice. Patient was pending SNF for physical therapy and COPD/oxygen requirements. ER Course: -Initial vitals were temperature 98.1 ?F, SpO2 96% with 4 L oxygen -Labs significant for mild anemia, microcytic, thrombocytopenia, CMP showed bicarb >40, rest of the labs were unremarkable. Initial ABG showed compensated respiratory acidosis with metabolic alkalosis with pCO2 of 99. Later pCO2 improved to 88 -In the ED, patient was given nebulization and a dose of steroid -Patient was admitted for acute on chronic hypoxic/hypercapnic respiratory failure Hospital Course: On floors, patient was treated for acute hypoxic respiratory failure as he was requiring increased oxygen needs during admission and later returned to his baseline of nasal cannula 4 L. Patient on azithromycin for COPD exacerbation from October 25, 2024 to October 29, 2024 and did NOT complete course as he left AMA. Respiratory acidosis noted likely secondary to increase CO2 retention from COPD. Acetazolamide given times one 500 mg IV push. DuoNebs as needed tiotropium on board daily. Patient completed course of prednisone. History of HFpEF secondary diastolic dysfunction grade 1 with previous ejection fraction of 55 to 60% and patient was placed on Lasix Lasix 40 mg p.o. daily and started on dapagliflozin. Eplerenone was held given soft blood pressure. Remote history of atrial fibrillation and history of seizures on medication had been DC'd prior to admission. Continued tobacco use disorder. Patient left AGAINST MEDICAL ADVICE on 10/29/2024 as patient was currently pending SNF placement and is having issues with insurance for placement. Physical therapy recommended SNF for continued daily physical therapy to improve functional mobility (secondary to fall experienced several years ago). Patient de-sats to low 70s without oxygen, but despite risks of desatting patient still wished to leave AGAINST MEDICAL ADVICE without oxygen. Patient stated he had home oxygen and would bring it with him during transportation. Patient's family member will be picking him up. Instructions: Patient left against medical advice. Risks and benefits explained. #Acute on chronic hypoxic/hypercapnic respiratory failure #Generalized weakness, fall #Respiratory Acidosis likely #History of severe COPD using 4 L oxygen at home #History of HFpEF, EF 55%-60% # Diastolic Dysfuction Grade I #History of hypertension #History of Atrial Fibilation, rate controlled (medication d/c'd) #History of Seizures #Tobacco Use Disorder - The patient's plan was discussed with attending Dr. Tipton and senior residents Dr. Kayden Dela Cruz MD PGY1 Internal Medicine Time Spent with Patient Time attestation: Total time spent providing and/or coordinating discharge services: at least 35 minutes of care/coordination Exam Vital Signs Temp Pulse Resp BP Pulse Ox O2 Del Method O2 Flow Rate 97.8 F 67 16 128/79 97 Nasal Cannula 4 10/29/24 12:00 10/29/24 12:00 10/29/24 12:00 10/29/24 12:00 10/29/24 12:00 10/29/24 12:00 10/29/24 12:00 FiO2 45 10/29/24 12:00 Narrative Exam General Appearance: Alert & Oriented X3, well-nourished male who is lying in bed in no acute distress HEENT: Skull symmetrical and atraumatic. Conjunctivae pale pink and moist. Pupils equal, round, reactive to light and accommodation (PERRL). External ear without lesion or discharge. Straight, nares patient, mucosa pink, no discharge. No thyroid nodule appreciated. No cervical lymphadenopathy. Cardio: Normal Rate and Rhythm with S1 and S2 heart sounds. No murmurs or extra heart sounds auscultated. No bruits on carotid auscultation. No peripheral edema or cyanosis. Lungs: Symmetric with good expansion. Chest and back non-tender. Breath sounds vesicular with wheezing Abdomen: Non-tender, Non-distended, Normal Reactive Bowel Sounds Neuro: Alert, cooperative, oriented to person, place, and time. Speech clear. CN grossly intact. Upper motor strength 5/5 and Lower motor strength 5/5. Sensation intact. Discharge Plan Plan Patient Disposition: Xfer Skilled Nsg Fac (SNF) Patient condition on transfer: Stable Prescriptions/Referrals Prescriptions/Med Rec: New azithromycin 500 mg tablet 500 mg PO QDAY 3 Days Qty: 3 0RF prednisone 20 mg tablet 40 mg PO QDAY Qty: 6 0RF tiotropium-olodaterol 2.5-2.5 mcg/actuation mist 2 puff inhalation QDAY Qty: 4 0RF Continued albuterol sulfate 90 mcg/actuation aerosol powdr breath activated 2 inh inhalation Q6H PRN (Reason: shortness of breath or wheezing) Qty: 1 3RF Discontinued furosemide 40 mg tablet 40 mg PO BID 30 Days Qty: 60 0RF Referrals: Nickolas Jones MD [Primary Care Provider] - Patient/Caregiver Discharge Instructions Other Discharge Activity Instructions:: - Follow-up with PCP within 1 week of discharge - Take azithromycin and 40mg of prednisone every day for 3 more days for your acute COPD exacerbation - Continue to use CPAP/BiPAP at home - Continue taking all other home medications as prescribed - Return to the ED if symptoms worsen or recur Education Materials: COPD: Coping with Mucus, COPD: Wheezing and Chest Tightness, COPD: Using Inhalers, COPD Meds Print Language: Sierra Leonean Stand Alone Forms: [facility] Award Info., Patient Portal Info Letter Quality Discharge Quality Measures VTE prophylaxis
--- NOTE | 2024-10-29 16:57 | PC.NURSE ---
Patient still in room at 1650, patient is waiting for ride that will bring home oxygen. AMA paperwork signed at [id number]
== END 2024-10-29 20:23 | disposition left against medical advice (07) | DRG 189 ==
LOC: SERX 10-25 04:18 → SERHOLD 10-25 05:15 → S3NX 10-25 07:42
PROVIDERS: Student in an Organized Health Care Education/Training Program; Admitting Provider Internal Medicine; Emergency Provider Emergency Medicine; PCP Family Medicine; Visit Provider Student in an Organized Health Care Education/Training Program
DX: J96.21 Acute and chronic respiratory failure with hypoxia (principal); J44.1 Chronic obstructive pulmonary disease with (acute) exacerbation; I50.32 Chronic diastolic (congestive) heart failure; E87.4 Mixed disorder of acid-base balance; J96.22 Acute and chronic respiratory failure with hypercapnia; I11.0 Hypertensive heart disease with heart failure; E78.5 Hyperlipidemia, unspecified; I48.91 Unspecified atrial fibrillation; D69.6 Thrombocytopenia, unspecified; D64.9 Anemia, unspecified; E66.01 Morbid (severe) obesity due to excess calories; Z68.31 Body mass index [BMI] 31.0-31.9, adult; R29.6 Repeated falls; R56.9 Unspecified convulsions; Z99.81 Dependence on supplemental oxygen; F17.210 Nicotine dependence, cigarettes, uncomplicated; Z79.01 Long term (current) use of anticoagulants; Z53.29 Procedure and treatment not carried out because of patient's decision for other reasons; Z91.199 Patient's noncompliance with other medical treatment and regimen due to unspecified reason; Z79.52 Long term (current) use of systemic steroids; Z79.899 Other long term (current) drug therapy
CPT/HCPCS: 36415; 36600; 71045; 80048; 80053; 80307; 81001; 82803; 83735; 83880; 84484; 85025; 87081; 87811; 93005; 93225; 94640; 94660; 94664; 97161; 97162; 99291; A9270; J1650; J2919; J7512; J8499

== ENCOUNTER 2024-11-08 01:11 | Inpatient (IN) | payer MEDICARE, MEDICAID, SELFPAY ==
[2024-11-08] VITALS (23 sets, daily range): BP systolic 131–157; BP diastolic 57–85; PULSE 68–115; RESP 15–39; TEMP 36.3–36.7; O2SAT 87–97; BMI 33.9
--- NOTE | 2024-11-08 03:07 | PD.EDWEAK ---
ED Weakness RME/HPI General Chief complaint: Weakness Stated complaint: weakness Time Seen by Provider: 11/08/24 02:51 Arrival date/time: 11/08/24 01:11 RME / HPI RME / HPI Narrative: Dr. Yousif?s Main ED Evaluation: 64yo male with pmhx CHF, COPD on 4L, HTN, HLD, aFib presents to the ED for a chief complaint of shortness of breath. Patient states he finished his steroids and antibiotics yesterday after being discharged from here on 10/29/24. Patient states he was having to switch around his oxygen tanks today to prevent them from running out and developed shortness of breath. He states his productive cough has improved since he was discharged. He denies any fever, chills, sweating or any other associated symptoms. No known allergies. Related Data Previous Rx's ?Medication ?Instructions ?Recorded albuterol sulfate 90 mcg/actuation 2 inh inhalation Q6H PRN shortness 09/20/24 breath activated powder inhaler of breath or wheezing #1 ea prednisone 20 mg tablet 40 mg (2 x 20 mg) PO QDAY #6 tabs 10/26/24 tiotropium 2.5 mcg-olodaterol 2.5 2 puff inhalation QDAY #4 grams 10/27/24 mcg/actuation mist for inhalation Allergies Allergy/AdvReac Type Severity Reaction Status Date / Time No Known Allergies Allergy Verified 09/15/24 12:27 Review of Systems Review of Systems Systems Reviewed: All systems reviewed, normal except as documented ED Exam Narrative Physical exam: GENERAL APPEARANCE: AxOx4, generally well-appearing, no acute distress. HEENT: NC, AT. MMM. EOMI, clear conjunctiva, oropharynx clear. NECK: Supple without lymphadenopathy. No stiffness or restricted ROM. HEART: Normal rate and regular rhythm, normal S1/S1, no m/r/g LUNGS: Very poor air exchange. Faint expiratory wheezes. Tachypneic. ABDOMEN: Soft, nontender, nondistended with good bowel sounds heard. BACK: No midline C/T/L spine pain or deformity, No CVAT, no obvious deformity. EXTREMITIES: Without cyanosis, clubbing or edema. MUSCULOSKELETAL: FROM of all major joints, no chest tenderness NEUROLOGICAL: Grossly nonfocal. Alert and oriented, moving all 4 extremities. CN not formally tested but appear grossly intact. Observed to ambulate with normal gait. Skin: Warm and dry without any rash. Course Course Course Narrative: CXR is ordered for determining the etiology of shortness of breath. 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 00 Care 11/08/24 02:53 Active EKG (ED ONLY) *Do not use* NOW Care 11/08/24 03:32 Active Insert IV NOW Care 11/08/24 02:53 Completed NPO NOW Care 11/08/24 03:56 Active Notify provider NEEDED Care 11/08/24 03:54 Active Nurse Swallow Screen X1 Care 11/08/24 04:03 Active Diet NPO (NOW) Diet 11/08/24 03:56 Active EKG (ED Only) Stat Exams 11/08/24 03:32 Ordered XR chest 1V Stat Exams 11/08/24 03:13 Taken ABG [Arterial Blood Gas] Stat Lab 11/08/24 03:09 Completed BNP [B-Type Natriuretic Peptide] Stat Lab 11/08/24 03:03 Completed Blood Culture (Lab) Stat Lab 11/08/24 03:51 Received CBC AM DRAW Lab 11/08/24 05:00 Ordered CBC AM DRAW Lab 11/09/24 05:00 Ordered CBC AM DRAW Lab 11/10/24 05:00 Ordered CBC Stat Lab 11/08/24 03:03 Completed CMP [Comprehensive Metabolic Panel] Stat Lab 11/08/24 03:03 Completed Comprehensive Metabolic Panel AM DRAW Lab 11/08/24 05:00 Ordered Comprehensive Metabolic Panel AM DRAW Lab 11/09/24 05:00 Ordered Comprehensive Metabolic Panel AM DRAW Lab 11/10/24 05:00 Ordered Lactate (Lactic Acid) Stat Lab 11/08/24 03:46 Completed Magnesium AM DRAW Lab 11/08/24 05:00 Ordered Phosphorous AM DRAW Lab 11/08/24 05:00 Ordered Procalcitonin Stat Lab 11/08/24 03:03 Completed Troponin I Stat Lab 11/08/24 03:03 Completed ALBUTEROL RT 0.5ml [Proventil Rt 0.5ml] Med 11/08/24 03:03 Discontinued 10 mg INH X1 ONE ALBUTEROL RT 0.5ml [Proventil Rt 0.5ml] Med 11/08/24 07:00 Discontinued 2.5 mg INH Q4HRRT Acetaminophen Tab [Tylenol Tab] Med 11/08/24 03:54 Active 650 mg PO Q6H PRN Albuterol/Ipratr Rt Marita [Duoneb Rt Marita] Med 11/08/24 07:00 Active 3 ml INH Q4HRRT Enoxaparin [Lovenox] Med 11/08/24 09:00 Active 40 mg SC QDAY Ipratropium [place] Rt Marita [Atrovent Rt Marita] Med 11/08/24 03:03 Discontinued 1 mg INH X1 ONE MethylPREDNISolone. [SoluMEDROL Inj] Med 11/08/24 09:00 Discontinued 40 mg IVP QDAY MethylPREDNISolone. [SoluMEDROL Inj] Med 11/09/24 09:00 Active 40 mg IVP QDAY Ondansetron Inj [Zofran Inj] Med 11/08/24 03:54 Active 4 mg IV Q6H PRN Sodium Chloride Rt Marita 0.9% [NS Rt Marita 0.9%] Med 11/08/24 03:03 Active 3 ml INH PRN PRN Sodium Chloride Rt Marita 0.9% [NS Rt Marita 0.9%] Med 11/08/24 03:54 Active 3 ml INH PRN PRN predniSONE Med 11/08/24 02:59 Discontinued 60 mg PO X1 ONE Code Status Routine Oth 11/08/24 03:54 Ordered BiPAP / CPAP NOW RT 11/08/24 03:32 Active Oxygen Delivery NOW RT 11/08/24 03:54 Active Vital Signs Vital signs: Vital Signs Temperature 97.5 F 11/08/24 01:15 Pulse Rate 100 11/08/24 01:15 Respiratory Rate 16 11/08/24 01:15 Blood Pressure 157/69 H 11/08/24 01:15 Pulse Oximetry (%) 90 L 11/08/24 01:15 Oxygen Delivery Method Nasal Cannula 11/08/24 01:15 Weakness MDM Narrative MDM Narrative:: Scribe Attestation: 11/08/24 Lola Ingram am scribing for and in the presence of Dr. Yousif. Patient data External records reviewed:: [facility] previous records (Per chart review, patient was admitted here on 10/24/24 for hypercapnic respiratory failure, and was supposed to be discharged to a rehab facility, but AMA'd that disposition.) Clinical information provided by:: patient Social determinants that could affect healthcare access:: substance use (smokes cigarettes) Patient has the following chronic illnesses:: CHF, COPD on 4L, HTN, HLD, aFib How is presenting disease/condition affected by chronic disease/condition?: exacerbated by Evaluation data The following diagnostics were reviewed and interpreted by me:: lab results, radiology exam(s) and EKG tracing(s) (ordered, but not completed by the time of admission) Lab and/or radiology exams considered but not ordered:: none Interpretation Summary: ABG shows a low pH of 7.29, pCO2 is elevated at 120, pO2 is low at 48, HCO3 is elevated at 58, according to my interpretation. Patient started on BiPaP. CXR shows diffuse interstitial markings, chronic lung changes, limited 2/2 poor inspiratory effort, no focal changes, according to my interpretation. Medications / Prescriptions Medications or Prescriptions considered but not ordered:: none Medication administrations:: Medication Administration History Acetaminophen (Acetaminophen 325 Mg Tablet) 650 mg PO Q6H PRN PRN Reason: Fever >100.4 or Pain Stop: 12/08/24 03:53 Albuterol/Ipratropium (Albuterol/Ipratropium (Duoneb) Rt Marita 3 Ml Nebu) 3 ml INH Q4HRRT FREDIS Stop: 12/08/24 06:59 Enoxaparin Sodium (Enoxaparin Sod Inj 40 Mg/0.4 Ml Syringe) 40 mg SC QDAY FREDIS Stop: 11/22/24 08:59 Methylprednisolone Sodium Succinate (Methylprednisolone Sod Succ 40 Mg Vial) 40 mg IVP QDAY FREDIS Stop: 11/16/24 08:59 Ondansetron HCl (Ondansetron Inj 2 Mg/Ml Inj 2 Ml) 4 mg IV Q6H PRN; Protocol PRN Reason: NAUSEA OR VOMITING Stop: 12/08/24 03:53 Sodium Chloride (Sodium Chloride Rt Marita 0.9% 3 Ml Nebu) 3 ml INH PRN PRN PRN Reason: SOLN Stop: 12/08/24 03:02 Sodium Chloride (Sodium Chloride Rt Marita 0.9% 3 Ml Nebu) 3 ml INH PRN PRN PRN Reason: SOLN Stop: 12/08/24 03:53 Discontinued Medications Albuterol (Albuterol Rt 2.5 Mg/0.5 Ml Nebu) 10 mg INH X1 ONE Stop: 11/08/24 03:04 Albuterol (Albuterol Rt 2.5 Mg/0.5 Ml Nebu) 2.5 mg INH Q4HRRT FREDIS Stop: 12/08/24 06:59 Ipratropium [place] (Ipratropium Rt 0.5 Mg/ 2.5 Ml Nebu) 1 mg INH X1 ONE Stop: 11/08/24 03:04 Methylprednisolone Sodium Succinate (Methylprednisolone Sod Succ 40 Mg Vial) 40 mg IVP QDAY FREDIS Stop: 11/15/24 08:59 Prednisone (Prednisone 20 Mg Tablet) 60 mg PO X1 ONE Stop: 11/08/24 03:00 Last Admin: 11/08/24 03:22 Dose: 60 mg Documented By: KD see above Consultations Consultation(s) initiated? (list below): Yes Consultation #1 (Physician, Specialty, Details): Discussed case with [Dr. Scott] from Hospitalist service regarding admission. Discussed patients ED course, exam findings, labs, and radiology results. The Hospitalist [agrees] to accept the patient for admission. Time: 03:30 Diagnosis Weakness Differential Diagnosis: other (COPD exacerbation, CHF exacerbation, CO2 narcosis, pneumonia, bronchitis) Most likely diagnosis given after review of the tests above:: hypercarbic respiratory failure Admission Indicated Admission indicated?: indicated Admission Request Was there a request for admission?: Yes Admission Attestation Admission request attestation: Discussed case with [] from Hospitalist service regarding admission. Discussed patients ED course, exam findings, labs, and radiology results. The Hospitalist [agrees,declines] to accept the patient for admission. Disposition Plan Disposition Plan: Admit Critical Care Time Critical Care Time Critical Care Time: Yes Total Critical Care Time (min.): 45 Attestation: The high probability of sudden, clinically significant deterioration in the patient?s condition required the highest level of my preparedness to intervene urgently. The services I provided to this patient were to treat and/or prevent clinically significant deterioration. Services included the following: chart data review, reviewing nursing notes and/or old charts, documentation time, enrollment consultant collaboration regarding findings and treatment options, medication orders and management, direct patient care, vital sign assessments and ordering, interpreting and reviewing diagnostic studies and lab tests. Aggregate critical care time includes only time during which I was engaged in work directly related to the patient?s care, as described above, whether at bedside or elsewhere in the Emergency Department. It did not include time spent performing other reported procedures or the services of residents, students, nurses or physician assistants. Discharge Plan Plan Patient Disposition: Admit Acute Care w/in Hospital Prescriptions/Referrals Prescriptions/Med Rec: No Action prednisone 20 mg tablet 40 mg PO QDAY Qty: 6 0RF tiotropium-olodaterol 2.5-2.5 mcg/actuation mist 2 puff inhalation QDAY Qty: 4 0RF albuterol sulfate 90 mcg/actuation aerosol powdr breath activated 2 inh inhalation Q6H PRN (Reason: shortness of breath or wheezing) Qty: 1 3RF Referrals: Nickolas Jones MD [Primary Care Provider] - In 1 week Problem List Clinical Impression: Hypercapnic respiratory failure, Acute respiratory acidosis, COPD (chronic obstructive pulmonary disease) with acute bronchitis Patient/Caregiver Discharge Instructions Print Language: Sammarinese Stand Alone Forms: [facility] Award Info., Patient Portal Info Letter
--- NOTE | 2024-11-08 03:13 | XR_ITS ---
Examination: AP chest single view Technique: AP portable upright chest single view Exam date and time: November 08, 2024 0316 hrs. Comparison October 25, 2024 Indications: Shortness of breath today Findings: No significant cardiac enlargement Moderate vascular congestion Blunting of the left lateral costophrenic angle No pneumonia or pulmonary edema Impression: Moderate vascular congestion
[2024-11-08 03:17] LABS: Base Excess 24 (-3-3); HCO3 58 mEq/L (20-26); Inspired Oxygen, FIO2 32 %; O2 Saturation 81 % (91-98); PCO2 120 mmHg (32.0-48.0); pH, Arterial 7.29 (7.35-7.45)
[2024-11-08 03:20] LABS: Allen Test Performed/OK; PO2 48 mmHg (83-108); Puncture Site Right Radial
[2024-11-08] MEDS: predniSONE 20 MG TABLET 60 MG PO (03:22)
--- NOTE | 2024-11-08 03:32 | EKG_ITS ---
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
--- NOTE | 2024-11-08 03:38 | PD.EVENT ---
Documentation for date of: 11/08/24 Event Note Event Note: A 64-year-old male presented to the Emergency Room with the chief complaint of shortness of breath. The patient reports that he has been experiencing shortness of breath since earlier in the day while switching between his oxygen tanks to prevent them from running out. He recently completed a course of prednisone and antibiotics prescribed during his hospitalization from October 25, 2024, to October 29, 2024. The patient denies fever, chills, sweating, or other associated symptoms and states that his previously productive cough has improved. He has a history of chronic oxygen use at 4 L/min via nasal cannula. The patient has a past medical history of congestive heart failure with preserved ejection fraction, chronic obstructive pulmonary disease, hypertension, hyperlipidemia, and atrial fibrillation. He has a history of tobacco use disorder and is a current smoker. He was discharged against medical advice on October 29, 2024, following treatment for acute hypoxic respiratory failure related to a COPD exacerbation. Physical therapy recommended SNF placement for continued rehabilitation due to functional mobility deficits secondary to a past fall. He lives at home and uses continuous oxygen. In the Emergency Department, the patient was initially evaluated with vital signs showing a temperature of 97.5?F, heart rate of 100 bpm, respiratory rate of 16 breaths per minute, and blood pressure of 157/69 mmHg. Interventions included initiating BiPAP for [id number] hypoxic and hypercapnic respiratory failure. Laboratory results revealed WBC 11.4, hemoglobin 13.7, carbon dioxide >40, lactic acid 1.4, and procalcitonin 0.18. ABG findings were 7.29/120/48/58, consistent with respiratory acidosis. Chest X-ray showed no significant changes compared to previous imaging. The patient was admitted for further management.
[2024-11-08 03:45] LABS: Basophils % (Auto) 0 % (0-2.5); Eosinophils % (Auto) 0 % (0-10); Hematocrit 45.6 % (41.0-53.0); Hemoglobin 13.7 g/dL (13.5-16.0); Immature Granulocytes % (Auto) 1 % (0-0); Immature Granulocytes Auto 0.12 Thou/mm3 (0.00-0.00); Lymphocytes # (Auto) 0.5 Thou/mm3 (1.0-4.8); Lymphocytes % (Auto) 4 % (10-50); Mean Corpuscular Hemoglobin 30.4 pg (25.0-35.0); Mean Corpuscular Volume 101 fL (80-100); Monocytes # (Auto) 0.3 Thou/mm3 (0.0-0.8); Monocytes % (Auto) 3 % (0-12); Neutrophils # (Auto) 10.5 Thou/mm3 (1.8-7.7); Neutrophils % (Auto) 92 % (37-80); Nucleated Red Blood Cell % 0 /100 WBC (0); Platelet Count 143 Thou/mm3 (140-440); RDW Standard Deviation 53.3 fL (35.1-43.9); White Blood Count 11.4 Thou/mm3 (3.8-10.6)
[2024-11-08 03:55] LABS: B-Type Natriuretic Peptide 48 pg/mL (0-100)
[2024-11-08 03:56] LABS: Lactate (Lactic Acid) 1.4 mMol/L (0.4-2.0)
--- NOTE | 2024-11-08 03:57 | PD.RESHP ---
Documentation for date of: 11/08/24 HPI History of Present Illness Chief complaint: Shortness of breath History of present illness: HPI: Patient is a poor historian and currently on BiPAP and unable to verbalize. Majority of history obtained from chart review. A 64-year-old male with a past medical history of essential hypertension, hyperlipidemia, COPD on 4 L home oxygen, history of A-fib not on anticoagulation as no evidence of A-fib on EKGs over the past few years, history of seizures not on any medication, HFpEF (on diuretics), still actively smoking cigarettes, recurrent admission for COPD exacerbation with recent admission on 10/25/2024 and AMA on 10/29/2024 presented today with a chief complaint of shortness of breath. Apparently patient was doing physical activity today removing his oxygen tanks around so he can have a steady supply. During this activity he became acutely short of breath and called the ambulance. Patient recently completed a 6-day course of prednisone 40 Mg p.o. daily and 3-day course of azithromycin 500 Mg p.o. daily. ED course: BP 157/69, pulse 100, RR 16, temp 97.5 F, SpO2 95% on BiPAP. Labs significant for CL 88, bicarb >40, blood gas pH 7.29, pCO2 120, PaO2 48, bicarb 58, SaO2 % 81. Chest x-ray significant for hyperexpansion of the lung hein bilaterally, mild pericardial edema, increased vascular markings bilaterally. EKG significant for sinus rhythm, Q waves in inferior leads, rate 78, no acute ST changes. In the ED patient received prednisone 60 Mg p.o. x 1, DuoNeb x 1 and BiPAP. Patient will be admitted for treatment and management of acute on chronic respiratory failure with hypoxia secondary to COPD exacerbation. Review of Systems Review of Systems Narrative Review of Systems: GENERAL: Denies fever/chills or diaphoresis. HEENT: Denies headaches or visual changes. Denies discharge. Neuro: Denies unusual weakness or difficulty speaking. CARDIO: Denies chest pain or palpitations. PULM: As above GI: Denies abdominal pain, N/V/C/D. Reports having BMs. URO: Denies buring/itching/pain/urinary changes. MSK/EXT/SKIN: Denies joint/skeletal/muscle pain, issues/changes in upper or lower extremities, itchiness, or superficial pain. PSYCH: Cooperative, pleasant mood & affect. The rest of the review of systems is otherwise negative. Past Medical History Past Medical History NEUROLOGIC: Positive Seizures CARDIAC: Positive Cardiac Disorders, Atrial Fibrillation, Hypercholesterolemia, Congestive Heart Failure and Hypertension RESPIRATORY: Positive Chronic Obstructive Pulmonary Disease (COPD), Asthma and Pneumonia GASTROINTESTINAL: Positive Obesity PSYCHO/SOCIAL: Positive Recreational Drug Use and Anxiety Social History SMOKING STATUS: Current every day smoker Exam Vital Signs Temp Pulse Resp BP Pulse Ox O2 Del Method O2 Flow Rate 97.5 F 93 18 131/75 H 95 Nasal Cannula 4 11/08/24 01:15 11/08/24 02:00 11/08/24 02:00 11/08/24 02:00 11/08/24 03:45 11/08/24 01:26 11/08/24 01: FiO2 40 11/08/24 03:45 Narrative Exam Constitutional Alert, oriented x 3 and moderate distress. Elderly male on BiPAP HEENT Vision grossly intact. Patent nares. Trachea midline Respiratory Chest normal on inspection and no breath sounds auscultated throughout all lung hein bilaterally Cardiovascular S1 and S2 audible, RRR. No murmurs carotid bruit. No gross JVD. Abdominal Soft, obese and non tender to palpation in all quadrants. BS + Genitourinary No bladder tenderness, no flank pain. Normal to palpation Musculoskeletal Extremities tone within normal limits. No LE edema. Neurological CN II - XII grossly intact. Extremity motor and sensation grossly intact. Skin Warm, dry and intact. Dry cracked skin at bottom of feet as well as soot Results: Labs 11/08/24 03:03 11/08/24 03:03 Labs: Short CBC 11/08/24 Range/Units 03:03 WBC 11.4 H (3.8-10.6) Thou/mm3 Hgb 13.7 (13.5-16.0) g/dL Hct 45.6 (41.0-53.0) % Plt Count 143 D (140-440) Thou/mm3 ABG Interpretation ABG results: 11/08/24 03:09 ABG pH 7.29 L ABG pCO2 120 H* ABG pO2 48 L* ABG HCO3 58 H ABG O2 Saturation 81 L ABG Base Excess 24 H Quality Measures Quality Measures none Medications Home Medications and Allergies Home Medications ?Medication ?Instructions ?Recorded ?Confirmed ?Type furosemide 40 mg tablet 40 mg PO BID 11/08/24 11/08/24 History Allergies Allergy/AdvReac Type Severity Reaction Status Date / Time No Known Allergies Allergy Verified 09/15/24 12:27 Visit Medications Sodium Chloride (Sodium Chloride Rt Marita 0.9% 3 Ml Nebu) 3 ml INH PRN PRN PRN Reason: SOLN Stop: 12/08/24 03:02 Discontinued Medications Albuterol (Albuterol Rt 2.5 Mg/0.5 Ml Nebu) 10 mg INH X1 ONE Stop: 11/08/24 03:04 Ipratropium [place] (Ipratropium Rt 0.5 Mg/ 2.5 Ml Nebu) 1 mg INH X1 ONE Stop: 11/08/24 03:04 Prednisone (Prednisone 20 Mg Tablet) 60 mg PO X1 ONE Stop: 11/08/24 03:00 Last Admin: 11/08/24 03:22 Dose: 60 mg Assessment & Plan Plan Patient is a poor historian and currently on BiPAP and unable to verbalize. Majority of history obtained from chart review. A 64-year-old male with a past medical history of essential hypertension, hyperlipidemia, COPD on 4 L home oxygen, history of A-fib not on anticoagulation as no evidence of A-fib on EKGs over the past few years, history of seizures not on any medication, HFpEF (on diuretics), still actively smoking cigarettes, recurrent admission for COPD exacerbation with recent admission on 10/25/2024 and AMA on 10/29/2024 presented today with a chief complaint of shortness of breath. Patient will be admitted for treatment and management of acute on chronic respiratory failure with hypoxia secondary to COPD exacerbation. 1. Acute on chronic respiratory failure with hypoxia secondary to COPD exacerbation 2. Respiratory acidosis with compensatory metabolic alkalosis Patient on 4 L home oxygen On admission patient SOB unable to even speak. On exam absent breath sounds auscultated throughout all lung hein. Chest x-ray significant for hyperexpanded lung hein, pericardial effusion, increased vascular markings bilaterally. ABG significant for pH 7.29, pCO2 120, PaO2 48, bicarb 58, SaO2 % 81. Plan: ? BiPAP for 2 hours ? Sputum culture and Gram stain ordered ? RSV ordered ? DuoNebs Q4 hourly ? Methylpred 40 Mg IV daily to start on [11/09? 3. Chronic diastolic congestive heart failure with preserved ejection fraction [55-60%] Essential hypertension Transthoracic echocardiogram completed on 09/28/2024 findings include: Normal LV size and function. Grade 1 diastolic dysfunction. Estimated EF 55 to 60%. Mild LA dilation. NYHA class C stage IV Home medication eplerenone and dapagliflozin. However patient is noncompliant Plan: ? Day team to decide on resumption of home medication 4. Paroxysmal atrial fibrillation EKG for past few years have been negative for atrial fibrillation. On this admission EKG significant for sinus rhythm, Q waves in inferior leads, rate 78, no acute ST changes. 5. History of seizures Patient not on any medication at home 6. Nicotine dependence Patient currently smokes approximately 1 pack/day and has [id number] smoking history Plan: ? Nicotine patch 21 Mg topical daily 7. Obesity class I BMI 33.9 Health maintenance: Disposition: BiPaP, breathing treatments Diet: NPO Lines: pIVs GI Prophylaxis: NOne Thrombo Prophylaxis: Enoxaparin Code status: FULL CODE Plan of care discussed with Attending Dr. Tyler Alberto MD PGY 1 Attending Provider Attestation/Addendum Pt was evaluated and plan formulated together with the housestaff team. I have reviewed the residents note above and agree with most of its content. Please refer to the residents note for additional details.
[2024-11-08 04:03] LABS: Alanine Aminotransferase 14 U/L (10-49); Albumin, Serum 4.3 gm/dL (3.4-4.8); Alkaline Phosphatase 102 U/L (46-116); Anion Gap 14 (7-16); Aspartate Amino Transferase 10 U/L (0-34); BUN/Creatinine Ratio 19 Ratio (12-20); Bilirubin,Total 0.2 mg/dL (0.3-1.2); Blood Urea Nitrogen 23 mg/dL (9-23); Calcium 9.5 mg/dL (8.3-10.6); Calcium (Corrected) 9.5 mg/dL (8.5-10.1); Carbon Dioxide > 40.0 mMol/L (20.0-31.0); Chloride 88 mMol/L (98-107); Creatinine (Component) 1.2 mg/dL (0.6-1.3); Estimated Creatinine Clearance 80.9 mL/min (>60); Globulin 2.2 gm/dL (2.3-3.5); Glucose 150 mg/dL (74-106); Osmolality,Calculated 289 (275-295); Potassium 4.8 mMol/L (3.4-5.1); Procalcitonin 0.18 ng/ml (0.0-0.49); Sodium 142 mMol/L (136-145); Total Protein 6.5 gm/dL (5.7-8.2); Troponin I < 0.020 ng/mL (0.0-0.045); eGFR > 60 See Note
[2024-11-08] MEDS: ALBUTEROL RT 2.5 MG/0.5 ML NEBU 10 MG INH (04:22)
[2024-11-08] MEDS: IPRATROPIUM RT 0.5 MG/ 2.5 ML NEBU 1 MG INH (04:23)
[2024-11-08 05:14] LABS: Magnesium 2.1 mg/dL (1.6-2.6); Phosphorous 5.1 mg/dL (2.4-5.1)
[2024-11-08 06:04] LABS: Respiratory Syncytial Virus Ag Negative (Negative)
[2024-11-08] MEDS: ALBUTEROL/IPRATROPIUM (Duoneb) RT SOL 3 ML NEBU INH ×5 (07:09→22:11)
--- NOTE | 2024-11-08 07:09 | PC.NURSE ---
REPORT CALLED TO JAY BASHIR. ALL QUESTIONS ASKED AND ANSWERED. PATIENT REMAINS ON BIPAP. PATIENT TRANSFERRED TO FLOOR ON BIPAP. NO DISTRESS NOTED AT TRANSFER.
[2024-11-08 07:24] LABS: Base Excess 23 (-3-3); HCO3 56 mEq/L (20-26); Inspired Oxygen, FIO2 40 %; O2 Saturation 88 % (91-98); PCO2 122 mmHg (32.0-48.0); PO2 61 mmHg (83-108); pH, Arterial 7.27 (7.35-7.45)
[2024-11-08 07:26] LABS: Allen Test Not Performed; Puncture Site Left Radial
[2024-11-08] MEDS: FUROSEMIDE INJ 10 MG/ML 4ML VIAL 40 MG IVP (09:37)
--- NOTE | 2024-11-08 11:45 | ESPR_ITS ---
Documentation for date of: 11/08/24 Subjective Subjective Interval history: Patient seen at bedside today. Patient continues to remain on BiPAP. Light diuresis was added to the patient due to fluid overload state. ABG did not show significant improvement but patient's mentation is improved and overall clinical condition appears to be improving. Will have goals of care discussion in regards to patient's advanced COPD along with patient's son by phone. Continue with management as documented below Exam Vital Signs Temp Pulse Resp BP Pulse Ox O2 Del Method O2 Flow Rate 97.5 F 81 29 H 144/67 H 90 L BiPAP 4 11/08/24 08:00 11/08/24 10:22 11/08/24 10:22 11/08/24 09:37 11/08/24 10:22 11/08/24 08:00 11/08/24 01:26 FiO2 40 11/08/24 10:22 Narrative Exam Constitutional Alert, oriented x 3 and moderate distress. Elderly male on BiPAP HEENT Vision grossly intact. Patent nares. Trachea midline Respiratory Chest normal on inspection and no breath sounds auscultated throughout all lung hein bilaterally Cardiovascular S1 and S2 audible, RRR. No murmurs carotid bruit. No gross JVD. Abdominal Soft, obese and non tender to palpation in all quadrants. BS + Genitourinary No bladder tenderness, no flank pain. Normal to palpation Musculoskeletal Extremities tone within normal limits. No LE edema. Neurological CN II - XII grossly intact. Extremity motor and sensation grossly intact. Skin Warm, dry and intact. Dry cracked skin at bottom of feet as well as soot Objective Labs 11/08/24 03:03 11/08/24 03:03 Labs: Laboratory Results - last 24 hr 11/08/24 11/08/24 11/08/24 03:03 03:09 03:46 WBC 11.4 H RBC 4.50 Hgb 13.7 Hct 45.6 MCV 101 H MCH 30.4 MCHC 30.0 L RDW Std Deviation 53.3 H Plt Count 143 D Neut % (Auto) 92 H Lymph % (Auto) 4 L [place] % (Auto) 3 Eos % (Auto) 0 Baso % (Auto) 0 Neut # (Auto) 10.5 H Lymph # (Auto) 0.5 L [place] # (Auto) 0.3 Eos # (Auto) 0.0 Baso # (Auto) 0.0 Immature Gran # (Auto) 0.12 H Absolute Nucleated RBC 0.00 Immature Gran % 1 H Nucleated RBC % 0 Puncture Site Right Radial ABG pH 7.29 L ABG pCO2 120 H* ABG pO2 48 L* ABG HCO3 58 H ABG O2 Saturation 81 L ABG Base Excess 24 H FiO2 32 Sodium 142 Potassium 4.8 Chloride 88 L Carbon Dioxide > 40.0 H Anion Gap 14 BUN 23 Creatinine 1.2 Estim Creat Clear Calc 80.9 eGFR > 60 BUN/Creatinine Ratio 19 Glucose 150 H Calculated Osmolality 289 Lactic Acid 1.4 Calcium 9.5 Corrected Calcium 9.5 Phosphorus 5.1 Magnesium 2.1 Total Bilirubin 0.2 L AST 10 ALT 14 Alkaline Phosphatase 102 Troponin I < 0.020 B-Natriuretic Peptide 48 Total Protein 6.5 Albumin 4.3 Globulin 2.2 L Albumin/Globulin Ratio 2.0 Procalcitonin 0.18 RSV Rapid 11/08/24 11/08/24 05:40 07:20 WBC RBC Hgb Hct MCV MCH MCHC RDW Std Deviation Plt Count Neut % (Auto) Lymph % (Auto) [place] % (Auto) Eos % (Auto) Baso % (Auto) Neut # (Auto) Lymph # (Auto) [place] # (Auto) Eos # (Auto) Baso # (Auto) Immature Gran # (Auto) Absolute Nucleated RBC Immature Gran % Nucleated RBC % Puncture Site Left Radial ABG pH 7.27 L ABG pCO2 122 H* ABG pO2 61 L ABG HCO3 56 H ABG O2 Saturation 88 L ABG Base Excess 23 H FiO2 40 Sodium Potassium Chloride Carbon Dioxide Anion Gap BUN Creatinine Estim Creat Clear Calc eGFR BUN/Creatinine Ratio Glucose Calculated Osmolality Lactic Acid Calcium Corrected Calcium Phosphorus Magnesium Total Bilirubin AST ALT Alkaline Phosphatase Troponin I B-Natriuretic Peptide Total Protein Albumin Globulin Albumin/Globulin Ratio Procalcitonin RSV Rapid Negative ABG Interpretation ABG results: 11/08/24 11/08/24 03:09 07:20 ABG pH 7.29 L 7.27 L ABG pCO2 120 H* 122 H* ABG pO2 48 L* 61 L ABG HCO3 58 H 56 H ABG O2 Saturation 81 L 88 L ABG Base Excess 24 H 23 H Quality Measures Quality Measures none Assessment & Plan Assessment Current Active Medications: Generic Name Dose Route Start Last Admin Trade Name Freq PRN Reason Stop Dose Admin Acetaminophen 650 mg 11/08/24 03:54 Acetaminophen 325 Mg Tablet PO 12/08/24 03:53 Q6H PRN Fever >100.4 or Pain Albuterol/Ipratropium 3 ml 11/08/24 07:00 11/08/24 10:18 Albuterol/Ipratropium (Duoneb) Rt Marita 3 Ml Nebu INH 12/08/24 06:59 3 ml Q4HRRT FREDIS Administration Azithromycin 500 mg 11/08/24 09:15 11/08/24 09:40 Azithromycin 250 Mg Tablet PO 11/15/24 09:14 Not Given QDAY FREDIS Enoxaparin Sodium 40 mg 11/08/24 09:00 11/08/24 09:40 Enoxaparin Sod Inj 40 Mg/0.4 Ml Syringe SC 11/22/24 08:59 Not Given QDAY [facility] Methylprednisolone Sodium Succinate 40 mg 11/09/24 09:00 Methylprednisolone Sod Succ 40 Mg Vial IVP 11/16/24 08:59 QDAY [facility] Nicotine 14 mg 11/08/24 09:00 11/08/24 09:40 Nicotine Patch 14 Mg/24 Hr Patch.Td24 TOP 12/08/24 08:59 Not Given QDAY [facility] Ondansetron HCl 4 mg 11/08/24 03:54 Ondansetron Inj 2 Mg/Ml Inj 2 Ml IV 12/08/24 03:53 Q6H PRN NAUSEA OR VOMITING Protocol Sodium Chloride 3 ml 11/08/24 03:54 Sodium Chloride Rt Marita 0.9% 3 Ml Nebu INH 12/08/24 03:53 PRN PRN SOLN Plan Patient is a poor historian and currently on BiPAP and unable to verbalize. Majority of history obtained from chart review. A 64-year-old male with a past medical history of essential hypertension, hyperlipidemia, COPD on 4 L home oxygen, history of A-fib not on anticoagulation as no evidence of A-fib on EKGs over the past few years, history of seizures not on any medication, HFpEF (on diuretics), still actively smoking cigarettes, recurrent admission for COPD exacerbation with recent admission on 10/25/2024 and AMA on 10/29/2024 presented today with a chief complaint of shortness of breath. Patient will be admitted for treatment and management of acute on chronic respiratory failure with hypoxia secondary to COPD exacerbation. 1. Acute on chronic respiratory failure with hypoxia secondary to COPD exacerbation 2. Respiratory acidosis with compensatory metabolic alkalosis Patient on 4 L home oxygen On admission patient SOB unable to even speak. On exam absent breath sounds auscultated throughout all lung hein. Chest x-ray significant for hyperexpanded lung hein, pericardial effusion, increased vascular markings bilaterally. ABG significant for pH 7.29, pCO2 120, PaO2 48, bicarb 58, SaO2 % 81. Plan: ? BiPAP for 2 hours ? Sputum culture and Gram stain ordered ? RSV ordered ? DuoNebs Q4 hourly ? Methylpred 40 Mg IV daily to start on [11/09? ?Furosemide 40 mg x 1 3. Chronic diastolic congestive heart failure with preserved ejection fraction [55-60%] Essential hypertension Transthoracic echocardiogram completed on 09/28/2024 findings include: Normal LV size and function. Grade 1 diastolic dysfunction. Estimated EF 55 to 60%. Mild LA dilation. NYHA class C stage IV Home medication eplerenone and dapagliflozin. However patient is noncompliant Plan: ?Lasix 40 mg IV push x 1 4. Paroxysmal atrial fibrillation EKG for past few years have been negative for atrial fibrillation. On this admission EKG significant for sinus rhythm, Q waves in inferior leads, rate 78, no acute ST changes. 5. History of seizures Patient not on any medication at home 6. Nicotine dependence Patient currently smokes approximately 1 pack/day and has [id number] smoking history Plan: ? Nicotine patch 21 Mg topical daily 7. Obesity class I BMI 33.9 Health maintenance: Disposition: BiPaP, breathing treatments Diet: NPO Lines: pIVs GI Prophylaxis: NOne Thrombo Prophylaxis: Enoxaparin Code status: FULL CODE Plan of care discussed with supervising attending Dr. Saida Jones MD PGY-1 Anjel Rust M.D. PGY-3 Attending Provider Attestation/Addendum I reviewed labs, imaging, EKG, home medications and prior available records. Face to face evaluation was performed by me. I have personally examined the patient and discussed assessment and plan with the IM team. I reviewed the resident note and agree with the plan with exceptions as below. Acute on chronic hypercapnic respiratory failure COPD exacerbation HFpEF EF 55 to 60% Atrial fibrillation with controlled ventricular rhythm Continue BiPAP Continue DuoNebs and systemic steroids Add azithromycin Resume p.o. Lasix Monitor I's and O's Ensure medication compliance
--- NOTE | 2024-11-08 20:46 | PC.RT ---
at 19:31 went to assess pt on 13L oxymask per RN pt desated and place on 13L oxymask, while in room spo2 90% hr 80s, Rr30s asked pt to be placed back on bipap pt okay with going back on bipap, place at 1935, on 10/04 RR19 fio2 40%, on current settings no changes tidal volume 408, RR33, ve 13.3 pip 17, pt tolerating well advised pt to keep mask on for a couple hours pt complaining however stated he will try to keep it on, spo2 89-90% on fio2 40%.
[2024-11-09] VITALS (12 sets, daily range): BP systolic 114–138; BP diastolic 59–74; PULSE 66–94; RESP 18–20; TEMP 36.3–36.8; O2SAT 91–98
[2024-11-09] MEDS: ALBUTEROL/IPRATROPIUM (Duoneb) RT SOL 3 ML NEBU INH ×6 (03:11→22:29)
[2024-11-09 04:11] LABS: Base Excess 24 (-3-3); HCO3 54 mEq/L (20-26); Inspired Oxygen, FIO2 36 %; O2 Saturation 90 % (91-98); PCO2 89 mmHg (32.0-48.0); PO2 66 mmHg (83-108); pH, Arterial 7.39 (7.35-7.45)
[2024-11-09 04:14] LABS: Allen Test Performed/OK; Puncture Site Right Radial
[2024-11-09 06:10] LABS: Basophils % (Auto) 0 % (0-2.5); Eosinophils % (Auto) 0 % (0-10); Hematocrit 42.1 % (41.0-53.0); Immature Granulocytes % (Auto) 1 % (0-0); Immature Granulocytes Auto 0.15 Thou/mm3 (0.00-0.00); Lymphocytes # (Auto) 1.5 Thou/mm3 (1.0-4.8); Lymphocytes % (Auto) 14 % (10-50); Mean Corpuscular HGB Conc 30.9 g/dl (31.0-37.0); Mean Corpuscular Hemoglobin 30.2 pg (25.0-35.0); Mean Corpuscular Volume 98 fL (80-100); Monocytes # (Auto) 0.6 Thou/mm3 (0.0-0.8); Monocytes % (Auto) 6 % (0-12); Neutrophils # (Auto) 8.4 Thou/mm3 (1.8-7.7); Neutrophils % (Auto) 78 % (37-80); Nucleated Red Blood Cell % 0 /100 WBC (0); Platelet Count 122 Thou/mm3 (140-440); RDW Standard Deviation 51.5 fL (35.1-43.9); White Blood Count 10.7 Thou/mm3 (3.8-10.6)
[2024-11-09 06:46] LABS: Alanine Aminotransferase 11 U/L (10-49); Albumin, Serum 4.1 gm/dL (3.4-4.8); Albumin/Globulin Ratio 2.1 (1.2-2.2); Alkaline Phosphatase 59 U/L (46-116); Anion Gap 12 (7-16); Aspartate Amino Transferase < 10 U/L (0-34); BUN/Creatinine Ratio 30 Ratio (12-20); Bilirubin,Total 0.3 mg/dL (0.3-1.2); Blood Urea Nitrogen 21 mg/dL (9-23); Calcium 9.2 mg/dL (8.3-10.6); Calcium (Corrected) 9.2 mg/dL (8.5-10.1); Carbon Dioxide > 40.0 mMol/L (20.0-31.0); Chloride 87 mMol/L (98-107); Creatinine (Component) 0.7 mg/dL (0.6-1.3); Estimated Creatinine Clearance 138.6 mL/min (>60); Glucose 126 mg/dL (74-106); Osmolality,Calculated 282 (275-295); Potassium 3.5 mMol/L (3.4-5.1); Sodium 139 mMol/L (136-145); Total Protein 6.1 gm/dL (5.7-8.2); eGFR > 60 See Note
[2024-11-09] MEDS: AZITHROMYCIN 250 MG TABLET 500 MG PO (09:47)
--- NOTE | 2024-11-09 11:05 | ESPR_ITS ---
Documentation for date of: 11/09/24 Senior resident attestation: Patient evaluated and examined at the bedside, plan of care discussed with rest of the team including my attending physician, except as noted. Acute on chronic hypercapnic respiratory failure secondary to COPD exacerbation, A-fib with RVR, currently rate controlled, we will continue with nasal cannula O2 as patient prefers nasal cannula O2 despite hypoxia over O2 mask, BiPAP at night to be continued. Dr. Rust had a goals of care with the patient today, after going over the clinical condition and risk for respiratory collapse, intubation, the patient made his decision to continue with full CODE STATUS, reported that he will likely move out [facility] [place] in a couple of months, and will like to stay full code for now. Quresh PGY2 Subjective Subjective Interval history: Patient seen today at the bedside fine awake, alert, oriented x 3. No overnight events reported. Vital signs stable at this time. Goals of care discussion was had, explained the high recurrence of hospitalization due to the patient's critical condition and noncompliance with medications. Respect the patient's wishes patient will continue to be full code and continue all aggressive measurements will not consider hospice care. Exam Vital Signs Temp Pulse Resp BP Pulse Ox O2 Del Method O2 Flow Rate 97.3 F 74 19 132/62 H 93 L Oxy Mask 4 11/09/24 08:00 11/09/24 08:00 11/09/24 08:00 11/09/24 08:00 11/09/24 08:00 11/09/24 08:00 11/09/24 08:00 FiO2 40 11/09/24 08:00 Narrative Exam Physical Exam GENERAL: NAD, AAOx3 HEENT: Moist mucosa. Eyes open, symmetrical, & clear CARDIO: Heart RRR, no obvious murmurs PULM: No noted coughing/dyspnea CTA B/L, no R/W/R GI: Abdomen soft, nondistended, no pain on palpation. BSx4 SKIN/MSK/EXT: No wounds/rashes/edema/amputations, no pain on palpation. Pedal pulses present B/L NEURO: AAOx3, no focal neuro deficits, able to move all 4 extremities Objective Labs 11/10/24 05:15 11/10/24 05:15 Labs: Laboratory Results - last 24 hr 11/09/24 11/09/24 04:01 05:53 WBC 10.7 H RBC 4.30 L Hgb 13.0 L Hct 42.1 MCV 98 MCH 30.2 MCHC 30.9 L RDW Std Deviation 51.5 H Plt Count 122 L Neut % (Auto) 78 Lymph % (Auto) 14 [place] % (Auto) 6 Eos % (Auto) 0 Baso % (Auto) 0 Neut # (Auto) 8.4 H Lymph # (Auto) 1.5 [place] # (Auto) 0.6 Eos # (Auto) 0.0 Baso # (Auto) 0.0 Immature Gran # (Auto) 0.15 H Absolute Nucleated RBC 0.00 Immature Gran % 1 H Nucleated RBC % 0 Puncture Site Right Radial ABG pH 7.39 D ABG pCO2 89 H* D ABG pO2 66 L ABG HCO3 54 H ABG O2 Saturation 90 L ABG Base Excess 24 H FiO2 36 Sodium 139 Potassium 3.5 D Chloride 87 L Carbon Dioxide > 40.0 H Anion Gap 12 BUN 21 Creatinine 0.7 D Estim Creat Clear Calc 138.6 eGFR > 60 BUN/Creatinine Ratio 30 H Glucose 126 H Calculated Osmolality 282 Calcium 9.2 Corrected Calcium 9.2 Total Bilirubin 0.3 AST < 10 ALT 11 Alkaline Phosphatase 59 D Total Protein 6.1 Albumin 4.1 Globulin 2.0 L Albumin/Globulin Ratio 2.1 ABG Interpretation ABG results: 11/08/24 11/08/24 11/09/24 03:09 07:20 04:01 ABG pH 7.29 L 7.27 L 7.39 D ABG pCO2 120 H* 122 H* 89 H* D ABG pO2 48 L* 61 L 66 L ABG HCO3 58 H 56 H 54 H ABG O2 Saturation 81 L 88 L 90 L ABG Base Excess 24 H 23 H 24 H Quality Measures Quality Measures none Assessment & Plan Assessment Current Active Medications: Generic Name Dose Route Start Last Admin Trade Name Freq PRN Reason Stop Dose Admin Acetaminophen 650 mg 11/08/24 03:54 Acetaminophen 325 Mg Tablet PO 12/08/24 03:53 Q6H PRN Fever >100.4 or Pain Albuterol/Ipratropium 3 ml 11/08/24 07:00 11/09/24 10:58 Albuterol/Ipratropium (Duoneb) Rt Marita 3 Ml Nebu INH 12/08/24 06:59 3 ml Q4HRRT FREDIS Administration Azithromycin 500 mg 11/08/24 09:15 11/09/24 09:47 Azithromycin 250 Mg Tablet PO 11/15/24 09:14 500 mg QDAY FREDIS Administration Enoxaparin Sodium 40 mg 11/08/24 09:00 11/09/24 09:47 Enoxaparin Sod Inj 40 Mg/0.4 Ml Syringe SC 11/22/24 08:59 Not Given QDAY FREDIS Methylprednisolone Sodium Succinate 40 mg 11/09/24 09:00 11/09/24 09:47 Methylprednisolone Sod Succ 40 Mg Vial IVP 11/16/24 08:59 40 mg QDAY FREDIS Administration Nicotine 14 mg 11/08/24 09:00 11/09/24 09:47 Nicotine Patch 14 Mg/24 Hr Patch.Td24 TOP 12/08/24 08:59 Not Given QDAY FREDIS Ondansetron HCl 4 mg 11/08/24 03:54 Ondansetron Inj 2 Mg/Ml Inj 2 Ml IV 12/08/24 03:53 Q6H PRN NAUSEA OR VOMITING Protocol Sodium Chloride 3 ml 11/08/24 03:54 Sodium Chloride Rt Marita 0.9% 3 Ml Nebu INH 12/08/24 03:53 PRN PRN SOLN Plan 64-year-old male with a past medical history of essential hypertension, hyperlipidemia, COPD on 4 L home oxygen, history of A-fib not on anticoagulation as no evidence of A-fib on EKGs over the past few years, history of seizures not on any medication, HFpEF (on diuretics), still actively smoking cigarettes, recurrent admission for COPD exacerbation with recent admission on 10/25/2024 and AMA on 10/29/2024 presented today with a chief complaint of shortness of breath. Patient will be admitted for treatment and management of acute on chronic respiratory failure with hypoxia secondary to COPD exacerbation. #Acute on chronic respiratory failure with hypoxia secondary to COPD exacerbation #Respiratory acidosis with compensatory metabolic alkalosis Patient on 4 L home oxygen On admission patient SOB unable to even speak. On exam absent breath sounds auscultated throughout all lung hein.\ Chest x-ray significant for hyperexpanded lung hein, pericardial effusion, increased vascular markings bilaterally. ABG significant for pH 7.29, pCO2 120, PaO2 48, bicarb 58, SaO2 % 81. ? BiPAP as needed ? Sputum culture and Gram stain ordered ? RSV ordered ? DuoNebs Q4 hourly ? Prednisone 40 #Chronic diastolic congestive heart failure with preserved ejection fraction [55-60%] Essential hypertension Transthoracic echocardiogram completed on 09/28/2024 findings include: Normal LV size and function. Grade 1 diastolic dysfunction. Estimated EF 55 to 60%. Mild LA dilation. NYHA class C stage IV Home medication eplerenone and dapagliflozin. However patient is noncompliant Was given Lasix 40 mg IV push x 1 #Paroxysmal atrial fibrillation EKG for past few years have been negative for atrial fibrillation. On this admission EKG significant for sinus rhythm, Q waves in inferior leads, rate 78, no acute ST changes. #History of seizures Patient not on any medication at home #Nicotine dependence Patient currently smokes approximately 1 pack/day and has 60?[id number]-jezp smoking history ? Nicotine patch 21 Mg topical daily #Obesity class I BMI 33.9 Plan of care discussed with senior Dr. Rashid PGY-[address] Gonzales Jones MD PGY-1 Health maintenance: Disposition: BiPaP, breathing treatments Diet: NPO Lines: pIVs GI Prophylaxis: None Thrombo Prophylaxis: Enoxaparin Code status: FULL CODE Attending Provider Attestation/Addendum Kristina Doshi DO, attest that I was physically present for the malone portions of the service and evaluated the patient with the resident and I reviewed and discussed the case with the resident and agree with the resident's findings and plans of care as documented above Patient seen and eval this a.m. He appears to be alert and oriented x 3. Patient reports that he is feeling improved. Patient has been using BiPAP at night while sleeping. Will decrease Solu-Medrol dose from 125 to 40 mg IV daily. No wheezing noted. Patient has a Trelegy at home, but does not know how to use it. Will have someone from [employer] go to his house to instruct him how to use it. Goals of care discussion was had with patient and his son over the phone with PGY 3 Dr. Rust. Patient maintains that he would like to be full code and does not want to go to a retirement facility.
--- NOTE | 2024-11-09 12:11 | PC.SS ---
Late note 11-08-24: SS attempted to speak with pt but he had difficult time speaking. SS spoke to his sonDaniel by phone to arrange goals of care discussion for tomorrow at 2:30pm, per physician's request. Son resides out of state and their is 3 hour difference. Pt is from home. Son is agreeable for pt to go to SNF but is not confident pt will be accepted.
--- NOTE | 2024-11-09 12:36 | PC.SS ---
SS met with patient regarding his d/c plan (and spoke to son by phone 11-08-24). Pt is alert/oriented. Pt was admitted for Acute on Chronic Hypercapneic Respiratory Failure. Pt confirmed demographic and contact information is correct on facesheet. Pt resides with roommates. Pt has a walker and wheelchair. Pt is ok with all ADLs. Pt transfers self into wheelchair. Pt named his son, Daniel Lowe medical decision maker if he is unable. Patient?s choice is to return home upon d/c. Pt states he has bipap at home from [facility] but does not know how to use it. Son is agreeable for pt to go to SNF but is not aware if pt will be receptive to SNF. Pt at this time is refusing SNF D/C plan: Return home Next of Kin: Daniel Lowe, phone# [phone] PCP: Dr. Nickolas Jones from [facility] Address: Correct on facesheet
--- NOTE | 2024-11-09 18:06 | PC.NURSE ---
Patient removed IV in right hand, intact cannula found on floor of patient's room. Patient is refusing the insertion of new IV.
[2024-11-10] VITALS (9 sets, daily range): BP systolic 118–130; BP diastolic 57–77; PULSE 65–95; RESP 16–19; TEMP 36.1–36.6; O2SAT 90–98
[2024-11-10] MEDS: ALBUTEROL/IPRATROPIUM (Duoneb) RT SOL 3 ML NEBU INH ×4 (02:40→14:59)
[2024-11-10 06:12] LABS: Basophils % (Auto) 0 % (0-2.5); Eosinophils % (Auto) 0 % (0-10); Hemoglobin 12.4 g/dL (13.5-16.0); Immature Granulocytes % (Auto) 1 % (0-0); Immature Granulocytes Auto 0.12 Thou/mm3 (0.00-0.00); Lymphocytes # (Auto) 1.5 Thou/mm3 (1.0-4.8); Lymphocytes % (Auto) 15 % (10-50); Mean Corpuscular Hemoglobin 30.5 pg (25.0-35.0); Mean Corpuscular Volume 98 fL (80-100); Monocytes # (Auto) 0.5 Thou/mm3 (0.0-0.8); Monocytes % (Auto) 5 % (0-12); Neutrophils # (Auto) 7.8 Thou/mm3 (1.8-7.7); Neutrophils % (Auto) 78 % (37-80); Nucleated Red Blood Cell % 0 /100 WBC (0); Platelet Count 111 Thou/mm3 (140-440); RDW Standard Deviation 52.2 fL (35.1-43.9); Red Blood Count 4.07 Miln/mm3 (4.50-5.90); White Blood Count 9.9 Thou/mm3 (3.8-10.6)
[2024-11-10 06:46] LABS: Alanine Aminotransferase 11 U/L (10-49); Alkaline Phosphatase 53 U/L (46-116); Anion Gap 8 (7-16); Aspartate Amino Transferase < 10 U/L (0-34); BUN/Creatinine Ratio 30 Ratio (12-20); Bilirubin,Total 0.3 mg/dL (0.3-1.2); Blood Urea Nitrogen 21 mg/dL (9-23); Carbon Dioxide > 40.0 mMol/L (20.0-31.0); Chloride 89 mMol/L (98-107); Creatinine (Component) 0.7 mg/dL (0.6-1.3); Estimated Creatinine Clearance 138.6 mL/min (>60); Glucose 177 mg/dL (74-106); Magnesium 1.9 mg/dL (1.6-2.6); Osmolality,Calculated 280 (275-295); Potassium 3.8 mMol/L (3.4-5.1); Sodium 137 mMol/L (136-145); eGFR > 60 See Note
[2024-11-10] MEDS: predniSONE 20 MG TABLET 40 MG PO (08:46)
[2024-11-10] MEDS: AZITHROMYCIN 250 MG TABLET 500 MG PO (08:46)
--- NOTE | 2024-11-10 12:44 | PC.SS ---
SS spoke to Niecy at [facility] in regards to Bi-Pap education from RT. Per Niecy BRICE to update her when pt is DC and she will set the RT with appointment to see pt for re-education.
--- NOTE | 2024-11-10 13:57 | ESDS_ITS ---
<Statement entered by Kristina Rolon DO - 11/11/24 12:50> I, Kristina Rolon DO, attest that I was physically present for the malone portions of the service and evaluated the patient with the resident and I reviewed and discussed the case with the resident and agree with the resident's findings and plans of care as documented above Planned Discharge Date 11/10/24 DS: Providers Provider Date of admission: 11/08/24 03:54 Primary care physician: Nickolas Jones MD Admitting Provider: David Scott MD Attending Provider on Admission: Kristina Rolon DO Attending Provider on DC: Kristina Rolon DO Discharging Provider: Mk Jones MD Anticipated date of discharge: 11/10/24 DS: Diagnosis Problem List Completed Was Problem List Reviewed/Reconciled?: Yes Hospital Course Hospital Course Hospital course: 64-year-old male with a past medical history of essential hypertension, hyperlipidemia, COPD on 4 L home oxygen, history of A-fib not on anticoagulation as no evidence of A-fib on EKGs over the past few years, history of seizures not on any medication, HFpEF (on diuretics), still actively smoking cigarettes, recurrent admission for COPD exacerbation with recent admission on 10/25/2024 and AMA on 10/29/2024 presented today with a chief complaint of shortness of breath. Patient will be admitted for treatment and management of acute on chronic respiratory failure with hypoxia secondary to COPD exacerbation. During hospital stay patient was managed with BiPAP as needed and nebulization therapies. Patient also had steroid medications. Per patient's heart failure with preserved ejection fraction was managed with home dose of Lasix. Patient has history of atrial fibrillation however takes no anticoagulation. Patient is very noncompliant with his medications and was also refusing therapy here in the hospital. At this time patient is medically stable for discharge. Recommended to follow up with PCP within 1 week of discharge. Recommeneded to follow up with the oxygen company go to his house to instruct him how to use Trelegy machine. Patient was instructed on the importance of compliance with all his medications. Patient will be discharged with Medrol pack, for steroid taper. If symptoms recur or worsen patient is instructed to return to the ED. Problem list: #Acute on chronic respiratory failure with hypoxia secondary to COPD exacerbation #Respiratory acidosis with compensatory metabolic alkalosis #Chronic diastolic congestive heart failure with preserved ejection fraction [55-60%] #Paroxysmal atrial fibrillation #History of seizures #Nicotine dependence #Obesity class I Case discussed with my attending Dr. Gonzales Jones MD PGY-1 Status at Discharge Functional status at discharge: independent ambulation Overall status at discharge: patient is back to baseline Time Spent with Patient Time attestation: Total time spent providing and/or coordinating discharge services: Time spent: Greater than 30 minutes Exam Vital Signs Temp Pulse Resp BP Pulse Ox O2 Del Method O2 Flow Rate 97 F 81 17 128/64 95 Nasal Cannula 4 11/10/24 12:00 11/10/24 12:00 11/10/24 12:00 11/10/24 12:00 11/10/24 12:00 11/10/24 12:00 11/10/24 12:00 FiO2 40 11/09/24 16:00 Narrative Exam Physical Exam GENERAL: NAD, AAOx3 HEENT: Moist mucosa. Eyes open, symmetrical, & clear CARDIO: Heart RRR, no obvious murmurs PULM: No noted coughing/dyspnea CTA B/L, no R/W/R GI: Abdomen soft, nondistended, no pain on palpation. BSx4 SKIN/MSK/EXT: No wounds/rashes/edema/amputations, no pain on palpation. Pedal pulses present B/L NEURO: AAOx3, no focal neuro deficits, able to move all 4 extremities Discharge Plan Plan Patient Disposition: HOME (Self Care) Care Plan Goals: Recommended to follow up with PCP within 1 week of discharge. Recommeneded to follow up with the oxygen company go to his house to instruct him how to use Trelegy machine Patient was instructed on the importance of compliance with all his medications Patient will be discharged with Medrol pack, for steroid taper If symptoms recur or worsen patient is instructed to return to the ED. Prescriptions/Referrals Prescriptions/Med Rec: New Trelegy Ellipta 200-62.5-25 mcg blister with device 1 inh inhalation Q24H Qty: 60 0RF methylprednisolone [Medrol (Agus)] 4 mg tablets,dose pack 4 mg PO QAM Qty: 21 0RF azithromycin 500 mg tablet See Rx Instructions .ROUTE .COMPLEX Qty: 3 0RF Rx Instructions: For 500 mg dose pack: take 500 mg once daily for 3 days Continued tiotropium-olodaterol 2.5-2.5 mcg/actuation mist 2 puff inhalation QDAY Qty: 4 0RF albuterol sulfate 90 mcg/actuation aerosol powdr breath activated 2 inh inhalation Q6H PRN (Reason: shortness of breath or wheezing) Qty: 1 3RF furosemide 40 mg tablet 40 mg PO BID Patient Comments: TAKE ONE TABLET BY MOUTH TWICE DAILY A DIURETIC Discontinued prednisone 20 mg tablet 40 mg PO QDAY Qty: 6 0RF Referrals: Nickolas Jones MD [Primary Care Provider] - Patient/Caregiver Discharge Instructions Print Language: Prydeinig Stand Alone Forms: [facility] Award Info., Patient Portal Info Letter Discharge Order Discharge Orders: Discharge (Routine); Ordered 11/10/24 Ordered By: Mk Jones Quality Discharge Quality Measures VTE prophylaxis
--- NOTE | 2024-11-10 14:52 | PC.SS ---
Follow up note: Patient is being discharged home today and needs transport. SS contacted [facility] to deliver portable 02 here and then set up patient for uber.
--- NOTE | 2024-11-11 12:12 | PC.SS ---
SS has informed Niecy from [facility] pt d/c on 11-10-24
== END 2024-11-10 16:45 | disposition home or self-care (01) | DRG 189 ==
LOC: SERX 04:11 → SERHOLD 04:59 → S3NX 07:41
PROVIDERS: Student in an Organized Health Care Education/Training Program; Admitting Provider Internal Medicine; Emergency Provider Emergency Medicine; PCP Family Medicine; Visit Provider Internal Medicine
DX: J96.21 Acute and chronic respiratory failure with hypoxia (principal); J44.1 Chronic obstructive pulmonary disease with (acute) exacerbation; I50.32 Chronic diastolic (congestive) heart failure; E87.4 Mixed disorder of acid-base balance; J96.22 Acute and chronic respiratory failure with hypercapnia; I48.0 Paroxysmal atrial fibrillation; I11.0 Hypertensive heart disease with heart failure; E78.5 Hyperlipidemia, unspecified; E66.811 Obesity, class 1; R56.9 Unspecified convulsions; Z68.33 Body mass index [BMI] 33.0-33.9, adult; F17.210 Nicotine dependence, cigarettes, uncomplicated; Z91.148 Patient's other noncompliance with medication regimen for other reason; Z99.81 Dependence on supplemental oxygen; Z79.899 Other long term (current) drug therapy; Z79.51 Long term (current) use of inhaled steroids
CPT/HCPCS: 36415; 36600; 71045; 80053; 80307; 81001; 82803; 83605; 83735; 83880; 84100; 84145; 84484; 85025; 85610; 85730; 87040; 87400; 87634; 87811; 93005; 93225; 94640; 94644; 94660; 99291; A9270; J1940; J2919; J7512

== ENCOUNTER 2024-11-21 04:54 | Inpatient (IN) | payer MEDICARE, MEDICAID, SELFPAY ==
[2024-11-21] VITALS (32 sets, daily range): BP systolic 105–175; BP diastolic 53–92; PULSE 67–95; RESP 8–35; TEMP 36.6–37.2; O2SAT 79–976; BMI 34.4
--- NOTE | 2024-11-21 05:00 | XR_ITS ---
Examination: AP chest single view. TECHNIQUE: AP portable upright chest single view. Examination done: November 21, 2024 0531 hours Comparison November 08, 2024 INDICATIONS: Chest pain today. FINDINGS: Mild prominence left ventricle Significant vascular congestion. Accentuation of bronchovascular markings especially at the lung bases Minor blunting left costophrenic angle IMPRESSION: Significant vascular congestion, consider early heart failure Basilar bronchitis pattern
--- NOTE | 2024-11-21 05:00 | PC.NURSE ---
PT BROUGHT TO ER BY AMBULANCE FROM HOME, EMS REPORTED PT FELL YESTERDAY, BUT NOW PT C/O BEING WEAK, NO C/O PAIN.
--- NOTE | 2024-11-21 05:00 | EKG_ITS ---
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
[2024-11-21] MEDS: ALBUTEROL/IPRATROPIUM (Duoneb) RT SOL 3 ML NEBU INH ×3 (05:14→18:11)
[2024-11-21 05:38] LABS: Lactate (Lactic Acid) 1.6 mMol/L (0.4-2.0)
[2024-11-21 05:41] LABS: Basophils % (Auto) 0 % (0-2.5); Eosinophils # (Auto) 0.1 Thou/mm3 (0.0-0.5); Eosinophils % (Auto) 1 % (0-10); Hematocrit 45.2 % (41.0-53.0); Hemoglobin 13.5 g/dL (13.5-16.0); Immature Granulocytes % (Auto) 1 % (0-0); Immature Granulocytes Auto 0.09 Thou/mm3 (0.00-0.00); Lymphocytes # (Auto) 0.9 Thou/mm3 (1.0-4.8); Lymphocytes % (Auto) 12 % (10-50); Mean Corpuscular HGB Conc 29.9 g/dl (31.0-37.0); Mean Corpuscular Hemoglobin 30.4 pg (25.0-35.0); Mean Corpuscular Volume 102 fL (80-100); Monocytes # (Auto) 0.5 Thou/mm3 (0.0-0.8); Monocytes % (Auto) 8 % (0-12); Neutrophils # (Auto) 5.4 Thou/mm3 (1.8-7.7); Neutrophils % (Auto) 78 % (37-80); Nucleated Red Blood Cell % 0 /100 WBC (0); Platelet Count 111 Thou/mm3 (140-440); RDW Standard Deviation 52.9 fL (35.1-43.9); Red Blood Count 4.44 Miln/mm3 (4.50-5.90); White Blood Count 6.9 Thou/mm3 (3.8-10.6)
--- NOTE | 2024-11-21 05:44 | PD.EDRME ---
Rapid Medical Screening Exam RME Arrival date/time: 11/21/24 04:54 Chief Complaint: General Adult/Misc Complain Time Seen by Provider: 11/21/24 05:44 Vital signs: Vital Signs Temperature 98.9 F 11/21/24 05:04 Pulse Rate 93 11/21/24 05:04 Respiratory Rate 20 11/21/24 05:04 Blood Pressure 153/81 H 11/21/24 05:04 Pulse Oximetry (%) 89 L 11/21/24 05:04 Oxygen Delivery Method Nasal Cannula 11/21/24 05:04 Oxygen Flow Rate 4 11/21/24 05:04 RME Narrative: 64 yo male patient with h/o COPD c/o generalized weakness
[2024-11-21 06:00] LABS: Ammonia 33 uMol/L (11-32)
--- NOTE | 2024-11-21 06:06 | PC.RT ---
RT Marlin attempted ABG, Pt became verbally abusive and combative. Dr Mcmullen made aware RT Kristopher called to attempt
[2024-11-21 06:13] LABS: Alanine Aminotransferase 16 U/L (10-49); Albumin, Serum 4.4 gm/dL (3.4-4.8); Albumin/Globulin Ratio 1.7 (1.2-2.2); Alcohol, Blood Medical < 3.0 mg/dL (0-10.0); Alkaline Phosphatase 71 U/L (46-116); Anion Gap 14 (7-16); Aspartate Amino Transferase 17 U/L (0-34); BUN/Creatinine Ratio 25 Ratio (12-20); Bilirubin,Total 0.3 mg/dL (0.3-1.2); Blood Urea Nitrogen 20 mg/dL (9-23); Carbon Dioxide > 40.0 mMol/L (20.0-31.0); Chloride 86 mMol/L (98-107); Creatinine (Component) 0.8 mg/dL (0.6-1.3); Estimated Creatinine Clearance 118.7 mL/min (>60); Globulin 2.6 gm/dL (2.3-3.5); Glucose 146 mg/dL (74-106); Lipase 28 U/L (12-53); Magnesium 1.9 mg/dL (1.6-2.6); Osmolality,Calculated 285 (275-295); Potassium 3.8 mMol/L (3.4-5.1); Procalcitonin 0.21 ng/ml (0.0-0.49); Sodium 140 mMol/L (136-145); Troponin I < 0.020 ng/mL (0.0-0.045); eGFR > 60 See Note
--- NOTE | 2024-11-21 06:16 | PC.RT ---
Pt refused ABG, he was threatening to strike RT if I continued to attempt at the ABG. RN made aware.
--- NOTE | 2024-11-21 06:17 | XR_ITS ---
Examination: CTA chest with intravenous contrast 2-D reconstructions 3-D reconstructions, vascular Date and time of exam: November 21, 2024 0740 hours Comparison September 15, 2024 INDICATIONS: Onset of shortness of breath chest pain today CTDI: vol (mGy) 52.6 DLP: (mGycm) 1157 Technique: Multiple axial sections of the thorax have been obtained. 3 mm slice thickness, from below the hemidiaphragms to above the apices of the lungs. Mediastinal and lung density settings have been obtained. 2-D sagittal and coronal reconstructions. 3-D angiographic renderings, 3-D volume renderings, 3D post processing, vascular maximum intensity projections obtained. Contrast administered is 100 cc Isovue-370. Low dose protocols were performed. One or more of the following dose reduction techniques were used; automated exposure control, adjustment of the mA and/or KV according to patient size, use of iterative reconstruction technique. Findings: No thoracic aortic aneurysmal dilatation No pulmonary artery emboli Significant calcification left anterior descending coronary artery Mild enlargement cardiac contour Mild vascular congestion Atelectasis versus early pneumonia left base No visualized liver or splenic lesion No pancreatic mass Kidneys partially visualized no hydronephrosis Moderate osteopenia IMPRESSION: Negative for pulmonary artery emboli Significant calcification left anterior descending coronary artery. Atelectasis versus early pneumonia left base, clinical correlation advised
--- NOTE | 2024-11-21 06:18 | XR_ITS ---
Examination: CT brain head without contrast. 2-D sagittal coronal reconstructions Date and time of exam:November 21, 2024 0731 hours findings comparison October 03, 2024 INDICATIONS: Altered mental status today, altered mental status October 03, 2024 with hypoxic respiratory failure CTDI: vol (mGy):52.6 DLP: (mGycm):1157 Technique: Multiple CT axial sections of the brain have been obtained, 5 mm slice thickness. Contrast has not been administered. 2-D sagittal, coronal reconstructions have been obtained Low dose protocols were performed. One or more of the following dose reduction techniques were used; automated exposure control, adjustment of the mA and/or KV according to patient size, use of iterative reconstruction technique. Findings: No significant ventricular enlargement. Intra-axial or extra-axial hemorrhage density is not seen. No mass effect or midline shift Basal cisterns are not remarkable. Fourth ventricle is midline. Cranial vault intact. Left frontal and bilateral ethmoid chronic sinusitis Impression: Negative for acute hemorrhage, mass effect or midline shift If symptoms persist, consider brain MRI follow-up
--- NOTE | 2024-11-21 06:42 | PD.EDWEAK ---
ED Weakness RME/HPI General Chief complaint: General Adult/Misc Complain Stated complaint: WEAKNESS Time Seen by Provider: 11/21/24 05:44 Arrival date/time: 11/21/24 04:54 RME / HPI RME / HPI Narrative: 64 yo male patient with h/o COPD c/o generalized weakness This section includes all my notes and documentations, including HPI, PE, and ED course.? Rohit Shabazz MD HPI: I took over the care from Dr. HUNTER at 6 AM on 11/21/2024, see her notes for details. ROS: All negative except as documented in HPI. Physical Exam: General:? Alert and oriented X 2. Obviously confused and combative. Hypoxia noted. Eyes:? Conjunctivae and lids clear.? PERRL. EOMI. ENT:? No nasal congestion.? Neck:? Supple.? No JVD. Heart:? RRR.? Lungs:? Moderate respiratory distress.? Decreased air movement with bilateral wheezing and rales. Abdomen:? Soft and nontender.?? Legs:? No clubbing, cyanosis, edema.? Skin:? Warm and dry.?? Neuro:? Alert and oriented X 2. I reviewed all diagnostic test results. My interpretation of the EKG is?sinus rhythm with no acute ST?T changes. My interpretation of the chest x-ray is increased vascular congestion. My review of the head CT report is?no acute findings. My review of the chest CT report is no PE. Blood tests and urine tests?remarkable for D-dimer 913 and VBG showing hypercapnia and hypoxia and TSH 0.35. At this point, diagnoses include?acute respiratory failure with hypoxia and hypercapnia. Treatment here included?Solu-Medrol and DuoNeb and Ativan and BiPAP. Some improvement noted. I discussed the case with our hospitalist.? About the presentation and exam and diagnostics and treatments here.? And need of further care in the hospital.? Will accept the patient. Rohit Shabazz MD Related Data Home Medications ?Medication ?Instructions ?Recorded ?Confirmed furosemide 40 mg tablet 40 mg PO BID 11/08/24 11/21/24 Previous Rx's ?Medication ?Instructions ?Recorded albuterol sulfate 90 mcg/actuation 2 inh inhalation Q6H PRN shortness 09/20/24 breath activated powder inhaler of breath or wheezing #1 ea azithromycin 500 mg tablet See Rx Instructions PO .COMPLEX #3 11/10/24 tabs fluticasone fur. 200 mcg-umeclid 1 inh inhalation Q24H #60 ea 11/10/24 62.5 mcg-vilant 25 mcg inhalat.powder (Trelegy Ellipta) methylprednisolone 4 mg tablets in 4 mg PO QAM #21 tabs 11/10/24 a dose pack (Medrol (Agus)) Allergies Allergy/AdvReac Type Severity Reaction Status Date / Time No Known Allergies Allergy Verified 09/15/24 12:27 Review of Systems Review of Systems Systems Reviewed: All systems reviewed, normal except as documented Past Medical History Past Medical History NEUROLOGIC: Positive Seizures CARDIAC: Positive Cardiac Disorders, Atrial Fibrillation, Hypercholesterolemia, Congestive Heart Failure and Hypertension RESPIRATORY: Positive Chronic Obstructive Pulmonary Disease (COPD), Asthma and Pneumonia GASTROINTESTINAL: Positive Obesity PSYCHO/SOCIAL: Positive Recreational Drug Use and Anxiety Surgical History SURGICAL: Positive Open Heart Surgery and Coronary Artery Bypass Graft Social History SMOKING STATUS: Current every day smoker SECOND HAND EXPOSURE: No ED Exam Narrative Physical exam: As noted in HPI Course Course Course Narrative: chest xray ordered to help determine etiology of shortness of breath. Quality Measures none Orders Category Date Time Status Bedside COVID-19 Antigen Test NOW Care 11/21/24 06:15 Active Bedside Influenza A&B Antigen Test NOW Care 11/21/24 06:15 Completed COVID-19 Screening Questionnaire NOW Care 11/21/24 09:[address] Screening NOW Care 11/21/24 06:17 Active Aircraft Quality Control Inspector NOW Care 11/21/24 05:00 Active Decision to Admit X1 Care 11/21/24 09:04 Active EKG (ED ONLY) *Do not use* NOW Care 11/21/24 05:00 Completed Saline [Insert IV] NOW Care 11/21/24 06:15 Active Straight [In and Out Catheter] X1 Care 11/21/24 06:[address] angio chest Stat Exams 11/21/24 06:[address] head/brain wo con Stat Exams 11/21/24 06:18 Completed EKG (ED Only) Stat Exams 11/21/24 05:00 Draft XR chest 1V portable Stat Exams 11/21/24 05:00 Completed ABG [Arterial Blood Gas] Stat Lab 11/21/24 05:01 Ordered Alcohol, Blood Medical Stat Lab 11/21/24 05:30 Completed Ammonia Stat Lab 11/21/24 05:30 Completed B-Type Natriuretic Peptide Stat Lab 11/21/24 05:30 Completed Blood Culture (Lab) Stat Lab 11/21/24 05:25 Received CBC Stat Lab 11/21/24 05:30 Completed Comprehensive Metabolic Panel Stat Lab 11/21/24 05:30 Completed D-Dimer Stat Lab 11/21/24 06:35 Completed Drug Screen,Urine Stat Lab 11/21/24 05:01 Ordered Lactate (Lactic Acid) Stat Lab 11/21/24 05:30 Completed Lipase Stat Lab 11/21/24 05:30 Completed Magnesium Stat Lab 11/21/24 05:30 Completed Procalcitonin Stat Lab 11/21/24 05:30 Completed Thyroid Stimulating Hormone Stat Lab 11/21/24 05:30 Completed Troponin I Stat Lab 11/21/24 05:30 Completed UA, C/S IF [Urinalysis, C/S if Indicated] Stat Lab 11/21/24 05:04 Ordered VBG [Venous Blood Gas] Stat Lab 11/21/24 06:35 Completed Albuterol/Ipratr Rt Marita [Duoneb Rt Marita] Med 11/21/24 05:07 Discontinued 3 ml INH X1 ONE LORazepam [Ativan Inj] Med 11/21/24 07:54 Discontinued 1 mg IVP X1 ONE MethylPREDNISolone.* [SoluMEDROL Inj] Med 11/21/24 06:16 Discontinued 125 mg IVP X1 ONE BiPAP / CPAP NOW RT 11/21/24 06:18 Active Vital Signs Vital signs: Vital Signs Temperature 98.9 F 11/21/24 05:04 Pulse Rate 93 11/21/24 05:04 Respiratory Rate 20 11/21/24 05:04 Blood Pressure 153/81 H 11/21/24 05:04 Pulse Oximetry (%) 89 L 11/21/24 05:04 Oxygen Delivery Method Nasal Cannula 11/21/24 05:04 Oxygen Flow Rate 4 11/21/24 05:04 Pulse ox is 91% on 4L nasal cannula which is low. Weakness MDM Narrative MDM Narrative:: Cherise Doshi am scribing for and in the presence of Dr. Shabazz. Patient data External records reviewed:: [facility] previous records (I reviewed admission from 11/08/2024 through 11/10/2024 for acute on chronic respiratory failure with hypoxia secondary to COPD exacerbation) and EMS form Clinical information provided by:: patient and EMS Social determinants that could affect healthcare access:: other (specify) (Active tobacco smoker) Patient has the following chronic illnesses:: AFib, HFpEF 55-60% 09/2024, hypertension, COPD on 4L home oxygen, hyperlipidemia, recurrent admissions for COPD exacerbation (most recent admission 11/08/2024 through 11/10/2024 for acute on chronic respiratory failure with hypoxia secondary to COPD exacerbation How is presenting disease/condition affected by chronic disease/condition?: exacerbated by Evaluation data The following diagnostics were reviewed and interpreted by me:: lab results, radiology exam(s) and EKG tracing(s) (My interpretation of the EKG is: Sinus rhythm with nonspecific ST-T changes. Rohit Shabazz MD) Lab and/or radiology exams considered but not ordered:: None Interpretation Summary: Acute respiratory failure with hypoxia and hypercapnia. Medications / Prescriptions Medications or Prescriptions considered but not ordered:: None Medication administrations:: Medication Administration History Discontinued Medications Albuterol/Ipratropium (Albuterol/Ipratropium (Duoneb) Rt Marita 3 Ml Nebu) 3 ml INH X1 ONE Stop: 11/21/24 05:08 Last Admin: 11/21/24 05:14 Dose: 3 ml Documented By: KL Lorazepam (Lorazepam 2 Mg/Ml Vial) 1 mg IVP X1 ONE Stop: 11/21/24 07:55 Last Admin: 11/21/24 08:02 Dose: 1 mg Documented By: TM Methylprednisolone Sodium Succinate (Methylprednisolone Sod Succ 62.5 Mg/Ml 2ml Vial) 125 mg IVP X1 ONE Stop: 11/21/24 06:17 Last Admin: 11/21/24 06:48 Dose: 125 mg Documented By: CVL Patient given Albuterol duoneb, Solu-Medrol, Ativan, and BiPAP. Consultations Consultation(s) initiated? (list below): No Diagnosis Weakness Differential Diagnosis: acute myocardial infarction, anemia, hypoglycemia, hypothyroidism, sepsis, dehydration and other (COPD exacerbation, pneumonia, viral illness, CHF) Most likely diagnosis given after review of the tests above:: Acute respiratory failure with hypoxia and hypercapnia Admission Indicated Admission indicated?: indicated Explain why admission is indicated or not indicated:: Acute respiratory failure Admission Request Was there a request for admission?: Yes Admission Attestation Admission request attestation: Discussed case with [] from Hospitalist service regarding admission. Discussed patients ED course, exam findings, labs, and radiology results. The Hospitalist [agrees,declines] to accept the patient for admission. Disposition Plan Disposition Plan: Admit Discharge Plan Plan Patient Disposition: Admit Acute Care w/in Hospital Prescriptions/Referrals Prescriptions/Med Rec: No Action albuterol sulfate 90 mcg/actuation aerosol powdr breath activated 2 inh inhalation Q6H PRN (Reason: shortness of breath or wheezing) Qty: 1 3RF furosemide 40 mg tablet 40 mg PO BID Patient Comments: TAKE ONE TABLET BY MOUTH TWICE DAILY A DIURETIC Trelegy Ellipta 200-62.5-25 mcg blister with device 1 inh inhalation Q24H Qty: 60 0RF methylprednisolone [Medrol (Agus)] 4 mg tablets,dose pack 4 mg PO QAM Qty: 21 0RF azithromycin 500 mg tablet See Rx Instructions .ROUTE .COMPLEX Qty: 3 0RF Rx Instructions: For 500 mg dose pack: take 500 mg once daily for 3 days Referrals: No Primary/Family,Physician [Primary Care Provider] - In 1 week Problem List Clinical Impression: Acute respiratory failure with hypoxia and hypercapnia Patient/Caregiver Discharge Instructions Print Language: Guinean Stand Alone Forms: [facility] Award Info., Patient Portal Info Letter
[2024-11-21 06:47] LABS: B-Type Natriuretic Peptide 50 pg/mL (0-100)
[2024-11-21 06:48] LABS: Base Excess, Venous 24 (-3-3); O2 Saturation, Venous 84 % (96-97); PCO2, Venous 113 mmHg (36-56); PO2, Venous 48 mmHg (15-58); pH, Venous 7.31 (7.33-7.66)
[2024-11-21] MEDS: MethylPREDNISolone SOD SUCC 62.5 MG/ML 2ML VIAL 125 MG IVP (06:48)
[2024-11-21 07:00] LABS: Thyroid Stimulating Hormone 0.35 uIU/mL (0.55-4.78)
--- NOTE | 2024-11-21 07:34 | PC.NURSE ---
Upon assumption of care pt resting w/eyes closed on 6L via oxy mask. Pt denies and pain or discomfort, spoke w/provider who informed this RN pt is refusing ABG and bi-pap. pt taken to CT at this time.
[2024-11-21 07:36] LABS: D-Dimer 913 ng/mL (<600)
[2024-11-21] MEDS: LORazepam 2 MG/ML VIAL 1 MG IVP (08:02)
--- NOTE | 2024-11-21 08:47 | PC.RT ---
Bipap placed at 820. Tried to adjust mask multiple times, patient being uncooperative. RN aware and at bedside.
[2024-11-21] MEDS: FLUMAZENIL INJ 0.1 MG/ML VIAL 10 ML 0.2 MG IVP (09:37)
[2024-11-21 09:45] LABS: Allen Test Performed/OK; Base Excess 26 (-3-3); HCO3 61 mEq/L (20-26); Inspired Oxygen, FIO2 70 %; O2 Saturation 95 % (91-98); PCO2 136 mmHg (32.0-48.0); PO2 104 mmHg (83-108); Puncture Site Right Radial; pH, Arterial 7.26 (7.35-7.45)
[2024-11-21 12:04] LABS: Base Excess 26 (-3-3); HCO3 58 mEq/L (20-26); Inspired Oxygen, FIO2 30 %; O2 Saturation 90 % (91-98); PCO2 106 mmHg (32.0-48.0); pH, Arterial 7.35 (7.35-7.45)
[2024-11-21 12:08] LABS: Allen Test Not Performed; PO2 59 mmHg (83-108); Puncture Site Left Radial
[2024-11-21] MEDS: Magnesium Sulfate 2 GM Ivpb 2 GM/50 ML BAG IV (13:39)
[2024-11-21] MEDS: FUROSEMIDE INJ 10 MG/ML 4ML VIAL 40 MG IVP (13:39)
[2024-11-21 13:50] LABS: Free T4 (Free Thyroxine) 1.15 ng/dL (0.89-1.76)
[2024-11-21] MEDS: AZITHROMYCIN INJ 500 MG in SODIUM CHLORIDE 0.9% 250 ML 250 ML 250 MG IV (13:54)
--- NOTE | 2024-11-21 14:40 | PD.RESHP ---
Documentation for date of: 11/21/24 [facility] History of Present Illness History of present illness: CC: weak and confused Patient is a 64-year-old male with a past medical history of hypertension, hyperlipidemia, COPD on 4 L of oxygen at home, active smoker history of paroxysmal A-fib (not Eliquis stopped on previous ), CHF HFpEF 55 to 60%, diastolic dysfunction, and history of seizure. Patient presented to the emergency room with a chief complaint of generalized weakness and altered mental status. Patient was unable to provide a clear history as he was started on the BiPAP in the emergency room secondary to acute hypercapnic respiratory failure and acute hypercapnic encephalopathy. Patient has had recent admissions for acute COPD exacerbation within the last 2 months patient has had 4 admissions and today's admission would be 5th admission. Admission on 11/21/2024 for acute hypercapnic encephalopathy and Acute hypercapnic Respiratory Failure. ER Course: Patient's vitals on admission 153/81, respiratory rate of 20, heart rate 81, saturating at 89% on 4 L nasal cannula and appeared to have increased work of breathing. Patient was alert but not oriented x 3. CBC was obtained showing WBC within normal limits, hemoglobin and hematocrit within normal limits, MCV of 102, platelets 111 (L). Potassium 3.8, chloride 86, with a bicarb greater than 40. Ammonia level of 33 slightly elevated. Troponin levels within normal limits. EKG no ST elevation noted QT corrected 438 normal QRSD and enlarged left atrial heart. CTA chest showed negative thrombi, Actal ectasis versus possible early pneumonia at the left base. Patient CT head was negative. Medication given: Duonebs X1, Methypredinisolon 125 mg IVP X1, Lorazepam 1 mg IVP X 1, Flumazel 0.2 mg IVP X 1; STARTED on BIpap. [place] Coma Scale (GCS) 11 after Bipap was started. PMH: -Multiple hospitalizations for COPD exacerbation within the last 2 months, including ICU -HTN -HLD -CHF HFPEF 55 to 60% (09/2024) Home Medication: Trelegy Tiotropium Albuterol Furosemide 40 mg oral twice daily Eplerenone 25 mg once a day ? Farxiga 5 mg one table every morning ? Atorvastatin 10 mg ? Methylprednisolone taper Social History: Active Smoker History of Alcohol Use Allergies: None Code Status: Full Code Review of Systems Review of Systems Narrative Review of Systems: General appearance: NO weight change, NO fatigue, NO weakness, NO fever, NO chills, NO night sweats, No cough Skin: NO rash, NO itching, NO sores, NO moles HEENT: NO Trauma, NO nausea, NO vomiting, NO visual changes, NO blurry vision, NO double vision, NO tinnitus, NO vertigo, NO ear discharge, NO rhinorrhea, NO stuffiness, NO sneezing, NO allergy, NO epistaxis. NO Hoarseness, NO sore throat, NO swollen neck. Cardiac: NO Palpitations, NO dyspnea on exertion, NO orthopnea, NO paroxysmal nocturnal dyspnea, NO edema Respiratory: YES Shortness of Breath, YES Wheezing, YES Cough, NO Sputum, NO hemoptysis GI:NO appetite, NO nausea, NO vomiting, NO dysphagia, NO changes in bowel frequency, NO stool color, NO diarrhea, NO constipation, NO hemetemesis, NO hemorrhoids, NO melena, NO hematechezia, NO abdominal pain, NO jaundice Renal: NO frequency, NO hesitancy, NO urgency, NO hematuria, NO nocturia, NO incontinence MSK: NO muscle weakness, NO gout, NO arthritis, NO muscle stiffness Neuro: Altered, NO headaches, NO tremors, YES weakness, NO paralysis, NO seizures, NO loss of consciousness, NO numbness. Hem: NO anemia, NO easy bruising/bleeding, NO petechiae, NO purpura Endo: NO heat/cold intolerance, NO excessive sweating, NO polyuria, NO polydipsia, NO polyphagia, NO thyroid problems, NO diabetes Pysch: NO mood, NO anxiety, NO depression Exam Vital Signs Temp Pulse Resp BP Pulse Ox O2 Del Method O2 Flow Rate 97.9 F 69 8 L 142/79 H 91 L BiPAP 4 11/21/24 06:27 11/21/24 13:39 11/21/24 10:52 11/21/24 13:39 11/21/24 10:52 11/21/24 10:52 11/21/24 06:27 FiO2 60 11/21/24 10:14 Narrative Exam General Appearance: Alert & Oriented X0, well-nourished male who is lying in bed in acute distress with increased work of breathing and appearing altered HEENT: Skull symmetrical and atraumatic. Conjunctivae pin and moist. Pupils equal, round, reactive to light and accommodation (PERRL). External ear without lesion or discharge. Straight, nares patient, mucosa pink, no discharge. Cardio: Normal Rate and Rhythm with S1 and S2 heart sounds. No murmurs or extra heart sounds auscultated, difficult to appreciate given body habitus. No bruits on carotid auscultation. YES peripheral edema 2. Lungs: Poor Symmetric expansion. Chest and back non-tender. Reduced vesicular breath sounds with increased wheezing bilaterally. Abdomen: Non-tender, Non-distended, Normal Reactive Bowel Sounds Neuro: Yes Alert, NO cooperative, No oriented to person, NO place, and No time. Speech clear. CN grossly intact. Upper motor strength 5/5 and Lower motor strength 5/5. Sensation intact. Results: Labs 11/22/24 05:55 11/21/24 05:30 Labs: Short CBC 11/21/24 Range/Units 05:30 WBC 6.9 (3.8-10.6) Thou/mm3 Hgb 13.5 (13.5-16.0) g/dL Hct 45.2 (41.0-53.0) % Plt Count 111 L (140-440) Thou/mm3 BMP 11/21/24 05:30 Sodium 140 Potassium 3.8 Chloride 86 L Carbon Dioxide > 40.0 H BUN 20 Creatinine 0.8 Glucose 146 H Calcium 10.0 Cardiac Enzymes 11/21/24 Range/Units 05:30 Troponin I < 0.020 (0.0-0.045) ng/mL Liver Function 11/21/24 Range/Units 05:30 Total Bilirubin 0.3 (0.3-1.2) mg/dL AST 17 (0-34) U/L ALT 16 (10-49) U/L Alkaline Phosphatase 71 (46-116) U/L Albumin 4.4 (3.4-4.8) gm/dL ABG Interpretation ABG results: 11/21/24 11/21/24 11/21/24 06:35 09:40 11:59 ABG pH 7.26 L 7.35 ABG pCO2 136 H* 106 H* D ABG pO2 104 59 L* D ABG HCO3 61 H 58 H ABG O2 Saturation 95 90 L ABG Base Excess 26 H 26 H VBG pH 7.31 L VBG pCO2 113 H VBG pO2 48 VBG Base Excess 24 H Quality Measures Quality Measures none Medications Home Medications and Allergies Home Medications ?Medication ?Instructions ?Recorded ?Confirmed ?Type furosemide 40 mg tablet 40 mg PO BID 11/08/24 11/21/24 History Allergies Allergy/AdvReac Type Severity Reaction Status Date / Time No Known Allergies Allergy Verified 09/15/24 12:27 Visit Medications Acetaminophen (Acetaminophen 325 Mg Tablet) 650 mg PO Q6H PRN PRN Reason: mild pain 1-3 or Fever >100.4 Stop: 12/21/24 12:14 Acetaminophen (Acetaminophen Supp 650 Mg Supp) 650 mg DC Q6H PRN PRN Reason: Pain Scale 1-3 or Fever >100.4 Stop: 12/21/24 12:14 Albuterol/Ipratropium (Albuterol/Ipratropium (Duoneb) Rt Marita 3 Ml Nebu) 3 ml INH Q4HRRT FREDIS Stop: 12/21/24 14:59 Budesonide (Budesonide Rt 0.5 Mg/2 Ml Nebu) 0.5 mg INH BIDRT FREDIS Stop: 12/21/24 18:59 Furosemide (Furosemide Inj 10 Mg/Ml 4ml Vial) 40 mg IVP QDAY FREDIS Stop: 12/21/24 13:14 Last Admin: 11/21/24 13:39 Dose: 40 mg Heparin Sodium (Porcine) (Heparin Sod Inj 5000 Unit/Ml Vial) 5,000 unit SC Q12HR FREDIS Stop: 12/05/24 20:59 Azithromycin 500 mg/ Sodium (Chloride) 250 mls @ 250 mls/hr IV QDAY@1400 FREDIS Stop: 11/29/24 13:59 Methylprednisolone Sodium Succinate (Methylprednisolone Sod Succ 40 Mg Vial) 40 mg IVP Q8HR FREDIS Stop: 11/28/24 14:59 Ondansetron HCl (Ondansetron Inj 2 Mg/Ml Inj 2 Ml) 4 mg IV Q6H PRN; Protocol PRN Reason: NAUSEA OR VOMITING Stop: 12/21/24 12:14 Sennosides (Senna Tablet) 1 tab PO QDAY PRN; Protocol PRN Reason: constipation Stop: 12/21/24 12:14 Discontinued Medications Albuterol/Ipratropium (Albuterol/Ipratropium (Duoneb) Rt Marita 3 Ml Nebu) 3 ml INH X1 ONE Stop: 11/21/24 05:08 Last Admin: 11/21/24 05:14 Dose: 3 ml Flumazenil (Flumazenil Inj 0.1 Mg/Ml Vial 10 Ml) 0.2 mg IVP X1 ONE Stop: 11/21/24 09:34 Last Admin: 11/21/24 09:37 Dose: 0.2 mg Magnesium Sulfate (Magnesium Sulfate Ivpb) 2 gm in 50 mls @ 25 mls/hr IV X1 ONE Stop: 11/21/24 14:21 Last Admin: 11/21/24 13:39 Dose: 25 mls/hr Azithromycin 500 mg/ Sodium (Chloride) 250 mls @ 250 mls/hr IV X1 ONE Stop: 11/21/24 13:29 Last Admin: 11/21/24 13:54 Dose: 250 mls/hr Lorazepam (Lorazepam 2 Mg/Ml Vial) 1 mg IVP X1 ONE Stop: 11/21/24 07:55 Last Admin: 11/21/24 08:02 Dose: 1 mg Methylprednisolone Sodium Succinate (Methylprednisolone Sod Succ 62.5 Mg/Ml 2ml Vial) 125 mg IVP X1 ONE Stop: 11/21/24 06:17 Last Admin: 11/21/24 06:48 Dose: 125 mg Assessment & Plan Plan Patient is a 64-year-old male with a past medical history of hypertension, hyperlipidemia, COPD on 4 L of oxygen at home, active smoker history of paroxysmal A-fib (not Eliquis stopped on previous ), CHF HFpEF 55 to 60%, diastolic dysfunction who was admitted for acute hypercapnic encephaloapthy on 11/21/2024. #Acute Hypercapnic Encaphalopathy Patient arrived altered in the emergency room likely secondary to acute hypercapnic encephalopathy given ABG showing CO2 of 136 and pH of 7.26. [place] Coma score of 11. DDx acute encephalopathy secondary to urinary tract infection cannot be ruled out as UA is still pending versus less likely secondary to stroke as CT head negative. Plan -Treat underlying cause, of hypercapnia secondary to COPD -Pending UA #Acute Hypercapnic Respiratory Failure #S/P Bipap #Generalized weakness, fall #History of severe COPD using 4 L oxygen at home Patient has a past medical history of COPD likely history of CO2 retainer with previous blood gases showing increased CO2. Patient arrived altered requiring BiPaP with an initial ABG showing CO2 136 with second once showed improvement. DDx less likely secondary to CTA as there was no PE noted on imaging. vs pneumonia unlikely as negative flu and covid. Plan: ?Azithromycin 500 mg p.o. daily 10/21 -IV Solu-Medrol 40 mg IVP Q8HR -Duonebs Q4HRRT scheduled -Budesonide 0.5 mg INH BIDRT schedule -Oxygen Support, goal of 88-92% SpO2 #Respiratory Acidosis Abdelrahman acidosis secondary to COPD exacerbation leading to hypercapnic respiratory failure as illustrated by ABG with CO2 of 136 and pH of 7.26 bicarb on admission Plan -Treat COPD exacerbation and allow for oxygen support. #History of HFpEF, EF 55%-60% # Diastolic Dysfuction Grade I #History of hypertension Patient has a past medical history of HFpEF with diastolic dysfunction grade I with no edema noted on physical exam. Given persevere ejection fraction, may still work towards GDMT. Diagnostics: Echo 09/28/2024: Grade I diastolic dysfunction. EF 55-60%. Mild RV dilation. Trace MR, TR. 09/28/2025: Triglycerides 82, Cholestrol 180, LDL 122, HDL 42-->ASCVD 20.4% A1c: 5.0 Home furosemide, eplerenone and dapagliflozin NYHA Class: III Plan: -Lasix 40 IV QDay -Aspiration Precautions -K>4 and Mg >2 -Fluid Restriction and Sodium Restriction 2 g per day -SpO <90%, support PRN -Daily Weights, Strict Ins and Outs, Fluid Striction (1800 ml), Sodium Restriction 2 grams per day -Cardiology Consult, appreciate recommendations. #Hyperlipidemia Started patient on Atorvastatin 40 mg HS given ASCVD 20.4. Plan Atorvastatin 40 mg HS #History of Hypertension No antihypertensive medication listed. Likely controlled given CHF medication. Plan -Monitor BP History of Paroxysmal Atrial Fibrillation ? previously on Eliquis but discontinued, currently rate controlled. #History of seizures ? Will observe, not on antiepileptics #Tobacco Use Disorder Patient has a past medical history of tobacco use and currently still an active smoker. Plan: Nicotine Patch Scheduled. Health Maintenance: Disp: Pt is currently admitted to floors for further management of Acute Hypercapnia Encephalopathy, awaiting ABG 4 PM FEN: Cardiac, 1800 fluid restricted DVT: on subQ heparin Q12hr Code: Full Code - The patient's plan was discussed with attending Dr. Mandel and senior residents Dr. Angelia Dela Cruz MD PGY1 Internal Medicine Attending Provider Attestation/Addendum I have examined the patient, reviewed labs and imaging findings, discussed the case with the resident(s), and reviewed entered orders. I agree with the plan of care as outlined in this note, with these additional summaries/recommendations: Patient is a 64-year-old male with a medical history of chronic tobacco use, COPD on 4 L nasal cannula at baseline, primary hypertension, hyperlipidemia, atrial fibrillation, seizure disorder, and HFpEF who presents to [facility] emergency department on 11/21/2024 with chief complaint of shortness of breath. In the emergency room patient was found to have COPD exacerbation and hospitalist team consulted for continuation of care. # Acute encephalopathy: Most likely secondary to hypercapnia +/- benzodiazepine received in emergency department. Patient's mental status appears to be improving and we will continue to treat underlying cause and monitor for resolution. If not fully resolved we will order additional workup but not indicated at this time. Non-Pharm measures to prevent delirium. # Acute on chronic hypoxic and hypercapnic respiratory failure # COPD exacerbation # Respiratory acidosis with metabolic compensation Patient is well-known to hospitalist service and has been hospitalized multiple times for COPD exacerbation including multiple intubations. Patient is chronic CO2 retainer On admission ABG: pH 7.26, pCO2 136, pO2 104, bicarb 61 Plan: Start scheduled and as needed breathing treatments. Inhaled budesonide. Start IV Solu-Medrol 40 mg IV every 8 hours. Start azithromycin. We will continue BiPAP with serial ABGs. Patient's baseline CO2 appears to be in the 60s or 70s. Wean as tolerated. # Dyslipidemia: Continue home statin # Primary hypertension: Continue home Lasix and monitor blood pressure. # HFpEF: Stable. Outpatient follow-up. Dr. Mandel
--- NOTE | 2024-11-21 15:37 | PC.NURSE ---
pt woke up and took of his bi-pap and threw his mask across the room. pt was yelling asking why he doesn't have his own room yet.
[2024-11-21 16:48] LABS: Collection Type, Urine Clean Catch
--- NOTE | 2024-11-21 16:48 | PC.RT ---
ABG NOT DRAWN AT 1600 DUE TO PT WAKING UP AND BEING COMBATIVE. DR DOYLE NOTIFIED
[2024-11-21 16:54] LABS: Bilirubin,Urine Negative (Negative); Blood,Urine Negative (Negative); Clarity,Urine Clear (Clear/Hazy); Color,Urine Colorless (Lt Yel-Yel); Culture Indicated,Urine Not Indicated; Glucose, Urine Negative (Negative); Ketones,Urine Negative (Negative); Leukocyte Esterase,Urine Positive (Negative); Nitrite,Urine Negative (Negative); PH,Urine 6.5 (5.0-7.0); Protein,Urine Negative (Neg - Trace); RBC,Urine 1 /hpf (0-3); Specific Gravity,Urine 1.012 (1.001-1.035); Squamous Epithelial Cell,Urine 4 /hpf (0-5); Urobilinogen,Urine Negative mg/dL (0.0-1.0); WBC,Urine 5 /hpf (0-5)
[2024-11-21 17:21] LABS: Amphetamine/Methamp Scrn,U Negative (Negative); Barbiturate Screen,Urine Negative (Negative); Benzodiazepines Screen,Urine Negative (Negative); Benzoylecgonine Screen, Ur Negative (Negative); Fentanyl Screen,Urine Negative (Negative); Opiate Screen,Urine Negative (Negative); THC Screen,Urine Negative (Negative)
[2024-11-21] MEDS: BUDESONIDE RT 0.5 MG/2 ML NEBU INH (18:11)
--- NOTE | 2024-11-21 18:24 | PD.RESCONSUL ---
HPI Data of Consult Requesting Physician: Chad Mandel MD Admitting Provider: Chad Mandel MD Attending Provider: Chad Mandel MD Primary Care Provider: Physician No Primary/Family Consult Narrative Reason for consult: hypercapnia History of present illness: Padilla Lowe is a 64 yr male with PMH of hypertension, hyperlipidemia, COPD on 4 L of oxygen at home, active smoker history of paroxysmal A-fib (not Eliquis stopped on previous ), CHF HFpEF 55 to 60%, diastolic dysfunction, and history of seizure (not on any meds) who presented to ED today due to weakness, lethargy. ICU team was consulted after ABGs showed severe hypercapnea with pCO2 136, bicarb >40, pH 7.26. He was started on AVAPS mode with inspiratory phase 0.8, RR 26, and EPAP 8. Repeat ABG after 40 min improved. pCO2 dropped to 106, pH 7.35. Physical exam showed pt to be lethargic but would open eyes to sternal rub/pain. He was able to answer yes/no questions. Patient should continue BiPAP for treatment of hypercapnia. cc:: cc: Chad Mandel MD Exam Vital Signs Temp Pulse Resp BP Pulse Ox O2 Del Method O2 Flow Rate 98.1 F 72 22 H 175/92 H 83 L Nasal Cannula 4 11/21/24 18:08 11/21/24 18:15 11/21/24 18:15 11/21/24 18:08 11/21/24 18:15 11/21/24 18:08 11/21/24 18:15 FiO2 50 11/21/24 15:11 Narrative Exam General: obese, middle aged male, acute distress with increased work of breathing Eyes: Pupils are equal and reactive to light bilaterally HEENT: Atraumatic, normocephalic. No JVD noted. Cardiovascular: Normal S1 and S2. Regular rate and rhythm. Respiratory: wheezing b/L Abdomen: Soft, nontender, normal bowel sounds. Skin: Warm to touch, dry, b/L venous stasis dermatitis, flaking skin, facial dermatitis, cuts from shaving Musculoskeletal: No gross injuries. +1 pedal edema Neuro: GCS11 Results Labs 11/21/24 05:30 11/21/24 05:30 Labs: Short CBC 11/21/24 Range/Units 05:30 WBC 6.9 (3.8-10.6) Thou/mm3 Hgb 13.5 (13.5-16.0) g/dL Hct 45.2 (41.0-53.0) % Plt Count 111 L (140-440) Thou/mm3 BMP 11/21/24 05:30 Sodium 140 Potassium 3.8 Chloride 86 L Carbon Dioxide > 40.0 H BUN 20 Creatinine 0.8 Glucose 146 H Calcium 10.0 Cardiac Enzymes 11/21/24 Range/Units 05:30 Troponin I < 0.020 (0.0-0.045) ng/mL Liver Function 11/21/24 Range/Units 05:30 Total Bilirubin 0.3 (0.3-1.2) mg/dL AST 17 (0-34) U/L ALT 16 (10-49) U/L Alkaline Phosphatase 71 (46-116) U/L Albumin 4.4 (3.4-4.8) gm/dL Urine 11/21/24 Range/Units 16:04 Urine Color Colorless A (Lt Yel-Yel) Urine Clarity Clear (Clear/Hazy) Urine pH 6.5 (5.0-7.0) Ur Specific [place] 1.012 (1.001-1.035) Urine Protein Negative (Neg - Trace) Urine Glucose (UA) Negative (Negative) ABG Interpretation ABG results: 11/21/24 11/21/24 11/21/24 06:35 09:40 11:59 ABG pH 7.26 L 7.35 ABG pCO2 136 H* 106 H* D ABG pO2 104 59 L* D ABG HCO3 61 H 58 H ABG O2 Saturation 95 90 L ABG Base Excess 26 H 26 H VBG pH 7.31 L VBG pCO2 113 H VBG pO2 48 VBG Base Excess 24 H Quality Measures Quality Measures none Medications Home Medications and Allergies Home Medications ?Medication ?Instructions ?Recorded ?Confirmed ?Type furosemide 40 mg tablet 40 mg PO BID 11/08/24 11/21/24 History Allergies Allergy/AdvReac Type Severity Reaction Status Date / Time No Known Allergies Allergy Verified 09/15/24 12:27 Visit Medications Acetaminophen (Acetaminophen 325 Mg Tablet) 650 mg PO Q6H PRN PRN Reason: mild pain 1-3 or Fever >100.4 Stop: 12/21/24 12:14 Acetaminophen (Acetaminophen Supp 650 Mg Supp) 650 mg RI Q6H PRN PRN Reason: Pain Scale 1-3 or Fever >100.4 Stop: 12/21/24 12:14 Albuterol/Ipratropium (Albuterol/Ipratropium (Duoneb) Rt Marita 3 Ml Nebu) 3 ml INH Q4HRRT [facility] Stop: 12/21/24 14:59 Last Admin: 11/21/24 18:11 Dose: 3 ml Atorvastatin Calcium (Atorvastatin Calcium 20 Mg Tablet) 40 mg PO HS [facility] Stop: 12/21/24 20:59 Budesonide (Budesonide Rt 0.5 Mg/2 Ml Nebu) 0.5 mg INH BIDRT [facility]IS Stop: 12/21/24 18:59 Last Admin: 11/21/24 18:11 Dose: 0.5 mg Furosemide (Furosemide Inj 10 Mg/Ml 4ml Vial) 40 mg IVP QDAY [facility] Stop: 12/21/24 13:14 Last Admin: 11/21/24 13:39 Dose: 40 mg Heparin Sodium (Porcine) (Heparin Sod Inj 5000 Unit/Ml Vial) 5,000 unit SC Q12HR [facility] Stop: 12/05/24 20:59 Azithromycin 500 mg/ Sodium (Chloride) 250 mls @ 250 mls/hr IV QDAY@1400 [facility] Stop: 11/29/24 13:59 Methylprednisolone Sodium Succinate (Methylprednisolone Sod Succ 40 Mg Vial) 40 mg IVP Q8HR [facility] Stop: 11/28/24 14:59 Last Admin: 11/21/24 16:15 Dose: 40 mg Ondansetron HCl (Ondansetron Inj 2 Mg/Ml Inj 2 Ml) 4 mg IV Q6H PRN; Protocol PRN Reason: NAUSEA OR VOMITING Stop: 12/21/24 12:14 Sennosides (Senna Tablet) 1 tab PO QDAY PRN; Protocol PRN Reason: constipation Stop: 12/21/24 12:14 Discontinued Medications Albuterol/Ipratropium (Albuterol/Ipratropium (Duoneb) Rt Marita 3 Ml Nebu) 3 ml INH X1 ONE Stop: 11/21/24 05:08 Last Admin: 11/21/24 05:14 Dose: 3 ml Flumazenil (Flumazenil Inj 0.1 Mg/Ml Vial 10 Ml) 0.2 mg IVP X1 ONE Stop: 11/21/24 09:34 Last Admin: 11/21/24 09:37 Dose: 0.2 mg Magnesium Sulfate (Magnesium Sulfate Ivpb) 2 gm in 50 mls @ 25 mls/hr IV X1 ONE Stop: 11/21/24 14:21 Last Infusion: 11/21/24 15:39 Dose: Infused Azithromycin 500 mg/ Sodium (Chloride) 250 mls @ 250 mls/hr IV X1 ONE Stop: 11/21/24 13:29 Last Infusion: 11/21/24 15:09 Dose: Infused Lorazepam (Lorazepam 2 Mg/Ml Vial) 1 mg IVP X1 ONE Stop: 11/21/24 07:55 Last Admin: 11/21/24 08:02 Dose: 1 mg Methylprednisolone Sodium Succinate (Methylprednisolone Sod Succ 62.5 Mg/Ml 2ml Vial) 125 mg IVP X1 ONE Stop: 11/21/24 06:17 Last Admin: 11/21/24 06:48 Dose: 125 mg Assessment & Plan Plan Padilla Lowe is a 64 yr male with PMH of hypertension, hyperlipidemia, COPD on 4 L of oxygen at home, active smoker history of paroxysmal A-fib (not Eliquis stopped on previous ), CHF HFpEF 55 to 60%, diastolic dysfunction, and history of seizure (not on any meds) who presented to ED today due to weakness, lethargy. ICU team was consulted after ABGs showed severe hypercapnea. Neuro: no active problems CVS: #?Hx of afib Questionable hx of a fib. Patient it currently not on any anticoagulants or RR control agents. In NSR since admission. -managment per primary care team #Hx HFpEF -consider resuming home medication furosemide 40 mg BID -epelrenone 25 mg daily (?) Pulm: #Acute hypercapnic resp failure Ddx: GUICHO/OHV, [employer] depression, incompliance, COPD exacerbation -continue AVAPS mode on BiPAP -goal O2 sat 88-92% - inspiratory phase 0.8, RR 26, and EPAP 8 -daily ABG #Hx COPD #COPD exacerbation patient uses 4L oxygen at home and albuterol/Trelegy -continue BiPAP ?Azithromycin 500 mg p.o. daily 10/21 -IV Solu-Medrol 40 mg IVP Q8HR -Duonebs Q4HRRT scheduled -Budesonide 0.5 mg INH BIDRT schedule -Oxygen Support, goal of 88-92% SpO2 Renal: GI: Endo: Heme/Onc: ID: Skin: no active problems The patient's management plan was discussed with my attending physician Dr. Pepe and senior Dr. Serrato. Dana Delvalle, PGY-1
--- NOTE | 2024-11-21 18:45 | PC.NURSE ---
RT AT BEDSIDE PLACING PT BACK ON BIPAP. PT TOLERATING BIPAP WELL AT THIS TIME.
--- NOTE | 2024-11-21 21:04 | PC.NURSE ---
REPORT CALLED TO CECILIO.
[2024-11-21] MEDS: HEPARIN SOD INJ 5000 UNIT/ML VIAL SC (21:52)
[2024-11-21] MEDS: ATORVASTATIN CALCIUM 20 MG TABLET 40 MG PO (23:00)
--- NOTE | 2024-11-21 23:00 | PC.NURSE ---
PT AGITATED REQUESTING TO EAT AND HAVE ICE CHIPS. REMOVED BIPAP. OXYGEN PLACED AT 6L NC WITH O2 SATS AT 88%. BEDSIDE SWALLOW PASSED. MICROWAVABLE MEAL GIVEN.
[2024-11-22] VITALS (11 sets, daily range): BP systolic 100–149; BP diastolic 53–80; PULSE 78–102; RESP 17–42; TEMP 36.5–36.8; O2SAT 88–99
--- NOTE | 2024-11-22 00:21 | PC.NURSE ---
OXYGEN DECREASED TO 5L NC. O2 SATS AT 93%.
[2024-11-22] MEDS: ALBUTEROL/IPRATROPIUM (Duoneb) RT SOL 3 ML NEBU INH ×3 (02:30→18:40)
[2024-11-22 06:50] LABS: Basophils % (Auto) 0 % (0-2.5); Eosinophils % (Auto) 0 % (0-10); Hematocrit 40.5 % (41.0-53.0); Hemoglobin 12.8 g/dL (13.5-16.0); Immature Granulocytes % (Auto) 1 % (0-0); Immature Granulocytes Auto 0.13 Thou/mm3 (0.00-0.00); Lymphocytes # (Auto) 0.4 Thou/mm3 (1.0-4.8); Lymphocytes % (Auto) 3 % (10-50); Mean Corpuscular HGB Conc 31.6 g/dl (31.0-37.0); Mean Corpuscular Volume 98 fL (80-100); Monocytes # (Auto) 0.4 Thou/mm3 (0.0-0.8); Monocytes % (Auto) 3 % (0-12); Neutrophils # (Auto) 10.9 Thou/mm3 (1.8-7.7); Neutrophils % (Auto) 92 % (37-80); Nucleated Red Blood Cell % 0 /100 WBC (0); Platelet Count 124 Thou/mm3 (140-440); RDW Standard Deviation 49.4 fL (35.1-43.9); Red Blood Count 4.13 Miln/mm3 (4.50-5.90); White Blood Count 11.8 Thou/mm3 (3.8-10.6)
[2024-11-22] MEDS: BUDESONIDE RT 0.5 MG/2 ML NEBU INH ×2 (06:54→18:40)
[2024-11-22 07:44] LABS: Alanine Aminotransferase 14 U/L (10-49); Albumin, Serum 4.3 gm/dL (3.4-4.8); Albumin/Globulin Ratio 1.9 (1.2-2.2); Alkaline Phosphatase 56 U/L (46-116); Anion Gap 11 (7-16); Aspartate Amino Transferase 16 U/L (0-34); BUN/Creatinine Ratio 29 Ratio (12-20); Bilirubin,Total 0.3 mg/dL (0.3-1.2); Blood Urea Nitrogen 20 mg/dL (9-23); Calcium 9.4 mg/dL (8.3-10.6); Calcium (Corrected) 9.4 mg/dL (8.5-10.1); Carbon Dioxide > 40.0 mMol/L (20.0-31.0); Chloride 84 mMol/L (98-107); Creatinine (Component) 0.7 mg/dL (0.6-1.3); Estimated Creatinine Clearance 135.7 mL/min (>60); Globulin 2.3 gm/dL (2.3-3.5); Glucose 129 mg/dL (74-106); Magnesium 2.2 mg/dL (1.6-2.6); Osmolality,Calculated 274 (275-295); Phosphorous 1.8 mg/dL (2.4-5.1); Potassium 4.2 mMol/L (3.4-5.1); Sodium 135 mMol/L (136-145); Total Protein 6.6 gm/dL (5.7-8.2); eGFR > 60 See Note
--- NOTE | 2024-11-22 09:13 | PC.NURSE ---
[facility] downtime occurred on 11-22-24 from 0100 to 0700
[2024-11-22] MEDS: HEPARIN SOD INJ 5000 UNIT/ML VIAL SC ×2 (09:22→20:42)
[2024-11-22] MEDS: FUROSEMIDE INJ 10 MG/ML 4ML VIAL 40 MG IVP (09:22)
--- NOTE | 2024-11-22 09:46 | PD.RESPRO ---
Documentation for date of: 11/22/24 Subjective Subjective Interval history: Overnight, patient was disgrunteled over Bipap and removed it. Examined patient at bedside. In the morning patient was desating to low 80s and had increased work of breathing. [place] improved after returning to nasal cannual and increasing to 6 Liters. Restarted Eplerenone (nonformulary) and Farxiga. Patient will continue with Lasix 40 mg Qday. PT--> outpatient PT & re-evaluate ambulation tomorrow. Exam Vital Signs Temp Pulse Resp BP Pulse Ox O2 Del Method O2 Flow Rate 98.0 F 99 24 H 134/65 H 95 Nasal Cannula 4 11/22/24 08:00 11/22/24 09:22 11/22/24 08:20 11/22/24 09:22 11/22/24 08:20 11/22/24 08:00 11/22/24 08:20 FiO2 55 11/22/24 02:30 Narrative Exam General Appearance: Alert & Oriented X0, well-nourished male who is lying in bed in acute distress with increased work of breathing and appearing altered HEENT: Skull symmetrical and atraumatic. Conjunctivae pin and moist. Pupils equal, round, reactive to light and accommodation (PERRL). External ear without lesion or discharge. Straight, nares patient, mucosa pink, no discharge. Cardio: Normal Rate and Rhythm with S1 and S2 heart sounds. No murmurs or extra heart sounds auscultated, difficult to appreciate given body habitus. No bruits on carotid auscultation. YES peripheral edema 1 (at best) Lungs: Poor Symmetric expansion. Chest and back non-tender. Reduced vesicular breath sounds with increased wheezing bilaterally. Abdomen: Non-tender, Non-distended, Normal Reactive Bowel Sounds Neuro: Yes Alert, NO cooperative, No oriented to person, NO place, and No time. Speech clear. CN grossly intact. Upper motor strength 5/5 and Lower motor strength 5/5. Sensation intact. Objective Labs 11/23/24 06:13 11/23/24 06:13 Labs: Laboratory Results - last 24 hr 11/21/24 11/21/24 11/21/24 05:30 11:59 16:04 WBC RBC Hgb Hct MCV MCH MCHC RDW Std Deviation Plt Count Neut % (Auto) Lymph % (Auto) King % (Auto) Eos % (Auto) Baso % (Auto) Neut # (Auto) Lymph # (Auto) King # (Auto) Eos # (Auto) Baso # (Auto) Immature Gran # (Auto) Absolute Nucleated RBC Immature Gran % Nucleated RBC % Puncture Site Left Radial ABG pH 7.35 ABG pCO2 106 H* D ABG pO2 59 L* D ABG HCO3 58 H ABG O2 Saturation 90 L ABG Base Excess 26 H FiO2 30 Sodium Potassium Chloride Carbon Dioxide Anion Gap BUN Creatinine Estim Creat Clear Calc eGFR BUN/Creatinine Ratio Glucose Calculated Osmolality Calcium Corrected Calcium Phosphorus Magnesium Total Bilirubin AST ALT Alkaline Phosphatase Total Protein Albumin Globulin Albumin/Globulin Ratio Free T4 1.15 Ur Collection Type Clean Catch Urine Color Colorless A Urine Clarity Clear Urine pH 6.5 Ur Specific [place] 1.012 Urine Protein Negative Urine Glucose (UA) Negative Urine Ketones Negative Urine Blood Negative Urine Nitrite Negative Urine Bilirubin Negative Urine Urobilinogen (Auto) Negative Ur Leukocyte Esterase Positive Urine RBC 1 Urine WBC 5 Ur Squamous Epith Cells 4 Urine Bacteria None Ur Culture Indicated? Not Indicated Urine Opiates Screen Negative Urine Fentanyl Screen Negative Ur Barbiturates Screen Negative U Amphetamin/Meth Scrn Negative U Benzodiazepines Scrn Negative U Cocaine Metab Screen Negative U Marijuana (THC) Screen Negative 11/22/24 05:55 WBC 11.8 H D RBC 4.13 L Hgb 12.8 L Hct 40.5 L MCV 98 MCH 31.0 MCHC 31.6 RDW Std Deviation 49.4 H Plt Count 124 L Neut % (Auto) 92 H Lymph % (Auto) 3 L King % (Auto) 3 Eos % (Auto) 0 Baso % (Auto) 0 Neut # (Auto) 10.9 H Lymph # (Auto) 0.4 L [place] # (Auto) 0.4 Eos # (Auto) 0.0 Baso # (Auto) 0.0 Immature Gran # (Auto) 0.13 H Absolute Nucleated RBC 0.00 Immature Gran % 1 H Nucleated RBC % 0 Puncture Site ABG pH ABG pCO2 ABG pO2 ABG HCO3 ABG O2 Saturation ABG Base Excess FiO2 Sodium 135 L Potassium 4.2 Chloride 84 L Carbon Dioxide > 40.0 H Anion Gap 11 BUN 20 Creatinine 0.7 Estim Creat Clear Calc 135.7 eGFR > 60 BUN/Creatinine Ratio 29 H Glucose 129 H Calculated Osmolality 274 L Calcium 9.4 Corrected Calcium 9.4 Phosphorus 1.8 L Magnesium 2.2 Total Bilirubin 0.3 AST 16 ALT 14 Alkaline Phosphatase 56 D Total Protein 6.6 Albumin 4.3 Globulin 2.3 Albumin/Globulin Ratio 1.9 Free T4 Ur Collection Type Urine Color Urine Clarity Urine pH Ur Specific [place] Urine Protein Urine Glucose (UA) Urine Ketones Urine Blood Urine Nitrite Urine Bilirubin Urine Urobilinogen (Auto) Ur Leukocyte Esterase Urine RBC Urine WBC Ur Squamous Epith Cells Urine Bacteria Ur Culture Indicated? Urine Opiates Screen Urine Fentanyl Screen Ur Barbiturates Screen U Amphetamin/Meth Scrn U Benzodiazepines Scrn U Cocaine Metab Screen U Marijuana (THC) Screen ABG Interpretation ABG results: 11/21/24 11/21/24 11/21/24 06:35 09:40 11:59 ABG pH 7.26 L 7.35 ABG pCO2 136 H* 106 H* D ABG pO2 104 59 L* D ABG HCO3 61 H 58 H ABG O2 Saturation 95 90 L ABG Base Excess 26 H 26 H VBG pH 7.31 L VBG pCO2 113 H VBG pO2 48 VBG Base Excess 24 H Quality Measures Quality Measures none Assessment & Plan Assessment Current Active Medications: Generic Name Dose Route Start Last Admin Trade Name Freq PRN Reason Stop Dose Admin Acetaminophen 650 mg 11/21/24 12:15 Acetaminophen 325 Mg Tablet PO 12/21/24 12:14 Q6H PRN mild pain 1-3 or Fever >100.4 Acetaminophen 650 mg 11/21/24 12:15 Acetaminophen Supp 650 Mg Supp TN 12/21/24 12:14 Q6H PRN Pain Scale 1-3 or Fever >100.4 Albuterol/Ipratropium 3 ml 11/21/24 15:00 11/22/24 06:54 Albuterol/Ipratropium (Duoneb) Rt Marita 3 Ml Nebu INH 12/21/24 14:59 3 ml Q4HRRT FREDIS Administration Atorvastatin Calcium 40 mg 11/21/24 21:00 11/21/24 23:00 Atorvastatin Calcium 20 Mg Tablet PO 12/21/24 20:59 40 mg HS FREDIS Administration Budesonide 0.5 mg 11/21/24 19:00 11/22/24 06:54 Budesonide Rt 0.5 Mg/2 Ml Nebu INH 12/21/24 18:59 0.5 mg BIDRT FREDIS Administration Furosemide 40 mg 11/21/24 13:15 11/22/24 09:22 Furosemide Inj 10 Mg/Ml 4ml Vial IVP 12/21/24 13:14 40 mg QDAY FREDIS Administration Heparin Sodium (Porcine) 5,000 unit 11/21/24 21:00 11/22/24 09:22 Heparin Sod Inj 5000 Unit/Ml Vial SC 12/05/24 20:59 5,000 unit Q12HR FREDIS Administration Azithromycin 500 mg/ Sodium 250 mls @ 250 mls/hr 11/22/24 14:00 Chloride IV 11/29/24 13:59 QDAY@1400 FREDIS Methylprednisolone Sodium Succinate 40 mg 11/21/24 15:00 11/22/24 06:00 Methylprednisolone Sod Succ 40 Mg Vial IVP 11/28/24 14:59 40 mg Q8HR FREDIS Administration Nicotine 14 mg 11/22/24 09:00 11/22/24 09:32 Nicotine Patch 14 Mg/24 Hr Patch.Td24 TOP 12/22/24 08:59 Not Given QDAY FREDIS Ondansetron HCl 4 mg 11/21/24 12:15 Ondansetron Inj 2 Mg/Ml Inj 2 Ml IV 12/21/24 12:14 Q6H PRN NAUSEA OR VOMITING Protocol Sennosides 1 tab 11/21/24 12:15 Senna Tablet PO 12/21/24 12:14 QDAY PRN constipation Protocol Plan Patient is a 64-year-old male with a past medical history of hypertension, hyperlipidemia, COPD on 4 L of oxygen at home, active smoker history of paroxysmal A-fib (not Eliquis stopped on previous ), CHF HFpEF 55 to 60%, diastolic dysfunction who was admitted for acute hypercapnic encephaloapthy on 11/21/2024. #Acute on chronic Hypercapnic Respiratory Failure #Generalized weakness, fall #Off Bipap-->[place] Patient has a past medical history of COPD likely history of CO2 retainer with previous blood gases showing increased CO2. Patient continues to improve and CO2 on repeat ABG now showing 83 which is down trending form admission. Likely obstructive sleep apnea component as patient does have a Cpap machine at home. DDx less likely secondary to CTA as there was no PE noted on imaging. vs pneumonia unlikely as negative flu and covid. Plan: ?Azithromycin 500 mg p.o. daily 10/21 -IV Solu-Medrol 40 mg IVP Q8HR -Duonebs Q4HRRT scheduled -Budesonide 0.5 mg INH BIDRT schedule -Oxygen Support, goal of 88-92% SpO2 -Please try Bipap at night #Respiratory Acidosis with fully compensated Metabolic alkalosis [place] acidosis secondary to COPD exacerbation leading to hypercapnic respiratory failure as illustrated by ABG with CO2 of 136 and pH of 7.26 bicarb on admission. Improving pH and ABG showing a CO2 of 83 (11/22/2024). Plan -Treat COPD exacerbation and allow for oxygen support. #History of HFpEF, EF 55%-60% # Diastolic Dysfuction Grade I #History of hypertension Patient has a past medical history of HFpEF with diastolic dysfunction grade I with no edema noted on physical exam. Given persevere ejection fraction, may still work towards GDMT. Diagnostics: Echo 09/28/2024: Grade I diastolic dysfunction. EF 55-60%. Mild RV dilation. Trace MR, TR. 09/28/2025: Triglycerides 82, Cholestrol 180, LDL 122, HDL 42-->ASCVD 20.4% A1c: 5.0 Home furosemide, eplerenone and dapagliflozin NYHA Class: III Plan: -Lasix 40 IV QDay -Farxiga 5 mg PO Qday -Eplerenone 25 mg PO Qday (non-formulary) -Aspiration Precautions -K>4 and Mg >2 -Fluid Restriction and Sodium Restriction 2 g per day -SpO <90%, support PRN -Daily Weights, Strict Ins and Outs, Fluid Striction (1800 ml), Sodium Restriction 2 grams per day -Cardiology Consult, appreciate recommendations. #Hyperlipidemia Started patient on Atorvastatin 40 mg HS given ASCVD 20.4. Plan Atorvastatin 40 mg HS #History of Hypertension No antihypertensive medication listed. Likely controlled given CHF medication. Plan -Monitor BP #Acute Hypercapnic Encaphalopathy, resolved. Patient arrived altered in the emergency room likely secondary to acute hypercapnic encephalopathy given ABG showing CO2 of 136 and pH of 7.26. [place] Coma score of 11. DDx acute encephalopathy secondary to urinary tract infection cannot be ruled out as UA is positive for Esterase but no bacteria and no WBC elevation in urine, less likely secondary to cystits. versus less likely secondary to stroke as CT head negative. Plan -Treat underlying cause, of hypercapnia secondary to COPD History of Paroxysmal Atrial Fibrillation ? previously on Eliquis but discontinued, currently rate controlled. #History of seizures ? Will observe, not on antiepileptics #Tobacco Use Disorder Patient has a past medical history of tobacco use and currently still an active smoker. Plan: Nicotine Patch Scheduled. Health Maintenance: Disp: Pt is currently admitted to floors for further management of Acute Hypercapnia Encephalopathy, awaiting ABG 4 PM FEN: Cardiac, 1800 fluid restricted DVT: on subQ heparin Q12hr Code: Full Code - The patient's plan was discussed with attending Dr. Mandel and senior residents Dr. Angelia Dela Cruz MD PGY1 Internal Medicine Senior Resident Attestation: I discussed with and supervised the regulatory internship physician involved in the care of this patient. I personally saw and examined the patient and discussed the assessment and plan with the entire medicine team, including my attending. I agree with the assessment and plan as documented above. [Patient seen and examined. No overnight events. Patient on nasal cannula saturating above 90%. Continue azithromycin, DuoNebs and inhaled steroid. Continue Solu-Medrol. Anticipatory discharge tomorrow.] - Patient's care was discussed with my attending physician. Dustin Gilman MD Internal Medicine PGY-3 Attending Provider Attestation/Addendum I have examined the patient, reviewed labs and imaging findings, discussed the case with the resident(s), and reviewed entered orders. I agree with the plan of care as outlined in this note, with these additional summaries/recommendations: Patient is a 64-year-old male with a medical history of chronic tobacco use, COPD on 4 L nasal cannula at baseline, primary hypertension, hyperlipidemia, atrial fibrillation, seizure disorder, and HFpEF who presents to [facility] department on 11/21/2024 with chief complaint of shortness of breath. In the emergency room patient was found to have COPD exacerbation and hospitalist team consulted for continuation of care. # Acute encephalopathy: Resolved Most likely secondary to hypercapnia +/- benzodiazepine received in emergency department. Plan: Mental status appears back to baseline. No further workup needed at this time. Non-Pharm measures to prevent delirium. # Acute on chronic hypoxic and hypercapnic respiratory failure # COPD exacerbation # Respiratory acidosis with metabolic compensation Patient is well-known to hospitalist service and has been hospitalized multiple times for COPD exacerbation including multiple intubations. Patient is chronic CO2 retainer On admission ABG: pH 7.26, pCO2 136, pO2 104, bicarb 61 Scheduled and as needed DuoNebs, inhaled budesonide, IV Solu-Medrol, and azithromycin Plan: Overall COPD exacerbation and hypercapnia significantly improved. Patient is a chronic retainer at baseline we will avoid overcorrection. Continue BiPAP as needed and treatments listed above. # Dyslipidemia: Continue home statin # Primary hypertension: Continue home Lasix and monitor blood pressure. # HFpEF: Stable. Outpatient follow-up. Dr. Mandel
[2024-11-22 12:06] LABS: Base Excess 27 (-3-3); HCO3 57 mEq/L (20-26); Inspired O2, VO2 Liters 4 L/min; O2 Saturation 91 % (91-98); PCO2 83 mmHg (32.0-48.0); PO2 63 mmHg (83-108); pH, Arterial 7.44 (7.35-7.45)
[2024-11-22 12:07] LABS: Puncture Site Right Radial
--- NOTE | 2024-11-22 13:02 | PC.SS ---
Patient Padilla Lowe is a 64 Year old male admitted for AHRF/COPD Exacerbatiion. SS met with patient at bedside to discuss discharge plan. Patient utilizes a walker to assist with ambulation as well as a wheelchair. Patient utilizes oxygen at home at 4L. Prior to admission patient was able to complete ADL's independently. Patient reports his choice of Pharmacy is [facility]. Patient?s medical surrogate decision maker is Daniel meraz . Patient?s PCP is Nickolas Jones. At time of discharge patient will discharge home. SS was contacted by anurag in PT in regards to patient needed outpatient PT. SS met with patient and he reported he does not have contact number. SS will provide him with outpatient referral form to follow up with outpatient PT. Next of Kin: Daniel Meraz D/C Plan: Home
[2024-11-22 13:08] LABS: Allen Test Performed/OK
[2024-11-22] MEDS: DAPAGLIFLOZIN PROPANEDIOL 5 MG TABLET PO (16:44)
[2024-11-22] MEDS: AZITHROMYCIN INJ 500 MG in SODIUM CHLORIDE 0.9% 250 ML 250 ML 250 MG IV (16:44)
[2024-11-22] MEDS: ATORVASTATIN CALCIUM 20 MG TABLET 40 MG PO (20:42)
--- NOTE | 2024-11-22 21:00 | PC.NURSE ---
Per respiratory therapist, pt refusing to wear BiPap. Monitoring O2 sat on 5LNC. Education to keep monitors on.
[2024-11-23] VITALS (9 sets, daily range): BP systolic 122–140; BP diastolic 58–73; PULSE 66–90; RESP 17–77; TEMP 36.4–36.9; O2SAT 88–99; BMI 30.9
--- NOTE | 2024-11-23 01:00 | PC.NURSE ---
Pt off tele monitor, called by television production assistant and notified not on monitor. RN goes into room to check leads, finds entire monitor, leads, and pulse ox completely off, tele on the floor with batteries on the floor. Pt states pulled off, not able to sleep with monitor. Education provided for need for monitor to stay on to monitor patient, Tele monitors and pulse ox replaced on pt.
[2024-11-23] MEDS: ALBUTEROL/IPRATROPIUM (Duoneb) RT SOL 3 ML NEBU INH ×3 (01:35→12:11)
[2024-11-23] MEDS: BUDESONIDE RT 0.5 MG/2 ML NEBU INH (06:54)
[2024-11-23 07:01] LABS: Basophils % (Auto) 0 % (0-2.5); Eosinophils % (Auto) 0 % (0-10); Hematocrit 43.9 % (41.0-53.0); Hemoglobin 13.8 g/dL (13.5-16.0); Immature Granulocytes % (Auto) 1 % (0-0); Immature Granulocytes Auto 0.11 Thou/mm3 (0.00-0.00); Lymphocytes # (Auto) 0.6 Thou/mm3 (1.0-4.8); Lymphocytes % (Auto) 7 % (10-50); Mean Corpuscular HGB Conc 31.4 g/dl (31.0-37.0); Mean Corpuscular Hemoglobin 30.8 pg (25.0-35.0); Mean Corpuscular Volume 98 fL (80-100); Monocytes # (Auto) 0.3 Thou/mm3 (0.0-0.8); Monocytes % (Auto) 3 % (0-12); Neutrophils # (Auto) 7.8 Thou/mm3 (1.8-7.7); Neutrophils % (Auto) 89 % (37-80); Nucleated Red Blood Cell % 0 /100 WBC (0); Platelet Count 127 Thou/mm3 (140-440); RDW Standard Deviation 50.6 fL (35.1-43.9); Red Blood Count 4.48 Miln/mm3 (4.50-5.90); White Blood Count 8.8 Thou/mm3 (3.8-10.6)
[2024-11-23 07:18] LABS: Alanine Aminotransferase 14 U/L (10-49); Albumin, Serum 4.5 gm/dL (3.4-4.8); Albumin/Globulin Ratio 1.9 (1.2-2.2); Alkaline Phosphatase 58 U/L (46-116); Anion Gap 8 (7-16); Aspartate Amino Transferase 15 U/L (0-34); BUN/Creatinine Ratio 34 Ratio (12-20); Bilirubin,Total 0.4 mg/dL (0.3-1.2); Blood Urea Nitrogen 27 mg/dL (9-23); Calcium 9.5 mg/dL (8.3-10.6); Calcium (Corrected) 9.5 mg/dL (8.5-10.1); Carbon Dioxide > 40.0 mMol/L (20.0-31.0); Chloride 89 mMol/L (98-107); Creatinine (Component) 0.8 mg/dL (0.6-1.3); Estimated Creatinine Clearance 112.8 mL/min (>60); Globulin 2.4 gm/dL (2.3-3.5); Glucose 121 mg/dL (74-106); Magnesium 2.3 mg/dL (1.6-2.6); Osmolality,Calculated 279 (275-295); Potassium 4.2 mMol/L (3.4-5.1); Sodium 137 mMol/L (136-145); Total Protein 6.9 gm/dL (5.7-8.2); eGFR > 60 See Note
[2024-11-23] MEDS: HEPARIN SOD INJ 5000 UNIT/ML VIAL SC (08:05)
[2024-11-23] MEDS: FUROSEMIDE INJ 10 MG/ML 4ML VIAL 40 MG IVP (08:05)
[2024-11-23] MEDS: DAPAGLIFLOZIN PROPANEDIOL 5 MG TABLET PO (08:05)
--- NOTE | 2024-11-23 10:00 | PC.SS ---
SS spoke to Niecy at [facility] in regards to pt needing a tank to travel home. Per Niecy she will dispatch lead driver to hospital. SS met with pt and he stated he will also need an Uber home. SS informed RNMelanie once she is ready and pt is ready for DC to call SS so we can set up Uber.
--- NOTE | 2024-11-23 12:47 | PC.SS ---
SS follow up note; SS met with patient at bedside in regards to any contact number he could be reached at for outpatient PT to contact him. Patient reported he does not have any contact number and refused PT services, stating he will do just fine without PT. SS informed him that Outpatient PT would need to contact him to schedule him an appointment. SS provided patient with T-shirt and will schedule him an Uber tor transport him back home.
--- NOTE | 2024-11-23 13:29 | PD.RESDS ---
Planned Discharge Date 11/23/24 DS: Providers Provider Date of admission: 11/21/24 12:09 Primary care physician: Physician No Primary/Family Admitting Provider: Chad Mandel MD Attending Provider on Admission: Chad Mandel MD Consults: 11/22/24 09:00 Referral Physical Therapy Routine Comment: Physician Instructions: Attending Provider on DC: Muriel Dela Cruz MD Discharging Provider: Muriel Dela Cruz MD DS: Diagnosis Problem List Completed Was Problem List Reviewed/Reconciled?: Yes Hospital Course Hospital Course Hospital course: Summary: Patient is a 64-year-old male with a past medical history of hypertension, hyperlipidemia, COPD on 4 L of oxygen at home, active smoker history of paroxysmal A-fib (not Eliquis stopped on previous ), CHF HFpEF 55% to 60%, diastolic dysfunction who was admitted for acute hypercapnic encephaloapthy on 11/21/2024. ED Course: Patient's vitals on admission 153/81, respiratory rate of 20, heart rate 81, saturating at 89% on 4 L nasal cannula and appeared to have increased work of breathing. Patient was alert but not oriented x 3. CBC was obtained showing WBC within normal limits, hemoglobin and hematocrit within normal limits, MCV of 102, platelets 111 (L). Potassium 3.8, chloride 86, with a bicarb greater than 40. Ammonia level of 33 slightly elevated. Troponin levels within normal limits. EKG no ST elevation noted QT corrected 438 normal QRSD and enlarged left atrial heart. CTA chest showed negative thrombi, Actal ectasis versus possible early pneumonia at the left base. Patient CT head was negative. Medication given: Duonebs X1, Methypredinisolon 125 mg IVP X1, Lorazepam 1 mg IVP X 1, Flumazel 0.2 mg IVP X 1; STARTED on BIpap. [place] Coma Scale (GCS) 11 after Bipap was started. Hospital Course: Patient was hospitalized for acute hypercapnic encephalopathy secondary to acute on chronic hypercapnic respiratory failure. In the emergency room patient's GCS score initially at 3 and improved to 11 after being placed on the BiPAP. Patient's initial blood gas showed pH 7.26 indicating respiratory acidosis partially compensated with a CO2 of 136. Next ABG continue to show improvement with resolution of respiratory acidosis as metabolic alkalosis fully compensated and CO2 continue to improve trending down from 106 to 83. Patient continues to be hospitalized, this is his fifth hospitalization within 2 months secondary to acute on chronic hypercapnic respiratory failure secondary to noncompliance with medication. Patient started on azithromycin for COPD exacerbation and will have 1 more day of azithromycin as outpatient. Blood cultures negative after 48 hours. Patient was started on Solu-Medrol 40 mg IVP Q every 8 hours, DuoNebs, budesonide and oxygen support. Patient's heart failure was recently restarted inpatient including furosemide,eplernone, and dapagliflozin. ASCVD risk of 20.4% and started on Atorvastatin 40 mg HS. Blood pressure continued to be monitored. Nicotine patched scheduled. CTA chest negative. Head CT negative. Instructions: -Please continue azithromycin 500 mg once a day, for one more day for COPD exacerbation -Please continue albuterol inhaler as needed every 6 hours for you COPD exacerbation -Please continue methylprednisolone taper pack for 21 days for your COPD exacerbation -Please continue Trelegy once a day for you COPD -Please continue Eplerenone 25 mg once a day, Furosemide 40 mg oral twice a day, and Dapagliflozin 5 mg once a day for your heart failure -Please monitor weight changes greater than 2 lbs within 2 days and report weight changes to your primary care doctor or pulp grinder as you may need to increase your lasix. -Please monitor fluid intake, 1800 ml per day to limit fluid overload -Please follow up with your primary care provider, and request a physical therapy referral for outpatient -Please follow up with PCP and get sleep studies outpatient -Please follow up with your primary care provider within one week of discharge -If your symptoms worsen,please seek immediate medical attention and return to your nearest emergency room -If you do not have a primary care provider, you [facility] [address], [place] [address], #Acute on chronic Hypercapnic Respiratory Failure, Resolved #COPD exacerbation, improved #COPD #Generalized weakness, fall #Respiratory Acidosis with fully compensated Metabolic alkalosis #History of HFpEF, EF 55%-60% # Diastolic Dysfuction Grade I #Hyperlipidemia #History of Hypertension #Acute Hypercapnic Encaphalopathy, resolved. #History of Paroxysmal Atrial Fibrillation, rate controlled (no eliquis) #History of Seizures, stable #Tobacco Use Disorder - The patient's plan was discussed with attending Dr. Tipton and senior residents Kalina Dela Cruz MD PGY1 Internal Medicine Time Spent with Patient Time attestation: Total time spent providing and/or coordinating discharge services: at least 35 minutes of care and coordination. Exam Vital Signs Temp Pulse Resp BP Pulse Ox O2 Del Method O2 Flow Rate 98.0 F 84 25 H 122/58 L 93 L Nasal Cannula 5 11/23/24 08:00 11/23/24 12:13 11/23/24 12:13 11/23/24 08:05 11/23/24 12:13 11/23/24 08:00 11/23/24 12:13 FiO2 55 11/22/24 12:00 Narrative Exam General Appearance: Alert & Oriented X3, well-nourished male who is lying in bed in acute distress with improved work of breathing HEENT: Skull symmetrical and atraumatic. Conjunctivae pin and moist. Pupils equal, round, reactive to light and accommodation (PERRL). External ear without lesion or discharge. Straight, nares patient, mucosa pink, no discharge. Cardio: Normal Rate and Rhythm with S1 and S2 heart sounds. No murmurs or extra heart sounds auscultated, difficult to appreciate given body habitus. No bruits on carotid auscultation. YES peripheral edema 1 (at best) Lungs: Poor Symmetric expansion. Chest and back non-tender. Reduced vesicular breath sounds with improved wheezing bilaterally. Abdomen: Non-tender, Non-distended, Normal Reactive Bowel Sounds Neuro: Yes Alert, Yes cooperative, No oriented to person, Yes place, and Yes time. Speech clear. CN grossly intact. Upper motor strength 5/5 and Lower motor strength 5/5. Sensation intact. Discharge Plan Plan Patient Disposition: HOME (Self Care) Patient condition on transfer: Stable Care Plan Goals: Instructions: -Please continue azithromycin 500 mg once a day, for one more day for COPD exacerbation -Please continue albuterol inhaler as needed every 6 hours for you COPD exacerbation -Please continue methylprednisolone taper pack for 21 days for your COPD exacerbation -Please continue Trelegy once a day for you COPD -Please continue Eplerenone 25 mg once a day, Furosemide 40 mg oral twice a day, and Dapagliflozin 5 mg once a day for your heart failure -Please monitor weight changes greater than 2 lbs within 2 days and report weight changes to your primary care doctor or pulp grinder as you may need to increase your lasix. -Please monitor fluid intake, 1800 ml per day to limit fluid overload -Please follow up with your primary care provider, and request a physical therapy referral for outpatient -Please follow up with PCP and get sleep studies outpatient -Please follow up with your primary care provider within one week of discharge -If your symptoms worsen,please seek immediate medical attention and return to your nearest emergency room -If you do not have a primary care provider, you [facility] [address], [place] [address], Disposition: Home w/ oxygen Prescriptions/Referrals Prescriptions/Med Rec: Continued albuterol sulfate 90 mcg/actuation aerosol powdr breath activated 2 inh inhalation Q6H PRN (Reason: shortness of breath or wheezing) Qty: 1 3RF furosemide 40 mg tablet 40 mg PO BID Patient Comments: TAKE ONE TABLET BY MOUTH TWICE DAILY A DIURETIC Trelegy Ellipta 200-62.5-25 mcg blister with device 1 inh inhalation Q24H Qty: 60 0RF eplerenone 25 mg tablet 25 mg PO QAM Patient Comments: TAKE ONE TABLET BY MOUTH EVERY MORNING A DIURETIC dapagliflozin propanediol [Farxiga] 5 mg tablet 5 mg PO QAM Patient Comments: TAKE ONE TABLET BY MOUTH EVERY MORNING FOR DIABETES methylprednisolone [Medrol (Agus)] 4 mg tablets,dose pack 4 mg PO QAM Qty: 21 0RF Discontinued azithromycin 500 mg tablet See Rx Instructions .ROUTE .COMPLEX Qty: 3 0RF Rx Instructions: For 500 mg dose pack: take 500 mg once daily for 3 days Referrals: No Primary/Family,Physician [Primary Care Provider] - Patient/Caregiver Discharge Instructions Discharge Activity: activity as tolerated Print Language: Amharic Stand Alone Forms: Maria Del Carmen Award Info., Patient Portal Info Letter Discharge Order Discharge Orders: Discharge (Routine); Ordered 11/23/24 Ordered By: Gustavo Monique Quality Discharge Quality Measures VTE prophylaxis Attestestation Attestation I attest that I was physically present for the evaluation, physical examination, lab and imaging review of the patient with the residents. I discussed the case with the residents and agree with the findings and plans of care as documented above. At bedside today, patient was comfortable. Saturating well on 4 L nasal cannula, which appears to be his baseline. Continues to be alert and oriented, able to answer questions and follow commands appropriately. Rest of the vital signs and lab results continue to be stable. We will discharge patient home on supplemental oxygen. We will continue azithromycin for 1 more day, prednisone taper. Recommended follow-up with PCP in 1 to 2 weeks of discharge. Advised to have a discussion about referral to physical therapy and sleep study as outpatient. Yvonne Tipton MD
== END 2024-11-23 13:13 | disposition home or self-care (01) | DRG 189 ==
LOC: SERX 09:05 → SERHOLD 12:40 → S2NX 21:37
PROVIDERS: Emergency Medicine; Student in an Organized Health Care Education/Training Program; Admitting Provider Student in an Organized Health Care Education/Training Program; Emergency Provider Emergency Medicine; Visit Provider Student in an Organized Health Care Education/Training Program
DX: J96.22 Acute and chronic respiratory failure with hypercapnia (principal); I50.32 Chronic diastolic (congestive) heart failure; G93.49 Other encephalopathy; E87.29 Other acidosis; J44.1 Chronic obstructive pulmonary disease with (acute) exacerbation; E87.4 Mixed disorder of acid-base balance; I11.0 Hypertensive heart disease with heart failure; E78.5 Hyperlipidemia, unspecified; R56.9 Unspecified convulsions; I48.0 Paroxysmal atrial fibrillation; J96.21 Acute and chronic respiratory failure with hypoxia; Z99.81 Dependence on supplemental oxygen; Z91.148 Patient's other noncompliance with medication regimen for other reason; F17.210 Nicotine dependence, cigarettes, uncomplicated; Z79.899 Other long term (current) drug therapy; Z79.51 Long term (current) use of inhaled steroids
CPT/HCPCS: 36415; 36600; 70450; 71045; 71275; 80053; 80307; 80320; 81001; 82140; 82803; 83605; 83690; 83735; 83880; 84100; 84145; 84439; 84443; 84484; 85025; 85379; 87040; 87081; 87400; 87502; 87811; 93005; 94640; 94660; 96365; 96366; 96374; 96375; 96376; 97162; 99285; A4649; A9270; J0456; J1643; J1940; J2060; J2919; J3475; J3490; J7050; J8499; Q9967; G0480

== ENCOUNTER 2024-12-14 22:40 | Inpatient (IN) | payer MEDICARE, MEDICAID, SELFPAY ==
[2024-12-14 22:42] VITALS: BP 151/76; PULSE 84; RESP 18; O2SAT 95
[2024-12-14 22:45] VITALS: PULSE 82; RESP 12; O2SAT 22; BMI 29.8
--- NOTE | 2024-12-14 22:58 | PD.EDSOB ---
ED SOB =RME/HPI General Chief Complaint: Shortness of Breath/Dyspnea Stated Complaint: SOB Time Seen by Provider: 12/14/24 22:56 Arrival date/time: 12/14/24 22:40 RME / HPI RME / HPI Narrative: Dr. Sanchez?s Main ED Evaluation: 64yo male with a history of COPD on 4L, aFib, HTN, HLD BIBA from home presents to the ED for a chief complaint of shortness of breath. Patient states he was feeling short of breath when he was laying in his bed playing games on his phone, but does not know when his shortness of breath worsened. He states he finished his antibiotics yesterday for pneumonia. He denies any chest pain, fever, chills or any other associated symptoms. Patient is a current tobacco smoker, 1 pack per day. He does not wear his CPAP on a regular basis. No known allergies. Related Data Home Medications ?Medication ?Instructions ?Recorded ?Confirmed furosemide 40 mg tablet 40 mg PO BID 11/08/24 11/21/24 dapagliflozin propanediol 5 mg 5 mg PO QAM heart failure 11/22/24 11/22/24 tablet (Farxiga) eplerenone 25 mg tablet 25 mg PO QAM 11/22/24 11/22/24 Previous Rx's ?Medication ?Instructions ?Recorded albuterol sulfate 90 mcg/actuation 2 inh inhalation Q6H PRN shortness 09/20/24 breath activated powder inhaler of breath or wheezing #1 ea fluticasone fur. 200 mcg-umeclid 1 inh inhalation Q24H #60 ea 11/10/24 62.5 mcg-vilant 25 mcg inhalat.powder (Trelegy Ellipta) methylprednisolone 4 mg tablets in 4 mg PO QAM #21 tabs 11/23/24 a dose pack (Medrol (Agus)) Allergies Allergy/AdvReac Type Severity Reaction Status Date / Time No Known Allergies Allergy Verified 12/14/24 22:54 Review of Systems Review of Systems Systems Reviewed: All systems reviewed, normal except as documented Past Medical History Past Medical History NEUROLOGIC: Positive Seizures CARDIAC: Positive Cardiac Disorders, Atrial Fibrillation, Hypercholesterolemia, Congestive Heart Failure and Hypertension RESPIRATORY: Positive Chronic Obstructive Pulmonary Disease (COPD), Asthma and Pneumonia GASTROINTESTINAL: Positive Obesity GENITOURINARY: Negative Renal Disease ENDOCRINE: Negative Diabetes Mellitus Type 1 or Diabetes Mellitus Type 2 HEMATOLOGIC: Negative Sickle Cell Disease PSYCHO/SOCIAL: Positive Recreational Drug Use and Anxiety OTHER HISTORY: Positive Falls; Negative Cancer Surgical History SURGICAL: Positive Open Heart Surgery and Coronary Artery Bypass Graft Social History SMOKING STATUS: Current some day smoker SECOND HAND EXPOSURE: No ED Exam Narrative Physical exam: GENERAL APPEARANCE: alert and oriented x 4, well-developed, well-nourished, no acute distress VITALS: All vitals were reviewed and the pulse ox is 95% 6L/NC, which is adequate according to my interpretation. HEENT: Normocephalic, atraumatic; pupils equal, round, reactive to light; EOMI; mucous membranes pink, moist; oropharynx clear NECK: Supple LUNGS: Severely diminished lung sounds bilaterally; mild scattered wheezes bilaterally, no rales, no rhonchi HEART: Regular rate, regular rhythm; normal S1, S2; no murmurs ABDOMEN: non distended; normal BS; soft, no tenderness, no guarding, no rebound; no masses, no organomegaly, no hernia BACK: no CVA tenderness EXTREMITIES: atraumatic; no edema NEUROLOGIC: awake; alert and oriented x4; cranial nerves II-XII grossly intact; no focal sensory or motor deficits PSYCHIATRIC: appropriate mood and affect SKIN: warm, dry, normal color; no rashes Course Course Course Narrative: CXR is ordered for determining the etiology of shortness of breath. Quality Measures none Orders Category Date Time Status Bedside COVID-19 Antigen Test NOW Care 12/15/24 00:26 Active Chinese Medicine Practitioner NOW Care 12/14/24 23:06 Active Continuous Pulse Oximetry NOW Care 12/14/24 23:05 Completed EKG (ED ONLY) *Do not use* NOW Care 12/14/24 23:06 Completed Insert IV NOW Care 12/14/24 23:06 Completed EKG (ED Only) Stat Exams 12/14/24 23:05 Ordered XR chest 1V portable Stat Exams 12/14/24 23:05 Completed Arterial Blood Gas Stat Lab 12/14/24 23:23 Completed B-Type Natriuretic Peptide Stat Lab 12/14/24 23:23 Completed CBC Stat Lab 12/14/24 23:23 Completed Comprehensive Metabolic Panel Stat Lab 12/14/24 23:23 Completed Magnesium Stat Lab 12/14/24 23:23 Completed Troponin I Stat Lab 12/14/24 23:23 Completed Albuterol/Ipratr Rt Marita [Duoneb Rt Marita] Med 12/14/24 23:04 Discontinued 3 ml INH X1 ONE MethylPREDNISolone.* [SoluMEDROL Inj] Med 12/14/24 23:04 Discontinued 250 mg IVP X1 ONE BiPAP / CPAP NEEDED RT 12/15/24 00:10 Active Oxygen Delivery NOW RT 12/14/24 23:05 Active Vital Signs Vital signs: Vital Signs Pulse Rate 84 12/14/24 22:42 Respiratory Rate 18 12/14/24 22:42 Blood Pressure 151/76 H 12/14/24 22:42 Pulse Oximetry (%) 95 12/14/24 22:42 Oxygen Delivery Method Nasal Cannula 12/14/24 22:42 Oxygen Flow Rate 6 12/14/24 22:42 Procedures -ED Smoking Cessation Time Spent Discussing Smoking Cessation w/Patient (min): 5 Patient Acknowledges Need for Cessation: Yes Additional Comments: The patient was counseled as to the multiple risks to their health from continued use of tobacco products. It was explained that continuing to smoke may lead to multiple short and assisted negative health consequences, including but not limited to mouth/esophageal/lung cancer, COPD, and heart disease. The patient states she/he understands these risks and also understands the options and resources available to them to help them stop smoking. Nicotine replacement therapy, local hotlines, and local resources were discussed as viable options for helping them stop their tobacco use. The total time spent counseling the patient regarding tobacco cessation was 5 minutes. Shortness of Breath / Dyspnea MDM Narrative MDM Narrative:: Scribe Attestation: 12/14/24 - Lola Doshi am scribing for and in the presence of Dr. Sanchez. Patient data External records reviewed:: [facility] previous records (Per chart review, patient was admitted here on 11/21/24 for acute respiratory failure with hypoxia and hypercapnia.) Clinical information provided by:: patient Social determinants that could affect healthcare access:: substance use (tobacco use) Patient has the following chronic illnesses:: COPD on 4L, aFib, HTN, HLD How is presenting disease/condition affected by chronic disease/condition?: exacerbated by Evaluation data The following diagnostics were reviewed and interpreted by me:: lab results, radiology exam(s) and EKG tracing(s) Lab and/or radiology exams considered but not ordered:: none Interpretation Summary: WBC count is normal, Platelets are low at 82, ABG shows an elevated CO2 of 122, HCO3 is elevated at 54, Potassium is elevated at 5.6, Magnesium is normal, Troponin is normal, BNP is normal, according to my interpretation. EKG done at 2258, NSR, rate of 86, normal axis, no ectopy, T wave abnormalities in V1 and V2, no STEMI, according to my interpretation. --------- [facility] Report Signed Patient: LELAND GUTHRIE. Record#: [id number] Birthdate: 1960 Age/Sex: 64 / M Location: [facility] Attending Dr: Ordering Physician: Sunday Sanchez MD Date of Service: 12/14/24 Procedure(s): XR chest 1V portable Accession Number(s): [id number] cc: Thanh Kevin MD; Sunday Sanchez MD~ Examination: AP chest single view Technique one AP portable upright chest single view Exam date and time: September 13, 2025 11:19 PM Comparison November 21, 2024 Indications: Shortness of breath dyspnea today Findings: Mild prominence left ventricle Prominent vascular congestion Suspicious for early septal edema the lung bases Small left pleural effusion Impression: Suspicious for early heart failure Dictated By: Thanh Kevin MD Signed By: <Electronically signed by Thanh Kevin MD in OV> 12/14/24 1812 Medications / Prescriptions Medications or Prescriptions considered but not ordered:: none Medication administrations:: Medication Administration History Discontinued Medications Albuterol/Ipratropium (Albuterol/Ipratropium (Duoneb) Rt Marita 3 Ml Nebu) 3 ml INH X1 ONE Stop: 12/14/24 23:05 Last Admin: 12/14/24 23:15 Dose: 3 ml Documented By: DIGNA Methylprednisolone Sodium Succinate (Methylprednisolone Sod Succ 62.5 Mg/Ml 2ml Vial) 250 mg IVP X1 ONE Stop: 12/14/24 23:05 Last Admin: 12/14/24 23:32 Dose: 250 mg Documented By: TC see above Consultations Consultation(s) initiated? (list below): Yes Consultation #1 (Physician, Specialty, Details): Discussed case with [Dr. Scott] from Hospitalist service regarding admission. Discussed patients ED course, exam findings, labs, and radiology results. The Hospitalist [agrees] to accept the patient for admission. Time: 00:30 Diagnosis Shortness of Breath Differential Diagnosis: congestive heart failure, community acquired pneumonia, pulmonary embolism and other (COPD exacerbation) Most likely diagnosis given after review of the tests above:: see below Admission Indicated Admission indicated?: indicated Admission Request Was there a request for admission?: Yes Admission Attestation Admission request attestation: Discussed case with [] from Hospitalist service regarding admission. Discussed patients ED course, exam findings, labs, and radiology results. The Hospitalist [agrees,declines] to accept the patient for admission. Disposition Plan Disposition Plan: Admit Critical Care Time Critical Care Time Critical Care Time: Yes Total Critical Care Time (min.): 35 Attestation: The high probability of sudden, clinically significant deterioration in the patient?s condition required the highest level of my preparedness to intervene urgently. The services I provided to this patient were to treat and/or prevent clinically significant deterioration. Services included the following: chart data review, reviewing nursing notes and/or old charts, documentation time, project management consultant collaboration regarding findings and treatment options, medication orders and management, direct patient care, vital sign assessments and ordering, interpreting and reviewing diagnostic studies and lab tests. Aggregate critical care time includes only time during which I was engaged in work directly related to the patient?s care, as described above, whether at bedside or elsewhere in the Emergency Department. It did not include time spent performing other reported procedures or the services of residents, students, nurses or physician assistants. Discharge Plan Plan Patient Disposition: Admit Acute Care w/in Hospital Prescriptions/Referrals Prescriptions/Med Rec: No Action albuterol sulfate 90 mcg/actuation aerosol powdr breath activated 2 inh inhalation Q6H PRN (Reason: shortness of breath or wheezing) Qty: 1 3RF furosemide 40 mg tablet 40 mg PO BID Patient Comments: TAKE ONE TABLET BY MOUTH TWICE DAILY A DIURETIC Trelegy Ellipta 200-62.5-25 mcg blister with device 1 inh inhalation Q24H Qty: 60 0RF eplerenone 25 mg tablet 25 mg PO QAM Patient Comments: TAKE ONE TABLET BY MOUTH EVERY MORNING A DIURETIC dapagliflozin propanediol [Farxiga] 5 mg tablet 5 mg PO QAM Patient Comments: TAKE ONE TABLET BY MOUTH EVERY MORNING FOR DIABETES methylprednisolone [Medrol (Agus)] 4 mg tablets,dose pack 4 mg PO QAM Qty: 21 0RF Referrals: Nickolas Jones MD [Primary Care Provider] - In 1 week Problem List Clinical Impression: Hypercapnic respiratory failure, Dehydration, COPD exacerbation, Metabolic acidosis Patient/Caregiver Discharge Instructions Print Language: East Timorese Stand Alone Forms: Maria Del Carmen Award Info., Patient Portal Info Letter
--- NOTE | 2024-12-14 23:05 | XR_ITS ---
Examination: AP chest single view Technique one AP portable upright chest single view Exam date and time: September 13, 2025 11:19 PM Comparison November 21, 2024 Indications: Shortness of breath dyspnea today Findings: Mild prominence left ventricle Prominent vascular congestion Suspicious for early septal edema the lung bases Small left pleural effusion Impression: Suspicious for early heart failure
[2024-12-14 23:08] VITALS: BP 145/57; PULSE 89; PULSE 90; RESP 18; RESP 20; O2SAT 93; O2SAT 95
[2024-12-14] MEDS: ALBUTEROL/IPRATROPIUM (Duoneb) RT SOL 3 ML NEBU INH (23:15)
[2024-12-14 23:27] VITALS: PULSE 83; PULSE 87; RESP 24; O2SAT 94
[2024-12-14 23:28] LABS: Base Excess 21 (-3-3); HCO3 54 mEq/L (20-26); Inspired Oxygen, FIO2 4 %; O2 Saturation 95 % (91-98); PCO2 122 mmHg (32.0-48.0); PO2 95 mmHg (83-108); pH, Arterial 7.26 (7.35-7.45)
[2024-12-14 23:29] LABS: Allen Test Performed/OK; Puncture Site Left Radial
[2024-12-14] MEDS: MethylPREDNISolone SOD SUCC 62.5 MG/ML 2ML VIAL 250 MG IVP (23:32)
[2024-12-14 23:45] LABS: B-Type Natriuretic Peptide 44 pg/mL (0-100)
[2024-12-15] VITALS (24 sets, daily range): BP systolic 112–142; BP diastolic 54–78; PULSE 64–84; RESP 16–38; TEMP 36.2–37.2; O2SAT 86–99
[2024-12-15 00:12] LABS: Basophils % (Auto) 0 % (0-2.5); Eosinophils # (Auto) 0.1 Thou/mm3 (0.0-0.5); Eosinophils % (Auto) 1 % (0-10); Hemoglobin 12.4 g/dL (13.5-16.0); Immature Granulocytes % (Auto) 1 % (0-0); Immature Granulocytes Auto 0.04 Thou/mm3 (0.00-0.00); Lymphocytes # (Auto) 0.9 Thou/mm3 (1.0-4.8); Lymphocytes % (Auto) 17 % (10-50); Mean Corpuscular HGB Conc 30.2 g/dl (31.0-37.0); Mean Corpuscular Hemoglobin 31.2 pg (25.0-35.0); Mean Corpuscular Volume 103 fL (80-100); Monocytes # (Auto) 0.6 Thou/mm3 (0.0-0.8); Monocytes % (Auto) 12 % (0-12); Neutrophils # (Auto) 3.4 Thou/mm3 (1.8-7.7); Neutrophils % (Auto) 69 % (37-80); Nucleated Red Blood Cell % 0 /100 WBC (0); Platelet Count 82 Thou/mm3 (140-440); RDW Standard Deviation 54.5 fL (35.1-43.9); Red Blood Count 3.98 Miln/mm3 (4.50-5.90); White Blood Count 4.9 Thou/mm3 (3.8-10.6)
[2024-12-15 00:19] LABS: Alanine Aminotransferase 18 U/L (10-49); Albumin, Serum 4.2 gm/dL (3.4-4.8); Albumin/Globulin Ratio 1.7 (1.2-2.2); Alkaline Phosphatase 63 U/L (46-116); Anion Gap 10 (7-16); Aspartate Amino Transferase 23 U/L (0-34); BUN/Creatinine Ratio 23 Ratio (12-20); Bilirubin,Total 0.3 mg/dL (0.3-1.2); Blood Urea Nitrogen 14 mg/dL (9-23); Calcium 9.8 mg/dL (8.3-10.6); Calcium (Corrected) 9.8 mg/dL (8.5-10.1); Carbon Dioxide > 40.0 mMol/L (20.0-31.0); Chloride 93 mMol/L (98-107); Creatinine (Component) 0.6 mg/dL (0.6-1.3); Estimated Creatinine Clearance 152.1 mL/min (>60); Globulin 2.5 gm/dL (2.3-3.5); Glucose 102 mg/dL (74-106); Magnesium 2.2 mg/dL (1.6-2.6); Osmolality,Calculated 285 (275-295); Potassium 5.6 mMol/L (3.4-5.1); Sodium 143 mMol/L (136-145); Total Protein 6.7 gm/dL (5.7-8.2); Troponin I < 0.020 ng/mL (0.0-0.045); eGFR > 60 See Note
--- NOTE | 2024-12-15 00:38 | ESHP_ITS ---
Documentation for date of: 12/15/24 [facility] History of Present Illness History of present illness: This is a 64-year-old male with PMHx of COPD with recurrent exacerbation, HFpEF 55 to 60%, on 4 L home oxygen, paroxysmal A-fib, hypertension, hyperlipidemia, presenting with shortness of breath. History is limited as patient is obtunded and on BiPAP. However he is oriented x 3. States progressive worsening shortness of breath over the last few days. Unclear if he is taking his medication including DIURETICS and/or inhalers, he answered answer my questions vaguely. He has history of recurrent admission for COPD exacerbation. Last admission in late October of this year for which he was discharged on occasion as listed below as well as METHYLPREDNISOLONE. Denies headaches, fall, trauma, fever, chills, chest pain, cough, abdominal pain, N/V/D/C, dysuria, urinary frequency, urgency, abnormal bleed, dark stool, sick exposure or recent travel. ED COURSE: BP 151/76, HR 84, RR 18, found desatting on admission. Currently standing low 90s on BiPAP with 40% FiO2. CBC showed Hgb 12.4, MCV 103, no leukocytosis. Chemistry showed potassium 5.6, CO2 >40, normal troponin, normal BNP BG showed pH 7.26, pCO2 122, PaO2 95, bicarb 54. EKG showed sinus rhythm. CXR suspected early heart failure, no pneumonia. Started on BiPAP. Admitted for acute encephalopathy 2/2 AHRF and COPD exacerbation. PMHx: COPD with recurrent exacerbation, HFpEF 55-60%, 4 L home oxygen, paroxysmal A-fib, HTN, HLD PSHx: Not significant. MEDS: From last discharge: ALBUTEROL inhaler, TRELEGY inhaler, FUROSEMIDE 40 mg BID, started on 25 mg daily, FARXIGA 5 mg. ALLERGIES: Unable to obtain. FHx: Unable to obtain. SH: > 82-lzhf-uprc smoking, active smoker with 1 pack daily. Positive creation of drug use Exam Vital Signs Pulse Resp BP Pulse Ox O2 Del Method O2 Flow Rate FiO2 80 38 H 145/57 H 92 L Nasal Cannula 4 40 12/15/24 00:11 12/15/24 00:11 12/14/24 23:08 12/15/24 00:11 12/14/24 23:08 12/14/24 23:27 12/15/24 00:11 Narrative Exam GENERAL * Obtunded, oriented x 3, on BiPAP HEENT * NCAT.?NATANAEL. Oral mucosa is moist. Patent Nares NECK * Supple, nontender, no thyromegaly, no meningismus, no JVD, no step offs CHEST * RRR, no m/g/r * Diffuse wheezing, decreased breath sound bilaterally. No rales or rhonchi. * Atraumatic, nontender, no crepitus, symmetrical expansion. ABDOMEN * Soft, flat, nontender. No guarding/rebound tenderness/masses. * Bowel sounds presents EXTREMITIES * Nontender, no cyanosis, no edema * Chronic stasis of bilateral lower extremities. SKIN * Warm and dry, no jaundice/rashes. NEUROMUSCULAR * Limited exam as patient is obtunded. * No lumbar or midline, no CVA, no paraspinal muscle spasm or tenderness. * No focal neurologic deficits. PSYCHIATRY * Difficult to arouse, cooperative, no SI or HI or hallucinations. Results: Labs 12/14/24 23:23 12/14/24 23:23 Labs: Short CBC 12/14/24 Range/Units 23:23 WBC 4.9 (3.8-10.6) Thou/mm3 Hgb 12.4 L (13.5-16.0) g/dL Hct 41.0 (41.0-53.0) % Plt Count 82 L D (140-440) Thou/mm3 BMP 12/14/24 23:23 Sodium 143 Potassium 5.6 H Chloride 93 L Carbon Dioxide > 40.0 H BUN 14 Creatinine 0.6 Glucose 102 Calcium 9.8 Cardiac Enzymes 12/14/24 Range/Units 23:23 Troponin I < 0.020 (0.0-0.045) ng/mL Liver Function 12/14/24 Range/Units 23:23 Total Bilirubin 0.3 (0.3-1.2) mg/dL AST 23 (0-34) U/L ALT 18 (10-49) U/L Alkaline Phosphatase 63 (46-116) U/L Albumin 4.2 (3.4-4.8) gm/dL ABG Interpretation ABG results: 12/14/24 23:23 ABG pH 7.26 L ABG pCO2 122 H* ABG pO2 95 ABG HCO3 54 H ABG O2 Saturation 95 ABG Base Excess 21 H Quality Measures Quality Measures none Medications Home Medications and Allergies Home Medications ?Medication ?Instructions ?Recorded ?Confirmed ?Type furosemide 40 mg tablet 40 mg PO BID 11/08/24 History dapagliflozin propanediol 5 mg 5 mg PO QAM heart failu re 11/22/24 11/22/24 History tablet (Farxiga) eplerenone 25 mg tablet 25 mg PO QAM 11/22/24 History Allergies Allergy/AdvReac Type Severity Reaction Status Date / Time No Known Allergies Allergy Verified 12/14/24 22:54 Visit Medications Acetaminophen (Acetaminophen 325 Mg Tablet) 650 mg PO Q6H PRN PRN Reason: PAIN SCALE 1-3 (mild Stop: 01/14/25 00:30 Acetaminophen (Acetaminophen 325 Mg Tablet) 650 mg PO Q6H PRN PRN Reason: Fever >100.4 Stop: 01/14/25 00:30 Albuterol/Ipratropium (Albuterol/Ipratropium (Duoneb) Rt Marita 3 Ml Nebu) 3 ml INH Q4HRRT FREDIS Stop: 01/14/25 02:59 Enoxaparin Sodium (Enoxaparin Sod Inj 40 Mg/0.4 Ml Syringe) 40 mg SC QDAY FREDIS Stop: 12/29/24 08:59 Sodium Chloride (Ns) 500 mls @ 999 mls/hr IV .Q31M ONE Stop: 12/15/24 01:02 Azithromycin 250 mg/ Sodium (Chloride) 250 mls @ 250 mls/hr IV QDAY FREDIS Stop: 12/22/24 00:31 Nicotine (Nicotine Patch 14 Mg/24 Hr Patch.Td24) 14 mg TOP QDAY FREDIS Stop: 01/14/25 08:59 Ondansetron HCl (Ondansetron Inj 2 Mg/Ml Inj 2 Ml) 4 mg IV Q6H PRN; Protocol PRN Reason: NAUSEA OR VOMITING Stop: 01/14/25 00:30 Pantoprazole Sodium (Pantoprazole Inj 40 Mg Vial) 40 mg IVP QDAY FREDIS Stop: 01/14/25 08:59 Prednisone (Prednisone 20 Mg Tablet) 40 mg PO QDAY FREDIS Stop: 12/20/24 08:59 Discontinued Medications Albuterol/Ipratropium (Albuterol/Ipratropium (Duoneb) Rt Marita 3 Ml Nebu) 3 ml INH X1 ONE Stop: 12/14/24 23:05 Last Admin: 12/14/24 23:15 Dose: 3 ml Calcium Gluconate (Calcium Gluconate 10% Inj 1 Gm/10 Ml Vial) 1 gm IV X1 ONE Stop: 12/15/24 00:38 Dextrose (Dextrose 50%-Water Inj 50 Ml Syringe) 50 ml IV X1 ONE Stop: 12/15/24 00:38 Insulin Human Regular (Insulin Hum Regular 1 Unit/0.01 Ml (Per Unit)) 5 unit IV X1 ONE Stop: 12/15/24 00:38 Methylprednisolone Sodium Succinate (Methylprednisolone Sod Succ 62.5 Mg/Ml 2ml Vial) 250 mg IVP X1 ONE Stop: 12/14/24 23:05 Last Admin: 12/14/24 23:32 Dose: 250 mg Sodium Polystyrene Sulfonate (Sod Polystyrene Sulfon Susp 15 Gm/60 Ml Btl) 30 gm PO X1 ONE Stop: 12/15/24 00:38 Assessment & Plan Plan In summary: 64-year-old male with PMHx of COPD with recurrent exacerbations, on 4 L home oxygen, HFpEF 55-60%, active smoker, A-fib, HTN, HLD, admitted for acute encephalopathy in settings of COPD exacerbation and hypercapnia. #Acute encephalopathy #Acute hypoxemic, hypercapnic respiratory failure #COPD exacerbation #Active smoker #Respiratory acidosis, secondary metabolic alkalosis Encephalopathy most likely secondary to hypercapnia. Previously admitted on 11/23 for similar symptoms, discharged on ANTIBIOTICS, advised to stop smoking. Continue smoking 1 pack daily. Presents with worsening shortness of breath over the last few days. Wheezing and decreased breath was bilaterally, tachypneic with RR 38. ABG pH 7.26, pCO2 122, bicarb 54, pO2 95. Currently satting 92% on BiPAP/FiO2 40%. CXR showed hyperinflation, early mild CHF, no pneumonia. ? Admission telemetry ? Continue AZITHROMYCIN (12/15 to present) ? Continue PREDNISONE 40 mg daily ? Continue DuoNebs q.6h. ? Continue on BiPAP ? Repeat ABG in 1 hour #Hyperkalemia From acidosis Potassium 5.6. Asymptomatic. No T wave abnormalities on EKG. Given CALCIUM GLUCONATE 1 mg x 1, INSULIN 5 units, KAYEXALATE 30 mg x 1 ? Trending potassium #HFpEF 55-60% Last echo from 09/2024 with grade 1 diastolic dysfunction. Low concern for CHF exacerbation, no crackles on lung exam, no lower extremity edema, BNP normal. ? Continue home LASIX 40 BID ? Continue home DAPAGLIFLOZIN 5 mg ? Resume home EPLERENONE 25 mg when stable #Paroxysmal A-fib #HTN #HLD EKG sinus rhythm. HR 80s. Currently normotensive. He was on ATORVASTATIN 40 mg on last admission, however did not discharge on statin. ? Consider restarting ATORVASTATIN 40 mg HS #Chronic macrocytic anemia Hgb 12.4, MCV 103, around baseline. No signs or symptoms of active bleed. ? Recommended outpatient follow-up #Tobacco dependency Active smoker with 60?30-knut-xlik smoking. ? Daily NICOTINE patch ? Recommended NICOTINE cessation given recurrent COPD exacerbation. Health maintenance Diet: NPO GI prophylaxis: PROTONIX DVT prophylaxis: ELIQUIS Antibiotics: AZITHROMYCIN CODE STATUS: Full code Disposition: Treating COPD exacerbation. Patient case was discussed with attending, David Scott MD. Mihir Strong DO PGYI Attending Provider Attestation/Addendum Pt was evaluated and plan formulated together with the housestaff team. I have reviewed the residents note above and agree with most of its content. Please refer to the residents note for additional details.
[2024-12-15] MEDS: DEXTROSE 50%-WATER INJ 50 ML SYRINGE IV (01:42)
[2024-12-15] MEDS: CALCIUM GLUCONATE 10% INJ 1 GM/10 ML VIAL IV (01:43)
[2024-12-15] MEDS: AZITHROMYCIN INJ 250 MG in SODIUM CHLORIDE 0.9% 250 ML 250 ML IV ×2 (01:43→20:08)
[2024-12-15] MEDS: INSULIN HUM REGULAR 1 UNIT/0.01 ML (PER UNIT) 5 UNIT IV (01:45)
[2024-12-15] MEDS: SODIUM CHLORIDE 0.9% 500 ML 500 ML 999 ML IV (01:47)
[2024-12-15 01:51] LABS: Base Excess 21 (-3-3); HCO3 53 mEq/L (20-26); O2 Saturation 83 % (91-98); PCO2 114 mmHg (32.0-48.0); pH, Arterial 7.27 (7.35-7.45)
[2024-12-15 01:52] LABS: Puncture Site Right Radial
[2024-12-15 01:53] LABS: Allen Test Performed/OK; Inspired Oxygen, FIO2 60 %
[2024-12-15 01:54] LABS: PO2 48 mmHg (83-108)
[2024-12-15] MEDS: ALBUTEROL/IPRATROPIUM (Duoneb) RT SOL 3 ML NEBU INH ×6 (03:29→22:00)
--- NOTE | 2024-12-15 03:41 | PC.RT ---
pt transfered to [facility] without complications on bipap 18/, 60% fio2 20RR, pt tolerating bipap no distress noted at this time.
[2024-12-15 05:15] LABS: Base Excess 20 (-3-3); HCO3 51 mEq/L (20-26); Inspired Oxygen, FIO2 21 %; O2 Saturation 91 % (91-98); PCO2 101 mmHg (32.0-48.0); PO2 62 mmHg (83-108); pH, Arterial 7.31 (7.35-7.45)
[2024-12-15 05:31] LABS: Allen Test Performed/OK; Puncture Site Right Radial
[2024-12-15] MEDS: Furosemide 40 MG TABLET PO (05:33)
--- NOTE | 2024-12-15 05:40 | PC.NURSE ---
Pt is DANIEOsavage per Dr. Strong to give po lasix with a sip of water.
--- NOTE | 2024-12-15 05:49 | PC.RT ---
settings changed to 20/6, RR22 per abg results fio2 increased to 55% due to spo2 87% improved to 91%
[2024-12-15 06:49] LABS: Alanine Aminotransferase 16 U/L (10-49); Albumin, Serum 3.7 gm/dL (3.4-4.8); Albumin/Globulin Ratio 1.8 (1.2-2.2); Alkaline Phosphatase 55 U/L (46-116); Anion Gap 9 (7-16); Aspartate Amino Transferase 20 U/L (0-34); BUN/Creatinine Ratio 25 Ratio (12-20); Bilirubin,Total 0.4 mg/dL (0.3-1.2); Blood Urea Nitrogen 15 mg/dL (9-23); Calcium 9.4 mg/dL (8.3-10.6); Calcium (Corrected) 9.6 mg/dL (8.5-10.1); Carbon Dioxide > 40.0 mMol/L (20.0-31.0); Chloride 92 mMol/L (98-107); Creatinine (Component) 0.6 mg/dL (0.6-1.3); Estimated Creatinine Clearance 154.4 mL/min (>60); Globulin 2.1 gm/dL (2.3-3.5); Glucose 175 mg/dL (74-106); Osmolality,Calculated 286 (275-295); Phosphorous 1.9 mg/dL (2.4-5.1); Potassium 5.7 mMol/L (3.4-5.1); Sodium 141 mMol/L (136-145); Total Protein 5.8 gm/dL (5.7-8.2); eGFR > 60 See Note
[2024-12-15 07:18] LABS: Basophils % (Auto) 0 % (0-2.5); Eosinophils % (Auto) 0 % (0-10); Hematocrit 39.4 % (41.0-53.0); Hemoglobin 12.3 g/dL (13.5-16.0); Immature Granulocytes % (Auto) 1 % (0-0); Immature Granulocytes Auto 0.04 Thou/mm3 (0.00-0.00); Lymphocytes # (Auto) 0.3 Thou/mm3 (1.0-4.8); Lymphocytes % (Auto) 5 % (10-50); Mean Corpuscular HGB Conc 31.2 g/dl (31.0-37.0); Mean Corpuscular Hemoglobin 31.4 pg (25.0-35.0); Mean Corpuscular Volume 101 fL (80-100); Monocytes # (Auto) 0.1 Thou/mm3 (0.0-0.8); Monocytes % (Auto) 1 % (0-12); Neutrophils # (Auto) 5.2 Thou/mm3 (1.8-7.7); Neutrophils % (Auto) 93 % (37-80); Nucleated Red Blood Cell % 0 /100 WBC (0); RDW Standard Deviation 53.1 fL (35.1-43.9); Red Blood Count 3.92 Miln/mm3 (4.50-5.90); White Blood Count 5.5 Thou/mm3 (3.8-10.6)
[2024-12-15 07:27] LABS: Platelet Count 70 Thou/mm3 (140-440)
[2024-12-15] MEDS: predniSONE 20 MG TABLET 40 MG PO (10:01)
[2024-12-15] MEDS: PANTOPRAZOLE INJ 40 MG VIAL IVP (10:01)
[2024-12-15] MEDS: DAPAGLIFLOZIN PROPANEDIOL 5 MG TABLET 10 MG PO (10:02)
[2024-12-15] MEDS: SOD PHOS ADDITIVE 30 MMOL in SODIUM CHLORIDE 0.9% 500 ML 500 ML 62.5 MMOL IV (10:16)
[2024-12-15 11:11] LABS: Slide Review Platelets confirmed
--- NOTE | 2024-12-15 11:40 | ESPR_ITS ---
<Statement entered by Vernon Sanderson MD - 12/16/24 07:37> I discussed with and supervised the international representative physician involved in the care of this patient. Patient assessment and plan was discussed with entire medicine team, including my attending. I agree with the assessment and plan as documented by international representative doctor. Patient care was discussed with my attending physician Dr. Gonzales Sanderson, PGY-2 Documentation for date of: 12/15/24 Subjective Subjective Interval history: 12/15/2024: Overnight admission for COPD exacerbation and acute hypercapnic respiratory failure. Patient seen and examined in hospital bed on BIPAP requesting diet. On exam, patient is short with answers and on BIPAP satting 89- 90% (IPAP 20 EPAP 6). Patient's lung sounds are distant and reduced but without any appreciable wheezing/rales/rhonci or crackles. When interviewing the patient he denies using home CPAP/BIPAP regularly and states he does not take all of his prescribed medications for COPD and heart failure. Patient also has hyperkalemia but recieved temporizing measures; declined kayexalate. Will continue to treat patient with IV abx, steroids and monitor for any acute changes with morning ABG and labs. Exam Vital Signs Temp Pulse Resp BP Pulse Ox O2 Del Method O2 Flow Rate 97.5 F 75 25 H 141/77 H 99 BiPAP 4 12/15/24 08:00 12/15/24 10:10 12/15/24 10:10 12/15/24 08:00 12/15/24 10:10 12/15/24 08:00 12/14/24 23:27 FiO2 55 12/15/24 10:10 Narrative Exam Physical Exam: GENERAL: Awake, answering questions appropriately but is short, on BIPAP satting 89-90% HEENT: NC/AT. Moist mucosa. PERRLA/EOMI. CARDIO: Heart RRR, no obvious murmurs, no JVD. PULM: Distant and reduced lung sounds. No wheezing, crackles, rales or rhonci. GI: Abdomen soft, NT/ND, +BS. SKIN/MSK/EXT: No wounds/discoloration/rashes/edema/amputations. +Pedal pulses present B/L. NEURO: Oriented x3, Moves extremities x4 and no focal neurological deficits noted. Objective Labs 12/15/24 06:40 12/15/24 04:45 Labs: Laboratory Results - last 24 hr 12/14/24 12/15/24 12/15/24 23:23 01:43 04:45 WBC 4.9 RBC 3.98 L Hgb 12.4 L Hct 41.0 MCV 103 H MCH 31.2 MCHC 30.2 L RDW Std Deviation 54.5 H Plt Count 82 L D Neut % (Auto) 69 Lymph % (Auto) 17 [place] % (Auto) 12 Eos % (Auto) 1 Baso % (Auto) 0 Neut # (Auto) 3.4 Lymph # (Auto) 0.9 L [place] # (Auto) 0.6 Eos # (Auto) 0.1 Baso # (Auto) 0.0 Immature Gran # (Auto) 0.04 H Absolute Nucleated RBC 0.00 Immature Gran % 1 H Nucleated RBC % 0 Puncture Site Left Radial Right Radial ABG pH 7.26 L 7.27 L ABG pCO2 122 H* 114 H* ABG pO2 95 48 L* D ABG HCO3 54 H 53 H ABG O2 Saturation 95 83 L ABG Base Excess 21 H 21 H FiO2 4 60 Sodium 143 141 Potassium 5.6 H 5.7 H Chloride 93 L 92 L Carbon Dioxide > 40.0 H > 40.0 H Anion Gap 10 9 BUN 14 15 Creatinine 0.6 0.6 Estim Creat Clear Calc 152.1 154.4 eGFR > 60 > 60 BUN/Creatinine Ratio 23 H 25 H Glucose 102 175 H D Calculated Osmolality 285 286 Calcium 9.8 9.4 Corrected Calcium 9.8 9.6 Phosphorus 1.9 L Magnesium 2.2 2.0 Total Bilirubin 0.3 0.4 AST 23 20 ALT 18 16 Alkaline Phosphatase 63 55 Troponin I < 0.020 B-Natriuretic Peptide 44 Total Protein 6.7 5.8 Albumin 4.2 3.7 D Globulin 2.5 2.1 L Albumin/Globulin Ratio 1.7 1.8 Misc Test Result 12/15/24 12/15/24 04:55 06:40 WBC 5.5 RBC 3.92 L Hgb 12.3 L Hct 39.4 L MCV 101 H MCH 31.4 MCHC 31.2 RDW Std Deviation 53.1 H Plt Count 70 L Neut % (Auto) 93 H Lymph % (Auto) 5 L [place] % (Auto) 1 Eos % (Auto) 0 Baso % (Auto) 0 Neut # (Auto) 5.2 Lymph # (Auto) 0.3 L [place] # (Auto) 0.1 Eos # (Auto) 0.0 Baso # (Auto) 0.0 Immature Gran # (Auto) 0.04 H Absolute Nucleated RBC 0.00 Immature Gran % 1 H Nucleated RBC % 0 Puncture Site Right Radial ABG pH 7.31 L ABG pCO2 101 H* D ABG pO2 62 L ABG HCO3 51 H ABG O2 Saturation 91 ABG Base Excess 20 H FiO2 21 Sodium Potassium Chloride Carbon Dioxide Anion Gap BUN Creatinine Estim Creat Clear Calc eGFR BUN/Creatinine Ratio Glucose Calculated Osmolality Calcium Corrected Calcium Phosphorus Magnesium Total Bilirubin AST ALT Alkaline Phosphatase Troponin I B-Natriuretic Peptide Total Protein Albumin Globulin Albumin/Globulin Ratio Misc Test Result Platelets confirmed ABG Interpretation ABG results: 12/14/24 12/15/24 12/15/24 23:23 01:43 04:55 ABG pH 7.26 L 7.27 L 7.31 L ABG pCO2 122 H* 114 H* 101 H* D ABG pO2 95 48 L* D 62 L ABG HCO3 54 H 53 H 51 H ABG O2 Saturation 95 83 L 91 ABG Base Excess 21 H 21 H 20 H Quality Measures Quality Measures none Assessment & Plan Assessment Current Active Medications: Generic Name Dose Route Start Last Admin Trade Name Freq PRN Reason Stop Dose Admin Acetaminophen 650 mg 12/15/24 00:31 Acetaminophen 325 Mg Tablet PO 01/14/25 00:30 Q6H PRN PAIN SCALE 1-3 (mild Acetaminophen 650 mg 12/15/24 00:31 Acetaminophen 325 Mg Tablet PO 01/14/25 00:30 Q6H PRN Fever >100.4 Albuterol/Ipratropium 3 ml 12/15/24 03:00 12/15/24 10:09 Albuterol/Ipratropium (Duoneb) Rt Marita 3 Ml Nebu INH 01/14/25 02:59 3 ml Q4HRRT FREDIS Administration Dapagliflozin 10 mg 12/15/24 09:00 12/15/24 10:02 Dapagliflozin Propanediol 5 Mg Tablet PO 01/14/25 08:59 10 mg QAM FREDIS Administration Enoxaparin Sodium 40 mg 12/16/24 09:00 Enoxaparin Sod Inj 40 Mg/0.4 Ml Syringe SC 12/30/24 08:59 QDAY FREDIS Furosemide 40 mg 12/16/24 09:00 Furosemide Inj 10 Mg/Ml 4ml Vial IVP 01/15/25 08:59 QDAY FREDIS Azithromycin 250 mg/ Sodium 250 mls @ 250 mls/hr 12/15/24 21:00 Chloride IV 12/22/24 20:59 QDAY@2100 FREDIS Sodium Phosphate 30 mmol/ 510 mls @ 62.5 mls/hr 12/15/24 07:59 12/15/24 10:16 Sodium Chloride IV 12/15/24 16:08 62.5 mls/hr X1 ONE Administration Nicotine 14 mg 12/15/24 09:00 12/15/24 10:03 Nicotine Patch 14 Mg/24 Hr Patch.Td24 TOP 01/14/25 08:59 Not Given QDAY FREDIS Ondansetron HCl 4 mg 12/15/24 00:31 Ondansetron Inj 2 Mg/Ml Inj 2 Ml IV 01/14/25 00:30 Q6H PRN NAUSEA OR VOMITING Protocol Pantoprazole Sodium 40 mg 12/15/24 09:00 12/15/24 10:01 Pantoprazole Inj 40 Mg Vial IVP 01/14/25 08:59 40 mg QDAY FREDIS Administration Prednisone 40 mg 12/15/24 09:00 12/15/24 10:01 Prednisone 20 Mg Tablet PO 12/20/24 08:59 40 mg QDAY FREDIS Administration Plan 64-year-old male with PMHx of COPD with recurrent exacerbations, on 4 L home oxygen, HFpEF 55-60%, active smoker, A-fib, HTN, HLD, admitted for acute encephalopathy in settings of COPD exacerbation and hypercapnia. #Acute hypercapnic respiratory failure secondary to, #COPD exacerbation #Active smoker #Respiratory acidosis and secondary metabolic alkalosis Encephalopathy most likely secondary to hypercapnia. Previously admitted on 11/23 for similar symptoms, discharged on ANTIBIOTICS, advised to stop smoking. Continue smoking 1 pack daily. Presents with worsening shortness of breath over the last few days. Initial ABG pH 7.26, pCO2 122, bicarb 54, pO2 95 improved to ABG pH 7.31, pCO2 101, pO2 62 and bicarb of 51 on BIPAP Currently satting 92% on BiPAP/FiO2 40%. CXR showed hyperinflation, early mild CHF, no pneumonia Plan: Continue azithromycin (12/15 to present) Continue prednisone 40 mg daily Continue DuoNebs q.6h. Continue on BiPAP Repeat ABG in the AM #Hyperkalemia Secondary to metabolic alkalosis; compensation for COPD Potassium 5.6. Asymptomatic. No T wave abnormalities on EKG. Given calcium gluconate 1 mg x 1 and regular insulin 5 units Patient refused kayexalate 30 mg x 1 Patient receiving Duonebs q4h Plan: Monitor with morning labs #HFpEF 55-60% Last echo from 09/2024 with grade 1 diastolic dysfunction. Low concern for CHF exacerbation, no crackles on lung exam, no lower extremity edema, no JVD, BNP normal Plan: Changed Lasix to 40mg IV qday Increased dapagliflozin 10 mg Strict I/Os Daily weight Cardiac diet Holding home eplerenone 25 mg when stable #Paroxysmal A-fib #Hypertension #Hyperlipidemia EKG sinus rhythm. HR 80s. Currently normotensive. He was on atorvastatin 40 mg on last admission, however did not discharge on statin No home anticoagulation noted Plan: Consider restarting atorvastatin 40 mg HS #Chronic macrocytic anemia Hgb 12.4, MCV 103, around baseline. No signs or symptoms of active bleed Plan: Vit B12 and Folate labs ordered Recommended outpatient follow-up #Tobacco dependency Active smoker with [id number]?[id number] smoking Plan: Daily nicotine patch Smoking cessation counselled Health Management: Lines: PIV Diet: Cardiac Bowel: Senna GI prophylaxis: Protonix DVT prophylaxis: Lovenox Dispo: Treating COPD exacerbation Code: Full Patient seen and examined with attending Dr. Rolon and senior resident Dr. Kin Narayan, PGY-1 Attending Provider Attestation/Addendum Kristina Doshi, , attest that I was physically present for the malone portions of the service and evaluated the patient with the resident and I reviewed and discussed the case with the resident and agree with the resident's findings and plans of care as documented above Patient seen and evaluated this AM. He states he is feeling better. Patient admits that he has not been using his Trilogy at home. Patient has been removing his BiPap mask and states that he is hungry. Mental status appears much improved. Patient willing to compromise if he gets food. Will order BiPap with rest/sleep. Will repeat ABG. Will decrease lasix to 40mg IV daily as he does not appear overtly fluid overloaded. Continue with steroids and breathing treatments.
[2024-12-15 16:34] LABS: Albumin, Serum 3.6 gm/dL (3.4-4.8); Anion Gap 9 (7-16); BUN/Creatinine Ratio 19 Ratio (12-20); Blood Urea Nitrogen 15 mg/dL (9-23); Calcium 9.1 mg/dL (8.3-10.6); Calcium (Corrected) 9.4 mg/dL (8.5-10.1); Carbon Dioxide > 40.0 mMol/L (20.0-31.0); Chloride 90 mMol/L (98-107); Creatinine (Component) 0.8 mg/dL (0.6-1.3); Estimated Creatinine Clearance 115.8 mL/min (>60); Glucose 149 mg/dL (74-106); Osmolality,Calculated 281 (275-295); Phosphorous 2.3 mg/dL (2.4-5.1); Potassium 4.7 mMol/L (3.4-5.1); Sodium 139 mMol/L (136-145); eGFR > 60 See Note
[2024-12-16] VITALS (12 sets, daily range): BP systolic 115–159; BP diastolic 56–70; PULSE 70–99; RESP 18–24; TEMP 36.3–37.4; O2SAT 88–100; BMI 31.1
--- NOTE | 2024-12-16 02:20 | PC.RT ---
Bipap & ABG refusal pt wore bipap, two separate times on my shift, for roughly 10 minutes. each time, he removed the mask himself and threw on the floor, refusing to wear any longer. pt no longer compliant to wearing bipap. upon mentioning he had an ABG in the AM, pt stated he would not let us attempt the wrist poke one referencing the radial abg stick. will request vbg to MD instead per pt refusal of ABG.
[2024-12-16] MEDS: ALBUTEROL/IPRATROPIUM (Duoneb) RT SOL 3 ML NEBU INH ×4 (03:42→19:30)
[2024-12-16 05:14] LABS: Base Excess, Venous 21 (-3-3); O2 Saturation, Venous 94 % (96-97); PCO2, Venous 51 mmHg (36-56); PO2, Venous 78 mmHg (15-58); pH, Venous 7.57 (7.33-7.66)
[2024-12-16 05:29] LABS: Basophils % (Auto) 0 % (0-2.5); Eosinophils % (Auto) 0 % (0-10); Hematocrit 36.1 % (41.0-53.0); Hemoglobin 11.8 g/dL (13.5-16.0); Immature Granulocytes % (Auto) 1 % (0-0); Immature Granulocytes Auto 0.05 Thou/mm3 (0.00-0.00); Lymphocytes # (Auto) 1.2 Thou/mm3 (1.0-4.8); Lymphocytes % (Auto) 15 % (10-50); Mean Corpuscular HGB Conc 32.7 g/dl (31.0-37.0); Mean Corpuscular Hemoglobin 31.4 pg (25.0-35.0); Mean Corpuscular Volume 96 fL (80-100); Monocytes # (Auto) 0.7 Thou/mm3 (0.0-0.8); Monocytes % (Auto) 9 % (0-12); Neutrophils # (Auto) 5.8 Thou/mm3 (1.8-7.7); Neutrophils % (Auto) 76 % (37-80); Nucleated Red Blood Cell % 0 /100 WBC (0); Platelet Count 82 Thou/mm3 (140-440); RDW Standard Deviation 50.4 fL (35.1-43.9); Red Blood Count 3.76 Miln/mm3 (4.50-5.90); White Blood Count 7.7 Thou/mm3 (3.8-10.6)
[2024-12-16 06:14] LABS: Alanine Aminotransferase 12 U/L (10-49); Albumin, Serum 3.6 gm/dL (3.4-4.8); Albumin/Globulin Ratio 1.6 (1.2-2.2); Alkaline Phosphatase 43 U/L (46-116); Anion Gap 7 (7-16); Aspartate Amino Transferase 17 U/L (0-34); BUN/Creatinine Ratio 27 Ratio (12-20); Bilirubin,Total 0.4 mg/dL (0.3-1.2); Blood Urea Nitrogen 19 mg/dL (9-23); Calcium 8.9 mg/dL (8.3-10.6); Calcium (Corrected) 9.2 mg/dL (8.5-10.1); Carbon Dioxide 38.5 mMol/L (20.0-31.0); Chloride 92 mMol/L (98-107); Creatinine (Component) 0.7 mg/dL (0.6-1.3); Estimated Creatinine Clearance 132.4 mL/min (>60); Globulin 2.2 gm/dL (2.3-3.5); Glucose 98 mg/dL (74-106); Osmolality,Calculated 276 (275-295); Phosphorous 2.7 mg/dL (2.4-5.1); Sodium 137 mMol/L (136-145); Total Protein 5.8 gm/dL (5.7-8.2); eGFR > 60 See Note
[2024-12-16 06:30] LABS: Folate > 24.00 ng/mL (>5.38)
[2024-12-16] MEDS: FUROSEMIDE INJ 10 MG/ML 4ML VIAL 40 MG IVP (08:25)
[2024-12-16] MEDS: predniSONE 20 MG TABLET 40 MG PO (08:25)
[2024-12-16] MEDS: PANTOPRAZOLE INJ 40 MG VIAL IVP (08:25)
[2024-12-16] MEDS: DAPAGLIFLOZIN PROPANEDIOL 5 MG TABLET 10 MG PO (08:25)
[2024-12-16] MEDS: ENOXAPARIN SOD INJ 40 MG/0.4 ML SYRINGE SC (08:26)
[2024-12-16] MEDS: guaiFENesin ER 600 MG TABCR PO ×2 (10:28→20:28)
--- NOTE | 2024-12-16 13:05 | ESPR_ITS ---
<Statement entered by Vernon Sanderson MD - 12/16/24 15:54> I discussed with and supervised the music intern physician involved in the care of this patient. Patient assessment and plan was discussed with entire medicine team, including my attending. I agree with the assessment and plan as documented by music intern doctor. Patient care was discussed with my attending physician Dr. Gonzales Sanderson, PGY-2 Documentation for date of: 12/16/24 Subjective Subjective Interval history: 12/16/2024: Overnight the patient refused BiPAP and apparently refused ABG drawn this morning. Patient seen and examined in hospital bed on 5 to 6 L of supplemental oxygen through nasal cannula saturating in low 90s. Patient states that he feels much better than when he first presented; however, he is still having productive coughing. Ambulation test with nurse was not successful as the patient desaturated to 80% with the supplemental oxygen. Counseled the patient to wear the BiPAP overnight so that we can recheck ABG in the morning (12/17) and if results are favorable, he may be able to be discharged. Exam Vital Signs Temp Pulse Resp BP Pulse Ox O2 Del Method O2 Flow Rate 99.3 F 90 18 159/69 H 95 Nasal Cannula 6 12/16/24 08:00 12/16/24 08:25 12/16/24 08:11 12/16/24 08:25 12/16/24 08:11 12/16/24 08:00 12/16/24 08:11 FiO2 6 12/16/24 08:11 Narrative Exam Physical Exam: GENERAL: Awake, answering questions appropriately but is short, on 5 L nasal cannula satting 90% HEENT: NC/AT. Moist mucosa. PERRLA/EOMI. CARDIO: Heart RRR, no obvious murmurs, no JVD. PULM: Productive cough. Distant and reduced lung sounds. No wheezing, crackles, rales or rhonci. GI: Abdomen soft, NT/ND, +BS. SKIN/MSK/EXT: No wounds/discoloration/rashes/edema/amputations. +Pedal pulses present B/L. NEURO: Oriented x3, Moves extremities x4 and no focal neurological deficits noted. Objective Labs 12/17/24 05:45 12/17/24 05:45 Labs: Laboratory Results - last 24 hr 02/12/16/24 12/16/24 15:43 05:03 05:05 WBC 7.7 RBC 3.76 L Hgb 11.8 L Hct 36.1 L MCV 96 MCH 31.4 MCHC 32.7 RDW Std Deviation 50.4 H Plt Count 82 L Neut % (Auto) 76 Lymph % (Auto) 15 [place] % (Auto) 9 Eos % (Auto) 0 Baso % (Auto) 0 Neut # (Auto) 5.8 Lymph # (Auto) 1.2 [place] # (Auto) 0.7 Eos # (Auto) 0.0 Baso # (Auto) 0.0 Immature Gran # (Auto) 0.05 H Absolute Nucleated RBC 0.00 Immature Gran % 1 H Nucleated RBC % 0 VBG pH 7.57 VBG pCO2 51 VBG pO2 78 H VBG O2 Sat (Osmin) 94 L VBG Base Excess 21 H Sodium 139 137 Potassium 4.7 D 4.0 D Chloride 90 L 92 L Carbon Dioxide > 40.0 H 38.5 H Anion Gap 9 7 BUN 15 19 Creatinine 0.8 0.7 Estim Creat Clear Calc 115.8 132.4 eGFR > 60 > 60 BUN/Creatinine Ratio 19 27 H Glucose 149 H 98 D Calculated Osmolality 281 276 Calcium 9.1 8.9 Corrected Calcium 9.4 9.2 Phosphorus 2.3 L 2.7 Magnesium 2.0 Total Bilirubin 0.4 AST 17 ALT 12 Alkaline Phosphatase 43 L D Total Protein 5.8 Albumin 3.6 3.6 Globulin 2.2 L Albumin/Globulin Ratio 1.6 Folate > 24.00 ABG Interpretation ABG results: 12/14/24 12/15/24 12/15/24 23:23 01:43 04:55 ABG pH 7.26 L 7.27 L 7.31 L ABG pCO2 122 H* 114 H* 101 H* D ABG pO2 95 48 L* D 62 L ABG HCO3 54 H 53 H 51 H ABG O2 Saturation 95 83 L 91 ABG Base Excess 21 H 21 H 20 H VBG pH VBG pCO2 VBG pO2 VBG Base Excess 12/16/24 05:05 ABG pH ABG pCO2 ABG pO2 ABG HCO3 ABG O2 Saturation ABG Base Excess VBG pH 7.57 VBG pCO2 51 VBG pO2 78 H VBG Base Excess 21 H Quality Measures Quality Measures none Assessment & Plan Assessment Current Active Medications: Generic Name Dose Route Start Last Admin Trade Name Campbellq PRN Reason Stop Dose Admin Acetaminophen 650 mg 12/15/24 00:31 Acetaminophen 325 Mg Tablet PO 01/14/25 00:30 Q6H PRN PAIN SCALE 1-3 (mild Acetaminophen 650 mg 12/15/24 00:31 Acetaminophen 325 Mg Tablet PO 01/14/25 00:30 Q6H PRN Fever >100.4 Albuterol/Ipratropium 3 ml 12/16/24 13:00 Albuterol/Ipratropium (Duoneb) Rt Marita 3 Ml Nebu INH 01/15/25 12:59 Q6HRRT FREDIS Dapagliflozin 10 mg 12/15/24 09:00 12/16/24 08:25 Dapagliflozin Propanediol 5 Mg Tablet PO 01/14/25 08:59 10 mg QAM FREDIS Administration Enoxaparin Sodium 40 mg 12/16/24 09:00 12/16/24 08:26 Enoxaparin Sod Inj 40 Mg/0.4 Ml Syringe SC 12/30/24 08:59 40 mg QDAY FREDIS Administration Furosemide 40 mg 12/16/24 09:00 12/16/24 08:25 Furosemide Inj 10 Mg/Ml 4ml Vial IVP 01/15/25 08:59 40 mg QDAY FREDIS Administration Guaifenesin 600 mg 12/16/24 10:05 12/16/24 10:28 Guaifenesin Er 600 Mg Tabcr PO 01/15/25 10:04 600 mg BID FREDIS Administration Azithromycin 250 mg/ Sodium 250 mls @ 250 mls/hr 12/15/24 21:00 12/15/24 21:08 Chloride IV 12/22/24 20:59 Infused QDAY@2100 FREDIS Infusion Nicotine 14 mg 12/15/24 09:00 12/16/24 08:26 Nicotine Patch 14 Mg/24 Hr Patch.Td24 TOP 01/14/25 08:59 Not Given QDAY FREDIS Ondansetron HCl 4 mg 12/15/24 00:31 Ondansetron Inj 2 Mg/Ml Inj 2 Ml IV 01/14/25 00:30 Q6H PRN NAUSEA OR VOMITING Protocol Pantoprazole Sodium 40 mg 12/15/24 09:00 12/16/24 08:25 Pantoprazole Inj 40 Mg Vial IVP 03/22/25 08:59 40 mg QDAY FREDIS Administration Prednisone 40 mg 12/15/24 09:00 12/16/24 08:25 Prednisone 20 Mg Tablet PO 12/20/24 08:59 40 mg QDAY FREDIS Administration Sennosides 1 tab 12/16/24 09:00 12/16/24 08:26 Senna Tablet PO 01/15/25 08:59 Not Given QDAY FREDIS Protocol Plan 64-year-old male with PMHx of COPD with recurrent exacerbations, on 4 L home oxygen, HFpEF 55-60%, active smoker, A-fib, HTN, HLD, admitted for acute encephalopathy in settings of COPD exacerbation and hypercapnia. #Acute hypercapnic respiratory failure secondary to, #COPD exacerbation #Active smoker #Respiratory acidosis and secondary metabolic alkalosis Encephalopathy most likely secondary to hypercapnia. Previously admitted on 11/23 for similar symptoms, discharged on ANTIBIOTICS, advised to stop smoking. Continue smoking 1 pack daily. Presents with worsening shortness of breath over the last few days. Initial ABG pH 7.26, pCO2 122, bicarb 54, pO2 95 improved to ABG pH 7.31, pCO2 101, pO2 62 and bicarb of 51 on BIPAP Currently satting 90% on 5 L nasal cannula CXR showed hyperinflation, early mild CHF, no pneumonia VBG instead of the ABG showed pH of 7.57, pCO2 51 pO2 of 78 Plan: Continue azithromycin (12/15 to present) Continue prednisone 40 mg daily Continue DuoNebs q.6h. Continue on BiPAP Repeat ABG in the AM, after counseling patient to wear BiPAP overnight #HFpEF 55-60% Last echo from 09/2024 with grade 1 diastolic dysfunction. Low concern for CHF exacerbation, no crackles on lung exam, no lower extremity edema, no JVD, BNP normal Plan: Continue Lasix to 40mg IV qday, will transition to home dose upon discharge Increased dapagliflozin 10 mg Strict I/Os Daily weight Cardiac diet Holding home eplerenone 25 mg when stable #Paroxysmal A-fib #Hypertension #Hyperlipidemia EKG sinus rhythm. HR 80s. Currently normotensive. He was on atorvastatin 40 mg on last admission, however did not discharge on statin No home anticoagulation noted Plan: Consider restarting atorvastatin 40 mg HS #Chronic macrocytic anemia Hgb 12.4, MCV 103, around baseline. No signs or symptoms of active bleed Folate within normal limits Plan: Vit B12 ordered Recommended outpatient follow-up #Tobacco dependency Active smoker with [id number] smoking Plan: Daily nicotine patch Smoking cessation counselled #Hyperkalemia, resolved Secondary to metabolic alkalosis; compensation for COPD Potassium 5.6. Asymptomatic. No T wave abnormalities on EKG. Given calcium gluconate 1 mg x 1 and regular insulin 5 units Patient refused kayexalate 30 mg x 1 Patient receiving Duonebs q4h Plan: Monitor with morning labs Health Management: Lines: PIV Diet: Cardiac Bowel: Senna GI prophylaxis: Not needed DVT prophylaxis: Lovenox Dispo: Treating COPD exacerbation Code: Full Patient seen and examined with attending Dr. Rolon and senior resident Dr. Kin Narayan, PGY-1 Attending Provider Attestation/Addendum Kristina Doshi DO, attest that I was physically present for the malone portions of the service and evaluated the patient with the resident and I reviewed and discussed the case with the resident and agree with the resident's findings and plans of care as documented above Patient seen and evaluated this AM. He states he is doing well and anxious to go home. However, patient continues to have diffuse congestion. Patient desaturated to the 80s on exertion on 4L/NC. Will add mucolytics. Patient states he could not tolerate BiPap overnight. Counselled patient on compliance of Trilogy use at home. Will continue with current management. Anticipate DC within next 24hr
--- NOTE | 2024-12-16 13:52 | PC.SS ---
SS met with patient regarding his d/c plan.? Pt is alert/oriented.? Pt was admitted for SOB.? Pt confirmed demographic and contact information is correct on facesheet.? Pt resides with roommate.? Pt ambulates using a 4 wheel with seat, rollator walker.? Pt states he is ok with all ADLs.? Pt named his son, Daniel Lowe medical decision maker if he is unable.? SS provided verbal d/c options for d/c to home or SNF.? Pt refused SNF.Patient?s choice is to return home upon d/c.? Pt states he uses O2 at home from [facility] and several small O2 tanks for transport.? SS has spoken to Niecy from [facility] who explained they will deliver small O2 tank to bedside.?? D/C plan:? Return home Next of Kin:? Daniel Lowe, son, phone#[phone] PCP:? [facility] Address:? Correct on facesheet
--- NOTE | 2024-12-16 15:04 | PC.SS ---
Follow up note: Repeat labs. Pt will return home upon dc.
[2024-12-16] MEDS: AZITHROMYCIN INJ 250 MG in SODIUM CHLORIDE 0.9% 250 ML 250 ML IV (20:28)
[2024-12-17] VITALS (15 sets, daily range): BP systolic 117–136; BP diastolic 62–80; PULSE 63–89; RESP 12–25; TEMP 36.3–37.3; O2SAT 88–100; BMI 31.1
[2024-12-17] MEDS: ALBUTEROL/IPRATROPIUM (Duoneb) RT SOL 3 ML NEBU INH ×4 (00:40→18:49)
[2024-12-17 06:31] LABS: Basophils % (Auto) 0 % (0-2.5); Eosinophils % (Auto) 0 % (0-10); Hematocrit 36.4 % (41.0-53.0); Hemoglobin 11.6 g/dL (13.5-16.0); Immature Granulocytes % (Auto) 1 % (0-0); Immature Granulocytes Auto 0.08 Thou/mm3 (0.00-0.00); Lymphocytes # (Auto) 1.3 Thou/mm3 (1.0-4.8); Lymphocytes % (Auto) 23 % (10-50); Mean Corpuscular HGB Conc 31.9 g/dl (31.0-37.0); Mean Corpuscular Hemoglobin 30.8 pg (25.0-35.0); Mean Corpuscular Volume 97 fL (80-100); Monocytes # (Auto) 0.4 Thou/mm3 (0.0-0.8); Monocytes % (Auto) 7 % (0-12); Neutrophils # (Auto) 4.1 Thou/mm3 (1.8-7.7); Neutrophils % (Auto) 68 % (37-80); Nucleated Red Blood Cell % 0 /100 WBC (0); Platelet Count 112 Thou/mm3 (140-440); RDW Standard Deviation 51.3 fL (35.1-43.9); Red Blood Count 3.77 Miln/mm3 (4.50-5.90); White Blood Count 5.9 Thou/mm3 (3.8-10.6)
[2024-12-17 07:10] LABS: Alanine Aminotransferase 12 U/L (10-49); Albumin, Serum 3.7 gm/dL (3.4-4.8); Albumin/Globulin Ratio 1.7 (1.2-2.2); Alkaline Phosphatase 43 U/L (46-116); Anion Gap 7 (7-16); Aspartate Amino Transferase 12 U/L (0-34); BUN/Creatinine Ratio 31 Ratio (12-20); Bilirubin,Total 0.4 mg/dL (0.3-1.2); Blood Urea Nitrogen 22 mg/dL (9-23); Calcium 8.9 mg/dL (8.3-10.6); Calcium (Corrected) 9.1 mg/dL (8.5-10.1); Carbon Dioxide > 40.0 mMol/L (20.0-31.0); Chloride 91 mMol/L (98-107); Creatinine (Component) 0.7 mg/dL (0.6-1.3); Estimated Creatinine Clearance 132.9 mL/min (>60); Globulin 2.2 gm/dL (2.3-3.5); Glucose 95 mg/dL (74-106); Magnesium 2.2 mg/dL (1.6-2.6); Osmolality,Calculated 278 (275-295); Phosphorous 3.1 mg/dL (2.4-5.1); Potassium 3.8 mMol/L (3.4-5.1); Sodium 138 mMol/L (136-145); Total Protein 5.9 gm/dL (5.7-8.2); eGFR > 60 See Note
[2024-12-17] MEDS: FUROSEMIDE INJ 10 MG/ML 4ML VIAL 40 MG IVP (08:39)
[2024-12-17] MEDS: SENNA TABLET 1 TAB PO (08:40)
[2024-12-17] MEDS: DAPAGLIFLOZIN PROPANEDIOL 5 MG TABLET 10 MG PO (08:40)
[2024-12-17] MEDS: predniSONE 20 MG TABLET 40 MG PO (08:40)
[2024-12-17] MEDS: ENOXAPARIN SOD INJ 40 MG/0.4 ML SYRINGE SC (08:41)
[2024-12-17] MEDS: guaiFENesin ER 600 MG TABCR PO ×2 (08:41→20:11)
[2024-12-17 09:27] LABS: Base Excess, Venous 19 (-3-3); O2 Saturation, Venous 88 % (96-97); PCO2, Venous 69 mmHg (36-56); PO2, Venous 56 mmHg (15-58); pH, Venous 7.44 (7.33-7.66)
--- NOTE | 2024-12-17 14:57 | PD.RESPRO ---
Documentation for date of: 12/17/24 Subjective Subjective Interval history: Overnight patient was on BiPAP for few hours, and more patient was restarted on BiPAP but refused ABG. ABG indicated pH of 7.44 with pCO2 69 and bicarb of greater than 40. Chest physiotherapy ordered, but later in the day patient declined BiPAP. Patient started on high flow NC and currently 60% FiO2 and 30L flow rate. Exam Vital Signs Temp Pulse Resp BP Pulse Ox O2 Del Method O2 Flow Rate 99.1 F 89 18 117/62 89 L Nasal Cannula 35 12/17/24 12:00 12/17/24 14:00 12/17/24 14:00 12/17/24 12:00 12/17/24 14:00 12/17/24 12:00 12/17/24 14:00 FiO2 100 12/17/24 14:00 Narrative Exam Physical Exam: GENERAL: Awake, answering questions appropriately but is short, on 5 L nasal cannula satting 90% HEENT: NC/AT. Moist mucosa. PERRLA/EOMI. CARDIO: Heart RRR, no obvious murmurs, no JVD. PULM: Productive cough. Distant and reduced lung sounds. No wheezing, crackles, rales or rhonci. GI: Abdomen soft, NT/ND, +BS. SKIN/MSK/EXT: No wounds/discoloration/rashes/edema/amputations. +Pedal pulses present B/L. NEURO: Oriented x3, Moves extremities x4 and no focal neurological deficits noted. Objective Labs 12/18/24 05:08 12/18/24 05:08 Labs: Laboratory Results - last 24 hr 12/17/24 12/17/24 05:45 08:55 WBC 5.9 RBC 3.77 L Hgb 11.6 L Hct 36.4 L MCV 97 MCH 30.8 MCHC 31.9 RDW Std Deviation 51.3 H Plt Count 112 L D Neut % (Auto) 68 Lymph % (Auto) 23 [place] % (Auto) 7 Eos % (Auto) 0 Baso % (Auto) 0 Neut # (Auto) 4.1 Lymph # (Auto) 1.3 [place] # (Auto) 0.4 Eos # (Auto) 0.0 Baso # (Auto) 0.0 Immature Gran # (Auto) 0.08 H Absolute Nucleated RBC 0.00 Immature Gran % 1 H Nucleated RBC % 0 VBG pH 7.44 VBG pCO2 69 H D VBG pO2 56 D VBG O2 Sat (Osmin) 88 L VBG Base Excess 19 H Sodium 138 Potassium 3.8 Chloride 91 L Carbon Dioxide > 40.0 H Anion Gap 7 BUN 22 Creatinine 0.7 Estim Creat Clear Calc 132.9 eGFR > 60 BUN/Creatinine Ratio 31 H Glucose 95 Calculated Osmolality 278 Calcium 8.9 Corrected Calcium 9.1 Phosphorus 3.1 Magnesium 2.2 Total Bilirubin 0.4 AST 12 ALT 12 Alkaline Phosphatase 43 L Total Protein 5.9 Albumin 3.7 Globulin 2.2 L Albumin/Globulin Ratio 1.7 ABG Interpretation ABG results: 12/14/24 12/15/24 12/15/24 23:23 01:43 04:55 ABG pH 7.26 L 7.27 L 7.31 L ABG pCO2 122 H* 114 H* 101 H* D ABG pO2 95 48 L* D 62 L ABG HCO3 54 H 53 H 51 H ABG O2 Saturation 95 83 L 91 ABG Base Excess 21 H 21 H 20 H VBG pH VBG pCO2 VBG pO2 VBG Base Excess 12/16/24 12/17/24 05:05 08:55 ABG pH ABG pCO2 ABG pO2 ABG HCO3 ABG O2 Saturation ABG Base Excess VBG pH 7.57 7.44 VBG pCO2 51 69 H D VBG pO2 78 H 56 D VBG Base Excess 21 H 19 H Quality Measures Quality Measures none Assessment & Plan Assessment Current Active Medications: Generic Name Dose Route Start Last Admin Trade Name Freq PRN Reason Stop Dose Admin Acetaminophen 650 mg 12/15/24 00:31 Acetaminophen 325 Mg Tablet PO 01/14/25 00:30 Q6H PRN PAIN SCALE 1-3 (mild Acetaminophen 650 mg 12/15/24 00:31 Acetaminophen 325 Mg Tablet PO 01/14/25 00:30 Q6H PRN Fever >100.4 Albuterol/Ipratropium 3 ml 12/16/24 13:00 12/17/24 12:40 Albuterol/Ipratropium (Duoneb) Rt Marita 3 Ml Nebu INH 01/15/25 12:59 3 ml Q6HRRT FREDIS Administration Dapagliflozin 10 mg 12/15/24 09:00 12/17/24 08:40 Dapagliflozin Propanediol 5 Mg Tablet PO 01/14/25 08:59 10 mg QAM FREDIS Administration Enoxaparin Sodium 40 mg 12/16/24 09:00 12/17/24 08:41 Enoxaparin Sod Inj 40 Mg/0.4 Ml Syringe SC 12/30/24 08:59 40 mg QDAY FREDIS Administration Furosemide 40 mg 12/16/24 09:00 12/17/24 08:39 Furosemide Inj 10 Mg/Ml 4ml Vial IVP 01/15/25 08:59 40 mg QDAY FREIDS Administration Guaifenesin 600 mg 12/16/24 10:05 12/17/24 08:41 Guaifenesin Er 600 Mg Tabcr PO 01/15/25 10:04 600 mg BID FREDIS Administration Azithromycin 250 mg/ Sodium 250 mls @ 250 mls/hr 12/15/24 21:00 12/16/24 20:28 Chloride IV 12/22/24 20:59 250 mls/hr QDAY@2100 FREDIS Administration Nicotine 14 mg 12/15/24 09:00 12/17/24 08:41 Nicotine Patch 14 Mg/24 Hr Patch.Td24 TOP 01/14/25 08:59 Not Given QDAY FREDIS Ondansetron HCl 4 mg 12/15/24 00:31 Ondansetron Inj 2 Mg/Ml Inj 2 Ml IV 01/14/25 00:30 Q6H PRN NAUSEA OR VOMITING Protocol Prednisone 40 mg 12/15/24 09:00 12/17/24 08:40 Prednisone 20 Mg Tablet PO 12/20/24 08:59 40 mg QDAY FREDIS Administration Sennosides 1 tab 12/16/24 09:00 12/17/24 08:40 Senna Tablet PO 01/15/25 08:59 1 tab QDAY FREDIS Administration Protocol Plan 64-year-old male with PMHx of COPD with recurrent exacerbations, on 4 L home oxygen, HFpEF 55-60%, active smoker, A-fib, HTN, HLD, admitted for acute encephalopathy in settings of COPD exacerbation and hypercapnia. #Acute hypercapnic respiratory failure secondary to, #COPD exacerbation #Active smoker #Respiratory acidosis and secondary metabolic alkalosis Encephalopathy most likely secondary to hypercapnia. Previously admitted on 11/23 for similar symptoms, discharged on ANTIBIOTICS, advised to stop smoking. Continue smoking 1 pack daily. Presents with worsening shortness of breath over the last few days. Initial ABG pH 7.26, pCO2 122, bicarb 54, pO2 95 improved to ABG pH 7.31, pCO2 101, pO2 62 and bicarb of 51 on BIPAP Currently satting 90% on 5 L nasal cannula CXR showed hyperinflation, early mild CHF, no pneumonia VBG instead of the ABG showed pH of 7.57, pCO2 51 pO2 of 78 Plan: Continue azithromycin (12/15 to present) Continue prednisone 40 mg daily Continue DuoNebs q.6h. Continue on BiPAP Repeat ABG in the AM, after counseling patient to wear BiPAP overnight #HFpEF 55-60% Last echo from 09/2024 with grade 1 diastolic dysfunction. Low concern for CHF exacerbation, no crackles on lung exam, no lower extremity edema, no JVD, BNP normal Plan: Continue Lasix to 40mg IV qday, will transition to home dose upon discharge Increased dapagliflozin 10 mg Strict I/Os Daily weight Cardiac diet Holding home eplerenone 25 mg when stable #Paroxysmal A-fib #Hypertension #Hyperlipidemia EKG sinus rhythm. HR 80s. Currently normotensive. He was on atorvastatin 40 mg on last admission, however did not discharge on statin No home anticoagulation noted Plan: Consider restarting atorvastatin 40 mg HS #Chronic macrocytic anemia Hgb 12.4, MCV 103, around baseline. No signs or symptoms of active bleed Folate within normal limits Plan: Vit B12 ordered Recommended outpatient follow-up #Tobacco dependency Active smoker with [id number] smoking Plan: Daily nicotine patch Smoking cessation counselled #Hyperkalemia, resolved Secondary to metabolic alkalosis; compensation for COPD Potassium 5.6. Asymptomatic. No T wave abnormalities on EKG. Given calcium gluconate 1 mg x 1 and regular insulin 5 units Patient refused kayexalate 30 mg x 1 Patient receiving Duonebs q4h Plan: Monitor with morning labs Health Management: Lines: PIV Diet: Cardiac Bowel: Senna GI prophylaxis: Not needed DVT prophylaxis: Lovenox Dispo: Treating COPD exacerbation Code: Full Patient seen and examined with attending Dr. Rolon and senior resident Dr. Kin Narayan, PGY-1 Attending Provider Attestation/Addendum Kristina Doshi, , attest that I was physically present for the malone portions of the service and evaluated the patient with the resident and I reviewed and discussed the case with the resident and agree with the resident's findings and plans of care as documented above Patient seen and evaluated this AM. He is frustrated that he remains in the hospital as he is eager to go home. However, patient had been desaturating on 5L/NC into the 70s. BiPap was replaced for a short period of time. However, patient has been noncompliant with BiPap since he cannot eat. Will replace BiPap with HFNC. He continues to have some bibasilar rhonchi. Continue wtih current management and titrate O2 as tolerated.
--- NOTE | 2024-12-17 15:01 | PC.NURSE ---
MD Sanderson made aware that patient de-saturated down to 74%. Pt previously on Bipap but he removed it himself stating that he will not put the BiPap back on. Pt educated about importance of using BiPap but patient still refusing. RT called for HFNC and he was placed on 35L and 60% FiO2. patient now saturating 94%
--- NOTE | 2024-12-17 15:25 | PC.RT ---
[facility] 35L @65% O2. 1503 SpO2 92%
[2024-12-17] MEDS: AZITHROMYCIN INJ 250 MG in SODIUM CHLORIDE 0.9% 250 ML 250 ML IV (20:11)
[2024-12-18] VITALS (13 sets, daily range): BP systolic 120–135; BP diastolic 63–82; PULSE 60–78; RESP 15–28; TEMP 36.2–37.6; O2SAT 90–100
[2024-12-18] MEDS: ALBUTEROL/IPRATROPIUM (Duoneb) RT SOL 3 ML NEBU INH ×4 (01:06→18:16)
[2024-12-18 05:56] LABS: Basophils % (Auto) 0 % (0-2.5); Eosinophils % (Auto) 0 % (0-10); Hematocrit 38.6 % (41.0-53.0); Hemoglobin 12.3 g/dL (13.5-16.0); Immature Granulocytes % (Auto) 1 % (0-0); Immature Granulocytes Auto 0.07 Thou/mm3 (0.00-0.00); Lymphocytes # (Auto) 1.2 Thou/mm3 (1.0-4.8); Lymphocytes % (Auto) 19 % (10-50); Mean Corpuscular HGB Conc 31.9 g/dl (31.0-37.0); Mean Corpuscular Hemoglobin 30.7 pg (25.0-35.0); Mean Corpuscular Volume 96 fL (80-100); Monocytes # (Auto) 0.5 Thou/mm3 (0.0-0.8); Monocytes % (Auto) 8 % (0-12); Neutrophils # (Auto) 4.9 Thou/mm3 (1.8-7.7); Neutrophils % (Auto) 73 % (37-80); Nucleated Red Blood Cell % 0 /100 WBC (0); Platelet Count 122 Thou/mm3 (140-440); RDW Standard Deviation 50.3 fL (35.1-43.9); Red Blood Count 4.01 Miln/mm3 (4.50-5.90); White Blood Count 6.7 Thou/mm3 (3.8-10.6)
[2024-12-18 06:42] LABS: Alanine Aminotransferase 12 U/L (10-49); Albumin, Serum 3.8 gm/dL (3.4-4.8); Albumin/Globulin Ratio 1.7 (1.2-2.2); Alkaline Phosphatase 44 U/L (46-116); Anion Gap 7 (7-16); Aspartate Amino Transferase 10 U/L (0-34); BUN/Creatinine Ratio 35 Ratio (12-20); Bilirubin,Total 0.5 mg/dL (0.3-1.2); Blood Urea Nitrogen 21 mg/dL (9-23); Calcium 8.9 mg/dL (8.3-10.6); Calcium (Corrected) 9.1 mg/dL (8.5-10.1); Carbon Dioxide > 40.0 mMol/L (20.0-31.0); Chloride 91 mMol/L (98-107); Creatinine (Component) 0.6 mg/dL (0.6-1.3); Estimated Creatinine Clearance 155.7 mL/min (>60); Globulin 2.2 gm/dL (2.3-3.5); Glucose 99 mg/dL (74-106); Magnesium 2.3 mg/dL (1.6-2.6); Osmolality,Calculated 278 (275-295); Phosphorous 2.5 mg/dL (2.4-5.1); Potassium 3.8 mMol/L (3.4-5.1); Sodium 138 mMol/L (136-145); eGFR > 60 See Note
[2024-12-18] MEDS: DAPAGLIFLOZIN PROPANEDIOL 5 MG TABLET 10 MG PO (09:07)
[2024-12-18] MEDS: predniSONE 20 MG TABLET 40 MG PO (09:08)
[2024-12-18] MEDS: guaiFENesin ER 600 MG TABCR PO ×2 (09:08→20:11)
[2024-12-18] MEDS: FUROSEMIDE INJ 10 MG/ML 4ML VIAL 40 MG IVP (09:08)
[2024-12-18] MEDS: ENOXAPARIN SOD INJ 40 MG/0.4 ML SYRINGE SC (09:08)
[2024-12-18] MEDS: SENNA TABLET 1 TAB PO (09:09)
--- NOTE | 2024-12-18 15:31 | PD.RESPRO ---
Documentation for date of: 12/18/24 Subjective Subjective Interval history: No overnight major events. During morning during bedside evaluation patient was hemodynamically stable, slightly tachypneic, and still on high flow with a flow rate of 30/min. Labs are stable compared to previous days labs with no clinically significant changes. Later on the day patient's oxygen requirement has improved significantly, and now patient is on 6 L saturating well. We will continue current medical management and will continue to trend oxygen down to baseline which is 4 L/min, once we reached the goal, patient can be discharged. Exam Vital Signs Temp Pulse Resp BP Pulse Ox O2 Del Method O2 Flow Rate 98.8 F 76 28 H 120/68 92 L High Flow Nasal Cannula 30 12/18/24 12:00 12/18/24 12:45 12/18/24 12:45 12/18/24 12:00 12/18/24 12:45 12/18/24 12:00 12/18/24 12:45 FiO2 40 12/18/24 12:45 Narrative Exam Physical Exam: GENERAL: Awake, answering questions appropriately but is short, on 5 L nasal cannula satting 90% HEENT: NC/AT. Moist mucosa. PERRLA/EOMI. CARDIO: Heart RRR, no obvious murmurs, no JVD. PULM: Productive cough. Distant and reduced lung sounds. No wheezing, crackles, rales or rhonci. GI: Abdomen soft, NT/ND, +BS. SKIN/MSK/EXT: No wounds/discoloration/rashes/edema/amputations. +Pedal pulses present B/L. NEURO: Oriented x3, Moves extremities x4 and no focal neurological deficits noted. Objective Labs 12/18/24 05:08 12/18/24 05:08 Labs: Laboratory Results - last 24 hr 12/18/24 05:08 WBC 6.7 RBC 4.01 L Hgb 12.3 L Hct 38.6 L MCV 96 MCH 30.7 MCHC 31.9 RDW Std Deviation 50.3 H Plt Count 122 L Neut % (Auto) 73 Lymph % (Auto) 19 [place] % (Auto) 8 Eos % (Auto) 0 Baso % (Auto) 0 Neut # (Auto) 4.9 Lymph # (Auto) 1.2 [place] # (Auto) 0.5 Eos # (Auto) 0.0 Baso # (Auto) 0.0 Immature Gran # (Auto) 0.07 H Absolute Nucleated RBC 0.00 Immature Gran % 1 H Nucleated RBC % 0 Sodium 138 Potassium 3.8 Chloride 91 L Carbon Dioxide > 40.0 H Anion Gap 7 BUN 21 Creatinine 0.6 Estim Creat Clear Calc 155.7 eGFR > 60 BUN/Creatinine Ratio 35 H Glucose 99 Calculated Osmolality 278 Calcium 8.9 Corrected Calcium 9.1 Phosphorus 2.5 Magnesium 2.3 Total Bilirubin 0.5 AST 10 ALT 12 Alkaline Phosphatase 44 L Total Protein 6.0 Albumin 3.8 Globulin 2.2 L Albumin/Globulin Ratio 1.7 ABG Interpretation ABG results: 12/14/24 12/15/24 12/15/24 23:23 01:43 04:55 ABG pH 7.26 L 7.27 L 7.31 L ABG pCO2 122 H* 114 H* 101 H* D ABG pO2 95 48 L* D 62 L ABG HCO3 54 H 53 H 51 H ABG O2 Saturation 95 83 L 91 ABG Base Excess 21 H 21 H 20 H VBG pH VBG pCO2 VBG pO2 VBG Base Excess 12/16/24 12/17/24 05:05 08:55 ABG pH ABG pCO2 ABG pO2 ABG HCO3 ABG O2 Saturation ABG Base Excess VBG pH 7.57 7.44 VBG pCO2 51 69 H D VBG pO2 78 H 56 D VBG Base Excess 21 H 19 H Quality Measures Quality Measures none Assessment & Plan Assessment Current Active Medications: Generic Name Dose Route Start Last Admin Trade Name Freq PRN Reason Stop Dose Admin Acetaminophen 650 mg 12/15/24 00:31 Acetaminophen 325 Mg Tablet PO 01/14/25 00:30 Q6H PRN PAIN SCALE 1-3 (mild Acetaminophen 650 mg 12/15/24 00:31 Acetaminophen 325 Mg Tablet PO 01/14/25 00:30 Q6H PRN Fever >100.4 Albuterol/Ipratropium 3 ml 12/16/24 13:00 12/18/24 12:42 Albuterol/Ipratropium (Duoneb) Rt Marita 3 Ml Nebu INH 01/15/25 12:59 3 ml Q6HRRT FREDIS Administration Dapagliflozin 10 mg 12/15/24 09:00 12/18/24 09:07 Dapagliflozin Propanediol 5 Mg Tablet PO 01/14/25 08:59 10 mg QAM FREDIS Administration Enoxaparin Sodium 40 mg 12/16/24 09:00 12/18/24 09:08 Enoxaparin Sod Inj 40 Mg/0.4 Ml Syringe SC 12/30/24 08:59 40 mg QDAY FREDIS Administration Furosemide 40 mg 12/16/24 09:00 12/18/24 09:08 Furosemide Inj 10 Mg/Ml 4ml Vial IVP 01/15/25 08:59 40 mg QDAY FREDIS Administration Guaifenesin 600 mg 12/16/24 10:05 12/18/24 09:08 Guaifenesin Er 600 Mg Tabcr PO 01/15/25 10:04 600 mg BID FREDIS Administration Azithromycin 250 mg/ Sodium 250 mls @ 250 mls/hr 12/15/24 21:00 12/17/24 20:11 Chloride IV 12/22/24 20:59 250 mls/hr QDAY@2100 FREDIS Administration Nicotine 14 mg 12/15/24 09:00 12/18/24 09:09 Nicotine Patch 14 Mg/24 Hr Patch.Td24 TOP 01/14/25 08:59 Not Given QDAY FREDIS Ondansetron HCl 4 mg 12/15/24 00:31 Ondansetron Inj 2 Mg/Ml Inj 2 Ml IV 01/14/25 00:30 Q6H PRN NAUSEA OR VOMITING Protocol Prednisone 40 mg 12/15/24 09:00 12/18/24 09:08 Prednisone 20 Mg Tablet PO 12/20/24 08:59 40 mg QDAY FREDIS Administration Sennosides 1 tab 12/16/24 09:00 12/18/24 09:09 Senna Tablet PO 01/15/25 08:59 1 tab QDAY FREDIS Administration Protocol Plan 64-year-old male with PMHx of COPD with recurrent exacerbations, on 4 L home oxygen, HFpEF 55-60%, active smoker, A-fib, HTN, HLD, admitted for acute encephalopathy in settings of COPD exacerbation and hypercapnia. #Acute hypercapnic respiratory failure secondary to, #COPD exacerbation #Active smoker #Respiratory acidosis and secondary metabolic alkalosis Encephalopathy most likely secondary to hypercapnia. Previously admitted on 11/23 for similar symptoms, discharged on ANTIBIOTICS, advised to stop smoking. Continue smoking 1 pack daily. Presents with worsening shortness of breath over the last few days. Initial ABG pH 7.26, pCO2 122, bicarb 54, pO2 95 improved to ABG pH 7.31, pCO2 101, pO2 62 and bicarb of 51 on BIPAP Currently satting 90% on 5 L nasal cannula CXR showed hyperinflation, early mild CHF, no pneumonia VBG instead of the ABG showed pH of 7.57, pCO2 51 pO2 of 78 Plan: Continue azithromycin (12/15 to present) Continue prednisone 40 mg daily Continue DuoNebs q.6h. Continue on BiPAP Repeat ABG in the AM, after counseling patient to wear BiPAP overnight #HFpEF 55-60% Last echo from 09/2024 with grade 1 diastolic dysfunction. Low concern for CHF exacerbation, no crackles on lung exam, no lower extremity edema, no JVD, BNP normal Plan: Continue Lasix to 40mg IV qday, will transition to home dose upon discharge Increased dapagliflozin 10 mg Strict I/Os Daily weight Cardiac diet Holding home eplerenone 25 mg when stable #Paroxysmal A-fib #Hypertension #Hyperlipidemia EKG sinus rhythm. HR 80s. Currently normotensive. He was on atorvastatin 40 mg on last admission, however did not discharge on statin No home anticoagulation noted Plan: Consider restarting atorvastatin 40 mg HS #Chronic macrocytic anemia Hgb 12.4, MCV 103, around baseline. No signs or symptoms of active bleed Folate within normal limits Plan: Vit B12 ordered Recommended outpatient follow-up #Tobacco dependency Active smoker with [id number] smoking Plan: Daily nicotine patch Smoking cessation counselled #Hyperkalemia, resolved Secondary to metabolic alkalosis; compensation for COPD Potassium 5.6. Asymptomatic. No T wave abnormalities on EKG. Given calcium gluconate 1 mg x 1 and regular insulin 5 units Patient refused kayexalate 30 mg x 1 Patient receiving Duonebs q4h Plan: Monitor with morning labs Health Management: Lines: PIV Diet: Cardiac Bowel: Senna GI prophylaxis: Not needed DVT prophylaxis: Lovenox Dispo: Treating COPD exacerbation Code: Full Mike Doshi MD PGY 3 reviewed and discussed the case with attending physician Dr. Rolon Attending Provider Attestation/Addendum Kristina Doshi, DO, attest that I was physically present for the malone portions of the service and evaluated the patient with the resident and I reviewed and discussed the case with the resident and agree with the resident's findings and plans of care as documented above Patient seen and evaluated this AM. No acute events overnight. Patient remains on HFNC on 30L/min and Fio2 of 40%. Patient continues to complain that he wants to go home with HFNC. However, explained to patient that he is only able to be discharged once on home settings of 4L/NC. Will continue with current management. Patient continues to refuse any masks that cover his face as he wants to be able to eat.
[2024-12-18] MEDS: AZITHROMYCIN INJ 250 MG in SODIUM CHLORIDE 0.9% 250 ML 250 ML IV (20:11)
[2024-12-19] VITALS (14 sets, daily range): BP systolic 117–140; BP diastolic 61–89; PULSE 61–91; RESP 18–25; TEMP 36.2–37.4; O2SAT 92–100; BMI 30.5; BMI 30.4
[2024-12-19] MEDS: ALBUTEROL/IPRATROPIUM (Duoneb) RT SOL 3 ML NEBU INH ×4 (00:09→18:41)
[2024-12-19 03:15] LABS: Vitamin B12 351 pg/mL (211-911)
[2024-12-19 05:39] LABS: Base Excess, Venous 15 (-3-3); O2 Saturation, Venous 91 % (96-97); PCO2, Venous 82 mmHg (36-56); PO2, Venous 73 mmHg (15-58); pH, Venous 7.34 (7.33-7.66)
--- NOTE | 2024-12-19 09:16 | PD.RESPRO ---
Documentation for date of: 12/19/24 Subjective Subjective Interval history: 12/19/2024: No acute overnight events to report. Patient seen and examined in hospital bed on 5 L nasal cannula satting in the low 90s; however, the patient's laboratory findings today show that bicarbonate is severely elevated greater than 40. Patient counseled on importance of using BiPAP and recommendation is that the patient will wear BiPAP overnight and if laboratory findings along with oxygenation status remained stable; moreover, he may be able to be discharged within the next 24 to 48 hours. Patient is agreeable and understands barriers to discharge. Exam Vital Signs Temp Pulse Resp BP Pulse Ox O2 Del Method O2 Flow Rate 97.1 F 63 19 130/68 94 L Nasal Cannula 5 12/19/24 08:00 12/19/24 08:00 12/19/24 08:00 12/19/24 08:00 12/19/24 08:00 12/19/24 08:00 12/19/24 08:00 FiO2 40 12/19/24 04:00 Narrative Exam Physical Exam: GENERAL: Awake, answering questions appropriately but is short, on 5 L nasal cannula satting 90% HEENT: NC/AT. Moist mucosa. PERRLA/EOMI. CARDIO: Heart RRR, no obvious murmurs, no JVD. PULM: Productive cough. Distant and reduced lung sounds. No wheezing, crackles, rales or rhonci. GI: Abdomen soft, NT/ND, +BS. SKIN/MSK/EXT: No wounds/discoloration/rashes/edema/amputations. +Pedal pulses present B/L. NEURO: Oriented x3, Moves extremities x4 and no focal neurological deficits noted. Objective Labs 12/18/24 05:08 12/18/24 05:08 Labs: Laboratory Results - last 24 hr 12/17/24 12/19/24 05:45 05:15 VBG pH 7.34 VBG pCO2 82 H D VBG pO2 73 H VBG O2 Sat (Osmin) 91 L VBG Base Excess 15 H Vitamin B12 351 ABG Interpretation ABG results: 12/14/24 12/15/24 12/15/24 23:23 01:43 04:55 ABG pH 7.26 L 7.27 L 7.31 L ABG pCO2 122 H* 114 H* 101 H* D ABG pO2 95 48 L* D 62 L ABG HCO3 54 H 53 H 51 H ABG O2 Saturation 95 83 L 91 ABG Base Excess 21 H 21 H 20 H VBG pH VBG pCO2 VBG pO2 VBG Base Excess 12/16/24 12/17/24 12/19/24 05:05 08:55 05:15 ABG pH ABG pCO2 ABG pO2 ABG HCO3 ABG O2 Saturation ABG Base Excess VBG pH 7.57 7.44 7.34 VBG pCO2 51 69 H D 82 H D VBG pO2 78 H 56 D 73 H VBG Base Excess 21 H 19 H 15 H Quality Measures Quality Measures none Assessment & Plan Assessment Current Active Medications: Generic Name Dose Route Start Last Admin Trade Name Freq PRN Reason Stop Dose Admin Acetaminophen 650 mg 12/15/24 00:31 Acetaminophen 325 Mg Tablet PO 01/14/25 00:30 Q6H PRN PAIN SCALE 1-3 (mild Acetaminophen 650 mg 12/15/24 00:31 Acetaminophen 325 Mg Tablet PO 01/14/25 00:30 Q6H PRN Fever >100.4 Albuterol/Ipratropium 3 ml 12/16/24 13:00 12/19/24 07:41 Albuterol/Ipratropium (Duoneb) Rt Marita 3 Ml Nebu INH 01/15/25 12:59 3 ml Q6HRRT FREDIS Administration Dapagliflozin 10 mg 12/15/24 09:00 12/18/24 09:07 Dapagliflozin Propanediol 5 Mg Tablet PO 01/14/25 08:59 10 mg QAM FREDIS Administration Enoxaparin Sodium 40 mg 12/16/24 09:00 12/18/24 09:08 Enoxaparin Sod Inj 40 Mg/0.4 Ml Syringe SC 12/30/24 08:59 40 mg QDAY FREDIS Administration Furosemide 40 mg 12/16/24 09:00 12/18/24 09:08 Furosemide Inj 10 Mg/Ml 4ml Vial IVP 01/15/25 08:59 40 mg QDAY FREDIS Administration Guaifenesin 600 mg 12/16/24 10:05 12/18/24 20:11 Guaifenesin Er 600 Mg Tabcr PO 01/15/25 10:04 600 mg BID FREDIS Administration Azithromycin 250 mg/ Sodium 250 mls @ 250 mls/hr 12/15/24 21:00 12/18/24 20:11 Chloride IV 12/22/24 20:59 250 mls/hr QDAY@2100 FREDIS Administration Nicotine 14 mg 12/15/24 09:00 12/18/24 09:09 Nicotine Patch 14 Mg/24 Hr Patch.Td24 TOP 01/14/25 08:59 Not Given QDAY FREDIS Ondansetron HCl 4 mg 12/15/24 00:31 Ondansetron Inj 2 Mg/Ml Inj 2 Ml IV 01/14/25 00:30 Q6H PRN NAUSEA OR VOMITING Protocol Prednisone 40 mg 12/15/24 09:00 12/18/24 09:08 Prednisone 20 Mg Tablet PO 12/20/24 08:59 40 mg QDAY FREDIS Administration Sennosides 1 tab 12/16/24 09:00 12/18/24 09:09 Senna Tablet PO 01/15/25 08:59 1 tab QDAY FREDIS Administration Protocol Plan 64-year-old male with PMHx of COPD with recurrent exacerbations, on 4 L home oxygen, HFpEF 55-60%, active smoker, A-fib, HTN, HLD, admitted for acute encephalopathy in settings of COPD exacerbation and hypercapnia. #Acute hypercapnic respiratory failure secondary to, #COPD exacerbation #Active smoker #Respiratory acidosis and secondary metabolic alkalosis Encephalopathy most likely secondary to hypercapnia. Previously admitted on 11/23 for similar symptoms, discharged on ANTIBIOTICS, advised to stop smoking. Continue smoking 1 pack daily. Presents with worsening shortness of breath over the last few days. Initial ABG pH 7.26, pCO2 122, bicarb 54, pO2 95 improved to ABG pH 7.31, pCO2 101, pO2 62 and bicarb of 51 on BIPAP Currently satting 90% on 5 L nasal cannula CXR showed hyperinflation, early mild CHF, no pneumonia VBG instead of the ABG showed pH of 7.57, pCO2 51 pO2 of 78 12/19/24: Bicarb remains elevated, >40 - will have BIPAP HS and reassess Plan: BIPAP at night Continue azithromycin (12/15 to present) Continue prednisone 40 mg daily Continue DuoNebs q.6h. #Paroxysmal A-fib #Hypertension #Hyperlipidemia [id number] score of at least 2 (hypertension and HFpEF), age is 64 and patient is a smoker (suspicion for vascular disease is high) EKG sinus rhythm. HR 80s. Currently normotensive He was on atorvastatin 40 mg on last admission, however did not discharge on statin On med rec, patient was prescribed Eliquis 5mg po bid in 02/2024 No home anticoagulation noted Plan: Consider restarting atorvastatin 40 mg HS Will discharge of Eliquis if there are no contraindications #HFpEF 55-60% Last echo from 09/2024 with grade 1 diastolic dysfunction. Low concern for CHF exacerbation, no crackles on lung exam, no lower extremity edema, no JVD, BNP normal Plan: Continue Lasix to 40mg IV qday, will transition to home dose upon discharge Increased dapagliflozin 10 mg Strict I/Os Daily weight Cardiac diet Holding home eplerenone 25 mg when stable #Chronic macrocytic anemia Hgb 12.4, MCV 103, around baseline. No signs or symptoms of active bleed Folate within normal limits b12 of 351 Plan: Recommended outpatient follow-up Patient could benefit from hematology referral #Tobacco dependency Active smoker with [id number] smoking Plan: Daily nicotine patch Smoking cessation counselled #Hyperkalemia, resolved Secondary to metabolic alkalosis; compensation for COPD Potassium 5.6. Asymptomatic. No T wave abnormalities on EKG. Given calcium gluconate 1 mg x 1 and regular insulin 5 units Patient refused kayexalate 30 mg x 1 Patient receiving Duonebs q4h Plan: Monitor with morning labs Health Management: Lines: PIV Diet: Cardiac Bowel: Senna GI prophylaxis: Not needed DVT prophylaxis: Lovenox Dispo: Treating COPD exacerbation Code: Full Patient seen and examined with attending Dr. Gonzales Narayan, PGY-1 Attending Provider Attestation/Addendum Kristina Doshi DO, attest that I was physically present for the malone portions of the service and evaluated the patient with the resident and I reviewed and discussed the case with the resident and agree with the resident's findings and plans of care as documented above Patient seen and evaluated this AM. CO2 uptrending on ABG as patient has been refusing to wear the BiPap mask. Explained to patient that he will have to be compliant with BiPap mask, otherwise he will again be confused and lethargic similar to presentation. Explained to patient that his lack of compliance is the result of his frequent readmissions. Patient demonstrated understanding and stated that he is willing to wear the BiPap mask at night after dinner time. He states that he was told if her wears his mask occasionally at home, he will get better. Emphasized to patient that he will need to wear it every night to avoid recurrence/ readmission. If patient remains stable and compliant with BiPap mask overnight, anticipate DC in AM.
[2024-12-19] MEDS: predniSONE 20 MG TABLET 40 MG PO (09:17)
[2024-12-19] MEDS: SENNA TABLET 1 TAB PO (09:17)
[2024-12-19] MEDS: FUROSEMIDE INJ 10 MG/ML 4ML VIAL 40 MG IVP (09:18)
[2024-12-19] MEDS: ENOXAPARIN SOD INJ 40 MG/0.4 ML SYRINGE SC (09:18)
[2024-12-19] MEDS: DAPAGLIFLOZIN PROPANEDIOL 5 MG TABLET 10 MG PO (09:18)
[2024-12-19] MEDS: guaiFENesin ER 600 MG TABCR PO ×2 (09:18→20:01)
--- NOTE | 2024-12-19 09:57 | PC.SS ---
Update: Patient utilizing BI-PAP. Plan is to d/c the patient home tomorrow.
[2024-12-19] MEDS: AZITHROMYCIN 250 MG TABLET PO (20:01)
[2024-12-20] VITALS (9 sets, daily range): BP systolic 116–133; BP diastolic 52–73; PULSE 58–90; RESP 15–21; TEMP 36.3–37.1; O2SAT 91–99; BMI 29.3
[2024-12-20] MEDS: ALBUTEROL/IPRATROPIUM (Duoneb) RT SOL 3 ML NEBU INH ×3 (00:18→13:17)
[2024-12-20] MEDS: FUROSEMIDE INJ 10 MG/ML 4ML VIAL 40 MG IVP (08:14)
[2024-12-20] MEDS: ENOXAPARIN SOD INJ 40 MG/0.4 ML SYRINGE SC (08:15)
[2024-12-20] MEDS: guaiFENesin ER 600 MG TABCR PO (08:15)
[2024-12-20] MEDS: SENNA TABLET 1 TAB PO (08:15)
[2024-12-20] MEDS: DAPAGLIFLOZIN PROPANEDIOL 5 MG TABLET 10 MG PO (08:16)
[2024-12-20 08:57] LABS: Basophils % (Auto) 0 % (0-2.5); Eosinophils % (Auto) 0 % (0-10); Hemoglobin 13.8 g/dL (13.5-16.0); Immature Granulocytes % (Auto) 2 % (0-0); Immature Granulocytes Auto 0.12 Thou/mm3 (0.00-0.00); Lymphocytes # (Auto) 1.5 Thou/mm3 (1.0-4.8); Lymphocytes % (Auto) 20 % (10-50); Mean Corpuscular HGB Conc 32.1 g/dl (31.0-37.0); Mean Corpuscular Hemoglobin 30.6 pg (25.0-35.0); Mean Corpuscular Volume 95 fL (80-100); Monocytes # (Auto) 0.4 Thou/mm3 (0.0-0.8); Monocytes % (Auto) 5 % (0-12); Neutrophils # (Auto) 5.4 Thou/mm3 (1.8-7.7); Neutrophils % (Auto) 73 % (37-80); Nucleated Red Blood Cell % 0 /100 WBC (0); Platelet Count 147 Thou/mm3 (140-440); RDW Standard Deviation 49.9 fL (35.1-43.9); Red Blood Count 4.51 Miln/mm3 (4.50-5.90); White Blood Count 7.4 Thou/mm3 (3.8-10.6)
[2024-12-20 09:42] LABS: Alanine Aminotransferase 14 U/L (10-49); Albumin, Serum 4.3 gm/dL (3.4-4.8); Alkaline Phosphatase 54 U/L (46-116); Anion Gap 6 (7-16); Aspartate Amino Transferase < 8 U/L (0-34); BUN/Creatinine Ratio 33 Ratio (12-20); Bilirubin,Total 0.4 mg/dL (0.3-1.2); Blood Urea Nitrogen 26 mg/dL (9-23); Calcium 9.2 mg/dL (8.3-10.6); Calcium (Corrected) 9.2 mg/dL (8.5-10.1); Carbon Dioxide > 40.0 mMol/L (20.0-31.0); Chloride 90 mMol/L (98-107); Creatinine (Component) 0.8 mg/dL (0.6-1.3); Estimated Creatinine Clearance 113.3 mL/min (>60); Globulin 2.2 gm/dL (2.3-3.5); Glucose 158 mg/dL (74-106); Osmolality,Calculated 279 (275-295); Potassium 3.9 mMol/L (3.4-5.1); Sodium 136 mMol/L (136-145); Total Protein 6.5 gm/dL (5.7-8.2); eGFR > 60 See Note
--- NOTE | 2024-12-20 13:06 | PC.SS ---
SS met with pt at bedside, provided pt with clothing as requested. SS noted O2 tank at BS. Pt is ready to DC home, no further needs identified.
--- NOTE | 2024-12-20 13:53 | PC.NURSE ---
PATIENT AMBULATED IN HALLWAY WITH OXYGEN 4L, PATIENT OXYGEN SATURATIONS TO 83% WHILE ON OXYGEN 4L. PATIENT OXYGEN SATURATION 93% ON 4L AT REST. PATIENT STATES HE DOES NOT WALK MUCH AT HOME AND USES HIS WHEELCHAIR. PATIENT STATES HE FEELS BETTER, FEELS READY TO GO HOME. DR. MONTEIRO MADE AWARE.
--- NOTE | 2024-12-20 13:58 | ESDS_ITS ---
<Statement entered by Kristina Rolon DO - 12/23/24 14:32> I, Kristina Rolon DO, attest that I was physically present for the malone portions of the service and evaluated the patient with the resident and I reviewed and discussed the case with the resident and agree with the resident's findings and plans of care as documented above <Statement entered by Vernon Sanderson MD - 12/21/24 05:59> I discussed with and supervised the consultant internship physician involved in the care of this patient. Patient assessment and plan was discussed with entire medicine team, including my attending. I agree with the assessment and plan as documented by consultant internship doctor. Patient care was discussed with my attending physician Dr. Gonzales Sanderson, PGY-2 Planned Discharge Date 12/20/24 DS: Providers Provider Date of admission: 12/15/24 00:31 Primary care physician: Nickolas Jones MD Admitting Provider: David Scott MD Attending Provider on Admission: Kristina Rolon DO Consults: 12/15/24 04:45 Referral Wound Care Stat Comment: shalonda lower extremities/ R great toe wound Attending Provider on DC: Segun Narayan MD Discharging Provider: Segun Narayan MD DS: Diagnosis Problem List Completed Was Problem List Reviewed/Reconciled?: Yes Hospital Course Hospital Course Hospital course: 64-year-old male with past medical history of COPD with recurrent exacerbations, HFpEF 55 to 60%, on 4 L of oxygen, paroxysmal atrial fibrillation, hypertension, hyperlipidemia presenting to the hospital with acute shortness of breath and acute hypercapnic respiratory failure secondary to COPD exacerbation. Patient was started on BiPAP and admitted to the hospital. During admission, patient was found to also have hyperkalemia but refused taking Kayexalate, patient was treated IV antibiotics, DuoNebs and monitored with frequent ABG/VBG and labs. Throughout hospitaliziation patient refused on/off using BIPAP; eventually patient was able to be conviced and symptoms improved. Patient was transitioned to baseline nasal cannuli and was satting at 88-90 at rest. Patient also has noted afib on chart but denies taking Eliquis which was last prescribed sometime in February 2024. Patient will be discharged progressing back to baseline with the following strict instructions. Counselled patient on compliance and nightly use of home BiPap to avoid frequent readmissions. However, patient has been noncompliant due to discomfort of mask. Complete Medrol Tae as instructed. Continue using Trelegy for COPD and use albuterol as needed as a rescue inhaler Please take dapagliflozin 10mg for diastolic dysfunction and continue furosemide 40mg as a diuretic Please follow-up with your PCP within 1-2 weeks; you could benefit from a pulmonology referral If your develop new or worsening shortness of breath, chest pain, dizziness or fever/chills - please come back to the ED immediately Hospital Diagnosis: #Acute hypercapnic respiratory failure secondary to, #Acute COPD exacerbation #Chronic tobacco use #Respiratory acidosis and secondary metabolic alkalosis #Noncompliance #Paroxysmal A-fib #Hypertension #Hyperlipidemia #HFpEF 55-60% #Chronic macrocytic anemia #Tobacco dependency #Hyperkalemia, resolved Segun Narayan, PGY-1 Status at Discharge Overall status at discharge: patient is progressing back to baseline Time Spent with Patient Time attestation: Total time spent providing and/or coordinating discharge services: 45 minutes Time spent: Greater than 30 minutes Exam Vital Signs Temp Pulse Resp BP Pulse Ox O2 Del Method O2 Flow Rate 97.4 F 79 18 133/66 H 94 L BiPAP 4 12/20/24 12:00 12/20/24 13:18 12/20/24 13:18 12/20/24 12:00 12/20/24 13:18 12/20/24 12:00 12/20/24 13:18 FiO2 50 12/20/24 12:00 Narrative Exam Physical Exam: GENERAL: Awake, answering questions appropriately but is short, on 4 L nasal cannula satting 88-90% HEENT: NC/AT. Moist mucosa. PERRLA/EOMI. CARDIO: Heart RRR, no obvious murmurs, no JVD. PULM: Productive cough. Distant and reduced lung sounds. No wheezing, crackles, rales or rhonci. GI: Abdomen soft, NT/ND, +BS. SKIN/MSK/EXT: No wounds/discoloration/rashes/edema/amputations. +Pedal pulses present B/L. NEURO: Oriented x3, Moves extremities x4 and no focal neurological deficits noted. Discharge Plan Plan Patient Disposition: HOME (Self Care) Patient condition on transfer: Stable Care Plan Goals: Complete Medrol Tae as instructed. Continue using Trelegy for COPD and use albuterol as needed as a rescue inhaler Please take dapagliflozin 10mg for diastolic dysfunction and continue furosemide 40mg as a diuretic Please follow-up with your PCP within 1-2 weeks; you could benefit from a pulmonology referral If your develop new or worsening shortness of breath, chest pain, dizziness or fever/chills - please come back to the ED immediately Prescriptions/Referrals Prescriptions/Med Rec: New dapagliflozin propanediol 5 mg Tablet 10 mg PO QAM 30 Days Qty: 60 0RF methylprednisolone [Medrol (Tae)] 4 mg tablets,dose pack 4 mg PO QAM Qty: 21 0RF Rx Instructions: As for package instructions Continued albuterol sulfate 90 mcg/actuation aerosol powdr breath activated 2 inh inhalation Q6H PRN (Reason: shortness of breath or wheezing) Qty: 1 3RF furosemide 40 mg tablet 40 mg PO BID Patient Comments: TAKE ONE TABLET BY MOUTH TWICE DAILY A DIURETIC Trelegy Ellipta 200-62.5-25 mcg blister with device 1 inh inhalation Q24H Qty: 60 0RF Discontinued eplerenone 25 mg tablet 25 mg PO QAM Patient Comments: TAKE ONE TABLET BY MOUTH EVERY MORNING A DIURETIC dapagliflozin propanediol [Farxiga] 5 mg tablet 5 mg PO QAM Patient Comments: TAKE ONE TABLET BY MOUTH EVERY MORNING FOR DIABETES Referrals: Nickolas Jones MD [Primary Care Provider] - Patient/Caregiver Discharge Instructions Education Materials: COPD: Chronic Coughing, Using Oxygen Safely, Chronic Lung Disease Quit Smoking, Discharge Instructions: COPD, COPD: Using Inhalers Print Language: Slovak Stand Alone Forms: [facility] Award Info., Patient Portal Info Letter Discharge Order Discharge Orders: Discharge (Routine); Ordered 12/20/24 Ordered By: Segun Narayan Quality Discharge Quality Measures VTE prophylaxis
== END 2024-12-20 14:45 | disposition home or self-care (01) | DRG 190 ==
LOC: SERX 12-15 00:34 → SERHOLD 12-15 00:49 → S2NX 12-15 03:26
PROVIDERS: Internal Medicine; Admitting Provider Internal Medicine; Emergency Provider Emergency Medicine; PCP Family Medicine; Visit Provider Internal Medicine
DX: J44.1 Chronic obstructive pulmonary disease with (acute) exacerbation (principal); J96.01 Acute respiratory failure with hypoxia; J96.02 Acute respiratory failure with hypercapnia; G93.49 Other encephalopathy; I50.32 Chronic diastolic (congestive) heart failure; E87.4 Mixed disorder of acid-base balance; I11.0 Hypertensive heart disease with heart failure; E78.5 Hyperlipidemia, unspecified; J44.0 Chronic obstructive pulmonary disease with (acute) lower respiratory infection; I48.0 Paroxysmal atrial fibrillation; F17.210 Nicotine dependence, cigarettes, uncomplicated; D53.9 Nutritional anemia, unspecified; E87.5 Hyperkalemia; Z91.199 Patient's noncompliance with other medical treatment and regimen due to unspecified reason; Z53.29 Procedure and treatment not carried out because of patient's decision for other reasons; Z79.899 Other long term (current) drug therapy; Z53.20 Procedure and treatment not carried out because of patient's decision for unspecified reasons; Z87.01 Personal history of pneumonia (recurrent)
CPT/HCPCS: 36415; 36600; 71045; 80053; 80069; 82607; 82746; 82803; 83735; 83880; 84100; 84484; 85025; 87081; 87811; 93005; 94640; 94660; 96360; 96365; 96375; 99291; A9270; J0456; J0612; J1650; J1815; J1940; J2470; J2919; J7040; J7050; J7512; J8499

== ENCOUNTER 2024-12-28 08:45 | Inpatient (IN) | payer MEDICARE, MEDICAID, SELFPAY ==
[2024-12-28] VITALS (16 sets, daily range): BP systolic 132–173; BP diastolic 67–86; PULSE 69–113; RESP 12–28; TEMP 35.9–37.2; O2SAT 90–99
--- NOTE | 2024-12-28 09:09 | PD.EDSOB ---
ED SOB =RME/HPI General Chief Complaint: Altered Mental Status Stated Complaint: AMS Time Seen by Provider: 12/28/24 08:57 Arrival date/time: 12/28/24 08:45 RME / HPI RME / HPI Narrative: DR. NUNEZ MAIN ED EVALUATION: This section includes all my notes and documentations, including HPI, PE, and ED course.? Rohit Nunez MD HPI: 64 year old male with past medical history significant for COPD presents to the Emergency Department [facility] from home with complaints of altered mental status (per family) and shortness of breath. When patient placed on oxygen became alert. Patient normally on home oxygen, 2 L/min. Patient reports coughing more than the usual. He reports greenish productive cough and shortness of breath onset 2 weeks. Nebulizer at home. Denies any fall, injury, fevers or chills. No other complaints reported. ROS: All negative except as documented in HPI. Physical Exam: General: Lethargic. In moderate respiratory distress. Eyes:? Conjunctivae and lids clear. ENT:? No nasal congestion.? ? Neck:? Supple. No carotid bruit. No JVD. Heart:? RRR. Lungs:? In respiratory distress. Poor air movement.? There are wheezing and rales noted. Abdomen:? Soft and nontender.? Legs:? No clubbing, cyanosis, edema. Skin:? Warm and dry.? Neuro:? Oriented X 3.? Cranial nerves II to XII grossly normal. No peripheral motor deficits. I reviewed all diagnostic test results. My interpretation of the EKG is?Sinus tachycardia (106 bpm) with PACs and nonspecific ST-T changes. My interpretation of the chest x-ray is infiltrates. My review of the head CT report is?no acute findings. My review of the chest/abdomen/pelvis CT report is pneumonia. Blood tests and urine tests remarkable for D-dimer 759, negative troponin, BNP 62, and UTI. COVID/influenza negative. ABG showed pH 7.29, pCO2 109, and pHCO3 53. At this point, diagnoses include acute respiratory failure, COPD exacerbation, pneumonia, and UTI. Treatment here included Albuterol/Ipratropium 3 ml INH, Ceftriaxone Sodium 1,000 mg IV, Methylprednisolone Sodium Succinate 125 mg IVP, and Zithromax 500 mg IV. Significant improvement not noted. BiPAP initiated. I discussed the case with our hospitalist.? About the presentation and exam and diagnostics and treatments here.? And need of further care in the hospital. Will accept the patient. Rohit Nunez MD Related Data Home Medications ?Medication ?Instructions ?Recorded ?Confirmed furosemide 40 mg tablet 40 mg PO BID 11/08/24 12/16/24 Previous Rx's ?Medication ?Instructions ?Recorded albuterol sulfate 90 mcg/actuation 2 inh inhalation Q6H PRN shortness 09/20/24 breath activated powder inhaler of breath or wheezing #1 ea fluticasone fur. 200 mcg-umeclid 1 inh inhalation Q24H #60 ea 11/10/24 62.5 mcg-vilant 25 mcg inhalat.powder (Trelegy Ellipta) dapagliflozin propanediol 5 mg 10 mg (2 x 5 mg) PO QAM 1 month 12/20/24 tablet #60 tabs methylprednisolone 4 mg tablets in 4 mg PO QAM #21 tabs 12/20/24 a dose pack (Medrol (Agus)) Allergies Allergy/AdvReac Type Severity Reaction Status Date / Time No Known Allergies Allergy Verified 12/14/24 22:54 Course Quality Measures none Orders Category Date Time Status Bedside COVID-19 Antigen Test NOW Care 12/28/24 09:11 Active Bedside Influenza A&B Antigen Test NOW Care 12/28/24 09:11 Completed COVID-19 Screening Questionnaire NOW Care 12/28/24 14:[address] Screening NOW Care 12/28/24 09:11 Active Decision to Admit X1 Care 12/28/24 14:44 Active EKG (ED ONLY) *Do not use* NOW Care 12/28/24 09:11 Completed Saline [Insert IV] NOW Care 12/28/24 09:[address] abdomen pelvis w con Stat Exams 12/28/24 09:[address] angio chest Stat Exams 12/28/24 09:[address] head/brain wo con Stat Exams 12/28/24 09:11 Completed EKG (ED Only) Stat Exams 12/28/24 09:11 Ordered XR chest 1V portable Stat Exams 12/28/24 09:11 Ordered ABG [Arterial Blood Gas] Stat Lab 12/28/24 09:33 Completed Ammonia Stat Lab 12/28/24 09:28 Completed BNP [B-Type Natriuretic Peptide] Stat Lab 12/28/24 09:28 Completed Blood Culture (Lab) Stat Lab 12/28/24 09:28 Received CBC Stat Lab 12/28/24 09:28 Completed CMP [Comprehensive Metabolic Panel] Stat Lab 12/28/24 09:28 Completed CRP [C-Reactive Protein] Stat Lab 12/28/24 09:28 Completed D-Dimer Stat Lab 12/28/24 09:28 Completed ESR [Sed Rate (ESR)] Stat Lab 12/28/24 09:28 Completed Free T4 (Free Thyroxine) Stat Lab 12/28/24 09:28 Completed Lactate (Lactic Acid) Stat Lab 12/28/24 09:28 Completed Magnesium Stat Lab 12/28/24 09:28 Completed PT [Prothrombin Time with INR] Stat Lab 12/28/24 09:28 Completed PTT [Partial Thromboplastin Time] Stat Lab 12/28/24 09:28 Completed Procalcitonin Stat Lab 12/28/24 09:28 Completed RSV [Respiratory Syncytial Virus Ag] Stat Lab 12/28/24 09:12 Ordered TSH [Thyroid Stimulating Hormone] Stat Lab 12/28/24 09:28 Completed Troponin I Stat Lab 12/28/24 09:28 Completed UA, C/S IF [Urinalysis, C/S if Indicated] Stat Lab 12/28/24 09:54 Completed Urine Culture Stat Lab 12/28/24 09:54 Received Albuterol/Ipratr Rt Marita [Duoneb Rt Marita] Med 12/28/24 09:10 Discontinued 3 ml INH X1 ONE Azithromycin Inj [Zithromax Inj] 500 mg Med 12/28/24 11:38 Discontinued Sodium Chloride 0.9% 250 ml [Ns] 250 ml IV X1 MethylPREDNISolone.* [SoluMEDROL Inj] Med 12/28/24 09:10 Discontinued 125 mg IVP X1 ONE cefTRIAXone [Rocephin] 1,000 mg Med 12/28/24 09:10 Discontinued SODIUM CHLORIDE 0.9% (Popper) [Ns 0.9% (P)] 50 ml IV X1 BiPAP / CPAP NOW RT 12/28/24 09:49 Active Vital Signs Vital signs: Vital Signs Temperature 98.3 F 12/28/24 08:48 Pulse Rate 86 12/28/24 08:48 Respiratory Rate 19 12/28/24 08:48 Blood Pressure 173/67 H 12/28/24 08:48 Pulse Oximetry (%) 98 12/28/24 08:48 Shortness of Breath / Dyspnea MDM Narrative MDM Narrative:: ICarole am scribing for and in the presence of Dr. Nunez. Patient data External records reviewed:: [facility] previous records (Reviewed last admission discharge dated 12/20/24, patient admitted for the following: COPD exacerbation) and EMS form Clinical information provided by:: patient and EMS Social determinants that could affect healthcare access:: other (specify) (cigarettes' smoker) Patient has the following chronic illnesses:: COPD How is presenting disease/condition affected by chronic disease/condition?: exacerbated by Evaluation data The following diagnostics were reviewed and interpreted by me:: lab results, radiology exam(s) and EKG tracing(s) (My interpretation of the EKG is: Sinus tachycardia (106 bpm) with PACs and nonspecific ST-T changes. Rohit Nunez MD) Lab and/or radiology exams considered but not ordered:: none Interpretation Summary: Respiratory failure, COPD exacerbation, pneumonia, UTI Medications / Prescriptions Medications or Prescriptions considered but not ordered:: none Medication administrations:: Medication Administration History Discontinued Medications Albuterol/Ipratropium (Albuterol/Ipratropium (Duoneb) Rt Marita 3 Ml Nebu) 3 ml INH X1 ONE Stop: 12/28/24 09:11 Last Admin: 12/28/24 09:26 Dose: 3 ml Documented By: FLAKITA Ceftriaxone Sodium 1,000 mg/ (Sodium Chloride) 50 mls @ 100 mls/hr IV X1 ONE Stop: 12/28/24 09:39 Last Infusion: 12/28/24 10:28 Dose: Infused Documented By: Admin: 12/28/24 09:58 Dose: 100 mls/hr Documented By: SHY Azithromycin 500 mg/ Sodium (Chloride) 250 mls @ 250 mls/hr IV X1 ONE Stop: 12/28/24 12:37 Last Infusion: 12/28/24 14:00 Dose: Infused Documented By: Admin: 12/28/24 12:38 Dose: 250 mls/hr Documented By: AVM Methylprednisolone Sodium Succinate (Methylprednisolone Sod Succ 62.5 Mg/Ml 2ml Vial) 125 mg IVP X1 ONE Stop: 12/28/24 09:11 Last Admin: 12/28/24 09:53 Dose: 125 mg Documented By: AVM Albuterol/Ipratropium 3 ml INH, Ceftriaxone Sodium 1,000 mg IV, Methylprednisolone Sodium Succinate 125 mg IVP, Zithromax 500 mg IV, BiPAP. Consultations Consultation(s) initiated? (list below): No Diagnosis Shortness of Breath Differential Diagnosis: acute exacerbation of chronic obstructive airways disease, congestive heart failure, community acquired pneumonia, asthma with exacerbation, pulmonary embolism and other (COVID, influenza) Most likely diagnosis given after review of the tests above:: Respiratory failure, pneumonia, UTI, COPD exacerbation Admission Indicated Admission indicated?: indicated Explain why admission is indicated or not indicated:: Respiratory failure, pneumonia, UTI, COPD exacerbation Admission Request Was there a request for admission?: Yes Admission Attestation Admission request attestation: Discussed case with Hospitalist service regarding admission. Discussed patients ED course, exam findings, labs, and radiology results. The Hospitalist [agrees] to accept the patient for admission. Disposition Plan Disposition Plan: Admit Critical Care Time Critical Care Time Critical Care Time: Yes Total Critical Care Time (min.): 36 Attestation: Due to a high probability of clinically significant, life threatening deterioration, the patient required my highest level of preparedness to intervene emergently and I personally spent this critical care time directly and personally managing the patient. This critical care time included obtaining a history; examining the patient; ordering and review of studies; arranging urgent treatment with development of a management plan; evaluation of patient's response to treatment; frequent reassessment; and discussions with family and other providers. It was exclusive of separately billable procedures and treating other patients and teaching time. Rohit Nunez MD Discharge Plan Plan Patient Disposition: Admit Acute Care w/in Hospital Prescriptions/Referrals Prescriptions/Med Rec: No Action dapagliflozin propanediol 5 mg Tablet 10 mg PO QAM 30 Days Qty: 60 0RF methylprednisolone [Medrol (Agus)] 4 mg tablets,dose pack 4 mg PO QAM Qty: 21 0RF Rx Instructions: As for package instructions albuterol sulfate 90 mcg/actuation aerosol powdr breath activated 2 inh inhalation Q6H PRN (Reason: shortness of breath or wheezing) Qty: 1 3RF furosemide 40 mg tablet 40 mg PO BID Patient Comments: TAKE ONE TABLET BY MOUTH TWICE DAILY A DIURETIC Trelegy Ellipta 200-62.5-25 mcg blister with device 1 inh inhalation Q24H Qty: 60 0RF Referrals: No Primary/Family,Physician [Primary Care Provider] - In 1 week Problem List Clinical Impression: Acute respiratory failure with hypoxia and hypercapnia, Pneumonia, COPD exacerbation, UTI (urinary tract infection) Patient/Caregiver Discharge Instructions Print Language: Moroccan Stand Alone Forms: [facility] Award Info., Patient Portal Info Letter
--- NOTE | 2024-12-28 09:11 | XR_ITS ---
Examination: CT abdomen with intravenous contrast CT pelvis with intravenous contrast 2-D coronal reconstructions 2-D sagittal reconstructions Date and time of exam:December 28, 2024 11:40 AM INDICATIONS: Onset abdominal pain today. CTDI: vol (mGy) 23.2 DLP: (mGycm) 1424 Technique: Multiple axial sections of the abdomen and pelvis have been obtained. 64 slice high-resolution scanner used. 3 mm axial sections have been obtained, post intravenous injection 100 cc Isovue-370 2-D sagittal, coronal reconstructions obtained. Low dose protocols were performed. One or more of the following dose reduction techniques were used; automated exposure control, adjustment of the mA and/or KV according to patient size, use of iterative reconstruction technique. Findings: Pneumonia left base with left pleural effusion No focal liver or splenic lesions No gallstones No pancreatic or adrenal mass No renal or ureteral calculi Aorta normal size No bowel obstruction Normal appendix No diverticulitis 10 mm fat-containing umbilical hernia Abundant stool in the rectosigmoid Mild thickening urinary bladder wall up to 3.5 mm Transverse prostate dimension 4.2 cm Moderate osteopenia Deformity with radiolucencies in the left femoral head suspicious for avascular necrosis IMPRESSION: Pneumonia left base with left pleural effusion No renal or ureteral calculi, no hydronephrosis Normal appendix Small fat-containing umbilical hernia Mild thickening of the urinary bladder wall up to 3.5 mm, consider cystitis Suspicious for avascular necrosis left femoral head
--- NOTE | 2024-12-28 09:11 | XR_ITS ---
Examination: CT brain head without contrast. 2-D sagittal coronal reconstructions Date and time of exam:December 28, 2024 1139 hours INDICATIONS: Onset altered mental status today CTDI: vol (mGy):53.1 DLP: (mGycm):1118 Technique: Multiple CT axial sections of the brain have been obtained, 5 mm slice thickness. Contrast has not been administered. 2-D sagittal, coronal reconstructions have been obtained Low dose protocols were performed. One or more of the following dose reduction techniques were used; automated exposure control, adjustment of the mA and/or KV according to patient size, use of iterative reconstruction technique. Findings: No significant ventricular enlargement. Intra-axial or extra-axial hemorrhage density is not seen. No mass effect or midline shift Basal cisterns are not remarkable. Fourth ventricle is midline. Cranial vault intact. Significant chronic pansinusitis Impression: Negative for acute hemorrhage, mass effect or midline shift If symptoms persist, consider brain MRI follow-up, stroke protocol
--- NOTE | 2024-12-28 09:11 | XR_ITS ---
Examination: CTA chest with intravenous contrast 2-D reconstructions 3-D reconstructions, vascular Date and time of exam: December 28, 2024 1140 hours Comparison November 21, 2024 INDICATIONS: Shortness of breath today CTDI: vol (mGy) 18.8 DLP: (mGycm) 667 Technique: Multiple axial sections of the thorax have been obtained. 3 mm slice thickness, from below the hemidiaphragms to above the apices of the lungs. Mediastinal and lung density settings have been obtained. 2-D sagittal and coronal reconstructions. 3-D angiographic renderings, 3-D volume renderings, 3D post processing, vascular maximum intensity projections obtained. Contrast administered is 100 cc Isovue-370 intravenous. Low dose protocols were performed. One or more of the following dose reduction techniques were used; automated exposure control, adjustment of the mA and/or KV according to patient size, use of iterative reconstruction technique. Findings: No thoracic aortic aneurysmal dilatation No pulmonary artery filling defects Heavy calcification left anterior descending coronary artery Mild enlargement cardiac contour Pneumonia left base with small left pleural effusion Moderate osteopenia IMPRESSION: Negative for pulmonary artery emboli Heavy calcification left anterior descending coronary artery Pneumonia left base with small left pleural effusion
--- NOTE | 2024-12-28 09:11 | XR_ITS ---
Examination: AP chest single view TECHNIQUE: AP portable upright chest single view Exam date and time: December 29, 1999 2510 0 1:00 AM Comparison December 14, 2024 INDICATIONS: Shortness of breath today. FINDINGS: Mild pneumonia both bases, consider aspiration pneumonia Normal heart size Prominent osteopenia IMPRESSION: Bibasilar pneumonia, consider aspiration pneumonia
[2024-12-28] MEDS: ALBUTEROL/IPRATROPIUM (Duoneb) RT SOL 3 ML NEBU INH ×2 (09:26→18:28)
[2024-12-28 09:36] LABS: Lactate (Lactic Acid) 1.1 mMol/L (0.4-2.0)
[2024-12-28 09:38] LABS: Basophils # (Auto) 0.1 Thou/mm3 (0.0-0.2); Basophils % (Auto) 1 % (0-2.5); Eosinophils % (Auto) 0 % (0-10); Hematocrit 44.7 % (41.0-53.0); Hemoglobin 13.5 g/dL (13.5-16.0); Immature Granulocytes % (Auto) 4 % (0-0); Immature Granulocytes Auto 0.42 Thou/mm3 (0.00-0.00); Lymphocytes # (Auto) 0.6 Thou/mm3 (1.0-4.8); Lymphocytes % (Auto) 6 % (10-50); Mean Corpuscular HGB Conc 30.2 g/dl (31.0-37.0); Mean Corpuscular Hemoglobin 30.8 pg (25.0-35.0); Mean Corpuscular Volume 102 fL (80-100); Monocytes # (Auto) 0.7 Thou/mm3 (0.0-0.8); Monocytes % (Auto) 8 % (0-12); Neutrophils % (Auto) 81 % (37-80); Nucleated Red Blood Cell % 0 /100 WBC (0); Platelet Count 103 Thou/mm3 (140-440); RDW Standard Deviation 51.9 fL (35.1-43.9); Red Blood Count 4.38 Miln/mm3 (4.50-5.90); White Blood Count 9.8 Thou/mm3 (3.8-10.6)
[2024-12-28 09:44] LABS: Base Excess 20 (-3-3); HCO3 53 mEq/L (20-26); Inspired O2, VO2 Liters 4 L/min; O2 Saturation 92 % (91-98); PCO2 109 mmHg (32.0-48.0); PO2 73 mmHg (83-108); pH, Arterial 7.29 (7.35-7.45)
[2024-12-28 09:45] LABS: Allen Test Performed/OK; Puncture Site Left Radial
[2024-12-28 09:53] LABS: Sed Rate (ESR) 29 mm/hr (0-20)
[2024-12-28] MEDS: MethylPREDNISolone SOD SUCC 62.5 MG/ML 2ML VIAL 125 MG IVP (09:53)
[2024-12-28 09:56] LABS: Ammonia 28 uMol/L (11-32)
[2024-12-28] MEDS: cefTRIAXone 1,000 MG in SODIUM CHLORIDE 0.9% (Popper) 50 ML 100 MG IV (09:58)
[2024-12-28 10:08] LABS: Collection Type, Urine Clean Catch
[2024-12-28 10:12] LABS: Alanine Aminotransferase 14 U/L (10-49); Albumin, Serum 4.1 gm/dL (3.4-4.8); Albumin/Globulin Ratio 1.8 (1.2-2.2); Alkaline Phosphatase 60 U/L (46-116); Anion Gap 7 (7-16); Aspartate Amino Transferase 20 U/L (0-34); BUN/Creatinine Ratio 28 Ratio (12-20); Bilirubin,Total 0.5 mg/dL (0.3-1.2); Blood Urea Nitrogen 17 mg/dL (9-23); Calcium 9.8 mg/dL (8.3-10.6); Calcium (Corrected) 9.8 mg/dL (8.5-10.1); Carbon Dioxide > 40.0 mMol/L (20.0-31.0); Chloride 95 mMol/L (98-107); Creatinine (Component) 0.6 mg/dL (0.6-1.3); Globulin 2.3 gm/dL (2.3-3.5); Glucose 123 mg/dL (74-106); Magnesium 1.7 mg/dL (1.6-2.6); Osmolality,Calculated 285 (275-295); Potassium 4.4 mMol/L (3.4-5.1); Procalcitonin 0.18 ng/ml (0.0-0.49); Sodium 142 mMol/L (136-145); Total Protein 6.4 gm/dL (5.7-8.2); Troponin I 0.038 ng/mL (0.0-0.045); eGFR > 60 See Note
[2024-12-28 10:17] LABS: D-Dimer 759 ng/mL (<600)
[2024-12-28 10:20] LABS: Bacteria,Urine 4+; Bilirubin,Urine Negative (Negative); Blood,Urine Negative (Negative); Clarity,Urine Turbid (Clear/Hazy); Color,Urine Yellow (Lt Yel-Yel); Glucose, Urine 4+ (Negative); Ketones,Urine 1+ (Negative); Leukocyte Esterase,Urine Negative (Negative); Nitrite,Urine Negative (Negative); Protein,Urine 1+ (Neg - Trace); RBC,Urine 7 /hpf (0-3); Squamous Epithelial Cell,Urine < 1 /hpf (0-5); Urobilinogen,Urine Negative mg/dL (0.0-1.0); WBC,Urine 12 /hpf (0-5)
[2024-12-28 10:34] LABS: B-Type Natriuretic Peptide 62 pg/mL (0-100)
[2024-12-28 11:04] LABS: Culture Indicated,Urine Yes
[2024-12-28 11:20] LABS: Free T4 (Free Thyroxine) 1.26 ng/dL (0.89-1.76)
[2024-12-28 12:01] LABS: INR 1.1 (0.9-1.3); Partial Thromboplastin Time 26.7 Seconds (22.0-36.0); Prothrombin Time 11.6 Seconds (9.0-12.2)
[2024-12-28] MEDS: AZITHROMYCIN INJ 500 MG in SODIUM CHLORIDE 0.9% 250 ML 250 ML 250 MG IV (12:38)
--- NOTE | 2024-12-28 14:57 | PC.CC ---
Lata MILES attempted to make face to face contact with patient to complete initial assessment. At this time patient is not alert and oriented to complete initial assessment with [employer].
--- NOTE | 2024-12-28 15:30 | ESHP_ITS ---
<Statement entered by Gustavo Monique MD - 12/28/24 16:52> This patient is a 64-year-old male with past medical history of COPD with chronic CO2 retention, HFpEF EF 55-60%, A-fib rate controlled presented with shortness of breath and hypoxia in 70s requiring BiPAP. ABG showed chronic hypercapnia with hypoxia. Patient was started on BiPAP therapy and IV antibiotic therapy cefepime and azithromycin with DuoNebs and steroid and treating for HCAP. COVID and flu was negative. Patient will be continued on strict I&O's, fluid restriction and was given Lasix 40 mg x 1 as chest x-ray showed moderate vascular congestion. CTA was negative for PE. Vitals otherwise were stable and no fever spikes. Labs did not reveal elevated white count. Chronic thrombocytopenia seen. Medications were reconciled. We will continue with BiPAP as needed. All labs and orders were reviewed. I saw and examined the patient, and I agree with current management stated by Dr Brijesh MD,PGY1. Plan of care was discussed with the attending physician and resident physician. Disclaimer: Despite multiple revisions, due to the dictation software being used, the document bellow may not be free of grammatical errors including phonetic/typographic errors. However, this does not deter from our commitment to providing health care in the patient's best interest in mind. Dr. Kayden MD, PGY 2 Documentation for date of: 12/28/24 HPI History of Present Illness History of present illness: Mr. Lowe is a 64-year-old male with a past medical history of hypertension, COPD on 2L of oxygen at home, history of paroxysmal A-fib and CHF HFpEF 55 to 60% presented to the ED due to altered mental status noted by family members and shortness of breath. History provided by the patient is limited due to patient is currently on BiPAP and states he is unable to clearly hear and respond. Pt is A&O x3. Patient has recurrent admissions to the hospital due to COPD exacerbation. Patient states he has been not compliant with his medications for least past 5 days. Patient also states he is supposed to use the BiPAP daily but he has not been using it daily and definitely did not use it last night. Pt was recently admitted to the hopital less than 2 weeks for similar symptoms. Pt states he has worsening shortness of breath and cough for several days. Patient denies any chest pain, palpitation or dizziness. Patient denied dysuria or urgency. In the ED pt is placed on BIPAP. ED course Vitals: BP 173/67, HR 86, RR 19 Labs: Hemoglobin 13.5, hematocrit 44.7, MCV 102, Plt 103, ESR 29, D-Dimer 759 CMP: Chloride 95, bicarb >40, BUN/creatinine ratio 28, glucose 123, C-reactive protein 2 point, TSH 0.40 ABG: pH 7.29, pCO2 109, O2 73, HCO3 53 Urinalysis: Urine pH 8.0, 1+ urine protein, 4+ urine glucose, 1+ urine ketones, urine RBC 7, urine WBC 12, urine bacteria 4+ Images: CT pelvis/abdomen: Pneumonia left base with left pleural effusion, No renal or ureteral calculi, no hydronephrosis, Normal appendix, Small fat-containing umbilical hernia, Mild thickening of the urinary bladder wall up to 3.5 mm, consider cystitis Suspicious for avascular necrosis left femoral head Chest CTA: Negative for pulmonary artery emboli, Heavy calcification left anterior descending coronary artery, Pneumonia left base with small left pleural effusion CXR: Bibasilar pneumonia, consider aspiration pneumonia Head CT: Negative for acute hemorrhage, mass effect or midline shift PMH: COPD with recurrent exacerbation, HFpEF 55-60%, 4 L home oxygen, paroxysmal A-fib, HTN, HLD PSH: Not significant. Home meds: From last discharge: albuterol inhaler, trelegy inhaler, furosemide 40 mg BID, started on 25 mg daily, farxiga 5 mg. ALLERGIES: Unable to obtain. SH: >[id number] smoking, active smoker with 1 pack daily. Positive creation of drug use Review of Systems Review of Systems Systems Reviewed: All systems reviewed, normal except as documented Past Medical History Past Medical History NEUROLOGIC: Positive Seizures CARDIAC: Positive Cardiac Disorders, Atrial Fibrillation, Hypercholesterolemia, Congestive Heart Failure and Hypertension RESPIRATORY: Positive Chronic Obstructive Pulmonary Disease (COPD), Asthma and Pneumonia GASTROINTESTINAL: Positive Obesity GENITOURINARY: Negative Renal Disease ENDOCRINE: Negative Diabetes Mellitus Type 1 or Diabetes Mellitus Type 2 HEMATOLOGIC: Negative Sickle Cell Disease PSYCHO/SOCIAL: Positive Recreational Drug Use and Anxiety OTHER HISTORY: Positive Falls; Negative Cancer Surgical History SURGICAL: Positive Open Heart Surgery and Coronary Artery Bypass Graft Social History SMOKING STATUS: Current some day smoker SECOND HAND EXPOSURE: No Exam Vital Signs Temp Pulse Resp BP Pulse Ox O2 Del Method O2 Flow Rate 97.2 F 74 20 153/78 H 93 L BiPAP 4 12/28/24 15:12 12/28/24 15:12 12/28/24 15:12 12/28/24 15:12 12/28/24 15:12 12/28/24 15:12 12/28/24 09:33 FiO2 40 12/28/24 10:25 Narrative Exam GENERAL: A&Ox3 . Awake, Not in acute distress, on BiPAP NEURO: no focal neurological deficits noted HEENT: Atraumatic, Normocephalic. mucous membranes moist. Eyes open, symmetrical, & clear HEART: Normal Heart Sounds LUNGS: coarse breath sounds bilaterally, no wheezing or crackles ABDOMEN: soft, mildy distended, non-tender, bowel sounds heard, no guarding or rebound tenderness SKIN: stasis dermatitis notes bilaterally on LE, dry flaky skin, seborrheic dermatitis noted on face EXTREMITIES: No edema, tenderness, able to move all 4 extremities, pedal pulses palpated Results: Labs 12/29/24 05:04 12/28/24 09:28 Labs: Short CBC 12/28/24 Range/Units 09:28 WBC 9.8 (3.8-10.6) Thou/mm3 Hgb 13.5 (13.5-16.0) g/dL Hct 44.7 (41.0-53.0) % Plt Count 103 L D (140-440) Thou/mm3 BMP 12/28/24 09:28 Sodium 142 Potassium 4.4 Chloride 95 L Carbon Dioxide > 40.0 H BUN 17 Creatinine 0.6 Glucose 123 H Calcium 9.8 Cardiac Enzymes 12/28/24 Range/Units 09:28 Troponin I 0.038 (0.0-0.045) ng/mL Liver Function 12/28/24 Range/Units 09:28 Total Bilirubin 0.5 (0.3-1.2) mg/dL AST 20 (0-34) U/L ALT 14 (10-49) U/L Alkaline Phosphatase 60 (46-116) U/L Albumin 4.1 (3.4-4.8) gm/dL Urine 12/28/24 Range/Units 09:54 Urine Color Yellow (Lt Yel-Yel) Urine Clarity Turbid A (Clear/Hazy) Urine pH 8.0 H (5.0-7.0) Ur Specific [place] 1.020 (1.001-1.035) Urine Protein 1+ A (Neg - Trace) Urine Glucose (UA) 4+ A (Negative) ABG Interpretation ABG results: 12/28/24 09:33 ABG pH 7.29 L ABG pCO2 109 H* ABG pO2 73 L ABG HCO3 53 H ABG O2 Saturation 92 ABG Base Excess 20 H Quality Measures Quality Measures VTE prophylaxis (Lovenox) Medications Home Medications and Allergies Home Medications ?Medication ?Instructions ?Recorded ?Confirmed ?Type furosemide 40 mg tablet 40 mg PO BID 11/08/24 History Allergies Allergy/AdvReac Type Severity Reaction Status Date / Time No Known Allergies Allergy Verified 12/14/24 22:54 Visit Medications Acetaminophen (Acetaminophen 325 Mg Tablet) 650 mg PO Q6H PRN PRN Reason: Fever >101.5 Stop: 01/27/25 15:22 Albuterol/Ipratropium (Albuterol/Ipratropium (Duoneb) Rt Marita 3 Ml Nebu) 3 ml INH Q4HRRT PRN PRN Reason: SOB and Wheezing Stop: 01/27/25 18:59 Enoxaparin Sodium (Enoxaparin Sod Inj 40 Mg/0.4 Ml Syringe) 40 mg SC QDAY FREDIS Stop: 01/11/25 15:29 Furosemide (Furosemide Inj 10 Mg/Ml 4ml Vial) 40 mg IVP BID FREDIS Stop: 01/27/25 15:04 Methylprednisolone Sodium Succinate (Methylprednisolone Sod Succ 62.5 Mg/Ml 2ml Vial) 125 mg IVP QDAY FREDIS Stop: 01/05/25 08:59 Discontinued Medications Albuterol/Ipratropium (Albuterol/Ipratropium (Duoneb) Rt Marita 3 Ml Nebu) 3 ml INH X1 ONE Stop: 12/28/24 09:11 Last Admin: 12/28/24 09:26 Dose: 3 ml Ceftriaxone Sodium 1,000 mg/ (Sodium Chloride) 50 mls @ 100 mls/hr IV X1 ONE Stop: 12/28/24 09:39 Last Infusion: 12/28/24 10:28 Dose: Infused Azithromycin 500 mg/ Sodium (Chloride) 250 mls @ 250 mls/hr IV X1 ONE Stop: 12/28/24 12:37 Last Infusion: 12/28/24 14:00 Dose: Infused Acetazolamide Sodium 500 mg/ (Sodium Chloride) 50 mls @ 500 mls/hr IV X1 ONE Stop: 12/28/24 15:05 Methylprednisolone Sodium Succinate (Methylprednisolone Sod Succ 62.5 Mg/Ml 2ml Vial) 125 mg IVP X1 ONE Stop: 12/28/24 09:11 Last Admin: 12/28/24 09:53 Dose: 125 mg Assessment & Plan Plan Mr. Lowe is a 64-year-old male with a past medical history of hypertension, COPD on 2L of oxygen at home, history of paroxysmal A-fib and CHF HFpEF 55 to 60% presented to the ED due to altered mental status noted by family members and shortness of breath. # Hospital versus community-acquired pneumonia with likey gram+ organisms # Acute on chronic hypoxic and hypercapnic respiratory failure 2/2 to above # COPD exacerbation # Respiratory acidosis with chronic metabolic compensation 2/2 to COPD vs PNA #Pleural effusion, small - left -Pt complains of worsening shortness of breath and cough, admits to non compliance with medications, denied fever or chills -COVID and influenza negative -On admission ABG: pH 7.29, pCO2 109, O2 73, HCO3 53 -CT pelvis/abdomen: Pneumonia left base with left pleural effusion -Chest CTA:Pneumonia left base with small left pleural effusion -CXR: Bibasilar pneumonia, consider aspiration pneumonia -In the ED patient was placed on BiPAP, given Solu-Medrol, Lasix x 1, azithromycin x 1, ceftriaxone x 1, acetazolamide x 1 Plan: -Supplemental oxygen as needed -BiPAP as needed -DuoNebs as needed -Referral to respiratory therapy -Aspiration precaution -Solu-Medrol daily -Cefepime and azithromycin started 12/28/2024- #Urinary Tract Infection -Urinalysis: Urine pH 8.0, 1+ urine protein, 4+ urine glucose, 1+ urine ketones, urine RBC 7, urine WBC 12, urine bacteria 4+ -Pt denied symptoms of dysuria and urgency -Pt is on cefepime -urine culture pending #Chronic thrombocytopenia -Plt count 103 -Pt chronically thrombocytopenic, no signs of active bleeding -Pt is advised to follow up out pt with primary care physician # Primary hypertension #Hx. of A-fib- rate controlled #CHF HfpEF 55-60% -On admission patient blood pressure was 173/67 -> 144/86 -[id number] score 2-patient is not taking any anticoagulation and any rate control medications. -Previous EKG shows sinus rhythm without A-fib -Strict I's and O's fluid restriction to 1800 -Resume home Lasix #Nicotine dependence, active smoker -Pt is an active smoker with >60 packs year smoking history -nicotine patch ordered as need #Other CT findings - Suspicious for avascular necrosis left femoral head -Heavy calcification left anterior descending coronary artery -Follow up outpatient with primary care physican Health Maintenance Disposition: Med-tele for AHRF 2/ to COPD exacerbation DVT Prophylaxis: enoxaparin 40mg Qdaily GI Prophylaxis: Pantoprozol-40 IV Qday Diet: NPO Lines: Peripheral lines Code status: Full Assessment and plan discussed with my senior resident Dr. Monique & attending physician Dr. Yasmani Coley (PGY-1)- Internal medicine resident Attending Provider Attestation/Addendum I have discussed and was present for the essential components of the history, physical examination, diagnosis, and treatment plan with the resident. I agree with the patient's care as documented by the resident and amended herein by me. Herman Gruber DO. Although this document has been carefully reviewed, there may still be some phonetic and other typographical errors. These errors are purely grammatical due to imperfections in the software program and should not be construed in any way to compromise the substance of the patient's medical care during this visit.
[2024-12-28] MEDS: ACETAzolaMIDE SOD 500 MG in SODIUM CHLORIDE 0.9% (Popper) 50 ML IV (15:58)
[2024-12-28] MEDS: ENOXAPARIN SOD INJ 40 MG/0.4 ML SYRINGE SC (16:01)
[2024-12-28] MEDS: FUROSEMIDE INJ 10 MG/ML 4ML VIAL 40 MG IVP ×2 (16:02→22:00)
[2024-12-28] MEDS: CEFEPIME INJ 2 GM in SODIUM CHLORIDE 0.9% (Popper) 50 ML IV ×2 (16:06→22:20)
--- NOTE | 2024-12-28 16:44 | PC.NURSE ---
report given to aureliano Rivers
[2024-12-28] MEDS: Magnesium Sulfate 4 GM Ivpb 4 GM/50 ML BAG IV (17:42)
[2024-12-29] VITALS (17 sets, daily range): BP systolic 118–139; BP diastolic 59–75; PULSE 66–80; RESP 18–28; TEMP 36.1–36.4; O2SAT 88–97
[2024-12-29] MEDS: ALBUTEROL/IPRATROPIUM (Duoneb) RT SOL 3 ML NEBU INH ×7 (02:15→23:25)
--- NOTE | 2024-12-29 02:52 | PC.NURSE ---
Dr. Logan at bedside to assess the patient.
[2024-12-29 03:47] LABS: Base Excess 18 (-3-3); HCO3 47 mEq/L (20-26); Inspired Oxygen, FIO2 35 %; O2 Saturation 88 % (91-98); PCO2 75 mmHg (32.0-48.0); pH, Arterial 7.41 (7.35-7.45)
[2024-12-29 03:49] LABS: Allen Test Performed/OK; Puncture Site Site Not Noted
[2024-12-29 03:50] LABS: PO2 55 mmHg (83-108)
[2024-12-29 04:03] LABS: Respiratory Syncytial Virus Ag Negative (Negative)
--- NOTE | 2024-12-29 04:42 | PC.RT ---
fio2 increased to 45% to maintain spo2 >88%-92%, spo2 89%, DR. Gaines made aware of abg results.
[2024-12-29] MEDS: CEFEPIME INJ 2 GM in SODIUM CHLORIDE 0.9% (Popper) 50 ML IV ×3 (05:29→21:18)
[2024-12-29 06:12] LABS: Basophils % (Auto) 0 % (0-2.5); Eosinophils % (Auto) 0 % (0-10); Hemoglobin 13.1 g/dL (13.5-16.0); Immature Granulocytes % (Auto) 2 % (0-0); Immature Granulocytes Auto 0.24 Thou/mm3 (0.00-0.00); Lymphocytes # (Auto) 0.8 Thou/mm3 (1.0-4.8); Lymphocytes % (Auto) 8 % (10-50); Mean Corpuscular Hemoglobin 30.8 pg (25.0-35.0); Mean Corpuscular Volume 97 fL (80-100); Monocytes # (Auto) 0.7 Thou/mm3 (0.0-0.8); Monocytes % (Auto) 7 % (0-12); Neutrophils # (Auto) 8.3 Thou/mm3 (1.8-7.7); Neutrophils % (Auto) 82 % (37-80); Nucleated Red Blood Cell % 0 /100 WBC (0); Platelet Count 87 Thou/mm3 (140-440); RDW Standard Deviation 49.2 fL (35.1-43.9); Red Blood Count 4.25 Miln/mm3 (4.50-5.90); White Blood Count 10.1 Thou/mm3 (3.8-10.6)
[2024-12-29] MEDS: AZITHROMYCIN INJ 500 MG in SODIUM CHLORIDE 0.9% 250 ML 250 ML 250 MG IV (08:16)
[2024-12-29] MEDS: MethylPREDNISolone SOD SUCC 62.5 MG/ML 2ML VIAL 60 MG IVP (08:19)
[2024-12-29] MEDS: PANTOPRAZOLE INJ 40 MG VIAL IV (08:20)
[2024-12-29] MEDS: ENOXAPARIN SOD INJ 40 MG/0.4 ML SYRINGE SC (08:20)
[2024-12-29] MEDS: FUROSEMIDE INJ 10 MG/ML 4ML VIAL 40 MG IVP ×2 (08:20→20:06)
--- NOTE | 2024-12-29 10:49 | PC.SS ---
Patient Padilla Lowe is a 64 Year old male admitted for AHRF/COPD Exacerbation. SS met with patient at bedside to discuss discharge plan. Patient utilizes a walker to assist with ambulation as well as a wheelchair. Patient utilizes oxygen at home at 4L. Prior to admission patient was able to complete ADL's independently. Patient reports [facility] of [facility]. Patient?s medical surrogate decision maker is Daniel meraz . Patient?s PCP is Nickolas Jones. At time of discharge patient will discharge home. Next of Kin: Daniel Meraz D/C Plan: Home
--- NOTE | 2024-12-29 14:53 | ESPR_ITS ---
<Statement entered by Gustavo Monique MD - 12/29/24 15:13> Patient was seen and examined at the bedside. Patient reported that he wants to have his breakfast however he was explained that we need to continue BiPAP. Weaning off oxygen on BiPAP as tolerated as patient was maintaining saturation above 90%. We titrate down the steroids Solu-Medrol to 40 mg once daily. Patient was started on diet. Will continue cefepime for GPC growing in urine. Continue with current management. All labs and orders were reviewed. I saw and examined the patient, and I agree with current management stated by Dr Brijesh MD,PGY1. Plan of care was discussed with the attending physician and resident physician. Disclaimer: Despite multiple revisions, due to the dictation software being used, the document bellow may not be free of grammatical errors including phonetic/typographic errors. However, this does not deter from our commitment to providing health care in the patient's best interest in mind. Dr. Andie MD, PGY 2 Documentation for date of: 12/29/24 Subjective Subjective Interval history: Overnight team reported pt desatted and FiO2 on BiPap is increased to 45. Pt is seen and examined at bedside. Pt is on Bipap still and is unable to given history, although he can nod. Denies chest pain, or abdominal pain. Pt is hungry is asking if he can eat some food. Repeat ABG from this morning: pH 7.41, CO2 75, O2 55, HCO3 47, O2 sat 88, which are improved from last night. vitals and CBC is stable. Pt is urine culture prelim reported GPC, pt is currently on azithromycin and cefepime. Child Caregiver [facility] other complains. Exam Vital Signs Temp Pulse Resp BP Pulse Ox O2 Del Method O2 Flow Rate 97.0 F 70 23 H 126/70 91 L BiPAP 4 12/29/24 12:00 12/29/24 12:00 12/29/24 12:00 12/29/24 12:00 12/29/24 12:00 12/29/24 12:00 12/29/24 03:48 FiO2 30 12/29/24 10:34 Narrative Exam GENERAL: A&Ox3 . Awake, Not in acute distress, on BiPAP NEURO: no focal neurological deficits noted HEENT: Atraumatic, Normocephalic. mucous membranes moist. Eyes open, symmetrical, & clear HEART: Normal Heart Sounds LUNGS: coarse breath sounds bilaterally, no wheezing or crackles ABDOMEN: soft, not distended, non-tender, bowel sounds heard, no guarding or rebound tenderness SKIN: stasis dermatitis notes bilaterally on LE, dry flaky skin, seborrheic dermatitis noted on face EXTREMITIES: No edema, tenderness, able to move all 4 extremities, pedal pulses palpated Objective Labs 12/29/24 05:04 12/29/24 15:10 Labs: Laboratory Results - last 24 hr 12/28/24 12/29/24 12/29/24 23:55 03:37 05:04 WBC 10.1 RBC 4.25 L Hgb 13.1 L Hct 41.0 MCV 97 MCH 30.8 MCHC 32.0 RDW Std Deviation 49.2 H Plt Count 87 L Neut % (Auto) 82 H Lymph % (Auto) 8 L [place] % (Auto) 7 Eos % (Auto) 0 Baso % (Auto) 0 Neut # (Auto) 8.3 H Lymph # (Auto) 0.8 L [place] # (Auto) 0.7 Eos # (Auto) 0.0 Baso # (Auto) 0.0 Immature Gran # (Auto) 0.24 H Absolute Nucleated RBC 0.00 Immature Gran % 2 H Nucleated RBC % 0 Puncture Site Site Not Noted ABG pH 7.41 D ABG pCO2 75 H* D ABG pO2 55 L* ABG HCO3 47 H ABG O2 Saturation 88 L ABG Base Excess 18 H FiO2 35 RSV Rapid Negative ABG Interpretation ABG results: 12/28/24 12/29/24 09:33 03:37 ABG pH 7.29 L 7.41 D ABG pCO2 109 H* 75 H* D ABG pO2 73 L 55 L* ABG HCO3 53 H 47 H ABG O2 Saturation 92 88 L ABG Base Excess 20 H 18 H Quality Measures Quality Measures VTE prophylaxis (Lovenox) Assessment & Plan Assessment Current Active Medications: Generic Name Dose Route Start Last Admin Trade Name Freq PRN Reason Stop Dose Admin Acetaminophen 650 mg 12/28/24 15:23 Acetaminophen 325 Mg Tablet PO 01/27/25 15:22 Q6H PRN Fever >101.5 Albuterol/Ipratropium 3 ml 12/28/24 15:23 12/28/24 18:28 Albuterol/Ipratropium (Duoneb) Rt Marita 3 Ml Nebu INH 01/27/25 18:59 3 ml Q4HRRT PRN Administration SOB and Wheezing Albuterol/Ipratropium 3 ml 12/29/24 02:10 12/29/24 10:33 Albuterol/Ipratropium (Duoneb) Rt Marita 3 Ml Nebu INH 01/28/25 02:09 3 ml Q4HRRT FREDIS Administration Enoxaparin Sodium 40 mg 12/28/24 15:30 12/29/24 08:20 Enoxaparin Sod Inj 40 Mg/0.4 Ml Syringe SC 01/11/25 15:29 40 mg QDAY FREDIS Administration Furosemide 40 mg 12/28/24 15:05 12/29/24 08:20 Furosemide Inj 10 Mg/Ml 4ml Vial IVP 01/27/25 15:04 40 mg BID FREDIS Administration Cefepime HCl 2 gm/ Sodium 50 mls @ 100 mls/hr 12/28/24 15:46 12/29/24 13:59 Chloride IV 01/04/25 15:45 100 mls/hr Q8HR FREDIS Administration Azithromycin 500 mg/ Sodium 250 mls @ 250 mls/hr 12/29/24 09:00 12/29/24 08:16 Chloride IV 01/01/25 08:59 250 mls/hr QDAY FREDIS Administration Methylprednisolone Sodium Succinate 40 mg 12/30/24 09:00 Methylprednisolone Sod Succ 62.5 Mg/Ml 2ml Vial IVP 01/06/25 08:59 QDAY FREDIS Nicotine 21 mg 12/28/24 16:37 Nicotine Patch 21 Mg/24 Hr Patch.Td24 TOP 01/27/25 16:36 QDAY PRN Nicotine Cravings Ondansetron HCl 4 mg 12/28/24 16:52 Ondansetron Inj 2 Mg/Ml Inj 2 Ml IV 01/27/25 16:51 Q6HR PRN NAUSEA OR VOMITING Protocol Pantoprazole Sodium 40 mg 12/29/24 09:00 12/29/24 08:20 Pantoprazole Inj 40 Mg Vial IV 01/28/25 08:59 40 mg QDAY FREDIS Administration Plan Mr. Lowe is a 64-year-old male with a past medical history of hypertension, COPD on 2L of oxygen at home, history of paroxysmal A-fib and CHF HFpEF 55 to 60% presented to the ED due to altered mental status noted by family members and shortness of breath. # Hospital versus community-acquired pneumonia with likey gram+ organisms # Acute on chronic hypoxic and hypercapnic respiratory failure 2/2 to above # COPD exacerbation # Respiratory acidosis with chronic metabolic compensation 2/2 to COPD vs PNA #Pleural effusion, small - left -Pt complains of worsening shortness of breath and cough, admits to non compliance with medications, denied fever or chills -COVID and influenza negative -On admission ABG: pH 7.29, pCO2 109, O2 73, HCO3 53 -CT pelvis/abdomen: Pneumonia left base with left pleural effusion -Chest CTA:Pneumonia left base with small left pleural effusion -CXR: Bibasilar pneumonia, consider aspiration pneumonia -In the ED patient was placed on BiPAP, given Solu-Medrol, Lasix x 1, azithromycin x 1, ceftriaxone x 1, acetazolamide x 1 Plan: -Supplemental oxygen as needed -BiPAP as needed -DuoNebs as needed -Referral to respiratory therapy -Aspiration precaution -Solu-Medrol daily -Cefepime and azithromycin started 12/28/2024- #Urinary Tract Infection #GPC bacteriuria -Urinalysis: Urine pH 8.0, 1+ urine protein, 4+ urine glucose, 1+ urine ketones, urine RBC 7, urine WBC 12, urine bacteria 4+ -Pt denied symptoms of dysuria and urgency -urine culture grew GPC -Pt is on cefepime #Chronic thrombocytopenia -Plt count 87 -Pt chronically thrombocytopenic, no signs of active bleeding -Pt is advised to follow up out pt with primary care physician # Primary hypertension #Hx. of A-fib- rate controlled #CHF HfpEF 55-60% -On admission patient blood pressure was 173/67 -> 144/86 -[id number] score 2-patient is not taking any anticoagulation and any rate control medications. -Previous EKG shows sinus rhythm without A-fib -Strict I's and O's fluid restriction to 1800 -Resume home Lasix #Nicotine dependence, active smoker -Pt is an active smoker with >60 packs year smoking history -nicotine patch ordered as need #Other CT findings - Suspicious for avascular necrosis left femoral head -Heavy calcification left anterior descending coronary artery -Follow up outpatient with primary care physician Health Maintenance Disposition: Med-tele for AHRF 2/2 to COPD exacerbation DVT Prophylaxis: enoxaparin 40mg Qdaily GI Prophylaxis: Pantoprozol-40 IV Qday Diet: NPO Lines: Peripheral lines Code status: Full Assessment and plan discussed with my senior resident Dr. Monique & attending physician Dr. Yasmani Coley (PGY-1)- Internal medicine resident Attending Provider Attestation/Addendum I have discussed and was present for the essential components of the history, physical examination, diagnosis, and treatment plan with the resident. I agree with the patient's care as documented by the resident and amended herein by me. Herman Gruber, DO. Although this document has been carefully reviewed, there may still be some phonetic and other typographical errors. These errors are purely grammatical due to imperfections in the software program and should not be construed in any way to compromise the substance of the patient's medical care during this visit.
[2024-12-29 16:10] LABS: Alanine Aminotransferase 19 U/L (10-49); Albumin/Globulin Ratio 1.7 (1.2-2.2); Alkaline Phosphatase 49 U/L (46-116); Anion Gap 6 (7-16); Aspartate Amino Transferase 29 U/L (0-34); BUN/Creatinine Ratio 18 Ratio (12-20); Bilirubin,Total 0.4 mg/dL (0.3-1.2); Blood Urea Nitrogen 23 mg/dL (9-23); Calcium 9.2 mg/dL (8.3-10.6); Calcium (Corrected) 9.2 mg/dL (8.5-10.1); Carbon Dioxide 38.2 mMol/L (20.0-31.0); Chloride 95 mMol/L (98-107); Creatinine (Component) 1.3 mg/dL (0.6-1.3); Globulin 2.4 gm/dL (2.3-3.5); Glucose 166 mg/dL (74-106); Magnesium 2.2 mg/dL (1.6-2.6); Osmolality,Calculated 285 (275-295); Phosphorous 2.5 mg/dL (2.4-5.1); Sodium 139 mMol/L (136-145); Total Protein 6.4 gm/dL (5.7-8.2); eGFR > 60 See Note
[2024-12-30] VITALS (13 sets, daily range): BP systolic 99–140; BP diastolic 58–93; PULSE 60–80; RESP 12–27; TEMP 36.1–37.1; O2SAT 69–98
[2024-12-30] MEDS: ALBUTEROL/IPRATROPIUM (Duoneb) RT SOL 3 ML NEBU INH ×6 (04:04→23:44)
[2024-12-30] MEDS: CEFEPIME INJ 2 GM in SODIUM CHLORIDE 0.9% (Popper) 50 ML IV ×2 (05:23→13:29)
[2024-12-30 06:36] LABS: Basophils % (Auto) 0 % (0-2.5); Eosinophils % (Auto) 0 % (0-10); Hematocrit 38.1 % (41.0-53.0); Hemoglobin 12.2 g/dL (13.5-16.0); Immature Granulocytes % (Auto) 2 % (0-0); Immature Granulocytes Auto 0.14 Thou/mm3 (0.00-0.00); Lymphocytes # (Auto) 0.9 Thou/mm3 (1.0-4.8); Lymphocytes % (Auto) 11 % (10-50); Mean Corpuscular Hemoglobin 30.3 pg (25.0-35.0); Mean Corpuscular Volume 95 fL (80-100); Monocytes # (Auto) 0.5 Thou/mm3 (0.0-0.8); Monocytes % (Auto) 6 % (0-12); Neutrophils # (Auto) 6.8 Thou/mm3 (1.8-7.7); Neutrophils % (Auto) 81 % (37-80); Nucleated Red Blood Cell % 0 /100 WBC (0); Platelet Count 100 Thou/mm3 (140-440); Red Blood Count 4.02 Miln/mm3 (4.50-5.90); White Blood Count 8.4 Thou/mm3 (3.8-10.6)
[2024-12-30 06:48] LABS: Alanine Aminotransferase 16 U/L (10-49); Albumin, Serum 3.8 gm/dL (3.4-4.8); Albumin/Globulin Ratio 1.7 (1.2-2.2); Alkaline Phosphatase 43 U/L (46-116); Anion Gap 4 (7-16); Aspartate Amino Transferase 25 U/L (0-34); BUN/Creatinine Ratio 33 Ratio (12-20); Bilirubin,Total 0.4 mg/dL (0.3-1.2); Blood Urea Nitrogen 30 mg/dL (9-23); Calcium 8.8 mg/dL (8.3-10.6); Carbon Dioxide > 40.0 mMol/L (20.0-31.0); Chloride 94 mMol/L (98-107); Creatinine (Component) 0.9 mg/dL (0.6-1.3); Globulin 2.3 gm/dL (2.3-3.5); Glucose 102 mg/dL (74-106); Magnesium 2.2 mg/dL (1.6-2.6); Osmolality,Calculated 281 (275-295); Phosphorous 2.9 mg/dL (2.4-5.1); Potassium 3.2 mMol/L (3.4-5.1); Sodium 138 mMol/L (136-145); Total Protein 6.1 gm/dL (5.7-8.2); eGFR > 60 See Note
[2024-12-30] MEDS: POTASSIUM CHLORIDE 20 mEq TABCR 40 MEQ PO (09:35)
[2024-12-30] MEDS: PANTOPRAZOLE INJ 40 MG VIAL IV (09:38)
[2024-12-30] MEDS: MethylPREDNISolone SOD SUCC 62.5 MG/ML 2ML VIAL 40 MG IVP (09:42)
[2024-12-30] MEDS: FUROSEMIDE INJ 10 MG/ML 4ML VIAL 40 MG IVP (09:42)
[2024-12-30] MEDS: ENOXAPARIN SOD INJ 40 MG/0.4 ML SYRINGE SC (09:44)
[2024-12-30] MEDS: AZITHROMYCIN INJ 500 MG in SODIUM CHLORIDE 0.9% 250 ML 250 ML 250 MG IV (09:49)
[2024-12-30 14:51] LABS: Base Excess, Venous 14 (-3-3); O2 Saturation, Venous 96 % (96-97); PCO2, Venous 51 mmHg (36-56); PO2, Venous 128 mmHg (15-58)
--- NOTE | 2024-12-30 14:56 | PC.SS ---
SS follow up note; Weaning down on 02. Urine cultures pending, patient is on Bipap.
--- NOTE | 2024-12-30 15:46 | ESPR_ITS ---
<Statement entered by Gustavo Monique MD - 12/30/24 17:17> Patient was seen and examined at the bedside. Patient was doing fairly well and had no acute overnight events reported. Patient is still requiring higher oxygen requirement 4 L to 6 L to maintain saturation around 88-92%. Patient was taken off from BiPAP however continues was placed on BiPAP during afternoon. Potassium was repleted. VBG's were unremarkable. Patient was given IV Lasix after which he showed good diuresis output with negative balance of 2.7 L. Urine culture grew staphylococci sciuri which we are covering with cefepime. Will continue with azithromycin for COPD exacerbation. Solu-Medrol was switched to steroids/prednisone 40 mg once daily. Continue with current management. Anticipating discharge tomorrow. All labs and orders were reviewed. I saw and examined the patient, and I agree with current management stated by Dr Brijesh MD,PGY1. Plan of care was discussed with the attending physician and resident physician. Disclaimer: Despite multiple revisions, due to the dictation software being used, the document bellow may not be free of grammatical errors including phonetic/typographic errors. However, this does not deter from our commitment to providing health care in the patient's best interest in mind. Dr. Kayden MD, PGY 2 Documentation for date of: 12/30/24 Subjective Subjective Interval history: no acute overnight events reported. Pt is seen and examined at bedside this morning, saturating low 80's% on 4L of oxygen -> oxygen is increased to 6L via oxymask. pt denies chest pain or abdominal pain, adn endorses to feeling great and denies SOB. vitals and labs are stable with exception of potassium 3.2, 40meq is repleated. Pt is on lasix and has output of 2.5L. urine culture grew GPC, currently on antibiotics (azithro + cefepime). Solumedorol is switched to prednisone. repeat VBG are within normal limits: pH 7.50, pCO2 51, pO2 128, O2 sat 128, O2 sat 96%. Pt has no other complains and is tolerating oral diet. Exam Vital Signs Temp Pulse Resp BP Pulse Ox O2 Del Method O2 Flow Rate 98.3 F 70 20 121/66 95 BiPAP 4 12/30/24 12:00 12/30/24 14:17 12/30/24 14:17 12/30/24 12:00 12/30/24 14:17 12/30/24 12:00 12/30/24 14:17 FiO2 40 12/30/24 12:00 Narrative Exam GENERAL: A&Ox3 . Awake, Not in acute distress, on BiPAP NEURO: no focal neurological deficits noted HEENT: Atraumatic, Normocephalic. mucous membranes moist. Eyes open, symmetrical, & clear HEART: Normal Heart Sounds LUNGS: coarse breath sounds bilaterally, no wheezing or crackles ABDOMEN: soft, not distended, non-tender, bowel sounds heard, no guarding or rebound tenderness SKIN: stasis dermatitis notes bilaterally on LE, dry flaky skin, seborrheic dermatitis noted on face EXTREMITIES: No edema, tenderness, able to move all 4 extremities, pedal pulses palpated Objective Labs 12/31/24 04:46 12/31/24 04:46 Labs: Laboratory Results - last 24 hr 12/29/24 12/30/24 12/30/24 15:10 06:15 14:15 WBC 8.4 RBC 4.02 L Hgb 12.2 L Hct 38.1 L MCV 95 MCH 30.3 MCHC 32.0 RDW Std Deviation 48.0 H Plt Count 100 L Neut % (Auto) 81 H Lymph % (Auto) 11 [place] % (Auto) 6 Eos % (Auto) 0 Baso % (Auto) 0 Neut # (Auto) 6.8 Lymph # (Auto) 0.9 L [place] # (Auto) 0.5 Eos # (Auto) 0.0 Baso # (Auto) 0.0 Immature Gran # (Auto) 0.14 H Absolute Nucleated RBC 0.00 Immature Gran % 2 H Nucleated RBC % 0 VBG pH 7.50 VBG pCO2 51 VBG pO2 128 H VBG O2 Sat (Osmin) 96 VBG Base Excess 14 H Sodium 139 138 Potassium 4.0 3.2 L D Chloride 95 L 94 L Carbon Dioxide 38.2 H > 40.0 H Anion Gap 6 L 4 L BUN 23 30 H Creatinine 1.3 D 0.9 Estim Creat Clear Calc Not Performed. Not Performed. eGFR > 60 > 60 BUN/Creatinine Ratio 18 33 H Glucose 166 H 102 D Calculated Osmolality 285 281 Calcium 9.2 8.8 Corrected Calcium 9.2 9.0 Phosphorus 2.5 2.9 Magnesium 2.2 2.2 Total Bilirubin 0.4 0.4 AST 29 25 ALT 19 16 Alkaline Phosphatase 49 43 L Total Protein 6.4 6.1 Albumin 4.0 3.8 Globulin 2.4 2.3 Albumin/Globulin Ratio 1.7 1.7 ABG Interpretation ABG results: 12/28/24 12/29/24 12/30/24 09:33 03:37 14:15 ABG pH 7.29 L 7.41 D ABG pCO2 109 H* 75 H* D ABG pO2 73 L 55 L* ABG HCO3 53 H 47 H ABG O2 Saturation 92 88 L ABG Base Excess 20 H 18 H VBG pH 7.50 VBG pCO2 51 VBG pO2 128 H VBG Base Excess 14 H Quality Measures Quality Measures VTE prophylaxis (Lovenox) Assessment & Plan Assessment Current Active Medications: Generic Name Dose Route Start Last Admin Trade Name Freq PRN Reason Stop Dose Admin Acetaminophen 650 mg 12/29/24 15:31 Acetaminophen 325 Mg Tablet PO 01/27/25 15:22 Q6H PRN Fever > 100.3 Albuterol/Ipratropium 3 ml 12/28/24 15:23 12/28/24 18:28 Albuterol/Ipratropium (Duoneb) Rt Marita 3 Ml Nebu INH 01/27/25 18:59 3 ml Q4HRRT PRN Administration SOB and Wheezing Albuterol/Ipratropium 3 ml 12/29/24 02:10 12/30/24 14:16 Albuterol/Ipratropium (Duoneb) Rt Marita 3 Ml Nebu INH 01/28/25 02:09 3 ml Q4HRRT FREDIS Administration Enoxaparin Sodium 40 mg 12/28/24 15:30 12/30/24 09:44 Enoxaparin Sod Inj 40 Mg/0.4 Ml Syringe SC 01/11/25 15:29 40 mg QDAY FREDIS Administration Furosemide 40 mg 12/28/24 15:05 12/30/24 09:42 Furosemide Inj 10 Mg/Ml 4ml Vial IVP 01/27/25 15:04 40 mg BID FREDIS Administration Cefepime HCl 2 gm/ Sodium 50 mls @ 100 mls/hr 12/28/24 15:46 12/30/24 13:29 Chloride IV 01/04/25 15:45 100 mls/hr Q8HR FREDIS Administration Azithromycin 500 mg/ Sodium 250 mls @ 250 mls/hr 12/29/24 09:00 12/30/24 09:49 Chloride IV 01/01/25 08:59 250 mls/hr QDAY FREDIS Administration Nicotine 21 mg 12/28/24 16:37 Nicotine Patch 21 Mg/24 Hr Patch.Td24 TOP 01/27/25 16:36 QDAY PRN Nicotine Cravings Ondansetron HCl 4 mg 12/28/24 16:52 Ondansetron Inj 2 Mg/Ml Inj 2 Ml IV 01/27/25 16:51 Q6HR PRN NAUSEA OR VOMITING Protocol Pantoprazole Sodium 40 mg 12/29/24 09:00 12/30/24 09:38 Pantoprazole Inj 40 Mg Vial IV 01/28/25 08:59 40 mg QDAY FREDIS Administration Prednisone 40 mg 12/31/24 10:00 Prednisone 20 Mg Tablet PO 01/30/25 09:59 QDAY FREDIS Plan Mr. Lowe is a 64-year-old male with a past medical history of hypertension, COPD on 2L of oxygen at home, history of paroxysmal A-fib and CHF HFpEF 55 to 60% presented to the ED due to altered mental status noted by family members and shortness of breath. # Hospital versus community-acquired pneumonia with likey gram+ organisms # Acute on chronic hypoxic and hypercapnic respiratory failure 2/2 to above # COPD exacerbation # Respiratory acidosis with chronic metabolic compensation 2/2 to COPD vs PNA #Pleural effusion, small - left -Pt complains of worsening shortness of breath and cough, admits to non compliance with medications, denied fever or chills -COVID and influenza negative -On admission ABG: pH 7.29, pCO2 109, O2 73, HCO3 53 -CT pelvis/abdomen: Pneumonia left base with left pleural effusion -Chest CTA:Pneumonia left base with small left pleural effusion -CXR: Bibasilar pneumonia, consider aspiration pneumonia -In the ED patient was placed on BiPAP, given Solu-Medrol, Lasix x 1, azithromycin x 1, ceftriaxone x 1, acetazolamide x 1 Plan: -Supplemental oxygen as needed -BiPAP as needed -DuoNebs as needed -Referral to respiratory therapy -Aspiration precaution -BC no growth after 48 hours -Switch solu-Medrol daily to prednisone dialy -Cefepime and azithromycin started 12/28/2024- #Urinary Tract Infection #GPC bacteriuria -Urinalysis: Urine pH 8.0, 1+ urine protein, 4+ urine glucose, 1+ urine ketones, urine RBC 7, urine WBC 12, urine bacteria 4+ -Pt denied symptoms of dysuria and urgency -urine culture grew staph sciuri -Pt is on cefepime #Chronic thrombocytopenia -Plt count 87 -Pt chronically thrombocytopenic, no signs of active bleeding -Pt is advised to follow up out pt with primary care physician # Primary hypertension #Hx. of A-fib- rate controlled #CHF HfpEF 55-60% -On admission patient blood pressure was 173/67 -> 144/86 -[id number] score 2-patient is not taking any anticoagulation and any rate control medications. -Previous EKG shows sinus rhythm without A-fib -Strict I's and O's fluid restriction to 1800 -Resume home Lasix #Nicotine dependence, active smoker -Pt is an active smoker with >60 packs year smoking history -nicotine patch ordered as need #Other CT findings - Suspicious for avascular necrosis left femoral head -Heavy calcification left anterior descending coronary artery -Follow up outpatient with primary care physician Health Maintenance Disposition: Med-tele for AHRF 2/ to COPD exacerbation DVT Prophylaxis: enoxaparin 40mg Qdaily GI Prophylaxis: Pantoprozol-40 IV Qday Diet: NPO Lines: Peripheral lines Code status: Full Assessment and plan discussed with my senior resident Dr. Monique & attending physician Dr. Yasmani Coley (PGY-1)- Internal medicine resident Attending Provider Attestation/Addendum I have discussed and was present for the essential components of the history, physical examination, diagnosis, and treatment plan with the resident. I agree with the patient's care as documented by the resident and amended herein by me. Herman Gruber DO. Although this document has been carefully reviewed, there may still be some phonetic and other typographical errors. These errors are purely grammatical due to imperfections in the software program and should not be construed in any way to compromise the substance of the patient's medical care during this visit.
[2024-12-31] VITALS (10 sets, daily range): BP systolic 116–135; BP diastolic 52–74; PULSE 67–94; RESP 12–24; TEMP 36.3–36.6; O2SAT 93–97; BMI 29.4
[2024-12-31] MEDS: FUROSEMIDE INJ 10 MG/ML 4ML VIAL 40 MG IVP ×2 (00:41→09:20)
[2024-12-31] MEDS: CEFEPIME INJ 2 GM in SODIUM CHLORIDE 0.9% (Popper) 50 ML IV ×2 (00:45→06:00)
[2024-12-31] MEDS: ALBUTEROL/IPRATROPIUM (Duoneb) RT SOL 3 ML NEBU INH ×3 (03:25→10:53)
[2024-12-31 06:27] LABS: Basophils % (Auto) 0 % (0-2.5); Eosinophils % (Auto) 0 % (0-10); Hematocrit 40.6 % (41.0-53.0); Hemoglobin 13.2 g/dL (13.5-16.0); Immature Granulocytes % (Auto) 1 % (0-0); Lymphocytes # (Auto) 1.2 Thou/mm3 (1.0-4.8); Lymphocytes % (Auto) 15 % (10-50); Mean Corpuscular HGB Conc 32.5 g/dl (31.0-37.0); Mean Corpuscular Hemoglobin 30.7 pg (25.0-35.0); Mean Corpuscular Volume 94 fL (80-100); Monocytes # (Auto) 0.5 Thou/mm3 (0.0-0.8); Monocytes % (Auto) 6 % (0-12); Neutrophils # (Auto) 6.2 Thou/mm3 (1.8-7.7); Neutrophils % (Auto) 77 % (37-80); Nucleated Red Blood Cell % 0 /100 WBC (0); Platelet Count 99 Thou/mm3 (140-440); RDW Standard Deviation 48.9 fL (35.1-43.9)
[2024-12-31 06:50] LABS: Alanine Aminotransferase 16 U/L (10-49); Albumin, Serum 4.2 gm/dL (3.4-4.8); Albumin/Globulin Ratio 1.8 (1.2-2.2); Alkaline Phosphatase 45 U/L (46-116); Anion Gap 6 (7-16); Aspartate Amino Transferase 22 U/L (0-34); BUN/Creatinine Ratio 31 Ratio (12-20); Bilirubin,Total 0.5 mg/dL (0.3-1.2); Blood Urea Nitrogen 25 mg/dL (9-23); Calcium 9.3 mg/dL (8.3-10.6); Calcium (Corrected) 9.3 mg/dL (8.5-10.1); Carbon Dioxide 36.9 mMol/L (20.0-31.0); Chloride 94 mMol/L (98-107); Creatinine (Component) 0.8 mg/dL (0.6-1.3); Globulin 2.3 gm/dL (2.3-3.5); Glucose 99 mg/dL (74-106); Osmolality,Calculated 278 (275-295); Phosphorous 2.9 mg/dL (2.4-5.1); Potassium 3.5 mMol/L (3.4-5.1); Sodium 137 mMol/L (136-145); Total Protein 6.5 gm/dL (5.7-8.2); eGFR > 60 See Note
[2024-12-31] MEDS: ENOXAPARIN SOD INJ 40 MG/0.4 ML SYRINGE SC (09:22)
[2024-12-31] MEDS: predniSONE 20 MG TABLET 40 MG PO (09:22)
[2024-12-31] MEDS: AZITHROMYCIN INJ 500 MG in SODIUM CHLORIDE 0.9% 250 ML 250 ML 250 MG IV (09:44)
[2024-12-31] MEDS: POTASSIUM CHLORIDE 20 mEq TABCR 40 MEQ PO (09:47)
[2024-12-31] MEDS: PANTOPRAZOLE INJ 40 MG VIAL IV (09:48)
--- NOTE | 2024-12-31 13:34 | ESDS_ITS ---
Planned Discharge Date 12/31/24 DS: Providers Provider Date of admission: 12/28/24 15:23 Primary care physician: Physician No Primary/Family Admitting Provider: Liza Hidalgo MD Attending Provider on Admission: Hong Gruber DO Consults: 12/28/24 15:27 Referral Respiratory Therapy Routine Comment: Attending Provider on DC: Tara Coley MD Discharging Provider: Tara Coley MD DS: Diagnosis Problem List Completed Was Problem List Reviewed/Reconciled?: Yes Hospital Course Hospital Course Hospital course: Mr. Lowe is a 64-year-old male with past medical history significant for hypertension, hyperlipidemia, COPD on 4 L of home oxygen, HFpEF 55 to 60%, paroxysmal atrial fibrillation presented to [facility] on 12/28/2024 complaining of shortness of breath. Patient was found to have hypercapnic respiratory failure secondary to COPD exacerbation. Patient's admits to not being compliant with his medications as well as his oxygen at home. Patient was admitted to the hospital for management of acute hypoxic respiratory failure. Patient was started on BiPAP, IV antibiotics, DuoNebs and steroids. Daily ABG/VBG were collected to monitor for patient's improvement or decline. During the hospital admission patient was also found to have urine culture positive for Staphylococcus sciuri and Pt was antibiotics with cefepime and azithromycin. During hospitalization patient had significant improvement and weaned off of BiPAP and was on 4 L of oxygen via nasal cannula saturating above 90%. Patient is counseled at extent on compliance on his medications including steroids, Lasix and nightly BiPAP use to avoid frequent readmissions to the hospital. Patient states that he cannot promise that he would stay compliant but he will try his best to use it most nights. Discharge Recommendations Take Levaquin for 5 more days for UTI and azithromycin 500 mg once for 1 more day to complete course of antibiotic Take all home medication as prescribed Take prednisone 40 mg once daily for 5 more days Your dapagliflozin was held due to recurrent UTI infection follow-up with your primary care provider Follow-up with primary care provider as outpatient within 2 weeks In case of emergency, call 911 or come back to the ED Hospitalization Diagnosis # Hospital versus community-acquired pneumonia with likey gram+ organisms # Acute on chronic hypoxic and hypercapnic respiratory failure 2/2 to above # COPD exacerbation # Respiratory acidosis with chronic metabolic compensation 2/2 to COPD vs PNA #Pleural effusion, small - left #Urinary Tract Infection #GPC bacteriuria #Chronic thrombocytopenia # Primary hypertension #Hx. of A-fib- rate controlled #CHF HfpEF 55-60% #Nicotine dependence, active smoker #Other CT findings - Suspicious for avascular necrosis left femoral head -Heavy calcification left anterior descending coronary artery -Follow up outpatient with primary care physician Assessment and plan discussed with my attending physician Dr. Yasmani Coley (PGY-1)- Internal medicine resident Time Spent with Patient Time attestation: Total time spent providing and/or coordinating discharge services: Time spent: Greater than 30 minutes Exam Vital Signs Temp Pulse Resp BP Pulse Ox O2 Del Method O2 Flow Rate 97.4 F 93 20 132/74 H 97 Nasal Cannula 4 12/31/24 12:00 12/31/24 12:00 12/31/24 12:00 12/31/24 12:00 12/31/24 12:00 12/31/24 12:00 12/31/24 12:00 FiO2 40 12/30/24 23:49 Narrative Exam GENERAL: A&Ox3 . Awake, Not in acute distress NEURO: no focal neurological deficits HEENT: Atraumatic, Normocephalic. mucous membranes moist. Eyes open, symmetrical, & clear HEART: Normal Heart Sounds LUNGS: Clear to auscultation with no wheezing or crackles. ABDOMEN: soft, non-distended, non-tender, bowel sounds heard, no guarding or rebound tenderness SKIN: stasis dermatitis notes bilaterally on LE, dry flaky skin, seborrheic dermatitis noted on face EXTREMITIES: No edema, tenderness, able to move all 4 extremities, pedal pulses palpated Discharge Plan Plan Patient Disposition: HOME (Self Care) Patient condition on transfer: Stable Care Plan Goals: Take Levaquin for 5 more days for UTI and azithromycin 500 mg once for 1 more day to complete course of antibiotic Take all home medication as prescribed Take prednisone 40 mg once daily for 5 more days Your dapagliflozin was held due to recurrent UTI infection follow-up with your primary care provider Follow-up with primary care provider as outpatient within 2 weeks In case of emergency, call 911 or come back to the ED Prescriptions/Referrals Prescriptions/Med Rec: New prednisone 20 mg Tablet 40 mg PO QDAY 5 Days Qty: 10 0RF nicotine 21 mg/24 hr Patch 24 Hour 21 mg top QDAY PRN (Reason: Nicotine Cravings) Qty: 7 0RF levofloxacin 750 mg tablet 750 mg PO QDAY 5 Days Qty: 5 0RF Continued albuterol sulfate 90 mcg/actuation aerosol powdr breath activated 2 inh inhalation Q6H PRN (Reason: shortness of breath or wheezing) Qty: 1 3RF furosemide 40 mg tablet 40 mg PO BID Patient Comments: TAKE ONE TABLET BY MOUTH TWICE DAILY A DIURETIC Trelegy Ellipta 200-62.5-25 mcg blister with device 1 inh inhalation Q24H Qty: 60 0RF Held dapagliflozin propanediol 5 mg Tablet 10 mg PO QAM 30 Days Qty: 60 0RF Hold Instructions: Resume on 12/31/24. Hold until you see your PCP Discontinued methylprednisolone [Medrol (Agus)] 4 mg tablets,dose pack 4 mg PO QAM Qty: 21 0RF Rx Instructions: As for package instructions Referrals: No Primary/Family,Physician [Primary Care Provider] - Patient/Caregiver Discharge Instructions Education Materials: Discharge Instructions: COPD Print Language: Bulgarian Stand Alone Forms: [facility] Award Info., Patient Portal Info Letter Discharge Order Discharge Orders: Discharge (Routine); Ordered 12/31/24 Ordered By: Gustavo Monique Quality Discharge Quality Measures VTE prophylaxis MD Attestestation MD Attestation I have discussed and was present for the essential components of the discharge history, physical examination, diagnosis, and discharge treatment plan with the resident. I agree with the patient's discharge care as documented by the resident and amended herein by me. Herman Gruber DO. The patient understood all discharge instructions, all questions were answered satisfactorily. The patient was instructed to return to the Emergency Department is symptoms worsened or persisted. Patient was stable, afebrile, tolerating p.o. intake and ambulatory time of discharge, the patient was back to his O2 baseline, will be discharged on a short course of steroids for COPD and Levaquin for UTI. Patient was in agreement, all questions answered satisfactorily. Although this document has been carefully reviewed, there may still be some phonetic and other typographical errors. These errors are purely grammatical due to imperfections in the software program and should not be construed in any way to compromise the substance of the patient's medical care during this visit.
--- NOTE | 2024-12-31 17:27 | PC.SS ---
SS met with pt at bedside providing information about medicare; pt alert and oriented times 4; SS confirmed upon discharge pt had portable O2 options
== END 2024-12-31 13:39 | disposition home or self-care (01) | DRG 193 ==
LOC: SERX 14:53 → SERHOLD 16:55 → S3SX 17:42 → SERHOLD 12-29 06:15
PROVIDERS: Student in an Organized Health Care Education/Training Program; Admitting Provider Internal Medicine; Emergency Provider Emergency Medicine; Visit Provider Student in an Organized Health Care Education/Training Program
DX: J15.9 Unspecified bacterial pneumonia (principal); J96.21 Acute and chronic respiratory failure with hypoxia; J96.22 Acute and chronic respiratory failure with hypercapnia; J44.1 Chronic obstructive pulmonary disease with (acute) exacerbation; I50.32 Chronic diastolic (congestive) heart failure; N39.0 Urinary tract infection, site not specified; J44.0 Chronic obstructive pulmonary disease with (acute) lower respiratory infection; E87.29 Other acidosis; M87.852 Other osteonecrosis, left femur; I48.0 Paroxysmal atrial fibrillation; I11.0 Hypertensive heart disease with heart failure; D69.6 Thrombocytopenia, unspecified; R31.9 Hematuria, unspecified; E78.00 Pure hypercholesterolemia, unspecified; B95.7 Other staphylococcus as the cause of diseases classified elsewhere; F17.210 Nicotine dependence, cigarettes, uncomplicated; Z91.148 Patient's other noncompliance with medication regimen for other reason; Z95.1 Presence of aortocoronary bypass graft; Z99.81 Dependence on supplemental oxygen; Z79.51 Long term (current) use of inhaled steroids; Z79.899 Other long term (current) drug therapy
CPT/HCPCS: 36415; 36600; 70450; 71045; 71275; 74177; 80053; 81001; 82140; 82803; 83605; 83735; 83880; 84100; 84145; 84439; 84443; 84484; 85025; 85379; 85610; 85652; 85730; 86140; 87040; 87077; 87086; 87186; 87400; 87634; 87811; 93005; 93225; 94640; 94660; 96365; 96367; 96372; 96375; 99291; A4649; A9270; J0456; J0692; J0696; J1120; J1650; J1940; J2470; J2919; J3475; J7050; J7512; Q9967

== ENCOUNTER 2025-01-15 00:25 | Inpatient (IN) | payer MEDICARE, MEDICAID, SELFPAY ==
[2025-01-15] VITALS (25 sets, daily range): BP systolic 134–156; BP diastolic 64–80; PULSE 56–110; RESP 12–30; TEMP 36.2–37.1; O2SAT 62–98; BMI 36.4
--- NOTE | 2025-01-15 00:34 | XR_ITS ---
Examination: AP chest single view Technique one AP portable upright chest single view Exam done times: January 15, 2025 0008 hours Comparison December 28, 2024 INDICATIONS: Shortness of breath today FINDINGS: Left base pneumonia, obscuring detail left hemidiaphragm Mild prominence left ventricle Moderate vascular congestion Moderate osteopenia IMPRESSION: Significant left base pneumonia
--- NOTE | 2025-01-15 00:35 | PD.EDSOB ---
ED SOB =RME/HPI General Chief Complaint: Shortness of Breath/Dyspnea Stated Complaint: SHORTNESS OF BREATH Time Seen by Provider: 01/15/25 00:52 Arrival date/time: 01/15/25 00:25 RME / HPI RME / HPI Narrative: This section includes all my notes and documentations, including HPI, PE, and ED course. Rohit Shabazz MD HPI: 64-year-old male here with several days of worsening cough, productive cough, purulent sputum, and dyspnea. Has COPD on 2L home oxygen. No fever. No chest pain. No other complaints. ROS: All negative except as documented in HPI. Physical Exam: General: Lethargic but oriented. In severe respiratory distress. Eyes: Conjunctivae and lids clear. EOMI. PERRL. ENT: No nasal congestion. Neck: Supple. No JVD. Heart: RRR. Lungs: Severe respiratory distress. Severely decreased air movement with diffuse wheezing. Legs: No clubbing, cyanosis, edema. Skin: Warm and dry. Neuro: Lethargic but oriented X 3. Cranial Nerves II-XII grossly intact. No peripheral motor deficits. I reviewed all diagnostic test results. My interpretation of the EKG is sinus rhythm with no acute ST?T changes. My interpretation of the chest x-ray is infiltrates. Blood tests remarkable for negative troponin. ABG showed pH 7.25, pCO2 130, pHCO3 57. UA remarkable for WBC and bacteria. COVID/influenza negative. At this point, diagnoses include acute respiratory failure with hypoxia and hypercapnia, UTI, COPD exacerbation. Treatment here included Solu-Medrol, MgSO4 2 gram IV, neb treatments, Zithromax, and Rocephin. Significant improvement not noted. I discussed the case with our hospitalist. About the presentation and exam and diagnostics and treatments here. And need of further care in the hospital. Will accept the patient. Rohit Shabazz MD Related Data Home Medications ?Medication ?Instructions ?Recorded ?Confirmed furosemide 40 mg tablet 40 mg PO BID 11/08/24 12/16/24 Previous Rx's ?Medication ?Instructions ?Recorded albuterol sulfate 90 mcg/actuation 2 inh inhalation Q6H PRN shortness 09/20/24 breath activated powder inhaler of breath or wheezing #1 ea fluticasone fur. 200 mcg-umeclid 1 inh inhalation Q24H #60 ea 11/10/24 62.5 mcg-vilant 25 mcg inhalat.powder (Trelegy Ellipta) dapagliflozin propanediol 5 mg 10 mg (2 x 5 mg) PO QAM 1 month 12/20/24 tablet #60 tabs Held on 01/16/25. Instructions: Resume on 01/30/25. Hold until you see your PCP nicotine 21 mg/24 hr daily 21 mg top QDAY PRN Nicotine 12/31/24 transdermal patch Cravings #7 ea azithromycin 250 mg tablet 250 mg PO QDAY 3 days #3 tabs 01/16/25 prednisone 20 mg tablet 40 mg PO QDAY 5 days #10 tabs 01/16/25 Allergies Allergy/AdvReac Type Severity Reaction Status Date / Time No Known Allergies Allergy Verified 01/15/25 00:32 Course Quality Measures none Orders Category Date Time Status Bedside COVID-19 Antigen Test NOW Care 01/15/25 00:32 Completed Bedside Influenza A&B Antigen Test NOW Care 01/15/25 00:32 Completed COVID-19 Screening Questionnaire NOW Care 01/15/25 02:38 Completed Decision to Admit X1 Care 01/15/25 02:38 Completed EKG (ED ONLY) *Do not use* NOW Care 01/15/25 00:33 Completed Yoder [Urinary Catheter] QS Care 01/15/25 02:56 Completed Yoder [Urinary Catheter] QS Care 01/15/25 02:56 Completed Saline [Insert IV] NOW Care 01/15/25 00:32 Completed EKG (ED Only) Stat Exams 01/15/25 00:33 Ordered XR chest 1V portable Stat Exams 01/15/25 00:34 Completed ABG [Arterial Blood Gas] Stat Lab 01/15/25 01:44 Completed ABG [Arterial Blood Gas] Stat Lab 01/15/25 04:02 Completed ABG [Arterial Blood Gas] Stat Lab 01/15/25 05:05 Completed BNP [B-Type Natriuretic Peptide] Stat Lab 01/15/25 01:00 Completed CBC Stat Lab 01/15/25 01:00 Completed CMP [Comprehensive Metabolic Panel] Stat Lab 01/15/25 01:00 Completed D-Dimer Stat Lab 01/15/25 01:00 Completed Magnesium Stat Lab 01/15/25 01:00 Completed RSV [Respiratory Syncytial Virus Ag] Stat Lab 01/15/25 01:20 Completed TSH [Thyroid Stimulating Hormone] Stat Lab 01/15/25 01:00 Completed Troponin I Stat Lab 01/15/25 01:00 Completed UA, C/S IF [Urinalysis, C/S if Indicated] Stat Lab 01/15/25 02:45 Completed Albuterol/Ipratr Rt Marita [Duoneb Rt Marita] Med 01/15/25 00:32 Discontinued 6 ml INH X1 ONE Magnesium Sulfate 2 GM Ivpb [Magnesium Sulfate Ivpb] Med 01/15/25 00:32 Discontinued 2 gm in 50 ml IV X1 MethylPREDNISolone.* [SoluMEDROL Inj] Med 01/15/25 00:32 Discontinued 125 mg IVP X1 ONE BiPAP / CPAP NOW RT 01/15/25 00:32 Completed Vital Signs Vital signs: Vital Signs Pulse Rate 87 01/15/25 00:34 Respiratory Rate 22 H 01/15/25 00:34 Blood Pressure 154/75 H 01/15/25 00:34 Pulse Oximetry (%) 94 L 01/15/25 00:34 Oxygen Delivery Method Oxy Mask 01/15/25 00:34 Oxygen Flow Rate 6 01/15/25 00:34 Shortness of Breath / Dyspnea Patient data External records reviewed:: [facility] previous records and EMS form Clinical information provided by:: patient and EMS Social determinants that could affect healthcare access:: none Patient has the following chronic illnesses:: COPD How is presenting disease/condition affected by chronic disease/condition?: exacerbated by Evaluation data The following diagnostics were reviewed and interpreted by me:: lab results, radiology exam(s) and EKG tracing(s) (My interpretation of the EKG is: Sinus rhythm (98 bpm) with nonspecific ST-T changes. Rohit Shabazz MD) Lab and/or radiology exams considered but not ordered:: None Interpretation Summary: acute respiratory failure with hypoxia and hypercapnia, UTI, COPD exacerbation Medications / Prescriptions Medications or Prescriptions considered but not ordered:: None Medication administrations:: Medication Administration History Discontinued Medications Acetaminophen (Acetaminophen 325 Mg Tablet) 650 mg PO Q6H PRN PRN Reason: Fever >101.5 Stop: 02/14/25 05:26 Acetaminophen (Acetaminophen 325 Mg Tablet) 650 mg PO Q6H PRN PRN Reason: PAIN SCALE 1-3 (mild Stop: 02/14/25 05:26 Albuterol/Ipratropium (Albuterol/Ipratropium (Duoneb) Rt Marita 3 Ml Nebu) 6 ml INH X1 ONE Stop: 01/15/25 00:33 Last Admin: 01/15/25 01:21 Dose: 6 ml Documented By: TM Albuterol/Ipratropium (Albuterol/Ipratropium (Duoneb) Rt Marita 3 Ml Nebu) 3 ml INH Q6H FREDIS Stop: 02/14/25 05:44 Albuterol/Ipratropium (Albuterol/Ipratropium (Duoneb) Rt Marita 3 Ml Nebu) 3 ml INH Q6HRRT FREDIS Stop: 02/14/25 06:59 Last Admin: 01/16/25 06:49 Dose: 3 ml Documented By: Admin: 01/16/25 00:57 Dose: 3 ml Documented By: Admin: 01/15/25 18:26 Dose: 3 ml Documented By: Admin: 01/15/25 12:49 Dose: 3 ml Documented By: Admin: 01/15/25 07:17 Dose: 3 ml Documented By: CRISTINA Cyanocobalamin (Cyanocobalamin Inj 1,000 Mcg/Ml Vial) 1,000 mcg IM X1 ONE Stop: 01/16/25 07:47 Last Admin: 01/16/25 08:11 Dose: Not Given Documented By: ANETTE Non-Admin Reason: Patient Refused Furosemide (Furosemide Inj 10 Mg/Ml Vial 2 Ml) 20 mg IVP BIDD [facility] Stop: 02/14/25 17:59 Last Admin: 01/15/25 17:40 Dose: 20 mg Documented By: FRANKIE Furosemide (Furosemide Inj 10 Mg/Ml Vial 2 Ml) 20 mg IVP BIDD [facility] Stop: 02/15/25 08:59 Last Admin: 01/16/25 08:01 Dose: 20 mg Documented By: ANETTE Heparin Sodium (Porcine) (Heparin Sod Inj 5000 Unit/Ml Vial) 5,000 unit SC Q8HR [facility] Stop: 01/29/25 06:29 Last Admin: 01/15/25 15:31 Dose: Not Given Documented By: FRANKIE Non-Admin Reason: Patient Refused Admin: 01/15/25 06:39 Dose: 5,000 unit Documented By: BARBARA Co-signed By: Heparin Sodium (Porcine) (Heparin Sod Inj 5000 Unit/Ml Vial) 5,000 unit SC BID FREDIS Stop: 01/30/25 08:59 Last Admin: 01/16/25 09:49 Dose: Not Given Documented By: TD Non-Admin Reason: Patient Refused Magnesium Sulfate (Magnesium Sulfate Ivpb) 2 gm in 50 mls @ 25 mls/hr IV X1 ONE Stop: 01/15/25 02:31 Last Infusion: 01/15/25 03:30 Dose: Infused Documented By: Admin: 01/15/25 01:14 Dose: 25 mls/hr Documented By: PIPPA Ceftriaxone Sodium/Dextrose (Rocephin/D5w 1gm Iv Premix) 1 gm in 50 mls @ 100 mls/hr IV QDAY@0600 FREDIS Stop: 01/22/25 05:59 Azithromycin 500 mg/ Sodium (Chloride) 250 mls @ 250 mls/hr IV QDAY FREDIS Stop: 01/23/25 08:59 Last Admin: 01/16/25 09:50 Dose: 250 mls/hr Documented By: ANETTE Ceftriaxone Sodium/Dextrose (Rocephin/D5w 1gm Iv Premix) 1 gm in 50 mls @ 100 mls/hr IV X1 ONE Stop: 01/15/25 06:14 Last Infusion: 01/15/25 07:15 Dose: Infused Documented By: Admin: 01/15/25 06:14 Dose: 100 mls/hr Documented By: PIPPA Azithromycin 500 mg/ Sodium (Chloride) 250 mls @ 250 mls/hr IV X1 ONE Stop: 01/15/25 06:44 Last Infusion: 01/15/25 07:50 Dose: Infused Documented By: Umu Admin: 01/15/25 06:27 Dose: 250 mls/hr Documented By: BARBARA Ceftriaxone Sodium/Dextrose (Rocephin/D5w 1gm Iv Premix) 1 gm in 50 mls @ 100 mls/hr IV DAILY FREDIS Stop: 01/22/25 05:59 Ceftriaxone Sodium/Dextrose (Rocephin/D5w 1gm Iv Premix) 1 gm in 50 mls @ 100 mls/hr IV DAILY FREDIS Stop: 01/23/25 08:59 Last Admin: 01/16/25 08:04 Dose: 100 mls/hr Documented By: TD Methylprednisolone Sodium Succinate (Methylprednisolone Sod Succ 62.5 Mg/Ml 2ml Vial) 125 mg IVP X1 ONE Stop: 01/15/25 00:33 Last Admin: 01/15/25 01:15 Dose: 125 mg Documented By: PIPPA Methylprednisolone Sodium Succinate (Methylprednisolone Sod Succ 62.5 Mg/Ml 2ml Vial) 40 mg IVP Q8H FREDIS Stop: 01/22/25 08:59 Last Admin: 01/16/25 00:34 Dose: 40 mg Documented By: Admin: 01/15/25 17:39 Dose: 40 mg Documented By: Admin: 01/15/25 11:57 Dose: 40 mg Documented By: KDUmu Methylprednisolone Sodium Succinate (Methylprednisolone Sod Succ 40 Mg Vial) 40 mg IVP Q8HR FREDIS Stop: 01/22/25 08:59 Last Admin: 01/16/25 07:24 Dose: 40 mg Documented By: TD Treatment from mt here included Solu-Medrol, MgSO4 2 gram IV, neb treatments, Zithromax, and Rocephin. Consultations Consultation(s) initiated? (list below): No Diagnosis Shortness of Breath Differential Diagnosis: acute exacerbation of chronic obstructive airways disease, congestive heart failure, community acquired pneumonia, asthma with exacerbation and pulmonary embolism Most likely diagnosis given after review of the tests above:: acute respiratory failure with hypoxia and hypercapnia, UTI, COPD exacerbation Admission Indicated Admission indicated?: indicated Explain why admission is indicated or not indicated:: acute respiratory failure with hypoxia and hypercapnia, UTI, COPD exacerbation Admission Request Was there a request for admission?: Yes Admission Attestation Admission request attestation: Discussed case with Hospitalist service regarding admission. Discussed patients ED course, exam findings, labs, and radiology results. The Hospitalist [agrees] to accept the patient for admission. Disposition Plan Disposition Plan: Admit Critical Care Time Critical Care Time Critical Care Time: Yes Total Critical Care Time (min.): 36 Attestation: Due to a high probability of clinically significant, life threatening deterioration, the patient required my highest level of preparedness to intervene emergently and I personally spent this critical care time directly and personally managing the patient. This critical care time included obtaining a history; examining the patient; ordering and review of studies; arranging urgent treatment with development of a management plan; evaluation of patient's response to treatment; frequent reassessment; and discussions with family and other providers. It was exclusive of separately billable procedures and treating other patients and teaching time. Rohit Shabazz MD Discharge Plan Plan Patient Disposition: Admit Acute Care w/in Hospital Problem List Clinical Impression: Acute respiratory failure with hypoxia and hypercapnia, UTI (urinary tract infection), COPD exacerbation
--- NOTE | 2025-01-15 00:58 | PC.NURSE ---
BIB ambulance from home for dyspnea. Hx of COPD . Recient hx of intubation. Pt confused and shaky.
--- NOTE | 2025-01-15 01:01 | PC.NURSE ---
Placed on Bipap now.
[2025-01-15] MEDS: Magnesium Sulfate 2 GM Ivpb 2 GM/50 ML BAG IV (01:14)
[2025-01-15] MEDS: MethylPREDNISolone SOD SUCC 62.5 MG/ML 2ML VIAL 125 MG IVP (01:15)
[2025-01-15] MEDS: ALBUTEROL/IPRATROPIUM (Duoneb) RT SOL 3 ML NEBU 6 ML INH (01:21)
[2025-01-15 01:27] LABS: Basophils % (Auto) 1 % (0-2.5); Eosinophils # (Auto) 0.1 Thou/mm3 (0.0-0.5); Eosinophils % (Auto) 2 % (0-10); Hemoglobin 12.7 g/dL (13.5-16.0); Immature Granulocytes % (Auto) 2 % (0-0); Immature Granulocytes Auto 0.12 Thou/mm3 (0.00-0.00); Lymphocytes # (Auto) 0.9 Thou/mm3 (1.0-4.8); Lymphocytes % (Auto) 15 % (10-50); Mean Corpuscular HGB Conc 29.5 g/dl (31.0-37.0); Mean Corpuscular Hemoglobin 30.9 pg (25.0-35.0); Mean Corpuscular Volume 105 fL (80-100); Monocytes # (Auto) 0.4 Thou/mm3 (0.0-0.8); Monocytes % (Auto) 7 % (0-12); Neutrophils # (Auto) 4.5 Thou/mm3 (1.8-7.7); Neutrophils % (Auto) 74 % (37-80); Nucleated Red Blood Cell % 0 /100 WBC (0); Platelet Count 95 Thou/mm3 (140-440); RDW Standard Deviation 53.9 fL (35.1-43.9); Red Blood Count 4.11 Miln/mm3 (4.50-5.90); White Blood Count 6.1 Thou/mm3 (3.8-10.6)
[2025-01-15 01:50] LABS: B-Type Natriuretic Peptide 63 pg/mL (0-100)
[2025-01-15 01:51] LABS: Base Excess 23 (-3-3); HCO3 57 mEq/L (20-26); Inspired Oxygen, FIO2 50 %; O2 Saturation 90 % (91-98); PCO2 130 mmHg (32.0-48.0); PO2 60 mmHg (83-108); pH, Arterial 7.25 (7.35-7.45)
[2025-01-15 01:51] LABS: D-Dimer 937 ng/mL (<600)
[2025-01-15 01:52] LABS: Allen Test Performed/OK; Puncture Site Right Radial
[2025-01-15 01:54] LABS: Alanine Aminotransferase 18 U/L (10-49); Albumin, Serum 4.1 gm/dL (3.4-4.8); Albumin/Globulin Ratio 1.7 (1.2-2.2); Alkaline Phosphatase 60 U/L (46-116); Anion Gap 12 (7-16); Aspartate Amino Transferase 21 U/L (0-34); BUN/Creatinine Ratio 21 Ratio (12-20); Bilirubin,Total 0.4 mg/dL (0.3-1.2); Blood Urea Nitrogen 15 mg/dL (9-23); Calcium 9.2 mg/dL (8.3-10.6); Calcium (Corrected) 9.2 mg/dL (8.5-10.1); Carbon Dioxide > 40.0 mMol/L (20.0-31.0); Chloride 90 mMol/L (98-107); Creatinine (Component) 0.7 mg/dL (0.6-1.3); Globulin 2.4 gm/dL (2.3-3.5); Glucose 117 mg/dL (74-106); Osmolality,Calculated 284 (275-295); Potassium 5.5 mMol/L (3.4-5.1); Sodium 142 mMol/L (136-145); Thyroid Stimulating Hormone 0.34 uIU/mL (0.55-4.78); Total Protein 6.5 gm/dL (5.7-8.2); Troponin I < 0.020 ng/mL (0.0-0.045); eGFR > 60 See Note
--- NOTE | 2025-01-15 01:58 | PC.NURSE ---
Pt is asleep on bipap. NAD.
--- NOTE | 2025-01-15 02:16 | PC.RT ---
Settings adjusted after ABG results to increase Minute Ventilation.
[2025-01-15 02:24] LABS: Respiratory Syncytial Virus Ag Negative (Negative)
[2025-01-15 03:17] LABS: Collection Type, Urine Clean Catch; RBC,Urine 0 /hpf (0-3); Squamous Epithelial Cell,Urine 0 /hpf (0-5); WBC,Urine 0 /hpf (0-5)
[2025-01-15 03:30] LABS: Bacteria,Urine Rare; Bilirubin,Urine Negative (Negative); Blood,Urine Negative (Negative); Clarity,Urine Clear (Clear/Hazy); Color,Urine Yellow (Lt Yel-Yel); Culture Indicated,Urine Not Indicated; Glucose, Urine 3+ (Negative); Ketones,Urine Trace (Negative); Leukocyte Esterase,Urine Negative (Negative); Nitrite,Urine Negative (Negative); Protein,Urine 1+ (Neg - Trace); Specific Gravity,Urine 1.023 (1.001-1.035)
[2025-01-15 04:08] LABS: Base Excess 21 (-3-3); HCO3 54 mEq/L (20-26); Inspired Oxygen, FIO2 50 %; O2 Saturation 92 % (91-98); PCO2 120 mmHg (32.0-48.0); PO2 71 mmHg (83-108); pH, Arterial 7.26 (7.35-7.45)
[2025-01-15 04:09] LABS: Allen Test Performed/OK; Puncture Site Right Radial
[2025-01-15 05:11] LABS: Base Excess 23 (-3-3); HCO3 55 mEq/L (20-26); Inspired Oxygen, FIO2 35 %; O2 Saturation 84 % (91-98); PCO2 108 mmHg (32.0-48.0); pH, Arterial 7.32 (7.35-7.45)
[2025-01-15 05:13] LABS: Allen Test Performed/OK; PO2 47 mmHg (83-108); Puncture Site Right Radial
--- NOTE | 2025-01-15 05:39 | ESHP_ITS ---
<Statement entered by Liza Hidalgo MD - 01/16/25 05:06> I reviewed above note and agree with findings and plans. I have also personally examined the patient with medicine team and went over assessment and plan with medical team including sports management internship and resident physician. Documentation for date of: 01/15/25 HPI History of Present Illness History of present illness: The patient is a 64-year-old male with significant past medical history of hypertension, hyperlipidemia, COPD on 2 L home oxygen, HFpEF 55 to 60%, paroxysmal A-fib presented to ED with chief complaint of altered mental status. The patient was found altered and was brought to the ED. He has multiple hopital visit for COPD exacerbation and last discharged on 12/31/2024. The history is obtained from chart review due to his mental status. ROS unobtainable due to AMS. In the ED his vitals were significant for blood pressure 154/75, pulse 87, RR 22, saturating 94% on 6 L oxime mask. Labs are significant for hemoglobin 12.7, MCV 105, RDW 53.9, platelet 95, Initial ABG revealed pH of 7.25, pCO2 130, pO2 60, and improved to pH 7.32, pCO2 108, bicarb 55 after BiPAP. Chemistry panel was significant for potassium 5.5, chloride 90, bicarb greater than 40, blood sugar 117, TSH 0.34. UA revealed protein 1+, glucose 3+, and rare bacteria. RSV, bedside influenza A and B, COVID-19 were negative. CXR was suspicious for right basilar lobe pneumonia, official read pending. PMH: As mentioned above Surgical history: Unremarkable Social history: Active smoker, occasional alcohol use, denies any illicit drug use Allergies: No known allergies Medications: To be reconciled The patient was admitted to telemetry unit for further management of acute encephalopathy secondary to acute on chronic hypoxic hypercapnic respiratory failure. Review of Systems Review of Systems ROS Unobtainable: unobtainable due to mental status Exam Vital Signs Temp Pulse Resp BP Pulse Ox O2 Del Method O2 Flow Rate 98.0 F 71 18 146/64 H 96 BiPAP 6 01/15/25 04:15 01/15/25 04:15 01/15/25 04:15 01/15/25 04:15 01/15/25 04:15 01/15/25 04:15 01/15/25 00:34 FiO2 50 03/23/25 04:15 Narrative Exam General: Obese gentleman, no acute distress, Alert and Oriented x 2, person and date of only HEENT: Moist mucous membranes, oropharynx clear Neck: Supple, No masses, No JVD CVS: S1S2 Regular rate and rhythm, No murmurs, rubs or gallops Lungs: Distant heart sound, difficult to appreciate wheezing Abd: Soft, NT/ND, +BS, no organomegaly Ext: No edema, warm and well perfused Skin: Seborrheic dermatitis over face and santos's, exfoliating skin rash over bilateral leg Psych: Unobtainable Results: Labs 01/15/25 01:00 01/15/25 01:00 Labs: Short CBC 01/15/25 Range/Units 01:00 WBC 6.1 (3.8-10.6) Thou/mm3 Hgb 12.7 L (13.5-16.0) g/dL Hct 43.0 (41.0-53.0) % Plt Count 95 L (140-440) Thou/mm3 BMP 01/15/25 01:00 Sodium 142 Potassium 5.5 H Chloride 90 L Carbon Dioxide > 40.0 H BUN 15 Creatinine 0.7 Glucose 117 H Calcium 9.2 Cardiac Enzymes 01/15/25 Range/Units 01:00 Troponin I < 0.020 (0.0-0.045) ng/mL Liver Function 01/15/25 Range/Units 01:00 Total Bilirubin 0.4 (0.3-1.2) mg/dL AST 21 (0-34) U/L ALT 18 (10-49) U/L Alkaline Phosphatase 60 (46-116) U/L Albumin 4.1 (3.4-4.8) gm/dL Urine 01/15/25 Range/Units 02:45 Urine Color Yellow (Lt Yel-Yel) Urine Clarity Clear (Clear/Hazy) Urine pH 6.0 (5.0-7.0) Ur Specific [place] 1.023 (1.001-1.035) Urine Protein 1+ A (Neg - Trace) Urine Glucose (UA) 3+ A (Negative) ABG Interpretation ABG results: 01/15/25 01/15/25 01/15/25 01:44 04:02 05:05 ABG pH 7.25 L 7.26 L 7.32 L ABG pCO2 130 H* 120 H* D 108 H* D ABG pO2 60 L 71 L 47 L* D ABG HCO3 57 H 54 H 55 H ABG O2 Saturation 90 L 92 84 L ABG Base Excess 23 H 21 H 23 H Quality Measures Quality Measures VTE prophylaxis Medications Home Medications and Allergies Home Medications ?Medication ?Instructions ?Recorded ?Confirmed ?Type furosemide 40 mg tablet 40 mg PO BID 11/08/24 History Allergies Allergy/AdvReac Type Severity Reaction Status Date / Time No Known Allergies Allergy Verified 01/15/25 00:32 Visit Medications Acetaminophen (Acetaminophen 325 Mg Tablet) 650 mg PO Q6H PRN PRN Reason: Fever >101.5 Stop: 02/14/25 05:26 Acetaminophen (Acetaminophen 325 Mg Tablet) 650 mg PO Q6H PRN PRN Reason: PAIN SCALE 1-3 (mild Stop: 02/14/25 05:26 Albuterol/Ipratropium (Albuterol/Ipratropium (Duoneb) Rt Marita 3 Ml Nebu) 3 ml INH Q6HRRT FREDIS Stop: 02/14/25 06:59 Ceftriaxone Sodium/Dextrose (Rocephin/D5w 1gm Iv Premix) 50 mls @ 100 mls/hr IV QDAY@0600 FREDIS Stop: 01/22/25 05:59 Azithromycin 500 mg/ Sodium (Chloride) 250 mls @ 250 mls/hr IV QDAY@0600 FREDIS Stop: 01/22/25 05:59 Methylprednisolone Sodium Succinate (Methylprednisolone Sod Succ 62.5 Mg/Ml 2ml Vial) 40 mg IVP Q8H FREDIS Stop: 01/22/25 05:44 Discontinued Medications Albuterol/Ipratropium (Albuterol/Ipratropium (Duoneb) Rt Marita 3 Ml Nebu) 6 ml INH X1 ONE Stop: 01/15/25 00:33 Last Admin: 01/15/25 01:21 Dose: 6 ml Albuterol/Ipratropium (Albuterol/Ipratropium (Duoneb) Rt Marita 3 Ml Nebu) 3 ml INH Q6H FREDIS Stop: 02/14/25 05:44 Magnesium Sulfate (Magnesium Sulfate Ivpb) 2 gm in 50 mls @ 25 mls/hr IV X1 ONE Stop: 01/15/25 02:31 Last Admin: 01/15/25 01:14 Dose: 25 mls/hr Methylprednisolone Sodium Succinate (Methylprednisolone Sod Succ 62.5 Mg/Ml 2ml Vial) 125 mg IVP X1 ONE Stop: 01/15/25 00:33 Last Admin: 01/15/25 01:15 Dose: 125 mg Assessment & Plan Plan The patient is a 64-year-old male with significant past medical history of hypertension, hyperlipidemia, COPD on 2 L home oxygen, HFpEF 55 to 60%, paroxysmal A-fib presented to ED with chief complaint of altered mental status. The patient was admitted to telemetry unit for further management of acute encephalopathy secondary to acute on chronic hypoxic hypercapnic respiratory failure. #Acute encephalopathy secondary to #Acute on chronic hypoxic hypercapnic respiratory failure 11/27 #COPD exacerbation 11/27 #Possible CAP, with gram-positive organism The patient was found to be on altered mental status state, and initial ABG revealed pH of 7.25, pCO2 130, and was requiring oxygen 6 L via BiPAP. The patient has history of COPD, and has multiple hospital admission for COPD exacerbation Chest x-ray was suspicious for right basal pneumonia ABG improved to pH 7.32, pCO2 108 and bicarb 55 after BiPAP Received IV methylprednisone 125 Mg x 1 in the ED -Continue on BiPAP -Oxygen as needed -DuoNeb every 6 hourly scheduled -Methylprednisone 40 Mg IV 3 times daily, to be tapered down -Started on ceftriaxone and azithromycin -IV magnesium sulfate 2 g given x 1 -Repeat ABG -Daily a.m. labs for CBC, CMP and electrolytes #Mild hyperkalemia Etiology currently unknown Presented with potassium of 5.5 -Repeat BMP, pending report #Mild macrocytic anemia #Thrombocytopenia #Possible MDS Etiology currently unknown DDx: Folate deficiency versus vitamin B12 deficiency versus multifactorial Presented with hemoglobin 12.7, MCV 105, her WBC 53.9, platelet 95, with WBC 6.1 even in the setting of COPD exacerbation -Ordered folate level -Ordered vitamin B12 level -Reticulocyte count -Peripheral blood smear #Subclinical hyperthyroidism Has history of subclinical hyperthyroidism -TSH 0.34 Free T4 ordered #Proteinuria #Glycosuria The patient was started on SGLT2 inhibitor, but that was discontinued 2 weeks back -Repeat urinalysis in a couple of days #Hypertension #Hyperlipidemia #Paroxysmal A-fib -Home medications to be reconciled Health maintenance: Dispo: Patient admitted to telemetry unit for further management of acute encephalopathy secondary to acute on chronic hypercapnic respiratory failure secondary to COPD exacerbation secondary to possible community-acquired pneumonia DVT prophylaxis: Subcu heparin every 8 hourly N.p.o. for now CODE STATUS: Full code The patient's management plan was discussed with my attending physician MD Sushant Castillo MD, PGY2
[2025-01-15 06:03] LABS: Basophils % (Auto) 1 % (0-2.5); Eosinophils % (Auto) 0 % (0-10); Hematocrit 41.6 % (41.0-53.0); Hemoglobin 12.3 g/dL (13.5-16.0); Immature Granulocytes % (Auto) 2 % (0-0); Immature Granulocytes Auto 0.11 Thou/mm3 (0.00-0.00); Lymphocytes # (Auto) 0.3 Thou/mm3 (1.0-4.8); Lymphocytes % (Auto) 5 % (10-50); Mean Corpuscular HGB Conc 29.6 g/dl (31.0-37.0); Mean Corpuscular Hemoglobin 30.2 pg (25.0-35.0); Mean Corpuscular Volume 102 fL (80-100); Monocytes # (Auto) 0.1 Thou/mm3 (0.0-0.8); Monocytes % (Auto) 2 % (0-12); Neutrophils % (Auto) 90 % (37-80); Nucleated Red Blood Cell % 0 /100 WBC (0); Platelet Count 85 Thou/mm3 (140-440); RDW Standard Deviation 52.5 fL (35.1-43.9); Red Blood Count 4.07 Miln/mm3 (4.50-5.90); White Blood Count 6.7 Thou/mm3 (3.8-10.6)
[2025-01-15] MEDS: cefTRIAXone/D5w 1gm IV premix 1 GM/50 ML BAG IV (06:14)
[2025-01-15] MEDS: AZITHROMYCIN INJ 500 MG in SODIUM CHLORIDE 0.9% 250 ML 250 ML 250 MG IV (06:27)
[2025-01-15 06:29] LABS: Immature Reticulocyte Fraction 20.4 % (2.3-13.4); Reticulocyte % (Auto) 2.1 % (0.5-1.5); Reticulocyte Absolute Auto 81.8 Biln/L (25.0-75.0); Reticulocyte Hgb Content 32.7 pg (28.0-35.0)
--- NOTE | 2025-01-15 06:29 | PC.NURSE ---
Pt has been sleeping. continues on bipap. RT made some changes on bipap. pt tolerateing .
[2025-01-15 06:31] LABS: Anion Gap 11 (7-16); BUN/Creatinine Ratio 25 Ratio (12-20); Blood Urea Nitrogen 15 mg/dL (9-23); Calcium 9.1 mg/dL (8.3-10.6); Carbon Dioxide > 40.0 mMol/L (20.0-31.0); Chloride 90 mMol/L (98-107); Creatinine (Component) 0.6 mg/dL (0.6-1.3); Free T4 (Free Thyroxine) 1.24 ng/dL (0.89-1.76); Glucose 134 mg/dL (74-106); Osmolality,Calculated 284 (275-295); Potassium 5.4 mMol/L (3.4-5.1); Sodium 141 mMol/L (136-145); eGFR > 60 See Note
[2025-01-15] MEDS: HEPARIN SOD INJ 5000 UNIT/ML VIAL SC (06:39)
[2025-01-15] MEDS: ALBUTEROL/IPRATROPIUM (Duoneb) RT SOL 3 ML NEBU INH ×3 (07:17→18:26)
--- NOTE | 2025-01-15 07:30 | PC.NURSE ---
REPORT RECEIVED AND CARE ASSUMED. PT TO BE ADMITTED TO [facility] FOR COPD EXACERBATION.
[2025-01-15 08:12] LABS: Path Review Blood Smear Sent to Pathologist
--- NOTE | 2025-01-15 09:17 | PC.CC ---
Frances RODRIGUEZ made face to face contact with the patient to complete initial assessment. Patient was asleep and unable to participate in assessment.
[2025-01-15] MEDS: MethylPREDNISolone SOD SUCC 62.5 MG/ML 2ML VIAL 40 MG IVP ×2 (11:57→17:39)
--- NOTE | 2025-01-15 14:07 | ESPR_ITS ---
<Statement entered by Gustavo Monique MD - 01/15/25 16:34> Patient was seen and examined at the bedside. Patient is admitted overnight for acute on chronic hypoxic hypercapnic respiratory failure due to COPD exacerbation. Patient was found altered and was brought to the hospital. ABGs were significant for elevated pCO2 with acidosis on the pH. Patient was immediately started on BiPAP which showed improvement in patient's clinical status. Continuing Rocephin and azithromycin. Labs were insignificant. Kidney functions are stable. Borderline hyperkalemia. Continuing with Solu-Medrol and breathing treatments. Will follow-up with the recent ABGs. All labs and orders were reviewed. I saw and examined the patient, and I agree with current management stated by Dr Kateryna MD,PGY1. Plan of care was discussed with the attending physician and resident physician. Disclaimer: Despite multiple revisions, due to the dictation software being used, the document bellow may not be free of grammatical errors including phonetic/typographic errors. However, this does not deter from our commitment to providing health care in the patient's best interest in mind. Dr. Kayden MD, PGY 2 Documentation for date of: 01/15/25 Subjective Subjective Interval history: Padilla Lowe is a 64-year-old male with a PMHx of HTN, HLD, COPD on 2 L home O2, HFpEF 55 to 60%, and paroxysmal A-fib who presented with encephalopathy. Per chart review, he was found encephalopathic and brought to the ED. Of note, he has has multiple admissions for COPD exacerbation and last discharged on 12/31 and admitted this time for the same. 01/15: Seen and examined at bedside in ED while on BiPAP. Patient was difficult to arouse but was able to answer some questions and follow commands. Otherwise, given BiPAP difficult to obtain subjective but vital signs stable at bedside. Labs and orders reviewed. Exam Vital Signs Temp Pulse Resp BP Pulse Ox O2 Del Method O2 Flow Rate 97.1 F 71 16 156/80 H 93 L BiPAP 6 01/15/25 13:00 01/15/25 13:00 01/15/25 13:00 01/15/25 13:00 01/15/25 13:00 01/15/25 13:00 01/15/25 00:34 FiO2 35 01/15/25 12:50 Narrative Exam General: fatigued, arousable to pain and voice, on BiPAP HEENT: NC/AT, mucous membranes moist, bilateral sclera anicteric Cardiovascular: regular rate and rhythm, S1/S2 present, no murmurs appreciated Pulmonary: diminished lung sounds bilaterally with some coarse lung sounds appreciated Abdominal: soft, non-tender, non-distended, no rebound/guarding, normal bowel sounds present Musculoskeletal: normal ROM, no peripheral edema Skin: chroniv venous stasis changes in BLE Neuro: unable to assess Objective Labs 01/15/25 05:50 01/15/25 05:50 Labs: Laboratory Results - last 24 hr 01/15/25 01/15/25 01/15/25 01:00 01:20 01:44 WBC 6.1 RBC 4.11 L Hgb 12.7 L Hct 43.0 MCV 105 H MCH 30.9 MCHC 29.5 L RDW Std Deviation 53.9 H Plt Count 95 L Neut % (Auto) 74 Lymph % (Auto) 15 [place] % (Auto) 7 Eos % (Auto) 2 Baso % (Auto) 1 Neut # (Auto) 4.5 Lymph # (Auto) 0.9 L [place] # (Auto) 0.4 Eos # (Auto) 0.1 Baso # (Auto) 0.0 Immature Gran # (Auto) 0.12 H Absolute Nucleated RBC 0.00 Immature Gran % 2 H Nucleated RBC % 0 Smear Path Review Retic Count (auto) Absolute Retic Immature Retic Fraction Retic Hgb Content CHr D-Dimer 937 H Puncture Site Right Radial ABG pH 7.25 L ABG pCO2 130 H* ABG pO2 60 L ABG HCO3 57 H ABG O2 Saturation 90 L ABG Base Excess 23 H FiO2 50 Sodium 142 Potassium 5.5 H Chloride 90 L Carbon Dioxide > 40.0 H Anion Gap 12 BUN 15 Creatinine 0.7 Estim Creat Clear Calc Not Performed. eGFR > 60 BUN/Creatinine Ratio 21 H Glucose 117 H Calculated Osmolality 284 Calcium 9.2 Corrected Calcium 9.2 Magnesium 2.0 Total Bilirubin 0.4 AST 21 ALT 18 Alkaline Phosphatase 60 Troponin I < 0.020 B-Natriuretic Peptide 63 Total Protein 6.5 Albumin 4.1 Globulin 2.4 Albumin/Globulin Ratio 1.7 TSH 0.34 L Free T4 Ur Collection Type Urine Color Urine Clarity Urine pH Ur Specific [place] Urine Protein Urine Glucose (UA) Urine Ketones Urine Blood Urine Nitrite Urine Bilirubin Urine Urobilinogen (Auto) Ur Leukocyte Esterase Urine RBC Urine WBC Ur Squamous Epith Cells Urine Bacteria Ur Culture Indicated? RSV Rapid Negative 01/15/25 01/15/25 01/15/25 02:45 04:02 05:05 WBC RBC Hgb Hct MCV MCH MCHC RDW Std Deviation Plt Count Neut % (Auto) Lymph % (Auto) [place] % (Auto) Eos % (Auto) Baso % (Auto) Neut # (Auto) Lymph # (Auto) [place] # (Auto) Eos # (Auto) Baso # (Auto) Immature Gran # (Auto) Absolute Nucleated RBC Immature Gran % Nucleated RBC % Smear Path Review Retic Count (auto) Absolute Retic Immature Retic Fraction Retic Hgb Content CHr D-Dimer Puncture Site Right Radial Right Radial ABG pH 7.26 L 7.32 L ABG pCO2 120 H* D 108 H* D ABG pO2 71 L 47 L* D ABG HCO3 54 H 55 H ABG O2 Saturation 92 84 L ABG Base Excess 21 H 23 H FiO2 50 35 Sodium Potassium Chloride Carbon Dioxide Anion Gap BUN Creatinine Estim Creat Clear Calc eGFR BUN/Creatinine Ratio Glucose Calculated Osmolality Calcium Corrected Calcium Magnesium Total Bilirubin AST ALT Alkaline Phosphatase Troponin I B-Natriuretic Peptide Total Protein Albumin Globulin Albumin/Globulin Ratio TSH Free T4 Ur Collection Type Clean Catch Urine Color Yellow Urine Clarity Clear Urine pH 6.0 Ur Specific [place] 1.023 Urine Protein 1+ A Urine Glucose (UA) 3+ A Urine Ketones Trace Urine Blood Negative Urine Nitrite Negative Urine Bilirubin Negative Urine Urobilinogen (Auto) 2.0 Ur Leukocyte Esterase Negative Urine RBC 0 Urine WBC 0 Ur Squamous Epith Cells 0 Urine Bacteria Rare Ur Culture Indicated? Not Indicated RSV Rapid 01/15/25 05:50 WBC 6.7 RBC 4.07 L Hgb 12.3 L Hct 41.6 MCV 102 H MCH 30.2 MCHC 29.6 L RDW Std Deviation 52.5 H Plt Count 85 L Neut % (Auto) 90 H Lymph % (Auto) 5 L [place] % (Auto) 2 Eos % (Auto) 0 Baso % (Auto) 1 Neut # (Auto) 6.0 Lymph # (Auto) 0.3 L [place] # (Auto) 0.1 Eos # (Auto) 0.0 Baso # (Auto) 0.0 Immature Gran # (Auto) 0.11 H Absolute Nucleated RBC 0.00 Immature Gran % 2 H Nucleated RBC % 0 Smear Path Review Sent to Pathologist Retic Count (auto) 2.1 H Absolute Retic 81.8 H Immature Retic Fraction 20.4 H Retic Hgb Content CHr 32.7 D-Dimer Puncture Site ABG pH ABG pCO2 ABG pO2 ABG HCO3 ABG O2 Saturation ABG Base Excess FiO2 Sodium 141 Potassium 5.4 H Chloride 90 L Carbon Dioxide > 40.0 H Anion Gap 11 BUN 15 Creatinine 0.6 Estim Creat Clear Calc Not Performed. eGFR > 60 BUN/Creatinine Ratio 25 H Glucose 134 H Calculated Osmolality 284 Calcium 9.1 Corrected Calcium Magnesium Total Bilirubin AST ALT Alkaline Phosphatase Troponin I B-Natriuretic Peptide Total Protein Albumin Globulin Albumin/Globulin Ratio TSH Free T4 1.24 Ur Collection Type Urine Color Urine Clarity Urine pH Ur Specific [place] Urine Protein Urine Glucose (UA) Urine Ketones Urine Blood Urine Nitrite Urine Bilirubin Urine Urobilinogen (Auto) Ur Leukocyte Esterase Urine RBC Urine WBC Ur Squamous Epith Cells Urine Bacteria Ur Culture Indicated? RSV Rapid ABG Interpretation ABG results: 01/15/25 01/15/25 01/15/25 01:44 04:02 05:05 ABG pH 7.25 L 7.26 L 7.32 L ABG pCO2 130 H* 120 H* D 108 H* D ABG pO2 60 L 71 L 47 L* D ABG HCO3 57 H 54 H 55 H ABG O2 Saturation 90 L 92 84 L ABG Base Excess 23 H 21 H 23 H Quality Measures Quality Measures VTE prophylaxis Assessment & Plan Assessment Current Active Medications: Generic Name Dose Route Start Last Admin Trade Name Freq PRN Reason Stop Dose Admin Acetaminophen 650 mg 01/15/25 05:27 Acetaminophen 325 Mg Tablet PO 02/14/25 05:26 Q6H PRN Fever >101.5 Acetaminophen 650 mg 01/15/25 05:27 Acetaminophen 325 Mg Tablet PO 02/14/25 05:26 Q6H PRN PAIN SCALE 1-3 (mild Albuterol/Ipratropium 3 ml 01/15/25 07:00 01/15/25 12:49 Albuterol/Ipratropium (Duoneb) Rt Marita 3 Ml Nebu INH 02/14/25 06:59 3 ml Q6HRRT FREDIS Administration Heparin Sodium (Porcine) 5,000 unit 01/15/25 06:30 01/15/25 06:39 Heparin Sod Inj 5000 Unit/Ml Vial SC 01/29/25 06:29 5,000 unit Q8HR FREDIS Administration Azithromycin 500 mg/ Sodium 250 mls @ 250 mls/hr 01/16/25 09:00 Chloride IV 01/23/25 08:59 QDAY FREDIS Ceftriaxone Sodium/Dextrose 1 gm in 50 mls @ 100 mls/hr 01/16/25 09:00 Rocephin/D5w 1gm Iv Premix IV 01/23/25 08:59 DAILY FREDIS Methylprednisolone Sodium Succinate 40 mg 01/15/25 09:00 01/15/25 11:57 Methylprednisolone Sod Succ 62.5 Mg/Ml 2ml Vial IVP 01/22/25 08:59 40 mg Q8H FREDIS Administration Plan Padilla Lowe is a 64-year-old male with a PMHx of HTN, HLD, COPD on 2 L home O2, HFpEF 55 to 60%, and paroxysmal A-fib who presented with encephalopathy. Per chart review, he was found encephalopathic and brought to the ED. Of note, he has has multiple admissions for COPD exacerbation and last discharged on 12/31 and admitted this time for the same. #Acute COPD exacerbation secondary to #Community acquired pneumonia #Hypercapnic encephalopathy #Acute on chronic hypoxic hypercapnic respiratory failure Received 125 mg IV methylprednisone x 1, DuoNebs, ceftriaxone/azithromycin in ED Initial ABG showed pH 7.25, pCO2 130. While on BiPAP, most recent ABG showed pH 7.39 and pCO2 of 88. CXR showed left base pneumonia. ? Ceftriaxone and azithromycin (01/15-) ? Methylprednisolone 40 mg IV TID ? Continue BiPAP, O2 as needed, DuoNebs every 6 hours scheduled #Hyperkalemia No EKG changes. ? Continue to monitor #Mild macrocytic anemia #Thrombocytopenia Hemoglobin 12.7, MCV 105, platelet 95 ? Follow-up folate and B12 levels ? Follow-up reticulocyte count and peripheral blood smear #Subclinical hyperthyroidism Has history of subclinical hyperthyroidism ? TSH 0.34, free T4 wnl #Hypertension HFpEF (EF 55 to 60% on 09/2024) ? Furosemide 20 mg IV twice daily #Paroxysmal A-fib, not on AC [id number] score of 2 Rate controlled ? Continue to monitor Hospital management: Disposition: COPD exacerbation and hypercapnic encephalopathy requiring BiPAP Diet: n.p.o. given encephalopathic Lines: PIV DVT prophylaxis: heparin SC BID GI prophylaxis: none Yoder: placed CODE STATUS: full code ----- Plan discussed with attending physician Dr. Gruber and senior resident physician Dr. Kayden Avendaño MD PGY-1 Internal Medicine Attending Provider Attestation/Addendum I have discussed and was present for the essential components of the history, physical examination, diagnosis, and treatment plan with the resident. I agree with the patient's care as documented by the resident and amended herein by me. Herman Gruber, DO. Patient seen and evaluated this AM. No acute events overnight, Patient remains on BiPAP, FiO2 35%, flow rate 6. Patient afebrile overnight, significant labs include a hemoglobin of 12.3, platelet count 85 however the patient does have a history of thrombocytopenia, most recent gas today demonstrates a pCO2 of 88, pO2 of 56, bicarb 53. Potassium slightly elevated 5.4, chloride 90, bicarb greater than 40, low TSH but normal free T4, UA negative. Chest x-ray demonstrating significant left base pneumonia. At this time we will continue BiPAP, will continue steroids, will diurese and continue the patient on ceftriaxone and azithromycin for pneumonia. Of note, the patient has been very noncompliant in the past with his medication and is a current tobacco user. Although this document has been carefully reviewed, there may still be some phonetic and other typographical errors. These errors are purely grammatical due to imperfections in the software program and should not be construed in any way to compromise the substance of the patient's medical care during this visit.
[2025-01-15 15:53] LABS: Base Excess 24 (-3-3); HCO3 53 mEq/L (20-26); O2 Saturation 89 % (91-98); PCO2 88 mmHg (32.0-48.0); pH, Arterial 7.39 (7.35-7.45)
[2025-01-15 15:54] LABS: Allen Test Not Performed; Inspired Oxygen, FIO2 35 %; Puncture Site Right Brachial
[2025-01-15 15:56] LABS: PO2 56 mmHg (83-108)
[2025-01-15] MEDS: FUROSEMIDE INJ 10 MG/ML VIAL 2 ML 20 MG IVP (17:40)
[2025-01-15 21:34] LABS: Folate > 24.00 ng/mL (>5.38); Vitamin B12 328 pg/mL (211-911)
[2025-01-16] VITALS (8 sets, daily range): BP systolic 135–159; BP diastolic 78–95; PULSE 49–100; RESP 19–203; TEMP 36–36.8; O2SAT 91–992
[2025-01-16] MEDS: MethylPREDNISolone SOD SUCC 62.5 MG/ML 2ML VIAL 40 MG IVP (00:34)
[2025-01-16] MEDS: ALBUTEROL/IPRATROPIUM (Duoneb) RT SOL 3 ML NEBU INH ×2 (00:57→06:49)
[2025-01-16] MEDS: FUROSEMIDE INJ 10 MG/ML VIAL 2 ML 20 MG IVP (08:01)
[2025-01-16] MEDS: cefTRIAXone/D5w 1gm IV premix 1 GM/50 ML BAG IV (08:04)
[2025-01-16 08:58] LABS: Base Excess, Venous 21 (-3-3); O2 Saturation, Venous 88 % (96-97); PCO2, Venous 69 mmHg (36-56); PO2, Venous 52 mmHg (15-58); pH, Venous 7.46 (7.33-7.66)
[2025-01-16 09:06] LABS: Basophils % (Auto) 0 % (0-2.5); Eosinophils % (Auto) 0 % (0-10); Hematocrit 38.7 % (41.0-53.0); Hemoglobin 12.3 g/dL (13.5-16.0); Immature Granulocytes % (Auto) 1 % (0-0); Lymphocytes # (Auto) 0.4 Thou/mm3 (1.0-4.8); Lymphocytes % (Auto) 6 % (10-50); Mean Corpuscular HGB Conc 31.8 g/dl (31.0-37.0); Mean Corpuscular Hemoglobin 30.7 pg (25.0-35.0); Mean Corpuscular Volume 97 fL (80-100); Monocytes # (Auto) 0.3 Thou/mm3 (0.0-0.8); Monocytes % (Auto) 4 % (0-12); Neutrophils # (Auto) 6.2 Thou/mm3 (1.8-7.7); Neutrophils % (Auto) 88 % (37-80); Nucleated Red Blood Cell % 0 /100 WBC (0); Platelet Count 113 Thou/mm3 (140-440); RDW Standard Deviation 48.9 fL (35.1-43.9); Red Blood Count 4.01 Miln/mm3 (4.50-5.90)
[2025-01-16] MEDS: AZITHROMYCIN INJ 500 MG in SODIUM CHLORIDE 0.9% 250 ML 250 ML 250 MG IV (09:50)
[2025-01-16 09:51] LABS: Alanine Aminotransferase 16 U/L (10-49); Albumin, Serum 4.1 gm/dL (3.4-4.8); Albumin/Globulin Ratio 1.7 (1.2-2.2); Alkaline Phosphatase 50 U/L (46-116); Anion Gap 10 (7-16); Aspartate Amino Transferase 19 U/L (0-34); BUN/Creatinine Ratio 28 Ratio (12-20); Bilirubin,Total 0.4 mg/dL (0.3-1.2); Blood Urea Nitrogen 22 mg/dL (9-23); Carbon Dioxide > 40.0 mMol/L (20.0-31.0); Chloride 91 mMol/L (98-107); Creatinine (Component) 0.8 mg/dL (0.6-1.3); Estimated Creatinine Clearance 115.1 mL/min (>60); Globulin 2.4 gm/dL (2.3-3.5); Glucose 123 mg/dL (74-106); Osmolality,Calculated 285 (275-295); Potassium 4.2 mMol/L (3.4-5.1); Sodium 141 mMol/L (136-145); Total Protein 6.5 gm/dL (5.7-8.2); eGFR > 60 See Note
--- NOTE | 2025-01-16 10:58 | PC.SS ---
Patient Padilla Lowe is a 64 Year old male admitted for COPD Exacerbation. SS met with patient at bedside to discuss discharge plan. Patient utilizes a Wheelchair to assist with ambulation. Patient utilizes oxygen at home at 2L. Prior to admission patient was able to complete ADL's independently. Patient reports his choice of Pharmacy is [facility]. Patient?s medical surrogate decision maker is Daniel meraz . Patient?s PCP is Nickolas Jones. At time of discharge patient will discharge home. Next of Kin: Daniel Meraz D/C Plan: Home
--- NOTE | 2025-01-16 11:57 | ESDS_ITS ---
<Statement entered by Gustavo Monique MD - 01/16/25 13:46> I saw and examined the patient, and I agree with current management stated by Dr Kateryna MD,PGY1. Plan of care was discussed with the attending physician and resident physician. Disclaimer: Despite multiple revisions, due to the dictation software being used, the document bellow may not be free of grammatical errors including phonetic/typographic errors. However, this does not deter from our commitment to providing health care in the patient's best interest in mind. Dr. Kayden MD, PGY 2 Planned Discharge Date 01/16/25 DS: Providers Provider Date of admission: 01/15/25 05:27 Primary care physician: Physician No Primary/Family Admitting Provider: Liza Hidalgo MD Attending Provider on Admission: Hong Gruber DO Attending Provider on DC: Hong Gruber DO Discharging Provider: Hong Gruber DO DS: Diagnosis Problem List Completed Was Problem List Reviewed/Reconciled?: Yes Hospital Course Hospital Course Hospital course: Padilla Lowe is a 64-year-old male with PMHx of hypertension, hyperlipidemia, COPD on 4 L home oxygen, HFpEF 55 to 60%, and paroxysmal A-fib who presented to the ED with acute encephalopathy. Per chart review, patient was found encephalopathic and brought to the ED. In ED, initial ABG showed pH of 7.25, pCO2 130, pO2 of 60 and was placed on BiPAP. Subsequent ABG showed pH 7.32, pCO2 108. Thus, patient was admitted for management of COPD exacerbation and acute on chronic hypercapnic respiratory failure causing encephalopathy. Of note, patient has history of multiple hospital admissions for COPD exacerbation. He was started on azithromycin, Rocephin, and steroids. The following day, patient was seen and examined at bedside on 5 L nasal cannula, alert and oriented x 3, and answering questions appropriately. VBG showed pH 7.46, pCO2 69, and pO2 52. Given that patient was saturating between 88 and 92% and was near his baseline at 5 L nasal cannula, now alert and oriented x 3, he was deemed stable for discharge. He was instructed to complete another 5 days of prednisone 40 mg and azithromycin 250 mg for 3 days. Otherwise, he was also instructed to return to the ED if symptoms worsen or recur. Diagnoses during admission: #Acute COPD exacerbation #Community acquired pneumonia #Hypercapnic encephalopathy #Acute on chronic hypoxic hypercapnic respiratory failure #Hyperkalemia #Mild macrocytic anemia #Thrombocytopenia #Subclinical hyperthyroidism #Hypertension HFpEF (EF 55 to 60% on 09/2024) #Paroxysmal A-fib, not on AC Discharge instructions: - Continue taking prednisone 40 mg (two 20 mg tablets) orally for another 5 days - Continue taking azithromycin 250 mg orally for another 3 days - Hold on taking your dapagliflozin until you follow-up with your PCP - Continue taking all other home medications as prescribed - Follow-up with your primary care physician within 1 week of discharge - Return to the Emergency Department if symptoms worsen or recur Time Spent with Patient Time attestation: Total time spent providing and/or coordinating discharge services: Exam Vital Signs Temp Pulse Resp BP Pulse Ox O2 Del Method O2 Flow Rate 98.3 F 86 28 H 159/78 H 92 L Nasal Cannula 6 01/16/25 08:00 01/16/25 11:49 01/16/25 08:00 01/16/25 08:01 01/16/25 08:00 01/16/25 08:00 01/15/25 00:34 FiO2 5 01/16/25 06:49 Narrative Exam General: alert and orientated x3, on nasal cannula, laying comfortably in bed HEENT: NC/AT, mucous membranes moist, bilateral sclera anicteric Cardiovascular: regular rate and rhythm, S1/S2 present, no murmurs appreciated Pulmonary: diminished lung sounds bilaterally with some coarse lung sounds appreciated Abdominal: soft, non-tender, non-distended, no rebound/guarding, normal bowel so unds present Musculoskeletal: normal ROM, no peripheral edema Skin: chronic venous stasis changes in BLE Discharge Plan Plan Patient Disposition: HOME (Self Care) Care Plan Goals: - Continue taking prednisone 40 mg (two 20 mg tablets) orally for another 5 days - Continue taking azithromycin 250 mg orally for another 3 days - Hold on taking your dapagliflozin until you follow-up with your PCP - Continue taking all other home medications as prescribed - Follow-up with your primary care physician within 1 week of discharge - Return to the Emergency Department if symptoms worsen or recur Prescriptions/Referrals Prescriptions/Med Rec: New azithromycin 250 mg tablet 250 mg PO QDAY 3 Days Qty: 3 0RF Rx Instructions: start on day 2 of therapy prednisone 20 mg tablet 40 mg PO QDAY 5 Days Qty: 10 0RF Taper: Prednisone Taper 20 mg TWICE A DAY for 5 Days and 0 Hour Continued nicotine 21 mg/24 hr Patch 24 Hour 21 mg top QDAY PRN (Reason: Nicotine Cravings) Qty: 7 0RF albuterol sulfate 90 mcg/actuation aerosol powdr breath activated 2 inh inhalation Q6H PRN (Reason: shortness of breath or wheezing) Qty: 1 3RF furosemide 40 mg tablet 40 mg PO BID Patient Comments: TAKE ONE TABLET BY MOUTH TWICE DAILY A DIURETIC Dneislesakshi Ellipta 200-62.5-25 mcg blister with device 1 inh inhalation Q24H Qty: 60 0RF Held dapagliflozin propanediol 5 mg Tablet 10 mg PO QAM 30 Days Qty: 60 0RF Hold Instructions: Resume on 01/30/25. Hold until you see your PCP Referrals: No Primary/Family,Physician [Primary Care Provider] - Patient/Caregiver Discharge Instructions Education Materials: COPD: Chronic Coughing, COPD: Wheezing and Chest Tightness, COPD: Coping with Fatigue, What Is COPD?, Discharge Instructions: COPD, Pursed-Lip Breathing, COPD: Using Inhalers, Treatment for COPD, COPD Meds Print Language: Persian Stand Alone Forms: [facility] Award Info., Patient Portal Info Letter Discharge Order Discharge Orders: Discharge (Routine); Ordered 01/16/25 Ordered By: Lai Todd Ilmaral Quality Discharge Quality Measures VTE prophylaxis Attestestation MD Attestation I have discussed and was present for the essential components of the discharge history, physical examination, diagnosis, and discharge treatment plan with the resident. I agree with the patient's discharge care as documented by the resident and amended herein by me. Herman Gruber DO. The patient understood all discharge instructions, all questions were answered satisfactorily. The patient was instructed to return to the Emergency Department is symptoms worsened or persisted. Patient back to his baseline O2, felt well, agreeable to go home. I strongly emphasized medication compliance which the patient has not been in the past. Strongly advised smoking cessation. Patient understood and did not have any questions. Although this document has been carefully reviewed, there may still be some phonetic and other typographical errors. These errors are purely grammatical due to imperfections in the software program and should not be construed in any way to compromise the substance of the patient's medical care during this visit.
== END 2025-01-16 12:55 | disposition home or self-care (01) | DRG 190 ==
LOC: SERX 04:58 → SERHOLD 06:01 → S3SX 12:35
PROVIDERS: Student in an Organized Health Care Education/Training Program; Admitting Provider Internal Medicine; Emergency Provider Emergency Medicine; Visit Provider Student in an Organized Health Care Education/Training Program
DX: J44.1 Chronic obstructive pulmonary disease with (acute) exacerbation (principal); J18.9 Pneumonia, unspecified organism; J96.22 Acute and chronic respiratory failure with hypercapnia; J96.21 Acute and chronic respiratory failure with hypoxia; G93.49 Other encephalopathy; I50.32 Chronic diastolic (congestive) heart failure; E87.20 Acidosis, unspecified; J44.0 Chronic obstructive pulmonary disease with (acute) lower respiratory infection; I11.0 Hypertensive heart disease with heart failure; E78.5 Hyperlipidemia, unspecified; I48.0 Paroxysmal atrial fibrillation; E87.5 Hyperkalemia; D53.9 Nutritional anemia, unspecified; E05.90 Thyrotoxicosis, unspecified without thyrotoxic crisis or storm; F17.200 Nicotine dependence, unspecified, uncomplicated; D69.6 Thrombocytopenia, unspecified; R80.9 Proteinuria, unspecified; R81 Glycosuria; Z91.199 Patient's noncompliance with other medical treatment and regimen due to unspecified reason; Z79.899 Other long term (current) drug therapy; Z99.81 Dependence on supplemental oxygen
CPT/HCPCS: 36415; 36600; 71045; 80048; 80053; 81001; 82607; 82746; 82803; 83735; 83880; 84100; 84439; 84443; 84484; 85025; 85046; 85379; 87400; 87634; 87811; 93005; 93225; 94640; 94660; 96365; 96366; 96367; 96372; 96375; 99291; A9270; J0456; J0696; J1643; J1940; J2919; J3475; J7050

== ENCOUNTER 2025-01-21 12:07 | Inpatient (IN) | payer MEDICARE, MEDICAID, SELFPAY ==
[2025-01-21] VITALS (16 sets, daily range): BP systolic 101–154; BP diastolic 48–66; PULSE 61–111; RESP 16–32; TEMP 36.9–37.2; O2SAT 72–100
--- NOTE | 2025-01-21 12:12 | EKG_ITS ---
[facility] Test Date: 2025-01-21 Pat Name: LELAND GUTHRIE Department: Room: - Gender: Male Planning Director: : 1960 Requested By: Kinjal Jacinto Order Number: [id number] Reading MD: Kinjal Jacinto Measurements Intervals [place] Rate: 109 P: 75 [place]: 139 QRS: 75 QRSD: 113 T: 47 QT: 325 QTc: 439 Interpretive Statements SINUS TACHYCARDIA MODERATE INTRAVENTRICULAR CONDUCTION DELAY [110+ ms QRS DURATION] ABNORMAL RHYTHM ECG Compared to ECG 11/21/2024 05:06:00 Intraventricular conduction delay now present Sinus rhythm no longer present Short [place] interval no longer present /store/[id number]
--- NOTE | 2025-01-21 12:13 | PD.EDAMS ---
Altered Mental Status RME/HPI General Chief Complaint: Altered Mental Status Stated Complaint: AMS Time Seen by Provider: 01/21/25 12:12 Arrival date/time: 01/21/25 12:07 RME / HPI RME / HPI narrative: DR. MCMULLEN MAIN ED EVALUATION: 64 year old male with past medical history significant for CHF, COPD on 3 L//min home oxygen presents to the Emergency Department [facility] with complaints of altered mental status and hypoxia. Per EMS, patient was satting on 70% on room air, his home oxygen was off. EMS states that after the patient was placed on 6 L/min the patient's oxygen saturation went up to 98% and the patient became awake and alert. Blood glucose per EMS was 235. Related Data Home Medications ?Medication ?Instructions ?Recorded ?Confirmed furosemide 40 mg tablet 40 mg PO BID 11/08/24 12/16/24 Previous Rx's ?Medication ?Instructions ?Recorded albuterol sulfate 90 mcg/actuation 2 inh inhalation Q6H PRN shortness 09/20/24 breath activated powder inhaler of breath or wheezing #1 ea fluticasone fur. 200 mcg-umeclid 1 inh inhalation Q24H #60 ea 11/10/24 62.5 mcg-vilant 25 mcg inhalat.powder (Trelegy Ellipta) nicotine 21 mg/24 hr daily 21 mg top QDAY PRN Nicotine 12/31/24 transdermal patch Cravings #7 ea Allergies Allergy/AdvReac Type Severity Reaction Status Date / Time No Known Allergies Allergy Verified 01/21/25 12:16 Review of Systems Review of Systems Systems Reviewed: All systems reviewed, normal except as documented Past Medical History Past Medical History NEUROLOGIC: Positive Seizures CARDIAC: Positive Cardiac Disorders, Atrial Fibrillation, Hypercholesterolemia, Congestive Heart Failure and Hypertension RESPIRATORY: Positive Chronic Obstructive Pulmonary Disease (COPD), Asthma and Pneumonia GASTROINTESTINAL: Positive Obesity GENITOURINARY: Negative Renal Disease ENDOCRINE: Negative Diabetes Mellitus Type 1 or Diabetes Mellitus Type 2 HEMATOLOGIC: Negative Sickle Cell Disease PSYCHO/SOCIAL: Positive Recreational Drug Use and Anxiety OTHER HISTORY: Positive Falls; Negative Cancer Surgical History SURGICAL: Positive Open Heart Surgery and Coronary Artery Bypass Graft Social History SMOKING STATUS: Current every day smoker SECOND HAND EXPOSURE: No SUBSTANCE USE: does not use ALCOHOL: Never ED Exam Narrative Physical exam: GENERAL APPEARANCE: alert and oriented, well-developed, well-nourished, in respiratory distress, smells like urine VITALS: All vitals were reviewed and the pulse ox is 96% on 12 L/min via BiPAP. HEENT: Normocephalic, atraumatic; pupils equal, round, reactive to light; EOMI; mucous membranes pink, moist; oropharynx clear NECK: Supple LUNGS: CTABL; no wheezes, no rales, no rhonchi HEART: Regular rate, regular rhythm; normal S1, S2; no murmurs ABDOMEN: non distended; normal BS; soft, no tenderness, no guarding, no rebound; no masses, no organomegaly, no hernia BACK: no CVA tenderness EXTREMITIES: atraumatic; no edema NEUROLOGIC: awake; alert and oriented x4; cranial nerves II-XII grossly intact; no focal sensory or motor deficits PSYCHIATRIC: appropriate mood and affect SKIN: warm, dry, no rashes; There is some skin erythema on the waistline Course Quality Measures none Orders Category Date Time Status Food Handler NOW Care 01/21/25 12:12 Active EKG (ED ONLY) *Do not use* NOW Care 01/21/25 12:[address] head/brain wo con Stat Exams 01/21/25 12:13 Completed EKG (ED Only) Stat Exams 01/21/25 12:12 Draft XR chest 1V portable Stat Exams 01/21/25 12:12 Completed ABG [Arterial Blood Gas] Stat Lab 01/21/25 12:25 Completed Alcohol, Blood Medical Stat Lab 01/21/25 12:52 Completed Ammonia Stat Lab 01/21/25 12:52 Completed B-Type Natriuretic Peptide Stat Lab 01/21/25 12:52 Completed Blood Culture (Lab) Stat Lab 01/21/25 12:42 Received CBC Stat Lab 01/21/25 12:52 Completed Comprehensive Metabolic Panel Stat Lab 01/21/25 12:52 Completed Drug Screen,Urine Stat Lab 01/21/25 12:40 Completed Lactate (Lactic Acid) Stat Lab 01/21/25 12:52 Completed Lipase Stat Lab 01/21/25 12:52 Completed Magnesium Stat Lab 01/21/25 12:52 Completed Partial Thromboplastin Time Stat Lab 01/21/25 12:52 Completed Procalcitonin Stat Lab 01/21/25 12:52 Completed Prothrombin Time with INR Stat Lab 01/21/25 12:52 Completed Troponin I Stat Lab 01/21/25 12:52 Completed Urinalysis Stat Lab 01/21/25 12:38 Completed Urine Culture Stat Lab 01/21/25 12:38 Received BiPAP / CPAP NEEDED RT 01/21/25 13:43 Active Vital Signs Vital signs: Vital Signs Temperature 98.9 F 01/21/25 12:10 Pulse Rate 104 H 01/21/25 12:10 Respiratory Rate 16 01/21/25 12:10 Blood Pressure 154/65 H 01/21/25 12:10 Pulse Oximetry (%) 96 01/21/25 12:10 Oxygen Delivery Method Nasal Cannula 01/21/25 12:10 Oxygen Flow Rate 3 01/21/25 12:10 Procedures -ED Smoking Cessation Time Spent Discussing Smoking Cessation w/Patient (min): 3 Patient Acknowledges Need for Cessation: Yes Additional Comments: The patient was counseled as to the multiple risks to their health from continued use of tobacco products. It was explained that continuing to smoke may lead to multiple short and care home negative health consequences, including but not limited to mouth/esophageal/lung cancer, COPD, and heart disease. The patient states they understand these risks, and also understand the options and resources available to them to help them stop smoking. Nicotine replacement therapy, local hotlines, and local resources were discussed as viable options for helping them stop their tobacco use. The total time spent counseling the patient regarding tobacco cessation was 3 minutes. Altered Mental Status MDM Narrative MDM Narrative:: I, Carole Oshea, am scribing for and in the presence of Dr. Mcmullen. Patient data External records reviewed:: [facility] previous records (Reviewed last admission discharge dated 01/16/25, patient admitted for the following: Acute respiratory failure with hypoxia and hypercapnia) Clinical information provided by:: patient and EMS Social determinants that could affect healthcare access:: other (specify) (tobacco use) Patient has the following chronic illnesses:: CHF, COPD on 3 L//min home oxygen How is presenting disease/condition affected by chronic disease/condition?: exacerbated by Evaluation data The following diagnostics were reviewed and interpreted by me:: lab results, radiology exam(s) and EKG tracing(s) (EKG#1: EKG at 1221 hours. Interpreted by me: sinus rhythm, rate 109, no acute ischemic changes) Lab and/or radiology exams considered but not ordered:: none Interpretation Summary: Procedure(s): CT head/brain wo con Accession Number(s): [id number] cc: Thanh Kevin MD; NO PRIMARY/FAMILY,PHYSICIAN; Kinjal Mcmullen MD~ Examination: CT brain head without contrast. 2-D sagittal coronal reconstructions Date and time of exam:January 21, 2025 1340 hrs. Indications: Altered mental status today CTDI: vol (mGy):52.7 DLP: (mGycm):1115 Technique: Multiple CT axial sections of the brain have been obtained, 5 mm slice thickness. Contrast has not been administered. 2-D sagittal, coronal reconstructions have been obtained Low dose protocols were performed. One or more of the following dose reduction techniques were used; automated exposure control, adjustment of the mA and/or KV according to patient size, use of iterative reconstruction technique. Findings: No significant ventricular enlargement. Intra-axial or extra-axial hemorrhage density is not seen. No mass effect or midline shift Basal cisterns are not remarkable. Fourth ventricle is midline. Cranial vault intact. Impression: Negative for acute hemorrhage, mass effect or midline shift Advise clinical correlation and follow-up accordingly Dictated By: Thanh Kevin MD Procedure(s): XR chest 1V portable Accession Number(s): [id number] cc: Thanh Kevin MD; NO PRIMARY/FAMILY,PHYSICIAN; Kinjal Mcmullen MD~ Examination: AP chest single view Technique one AP portable semiupright chest single view Exam date and time: January 21, 2025, 1300 hrs. Comparison January 15, 2025 Indications: Chest pain beginning one day ago. Findings: Mild opacity left base consistent with pneumonia Mild heart failure, mild enlargement cardiac contour with prominent vascular congestion Moderate osteopenia Impression: Pneumonia left base. Mild heart failure Dictated By: Thanh Kevin MD Medications / Prescriptions Medications or Prescriptions considered but not ordered:: none Medication administrations:: see above if any Consultations Consultation(s) initiated? (list below): Yes Consultation #1 (Physician, Specialty, Details): Discussed test HPI, PMHx, lab, radiology results and/or management with hospitalist. Will admit for further evaluation and management. Accepts patient for admission. Time: 14:23 Diagnosis Differential diagnosis altered mental status: altered mental status, sepsis and other (hypoxia, COPD exacerbation) Most likely diagnosis given after review of the tests above:: COPD exacerbation Hypercapnic respiratory failure Admission Indicated Admission indicated?: indicated Admission Request Was there a request for admission?: Yes Admission Attestation Admission request attestation: Discussed case with [] from Hospitalist service regarding admission. Discussed patients ED course, exam findings, labs, and radiology results. The Hospitalist [agrees,declines] to accept the patient for admission. Disposition Plan Disposition Plan: Admit Discharge Plan Plan Patient Disposition: Admit Acute Care w/in Hospital Prescriptions/Referrals Prescriptions/Med Rec: No Action nicotine 21 mg/24 hr Patch 24 Hour 21 mg top QDAY PRN (Reason: Nicotine Cravings) Qty: 7 0RF albuterol sulfate 90 mcg/actuation aerosol powdr breath activated 2 inh inhalation Q6H PRN (Reason: shortness of breath or wheezing) Qty: 1 3RF furosemide 40 mg tablet 40 mg PO BID Patient Comments: TAKE ONE TABLET BY MOUTH TWICE DAILY A DIURETIC Trelegy Ellipta 200-62.5-25 mcg blister with device 1 inh inhalation Q24H Qty: 60 0RF Referrals: No Primary/Family,Physician [Primary Care Provider] - In 1 week Problem List Clinical Impression: COPD exacerbation, Hypercapnic respiratory failure Patient/Caregiver Discharge Instructions Print Language: Croatian Stand Alone Forms: [facility] Award Info., Patient Portal Info Letter
--- NOTE | 2025-01-21 12:17 | PC.NURSE ---
BRIANNE FROM HOME, AMS, LKW 2 DAYS AGO. GCS 10, SOILED. PT IS ON 3L O2 AT BASELINE, PER EMS PT WAS NOT ON HIS O2 UPON THEIR ARRIVAL AND SPO2 WAS 72% ON RA. EMS PLACED HIM ON 6L AND SPO2 CAME UOP TO 98%. PT HAS HX OF COPD AND HF. PT NOT ANSWERING QUESTIONS CURRENTLY, RESPONDING TO PAINFUL STIMULI AT THIS TIME.
[2025-01-21 12:31] LABS: Base Excess 22 (-3-3); HCO3 54 mEq/L (20-26); Inspired O2, VO2 Liters 5 L/min; O2 Saturation 90 % (91-98); PCO2 112 mmHg (32.0-48.0); PO2 61 mmHg (83-108)
[2025-01-21 12:33] LABS: Allen Test Performed/OK; Puncture Site Right Radial
--- NOTE | 2025-01-21 12:51 | PC.NURSE ---
PT ABLE TO CONTROL ALL 4 EXTREMITIES, NO DEFICITS NOTED
[2025-01-21 12:59] LABS: Collection Type, Urine Clean Catch
[2025-01-21 13:18] LABS: Basophils # (Auto) 0.1 Thou/mm3 (0.0-0.2); Basophils % (Auto) 1 % (0-2.5); Eosinophils % (Auto) 0 % (0-10); Hematocrit 41.7 % (41.0-53.0); Hemoglobin 12.8 g/dL (13.5-16.0); Immature Granulocytes % (Auto) 4 % (0-0); Immature Granulocytes Auto 0.41 Thou/mm3 (0.00-0.00); Lymphocytes # (Auto) 0.6 Thou/mm3 (1.0-4.8); Lymphocytes % (Auto) 6 % (10-50); Mean Corpuscular HGB Conc 30.7 g/dl (31.0-37.0); Mean Corpuscular Hemoglobin 31.1 pg (25.0-35.0); Mean Corpuscular Volume 101 fL (80-100); Monocytes # (Auto) 0.6 Thou/mm3 (0.0-0.8); Monocytes % (Auto) 6 % (0-12); Neutrophils # (Auto) 7.6 Thou/mm3 (1.8-7.7); Neutrophils % (Auto) 82 % (37-80); Nucleated Red Blood Cell % 0 /100 WBC (0); Platelet Count 117 Thou/mm3 (140-440); RDW Standard Deviation 52.4 fL (35.1-43.9); Red Blood Count 4.12 Miln/mm3 (4.50-5.90); White Blood Count 9.2 Thou/mm3 (3.8-10.6)
[2025-01-21 13:21] LABS: Bilirubin,Urine 1+ (Negative); Blood,Urine 1+ (Negative); Color,Urine Yellow (Lt Yel-Yel); Glucose, Urine 2+ (Negative); Hyaline Casts,Urine < 1 /hpf (0-1); Ketones,Urine 3+ (Negative); Leukocyte Esterase,Urine Positive (Negative); Nitrite,Urine Negative (Negative); Protein,Urine 2+ (Neg - Trace); RBC,Urine 2 /hpf (0-3); Specific Gravity,Urine 1.025 (1.001-1.035); Squamous Epithelial Cell,Urine 5 /hpf (0-5); WBC,Urine 15 /hpf (0-5)
[2025-01-21 13:22] LABS: Clarity,Urine Hazy (Clear/Hazy)
[2025-01-21 13:23] LABS: INR 1.1 (0.9-1.3); Partial Thromboplastin Time 21.1 Seconds (22.0-36.0); Prothrombin Time 11.6 Seconds (9.0-12.2)
[2025-01-21 13:27] LABS: Ammonia < 10 uMol/L (11-32)
[2025-01-21 13:34] LABS: Amphetamine/Methamp Scrn,U Negative (Negative); Barbiturate Screen,Urine Negative (Negative); Benzodiazepines Screen,Urine Negative (Negative); Benzoylecgonine Screen, Ur Negative (Negative); Fentanyl Screen,Urine Negative (Negative); Opiate Screen,Urine Negative (Negative); THC Screen,Urine Negative (Negative)
[2025-01-21 13:55] LABS: B-Type Natriuretic Peptide 86 pg/mL (0-100)
[2025-01-21 14:00] LABS: Alanine Aminotransferase 18 U/L (10-49); Albumin/Globulin Ratio 1.8 (1.2-2.2); Alcohol, Blood Medical < 3.0 mg/dL (0-10.0); Alkaline Phosphatase 56 U/L (46-116); Anion Gap 13 (7-16); Aspartate Amino Transferase 21 U/L (0-34); BUN/Creatinine Ratio 30 Ratio (12-20); Bilirubin,Total 0.6 mg/dL (0.3-1.2); Blood Urea Nitrogen 21 mg/dL (9-23); Calcium 9.2 mg/dL (8.3-10.6); Calcium (Corrected) 9.2 mg/dL (8.5-10.1); Carbon Dioxide > 40.0 mMol/L (20.0-31.0); Chloride 89 mMol/L (98-107); Creatinine (Component) 0.7 mg/dL (0.6-1.3); Globulin 2.2 gm/dL (2.3-3.5); Glucose 103 mg/dL (74-106); Lipase 22 U/L (12-53); Magnesium 2.1 mg/dL (1.6-2.6); Osmolality,Calculated 286 (275-295); Potassium 5.4 mMol/L (3.4-5.1); Procalcitonin 0.14 ng/ml (0.0-0.49); Sodium 142 mMol/L (136-145); Total Protein 6.2 gm/dL (5.7-8.2); eGFR > 60 See Note
--- NOTE | 2025-01-21 15:31 | PD.RESHP ---
Documentation for date of: 01/21/25 HPI History of Present Illness Chief complaint: Acute encephalopathy, hypoxia History of present illness: Patient is a 64-year-old male with HTN, HLD, COPD on 3-4 L home O2, HFpEF (last EF 55-60%) and paroxysmal A-fib with recurrent admissions for acute on chronic hypoxic hypercapnic respiratory failure in the setting of COPD exacerbation who was brought in by ambulance for acute encephalopathy and hypoxia. Patient is obtunded therefore history obtained from chart review/ED provider. Apparently patient had not been seen for several days by neighbors and when EMS arrived, he was off his oxygen and saturating at 70% on room air. He was placed on 6 L nasal cannula with improvement of sats to 98%. In the ED, vitals significant for tachycardia. Labs significant for mild macrocytic anemia, thrombocytopenia which is chronic. ABG with pH 7.30, pCO2 112, PaO2 61. CHEM panel showing hyperkalemia and CO2 >40 from compensation. UA consistent with UTI and showing proteins & ketones. CXR showing pneumonia in left base, mild heart failure. Head CT was negative. Blood and urine cultures were sent. Patient was placed on BiPAP and hospitalist team was called for admission. Patient will be admitted for acute on chronic hypoxic hypercapnic respiratory failure in the setting of a COPD exacerbation, possible left base pneumonia, and UTI. Review of Systems Review of Systems ROS Unobtainable: unobtainable due to mental status Past Medical History Past Medical History NEUROLOGIC: Positive Seizures CARDIAC: Positive Cardiac Disorders, Atrial Fibrillation, Hypercholesterolemia, Congestive Heart Failure and Hypertension RESPIRATORY: Positive Chronic Obstructive Pulmonary Disease (COPD), Asthma and Pneumonia GASTROINTESTINAL: Positive Obesity GENITOURINARY: Negative Renal Disease ENDOCRINE: Negative Diabetes Mellitus Type 1 or Diabetes Mellitus Type 2 HEMATOLOGIC: Negative Sickle Cell Disease PSYCHO/SOCIAL: Positive Recreational Drug Use and Anxiety OTHER HISTORY: Positive Falls; Negative Cancer Surgical History SURGICAL: Positive Open Heart Surgery and Coronary Artery Bypass Graft Social History SMOKING STATUS: Current every day smoker SECOND HAND EXPOSURE: No SUBSTANCE USE: does not use ALCOHOL: Never Exam Vital Signs Temp Pulse Resp BP Pulse Ox O2 Del Method O2 Flow Rate 98.7 F 87 32 H 138/61 H 96 BiPAP 12 01/21/25 14:10 01/21/25 14:10 01/21/25 14:10 01/21/25 14:10 01/21/25 14:10 01/21/25 14:10 01/21/25 14:10 FiO2 50 01/21/25 14:10 Narrative Exam Gen: Lethargic, arousable but easily falls asleep, on BiPAP, appears dissheveled HEENT: NCAT, MMM, no LAD CVS: normal S1, S2. RRR. No MRG Resp: Significantly diminished bilaterally Abd: soft, non-tender, mildly obese. BS+ in all 4 quadrants MSK: BLE venous stasis dermatitis Neuro: Unable to fully assess Results: Labs 01/22/25 05:32 01/22/25 05:32 Labs: Short CBC 01/21/25 Range/Units 12:52 WBC 9.2 (3.8-10.6) Thou/mm3 Hgb 12.8 L (13.5-16.0) g/dL Hct 41.7 (41.0-53.0) % Plt Count 117 L (140-440) Thou/mm3 BMP 01/21/25 12:52 Sodium 142 Potassium 5.4 H Chloride 89 L Carbon Dioxide > 40.0 H BUN 21 Creatinine 0.7 Glucose 103 Calcium 9.2 Cardiac Enzymes 01/21/25 Range/Units 12:52 Troponin I 0.040 (0.0-0.045) ng/mL Liver Function 01/21/25 Range/Units 12:52 Total Bilirubin 0.6 (0.3-1.2) mg/dL AST 21 (0-34) U/L ALT 18 (10-49) U/L Alkaline Phosphatase 56 (46-116) U/L Albumin 4.0 (3.4-4.8) gm/dL Urine 01/21/25 Range/Units 12:38 Urine Color Yellow (Lt Yel-Yel) Urine Clarity Hazy (Clear/Hazy) Urine pH 6.0 (5.0-7.0) Ur Specific [place] 1.025 (1.001-1.035) Urine Protein 2+ A (Neg - Trace) Urine Glucose (UA) 2+ A (Negative) ABG Interpretation ABG results: 01/21/25 12:25 ABG pH 7.30 L ABG pCO2 112 H* ABG pO2 61 L ABG HCO3 54 H ABG O2 Saturation 90 L ABG Base Excess 22 H Quality Measures Quality Measures VTE prophylaxis Medications Home Medications and Allergies Home Medications ?Medication ?Instructions ?Recorded ?Confirmed ?Type furosemide 40 mg tablet 40 mg PO BID 11/08/24 12/16/24 History Allergies Allergy/AdvReac Type Severity Reaction Status Date / Time No Known Allergies Allergy Verified 01/21/25 12:16 Visit Medications Acetaminophen (Acetaminophen 325 Mg Tablet) 650 mg PO Q6H PRN PRN Reason: Fever >100.4 or mild pain 1-4 Stop: 02/20/25 15:09 Albuterol/Ipratropium (Albuterol/Ipratropium (Duoneb) Rt Marita 3 Ml Nebu) 3 ml INH Q4HRRT FREDIS Stop: 02/20/25 18:59 Albuterol/Ipratropium (Albuterol/Ipratropium (Duoneb) Rt Marita 3 Ml Nebu) 3 ml INH Q2HR PRN PRN Reason: SHORTNESS OF BREATH OR WHEEZE Stop: 02/20/25 15:09 Heparin Sodium (Porcine) (Heparin Sod Inj 5000 Unit/Ml Vial) 5,000 unit SC Q12HR FREDIS Stop: 02/04/25 20:59 Ceftriaxone Sodium/Dextrose (Rocephin/D5w 1gm Iv Premix) 1 gm in 50 mls @ 100 mls/hr IV QDAY FREDIS Stop: 01/28/25 15:19 Methylprednisolone Sodium Succinate (Methylprednisolone Sod Succ 40 Mg Vial) 40 mg IVP QDAY FREDIS Stop: 01/25/25 09:01 Ondansetron HCl (Ondansetron Inj 2 Mg/Ml Inj 2 Ml) 4 mg IV Q6H PRN; Protocol PRN Reason: NAUSEA OR VOMITING Stop: 02/20/25 15:09 Pantoprazole Sodium (Pantoprazole Inj 40 Mg Vial) 40 mg IVP QDAY FREDIS Stop: 02/20/25 15:14 Sennosides (Senna Tablet) 1 tab PO BID PRN; Protocol PRN Reason: CONSTIPATION Stop: 02/20/25 15:09 Assessment & Plan Plan Patient is a 64-year-old male with HTN, HLD, COPD on 3-4 L home O2, HFpEF (last EF 55-60%) and paroxysmal A-fib with recurrent admissions for acute on chronic hypoxic hypercapnic respiratory failure in the setting of COPD exacerbation who was brought in by ambulance for acute encephalopathy and hypoxia. Patient is obtunded therefore history obtained from chart review/ED provider. Apparently patient had not been seen for several days by neighbors and when EMS arrived, he was off his oxygen and saturating at 70% on room air. He was placed on 6 L nasal cannula with improvement of sats to 98%. Patient will be admitted for acute on chronic hypoxic hypercapnic respiratory failure in the setting of a COPD exacerbation, possible left base pneumonia, and UTI. #Acute encephalopathy, likely secondary to #Acute on chronic hypoxic and hypercapnic respiratory failure #COPD exacerbation #Possible left base pneumonia #Acute respiratory acidosis Found unresponsive and saturating at 70% on room air with improvement to 90% on 6 L nasal cannula ABG showing respiratory acidosis with hypercapnia of 112 CXR concerning for left base pneumonia Blood culture sent -IV Solu-Medrol 40 mg daily x 5 days; DuoNeb every 4 hours, with every 2 hours as needed; Rocephin -Continue BiPAP and reevaluate #UTI UA consistent with UTI Urine culture sent -Rocephin for coverage #Hyperkalemia Monitor on chem panel on am labs Likely to decrease with albuterol treatment #HTN #HFpEF (EF 55 to 60%) #HLD #Paroxysmal A-fib -Will start lasix #Macrocytic anemia #Thrombocytopenia On chart review, noted to be chronic Continue to monitor Dispo: Admit to med telemetry for acute on chronic hypoxic hypercapnic respiratory failure GI PPx: Protonix DVT PPx: Heparin every 12 hours Diet: N.p.o. CODE STATUS: Full code Patient seen and care discussed with my attending Dr. Cintron. Juliette Coreas MD PGY-3 Attending Provider Attestation/Addendum I reviewed labs, imaging, EKG, home medications and prior available records. Face to face evaluation was performed by me. I have personally examined the patient and discussed assessment and plan with the IM team. I reviewed the resident note and agree with the plan with exceptions as below. Acute encephalopathy in the setting of hypoxia and hypercarbia Acute on chronic hypoxic respiratory failure Acute respiratory failure with hypercarbia Noncompliance to medications and BiPAP HFpEF Paroxysmal A-fib Grade 1 obesity Thrombocytopenia Started the patient on BiPAP Follow-up ABG Start IV Lasix Nebs Monitor CBC Monitor I's and O's Ensure medication compliance
[2025-01-21] MEDS: cefTRIAXone/D5w 1gm IV premix 1 GM/50 ML BAG IV (15:34)
[2025-01-21] MEDS: PANTOPRAZOLE INJ 40 MG VIAL IVP (15:34)
[2025-01-21] MEDS: ALBUTEROL RT 2.5 MG/0.5 ML NEBU 10 MG INH (16:02)
[2025-01-21] MEDS: ALBUTEROL/IPRATROPIUM (Duoneb) RT SOL 3 ML NEBU INH ×2 (18:13→22:20)
[2025-01-21 22:49] LABS: Base Excess 24 (-3-3); HCO3 53 mEq/L (20-26); Inspired Oxygen, FIO2 40 %; O2 Saturation 82 % (91-98); PCO2 81 mmHg (32.0-48.0); pH, Arterial 7.43 (7.35-7.45)
[2025-01-21 22:52] LABS: Allen Test Not Performed; PO2 41 mmHg (83-108); Puncture Site Left Radial
[2025-01-22] VITALS (17 sets, daily range): BP systolic 123–159; BP diastolic 58–80; PULSE 59–89; RESP 18–32; TEMP 36.3–37.2; O2SAT 91–100
[2025-01-22] MEDS: HEPARIN SOD INJ 5000 UNIT/ML VIAL SC ×2 (00:03→08:18)
[2025-01-22] MEDS: ALBUTEROL/IPRATROPIUM (Duoneb) RT SOL 3 ML NEBU INH ×6 (02:08→22:59)
[2025-01-22 05:51] LABS: Base Excess, Venous 28 (-3-3); O2 Saturation, Venous 96 % (96-97); PCO2, Venous 79 mmHg (36-56); PO2, Venous 96 mmHg (15-58); pH, Venous 7.47 (7.33-7.66)
[2025-01-22 05:56] LABS: Basophils % (Auto) 0 % (0-2.5); Eosinophils % (Auto) 0 % (0-10); Hematocrit 37.1 % (41.0-53.0); Hemoglobin 11.5 g/dL (13.5-16.0); Immature Granulocytes % (Auto) 2 % (0-0); Immature Granulocytes Auto 0.11 Thou/mm3 (0.00-0.00); Lymphocytes % (Auto) 18 % (10-50); Mean Corpuscular Hemoglobin 30.5 pg (25.0-35.0); Mean Corpuscular Volume 98 fL (80-100); Monocytes # (Auto) 0.4 Thou/mm3 (0.0-0.8); Monocytes % (Auto) 7 % (0-12); Neutrophils # (Auto) 4.2 Thou/mm3 (1.8-7.7); Neutrophils % (Auto) 73 % (37-80); Nucleated Red Blood Cell % 0 /100 WBC (0); Platelet Count 101 Thou/mm3 (140-440); RDW Standard Deviation 50.4 fL (35.1-43.9); Red Blood Count 3.77 Miln/mm3 (4.50-5.90); White Blood Count 5.7 Thou/mm3 (3.8-10.6)
[2025-01-22 06:46] LABS: Anion Gap 11 (7-16); BUN/Creatinine Ratio 27 Ratio (12-20); Blood Urea Nitrogen 19 mg/dL (9-23); Calcium 8.8 mg/dL (8.3-10.6); Carbon Dioxide > 40.0 mMol/L (20.0-31.0); Chloride 89 mMol/L (98-107); Creatinine (Component) 0.7 mg/dL (0.6-1.3); Estimated Creatinine Clearance 122.1 mL/min (>60); Glucose 90 mg/dL (74-106); Magnesium 2.1 mg/dL (1.6-2.6); Osmolality,Calculated 281 (275-295); Sodium 140 mMol/L (136-145); eGFR > 60 See Note
[2025-01-22] MEDS: cefTRIAXone/D5w 1gm IV premix 1 GM/50 ML BAG IV (08:19)
[2025-01-22] MEDS: PANTOPRAZOLE INJ 40 MG VIAL IVP (08:20)
--- NOTE | 2025-01-22 10:48 | ESPR_ITS ---
Documentation for date of: 01/22/25 Subjective Subjective Interval history: Padilla Lowe is a 64-year-old male with a PMHx of HTN, HLD, COPD on 2 L home O2, HFpEF 55 to 60%, and paroxysmal A-fib who was admitted for acute on chronic hypercapnic/hypoxic respiratory failure in setting of COPD. Of note, he has has multiple admissions for COPD exacerbations where he was last discharged on 01/16 and admitted this time for the same. 01/22: No acute overnight events. Seen and examined at bedside with patient on BiPAP and tolerating well. He is following commands and answering questions without difficulty. States that he would like to have a break from BiPAP and is willing to continue again at night. Otherwise, he has no other complaints at this time. Exam Vital Signs Temp Pulse Resp BP Pulse Ox O2 Del Method O2 Flow Rate 97.6 F 67 25 H 146/76 H 97 BiPAP 50 01/22/25 08:00 01/22/25 09:49 01/22/25 09:49 01/22/25 08:00 01/22/25 09:49 01/22/25 08:00 01/22/25 08:00 FiO2 40 01/22/25 09:49 Narrative Exam General: AOx3, laying comfortably in bed on BiPAP HEENT: NC/AT, mucous membranes moist, bilateral sclera anicteric Cardiovascular: regular rate and rhythm, S1/S2 present, no murmurs appreciated Pulmonary: diminished breath sounds bilaterally Abdominal: soft, non-tender, non-distended, no rebound/guarding, normal bowel sounds present Musculoskeletal: normal ROM, no peripheral edema Skin: BLE chronic venous stasis changes Objective Labs 01/23/25 04:29 01/23/25 04:29 Labs: Laboratory Results - last 24 hr 01/21/25 01/21/25 01/21/25 12:25 12:38 12:40 WBC RBC Hgb Hct MCV MCH MCHC RDW Std Deviation Plt Count Neut % (Auto) Lymph % (Auto) [place] % (Auto) Eos % (Auto) Baso % (Auto) Neut # (Auto) Lymph # (Auto) [place] # (Auto) Eos # (Auto) Baso # (Auto) Immature Gran # (Auto) Absolute Nucleated RBC Immature Gran % Nucleated RBC % PT INR APTT Puncture Site Right Radial ABG pH 7.30 L ABG pCO2 112 H* ABG pO2 61 L ABG HCO3 54 H ABG O2 Saturation 90 L ABG Base Excess 22 H VBG pH VBG pCO2 VBG pO2 VBG O2 Sat ([place]) VBG Base Excess Oxygen Liter Flow 5 FiO2 Sodium Potassium Chloride Carbon Dioxide Anion Gap BUN Creatinine Estim Creat Clear Calc eGFR BUN/Creatinine Ratio Glucose Calculated Osmolality Lactic Acid Calcium Corrected Calcium Magnesium Total Bilirubin AST ALT Alkaline Phosphatase Ammonia Troponin I B-Natriuretic Peptide Total Protein Albumin Globulin Albumin/Globulin Ratio Lipase Procalcitonin Ur Collection Type Clean Catch Urine Color Yellow Urine Clarity Hazy Urine pH 6.0 Ur Specific [place] 1.025 Urine Protein 2+ A Urine Glucose (UA) 2+ A Urine Ketones 3+ A Urine Blood 1+ A Urine Nitrite Negative Urine Bilirubin 1+ A Urine Urobilinogen (Auto) 3.0 Ur Leukocyte Esterase Positive Urine RBC 2 Urine WBC 15 H Ur Squamous Epith Cells 5 Urine Bacteria None Hyaline Casts < 1 Urine Opiates Screen Negative Urine Fentanyl Screen Negative Ur Barbiturates Screen Negative U Amphetamin/Meth Scrn Negative U Benzodiazepines Scrn Negative U Cocaine Metab Screen Negative U Marijuana (THC) Screen Negative Ethyl Alcohol 01/21/25 01/21/25 01/22/25 12:52 22:42 05:32 WBC 9.2 5.7 RBC 4.12 L 3.77 L Hgb 12.8 L 11.5 L Hct 41.7 37.1 L MCV 101 H 98 MCH 31.1 30.5 MCHC 30.7 L 31.0 RDW Std Deviation 52.4 H 50.4 H Plt Count 117 L 101 L Neut % (Auto) 82 H 73 Lymph % (Auto) 6 L 18 [place] % (Auto) 6 7 Eos % (Auto) 0 0 Baso % (Auto) 1 0 Neut # (Auto) 7.6 4.2 Lymph # (Auto) 0.6 L 1.0 [place] # (Auto) 0.6 0.4 Eos # (Auto) 0.0 0.0 Baso # (Auto) 0.1 0.0 Immature Gran # (Auto) 0.41 H 0.11 H Absolute Nucleated RBC 0.00 0.00 Immature Gran % 4 H 2 H Nucleated RBC % 0 0 PT 11.6 INR 1.1 APTT 21.1 L Puncture Site Left Radial ABG pH 7.43 D ABG pCO2 81 H* D ABG pO2 41 L* D ABG HCO3 53 H ABG O2 Saturation 82 L ABG Base Excess 24 H VBG pH 7.47 VBG pCO2 79 H VBG pO2 96 H VBG O2 Sat ([place]) 96 VBG Base Excess 28 H Oxygen Liter Flow FiO2 40 Sodium 142 140 Potassium 5.4 H 5.0 Chloride 89 L 89 L Carbon Dioxide > 40.0 H > 40.0 H Anion Gap 13 11 BUN 21 19 Creatinine 0.7 0.7 Estim Creat Clear Calc Not Performed. 122.1 eGFR > 60 > 60 BUN/Creatinine Ratio 30 H 27 H Glucose 103 90 Calculated Osmolality 286 281 Lactic Acid 1.0 Calcium 9.2 8.8 Corrected Calcium 9.2 Magnesium 2.1 2.1 Total Bilirubin 0.6 AST 21 ALT 18 Alkaline Phosphatase 56 Ammonia < 10 L Troponin I 0.040 B-Natriuretic Peptide 86 Total Protein 6.2 Albumin 4.0 Globulin 2.2 L Albumin/Globulin Ratio 1.8 Lipase 22 Procalcitonin 0.14 Ur Collection Type Urine Color Urine Clarity Urine pH Ur Specific [place] Urine Protein Urine Glucose (UA) Urine Ketones Urine Blood Urine Nitrite Urine Bilirubin Urine Urobilinogen (Auto) Ur Leukocyte Esterase Urine RBC Urine WBC Ur Squamous Epith Cells Urine Bacteria Hyaline Casts Urine Opiates Screen Urine Fentanyl Screen Ur Barbiturates Screen U Amphetamin/Meth Scrn U Benzodiazepines Scrn U Cocaine Metab Screen U Marijuana (THC) Screen Ethyl Alcohol < 3.0 ABG Interpretation ABG results: 01/21/25 01/21/25 01/22/25 12:25 22:42 05:32 ABG pH 7.30 L 7.43 D ABG pCO2 112 H* 81 H* D ABG pO2 61 L 41 L* D ABG HCO3 54 H 53 H ABG O2 Saturation 90 L 82 L ABG Base Excess 22 H 24 H VBG pH 7.47 VBG pCO2 79 H VBG pO2 96 H VBG Base Excess 28 H Quality Measures Quality Measures VTE prophylaxis Assessment & Plan Assessment Current Active Medications: Generic Name Dose Route Start Last Admin Trade Name Freq PRN Reason Stop Dose Admin Acetaminophen 650 mg 01/21/25 15:10 Acetaminophen 325 Mg Tablet PO 02/20/25 15:09 Q6H PRN Fever >100.4 or mild pain 1-4 Albuterol/Ipratropium 3 ml 01/21/25 19:00 01/22/25 09:49 Albuterol/Ipratropium (Duoneb) Rt Marita 3 Ml Nebu INH 02/20/25 18:59 3 ml Q4HRRT FREDIS Administration Albuterol/Ipratropium 3 ml 01/21/25 15:10 Albuterol/Ipratropium (Duoneb) Rt Marita 3 Ml Nebu INH 02/20/25 15:09 Q2HR PRN SHORTNESS OF BREATH OR WHEEZE Furosemide 40 mg 01/22/25 11:00 Furosemide 40 Mg Tablet PO 02/21/25 10:59 QDAY FREDIS Heparin Sodium (Porcine) 5,000 unit 01/21/25 21:00 01/22/25 08:18 Heparin Sod Inj 5000 Unit/Ml Vial SC 02/04/25 20:59 5,000 unit Q12HR FREDIS Administration Ceftriaxone Sodium/Dextrose 1 gm in 50 mls @ 100 mls/hr 01/21/25 15:20 01/22/25 08:19 Rocephin/D5w 1gm Iv Premix IV 01/28/25 15:19 100 mls/hr QDAY FREDIS Administration Methylprednisolone Sodium Succinate 40 mg 01/21/25 15:15 01/22/25 08:19 Methylprednisolone Sod Succ 40 Mg Vial IVP 01/25/25 09:01 40 mg QDAY FREDIS Administration Ondansetron HCl 4 mg 01/21/25 15:10 Ondansetron Inj 2 Mg/Ml Inj 2 Ml IV 02/20/25 15:09 Q6H PRN NAUSEA OR VOMITING Protocol Pantoprazole Sodium 40 mg 01/21/25 15:15 01/22/25 08:20 Pantoprazole Inj 40 Mg Vial IVP 02/20/25 15:14 40 mg QDAY FREDIS Administration Sennosides 1 tab 01/21/25 15:10 Senna Tablet PO 02/20/25 15:09 BID PRN CONSTIPATION Protocol Plan Padilla Lowe is a 64-year-old male with a PMHx of HTN, HLD, COPD on 2 L home O2, HFpEF 55 to 60%, and paroxysmal A-fib who was admitted for acute on chronic hypercapnic/hypoxic respiratory failure in setting of COPD. Of note, he has has multiple admissions for COPD exacerbations where he was last discharged on 01/16 and admitted this time for the same. #Acute encephalopathy, likely secondary to #Acute on chronic hypoxic and hypercapnic respiratory failure #COPD exacerbation #Possible left base pneumonia #Acute respiratory acidosis Found unresponsive and saturating at 70% on room air with improvement to 90% on 6 L nasal cannula. Initial ABG showed respiratory acidosis with hypercapnia of 112 and have significantly improved on BiPAP. VBG showed pH 7.47, pCO2 79. CXR concerning for left base pneumonia, blood culture sent. ? Solu-Medrol 40 mg IV daily (01/21-) ? Blood culture 01/21: pending ? DuoNebs every 4 hours scheduled, every 2 hours as needed ? Rocephin 1 g IV daily (01/21-) ? BiPAP at night #Urinary tract infection UA consistent with UTI, urine culture sent ? Urine culture 01/21: pending ? Rocephin as above #Hyperkalemia, resolved Monitor on chem panel on am labs Likely to decrease with albuterol treatment #Hypertension ? Lasix 40 mg PO daily #Paroxysmal A-fib, not on AC [id number] score of 2 Rate controlled ? Continue to monitor #Macrocytic anemia #Thrombocytopenia On chart review, noted to be chronic Continue to monitor Hospital management: Disposition: pending cultures, IV steroids and antibiotics Fluids: not indicated Diet: cardiac Lines: PIV DVT prophylaxis: heparin SC BID GI prophylaxis: pantoprazole 40 mg IV daily CODE STATUS: full code ----- Plan discussed with attending physician Dr. Saida Avendaño MD PGY-1 Internal Medicine Attending Provider Attestation/Addendum I reviewed labs, imaging, EKG, home medications and prior available records. Face to face evaluation was performed by me. I have personally examined the patient and discussed assessment and plan with the IM team. I reviewed the resident note and agree with the plan with exceptions as below. Acute encephalopathy in the setting of hypoxia and hypercarbia, improved Acute on chronic hypoxic respiratory failure, improved Acute respiratory failure with hypercarbia, improved Noncompliance to medications and BiPAP HFpEF, chronic Paroxysmal A-fib Grade 1 obesity Thrombocytopenia Started the patient on BiPAP Follow-up ABG: Showed improvement in the hypercarbia. Follow-up VBG: Showed further improvement in the hypoxia Continue IV Lasix DuoNebs as needed. Resume home inhalers Ceftriaxone for pneumonia/UTI Monitor CBC Monitor I's and O's Patient mentioned that his BiPAP is working intermittently. Discussed with community mental health social worker who will contact the BiPAP company Ordered PT evaluation given the report left lower extremity weakness which is chronic however not at baseline
--- NOTE | 2025-01-22 12:09 | PC.SS ---
Patient Padilla Lowe is a 64 Year old male admitted for COPD Exacerbation. SS met with patient at bedside to discuss discharge plan. Patient utilizes a Wheelchair to assist with ambulation. Patient utilizes oxygen at home at 2L. Prior to admission patient was able to complete ADL's independently. Patient reports his choice of Pharmacy is [facility]. Patient?s medical surrogate decision maker is Daniel meraz . Patient?s PCP is Nickolas Jones. At time of discharge patient will discharge home. Next of Kin: Daniel Meraz D/C Plan: Home
[2025-01-22] MEDS: Furosemide 40 MG TABLET PO (13:45)
[2025-01-22] MEDS: ACETAMINOPHEN 325 MG TABLET 650 MG PO (13:53)
--- NOTE | 2025-01-22 15:52 | PC.SS ---
SS was infomed by Team A that patient was requesting SNF. SS submitted inquiry for SNF through [email or web address]. Pending PT eval.
[2025-01-23] VITALS (15 sets, daily range): BP systolic 132–152; BP diastolic 63–80; PULSE 59–96; RESP 18–24; TEMP 36.1–37.6; O2SAT 90–99
[2025-01-23] MEDS: ALBUTEROL/IPRATROPIUM (Duoneb) RT SOL 3 ML NEBU INH ×3 (03:04→10:45)
[2025-01-23 05:35] LABS: Basophils % (Auto) 0 % (0-2.5); Eosinophils % (Auto) 0 % (0-10); Hematocrit 40.1 % (41.0-53.0); Hemoglobin 12.5 g/dL (13.5-16.0); Immature Granulocytes % (Auto) 3 % (0-0); Immature Granulocytes Auto 0.16 Thou/mm3 (0.00-0.00); Lymphocytes # (Auto) 1.3 Thou/mm3 (1.0-4.8); Lymphocytes % (Auto) 21 % (10-50); Mean Corpuscular HGB Conc 31.2 g/dl (31.0-37.0); Mean Corpuscular Hemoglobin 30.6 pg (25.0-35.0); Mean Corpuscular Volume 98 fL (80-100); Monocytes # (Auto) 0.6 Thou/mm3 (0.0-0.8); Monocytes % (Auto) 9 % (0-12); Neutrophils # (Auto) 4.2 Thou/mm3 (1.8-7.7); Neutrophils % (Auto) 67 % (37-80); Nucleated Red Blood Cell % 0 /100 WBC (0); Platelet Count 95 Thou/mm3 (140-440); RDW Standard Deviation 51.4 fL (35.1-43.9); Red Blood Count 4.08 Miln/mm3 (4.50-5.90); White Blood Count 6.2 Thou/mm3 (3.8-10.6)
[2025-01-23 06:23] LABS: Anion Gap 9 (7-16); BUN/Creatinine Ratio 28 Ratio (12-20); Blood Urea Nitrogen 17 mg/dL (9-23); Calcium 9.6 mg/dL (8.3-10.6); Carbon Dioxide > 40.0 mMol/L (20.0-31.0); Chloride 89 mMol/L (98-107); Creatinine (Component) 0.6 mg/dL (0.6-1.3); Estimated Creatinine Clearance 142.4 mL/min (>60); Glucose 95 mg/dL (74-106); Osmolality,Calculated 277 (275-295); Phosphorous 2.7 mg/dL (2.4-5.1); Sodium 138 mMol/L (136-145); eGFR > 60 See Note
[2025-01-23] MEDS: HEPARIN SOD INJ 5000 UNIT/ML VIAL SC (09:36)
[2025-01-23] MEDS: Furosemide 40 MG TABLET PO (09:36)
[2025-01-23] MEDS: PANTOPRAZOLE INJ 40 MG VIAL IVP (09:38)
[2025-01-23] MEDS: cefTRIAXone/D5w 1gm IV premix 1 GM/50 ML BAG IV (09:38)
--- NOTE | 2025-01-23 11:29 | ESPR_ITS ---
Documentation for date of: 01/23/25 Subjective Subjective Interval history: Padilla Lowe is a 64-year-old male with a PMHx of HTN, HLD, COPD on 2 L home O2, HFpEF 55 to 60%, and paroxysmal A-fib who was admitted for acute on chronic hypercapnic/hypoxic respiratory failure in setting of COPD. Of note, he has has multiple admissions for COPD exacerbations where he was last discharged on 01/16 and admitted this time for the same. 01/22: No acute overnight events. Seen and examined at bedside with patient on BiPAP and tolerating well. He is following commands and answering questions without difficulty. States that he would like to have a break from BiPAP and is willing to continue again at night. Otherwise, he has no other complaints at this time. 01/23: No acute overnight events noted. Seen and examined at bedside and patient states that he was able to tolerate BiPAP overnight without complications. He does not have any complaints at this time, is following commands and answering questions appropriately. He mentions that his BiPAP machine does not work consistently at home and will talk to SW regarding BiPAP machine interrogation. Patient also states that his left lower extremity feels weak and would like to work with PT. Exam Vital Signs Temp Pulse Resp BP Pulse Ox O2 Del Method O2 Flow Rate 97.6 F 77 20 148/80 H 95 Nasal Cannula 4 01/23/25 07:51 01/23/25 10:45 01/23/25 10:45 01/23/25 09:36 01/23/25 10:45 01/23/25 04:00 01/23/25 10:45 FiO2 4 01/23/25 10:45 Narrative Exam General: AOx3, laying comfortably in bed on nasal cannula HEENT: NC/AT, mucous membranes moist, bilateral sclera anicteric Cardiovascular: regular rate and rhythm, S1/S2 present, no murmurs appreciated Pulmonary: diminished breath sounds bilaterally Abdominal: soft, non-tender, non-distended, no rebound/guarding, normal bowel sounds present Musculoskeletal: normal ROM, no peripheral edema Skin: BLE chronic venous stasis changes Objective Labs 01/24/25 05:24 01/24/25 05:24 Labs: Laboratory Results - last 24 hr 01/23/25 04:29 WBC 6.2 RBC 4.08 L Hgb 12.5 L Hct 40.1 L MCV 98 MCH 30.6 MCHC 31.2 RDW Std Deviation 51.4 H Plt Count 95 L Neut % (Auto) 67 Lymph % (Auto) 21 [place] % (Auto) 9 Eos % (Auto) 0 Baso % (Auto) 0 Neut # (Auto) 4.2 Lymph # (Auto) 1.3 [place] # (Auto) 0.6 Eos # (Auto) 0.0 Baso # (Auto) 0.0 Immature Gran # (Auto) 0.16 H Absolute Nucleated RBC 0.00 Immature Gran % 3 H Nucleated RBC % 0 Sodium 138 Potassium 4.0 D Chloride 89 L Carbon Dioxide > 40.0 H Anion Gap 9 BUN 17 Creatinine 0.6 Estim Creat Clear Calc 142.4 eGFR > 60 BUN/Creatinine Ratio 28 H Glucose 95 Calculated Osmolality 277 Calcium 9.6 Phosphorus 2.7 Magnesium 2.0 ABG Interpretation ABG results: 01/21/25 01/21/25 01/22/25 12:25 22:42 05:32 ABG pH 7.30 L 7.43 D ABG pCO2 112 H* 81 H* D ABG pO2 61 L 41 L* D ABG HCO3 54 H 53 H ABG O2 Saturation 90 L 82 L ABG Base Excess 22 H 24 H VBG pH 7.47 VBG pCO2 79 H VBG pO2 96 H VBG Base Excess 28 H Quality Measures Quality Measures VTE prophylaxis Assessment & Plan Assessment Current Active Medications: Generic Name Dose Route Start Last Admin Trade Name Freq PRN Reason Stop Dose Admin Acetaminophen 650 mg 01/21/25 15:10 01/22/25 13:53 Acetaminophen 325 Mg Tablet PO 02/20/25 15:09 650 mg Q6H PRN Administration Fever >100.4 or mild pain 1-4 Albuterol/Ipratropium 3 ml 01/21/25 19:00 01/23/25 10:45 Albuterol/Ipratropium (Duoneb) Rt Marita 3 Ml Nebu INH 02/20/25 18:59 3 ml Q4HRRT FREDIS Administration Albuterol/Ipratropium 3 ml 01/21/25 15:10 Albuterol/Ipratropium (Duoneb) Rt Marita 3 Ml Nebu INH 02/20/25 15:09 Q2HR PRN SHORTNESS OF BREATH OR WHEEZE Furosemide 40 mg 01/22/25 11:00 01/23/25 09:36 Furosemide 40 Mg Tablet PO 02/21/25 10:59 40 mg QDAY FREDIS Administration Heparin Sodium (Porcine) 5,000 unit 01/21/25 21:00 01/23/25 09:36 Heparin Sod Inj 5000 Unit/Ml Vial SC 02/04/25 20:59 5,000 unit Q12HR FREDIS Administration Ceftriaxone Sodium/Dextrose 1 gm in 50 mls @ 100 mls/hr 01/21/25 15:20 01/23/25 10:08 Rocephin/D5w 1gm Iv Premix IV 01/28/25 15:19 Infused QDAY FREDIS Infusion Methylprednisolone Sodium Succinate 40 mg 01/21/25 15:15 01/23/25 09:37 Methylprednisolone Sod Succ 40 Mg Vial IVP 01/25/25 09:01 40 mg QDAY FREDIS Administration Ondansetron HCl 4 mg 01/21/25 15:10 Ondansetron Inj 2 Mg/Ml Inj 2 Ml IV 02/20/25 15:09 Q6H PRN NAUSEA OR VOMITING Protocol Pantoprazole Sodium 40 mg 01/21/25 15:15 01/23/25 09:38 Pantoprazole Inj 40 Mg Vial IVP 02/20/25 15:14 40 mg QDAY FREDIS Administration Sennosides 1 tab 01/21/25 15:10 Senna Tablet PO 02/20/25 15:09 BID PRN CONSTIPATION Protocol Plan Padilla Lowe is a 64-year-old male with a PMHx of HTN, HLD, COPD on 2 L home O2, HFpEF 55 to 60%, and paroxysmal A-fib who was admitted for acute on chronic hypercapnic/hypoxic respiratory failure in setting of COPD. Of note, he has has multiple admissions for COPD exacerbations where he was last discharged on 01/16 and admitted this time for the same. #Acute encephalopathy, likely secondary to #Acute on chronic hypoxic and hypercapnic respiratory failure #COPD exacerbation #Possible left base pneumonia #Acute respiratory acidosis with metabolic compensation Found unresponsive and saturating at 70% on room air with improvement to 90% on 6 L nasal cannula. Initial ABG showed respiratory acidosis with hypercapnia of 112 and have significantly improved on BiPAP. CXR concerning for left base pneumonia, blood culture sent. ? Solu-Medrol 40 mg IV daily (01/21-) ? Blood culture 01/21: NGTD ? Fluticasone/salmeterol q12h and tiotropium daily ? DuoNebs every 2 hours as needed ? Rocephin 1 g IV daily (01/21-) ? BiPAP at night #Urinary tract infection UA consistent with UTI, urine culture sent ? Urine culture 01/21: no growth ? Rocephin as above #Hyperkalemia, resolved Monitor on chem panel on am labs Likely to decrease with albuterol treatment #Hypertension ? Lasix 40 mg PO daily #Paroxysmal A-fib, not on AC [id number] score of 2 Rate controlled ? Continue to monitor #Macrocytic anemia #Thrombocytopenia On chart review, noted to be chronic Continue to monitor Hospital management: Disposition: pending blood cultures, IV steroids and antibiotics Fluids: not indicated Diet: cardiac Lines: PIV DVT prophylaxis: heparin SC BID GI prophylaxis: pantoprazole 40 mg IV daily CODE STATUS: full code ----- Plan discussed with attending physician Dr. Saida Avendaño MD PGY-1 Internal Medicine Attending Provider Attestation/Addendum I reviewed labs, imaging, EKG, home medications and prior available records. Face to face evaluation was performed by me. I have personally examined the patient and discussed assessment and plan with the IM team. I reviewed the resident note and agree with the plan with exceptions as below. Acute encephalopathy in the setting of hypoxia and hypercarbia, improved Acute on chronic hypoxic respiratory failure, improved Acute respiratory failure with hypercarbia, improved Noncompliance to medications and BiPAP HFpEF, chronic Paroxysmal A-fib Grade 1 obesity Thrombocytopenia Started the patient on BiPAP Follow-up ABG: Showed improvement in the hypercarbia. Follow-up VBG: Showed further improvement in the hypoxia Continue IV Lasix DuoNebs as needed. Resume home inhalers Ceftriaxone for pneumonia/UTI Monitor CBC Follow-up cultures Monitor I's and O's Patient mentioned that his BiPAP is working intermittently. Discussed with criminal justice social worker who will contact the BiPAP company Monitor platelet level Ordered PT evaluation given the report left lower extremity weakness which is chronic however not at baseline
--- NOTE | 2025-01-23 12:58 | PC.SS ---
SS follow up note; Pending PT eval, Cultures are negative.
[2025-01-23] MEDS: TIOTROPIUM BR 2.5 MCG 120 PUFF/4 GM INHALER INH (14:36)
[2025-01-23] MEDS: FLUTICASONE/SALMETEROL 250/50 14 DOSE INH 1 PUFF INH (14:37)
--- NOTE | 2025-01-23 14:43 | PC.SS ---
Addendum entered by Kylee Rivera 01/23/25 15:12: SS follow up note; SS was contacted by Trice from [facility] and informed SS that SS would need to submit for auth with Stephen Fel[employer], SS faxed and emailed stephen Feliz for authorization. Original Note: SS follow up note; SS met with patient at bedside to present SNF Choices, patient would like to discharge to [facility], SS contacted Trice from [facility] and she informed SS she would submit authorization.
--- NOTE | 2025-01-23 15:41 | PC.SS ---
SS follow up note; SS attempted to contact [employer] in regards to obtaining auth, SS left Voicemail with call back number.
[2025-01-24] VITALS (12 sets, daily range): BP systolic 112–132; BP diastolic 44–75; PULSE 62–97; RESP 18–20; TEMP 36.6–37.1; O2SAT 92–96
[2025-01-24 06:13] LABS: Basophils % (Auto) 0 % (0-2.5); Eosinophils % (Auto) 0 % (0-10); Hematocrit 37.2 % (41.0-53.0); Hemoglobin 11.9 g/dL (13.5-16.0); Immature Granulocytes % (Auto) 2 % (0-0); Immature Granulocytes Auto 0.11 Thou/mm3 (0.00-0.00); Lymphocytes # (Auto) 1.2 Thou/mm3 (1.0-4.8); Lymphocytes % (Auto) 20 % (10-50); Mean Corpuscular Hemoglobin 30.8 pg (25.0-35.0); Mean Corpuscular Volume 96 fL (80-100); Monocytes # (Auto) 0.6 Thou/mm3 (0.0-0.8); Monocytes % (Auto) 10 % (0-12); Neutrophils # (Auto) 4.1 Thou/mm3 (1.8-7.7); Neutrophils % (Auto) 68 % (37-80); Nucleated Red Blood Cell % 0 /100 WBC (0); Platelet Count 133 Thou/mm3 (140-440); RDW Standard Deviation 49.9 fL (35.1-43.9); Red Blood Count 3.86 Miln/mm3 (4.50-5.90)
[2025-01-24] MEDS: TIOTROPIUM BR 2.5 MCG 120 PUFF/4 GM INHALER INH (06:41)
[2025-01-24] MEDS: FLUTICASONE/SALMETEROL 250/50 14 DOSE INH 1 PUFF INH (06:41)
[2025-01-24 07:01] LABS: Anion Gap 6 (7-16); BUN/Creatinine Ratio 20 Ratio (12-20); Blood Urea Nitrogen 16 mg/dL (9-23); Calcium 8.6 mg/dL (8.3-10.6); Carbon Dioxide > 40.0 mMol/L (20.0-31.0); Chloride 94 mMol/L (98-107); Creatinine (Component) 0.8 mg/dL (0.6-1.3); Estimated Creatinine Clearance 106.8 mL/min (>60); Glucose 117 mg/dL (74-106); Osmolality,Calculated 281 (275-295); Phosphorous 4.1 mg/dL (2.4-5.1); Potassium 3.9 mMol/L (3.4-5.1); Sodium 140 mMol/L (136-145); eGFR > 60 See Note
[2025-01-24] MEDS: cefTRIAXone/D5w 1gm IV premix 1 GM/50 ML BAG IV (09:06)
[2025-01-24] MEDS: PANTOPRAZOLE INJ 40 MG VIAL IVP (09:07)
[2025-01-24] MEDS: HEPARIN SOD INJ 5000 UNIT/ML VIAL SC (09:08)
[2025-01-24] MEDS: Furosemide 40 MG TABLET PO (09:09)
[2025-01-24] MEDS: ALBUTEROL/IPRATROPIUM (Duoneb) RT SOL 3 ML NEBU INH (10:40)
--- NOTE | 2025-01-24 11:35 | PD.RESDS ---
Planned Discharge Date 01/24/25 DS: Providers Provider Date of admission: 01/22/25 14:35 Primary care physician: Physician No Primary/Family Admitting Provider: Jose Cintron MD Attending Provider on Admission: Jose Cintron MD Consults: 01/22/25 01:27 Referral Infection Control Routine Comment: Reason for Infection Control Referral: Readmitted within 30 days 01/22/25 14:18 Referral Physical Therapy Routine Comment: Reports LLE weakness Physician Instructions: Attending Provider on DC: Lai Avendaño MD Discharging Provider: Lai Avendaño MD DS: Diagnosis Problem List Completed Was Problem List Reviewed/Reconciled?: Yes Hospital Course Hospital Course Hospital course: Padilla Lowe is a 64-year-old male with a PMHx of HTN, HLD, COPD on 2 L home O2, HFpEF 55 to 60%, and paroxysmal A-fib who was admitted for hypercapnic encephalopathy and acute on chronic hypercapnic/hypoxic respiratory failure in setting of COPD. Of note, he has has multiple admissions for COPD exacerbations where he was last discharged on 01/16 and admitted this time for the same. Patient does not recall events that led up to admission but per chart review, patient was not seen for several days by neighbors who became worried and called EMS. Upon arrival, patient was off his oxygen and saturating 70% on room air, placed on 6 L nasal cannula and improved to 98%. In ED initial ABG showed pH 7.3, pCO2 112, pO2 61 and placed on BiPAP. He was afebrile, no leukocytosis, and Pro-Dixon negative. Placed on BiPAP overnight, started on steroids, antibiotics, and scheduled DuoNebs. Last VBG showed pH 7.47, pCO2 79, pO2 96. Patient was alert and oriented x 3 following day and tolerated BiPAP overnight well. Patient requested to be evaluated by PT to be discharged to SNF, and eventually was [facility]. Also states that BiPAP machine does not work consistently and SWT look into manufacture and request interrogation of machine. Otherwise, labs back to patient's baseline, vital signs stable with patient on 4 L nasal cannula (at baseline), and thus deemed stable for discharge to SNF. Diagnoses during admission: #Acute encephalopathy, likely secondary to #Acute on chronic hypoxic and hypercapnic respiratory failure #COPD exacerbation #Possible left base pneumonia #Acute respiratory acidosis with metabolic compensation #Urinary tract infection #Hyperkalemia, resolved #Hypertension #Paroxysmal A-fib, not on AC #Macrocytic anemia #Thrombocytopenia Discharge instructions: - Take prednisone 40 mg for 1 more day - Take two tablets of amoxicillin 500 mg three times for one day (total of 6 tablets) - Continue taking all other home medications as prescribed - Encourage to continue using BiPAP at night - Follow-up with your PCP within 1 week of discharge - Return to the ED if symptoms worsen or recur ----- Plan discussed with attending physician Dr. Saida Avendaño MD PGY-1 Internal Medicine Time Spent with Patient Time attestation: Total time spent providing and/or coordinating discharge services: Exam Vital Signs Temp Pulse Resp BP Pulse Ox O2 Del Method O2 Flow Rate 98.4 F 70 18 124/65 92 L Nasal Cannula 4 01/24/25 11:18 01/24/25 11:18 01/24/25 11:18 01/24/25 11:18 01/24/25 11:18 01/24/25 11:18 01/24/25 11:18 FiO2 35 01/23/25 23:36 Narrative Exam General: AOx3, laying comfortably in bed on nasal cannula HEENT: NC/AT, mucous membranes moist, bilateral sclera anicteric Cardiovascular: regular rate and rhythm, S1/S2 present, no murmurs appreciated Pulmonary: diminished breath sounds bilaterally Abdominal: soft, non-tender, non-distended, no rebound/guarding, normal bowel sounds present Musculoskeletal: normal ROM, no peripheral edema Skin: BLE chronic venous stasis changes Discharge Plan Plan Patient Disposition: Xfer Skilled Nsg Fac (SNF) Care Plan Goals: - Take prednisone 40 mg for 1 more day - Take two tablets of amoxicillin 500 mg three times for one day (total of 6 tablets) - Continue taking all other home medications as prescribed - Encourage to continue using BiPAP at night - Follow-up with your PCP within 1 week of discharge - Return to the ED if symptoms worsen or recur Prescriptions/Referrals Prescriptions/Med Rec: Continued nicotine 21 mg/24 hr Patch 24 Hour 21 mg top QDAY PRN (Reason: Nicotine Cravings) Qty: 7 0RF albuterol sulfate 90 mcg/actuation aerosol powdr breath activated 2 inh inhalation Q6H PRN (Reason: shortness of breath or wheezing) Qty: 1 3RF furosemide 40 mg tablet 40 mg PO BID Patient Comments: TAKE ONE TABLET BY MOUTH TWICE DAILY A DIURETIC Trelegy Ellipta 200-62.5-25 mcg blister with device 1 inh inhalation Q24H Qty: 60 0RF Referrals: No Primary/Family,Physician [Primary Care Provider] - Patient/Caregiver Discharge Instructions Print Language: Japanese Stand Alone Forms: [facility] Award Info., Patient Portal Info Letter Discharge Order Discharge Orders: Discharge (Routine); Ordered 01/24/25 Ordered By: Lai Todd Vtmaral Quality Discharge Quality Measures VTE prophylaxis Attestestation Attestation I reviewed labs, imaging, EKG, home medications and prior available records. Face to face evaluation was performed by me. I have personally examined the patient and discussed assessment and plan with the IM team. I reviewed the resident note and agree with the plan with exceptions as below. Acute encephalopathy in the setting of hypoxia and hypercarbia, improved Acute on chronic hypoxic respiratory failure, improved Acute respiratory failure with hypercarbia, improved Noncompliance to medications and BiPAP HFpEF, chronic Paroxysmal A-fib Grade 1 obesity Thrombocytopenia Continue BiPAP at night Follow-up ABG: Showed improvement in the hypercarbia. Follow-up VBG: Showed further improvement in the hypoxia Continue p.o. Lasix upon discharge Continue home COPD inhalers Ceftriaxone for pneumonia/UTI Patient mentioned that his BiPAP is working intermittently. Discussed with geriatric social worker who will contact the BiPAP company to make sure it is working Monitor platelet level as outpatient Ordered PT evaluation given the report left lower extremity weakness which is chronic however not at baseline. Recommended SNF Time spent is 40 minutes. More than 50% of the time was spent on patient education and coordination of care.
== END 2025-01-24 15:45 | disposition skilled nursing facility (03) | DRG 189 ==
LOC: SERX 14:48 → SERHOLD 15:22 → S3SX 23:29
PROVIDERS: Student in an Organized Health Care Education/Training Program; Admitting Provider Student in an Organized Health Care Education/Training Program; Emergency Provider Emergency Medicine; Visit Provider Student in an Organized Health Care Education/Training Program
DX: J96.21 Acute and chronic respiratory failure with hypoxia (principal); J18.9 Pneumonia, unspecified organism; N39.0 Urinary tract infection, site not specified; I50.32 Chronic diastolic (congestive) heart failure; J44.1 Chronic obstructive pulmonary disease with (acute) exacerbation; J44.0 Chronic obstructive pulmonary disease with (acute) lower respiratory infection; G93.49 Other encephalopathy; E87.29 Other acidosis; J96.22 Acute and chronic respiratory failure with hypercapnia; D69.6 Thrombocytopenia, unspecified; D53.9 Nutritional anemia, unspecified; E87.5 Hyperkalemia; I11.0 Hypertensive heart disease with heart failure; E78.5 Hyperlipidemia, unspecified; I48.0 Paroxysmal atrial fibrillation; E66.9 Obesity, unspecified; F17.200 Nicotine dependence, unspecified, uncomplicated; Z91.148 Patient's other noncompliance with medication regimen for other reason; Z68.32 Body mass index [BMI] 32.0-32.9, adult; Z79.899 Other long term (current) drug therapy; Z99.81 Dependence on supplemental oxygen
CPT/HCPCS: 36415; 36600; 70450; 71045; 80048; 80053; 80307; 80320; 81001; 82140; 82803; 83605; 83690; 83735; 83880; 84100; 84145; 84484; 85025; 85610; 85730; 87040; 87081; 87086; 87811; 93005; 93225; 94640; 94644; 94660; 96365; 96375; 97162; 99285; A9270; G0378; J0696; J1643; J2470; J2919; G0480

== ENCOUNTER 2025-02-01 20:06 | Inpatient (IN) | payer MEDICARE, MEDICAID, SELFPAY ==
[2025-02-01 20:14] VITALS: BP 138/73; PULSE 91; RESP 20; TEMP 36.7; O2SAT 98; BMI 29.4
--- NOTE | 2025-02-01 20:24 | PD.EDSOB ---
ED SOB =RME/HPI General Chief Complaint: Shortness of Breath/Dyspnea Stated Complaint: SOB Time Seen by Provider: 02/01/25 20:54 Arrival date/time: 02/01/25 20:06 RME / HPI RME / HPI Narrative: This section includes all my notes and documentations, including HPI, PE, and ED course. Rohit Shabazz MD HPI: 64yo male with a history of COPD, HTN, HLD, aFib [facility]IB[facility] from [facility] presents to the ED for a chief complaint of hypoxia. Per EMS, patient was sent over due to saturations in the 80s. EMS placed the patient on 2L and he went up to 97%. Evidently, the patient is supposed to be on BiPaP, but not available at the facility. He endorses being short of breath for the last 1 hour. Patient denies any worsening cough, chest pain or any other associated symptoms. Patient does smoke cigarettes. No other complaints reported. ROS: All negative except as documented in HPI. Physical Exam: General: Alert and oriented X 1. In moderate respiratory distress. Eyes: Conjunctivae and lids clear. ENT: No nasal congestion. Neck: Supple. Heart: RRR. Lungs: In moderate respiratory distress. Moderate decreased air movement with bilateral wheezing and bilateral rales. Abdomen: Soft and nontender. Legs: No clubbing, cyanosis, edema. Skin: Warm and dry. Neuro: Alert and oriented X 1. Prior to diagnostics, he was given Ativan 2 mg IV due to severe agitation preventing us from performing diagnostics. And Solu-Medrol and DuoNeb as well. I reviewed all diagnostic test results. My interpretation of the EKG is sinus rhythm with no acute ST?T changes. My review of the chest x-ray is moderate vascular congestion and multiple anterior right rib fractures which may be subacute. Blood tests remarkable for D-dimer 1680. ABG showed pH 7.34, pCO2 107, pHCO3 57. COVID/influenza negative. At this point, diagnoses include acute respiratory failure with hypoxia and hypercapnia due to COPD exacerbation. After diagnostics, BiPAP initiated. Significant improvement not noted. I discussed the case with our hospitalist. About the presentation and exam and diagnostics and treatments here. And need of further care in the hospital. Will accept the patient. Rohit Shabazz MD Related Data Home Medications ?Medication ?Instructions ?Recorded ?Confirmed furosemide 40 mg tablet 40 mg PO BID 11/08/24 12/16/24 Previous Rx's ?Medication ?Instructions ?Recorded albuterol sulfate 90 mcg/actuation 2 inh inhalation Q6H PRN shortness 09/20/24 breath activated powder inhaler of breath or wheezing #1 ea fluticasone fur. 200 mcg-umeclid 1 inh inhalation Q24H #60 ea 11/10/24 62.5 mcg-vilant 25 mcg inhalat.powder (Trelegy Ellipta) nicotine 21 mg/24 hr daily 21 mg top QDAY PRN Nicotine 12/31/24 transdermal patch Cravings #7 ea Allergies Allergy/AdvReac Type Severity Reaction Status Date / Time No Known Allergies Allergy Verified 01/21/25 12:16 Review of Systems Review of Systems Systems Reviewed: All systems reviewed, normal except as documented Past Medical History Past Medical History NEUROLOGIC: Positive Seizures CARDIAC: Positive Cardiac Disorders, Atrial Fibrillation, Hypercholesterolemia, Congestive Heart Failure and Hypertension RESPIRATORY: Positive Chronic Obstructive Pulmonary Disease (COPD), Asthma and Pneumonia GASTROINTESTINAL: Positive Obesity GENITOURINARY: Positive Genitourinary Disorders (UTI- 12/28/24 urine culture=staphylococcus sciuru.); Negative Renal Disease ENDOCRINE: Negative Diabetes Mellitus Type 1 or Diabetes Mellitus Type 2 HEMATOLOGIC: Negative Sickle Cell Disease PSYCHO/SOCIAL: Positive Recreational Drug Use and Anxiety OTHER HISTORY: Positive Falls; Negative Cancer Surgical History SURGICAL: Positive Open Heart Surgery and Coronary Artery Bypass Graft Social History SMOKING STATUS: Current every day smoker SECOND HAND EXPOSURE: No SUBSTANCE USE: does not use ED Exam Narrative Physical exam: As noted in HPI. Course Course Course Narrative: CXR is ordered for determining the etiology of shortness of breath. Quality Measures none Orders Category Date Time Status Bedside COVID-19 Antigen Test NOW Care 02/01/25 20:28 Active Bedside Influenza A&B Antigen Test NOW Care 02/01/25 20:28 Completed COVID-19 Screening Questionnaire NOW Care 02/02/25 00:05 Completed Decision to Admit X1 Care 02/02/25 00:05 Completed EKG (ED ONLY) *Do not use* NOW Care 02/01/25 20:29 Completed Saline [Insert IV] NOW Care 02/01/25 20:28 Active Straight [In and Out Catheter] X1 Care 02/01/25 20:28 Active EKG (ED Only) Stat Exams 02/01/25 20:29 Ordered XR chest 1V portable Stat Exams 02/01/25 20:29 Completed ABG [Arterial Blood Gas] Stat Lab 02/01/25 21:04 Completed Arterial Blood Gas Stat Lab 02/01/25 23:10 Completed BNP [B-Type Natriuretic Peptide] Stat Lab 02/01/25 23:08 Completed Blood Culture (Lab) Stat Lab 02/01/25 23:00 Received CBC Stat Lab 02/01/25 23:08 Completed CMP [Comprehensive Metabolic Panel] Stat Lab 02/01/25 23:08 Completed CRP [C-Reactive Protein] Stat Lab 02/01/25 23:08 Completed D-Dimer Stat Lab 02/01/25 23:08 Completed ESR [Sed Rate (ESR)] Stat Lab 02/01/25 23:08 Completed Free T4 (Free Thyroxine) Stat Lab 02/01/25 23:08 Completed Lactate (Lactic Acid) Stat Lab 02/01/25 23:08 Completed Magnesium Stat Lab 02/01/25 23:08 Completed PT [Prothrombin Time with INR] Stat Lab 02/01/25 23:08 Completed PTT [Partial Thromboplastin Time] Stat Lab 02/01/25 23:08 Completed Procalcitonin Stat Lab 02/01/25 23:08 Completed RSV [Respiratory Syncytial Virus Ag] Stat Lab 02/02/25 00:39 Received TSH [Thyroid Stimulating Hormone] Stat Lab 02/01/25 23:08 Completed Troponin I Stat Lab 02/01/25 23:08 Completed UA, C/S IF [Urinalysis, C/S if Indicated] Stat Lab 02/01/25 20:30 Ordered Albuterol/Ipratr Rt Marita [Duoneb Rt Marita] Med 02/01/25 20:28 Discontinued 3 ml INH X1 ONE LORazepam [Ativan Inj] Med 02/01/25 21:43 Discontinued 2 mg IVP X1 ONE MethylPREDNISolone.* [SoluMEDROL Inj] Med 02/01/25 20:28 Discontinued 125 mg IVP X1 ONE BiPAP / CPAP NOW RT 02/01/25 21:12 Active BiPAP / CPAP NOW RT 02/01/25 21:13 Active Vital Signs Vital signs: Vital Signs Temperature 98.1 F 02/01/25 20:14 Pulse Rate 91 02/01/25 20:14 Respiratory Rate 20 02/01/25 20:14 Blood Pressure 138/73 H 02/01/25 20:14 Pulse Oximetry (%) 98 02/01/25 20:14 Oxygen Delivery Method Room Air 02/01/25 20:14 Shortness of Breath / Dyspnea MDM Narrative MDM Narrative:: Scribe Attestation: 02/01/25 Lola Ingram am scribing for and in the presence of Dr. Shabazz. Patient data External records reviewed:: [facility] previous records (Per chart review, patient was admitted here on 01/21/25 for COPD exacerbation.) Clinical information provided by:: patient and EMS Social determinants that could affect healthcare access:: substance use (smokes cigarettes) Patient has the following chronic illnesses:: COPD, HTN, HLD, aFib How is presenting disease/condition affected by chronic disease/condition?: exacerbated by Evaluation data The following diagnostics were reviewed and interpreted by me:: lab results, radiology exam(s) and EKG tracing(s) Lab and/or radiology exams considered but not ordered:: none Interpretation Summary: Acute respiratory failure with hypoxia and hypercapnia Medications / Prescriptions Medications or Prescriptions considered but not ordered:: none Medication administrations:: Medication Administration History Acetaminophen (Acetaminophen 325 Mg Tablet) 650 mg PO Q6H PRN PRN Reason: Fever >101.5 Stop: 03/04/25 00:56 Albuterol/Ipratropium (Albuterol/Ipratropium (Duoneb) Rt Marita 3 Ml Nebu) 3 ml INH Q6HRRT FREDIS Stop: 03/04/25 00:59 Last Admin: 02/02/25 01:32 Dose: 3 ml Documented By: GB Atorvastatin Calcium (Atorvastatin Calcium 20 Mg Tablet) 40 mg PO HS FREDIS Stop: 03/04/25 20:59 Furosemide (Furosemide Inj 10 Mg/Ml 4ml Vial) 20 mg IVP BID FREDIS Stop: 03/04/25 01:29 Heparin Sodium (Porcine) (Heparin Sod Inj 5000 Unit/Ml Vial) 5,000 unit SC Q8HR FREDIS Stop: 02/16/25 05:59 Hydromorphone HCl (Hydromorphone Inj 2 Mg/Ml Vial) 0.5 mg IVP Q6H PRN PRN Reason: PAIN SCALE 4-10(Mod-Sev Stop: 02/07/25 00:56 Magnesium Sulfate (Magnesium Sulfate Ivpb) 2 gm in 50 mls @ 25 mls/hr IV X1 ONE Stop: 02/02/25 03:02 Last Admin: 02/02/25 01:48 Dose: 25 mls/hr Documented By: KENJI Azithromycin 500 mg/ Sodium (Chloride) 250 mls @ 250 mls/hr IV QDAY@0115 [facility] Stop: 02/09/25 01:14 Last Admin: 02/02/25 01:43 Dose: 250 mls/hr Documented By: KENJI Methylprednisolone Sodium Succinate (Methylprednisolone Sod Succ 62.5 Mg/Ml 2ml Vial) 40 mg IVP TID [facility] Stop: 02/09/25 05:59 Ondansetron HCl (Ondansetron Inj 2 Mg/Ml Inj 2 Ml) 4 mg IV Q6H PRN; Protocol PRN Reason: NAUSEA OR VOMITING Stop: 03/04/25 00:56 Discontinued Medications Albuterol/Ipratropium (Albuterol/Ipratropium (Duoneb) Rt Marita 3 Ml Nebu) 3 ml INH X1 ONE Stop: 02/01/25 20:29 Last Admin: 02/01/25 20:45 Dose: 3 ml Documented By: ARTIE Lorazepam (Lorazepam 2 Mg/Ml Vial) 2 mg IVP X1 ONE Stop: 02/01/25 21:44 Last Admin: 02/01/25 21:48 Dose: 2 mg Documented By: KENJI Methylprednisolone Sodium Succinate (Methylprednisolone Sod Succ 62.5 Mg/Ml 2ml Vial) 125 mg IVP X1 ONE Stop: 02/01/25 20:29 Last Admin: 02/01/25 21:18 Dose: 125 mg Documented By: KENJI From nd, treatment included Duoneb, Ativan, Methylprednisolone, and BiPAP. Consultations Consultation(s) initiated? (list below): No Diagnosis Shortness of Breath Differential Diagnosis: acute exacerbation of chronic obstructive airways disease, congestive heart failure, community acquired pneumonia, asthma with exacerbation and pulmonary embolism Most likely diagnosis given after review of the tests above:: Acute respiratory failure with hypoxia and hypercapnia. Admission Indicated Admission indicated?: indicated Explain why admission is indicated or not indicated:: Admission criteria met. Admission Request Was there a request for admission?: Yes Admission Attestation Admission request attestation: Discussed case with Hospitalist service regarding admission. Discussed patients ED course, exam findings, labs, and radiology results. The Hospitalist [agrees] to accept the patient for admission. Disposition Plan Disposition Plan: Admit Critical Care Time Critical Care Time Critical Care Time: Yes Total Critical Care Time (min.): 36 Attestation: Due to a high probability of clinically significant, life threatening deterioration, the patient required my highest level of preparedness to intervene emergently and I personally spent this critical care time directly and personally managing the patient. This critical care time included obtaining a history; examining the patient; ordering and review of studies; arranging urgent treatment with development of a management plan; evaluation of patient's response to treatment; frequent reassessment; and discussions with family and other providers. It was exclusive of separately billable procedures and treating other patients and teaching time. Rohit Shabazz MD Discharge Plan Plan Patient Disposition: Admit Acute Care w/in Hospital Problem List Clinical Impression: Acute respiratory failure with hypoxia and hypercapnia, COPD exacerbation
--- NOTE | 2025-02-01 20:29 | XR_ITS ---
Examination: AP chest single view Technique one AP portable upright chest single view Exam date and time: February 01, [id number] hrs. Comparison January 21, 2025 Indications: Shortness of breath today Findings: Mild prominence of ventricle Moderate vascular congestion Multiple anterior right rib fractures which may be subacute, clinical correlation advised No pneumothorax Impression: Moderate vascular congestion Multiple anterior right rib fractures which may be subacute, clinical correlation advised
--- NOTE | 2025-02-01 20:43 | PC.NURSE ---
Initial contact with pt. Awake no resp distress noted. Denies SOB or chest discomfort.
[2025-02-01] MEDS: ALBUTEROL/IPRATROPIUM (Duoneb) RT SOL 3 ML NEBU INH (20:45)
[2025-02-01 20:50] VITALS: PULSE 86; RESP 21; O2SAT 100
--- NOTE | 2025-02-01 20:58 | PC.NURSE ---
Pt refused for bedside covid and influenza.
[2025-02-01 21:07] LABS: Base Excess 25 (-3-3); HCO3 57 mEq/L (20-26); Inspired O2, VO2 Liters 4 L/min; O2 Saturation 94 % (91-98); PCO2 107 mmHg (32.0-48.0); PO2 79 mmHg (83-108); pH, Arterial 7.34 (7.35-7.45)
[2025-02-01 21:09] LABS: Allen Test Performed/OK; Puncture Site Right Radial
[2025-02-01] MEDS: MethylPREDNISolone SOD SUCC 62.5 MG/ML 2ML VIAL 125 MG IVP (21:18)
--- NOTE | 2025-02-01 21:19 | PC.NURSE ---
pt refused RSV swab. witnessed by 2 RTs and 2 RNs
[2025-02-01 21:29] VITALS: PULSE 91; RESP 12; RESP 31; O2SAT 93
--- NOTE | 2025-02-01 21:45 | PC.NURSE ---
Pt not cooperative with care, Dr. Shabazz informed.
[2025-02-01] MEDS: LORazepam 2 MG/ML VIAL IVP (21:48)
--- NOTE | 2025-02-01 21:52 | PC.NURSE ---
Pt tolerating BIPAP well 09/29, rate 12,Fio2 30%
[2025-02-01 23:00] VITALS: BP 144/69; PULSE 70; RESP 24; O2SAT 91
[2025-02-01 23:13] LABS: Lactate (Lactic Acid) 0.9 mMol/L (0.4-2.0)
[2025-02-01 23:15] LABS: Base Excess 25 (-3-3); HCO3 57 mEq/L (20-26); Inspired Oxygen, FIO2 40 %; O2 Saturation 93 % (91-98); PCO2 110 mmHg (32.0-48.0); PO2 72 mmHg (83-108); pH, Arterial 7.32 (7.35-7.45)
[2025-02-01 23:16] LABS: Allen Test Performed/OK; Puncture Site Right Radial
[2025-02-01 23:18] LABS: Basophils % (Auto) 0 % (0-2.5); Eosinophils % (Auto) 1 % (0-10); Mean Corpuscular Volume 100 fL (80-100); Monocytes # (Auto) 0.3 Thou/mm3 (0.0-0.8); Monocytes % (Auto) 5 % (0-12); Nucleated Red Blood Cell % 0 /100 WBC (0)
[2025-02-01 23:20] LABS: Eosinophils # (Auto) 0.1 Thou/mm3 (0.0-0.5); Hematocrit 42.1 % (41.0-53.0); Hemoglobin 12.9 g/dL (13.5-16.0); Immature Granulocytes % (Auto) 1 % (0-0); Immature Granulocytes Auto 0.04 Thou/mm3 (0.00-0.00); Lymphocytes # (Auto) 0.4 Thou/mm3 (1.0-4.8); Lymphocytes % (Auto) 6 % (10-50); Mean Corpuscular HGB Conc 30.6 g/dl (31.0-37.0); Mean Corpuscular Hemoglobin 30.6 pg (25.0-35.0); Neutrophils # (Auto) 5.7 Thou/mm3 (1.8-7.7); Neutrophils % (Auto) 87 % (37-80); Platelet Count 116 Thou/mm3 (140-440); RDW Standard Deviation 52.1 fL (35.1-43.9); Red Blood Count 4.21 Miln/mm3 (4.50-5.90); White Blood Count 6.5 Thou/mm3 (3.8-10.6)
[2025-02-01 23:26] VITALS: PULSE 85; RESP 24; RESP 25; O2SAT 91
[2025-02-01 23:29] LABS: Sed Rate (ESR) 52 mm/hr (0-20)
[2025-02-01 23:31] LABS: Partial Thromboplastin Time 27.7 Seconds (22.0-36.0); Prothrombin Time 10.5 Seconds (9.0-12.2)
[2025-02-01 23:48] LABS: B-Type Natriuretic Peptide 36 pg/mL (0-100)
[2025-02-01 23:50] LABS: D-Dimer 1680 ng/mL (<600)
[2025-02-01 23:57] LABS: Alanine Aminotransferase 13 U/L (10-49); Albumin/Globulin Ratio 1.7 (1.2-2.2); Alkaline Phosphatase 63 U/L (46-116); Anion Gap 10 (7-16); Aspartate Amino Transferase 12 U/L (0-34); BUN/Creatinine Ratio 24 Ratio (12-20); Bilirubin,Total 0.3 mg/dL (0.3-1.2); Blood Urea Nitrogen 17 mg/dL (9-23); C-Reactive Protein 6.7 mg/dL (0.0-0.9); Calcium 9.5 mg/dL (8.3-10.6); Calcium (Corrected) 9.5 mg/dL (8.5-10.1); Carbon Dioxide > 40.0 mMol/L (20.0-31.0); Chloride 90 mMol/L (98-107); Creatinine (Component) 0.7 mg/dL (0.6-1.3); Estimated Creatinine Clearance 129.6 mL/min (>60); Free T4 (Free Thyroxine) 1.23 ng/dL (0.89-1.76); Globulin 2.4 gm/dL (2.3-3.5); Glucose 142 mg/dL (74-106); Osmolality,Calculated 282 (275-295); Potassium 4.5 mMol/L (3.4-5.1); Procalcitonin 0.15 ng/ml (0.0-0.49); Sodium 140 mMol/L (136-145); Thyroid Stimulating Hormone 0.26 uIU/mL (0.55-4.78); Total Protein 6.4 gm/dL (5.7-8.2); Troponin I < 0.020 ng/mL (0.0-0.045); eGFR > 60 See Note
[2025-02-02] VITALS (18 sets, daily range): BP systolic 129–157; BP diastolic 62–81; PULSE 60–96; RESP 18–28; TEMP 35.9–36.8; O2SAT 88–97; BMI 29.2
[2025-02-02 00:52] LABS: Base Excess 24 (-3-3); HCO3 54 mEq/L (20-26); Inspired Oxygen, FIO2 35 %; O2 Saturation 90 % (91-98); PCO2 91 mmHg (32.0-48.0); PO2 61 mmHg (83-108); pH, Arterial 7.38 (7.35-7.45)
[2025-02-02 00:53] LABS: Allen Test Performed/OK; Puncture Site Left Radial
--- NOTE | 2025-02-02 01:07 | PD.RESHP ---
Documentation for date of: 02/02/25 [facility] History of Present Illness History of present illness: The patient is a 64-year-old male with significant past medical history of primary hypertension, hyperlipidemia, COPD on 2 L home oxygen, HFpEF and paroxysmal A-fib with recurrent admissions for acute COPD exacerbation was brought in by ambulance from his facility with oxygen saturation being in the 80s. During my evaluation, had received 2 mg IV Ativan, and he was somnolent, and hard to arouse. History was obtained from chart review. EMS placed the patient on 2 L and his saturation went up to 97%. The patient is supposed to be on BiPAP, but he has not been on. During presentation, he reported for the past 1 hour, and he denied any worsening cough, chest pain or fever or chills. He still smokes cigarette. In the ED, his vitals were significant for blood pressure 138/73, saturating 98% on 4 L. CBC was fairly stable with hemoglobin 12.9, RDW 52.1, platelet 116, ESR 52, D-dimer 1680. Initial ABG revealed PCO2 107 and pH of 7.34, bicarb 57. Chemistry panel revealed chloride 90, bicarb greater than 40, blood sugar 142, CRP 6.7, Pro-Dixon negative, TSH 0.26 with free T41.23. CXR revealed moderate vascular congestion, multiple anterior right rib fractures likely subacute. PMH: As mentioned above SHX: CABG with open heart surgery Social history: Current smoker, denies alcohol or illicit drug use Allergies: No known drug allergies Medications: To be reconciled The patient was placed on BiPAP, given DuoNeb inhalation, methylprednisone 125 mg IVP x 1, and lorazepam 2 mg IVP x 1, and admitted to telemetry unit for further management of acute on chronic hypoxic hypercapnic respiratory failure secondary to COPD exacerbation. Review of Systems Review of Systems ROS Unobtainable: unobtainable due to mental status Exam Vital Signs Temp Pulse Resp BP Pulse Ox O2 Del Method O2 Flow Rate 98.1 F 69 24 H 157/81 H 88 L BiPAP 4 02/01/25 20:14 02/02/25 00:36 02/02/25 00:36 02/02/25 00:36 02/02/25 00:36 02/02/25 00:36 02/01/25 20:50 FiO2 35 02/02/25 00:36 Narrative Exam General: Elderly gentleman, no acute distress, obtunded, was previously alert and oriented before IV lorazepam HEENT: Moist mucous membranes, oropharynx clear Neck: Supple, No masses, No JVD CVS: S1S2 Regular rate and rhythm, No murmurs, rubs or gallops Lungs: Mild wheeze throughout the lung field, no crackles or rhonchi Abd: Soft, NT/ND, +BS, no organomegaly Ext: No edema, warm and well perfused Skin: No rash Psych: Unable to obtain Results: Labs 02/01/25 23:08 02/01/25 23:08 Labs: Short CBC 02/01/25 Range/Units 23:08 WBC 6.5 (3.8-10.6) Thou/mm3 Hgb 12.9 L (13.5-16.0) g/dL Hct 42.1 (41.0-53.0) % Plt Count 116 L (140-440) Thou/mm3 BMP 02/01/25 23:08 Sodium 140 Potassium 4.5 Chloride 90 L Carbon Dioxide > 40.0 H BUN 17 Creatinine 0.7 Glucose 142 H Calcium 9.5 Cardiac Enzymes 02/01/25 Range/Units 23:08 Troponin I < 0.020 (0.0-0.045) ng/mL Liver Function 02/01/25 Range/Units 23:08 Total Bilirubin 0.3 (0.3-1.2) mg/dL AST 12 (0-34) U/L ALT 13 (10-49) U/L Alkaline Phosphatase 63 (46-116) U/L Albumin 4.0 (3.4-4.8) gm/dL ABG Interpretation ABG results: 02/01/25 02/01/25 02/02/25 21:04 23:10 00:48 ABG pH 7.34 L 7.32 L 7.38 ABG pCO2 107 H* 110 H* 91 H* D ABG pO2 79 L 72 L 61 L ABG HCO3 57 H 57 H 54 H ABG O2 Saturation 94 93 90 L ABG Base Excess 25 H 25 H 24 H Quality Measures Quality Measures none Medications Home Medications and Allergies Home Medications ?Medication ?Instructions ?Recorded ?Confirmed ?Type furosemide 40 mg tablet 40 mg PO BID 11/08/24 12/16/24 History Allergies Allergy/AdvReac Type Severity Reaction Status Date / Time No Known Allergies Allergy Verified 01/21/25 12:16 Visit Medications Acetaminophen (Acetaminophen 325 Mg Tablet) 650 mg PO Q6H PRN PRN Reason: Fever >101.5 Stop: 03/04/25 00:56 Albuterol/Ipratropium (Albuterol/Ipratropium (Duoneb) Rt Marita 3 Ml Nebu) 3 ml INH Q6HRRT FREDIS Stop: 03/04/25 00:59 Heparin Sodium (Porcine) (Heparin Sod Inj 5000 Unit/Ml Vial) 5,000 unit SC Q8HR FREDIS Stop: 02/16/25 05:59 Hydromorphone HCl (Hydromorphone Inj 2 Mg/Ml Vial) 0.5 mg IVP Q6H PRN PRN Reason: PAIN SCALE 4-10(Mod-Sev Stop: 02/07/25 00:56 Magnesium Sulfate (Magnesium Sulfate Ivpb) 2 gm in 50 mls @ 25 mls/hr IV X1 ONE Stop: 02/02/25 03:02 Azithromycin 500 mg/ Sodium (Chloride) 250 mls @ 250 mls/hr IV QDAY@0115 [facility] Stop: 02/09/25 01:14 Methylprednisolone Sodium Succinate (Methylprednisolone Sod Succ 62.5 Mg/Ml 2ml Vial) 40 mg IVP TID [facility] Stop: 02/09/25 05:59 Ondansetron HCl (Ondansetron Inj 2 Mg/Ml Inj 2 Ml) 4 mg IV Q6H PRN; Protocol PRN Reason: NAUSEA OR VOMITING Stop: 03/04/25 00:56 Discontinued Medications Albuterol/Ipratropium (Albuterol/Ipratropium (Duoneb) Rt Marita 3 Ml Nebu) 3 ml INH X1 ONE Stop: 02/01/25 20:29 Last Admin: 02/01/25 20:45 Dose: 3 ml Lorazepam (Lorazepam 2 Mg/Ml Vial) 2 mg IVP X1 ONE Stop: 02/01/25 21:44 Last Admin: 02/01/25 21:48 Dose: 2 mg Methylprednisolone Sodium Succinate (Methylprednisolone Sod Succ 62.5 Mg/Ml 2ml Vial) 125 mg IVP X1 ONE Stop: 02/01/25 20:29 Last Admin: 02/01/25 21:18 Dose: 125 mg Assessment & Plan Plan The patient is a 64-year-old male with significant past medical history of primary hypertension, hyperlipidemia, COPD on 2 L home oxygen, HFpEF and paroxysmal A-fib with recurrent admissions for acute COPD exacerbation was brought in by ambulance from his facility with oxygen saturation being in the 80s. He is admitted to telemetry unit for further management of acute on chronic hypoxic hypercapnic respiratory failure secondary to COPD exacerbation. #Acute on chronic hypoxic hypercapnic respiratory failure 2/2 #COPD exacerbation Likely secondary to noncompliance to BiPAP and smoking currently Initial ABG revealed pH 7.34, pCO2 107, bicarb 57 CXR revealed moderate vascular congestions, no signs of pneumonia Patient received DuoNeb inhalation, methylprednisone 125 mg IVP x 1, and lorazepam 2 mg IVP x 1 - Started on BiPAP - Started on azithromycin 500 Mg daily - DuoNeb every 6 hourly scheduled - Received 2 g of IV magnesium sulfate - Methylprednisone 40 Mg IV 3 times daily - Daily a.m. labs for CBC, CMP and electrolytes; may consider ABG depending on patient's condition #HTN #HFpEF (EF 55 to 60%) #HLD #Paroxysmal A-fib - IV Lasix 20 Mg twice daily, as he takes 40 Mg p.o. twice daily at home - Started on atorvastatin 40 Mg daily at night - Further medications to be reconciled #Macrocytic anemia #Thrombocytopenia On chart review, noted to be chronic - Continue to monitor Health maintenance: Dispo: Admit to telemetry for acute on chronic hypoxic hypercapnic respiratory failure DVT PPx: Heparin every 8 hours Diet: N.p.o. CODE STATUS: Full code The patient's management plan was discussed with my attending physician MD Sushant Britton MD, PGY2 Attending Provider Attestation/Addendum Pt was evaluated and plan formulated together with the housestaff team. I have reviewed the residents note above and agree with most of its content. Please refer to the residents note for additional details.
[2025-02-02] MEDS: ALBUTEROL/IPRATROPIUM (Duoneb) RT SOL 3 ML NEBU INH ×3 (01:32→18:54)
[2025-02-02] MEDS: AZITHROMYCIN INJ 500 MG in SODIUM CHLORIDE 0.9% 250 ML 250 ML 250 MG IV (01:43)
[2025-02-02] MEDS: Magnesium Sulfate 2 GM Ivpb 2 GM/50 ML BAG IV (01:48)
[2025-02-02 01:53] LABS: Respiratory Syncytial Virus Ag Negative (Negative)
[2025-02-02 02:27] LABS: Collection Type, Urine Clean Catch
[2025-02-02 02:42] LABS: Bacteria,Urine Rare; Bilirubin,Urine Negative (Negative); Blood,Urine 2+ (Negative); Clarity,Urine Clear (Clear/Hazy); Color,Urine Yellow (Lt Yel-Yel); Culture Indicated,Urine Not Indicated; Glucose, Urine Negative (Negative); Ketones,Urine Negative (Negative); Leukocyte Esterase,Urine Positive (Negative); Nitrite,Urine Negative (Negative); Protein,Urine 1+ (Neg - Trace); RBC,Urine 7 /hpf (0-3); Specific Gravity,Urine 1.028 (1.001-1.035); Squamous Epithelial Cell,Urine < 1 /hpf (0-5); Urobilinogen,Urine Negative mg/dL (0.0-1.0); WBC,Urine 5 /hpf (0-5)
[2025-02-02] MEDS: FUROSEMIDE INJ 10 MG/ML 4ML VIAL 20 MG IVP ×2 (02:58→08:24)
[2025-02-02] MEDS: HEPARIN SOD INJ 5000 UNIT/ML VIAL SC ×3 (05:08→22:07)
[2025-02-02] MEDS: MethylPREDNISolone SOD SUCC 62.5 MG/ML 2ML VIAL 40 MG IVP (05:08)
[2025-02-02 08:18] LABS: Base Excess 22 (-3-3); HCO3 52 mEq/L (20-26); Inspired Oxygen, FIO2 21 %; O2 Saturation 94 % (91-98); PCO2 80 mmHg (32.0-48.0); PO2 75 mmHg (83-108); pH, Arterial 7.42 (7.35-7.45)
[2025-02-02 08:25] LABS: Allen Test Not Performed; Puncture Site Right Radial
--- NOTE | 2025-02-02 09:38 | PD.RESPRO ---
Documentation for date of: 02/02/25 Subjective Subjective Interval history: Patient examined at bedside. He is wearing BiPAP, currently compliant, able to follow commands. Vitals are stable. Repeat ABGs this morning show improvement in acidosis pH of 7.42. pCO2 80. Continue BiPAP HS and DuoNebs. Will stop azithromycin and steroids as acute presentation most likely due to BiPAP non compliance and he is improving clinically. Anticipate discharge in next 24 hrs. Exam Vital Signs Temp Pulse Resp BP Pulse Ox O2 Del Method O2 Flow Rate 96.6 F L 60 21 H 129/71 97 Room Air 4 02/02/25 08:00 02/02/25 08:24 02/02/25 08:00 02/02/25 08:24 02/02/25 08:00 02/02/25 08:00 02/01/25 20:50 FiO2 45 02/02/25 07:21 Narrative Exam General: Elderly male, No acute distress, wearing BiPAP HEENT: NCAT, No JVD noted. Pupils are equal and reactive to light bilaterally Cardiovascular: Normal S1 and S2. Regular rate and rhythm. Respiratory: Lungs are clear to auscultation bilaterally. No wheezing or crackles heard. Abdomen: Soft, nontender, not distended, normal bowel sounds. Skin: dry, b/L venous stasis dermatitis Musculoskeletal: No gross injuries. Able to move all 4 extremities. No pitting edema Neuro: No focal neuro deficits. Psych: Normal affect and mood Objective Labs 02/02/25 10:15 02/02/25 10:15 Labs: Laboratory Results - last 24 hr 02/01/25 02/01/25 02/01/25 21:04 23:08 23:10 WBC 6.5 RBC 4.21 L Hgb 12.9 L Hct 42.1 MCV 100 MCH 30.6 MCHC 30.6 L RDW Std Deviation 52.1 H Plt Count 116 L Neut % (Auto) 87 H Lymph % (Auto) 6 L Barber % (Auto) 5 Eos % (Auto) 1 Baso % (Auto) 0 Neut # (Auto) 5.7 Lymph # (Auto) 0.4 L Barber # (Auto) 0.3 Eos # (Auto) 0.1 Baso # (Auto) 0.0 Immature Gran # (Auto) 0.04 H Absolute Nucleated RBC 0.00 Immature Gran % 1 H Nucleated RBC % 0 ESR 52 H PT 10.5 INR 1.0 APTT 27.7 D-Dimer 1680 H Puncture Site Right Radial Right Radial ABG pH 7.34 L 7.32 L ABG pCO2 107 H* 110 H* ABG pO2 79 L 72 L ABG HCO3 57 H 57 H ABG O2 Saturation 94 93 ABG Base Excess 25 H 25 H Oxygen Liter Flow 4 FiO2 40 Sodium 140 Potassium 4.5 Chloride 90 L Carbon Dioxide > 40.0 H Anion Gap 10 BUN 17 Creatinine 0.7 Estim Creat Clear Calc 129.6 eGFR > 60 BUN/Creatinine Ratio 24 H Glucose 142 H Calculated Osmolality 282 Lactic Acid 0.9 Calcium 9.5 Corrected Calcium 9.5 Magnesium 2.0 Total Bilirubin 0.3 AST 12 ALT 13 Alkaline Phosphatase 63 Troponin I < 0.020 C-Reactive Prot, Quant 6.7 H B-Natriuretic Peptide 36 Total Protein 6.4 Albumin 4.0 Globulin 2.4 Albumin/Globulin Ratio 1.7 Procalcitonin 0.15 TSH 0.26 L Free T4 1.23 Ur Collection Type Urine Color Urine Clarity Urine pH Ur Specific Downey Urine Protein Urine Glucose (UA) Urine Ketones Urine Blood Urine Nitrite Urine Bilirubin Urine Urobilinogen (Auto) Ur Leukocyte Esterase Urine RBC Urine WBC Ur Squamous Epith Cells Urine Bacteria Ur Culture Indicated? RSV Rapid 02/02/25 02/02/25 02/02/25 00:39 00:48 02:09 WBC RBC Hgb Hct MCV MCH MCHC RDW Std Deviation Plt Count Neut % (Auto) Lymph % (Auto) Barber % (Auto) Eos % (Auto) Baso % (Auto) Neut # (Auto) Lymph # (Auto) Barber # (Auto) Eos # (Auto) Baso # (Auto) Immature Gran # (Auto) Absolute Nucleated RBC Immature Gran % Nucleated RBC % ESR PT INR APTT D-Dimer Puncture Site Left Radial ABG pH 7.38 ABG pCO2 91 H* D ABG pO2 61 L ABG HCO3 54 H ABG O2 Saturation 90 L ABG Base Excess 24 H Oxygen Liter Flow FiO2 35 Sodium Potassium Chloride Carbon Dioxide Anion Gap BUN Creatinine Estim Creat Clear Calc eGFR BUN/Creatinine Ratio Glucose Calculated Osmolality Lactic Acid Calcium Corrected Calcium Magnesium Total Bilirubin AST ALT Alkaline Phosphatase Troponin I C-Reactive Prot, Quant B-Natriuretic Peptide Total Protein Albumin Globulin Albumin/Globulin Ratio Procalcitonin TSH Free T4 Ur Collection Type Clean Catch Urine Color Yellow Urine Clarity Clear Urine pH 6.0 Ur Specific Downey 1.028 Urine Protein 1+ A Urine Glucose (UA) Negative Urine Ketones Negative Urine Blood 2+ A Urine Nitrite Negative Urine Bilirubin Negative Urine Urobilinogen (Auto) Negative Ur Leukocyte Esterase Positive Urine RBC 7 H Urine WBC 5 Ur Squamous Epith Cells < 1 Urine Bacteria Rare Ur Culture Indicated? Not Indicated RSV Rapid Negative 02/02/25 08:11 WBC RBC Hgb Hct MCV MCH MCHC RDW Std Deviation Plt Count Neut % (Auto) Lymph % (Auto) Barber % (Auto) Eos % (Auto) Baso % (Auto) Neut # (Auto) Lymph # (Auto) Barber # (Auto) Eos # (Auto) Baso # (Auto) Immature Gran # (Auto) Absolute Nucleated RBC Immature Gran % Nucleated RBC % ESR PT INR APTT D-Dimer Puncture Site Right Radial ABG pH 7.42 ABG pCO2 80 H* D ABG pO2 75 L ABG HCO3 52 H ABG O2 Saturation 94 ABG Base Excess 22 H Oxygen Liter Flow FiO2 21 Sodium Potassium Chloride Carbon Dioxide Anion Gap BUN Creatinine Estim Creat Clear Calc eGFR BUN/Creatinine Ratio Glucose Calculated Osmolality Lactic Acid Calcium Corrected Calcium Magnesium Total Bilirubin AST ALT Alkaline Phosphatase Troponin I C-Reactive Prot, Quant B-Natriuretic Peptide Total Protein Albumin Globulin Albumin/Globulin Ratio Procalcitonin TSH Free T4 Ur Collection Type Urine Color Urine Clarity Urine pH Ur Specific Downey Urine Protein Urine Glucose (UA) Urine Ketones Urine Blood Urine Nitrite Urine Bilirubin Urine Urobilinogen (Auto) Ur Leukocyte Esterase Urine RBC Urine WBC Ur Squamous Epith Cells Urine Bacteria Ur Culture Indicated? RSV Rapid ABG Interpretation ABG results: 02/01/25 02/01/25 02/02/25 21:04 23:10 00:48 ABG pH 7.34 L 7.32 L 7.38 ABG pCO2 107 H* 110 H* 91 H* D ABG pO2 79 L 72 L 61 L ABG HCO3 57 H 57 H 54 H ABG O2 Saturation 94 93 90 L ABG Base Excess 25 H 25 H 24 H 02/02/25 08:11 ABG pH 7.42 ABG pCO2 80 H* D ABG pO2 75 L ABG HCO3 52 H ABG O2 Saturation 94 ABG Base Excess 22 H Quality Measures Quality Measures none Assessment & Plan Assessment Current Active Medications: Generic Name Dose Route Start Last Admin Trade Name Freq PRN Reason Stop Dose Admin Acetaminophen 650 mg 04/10/25 00:57 Acetaminophen 325 Mg Tablet PO 03/04/25 00:56 Q6H PRN Fever >101.5 Albuterol/Ipratropium 3 ml 02/02/25 01:00 02/02/25 07:18 Albuterol/Ipratropium (Duoneb) Rt Marita 3 Ml Nebu INH 03/04/25 00:59 3 ml Q6HRRT FREDIS Administration Atorvastatin Calcium 40 mg 02/02/25 21:00 Atorvastatin Calcium 20 Mg Tablet PO 03/04/25 20:59 HS FREDIS Furosemide 20 mg 02/02/25 01:30 02/02/25 08:24 Furosemide Inj 10 Mg/Ml 4ml Vial IVP 03/04/25 01:29 20 mg BID FREDIS Administration Heparin Sodium (Porcine) 5,000 unit 02/02/25 06:00 02/02/25 05:08 Heparin Sod Inj 5000 Unit/Ml Vial SC 02/16/25 05:59 5,000 unit Q8HR FREDIS Administration Hydromorphone HCl 0.5 mg 02/02/25 00:57 Hydromorphone Inj 2 Mg/Ml Vial IVP 02/07/25 00:56 Q6H PRN PAIN SCALE 4-10(Mod-Sev Azithromycin 500 mg/ Sodium 250 mls @ 250 mls/hr 02/02/25 01:15 02/02/25 01:43 Chloride IV 02/09/25 01:14 250 mls/hr QDAY@0115 FREDIS Administration Methylprednisolone Sodium Succinate 40 mg 02/02/25 06:00 02/02/25 05:08 Methylprednisolone Sod Succ 62.5 Mg/Ml 2ml Vial IVP 02/09/25 05:59 40 mg TID FREDIS Administration Ondansetron HCl 4 mg 02/02/25 00:57 Ondansetron Inj 2 Mg/Ml Inj 2 Ml IV 03/04/25 00:56 Q6H PRN NAUSEA OR VOMITING Protocol Plan Padilla Lowe is 64-year-old male with significant past medical history of primary hypertension, hyperlipidemia, COPD on 2 L home oxygen, HFpEF and paroxysmal A-fib with recurrent admissions for acute COPD exacerbation was brought in by ambulance from his facility with oxygen saturation being in the 80s. He is admitted to telemetry unit for further management of acute on chronic hypoxic hypercapnic respiratory failure secondary to COPD exacerbation. #Acute on chronic hypoxic hypercapnic respiratory failure 2/2 #COPD exacerbation #Noncompliance Likely secondary to noncompliance to BiPAP and smoking currently Initial ABG revealed pH 7.34, pCO2 107, bicarb 57 CXR revealed moderate vascular congestions, no signs of pneumonia - continue BiPAP HS - stop azithromycin 500 Mg daily - DuoNeb every 6 hourly scheduled - stop Methylprednisone 40 Mg IV TID -monitor ABGs #HTN #HFpEF (EF 55 to 60%) #HLD #Paroxysmal A-fib Takes Lasix 40 Mg p.o. BID at home - IV Lasix 20 Mg BID - atorvastatin 40 Mg daily at night #Macrocytic anemia #Thrombocytopenia On chart review, noted to be chronic - Continue to monitor Health maintenance: Dispo: tele, AHHRF, continue BiPAP HS DVT PPx: Heparin every 8 hours Diet: N.p.o. CODE STATUS: Full code The patient's management plan was discussed with my attending physician Dr. Cintron. Dana Delvalle, PGY-1 Attending Provider Attestation/Addendum I reviewed labs, imaging, EKG, home medications and prior available records. Face to face evaluation was performed by me. I have personally examined the patient and discussed assessment and plan with the IM team. I reviewed the resident note and agree with the plan with exceptions as below. Acute hypoxic respiratory failure Acute respiratory failure with hypercapnia Noncompliance HFpEF Atrial fibrillation with RVR COPD exacerbation Patient is noncompliant with his BiPAP Repeat ABG showed improvement in hypercapnia. Continue BiPAP nightly Counseled the patient regarding the importance of BiPAP compliance Continue systemic corticosteroids and DuoNebs Continue IV Lasix Plan for discharge on 02/03 if stable
[2025-02-02 10:31] LABS: Basophils % (Auto) 0 % (0-2.5); Eosinophils % (Auto) 0 % (0-10); Hematocrit 42.3 % (41.0-53.0); Hemoglobin 13.2 g/dL (13.5-16.0); Immature Granulocytes % (Auto) 1 % (0-0); Immature Granulocytes Auto 0.07 Thou/mm3 (0.00-0.00); Lymphocytes # (Auto) 0.3 Thou/mm3 (1.0-4.8); Lymphocytes % (Auto) 3 % (10-50); Mean Corpuscular HGB Conc 31.2 g/dl (31.0-37.0); Mean Corpuscular Hemoglobin 30.6 pg (25.0-35.0); Mean Corpuscular Volume 98 fL (80-100); Monocytes # (Auto) 0.1 Thou/mm3 (0.0-0.8); Monocytes % (Auto) 1 % (0-12); Neutrophils # (Auto) 8.6 Thou/mm3 (1.8-7.7); Neutrophils % (Auto) 95 % (37-80); Nucleated Red Blood Cell % 0 /100 WBC (0); Platelet Count 125 Thou/mm3 (140-440); RDW Standard Deviation 50.5 fL (35.1-43.9); Red Blood Count 4.31 Miln/mm3 (4.50-5.90); White Blood Count 9.1 Thou/mm3 (3.8-10.6)
[2025-02-02 11:00] LABS: Alanine Aminotransferase 13 U/L (10-49); Albumin, Serum 3.9 gm/dL (3.4-4.8); Albumin/Globulin Ratio 1.6 (1.2-2.2); Alkaline Phosphatase 53 U/L (46-116); Anion Gap 10 (7-16); Aspartate Amino Transferase 11 U/L (0-34); BUN/Creatinine Ratio 24 Ratio (12-20); Bilirubin,Total 0.4 mg/dL (0.3-1.2); Blood Urea Nitrogen 19 mg/dL (9-23); Calcium 9.5 mg/dL (8.3-10.6); Calcium (Corrected) 9.6 mg/dL (8.5-10.1); Carbon Dioxide > 40.0 mMol/L (20.0-31.0); Cardiac Risk Estimate 4.2 RATIO (4.0-6.7); Chloride 90 mMol/L (98-107); Cholesterol 220 mg/dL (132-200); Creatinine (Component) 0.8 mg/dL (0.6-1.3); Globulin 2.4 gm/dL (2.3-3.5); Glucose 163 mg/dL (74-106); HDL Cholesterol 53 mg/dL (40-60); LDL Cholesterol,Calculated 151 mg/dL (0-130); Osmolality,Calculated 285 (275-295); Potassium 4.2 mMol/L (3.4-5.1); Sodium 140 mMol/L (136-145); Total Protein 6.3 gm/dL (5.7-8.2); Triglycerides 78 mg/dL (30-150); eGFR > 60 See Note
[2025-02-02] MEDS: ATORVASTATIN CALCIUM 20 MG TABLET 40 MG PO (20:14)
[2025-02-02] MEDS: FUROSEMIDE INJ 10 MG/ML VIAL 2 ML 20 MG IVP (20:14)
[2025-02-03] VITALS (14 sets, daily range): BP systolic 116–148; BP diastolic 54–90; PULSE 65–122; RESP 15–28; TEMP 36.2–37.2; O2SAT 88–99; BMI 30.7; BMI 13.0
[2025-02-03] MEDS: ALBUTEROL/IPRATROPIUM (Duoneb) RT SOL 3 ML NEBU INH ×4 (01:56→18:10)
[2025-02-03] MEDS: HEPARIN SOD INJ 5000 UNIT/ML VIAL SC ×3 (05:33→21:18)
[2025-02-03 05:56] LABS: Basophils % (Auto) 0 % (0-2.5); Eosinophils % (Auto) 0 % (0-10); Hematocrit 39.7 % (41.0-53.0); Hemoglobin 12.6 g/dL (13.5-16.0); Immature Granulocytes % (Auto) 1 % (0-0); Immature Granulocytes Auto 0.12 Thou/mm3 (0.00-0.00); Lymphocytes # (Auto) 1.5 Thou/mm3 (1.0-4.8); Lymphocytes % (Auto) 14 % (10-50); Mean Corpuscular HGB Conc 31.7 g/dl (31.0-37.0); Mean Corpuscular Hemoglobin 31.3 pg (25.0-35.0); Mean Corpuscular Volume 99 fL (80-100); Monocytes # (Auto) 0.5 Thou/mm3 (0.0-0.8); Monocytes % (Auto) 5 % (0-12); Neutrophils # (Auto) 8.3 Thou/mm3 (1.8-7.7); Neutrophils % (Auto) 79 % (37-80); Nucleated Red Blood Cell % 0 /100 WBC (0); Platelet Count 146 Thou/mm3 (140-440); RDW Standard Deviation 50.8 fL (35.1-43.9); Red Blood Count 4.02 Miln/mm3 (4.50-5.90); White Blood Count 10.5 Thou/mm3 (3.8-10.6)
[2025-02-03 06:33] LABS: Alanine Aminotransferase 11 U/L (10-49); Albumin/Globulin Ratio 1.8 (1.2-2.2); Alkaline Phosphatase 48 U/L (46-116); Anion Gap 11 (7-16); Aspartate Amino Transferase < 10 U/L (0-34); BUN/Creatinine Ratio 28 Ratio (12-20); Bilirubin,Total 0.4 mg/dL (0.3-1.2); Blood Urea Nitrogen 22 mg/dL (9-23); Calcium 9.4 mg/dL (8.3-10.6); Calcium (Corrected) 9.4 mg/dL (8.5-10.1); Carbon Dioxide > 40.0 mMol/L (20.0-31.0); Chloride 88 mMol/L (98-107); Creatinine (Component) 0.8 mg/dL (0.6-1.3); Globulin 2.2 gm/dL (2.3-3.5); Glucose 116 mg/dL (74-106); Magnesium 1.9 mg/dL (1.6-2.6); Osmolality,Calculated 281 (275-295); Phosphorous 2.7 mg/dL (2.4-5.1); Potassium 3.6 mMol/L (3.4-5.1); Sodium 139 mMol/L (136-145); Total Protein 6.2 gm/dL (5.7-8.2); eGFR > 60 See Note
[2025-02-03] MEDS: FUROSEMIDE INJ 10 MG/ML VIAL 2 ML 20 MG IVP ×2 (08:51→21:18)
--- NOTE | 2025-02-03 10:24 | PC.SS ---
Follow up note: Pt is from [facility] and will return upon dc. Pt is currently on 5 liters of O2.
--- NOTE | 2025-02-03 11:20 | PD.RESDS ---
Planned Discharge Date 02/03/25 DS: Providers Provider Date of admission: 02/02/25 00:21 Primary care physician: Nickolas Jones MD Admitting Provider: David Scott MD Attending Provider on Admission: Jose Cintron MD Consults: 02/02/25 18:26 [facility] Referral - Knowledge Deficit Routine Comment: Positive screening for knowledge deficit needs. [facility] Referral - Nutrition Routine Comment: Positive screening for nutrition needs. [facility] Referral - Transportation Routine Comment: Positive screening for transportation needs. [facility] Referral - Utilities Routine Comment: Positive screening for utility assistance needs. Attending Provider on DC: Vernon Sanderson MD Discharging Provider: Vernon Sanderson MD Hospital Course Hospital Course Hospital course: Patient examined at bedside. He is wearing BiPAP, currently compliant, able to follow commands. Vitals are stable. Repeat ABGs this morning show improvement in acidosis pH of 7.42. pCO2 80. Continue BiPAP HS and DuoNebs. Will stop azithromycin and steroids as acute presentation most likely due to BiPAP non compliance and he is improving clinically. Anticipate discharge in next 24 hrs. Time Spent with Patient Time attestation: Total time spent providing and/or coordinating discharge services: Exam Vital Signs Temp Pulse Resp BP Pulse Ox O2 Del Method O2 Flow Rate 98.0 F 86 18 116/76 88 L Nasal Cannula 5 02/03/25 07:03 02/03/25 08:51 02/03/25 07:03 02/03/25 08:51 02/03/25 07:03 02/03/25 07:03 02/03/25 07:03 FiO2 65 02/03/25 04:00 Discharge Plan Plan Patient Disposition: Xfer Skilled Nsg Fac (SNF) Patient condition on transfer: Stable Prescriptions/Referrals Prescriptions/Med Rec: New atorvastatin 20 mg Tablet 40 mg PO HS 30 Days Qty: 60 0RF ipratropium-albuterol 0.5 mg-3 mg(2.5 mg base)/3 mL Solution For Nebulization 3 ml INH Q6HRRT PRN (Reason: SOB/Wheeze) 30 Days Qty: 3 0RF Continued nicotine 21 mg/24 hr Patch 24 Hour 21 mg top QDAY PRN (Reason: Nicotine Cravings) Qty: 7 0RF albuterol sulfate 90 mcg/actuation aerosol powdr breath activated 2 inh inhalation Q6H PRN (Reason: shortness of breath or wheezing) Qty: 1 3RF furosemide 40 mg tablet 40 mg PO BID Patient Comments: TAKE ONE TABLET BY MOUTH TWICE DAILY A DIURETIC Trelegy Ellipta 200-62.5-25 mcg blister with device 1 inh inhalation Q24H Qty: 60 0RF Referrals: Nickolas Jones MD [Primary Care Provider] - Patient/Caregiver Discharge Instructions Discharge Activity: as per physical therapy Other Discharge Activity Instructions:: Use BiPAP every night as tolerated, maintain good compliance. Continue atorvastatin 40 mg every night. Continue Trelegy Ellipta for COPD, use breathing treatments with DuoNeb as needed Continue Lasix 40 mg p.o. twice daily Continue nicotine patches as needed, recommended to quit smoking. Follow-up with primary care physician in 1 week. Return to ED if symptoms return or worsen. Other Discharge Diet Instructions: Cardiac diet, fluid restriction less than 2 L daily Education Materials: Discharge Instructions: COPD, COPD: Using Inhalers, What Is a BPAP?, Using a BPAP Print Language: Slovak Stand Alone Forms: [employer] Award Info., Patient Portal Info Letter Discharge Order Discharge Orders: Discharge (Routine); Ordered 02/03/25 Ordered By: Matteo Patel MD Attestestation Attestation I reviewed labs, imaging, EKG, home medications and prior available records. Face to face evaluation was performed by me. I have personally examined the patient and discussed assessment and plan with the IM team. I reviewed the resident note and agree with the plan with exceptions as below. Acute encephalopathy, resolved Acute hypoxic respiratory failure Acute respiratory failure with hypercapnia Noncompliance HFpEF Atrial fibrillation with RVR COPD exacerbation Patient is noncompliant with his BiPAP Repeat ABG showed improvement in hypercapnia. Continue BiPAP nightly Counseled the patient regarding the importance of BiPAP compliance Continue home COPD inhalers and avoid tobacco use Continue oral Lasix May discharge to SNF Time spent is 40 minutes. More than 50% of the time was spent on patient education and coordination of care.
--- NOTE | 2025-02-03 11:38 | PC.SS ---
Addendum entered by Farheen Bynum 02/03/25 12:04: SS has faxed d/c summary and inquiry to patient's health insurance, Rama Johnson fax: [phone]. SS has also sent inquiry to [facility] using [employer] [facility]. Original Note: SS was informed by Trice at [facility] pt is requiring insurance authorization and PT evaluation.
--- NOTE | 2025-02-03 11:50 | CHAP ---
Patient was visited by the Spiritual Care Volunteer who prayed for them. (Volunteer was in the hospital from 11:05-11:50.)
--- NOTE | 2025-02-03 14:34 | PC.SS ---
Addendum entered by Farheen Bynum 02/03/25 15:36: SS was informed by Trice at [facility] they have obtained insurance authorization. Per, Leroy Rivers pt is currenty on room air. Per Trice at [facility], they are unable to manage bipap over 60% setting (prefer around 40%). Physicians are aware and will d/c pt tomorrow. Trice from [facility] is aware and is requesting updated bipap settings be sent tomorrow. Addendum entered by Farheen Bynum 02/03/25 15:28: SS was informed by Trice at [facility] they have obtained insurance authorization. Per Leroy Rivers pt is currently on room air. Per Trice at [facility], they are unable to manage bipap over 60% sitting (prefer around 40% sitting). Physicians are aware and will dc pt tomorrow. Trice from [facility] is aware and is requesting updated bipap settings be sent. Original Note: SS called Rama Johnson and was transferred to [facility] transferred call to [facility]. [facility] states she has not been with Rama Johnson for 6months. SS called Rama Johnson again and spoke to Alejo who state he is out pt and transferred call to in patient. I attempted Laura ext [phone] and Sabrina at [phone] and both numbers were unavailable. SS contacted Trice at [facility] who was able to speak with Sabrina and she is aware pt is ready for d/c today and waiting for insurance authorization. SS was able to speak with Sabrina from [place] who explained inquiry has been received and she is reviewing information and she has been contacted by [facility]. Insurance authorization is pending.
--- NOTE | 2025-02-03 15:16 | PD.RESPRO ---
Documentation for date of: 02/03/25 Subjective Subjective Interval history: No significant overnight events. We will continue nightly BiPAP. Patient was counseled on importance of BiPAP compliancy. Per SNF, patient needs to be on < 65% FiO2 and < 5 L oxygen flow rate in order to be transferred. We will wean down oxygen as tolerated. Expected to discharge patient within 24 to 48 hours. Exam Vital Signs Temp Pulse Resp BP Pulse Ox O2 Del Method O2 Flow Rate 97.6 F 85 20 148/90 H 97 Nasal Cannula 4 02/03/25 11:19 02/03/25 13:37 02/03/25 13:37 02/03/25 11:19 02/03/25 13:37 02/03/25 11:19 02/03/25 13:37 FiO2 65 02/03/25 04:00 Narrative Exam General: Elderly male, No acute distress, wearing BiPAP HEENT: NCAT, No JVD noted. Pupils are equal and reactive to light bilaterally Cardiovascular: Normal S1 and S2. Regular rate and rhythm. Respiratory: Lungs are clear to auscultation bilaterally. No wheezing or crackles heard. Abdomen: Soft, nontender, not distended, normal bowel sounds. Skin: dry, b/L venous stasis dermatitis Musculoskeletal: No gross injuries. Able to move all 4 extremities. No pitting edema Neuro: No focal neuro deficits. Psych: Normal affect and mood Objective Labs 02/03/25 04:40 02/03/25 04:40 Labs: Laboratory Results - last 24 hr 02/03/25 04:40 WBC 10.5 RBC 4.02 L Hgb 12.6 L Hct 39.7 L MCV 99 MCH 31.3 MCHC 31.7 RDW Std Deviation 50.8 H Plt Count 146 Neut % (Auto) 79 Lymph % (Auto) 14 [place] % (Auto) 5 Eos % (Auto) 0 Baso % (Auto) 0 Neut # (Auto) 8.3 H Lymph # (Auto) 1.5 [place] # (Auto) 0.5 Eos # (Auto) 0.0 Baso # (Auto) 0.0 Immature Gran # (Auto) 0.12 H Absolute Nucleated RBC 0.00 Immature Gran % 1 H Nucleated RBC % 0 Sodium 139 Potassium 3.6 D Chloride 88 L Carbon Dioxide > 40.0 H Anion Gap 11 BUN 22 Creatinine 0.8 Estim Creat Clear Calc 113.0 eGFR > 60 BUN/Creatinine Ratio 28 H Glucose 116 H Calculated Osmolality 281 Calcium 9.4 Corrected Calcium 9.4 Phosphorus 2.7 Magnesium 1.9 Total Bilirubin 0.4 AST < 10 ALT 11 Alkaline Phosphatase 48 Total Protein 6.2 Albumin 4.0 Globulin 2.2 L Albumin/Globulin Ratio 1.8 ABG Interpretation ABG results: 02/01/25 02/01/25 02/02/25 21:04 23:10 00:48 ABG pH 7.34 L 7.32 L 7.38 ABG pCO2 107 H* 110 H* 91 H* D ABG pO2 79 L 72 L 61 L ABG HCO3 57 H 57 H 54 H ABG O2 Saturation 94 93 90 L ABG Base Excess 25 H 25 H 24 H 02/02/25 08:11 ABG pH 7.42 ABG pCO2 80 H* D ABG pO2 75 L ABG HCO3 52 H ABG O2 Saturation 94 ABG Base Excess 22 H Quality Measures Quality Measures none Assessment & Plan Assessment Current Active Medications: Generic Name Dose Route Start Last Admin Trade Name Freq PRN Reason Stop Dose Admin Acetaminophen 650 mg 02/02/25 00:57 Acetaminophen 325 Mg Tablet PO 03/04/25 00:56 Q6H PRN Fever >101.5 Albuterol/Ipratropium 3 ml 02/02/25 01:00 02/03/25 13:37 Albuterol/Ipratropium (Duoneb) Rt Marita 3 Ml Nebu INH 03/04/25 00:59 3 ml Q6HRRT FREDIS Administration Atorvastatin Calcium 40 mg 02/02/25 21:00 02/02/25 20:14 Atorvastatin Calcium 20 Mg Tablet PO 03/04/25 20:59 40 mg HS FREDIS Administration Furosemide 20 mg 02/02/25 21:00 02/03/25 08:51 Furosemide Inj 10 Mg/Ml Vial 2 Ml IVP 03/04/25 01:29 20 mg BID FREDIS Administration Heparin Sodium (Porcine) 5,000 unit 02/02/25 06:00 02/03/25 13:33 Heparin Sod Inj 5000 Unit/Ml Vial SC 02/16/25 05:59 5,000 unit Q8HR FREDIS Administration Hydromorphone HCl 0.5 mg 02/02/25 00:57 Hydromorphone Inj 2 Mg/Ml Vial IVP 02/07/25 00:56 Q6H PRN PAIN SCALE 4-10(Mod-Sev Ondansetron HCl 4 mg 02/02/25 00:57 Ondansetron Inj 2 Mg/Ml Inj 2 Ml IV 03/04/25 00:56 Q6H PRN NAUSEA OR VOMITING Protocol Plan Padilla Lowe is 64-year-old male with significant past medical history of primary hypertension, hyperlipidemia, COPD on 2 L home oxygen, HFpEF and paroxysmal A-fib with recurrent admissions for acute COPD exacerbation was brought in by ambulance from his facility with oxygen saturation being in the 80s. He is admitted to telemetry unit for further management of acute on chronic hypoxic hypercapnic respiratory failure secondary to COPD exacerbation. #Acute on chronic hypoxic hypercapnic respiratory failure 11/27 #COPD exacerbation #Noncompliance Likely secondary to noncompliance to BiPAP and smoking currently Initial ABG revealed pH 7.34, pCO2 107, bicarb 57 CXR revealed moderate vascular congestions, no signs of pneumonia Discontinued Azithro and Methylprednisone on 02/03/24 Plan: - Continue BiPAP HS - DuoNeb every 6 hourly as needed #HTN #HFpEF (EF 55 to 60%) #HLD #Paroxysmal A-fib Takes Lasix 40 Mg p.o. BID at home Plan: - IV Lasix 20 Mg BID - Atorvastatin 40 Mg daily at night #Macrocytic anemia #Thrombocytopenia On chart review, noted to be chronic - Continue to monitor Health maintenance: Dispo: tele, AHHRF, continue BiPAP HS DVT PPx: Heparin every 8 hours Diet: N.p.o. CODE STATUS: Full code This patient care was discussed with my attending Dr. Saida Sanderson MD PGY-2 Disclaimer: Minor errors in transcription specialist may be present since this note was dictated by speech recognition software. Attending Provider Attestation/Addendum I reviewed labs, imaging, EKG, home medications and prior available records. Face to face evaluation was performed by me. I have personally examined the patient and discussed assessment and plan with the IM team. I reviewed the resident note and agree with the plan with exceptions as below. Acute hypoxic respiratory failure Acute respiratory failure with hypercapnia Noncompliance HFpEF Atrial fibrillation with RVR COPD exacerbation He is on 5 L in the a.m. Patient is noncompliant with his BiPAP Repeat ABG showed improvement in hypercapnia. Continue BiPAP nightly Counseled the patient regarding the importance of BiPAP compliance Continue DuoNebs as needed. Transition to home COPD inhalers upon discharge Continue IV Lasix. Transition to oral Lasix upon discharge Discussed with social work msw: Will need further oxygen requirements prior to discharge. Likely tomorrow 02/04
[2025-02-03] MEDS: ATORVASTATIN CALCIUM 20 MG TABLET 40 MG PO (21:18)
[2025-02-04] VITALS (9 sets, daily range): BP systolic 118–129; BP diastolic 62–73; PULSE 66–92; RESP 16–22; TEMP 36.2–36.7; O2SAT 90–99; BMI 27.6
[2025-02-04] MEDS: ALBUTEROL/IPRATROPIUM (Duoneb) RT SOL 3 ML NEBU INH ×3 (00:30→12:42)
--- NOTE | 2025-02-04 00:51 | PC.NURSE ---
Pt refusing BIPAP at this moment, education provided to patient by RT and nurse.
[2025-02-04] MEDS: HEPARIN SOD INJ 5000 UNIT/ML VIAL SC ×2 (05:01→13:25)
[2025-02-04 05:36] LABS: Basophils % (Auto) 0 % (0-2.5); Eosinophils % (Auto) 1 % (0-10); Hematocrit 40.9 % (41.0-53.0); Hemoglobin 12.7 g/dL (13.5-16.0); Immature Granulocytes % (Auto) 1 % (0-0); Immature Granulocytes Auto 0.09 Thou/mm3 (0.00-0.00); Lymphocytes # (Auto) 1.6 Thou/mm3 (1.0-4.8); Lymphocytes % (Auto) 21 % (10-50); Mean Corpuscular HGB Conc 31.1 g/dl (31.0-37.0); Mean Corpuscular Hemoglobin 30.8 pg (25.0-35.0); Mean Corpuscular Volume 99 fL (80-100); Monocytes # (Auto) 0.5 Thou/mm3 (0.0-0.8); Monocytes % (Auto) 6 % (0-12); Neutrophils # (Auto) 5.1 Thou/mm3 (1.8-7.7); Neutrophils % (Auto) 70 % (37-80); Nucleated Red Blood Cell % 0 /100 WBC (0); Platelet Count 138 Thou/mm3 (140-440); Red Blood Count 4.13 Miln/mm3 (4.50-5.90); White Blood Count 7.2 Thou/mm3 (3.8-10.6)
[2025-02-04 06:21] LABS: Alanine Aminotransferase 9 U/L (10-49); Albumin, Serum 3.9 gm/dL (3.4-4.8); Albumin/Globulin Ratio 1.7 (1.2-2.2); Alkaline Phosphatase 50 U/L (46-116); Anion Gap 10 (7-16); Aspartate Amino Transferase 11 U/L (0-34); BUN/Creatinine Ratio 26 Ratio (12-20); Bilirubin,Total 0.4 mg/dL (0.3-1.2); Blood Urea Nitrogen 23 mg/dL (9-23); Calcium 9.4 mg/dL (8.3-10.6); Calcium (Corrected) 9.5 mg/dL (8.5-10.1); Carbon Dioxide > 40.0 mMol/L (20.0-31.0); Chloride 92 mMol/L (98-107); Creatinine (Component) 0.9 mg/dL (0.6-1.3); Globulin 2.3 gm/dL (2.3-3.5); Glucose 111 mg/dL (74-106); Osmolality,Calculated 287 (275-295); Phosphorous 4.3 mg/dL (2.4-5.1); Potassium 4.3 mMol/L (3.4-5.1); Sodium 142 mMol/L (136-145); Total Protein 6.2 gm/dL (5.7-8.2); eGFR > 60 See Note
[2025-02-04] MEDS: FUROSEMIDE INJ 10 MG/ML VIAL 2 ML 20 MG IVP (08:37)
--- NOTE | 2025-02-04 14:16 | ESDS_ITS ---
<Statement entered by David Jarvis MD - 02/09/25 16:29> Patient seen and examined at bedside with resident. Agree with assessment plan as dictated below. Patient cleared for discharge with recommendations below. David Jarvis MD Planned Discharge Date 02/04/25 DS: Providers Provider Date of admission: 02/02/25 00:21 Primary care physician: Nickolas Jones MD Admitting Provider: David Scott MD Attending Provider on Admission: Jose Cintron MD Consults: 02/02/25 18:26 [facility] Referral - Knowledge Deficit Routine Comment: Positive screening for knowledge deficit needs. [facility] Referral - Nutrition Routine Comment: Positive screening for nutrition needs. [facility] Referral - Transportation Routine Comment: Positive screening for transportation needs. [facility] Referral - Utilities Routine Comment: Positive screening for utility assistance needs. 02/03/25 11:36 Referral Physical Therapy Urgent Comment: Physician Instructions: Attending Provider on DC: Vernon Sanderson MD Discharging Provider: Vernon Sanderson MD DS: Diagnosis Problem List Completed Was Problem List Reviewed/Reconciled?: Yes Hospital Course Hospital Course Hospital course: Mr. Lowe a 64-year-old male patient with significant medical history of HTN, HLD, COPD on 2 L home O2, HFpEF 55 to 60%, and paroxysmal A-fib was admitted for hypercapnic encephalopathy and acute on chronic hypercapnic/hypoxic respiratory failure in setting of COPD on 02/01/29. Of note, he has has multiple admissions for COPD exacerbations where he was last discharged on 01/21 and admitted this time for the same. While in hospital patient was treated with DuoNebs, azithromycine and prednisone. Patient was encouraged to medication and CPAP comp liancy. As patient improved to baseline, he was safe to be discharged to SNF. Discharge summary was reviewed with my attending Dr. Jarvis. Vernon Sanderson, PGY-2 #Acute on chronic hypoxic and hypercapnic respiratory failure #COPD exacerbation #Hypertension #Paroxysmal A-fib, not on AC #Macrocytic anemia #Thrombocytopenia Time Spent with Patient Time attestation: Total time spent providing and/or coordinating discharge services: Time spent: Greater than 30 minutes Exam Vital Signs Temp Pulse Resp BP Pulse Ox O2 Del Method O2 Flow Rate 97.9 F 86 22 H 129/73 98 Nasal Cannula 3 02/04/25 12:00 02/04/25 12:44 02/04/25 12:44 02/04/25 12:00 02/04/25 12:44 02/04/25 12:00 02/04/25 12:44 FiO2 65 02/03/25 04:00 Narrative Exam General: Elderly male, No acute distress, on nasal cannula HEENT: NCAT, No JVD noted. Pupils are equal and reactive to light bilaterally Cardiovascular: Normal S1 and S2. Regular rate and rhythm. Respiratory: Lungs are clear to auscultation bilaterally. No wheezing or crackles heard. Abdomen: Soft, nontender, not distended, normal bowel sounds. Skin: dry, b/L venous stasis dermatitis Musculoskeletal: No gross injuries. Able to move all 4 extremities. No pitting edema Neuro: No focal neuro deficits. Psych: Normal affect and mood Discharge Plan Plan Patient Disposition: Xfer Skilled Nsg Fac (SNF) Patient condition on transfer: Stable Prescriptions/Referrals Prescriptions/Med Rec: New atorvastatin 20 mg Tablet 40 mg PO HS 30 Days Qty: 60 0RF ipratropium-albuterol 0.5 mg-3 mg(2.5 mg base)/3 mL Solution For Nebulization 3 ml INH Q6HRRT PRN (Reason: SOB/Wheeze) 30 Days Qty: 3 0RF Continued nicotine 21 mg/24 hr Patch 24 Hour 21 mg top QDAY PRN (Reason: Nicotine Cravings) Qty: 7 0RF albuterol sulfate 90 mcg/actuation aerosol powdr breath activated 2 inh inhalation Q6H PRN (Reason: shortness of breath or wheezing) Qty: 1 3RF furosemide 40 mg tablet 40 mg PO BID Patient Comments: TAKE ONE TABLET BY MOUTH TWICE DAILY A DIURETIC Trelegy Ellipta 200-62.5-25 mcg blister with device 1 inh inhalation Q24H Qty: 60 0RF Referrals: Nickolas Jones MD [Primary Care Provider] - Patient/Caregiver Discharge Instructions Discharge Activity: as per physical therapy Other Discharge Activity Instructions:: Use BiPAP every night as tolerated, maintain good compliance. Continue atorvastatin 40 mg every night. Continue Trelegy Ellipta for COPD, use breathing treatments with DuoNeb as needed Continue Lasix 40 mg p.o. twice daily Continue nicotine patches as needed, recommended to quit smoking. Follow-up with primary care physician in 1 week. Return to ED if symptoms return or worsen. Other Discharge Diet Instructions: Cardiac diet, fluid restriction less than 2 L daily Education Materials: Discharge Instructions: COPD, COPD: Using Inhalers, What Is a BPAP?, Using a BPAP Print Language: Dominican Stand Alone Forms: [facility] Award Info., Patient Portal Info Letter Discharge Order Discharge Orders: Discharge (Routine); Ordered 02/04/25 Ordered By: Matteo Patel Quality Discharge Quality Measures VTE prophylaxis
--- NOTE | 2025-02-04 15:55 | PC.SS ---
[employer]othe[employer] Drier Operator (HAILEY) Petty met with patient to discuss discharge plan. SW notified that patient is scheduled to go to [facility]. Patient in agreement. SW provided IMM information. SW contacted [facility] for insurance transportation. Patient does not have transportation services. SW contacted [facility] and transportation has been scheduled for [id number]. RN-Yordy pina.
== END 2025-02-04 16:46 | disposition skilled nursing facility (03) | DRG 190 ==
LOC: SERX 02-02 00:06 → SERHOLD 02-02 00:53 → S2NX 02-02 02:20
PROVIDERS: Student in an Organized Health Care Education/Training Program; Admitting Provider Internal Medicine; Emergency Provider Emergency Medicine; PCP Family Medicine; Visit Provider Student in an Organized Health Care Education/Training Program
DX: J44.1 Chronic obstructive pulmonary disease with (acute) exacerbation (principal); J96.21 Acute and chronic respiratory failure with hypoxia; J96.22 Acute and chronic respiratory failure with hypercapnia; S22.41XA Multiple fractures of ribs, right side, initial encounter for closed fracture; I50.32 Chronic diastolic (congestive) heart failure; E87.20 Acidosis, unspecified; I48.0 Paroxysmal atrial fibrillation; E78.5 Hyperlipidemia, unspecified; I11.0 Hypertensive heart disease with heart failure; F17.210 Nicotine dependence, cigarettes, uncomplicated; D53.9 Nutritional anemia, unspecified; D69.6 Thrombocytopenia, unspecified; Z99.81 Dependence on supplemental oxygen; Z91.199 Patient's noncompliance with other medical treatment and regimen due to unspecified reason; Z79.899 Other long term (current) drug therapy; Z95.1 Presence of aortocoronary bypass graft
CPT/HCPCS: 36415; 36600; 71045; 80053; 80061; 81001; 82803; 83605; 83735; 83880; 84100; 84145; 84439; 84443; 84484; 85025; 85379; 85610; 85652; 85730; 86140; 87040; 87081; 87400; 87634; 87811; 93005; 94640; 94660; 96374; 96375; 97162; 99291; A9270; J0456; J1643; J1938; J1940; J2060; J2919; J3475; J7050

== ENCOUNTER 2025-03-16 01:00 | Inpatient (IN) | payer MEDICARE, MEDICAID, SELFPAY ==
[2025-03-16] VITALS (78 sets, daily range): BP systolic 65–169; BP diastolic 52–78; PULSE 59–113; RESP 12–94; TEMP 36.4–38.2; O2SAT 86–100; BMI 36.9; BMI 37.0
[2025-03-16] MEDS: SUCCINYLCHOLINE INJ 20 MG/ML VIAL 10 ML 100 MG IV (01:14)
[2025-03-16] MEDS: ETOMIDATE INJ 2 MG/ML VIAL 10 ML 20 MG IVP (01:14)
[2025-03-16] MEDS: MIDAZOLAM INJ 1 MG/ML VIAL 2 ML 2 MG IVP (01:25)
--- NOTE | 2025-03-16 01:30 | XR_ITS ---
Examination: AP chest single view Technique one AP portable supine chest single view Date and time: March 16, 2025 0133 hours Comparison February 01, 2025 INDICATIONS: Hypoxic respiratory failure, postintubation, postcentral line placement FINDINGS: Mild enlargement left ventricle Pneumonia left base obscuring detail left hemidiaphragm with left pleural fluid Right internal jugular central line tip SVC satisfactory position Endotracheal tube tip 6.5 cm above Tamera. Orogastric tube is in the stomach, satisfactory position. IMPRESSION: Significant left base pneumonia, consider aspiration pneumonia Right internal jugular central line tip SVC satisfactory position, no pneumothorax Endotracheal tube tip 6.5 cm above tamera
[2025-03-16] MEDS: PROPOFOL 1,000 MG IVPB 1,000 MG/100 ML VIAL 3.402 MG IV (01:34)
--- NOTE | 2025-03-16 01:36 | EDNOTE_ITS ---
Altered Mental Status RME/HPI General Chief Complaint: Altered Mental Status Stated Complaint: AMS Arrival date/time: 03/16/25 01:00 RME / HPI RME / HPI narrative: DR. GOLDBERG?S MAIN ED EVALUATION: 64-year-old male with history of hypertension, CHF, Asthma, and COPD presenting to the emergency department via EMS from home who is presenting for stated complaint of altered mental status. EMS was called due to SOB and generalized weakness [employer]. Per EMS, patient was initially GCS 14, then became unresoponsive after foaming at the mouth and seizing breathing. After Versed 2 mg was given at 0052 hours, patient was GCS 8. Patient responds only to excessive stimuli. Last set of vitals showed BP 137/53, 100 HR, 12 RR with pupils appearing smaller, but not pinpoint. Family was only able to show EMS bottles of LASIX and no other medication information was provided. EMS states patient takes Albuterol, Potassium Chloride, Symbicort, and Lipitor. No other associated symptoms or medical complaints reported. - PMH: Seizures, Atrial Fibrillation, Hypercholesterolemia, Congestive Heart Failure, Hypertension, Chronic Obstructive Pulmonary Disease (COPD), Asthma, Obesity, Recreational Drug Use and Anxiety - PSH: Open Heart Surgery and Coronary Artery Bypass Graft - Social history: Recreational drug use - Current medications: Reviewed PCP is Unknown MD complaint: altered mental status Onset (ago): minute(s) Associated symptoms: shortness of breath, weakness and other (foaming at the mouth) Treatments prior to arrival: IV fluid (Versed) Related Data Home Medications ?Medication ?Instructions ?Recorded ?Confirmed furosemide 40 mg tablet 40 mg PO BID 11/08/24 Previous Rx's ?Medication ?Instructions ?Recorded albuterol sulfate 90 mcg/actuation 2 inh inhalation Q6 H PRN shortness 09/20/24 breath activated powder inhaler of breath or wheezing #1 ea fluticasone fur. 200 mcg-umeclid 1 inh inhalation Q24H #60 ea 11/10/24 62.5 mcg-vilant 25 mcg inhalat.powder (Trelegy Ellipta) nicotine 21 mg/24 hr daily 21 mg top QDAY PRN Nicotine 12/31/24 transdermal patch Cravings #7 ea Allergies Allergy/AdvReac Type Severity Reaction Status Date / Time No Known Allergies Allergy Verified 01/21/25 12:16 Review of Systems Review of Systems ROS Unobtainable: unobtainable due to mental status Past Medical History Past Medical History NEUROLOGIC: Positive Seizures CARDIAC: Positive Cardiac Disorders, Atrial Fibrillation, Hypercholesterolemia, Congestive Heart Failure and Hypertension RESPIRATORY: Positive Chronic Obstructive Pulmonary Disease (COPD), Asthma and Pneumonia GASTROINTESTINAL: Positive Obesity GENITOURINARY: Positive Genitourinary Disorders PSYCHO/SOCIAL: Positive Recreational Drug Use and Anxiety OTHER HISTORY: Positive Falls Surgical History SURGICAL: Positive Open Heart Surgery and Coronary Artery Bypass Graft Course Quality Measures none Orders Category Date Time Status Bedside Blood Glucose NOW Care 03/16/25 02:33 Active Nutrition Intern Q4H START 00 Care 03/16/25 02:33 Active Fingerstick [Bedside Blood Glucose] NOW Care 03/16/25 01:07 Active Insert IV NOW Care 03/16/25 02:33 Active Intubation NOW Care 03/16/25 01:43 Completed Strict Intake and Output Routine Care 03/16/25 02:33 Ordered XR chest 1V post procedure Stat Exams 03/16/25 01:30 Taken ABG [Arterial Blood Gas] Stat Lab 03/16/25 01:50 Completed Blood Culture (Lab) Stat Lab 03/16/25 01:11 Received CBC Stat Lab 03/16/25 01:05 Completed Comprehensive Metabolic Panel Stat Lab 03/16/25 01:05 Completed Lactate (Lactic Acid) Stat Lab 03/16/25 01:05 Completed Partial Thromboplastin Time Stat Lab 03/16/25 01:05 Completed Procalcitonin Stat Lab 03/16/25 01:05 Completed Prothrombin Time with INR Stat Lab 03/16/25 01:05 Completed Sputum Culture and Gram Stain Stat Lab 03/16/25 01:54 Received Troponin I Stat Lab 03/16/25 01:05 Completed Urinalysis Stat Lab 03/16/25 05:43 Ordered Urine Culture Stat Lab 03/16/25 05:43 Ordered ALBUTEROL RT 0.5ml [Proventil Rt 0.5ml] Med 03/16/25 01:32 Discontinued 10 mg .ROUTE .STK-MED ONE ALBUTEROL RT 0.5ml [Proventil Rt 0.5ml] Med 03/16/25 01:32 Discontinued 10 mg INH X1 ONE Etomidate Inj [Amidate Inj] Med 03/16/25 01:05 Discontinued 20 mg .ROUTE .STK-MED ONE Etomidate Inj [Amidate Inj] Med 03/16/25 01:09 Discontinued 20 mg IVP X1 ONE Midazolam Inj [Versed Inj] Med 03/16/25 01:22 Discontinued 2 mg .ROUTE .STK-MED ONE Propofol 1,000 mg Ivpb [Diprivan Ivpb] Med 03/16/25 01:23 Discontinued 1,000 mg in 100 ml IV .STK-MED Propofol 1,000 mg Ivpb [Diprivan Ivpb] Med 03/16/25 01:24 Active 1,000 mg in 100 ml IV 5 mcg/kg/min Sodium Chloride Rt Marita 0.9% [NS Rt Marita 0.9%] Med 03/16/25 01:32 Active 3 ml INH PRN PRN Succinylcholine Inj [Anectine Inj] Med 03/16/25 01:09 Discontinued 100 mg IV X1 ONE Succinylcholine Inj [Anectine Inj] Med 03/16/25 01:05 Discontinued 200 mg .ROUTE .STK-MED ONE fentaNYL 2,500 MCG/250 ML BAG [Sublimaze Inj 2,500 MCG/ Med 03/16/25 02:47 Active 250 ML BAG] 2,500 mcg in 250 ml IV 25 mcg/hr Oxygen Delivery NOW RT 03/16/25 02:33 Active Volume Ventilator Stat RT 03/16/25 Active Vital Signs Vital signs: Vital Signs Pulse Rate 105 H 03/16/25 01:03 Respiratory Rate 27 H 03/16/25 01:03 Blood Pressure 137/76 H 03/16/25 01:03 Pulse Oximetry (%) 92 L 03/16/25 01:03 Procedures -ED Central Line Placement Right IJ: Time Out Performed: Yes Patient Placed on Monitor/Pulse Ox: Yes Hand Hygiene: scrub, soap & water and alcohol-based hand rub Max Sterile Barrier Techniques used: cap, mask, sterile gown, sterile gloves and sterile full body drape Central Line Prep: Povidone-Iodine 1% and sterile drapes applied Ultrasound Used for Placement: Yes Sterile Technique if Ultrasound used, including sterile gel: yes Central Line Lumen Inserted: triple Post Procedure: sutured in place, good blood return, all ports aspirated, flushed, capped and sterile dressing applied Post Procedure X-Ray: tip of catheter in good position and no pneumothorax seen Patient Tolerated Procedure: well and no complications Intubation Time out performed: Yes sedative: Etomidate Mg Given: 100 paralytic: Succinylcholine Mg Given: 20 Laryngoscope: fiber optic video scope Assist Device Used: fiber optic device ET Tube Size: 7.5 ET Tube Uncuffed: Yes Tube Secured Depth (cm): 24 Tube Secured Location: lips Tube Placement Confirmation: visualized tube passing through cords, equal breath sounds bilaterally and no breath sounds over epigastrium Patient Tolerated Procedure: well and no complications Intubation Complications: none Altered Mental Status MDM Narrative MDM Narrative:: Scribe Attestation: 03/16/2025 Fanta Ingram am scribing for and in the presence of Dr. Goldberg. Provider Notation: Although this document has been carefully reviewed, there may still be some phonetic and other typographical errors.? These errors are purely grammatical due to imperfections in the software program and should not be construed in any way to compromise the substance of the patient's medical care during this visit. 64-year-old male with history of hypertension, CHF, Asthma, and COPD presenting to the emergency department via EMS from home who is presenting for stated complaint of altered mental status. EMS was called due to SOB and generalized weakness [employer]. ROS: Altered mental status, SOB, generalized weakness Differential diagnoses include Patient data External records reviewed:: [facility] previous records (Reviewed prior ED records from 02/01/25. Patient was seen for Acute respiratory failure with hypoxia and hypercapnia.) and EMS form Clinical information provided by:: EMS (Patient was initially GCS 14, then became unresoponsive after foaming at the mouth and seizing breathing. After Versed 2 mg was given at 0052 hours, patient was GCS 8. Patient responds only to excessive stimuli. Last set of vitals showed BP 137/53, 100 HR, 12 RR with pupils appearing smaller, but no) Social determinants that could affect healthcare access:: none Patient has the following chronic illnesses:: Seizures, Atrial Fibrillation, Hypercholesterolemia, Congestive Heart Failure, Hypertension, Chronic Obstructive Pulmonary Disease (COPD), Asthma, Obesity, Recreational Drug Use and Anxiety How is presenting disease/condition affected by chronic disease/condition?: exacerbated by Evaluation data The following diagnostics were reviewed and interpreted by me:: lab results, radiology exam(s) and EKG tracing(s) (EKG manual reading, March 16, 2025 0110 hours, my interpretation: sinus tachycardia, 104 BPM, QTc is 388, left P-wave v1, v2, Non-STEMI) Lab and/or radiology exams considered but not ordered:: None Interpretation Summary: EMS EKG: EKG manual reading, March 16, 2025 00:58 hours, my interpretation: sinus tachycardia, 101 BPM, QTc is 403, QRS 108. RADIOLOGY Chest X-Ray: LABS RBC 4.40, Hgb 13.3, MCHC 30.3, RDW Std Deviation 52.7, Plt Count 106, Lymphocyte # 0.8, Immature Granulocyte # 0.22, Absolute Nucleated RBC 0.02, Immature granul ocyte % 4%. ABG pH 7.30, ABG pO2 367, ABG HCO3 50, ABG Base 19. Potassium 5.4, Chloride 92, carbon Dioxide > 40.0, Glucose 109. Medications / Prescriptions Medications or Prescriptions considered but not ordered:: None Medication administrations:: Medication Administration History Acetaminophen (Acetaminophen 325 Mg Tablet) 650 mg PO Q6H PRN PRN Reason: Fever >101.5 Stop: 04/15/25 03:16 Albuterol/Ipratropium (Albuterol/Ipratropium (Duoneb) Rt Marita 3 Ml Nebu) 3 ml INH Q6HRRT FREDIS Stop: 04/15/25 06:59 Enoxaparin Sodium (Enoxaparin Sod Inj 40 Mg/0.4 Ml Syringe) 40 mg SC QDAY FREDIS Stop: 03/30/25 08:59 Propofol (Diprivan Ivpb) 1,000 mg in 100 mls @ 3.402 mls/hr IV .Q24H PRN; Protocol PRN Reason: PER PROTOCOL Stop: 04/15/25 01:23 Last Titration: 03/16/25 04:39 Dose: 25 mcg/kg/min, 17.01 mls/hr Documented By: Titration: 03/16/25 03:00 Dose: 25 mcg/kg/min, 17.01 mls/hr Documented By: Titration: 03/16/25 02:00 Dose: 25 mcg/kg/min, 17.01 mls/hr Documented By: Titration: 03/16/25 01:50 Dose: 20 mcg/kg/min, 13.608 mls/hr Documented By: Titration: 03/16/25 01:45 Dose: 15 mcg/kg/min, 10.206 mls/hr Documented By: Titration: 03/16/25 01:40 Dose: 10 mcg/kg/min, 6.804 mls/hr Documented By: Admin: 03/16/25 01:34 Dose: 5 mcg/kg/min, 3.402 mls/hr Documented By: GENE Co-signed By: CVL Fentanyl Citrate (Sublimaze Inj 2,500 Mcg/250 Ml Bag) 2,500 mcg in 250 mls @ 2.5 mls/hr IV .Q24H PRN; Protocol PRN Reason: PER PROTOCOL Stop: 03/21/25 02:46 Last Titration: 03/16/25 04:00 Dose: 25 mcg/hr, 2.5 mls/hr Documented By: Admin: 03/16/25 03:04 Dose: 25 mcg/hr, 2.5 mls/hr Documented By: GENE Co-signed By: PIPPA Ondansetron HCl (Ondansetron Inj 2 Mg/Ml Inj 2 Ml) 4 mg IV Q6H PRN; Protocol PRN Reason: NAUSEA OR VOMITING Stop: 04/15/25 03:16 Pantoprazole Sodium (Pantoprazole Inj 40 Mg Vial) 40 mg IVP QDAY [facility] Stop: 04/15/25 08:59 Permethrin (Permethrin Cr 5% 60 Gm Tube) 0 gm TOP UD FREDIS Stop: 04/15/25 05:14 Sennosides (Senna Tablet) 1 tab PO QDAY FREDSI; Protocol Stop: 04/15/25 08:59 Sodium Chloride (Sodium Chloride Rt Marita 0.9% 3 Ml Nebu) 3 ml INH PRN PRN PRN Reason: SOLN Stop: 04/15/25 01:31 Discontinued Medications Albuterol (Albuterol Rt 2.5 Mg/0.5 Ml Nebu) 10 mg INH X1 ONE Stop: 03/16/25 01:33 Last Admin: 03/16/25 01:40 Dose: 10 mg Documented By: SC Albuterol (Albuterol Rt 2.5 Mg/0.5 Ml Nebu) Confirm Administered Dose 10 mg .ROUTE .STK-MED ONE Stop: 03/16/25 01:33 Last Admin: 03/16/25 01:40 Dose: 10 mg Documented By: GB Etomidate (Etomidate Inj 2 Mg/Ml Vial 10 Ml) 20 mg IVP X1 ONE Stop: 03/16/25 01:10 Last Admin: 03/16/25 01:14 Dose: 20 mg Documented By: CM Etomidate (Etomidate Inj 2 Mg/Ml Vial 10 Ml) Confirm Administered Dose 20 mg .ROUTE .STK-MED ONE Stop: 03/16/25 01:06 Last Admin: 03/16/25 02:57 Dose: Not Given Documented By: CM Non-Admin Reason: Duplicate Medication on eMAR Furosemide (Furosemide Inj 10 Mg/Ml 4ml Vial) 40 mg IVP X1 ONE Stop: 03/16/25 03:18 Last Admin: 03/16/25 04:47 Dose: 40 mg Documented By: GENE Propofol (Diprivan Ivpb) Confirm Administered Dose 1,000 mg in 100 mls @ ud IV .STK-MED ONE Stop: 03/16/25 01:24 Last Admin: 03/16/25 02:55 Dose: Not Given Documented By: CM Non-Admin Reason: Duplicate Medication on eMAR Methylprednisolone Sodium Succinate (Methylprednisolone Sod Succ 40 Mg Vial) 125 mg IVP X1 ONE Stop: 03/16/25 03:18 Last Admin: 03/16/25 04:48 Dose: 125 mg Documented By: GENE Midazolam HCl (Midazolam Inj 1 Mg/Ml Vial 2 Ml) Confirm Administered Dose 2 mg .ROUTE .STK-MED ONE Stop: 03/16/25 01:23 Last Admin: 03/16/25 02:55 Dose: Not Given Documented By: CM Non-Admin Reason: Duplicate Medication on eMAR Fluticasone/Salmeterol (Fluticasone/Salmeterol 250/50 14 Dose Inh) 1 puff INH BIDRT FREDIS Stop: 04/15/25 06:59 Succinylcholine Chloride (Succinylcholine Inj 20 Mg/Ml Vial 10 Ml) 100 mg IV X1 ONE Stop: 03/16/25 01:10 Last Admin: 03/16/25 01:14 Dose: 100 mg Documented By: GENE Succinylcholine Chloride (Succinylcholine Inj 20 Mg/Ml Vial 10 Ml) Confirm Administered Dose 200 mg .ROUTE .STK-MED ONE Stop: 03/16/25 01:06 Last Admin: 03/16/25 02:56 Dose: Not Given Documented By: GENE Non-Admin Reason: Duplicate Medication on eMAR See above if any Consultations Consultation(s) initiated? (list below): Yes Consultation #1 (Physician, Specialty, Details): Dr. Rust made aware of the patient?s HPI, PMHx, lab and/or radiology results. Treatment plan was discussed. Will admit for further evaluation and management. Accepts patient for admission. Time: 03:17 Diagnosis Most likely diagnosis given after review of the tests above:: Acute respiratory failure with hypercapnia Admission Indicated Admission indicated?: indicated Admission Request Was there a request for admission?: Yes Admission Attestation Admission request attestation: Discussed case with [] from Hospitalist service regarding admission. Discussed patients ED course, exam findings, labs, and radiology results. The Hospitalist [agrees,declines] to accept the patient for admission. Disposition Plan Disposition Plan: Admit Discharge Plan Plan Patient Disposition: Admit Acute Care w/in Hospital Patient condition on transfer: Stable Problem List Clinical Impression: Altered mental status, unspecified, Acute hypercapnic respiratory failure
[2025-03-16] MEDS: ALBUTEROL RT 2.5 MG/0.5 ML NEBU 10 MG INH (01:40)
[2025-03-16] MEDS: ALBUTEROL RT 2.5 MG/0.5 ML NEBU 10 MG (01:40)
[2025-03-16 02:01] LABS: Base Excess 19 (-3-3); HCO3 50 mEq/L (20-26); Inspired Oxygen, FIO2 21 %; O2 Saturation 98 % (91-98); PCO2 103 mmHg (32.0-48.0); PO2 367 mmHg (83-108)
[2025-03-16 02:13] LABS: Allen Test Performed/OK; Puncture Site Right Radial
[2025-03-16 02:52] LABS: Lactate (Lactic Acid) 0.8 mMol/L (0.4-2.0)
[2025-03-16 03:00] LABS: Basophils # (Auto) 0.1 Thou/mm3 (0.0-0.2); Basophils % (Auto) 1 % (0-2.5); Eosinophils % (Auto) 1 % (0-10); Hematocrit 43.9 % (41.0-53.0); Hemoglobin 13.3 g/dL (13.5-16.0); Immature Granulocytes % (Auto) 4 % (0-0); Immature Granulocytes Auto 0.22 Thou/mm3 (0.00-0.00); Lymphocytes # (Auto) 0.8 Thou/mm3 (1.0-4.8); Lymphocytes % (Auto) 14 % (10-50); Mean Corpuscular HGB Conc 30.3 g/dl (31.0-37.0); Mean Corpuscular Hemoglobin 30.2 pg (25.0-35.0); Mean Corpuscular Volume 100 fL (80-100); Monocytes # (Auto) 0.7 Thou/mm3 (0.0-0.8); Monocytes % (Auto) 11 % (0-12); Neutrophils # (Auto) 4.4 Thou/mm3 (1.8-7.7); Neutrophils % (Auto) 71 % (37-80); Nucleated Red Blood Cell # 0.02 Thou/mm3 (0.00-0.00); Nucleated Red Blood Cell % 0 /100 WBC (0); Platelet Count 106 Thou/mm3 (140-440); RDW Standard Deviation 52.7 fL (35.1-43.9); White Blood Count 6.2 Thou/mm3 (3.8-10.6)
[2025-03-16] MEDS: fentaNYL 2,500 MCG/250 ML BAG 2,500 MCG/250 ML BAG IV (03:04)
[2025-03-16 03:19] LABS: Partial Thromboplastin Time 27.9 Seconds (22.0-36.0); Prothrombin Time 10.9 Seconds (9.0-12.2)
--- NOTE | 2025-03-16 03:28 | ESHP_ITS ---
<Statement entered by Juan Carlos Cruz MD - 03/16/25 13:54> I have discussed and was present for the essential components of the history, physical examination, diagnosis, and treatment plan with the resident. I agree with the patient's care as documented by the resident and amended herein by me. Juan Carlos Cruz MD FACP. Documentation for date of: 03/16/25 HPI History of Present Illness Chief complaint: Dyspnea History of present illness: Mr. Lowe is a 64-year-old male with past medical history of severe COPD with multiple hospitalizations and multiple intubations on 4 l of home O2, HFpEF, paroxysmal A-fib, hypertension, hyperlipidemia who was brought into [facility] by EMS for dyspnea. Patient was at home and was alert and oriented x 3 but he became unresponsive in front of EMS so he was bagged and brought to the emergency department. In the emergency department he was found to have a GCS of 8 so patient was intubated. No other history was able to be obtained. Past medical history: As documented above Past surgical history: CABG Social history: Patient has longstanding smoking history with 60 pack years and significant recreational drug use Allergies: No known drug allergies Home Meds: Patient is discharged on albuterol, Trelegy, Lasix after every hospital visit but family was only able to provide Lasix prescription so it is unclear if patient has been medically compliant ED vitals: BP 137/76, pulse 107, RR 15, temp afebrile, O2 sat 92 on 15 L ED labs: WBC 6.2, hemoglobin 13.3, platelet 106 CMP pending. Lactic acid 0.8. ABG reveals pH of 7.3 and a CO2 of 103 O2 of 367 ED imaging: Chest x-ray COPD pattern with mild CHF ED management: Etomidate and succinylcholine for intubation, propofol fentanyl for sedation inhalation x 1. Blood cultures obtained Disposition patient is being admitted to ICU for the management of COPD exacerbation Review of Systems Review of Systems Systems Reviewed: All systems reviewed, normal except as documented Exam Vital Signs Temp Pulse Resp BP Pulse Ox O2 Del Method O2 Flow Rate 99.0 F 97 26 H 117/77 98 Mechanical Ventilation 03/16/25 02:17 03/16/25 03:20 03/16/25 03:20 03/16/25 02:15 03/16/25 03:09 03/16/25 02:15 03/16/25 01:15 FiO2 40 03/16/25 03:20 Narrative Exam GENERAL: GCS 8. Patient required mechanical intubation and ventilation. Appears as if he is shivering EYES: EOMI. Anicteric. HEENT: Moist mucous membranes. No scleral icterus. No cervical lymphadenopathy. LUNGS: Significant wheezing noted bilaterally CARDIOVASCULAR: Regular rate and rhythm. No murmur. No JVD. ABDOMEN: Soft, non-tender and but distended. No palpable masses. EXTREMITIES: All 4 extremeties intact. No edema. Nontender. SKIN: Chronic stasis dermatitis on bilateral lower extremities. Poor hygiene noted on both feet. NEUROLOGIC: No focal neurological deficits. CN II-XII grossly intact, but not individually tested. PSYCHIATRIC: Unable to assess Results: Labs 03/16/25 01:05 03/16/25 01:05 Labs: Short CBC 03/16/25 Range/Units 01:05 WBC 6.2 (3.8-10.6) Thou/mm3 Hgb 13.3 L (13.5-16.0) g/dL Hct 43.9 (41.0-53.0) % Plt Count 106 L D (140-440) Thou/mm3 ABG Interpretation ABG results: 03/16/25 01:50 ABG pH 7.30 L ABG pCO2 103 H* ABG pO2 367 H ABG HCO3 50 H ABG O2 Saturation 98 ABG Base Excess 19 H Quality Measures Quality Measures none Medications Home Medications and Allergies Home Medications ?Medication ?Instructions ?Recorded ?Confirmed ?Type furosemide 40 mg tablet 40 mg PO BID 11/08/24 History Allergies Allergy/AdvReac Type Severity Reaction Status Date / Time No Known Allergies Allergy Verified 01/21/25 12:16 Visit Medications Acetaminophen (Acetaminophen 325 Mg Tablet) 650 mg PO Q6H PRN PRN Reason: Fever >101.5 Stop: 04/15/25 03:16 Albuterol/Ipratropium (Albuterol/Ipratropium (Duoneb) Rt Marita 3 Ml Nebu) 3 ml INH Q6HRRT FREDIS Stop: 04/15/25 06:59 Enoxaparin Sodium (Enoxaparin Sod Inj 40 Mg/0.4 Ml Syringe) 40 mg SC QDAY FREDIS Stop: 03/30/25 08:59 Furosemide (Furosemide Inj 10 Mg/Ml 4ml Vial) 40 mg IVP X1 ONE Stop: 03/16/25 03:18 Propofol (Diprivan Ivpb) 1,000 mg in 100 mls @ 3.402 mls/hr IV .Q24H PRN; Protocol PRN Reason: PER PROTOCOL Stop: 04/15/25 01:23 Last Titration: 03/16/25 01:50 Dose: 20 mcg/kg/min, 13.608 mls/hr Fentanyl Citrate (Sublimaze Inj 2,500 Mcg/250 Ml Bag) 2,500 mcg in 250 mls @ 2.5 mls/hr IV .Q24H PRN; Protocol PRN Reason: PER PROTOCOL Stop: 03/21/25 02:46 Last Admin: 03/16/25 03:04 Dose: 25 mcg/hr, 2.5 mls/hr Methylprednisolone Sodium Succinate (Methylprednisolone Sod Succ 40 Mg Vial) 125 mg IVP X1 ONE Stop: 03/16/25 03:18 Ondansetron HCl (Ondansetron Inj 2 Mg/Ml Inj 2 Ml) 4 mg IV Q6H PRN; Protocol PRN Reason: NAUSEA OR VOMITING Stop: 04/15/25 03:16 Pantoprazole Sodium (Pantoprazole Inj 40 Mg Vial) 40 mg IVP QDAY FREDIS Stop: 04/15/25 08:59 Fluticasone/Salmeterol (Fluticasone/Salmeterol 250/50 14 Dose Inh) 1 puff INH BIDRT FREDIS Stop: 04/15/25 06:59 Sennosides (Senna Tablet) 1 tab PO QDAY FREDIS; Protocol Stop: 04/15/25 08:59 Sodium Chloride (Sodium Chloride Rt Marita 0.9% 3 Ml Nebu) 3 ml INH PRN PRN PRN Reason: SOLN Stop: 04/15/25 01:31 Discontinued Medications Albuterol (Albuterol Rt 2.5 Mg/0.5 Ml Nebu) 10 mg INH X1 ONE Stop: 03/16/25 01:33 Last Admin: 03/16/25 01:40 Dose: 10 mg Etomidate (Etomidate Inj 2 Mg/Ml Vial 10 Ml) 20 mg IVP X1 ONE Stop: 03/16/25 01:10 Last Admin: 03/16/25 01:14 Dose: 20 mg Succinylcholine Chloride (Succinylcholine Inj 20 Mg/Ml Vial 10 Ml) 100 mg IV X1 ONE Stop: 03/16/25 01:10 Last Admin: 03/16/25 01:14 Dose: 100 mg Assessment & Plan Plan Neurology Problem: On sedation for mechanical intubation and ventilation DDx: Diagnostic Test: Treatment Plan: Propofol and fentanyl for sedation Treatment Review: Cardiovascular Problem: History of paroxysmal A-fib, history of hypertension, history of CABG DDx: Diagnostic Test: Will order repeat EKG but appears to be in sinus rhythm. Currently normotensive. Will resume aspirin 81 mg p.o. daily Treatment Plan: Treatment Review: Respiratory Problem: Acute on chronic hypoxic respiratory failure secondary to COPD DDx: Diagnostic Test: ABG reveals a pH of 7.30 and a CO2 of 104. Patient had GCS of 8 on the field requiring mechanical intubation and ventilation. Treatment Plan: DuoNebs every 4 hours. Methylprednisolone 125 mg IV push x 1 followed by 60 mg 3 times daily for COPD exacerbation. Repeat ABG pending Treatment Review: GI and F/E/N Problem: None, Protonix 40 IV daily DDx: Diagnostic Test: Treatment Plan: Treatment Review: Renal Problem: Stable, currently CMP pending. Urine drug screen pending DDx: Diagnostic Test: Treatment Plan: Treatment Review: Heme Problem: Stable, NAD DDx: Diagnostic Test: Treatment Plan: Treatment Review: Endo Problem: Stable, NAD DDx: Diagnostic Test: Treatment Plan: Treatment Review: ID Problem: Stable, NAD DDx: Diagnostic Test: Treatment Plan: No complaints of fever or sputum. Blood cultures have been obtained. No antibiotics ordered Treatment Review: DVT prophylaxis: Lovenox 40 subcutaneous daily GI prophylaxis: Protonix 40 IV daily Diet: N.p.o. Yoder: In place and adequately draining Lines: Right IJ central line Drips: Fentanyl and propofol for sedation Vent: RR 26, tidal volume 450, PEEP of 5, FiO2 of 50% CODE STATUS: Full code, patient is likely candidate for hospice but goals of care discussion has had in the past where he refuses hospice. Reason for hospitalization severe COPD exacerbation rule mechanical intubation and ventilation. Plan of care discussed with supervising attending Dr. Anthony Rust M.D. PGY-3
[2025-03-16 03:38] LABS: Alanine Aminotransferase 11 U/L (10-49); Albumin, Serum 4.4 gm/dL (3.4-4.8); Albumin/Globulin Ratio 1.6 (1.2-2.2); Alkaline Phosphatase 56 U/L (46-116); Anion Gap 10 (7-16); Aspartate Amino Transferase 26 U/L (0-34); BUN/Creatinine Ratio 19 Ratio (12-20); Bilirubin,Total 0.3 mg/dL (0.3-1.2); Blood Urea Nitrogen 15 mg/dL (9-23); Calcium 8.9 mg/dL (8.3-10.6); Calcium (Corrected) 8.9 mg/dL (8.5-10.1); Carbon Dioxide > 40.0 mMol/L (20.0-31.0); Chloride 92 mMol/L (98-107); Creatinine (Component) 0.8 mg/dL (0.6-1.3); Estimated Creatinine Clearance 115.8 mL/min (>60); Globulin 2.7 gm/dL (2.3-3.5); Glucose 109 mg/dL (74-106); Osmolality,Calculated 284 (275-295); Potassium 5.4 mMol/L (3.4-5.1); Procalcitonin 0.18 ng/ml (0.0-0.49); Sodium 142 mMol/L (136-145); Total Protein 7.1 gm/dL (5.7-8.2); Troponin I < 0.020 ng/mL (0.0-0.045); eGFR > 60 See Note
[2025-03-16] MEDS: FUROSEMIDE INJ 10 MG/ML 4ML VIAL 40 MG IVP (04:47)
[2025-03-16 05:57] LABS: Basophils % (Auto) 0 % (0-2.5); Eosinophils % (Auto) 0 % (0-10); Hematocrit 39.5 % (41.0-53.0); Hemoglobin 12.1 g/dL (13.5-16.0); Immature Granulocytes % (Auto) 2 % (0-0); Immature Granulocytes Auto 0.13 Thou/mm3 (0.00-0.00); Lymphocytes # (Auto) 1.1 Thou/mm3 (1.0-4.8); Lymphocytes % (Auto) 15 % (10-50); Mean Corpuscular HGB Conc 30.6 g/dl (31.0-37.0); Mean Corpuscular Hemoglobin 30.3 pg (25.0-35.0); Mean Corpuscular Volume 99 fL (80-100); Monocytes # (Auto) 0.8 Thou/mm3 (0.0-0.8); Monocytes % (Auto) 12 % (0-12); Neutrophils # (Auto) 4.9 Thou/mm3 (1.8-7.7); Neutrophils % (Auto) 71 % (37-80); Nucleated Red Blood Cell % 0 /100 WBC (0); Platelet Count 119 Thou/mm3 (140-440); RDW Standard Deviation 52.4 fL (35.1-43.9)
[2025-03-16 05:58] LABS: Base Excess 24 (-3-3); HCO3 51 mEq/L (20-26); Inspired Oxygen, FIO2 40 %; O2 Saturation 89 % (91-98); PCO2 62 mmHg (32.0-48.0); pH, Arterial 7.53 (7.35-7.45)
[2025-03-16 06:03] LABS: Allen Test Performed/OK; PO2 46 mmHg (83-108); Puncture Site Right Brachial
[2025-03-16 06:30] LABS: Alanine Aminotransferase 8 U/L (10-49); Albumin, Serum 3.9 gm/dL (3.4-4.8); Albumin/Globulin Ratio 1.6 (1.2-2.2); Alkaline Phosphatase 52 U/L (46-116); Anion Gap 10 (7-16); Aspartate Amino Transferase 15 U/L (0-34); BUN/Creatinine Ratio 21 Ratio (12-20); Bilirubin,Total 0.6 mg/dL (0.3-1.2); Blood Urea Nitrogen 17 mg/dL (9-23); Calcium 9.3 mg/dL (8.3-10.6); Calcium (Corrected) 9.4 mg/dL (8.5-10.1); Carbon Dioxide > 40.0 mMol/L (20.0-31.0); Chloride 89 mMol/L (98-107); Creatinine (Component) 0.8 mg/dL (0.6-1.3); Estimated Creatinine Clearance 115.8 mL/min (>60); Globulin 2.4 gm/dL (2.3-3.5); Glucose 106 mg/dL (74-106); Osmolality,Calculated 279 (275-295); Potassium 4.4 mMol/L (3.4-5.1); Sodium 139 mMol/L (136-145); Total Protein 6.3 gm/dL (5.7-8.2); eGFR > 60 See Note
[2025-03-16] MEDS: ALBUTEROL/IPRATROPIUM (Duoneb) RT SOL 3 ML NEBU INH ×3 (06:37→18:45)
[2025-03-16 06:47] LABS: Collection Type, Urine Catheter; WBC,Urine 0 /hpf (0-5)
[2025-03-16 07:03] LABS: Bacteria,Urine Rare; Bilirubin,Urine Negative (Negative); Blood,Urine 2+ (Negative); Clarity,Urine Clear (Clear/Hazy); Color,Urine Lt-Yellow (Lt Yel-Yel); Glucose, Urine Negative (Negative); Hyaline Casts,Urine < 1 /hpf (0-1); Ketones,Urine Negative (Negative); Leukocyte Esterase,Urine Negative (Negative); Nitrite,Urine Negative (Negative); Protein,Urine Negative (Neg - Trace); RBC,Urine 14 /hpf (0-3); Squamous Epithelial Cell,Urine < 1 /hpf (0-5); Urobilinogen,Urine Negative mg/dL (0.0-1.0)
[2025-03-16 07:04] LABS: Amphetamine/Methamp Scrn,U Negative (Negative); Barbiturate Screen,Urine Negative (Negative); Benzodiazepines Screen,Urine Positive (Negative); Benzoylecgonine Screen, Ur Negative (Negative); Fentanyl Screen,Urine Positive (Negative); Opiate Screen,Urine Negative (Negative); THC Screen,Urine Negative (Negative)
--- NOTE | 2025-03-16 07:05 | PC.NURSE ---
patient arrived to floor intubated and no family member to get info for med recon.
[2025-03-16] MEDS: PROPOFOL 1,000 MG IVPB 1,000 MG/100 ML VIAL 20.412 MG IV (07:19)
--- NOTE | 2025-03-16 08:35 | PC.SS ---
Initial assessment: patient is a 64 year old male admitted for COPD Exacerbation, currently in ICU. Information obtained by patient's son Daniel listed on facesheet. Daniel confirmed the patient's demographic information. Patient utilizes a wheelchair to assist with ambulation. Patient utilizes oxygen at home at 2L. Prior to admission patient was able to complete ADL's independently. Preferred pharmacy is [facility]. Patient?s medical surrogate decision maker is Daniel meraz . Patient?s PCP is Nickolas Jones. Patient was recently discharged from [facility] on 02/27/25. At time of discharge patient will discharge home. Next of Kin: Daniel Meraz D/C Plan: Home
[2025-03-16] MEDS: PERMETHRIN CR 5% 60 GM TUBE TOP (08:44)
[2025-03-16] MEDS: NAPH,KPH MBDB 1 PACKET (1.5 GM) NG (08:44)
[2025-03-16] MEDS: SENNA TABLET 1 TAB PO (08:44)
[2025-03-16] MEDS: PANTOPRAZOLE INJ 40 MG VIAL IVP (08:45)
[2025-03-16] MEDS: ENOXAPARIN SOD INJ 40 MG/0.4 ML SYRINGE SC (08:45)
[2025-03-16 09:04] LABS: Base Excess 22 (-3-3); HCO3 50 mEq/L (20-26); Inspired Oxygen, FIO2 40 %; O2 Saturation 92 % (91-98); PCO2 69 mmHg (32.0-48.0); pH, Arterial 7.47 (7.35-7.45)
[2025-03-16 09:06] LABS: Allen Test Not Performed; PO2 58 mmHg (83-108); Puncture Site Left Brachial
[2025-03-16] MEDS: AZITHROMYCIN INJ 500 MG in SODIUM CHLORIDE 0.9% 250 ML 250 ML 250 MG IV (11:22)
[2025-03-16] MEDS: ACETAZOLAMIDE 500 MG IVP (11:25)
--- NOTE | 2025-03-16 12:54 | ESPR_ITS ---
Documentation for date of: 03/16/25 Subjective Subjective Interval history: This is a 64yo M admitted for hypercapneic resp failure. He was intubated in the ER last night and admitted to the ICU. He is well known to the service. No acute overnight events. Critical Care Note Critical care time (min.): 45 Exam Vital Signs Temp Pulse Resp BP Pulse Ox O2 Del Method O2 Flow Rate 98.8 F 63 15 129/60 97 Mechanical Ventilation 15 03/16/25 12:00 03/16/25 12:51 03/16/25 12:51 03/16/25 12:00 03/16/25 12:51 03/16/25 12:00 03/16/25 01:15 FiO2 40 03/16/25 12:51 Narrative Exam Gen- NAD, intubated, sedated, nl body habitus HEENT- NC/AT, mucosa hydrated, sclera anicteric , PERRL Chest- LCTAB, HRRR, no increase in WOB Abd- s/nt/bs+ Ext- 1+ pitting edema b/l LE, venous stasis dermatitis, mult skin escoriations throughout UE, dry skin/xerosis Vent AC VC Drip prop fent Physical Exam Completion Physical Exam Complete?: Yes 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 03/16/25 05:00 03/16/25 05:00 Labs: Laboratory Results - last 24 hr 03/16/25 03/16/25 03/16/25 01:05 01:50 05:00 WBC 6.2 7.0 RBC 4.40 L 4.00 L Hgb 13.3 L 12.1 L Hct 43.9 39.5 L MCV 100 99 MCH 30.2 30.3 MCHC 30.3 L 30.6 L RDW Std Deviation 52.7 H 52.4 H Plt Count 106 L D 119 L Neut % (Auto) 71 71 Lymph % (Auto) 14 15 [place] % (Auto) 11 12 Eos % (Auto) 1 0 Baso % (Auto) 1 0 Neut # (Auto) 4.4 4.9 Lymph # (Auto) 0.8 L 1.1 [place] # (Auto) 0.7 0.8 Eos # (Auto) 0.0 0.0 Baso # (Auto) 0.1 0.0 Immature Gran # (Auto) 0.22 H 0.13 H Absolute Nucleated RBC 0.02 H 0.00 Immature Gran % 4 H 2 H Nucleated RBC % 0 0 PT 10.9 INR 1.0 APTT 27.9 Puncture Site Right Radial ABG pH 7.30 L ABG pCO2 103 H* ABG pO2 367 H ABG HCO3 50 H ABG O2 Saturation 98 ABG Base Excess 19 H FiO2 21 Sodium 142 139 Potassium 5.4 H 4.4 D Chloride 92 L 89 L Carbon Dioxide > 40.0 H > 40.0 H Anion Gap 10 10 BUN 15 17 Creatinine 0.8 0.8 Estim Creat Clear Calc 115.8 115.8 eGFR > 60 > 60 BUN/Creatinine Ratio 19 21 H Glucose 109 H 106 Calculated Osmolality 284 279 Lactic Acid 0.8 Calcium 8.9 9.3 Corrected Calcium 8.9 9.4 Phosphorus 1.0 L Magnesium 2.0 Total Bilirubin 0.3 0.6 AST 26 15 ALT 11 8 L Alkaline Phosphatase 56 52 Troponin I < 0.020 Total Protein 7.1 6.3 Albumin 4.4 3.9 D Globulin 2.7 2.4 Albumin/Globulin Ratio 1.6 1.6 Procalcitonin 0.18 Ur Collection Type Urine Color Urine Clarity Urine pH Ur Specific [place] Urine Protein Urine Glucose (UA) Urine Ketones Urine Blood Urine Nitrite Urine Bilirubin Urine Urobilinogen (Auto) Ur Leukocyte Esterase Urine RBC Urine WBC Ur Squamous Epith Cells Urine Bacteria Hyaline Casts Urine Opiates Screen Urine Fentanyl Screen Ur Barbiturates Screen U Amphetamin/Meth Scrn U Benzodiazepines Scrn U Cocaine Metab Screen U Marijuana (THC) Screen 03/16/25 03/16/25 03/16/25 05:43 05:45 05:49 WBC RBC Hgb Hct MCV MCH MCHC RDW Std Deviation Plt Count Neut % (Auto) Lymph % (Auto) [place] % (Auto) Eos % (Auto) Baso % (Auto) Neut # (Auto) Lymph # (Auto) [place] # (Auto) Eos # (Auto) Baso # (Auto) Immature Gran # (Auto) Absolute Nucleated RBC Immature Gran % Nucleated RBC % PT INR APTT Puncture Site Right Brachial ABG pH 7.53 H D ABG pCO2 62 H D ABG pO2 46 L* D ABG HCO3 51 H ABG O2 Saturation 89 L ABG Base Excess 24 H FiO2 40 Sodium Potassium Chloride Carbon Dioxide Anion Gap BUN Creatinine Estim Creat Clear Calc eGFR BUN/Creatinine Ratio Glucose Calculated Osmolality Lactic Acid Calcium Corrected Calcium Phosphorus Magnesium Total Bilirubin AST ALT Alkaline Phosphatase Troponin I Total Protein Albumin Globulin Albumin/Globulin Ratio Procalcitonin Ur Collection Type Catheter Urine Color Lt-Yellow Urine Clarity Clear Urine pH 5.0 Ur Specific [place] 1.010 Urine Protein Negative Urine Glucose (UA) Negative Urine Ketones Negative Urine Blood 2+ A Urine Nitrite Negative Urine Bilirubin Negative Urine Urobilinogen (Auto) Negative Ur Leukocyte Esterase Negative Urine RBC 14 H Urine WBC 0 Ur Squamous Epith Cells < 1 Urine Bacteria Rare Hyaline Casts < 1 Urine Opiates Screen Negative Urine Fentanyl Screen Positive A Ur Barbiturates Screen Negative U Amphetamin/Meth Scrn Negative U Benzodiazepines Scrn Positive A U Cocaine Metab Screen Negative U Marijuana (THC) Screen Negative 03/16/25 08:55 WBC RBC Hgb Hct MCV MCH MCHC RDW Std Deviation Plt Count Neut % (Auto) Lymph % (Auto) [place] % (Auto) Eos % (Auto) Baso % (Auto) Neut # (Auto) Lymph # (Auto) [place] # (Auto) Eos # (Auto) Baso # (Auto) Immature Gran # (Auto) Absolute Nucleated RBC Immature Gran % Nucleated RBC % PT INR APTT Puncture Site Left Brachial ABG pH 7.47 H ABG pCO2 69 H ABG pO2 58 L* ABG HCO3 50 H ABG O2 Saturation 92 ABG Base Excess 22 H FiO2 40 Sodium Potassium Chloride Carbon Dioxide Anion Gap BUN Creatinine Estim Creat Clear Calc eGFR BUN/Creatinine Ratio Glucose Calculated Osmolality Lactic Acid Calcium Corrected Calcium Phosphorus Magnesium Total Bilirubin AST ALT Alkaline Phosphatase Troponin I Total Protein Albumin Globulin Albumin/Globulin Ratio Procalcitonin Ur Collection Type Urine Color Urine Clarity Urine pH Ur Specific [place] Urine Protein Urine Glucose (UA) Urine Ketones Urine Blood Urine Nitrite Urine Bilirubin Urine Urobilinogen (Auto) Ur Leukocyte Esterase Urine RBC Urine WBC Ur Squamous Epith Cells Urine Bacteria Hyaline Casts Urine Opiates Screen Urine Fentanyl Screen Ur Barbiturates Screen U Amphetamin/Meth Scrn U Benzodiazepines Scrn U Cocaine Metab Screen U Marijuana (THC) Screen Assessment & Plan Additional Plan Additional Plan: In brief this is a 64yo M admitted for COPDE and resp failure requiring intubation 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 CV HFpEF- on lasix - give dose of diamox as well today Resp Acute hypercapneic resp failure- on MV, ABG noted and vent adjusted - ween as able - attempt SBT when appropriate COPD- on nebs and steroids Renal Hypophos- repleted PO Hematuria- was also present last month when pt presented to hospital - further workup as outpt with urology GI GI proph- PPI Endo stable Heme Anemia- at baseline Thrombocytopenia- chronic and near baseline ID stable case d/w ICU team labs, imaging, records reviewed ~45ccmin required for eval, exam, review , intervention, discussion and formulation of POC Provider Notation Provider Notation: Although this document has been carefully reviewed, there may still be some phonetic and other typographical errors. These errors are purely grammatical due to imperfections in the software program and should not be construed in any way to compromise the substance of the patient's medical care during this visit. Thank you for the opportunity and privilege in assisting you with this patient's care and management.
--- NOTE | 2025-03-16 13:06 | ESPR_ITS ---
Documentation for date of: 03/16/25 Subjective Subjective Interval history: Pateint is a 64-year-old male with past medical history of severe COPD with multiple hospitalizations and multiple intubations on 4 l of home O2, HFpEF, paroxysmal A-fib, hypertension, hyperlipidemia who was brought into [facility] by EMS for dyspnea. Patient was at home and was alert and oriented x 3 but he became unresponsive in front of EMS so he was bagged and brought to the emergency department. In the emergency department he was found to have a GCS of 8 so patient was intubated. No other history was able to be obtained. Past medical history: As documented above Past surgical history: CABG Social history: Patient has longstanding smoking history with 60 pack years and significant recreational drug use Allergies: No known drug allergies Home Meds: Patient is discharged on albuterol, Trelegy, Lasix after every hospital visit but family was only able to provide Lasix prescription so it is unclear if patient has been medically compliant ED vitals: BP 137/76, pulse 107, RR 15, temp afebrile, O2 sat 92 on 15 L ED labs: WBC 6.2, hemoglobin 13.3, platelet 106 CMP pending. Lactic acid 0.8. ABG reveals pH of 7.3 and a CO2 of 103 O2 of 367 ED imaging: Chest x-ray COPD pattern with mild CHF ED management: Etomidate and succinylcholine for intubation, propofol fentanyl for sedation inhalation x 1. Blood cultures obtained 03/16/2025 Disposition patient is being admitted to ICU for the management of COPD exacerbation on 4 liters of oxygen at home, 8 recent hospitalizations, HFpEF 55-60% (09/2024), Paroxysmal Atrail Fibrillation, rate contrlled (not on elquis), HTN, HLD who was admitted on 03/16/2025 for acute hypercapnia respiratory failure and required mechanical ventilation (unbale to protect airway). 03/16/2025: Overnight. Afebrile. Mechanical ventilation VT 450, RR 22, PEEP 5, weaning off Proprofol 30 and Fentanyl 75. Spontaneous Breathing Trial, RSBI 84 breaths/min/L likely successful extubation. Azithromycin 500 mg qday started on 03/16/2025. Lasix 40 mg IVP scheduled. Methylprednisolon 40 mg IVP TID. Exam Vital Signs Temp Pulse Resp BP Pulse Ox O2 Del Method O2 Flow Rate 98.8 F 63 15 129/60 97 Mechanical Ventilation 15 03/16/25 12:00 03/16/25 12:51 03/16/25 12:51 03/16/25 12:00 03/16/25 12:51 03/16/25 12:00 03/16/25 01:15 FiO2 40 03/16/25 12:51 Narrative Exam General Appearance: Alert & Oriented X3 s/p extubation, well-nourished male who is lying in bed in no acute distress. Actin Keratosis noted on right face and seborreic keratosis on left lower extremity. HEENT: Skull symmetrical and atraumatic. Conjunctivae pale pink and Pupils equal, round, reactive to light and accommodation (PERRL). Cardio: Normal Rate and Rhythm with S1 and S2 heart sounds. No murmurs or extra heart sounds auscultated. No bruits on carotid auscultation. Yes peripheral edema 2+ Lungs: Symmetric with good expansion. Chest and back non-tender. Breath sounds vesicular without crackles, wheezing or rhonchi Abdomen: Non-tender, Non-distended, Normal Reactive Bowel Sounds Neuro: Alert, cooperative, oriented to person, place, and time. Speech clear s/p extubation. CN grossly intact. Upper motor strength 5/5 and Lower motor strength 5/5. Sensation intact. Objective Labs 03/16/25 05:00 03/16/25 05:00 Labs: Laboratory Results - last 24 hr 03/16/25 03/16/25 03/16/25 01:05 01:50 05:00 WBC 6.2 7.0 RBC 4.40 L 4.00 L Hgb 13.3 L 12.1 L Hct 43.9 39.5 L MCV 100 99 MCH 30.2 30.3 MCHC 30.3 L 30.6 L RDW Std Deviation 52.7 H 52.4 H Plt Count 106 L D 119 L Neut % (Auto) 71 71 Lymph % (Auto) 14 15 [place] % (Auto) 11 12 Eos % (Auto) 1 0 Baso % (Auto) 1 0 Neut # (Auto) 4.4 4.9 Lymph # (Auto) 0.8 L 1.1 [place] # (Auto) 0.7 0.8 Eos # (Auto) 0.0 0.0 Baso # (Auto) 0.1 0.0 Immature Gran # (Auto) 0.22 H 0.13 H Absolute Nucleated RBC 0.02 H 0.00 Immature Gran % 4 H 2 H Nucleated RBC % 0 0 PT 10.9 INR 1.0 APTT 27.9 Puncture Site Right Radial ABG pH 7.30 L ABG pCO2 103 H* ABG pO2 367 H ABG HCO3 50 H ABG O2 Saturation 98 ABG Base Excess 19 H FiO2 21 Sodium 142 139 Potassium 5.4 H 4.4 D Chloride 92 L 89 L Carbon Dioxide > 40.0 H > 40.0 H Anion Gap 10 10 BUN 15 17 Creatinine 0.8 0.8 Estim Creat Clear Calc 115.8 115.8 eGFR > 60 > 60 BUN/Creatinine Ratio 19 21 H Glucose 109 H 106 Calculated Osmolality 284 279 Lactic Acid 0.8 Calcium 8.9 9.3 Corrected Calcium 8.9 9.4 Phosphorus 1.0 L Magnesium 2.0 Total Bilirubin 0.3 0.6 AST 26 15 ALT 11 8 L Alkaline Phosphatase 56 52 Troponin I < 0.020 Total Protein 7.1 6.3 Albumin 4.4 3.9 D Globulin 2.7 2.4 Albumin/Globulin Ratio 1.6 1.6 Procalcitonin 0.18 Ur Collection Type Urine Color Urine Clarity Urine pH Ur Specific [place] Urine Protein Urine Glucose (UA) Urine Ketones Urine Blood Urine Nitrite Urine Bilirubin Urine Urobilinogen (Auto) Ur Leukocyte Esterase Urine RBC Urine WBC Ur Squamous Epith Cells Urine Bacteria Hyaline Casts Urine Opiates Screen Urine Fentanyl Screen Ur Barbiturates Screen U Amphetamin/Meth Scrn U Benzodiazepines Scrn U Cocaine Metab Screen U Marijuana (THC) Screen 03/16/25 03/16/25 03/16/25 05:43 05:45 05:49 WBC RBC Hgb Hct MCV MCH MCHC RDW Std Deviation Plt Count Neut % (Auto) Lymph % (Auto) [place] % (Auto) Eos % (Auto) Baso % (Auto) Neut # (Auto) Lymph # (Auto) [place] # (Auto) Eos # (Auto) Baso # (Auto) Immature Gran # (Auto) Absolute Nucleated RBC Immature Gran % Nucleated RBC % PT INR APTT Puncture Site Right Brachial ABG pH 7.53 H D ABG pCO2 62 H D ABG pO2 46 L* D ABG HCO3 51 H ABG O2 Saturation 89 L ABG Base Excess 24 H FiO2 40 Sodium Potassium Chloride Carbon Dioxide Anion Gap BUN Creatinine Estim Creat Clear Calc eGFR BUN/Creatinine Ratio Glucose Calculated Osmolality Lactic Acid Calcium Corrected Calcium Phosphorus Magnesium Total Bilirubin AST ALT Alkaline Phosphatase Troponin I Total Protein Albumin Globulin Albumin/Globulin Ratio Procalcitonin Ur Collection Type Catheter Urine Color Lt-Yellow Urine Clarity Clear Urine pH 5.0 Ur Specific [place] 1.010 Urine Protein Negative Urine Glucose (UA) Negative Urine Ketones Negative Urine Blood 2+ A Urine Nitrite Negative Urine Bilirubin Negative Urine Urobilinogen (Auto) Negative Ur Leukocyte Esterase Negative Urine RBC 14 H Urine WBC 0 Ur Squamous Epith Cells < 1 Urine Bacteria Rare Hyaline Casts < 1 Urine Opiates Screen Negative Urine Fentanyl Screen Positive A Ur Barbiturates Screen Negative U Amphetamin/Meth Scrn Negative U Benzodiazepines Scrn Positive A U Cocaine Metab Screen Negative U Marijuana (THC) Screen Negative 03/16/25 08:55 WBC RBC Hgb Hct MCV MCH MCHC RDW Std Deviation Plt Count Neut % (Auto) Lymph % (Auto) [place] % (Auto) Eos % (Auto) Baso % (Auto) Neut # (Auto) Lymph # (Auto) [place] # (Auto) Eos # (Auto) Baso # (Auto) Immature Gran # (Auto) Absolute Nucleated RBC Immature Gran % Nucleated RBC % PT INR APTT Puncture Site Left Brachial ABG pH 7.47 H ABG pCO2 69 H ABG pO2 58 L* ABG HCO3 50 H ABG O2 Saturation 92 ABG Base Excess 22 H FiO2 40 Sodium Potassium Chloride Carbon Dioxide Anion Gap BUN Creatinine Estim Creat Clear Calc eGFR BUN/Creatinine Ratio Glucose Calculated Osmolality Lactic Acid Calcium Corrected Calcium Phosphorus Magnesium Total Bilirubin AST ALT Alkaline Phosphatase Troponin I Total Protein Albumin Globulin Albumin/Globulin Ratio Procalcitonin Ur Collection Type Urine Color Urine Clarity Urine pH Ur Specific [place] Urine Protein Urine Glucose (UA) Urine Ketones Urine Blood Urine Nitrite Urine Bilirubin Urine Urobilinogen (Auto) Ur Leukocyte Esterase Urine RBC Urine WBC Ur Squamous Epith Cells Urine Bacteria Hyaline Casts Urine Opiates Screen Urine Fentanyl Screen Ur Barbiturates Screen U Amphetamin/Meth Scrn U Benzodiazepines Scrn U Cocaine Metab Screen U Marijuana (THC) Screen ABG Interpretation ABG results: 03/16/25 03/16/25 03/16/25 01:50 05:49 08:55 ABG pH 7.30 L 7.53 H D 7.47 H ABG pCO2 103 H* 62 H D 69 H ABG pO2 367 H 46 L* D 58 L* ABG HCO3 50 H 51 H 50 H ABG O2 Saturation 98 89 L 92 ABG Base Excess 19 H 24 H 22 H Quality Measures Quality Measures none Assessment & Plan Assessment Current Active Medications: Generic Name Dose Route Start Last Admin Trade Name Freq PRN Reason Stop Dose Admin Acetaminophen 650 mg 03/16/25 03:17 Acetaminophen 325 Mg Tablet PO 04/15/25 03:16 Q6H PRN Fever >101.5 Albuterol/Ipratropium 3 ml 03/16/25 07:00 03/16/25 12:49 Albuterol/Ipratropium (Duoneb) Rt Marita 3 Ml Nebu INH 04/15/25 06:59 3 ml Q6HRRT FREDIS Administration Enoxaparin Sodium 40 mg 03/16/25 09:00 03/16/25 08:45 Enoxaparin Sod Inj 40 Mg/0.4 Ml Syringe SC 03/30/25 08:59 40 mg QDAY FREDIS Administration Furosemide 40 mg 03/17/25 09:00 Furosemide Inj 10 Mg/Ml 4ml Vial IVP 04/16/25 08:59 QDAY FREDIS Propofol 1,000 mg in 100 mls @ 3.402 mls/hr 03/16/25 01:24 03/16/25 11:30 Diprivan Ivpb IV 04/15/25 01:23 5 mcg/kg/min .Q24H PRN 3.402 mls/hr PER PROTOCOL Titration Protocol 5 MCG/KG/MIN Fentanyl Citrate 2,500 mcg in 250 mls @ 2.5 mls/hr 03/16/25 02:47 03/16/25 10:15 Sublimaze Inj 2,500 Mcg/250 Ml Bag IV 03/21/25 02:46 0 mcg/hr .Q24H PRN 0 mls/hr PER PROTOCOL Titration Protocol 25 MCG/HR Azithromycin 500 mg/ Sodium 250 mls @ 250 mls/hr 03/16/25 11:00 03/16/25 11:22 Chloride IV 03/23/25 10:59 250 mls/hr QDAY FREDIS Administration Methylprednisolone Sodium Succinate 40 mg 03/17/25 14:00 Methylprednisolone Sod Succ 40 Mg Vial IVP 03/24/25 13:59 TID FREDIS Ondansetron HCl 4 mg 03/16/25 03:17 Ondansetron Inj 2 Mg/Ml Inj 2 Ml IV 04/15/25 03:16 Q6H PRN NAUSEA OR VOMITING Protocol Pantoprazole Sodium 40 mg 03/16/25 09:00 03/16/25 08:45 Pantoprazole Inj 40 Mg Vial IVP 04/15/25 08:59 40 mg QDAY FREDIS Administration Permethrin 0 gm 03/16/25 05:15 03/16/25 08:44 Permethrin Cr 5% 60 Gm Tube TOP 04/15/25 05:14 60 gm UD FREDIS Administration Sennosides 1 tab 03/16/25 09:00 03/16/25 08:44 Senna Tablet PO 04/15/25 08:59 1 tab QDAY FREDIS Administration Protocol Sodium Chloride 3 ml 03/16/25 01:32 Sodium Chloride Rt Marita 0.9% 3 Ml Nebu INH 04/15/25 01:31 PRN PRN SOLN Plan Patient is a 64 year old male with past medical history of HLD, HTN, COPD (with 8 admission this year for COPD exacerbation). Admitted on 03/16/2025 for acute on chronic hypercapnia respiratory failure secondary requiring mechanical ventilation. Neurology Problem: Acute Encephalopathy, secondary to acute hypercapnia respiratory failure, improved. DDx: Likely in the setting of COPD exacerbation with increased CO2 retention as noted on ABG. Patient currenlty off Propofol and Fentanyl, currently following commands and tracking. Diagnostic Test: Treatment Plan: Propofol and fentanyl stopped 03/16/2025 Treatment Review: Cardiovascular Problem: History of paroxysmal A-fib, history of hypertension, history of CABG DDx: Diagnostic Test: Will order repeat EKG but appears to be in sinus rhythm. Currently normotensive. Will resume aspirin 81 mg p.o. daily Treatment Plan: Treatment Review: Problem: history of CHF, HFpEF 55% to 60% DDx: Past medical history of CHF with HFpEF 55-60% Dx: Pulmonary vascular congestion as noted on chest x-ray and lower pedal edema Treatment plan: Lasix 40 mg IVP qday Treatment Review: monitor urine output Problem: history of hypertension DDx: past medical history of hypertension, home medication eplerenone and lasix. Dx: Rx: holding home medication as pressure has been within normal lmits. Rxx: re-evaluate blood pressure Hyperlipidemia restart home medication after patient passes nurse swallow screen. Rx: nurse swallow Rxx: Atorvastatin after nurse swallow Respiratory Problem: Acute on chronic hypercapnia respiratory failure secondary to COPD DDx:history of COPD likely secondary to medicaiton non compliance. Diagnostic Test: ABG reveals a pH of 7.30 and a CO2 of 104. Patient had GCS of 8 on the field requiring mechanical intubation and ventilation. Treatment Plan: DuoNebs every 4 hours. Methylprednisolone 125 mg IV push x 1 followed by 40 mg 3 times daily for COPD exacerbation. Treatment Review: ABG, off Fentantly and Propofol, Spontaneous breathing trial-->RSBI 84 breaths/min/L (likely sucessful). Patient currently following commands and alert, plan for extubation. GI and F/E/N Problem: None, Protonix 40 IV daily DDx: Diagnostic Test: Treatment Plan: Treatment Review: Renal Problem: Respiratory Acidosis with Metabolic Alkolosis compensation in the setting of COPD exacerbation. Diagnostic Test: ABG pH 7.30, pCO2 103 (H), pO2 367, HCO3 50(H), serum bicarbonate >40, Respiratory Acidosis HCO3 calculated 30.3 < serum bicarbonate greater 40 Treatment Plan: Diamox X 1 Treatment Review: monitor spontaneous breathing trial Problem: Hyperkalemia DDx: likely in the setting of COPD exacerbation, treat undelrying problem. Diagnostic Tests: 5.4 (H) Rxx: treat undelrying condition Treatment Review: follow CMP Problem Hypochloremia DDx: likely in the setting of Metabolic alkalosis compensation. Diagnostic: 92 (L) Rxx: treat undelrying condition Treatment Review: Follow CMP Heme Problem: Chronic, Normocytic Anemia DDx: Past medical history of normocytic anemia in the setting of anemia of chronic disease. Diagnostic Test: Hgb 12.1, Hct 39.5, MCV 99 Treatment Plan: Lovenox 40 mg sc qday Treatment Review:Iron Panel outpatient. Endo Problem: Stable, NAD DDx: Diagnostic Test: Treatment Plan: Treatment Review: ID Problem:SIRs criteria DDx: SIRs criteria met, less likley infectious as patient is afebrile and no WBC noted. Change in pulse and respiratory rate likely secondary to COPD exacerbation. Diagnostic Test: Treatment Plan: No complaints of fever or sputum. Blood cultures have been obtained. No antibiotics ordered Treatment Review: DVT prophylaxis: Lovenox 40 subcutaneous daily GI prophylaxis: Protonix 40 IV daily X 1 Diet: N.p.o. Yoder: In place and adequately draining Lines: Right IJ central line Drips: Fentanyl and propofol-stopped on 03/16/2025-->Pressure Support Vent: Pressure Support VT 450, spont 5 PEEP 5 CODE STATUS: Full code, patient is likely candidate for hospice but goals of care discussion has had in the past where he refuses hospice. Reason for hospitalization severe COPD exacerbation rule mechanical intubation and ventilation. - The patient's plan was discussed with attending Dr. Afshin Dela Cruz MD PGY1 Internal Medicine
--- NOTE | 2025-03-16 15:53 | PC.DIETICIAN ---
Nutrition prescription If EN is initiated, consider: Vital 1.2 at 20 ml/hr via OG tube by pump. Advance 10 ml every 8 hrs to goal rate of 65 ml/hr x 24 hrs. If no IV fluids, water flushes of 25 ml/hr (or per MD).
[2025-03-17] VITALS (11 sets, daily range): BP systolic 127–145; BP diastolic 66–73; PULSE 7–90; RESP 13–23; TEMP 36.3–37.5; O2SAT 84–100; BMI 37.0
[2025-03-17] MEDS: ALBUTEROL/IPRATROPIUM (Duoneb) RT SOL 3 ML NEBU INH ×4 (01:51→19:21)
[2025-03-17 06:17] LABS: Basophils % (Auto) 0 % (0-2.5); Eosinophils % (Auto) 0 % (0-10); Hematocrit 38.9 % (41.0-53.0); Hemoglobin 11.9 g/dL (13.5-16.0); Immature Granulocytes % (Auto) 2 % (0-0); Immature Granulocytes Auto 0.16 Thou/mm3 (0.00-0.00); Lymphocytes # (Auto) 0.4 Thou/mm3 (1.0-4.8); Lymphocytes % (Auto) 4 % (10-50); Mean Corpuscular HGB Conc 30.6 g/dl (31.0-37.0); Mean Corpuscular Hemoglobin 30.2 pg (25.0-35.0); Mean Corpuscular Volume 99 fL (80-100); Monocytes # (Auto) 0.2 Thou/mm3 (0.0-0.8); Monocytes % (Auto) 2 % (0-12); Neutrophils # (Auto) 9.2 Thou/mm3 (1.8-7.7); Neutrophils % (Auto) 93 % (37-80); Nucleated Red Blood Cell % 0 /100 WBC (0); Platelet Count 132 Thou/mm3 (140-440); RDW Standard Deviation 51.8 fL (35.1-43.9); Red Blood Count 3.94 Miln/mm3 (4.50-5.90); White Blood Count 9.9 Thou/mm3 (3.8-10.6)
[2025-03-17 06:58] LABS: Alanine Aminotransferase 8 U/L (10-49); Albumin, Serum 4.1 gm/dL (3.4-4.8); Albumin/Globulin Ratio 1.7 (1.2-2.2); Alkaline Phosphatase 47 U/L (46-116); Anion Gap 6 (7-16); Aspartate Amino Transferase 15 U/L (0-34); BUN/Creatinine Ratio 24 Ratio (12-20); Bilirubin,Total 0.3 mg/dL (0.3-1.2); Blood Urea Nitrogen 19 mg/dL (9-23); Calcium 8.8 mg/dL (8.3-10.6); Calcium (Corrected) 8.8 mg/dL (8.5-10.1); Carbon Dioxide 38.4 mMol/L (20.0-31.0); Chloride 96 mMol/L (98-107); Creatinine (Component) 0.8 mg/dL (0.6-1.3); Estimated Creatinine Clearance 114.1 mL/min (>60); Globulin 2.4 gm/dL (2.3-3.5); Glucose 136 mg/dL (74-106); Magnesium 2.1 mg/dL (1.6-2.6); Osmolality,Calculated 283 (275-295); Phosphorous 3.2 mg/dL (2.4-5.1); Potassium 4.2 mMol/L (3.4-5.1); Sodium 140 mMol/L (136-145); Total Protein 6.5 gm/dL (5.7-8.2); eGFR > 60 See Note
--- NOTE | 2025-03-17 09:10 | PC.SS ---
Follow up note: Pt is an ICU down grade. Pt is currently on 3 liters of O2. Waiting clinical improvement.
[2025-03-17] MEDS: AZITHROMYCIN INJ 500 MG in SODIUM CHLORIDE 0.9% 250 ML 250 ML 250 MG IV (09:21)
[2025-03-17] MEDS: ENOXAPARIN SOD INJ 40 MG/0.4 ML SYRINGE SC (09:21)
[2025-03-17] MEDS: FUROSEMIDE INJ 10 MG/ML 4ML VIAL 40 MG IVP (09:21)
[2025-03-17] MEDS: SENNA TABLET 1 TAB PO (09:22)
[2025-03-17] MEDS: PANTOPRAZOLE INJ 40 MG VIAL IVP (09:22)
--- NOTE | 2025-03-17 11:43 | ESPR_ITS ---
Documentation for date of: 03/17/25 Subjective Subjective Interval history: Patient examined at bedside today. No acute overnight events. Patient reports that he is doing okay. Is alert awake and oriented time place environment. He says he lives at home. He says that he feels shortness of breath at times, however he is doing okay right now. No other complaint at this time. Exam Vital Signs Temp Pulse Resp BP Pulse Ox O2 Del Method O2 Flow Rate 99.5 F 86 23 H 145/73 H 84 L Nasal Cannula 2 03/17/25 08:00 03/17/25 09:21 03/17/25 08:00 03/17/25 09:21 03/17/25 08:00 03/17/25 08:00 03/17/25 08:00 FiO2 3 03/17/25 06:26 Narrative Exam General: AAOx3, NAD, unkempt male, has santos, appears to be a bit sleepy HEENT: Dry mucous membranes, conjunctiva clear, EOMI, PERRLA, Cardiovascular: S1, S2, radial pulses +2 bilat, RRR Pulmonary: Diffuse wheezing in lung hein, no cough GI: No tenderness to light or deep palpitation, no guarding, rigidity, rebound tenderness or distension Extremities: No presence of trace or pitting edema in lower extremities bilaterally, dorsalis pedis pulses +2 bilaterally Skin: SK on some areas of his body, AK also present on possibly face Neuro: AAOx3, no focal motor or sensory deficits in the UE or LE bilat Objective Labs 03/17/25 05:14 03/17/25 05:14 Labs: Laboratory Results - last 24 hr 03/17/25 05:14 WBC 9.9 D RBC 3.94 L Hgb 11.9 L Hct 38.9 L MCV 99 MCH 30.2 MCHC 30.6 L RDW Std Deviation 51.8 H Plt Count 132 L Neut % (Auto) 93 H Lymph % (Auto) 4 L [place] % (Auto) 2 Eos % (Auto) 0 Baso % (Auto) 0 Neut # (Auto) 9.2 H Lymph # (Auto) 0.4 L [place] # (Auto) 0.2 Eos # (Auto) 0.0 Baso # (Auto) 0.0 Immature Gran # (Auto) 0.16 H Absolute Nucleated RBC 0.00 Immature Gran % 2 H Nucleated RBC % 0 Sodium 140 Potassium 4.2 Chloride 96 L Carbon Dioxide 38.4 H Anion Gap 6 L BUN 19 Creatinine 0.8 Estim Creat Clear Calc 114.1 eGFR > 60 BUN/Creatinine Ratio 24 H Glucose 136 H Calculated Osmolality 283 Calcium 8.8 Corrected Calcium 8.8 Phosphorus 3.2 Magnesium 2.1 Total Bilirubin 0.3 AST 15 ALT 8 L Alkaline Phosphatase 47 Total Protein 6.5 Albumin 4.1 Globulin 2.4 Albumin/Globulin Ratio 1.7 ABG Interpretation ABG results: 03/16/25 03/16/25 03/16/25 01:50 05:49 08:55 ABG pH 7.30 L 7.53 H D 7.47 H ABG pCO2 103 H* 62 H D 69 H ABG pO2 367 H 46 L* D 58 L* ABG HCO3 50 H 51 H 50 H ABG O2 Saturation 98 89 L 92 ABG Base Excess 19 H 24 H 22 H Quality Measures Quality Measures none Assessment & Plan Assessment Current Active Medications: Generic Name Dose Route Start Last Admin Trade Name Freq PRN Reason Stop Dose Admin Acetaminophen 650 mg 03/16/25 03:17 Acetaminophen 325 Mg Tablet PO 04/15/25 03:16 Q6H PRN Fever >101.5 Albuterol/Ipratropium 3 ml 03/16/25 07:00 03/17/25 06:25 Albuterol/Ipratropium (Duoneb) Rt Marita 3 Ml Nebu INH 04/15/25 06:59 3 ml Q6HRRT FREDIS Administration Enoxaparin Sodium 40 mg 03/16/25 09:00 03/17/25 09:21 Enoxaparin Sod Inj 40 Mg/0.4 Ml Syringe SC 03/30/25 08:59 40 mg QDAY FREDIS Administration Furosemide 40 mg 03/17/25 09:00 03/17/25 09:21 Furosemide Inj 10 Mg/Ml 4ml Vial IVP 04/16/25 08:59 40 mg QDAY FREDIS Administration Azithromycin 500 mg/ Sodium 250 mls @ 250 mls/hr 03/16/25 11:00 03/17/25 09:21 Chloride IV 03/23/25 10:59 250 mls/hr QDAY FREDIS Administration Ceftriaxone Sodium/Dextrose 1 gm in 50 mls @ 100 mls/hr 03/17/25 09:59 Rocephin/D5w 1gm Iv Premix IV 03/24/25 09:58 QDAY FREDIS Methylprednisolone Sodium Succinate 40 mg 03/17/25 06:00 03/17/25 06:01 Methylprednisolone Sod Succ 40 Mg Vial IVP 03/24/25 05:59 40 mg TID FREDIS Administration Ondansetron HCl 4 mg 03/16/25 03:17 Ondansetron Inj 2 Mg/Ml Inj 2 Ml IV 04/15/25 03:16 Q6H PRN NAUSEA OR VOMITING Protocol Pantoprazole Sodium 40 mg 03/18/25 09:00 Pantoprazole 40 Mg Tablet PO 04/17/25 08:59 QDAY FREDIS Protocol Permethrin 0 gm 03/16/25 05:15 03/16/25 08:44 Permethrin Cr 5% 60 Gm Tube TOP 04/15/25 05:14 60 gm UD FREDIS Administration Fluticasone/Salmeterol 1 puff 03/17/25 07:00 Fluticasone/Salmeterol 250/50 14 Dose Inh INH 04/16/25 06:59 BIDRT FREDIS Sennosides 1 tab 03/16/25 09:00 03/17/25 09:22 Senna Tablet PO 04/15/25 08:59 1 tab QDAY FREDIS Administration Protocol Sodium Chloride 3 ml 03/16/25 01:32 Sodium Chloride Rt Marita 0.9% 3 Ml Nebu INH 04/15/25 01:31 PRN PRN SOLN Plan Assessment Patient is a 64 year old male with past medical history of HLD, HTN, COPD (with 8 admission this year for COPD exacerbation). Admitted on 03/16/2025 for acute on chronic hypercapnia respiratory failure secondary requiring mechanical ventilation. Patient is currently downgraded on telemetry floor. #Acute on chronic hypercapnia respiratory failure #COPD exacerbation #Community Acquired Pneumonia Gold COPD stage: Gold E Patient is known to our service, has had 8 exacerbations this year Patient does exhibit medical noncompliance Patient is a chronic CO2 retainer Patient will need strict outpatient follow-up, and will require LABA, LAMA and ICS One blood culture shows GPC, likely contaminant Plan: ? Azithromycin and ceftriaxone IV ? Solu-Medrol 40 mg IV twice daily ? Oxygen saturation goals of 88 to 92% ? Wean off oxygen as tolerated ? BiPAP at night ? DuoNeb every 6 hours ? Follow-up blood cultures ? Advair twice daily #History of HFpEF, w G1DD #History of paroxysmal A-fib I was not able to find a EKG that showed atrial fibrillation Patient could have paroxysmal atrial fibrillation, however patient is poor historian Patient is not on any anticoagulation at this time Echo in 2023 shows grade 1 diastolic dysfunction, EF 55 to 60%, normal LV Plan: ? Telemetry ? Keep magnesium and potassium above 2 and 4 respectively ? Continue with rate control ? Lasix 40 mg IV twice daily ? Strict I's and O's ? Fluid restriction #Respiratory Acidosis with Metabolic Alkalosis, improving Patient is a chronic CO2 retainer, and will have metabolic alkalosis for compensation Patient's baseline bicarb could be around 38 Patient will have different compensation patterns due to patient's chronic CO2 retainment Plan: ? Treat as above ? Trend CMP #Hypertension #Hyperlipidemia Chronic Plan: ? Holding blood pressure medicines as blood pressures soft at this point ? Resumed home Lipitor 20 mg at bedtime #Chronic, Normocytic Anemia Hgb 11.9 today Plan: ? Trend CBC ? Outpatient follow-up #Acute Encephalopathy, secondary to acute hypercapnia respiratory failure, resolved #Health Maintenance Disposition: Telemetry DVT prophylaxis: Lovenox GI prophylaxis: Protonix Diet: Cardiac CODE STATUS: Full Patient seen and care discussed with my attending physician, Dr. Yasmani Gaines, PGY-1 Attending Provider Attestation/Addendum I have discussed and was present for the essential components of the history, physical examination, diagnosis, and treatment plan with the resident. I agree with the patient's care as documented by the resident and amended herein by me. Herman Gruber, . Patient seen and evaluated this AM. No acute distress overnight, BP 150/74 mmHg, patient presently on nasal cannula 5 L, SpO2 100% at time of bedside visit. I/O 945/3440. Patient is back to his baseline mentation, alert and oriented x 3. Significant labs include a hemoglobin of 12 which been stable, platelet count 132, sodium 140, potassium 4.2. Will continue antibiotic therapy with azithromycin and ceftriaxone for now, will also continue steroids and give a dose of Lasix for diuresis. Blood cultures demonstrating GPC x 1 set, likely contamination. Urine cultures are pending. Will also continue permethrin for possible scabies, patient is also on isolation for this as well. Likely discharge home in 1 to 2 days pending continued clinical improvement. Although this document has been carefully reviewed, there may still be some phonetic and other typographical errors. These errors are purely grammatical due to imperfections in the software program and should not be construed in any way to compromise the substance of the patient's medical care during this visit.
[2025-03-17] MEDS: cefTRIAXone/D5w 1gm IV premix 1 GM/50 ML BAG IV (12:18)
[2025-03-17] MEDS: ATORVASTATIN CALCIUM 20 MG TABLET PO (21:27)
[2025-03-18] VITALS (11 sets, daily range): BP systolic 112–156; BP diastolic 58–84; PULSE 69–91; RESP 16–33; TEMP 36.1–36.5; O2SAT 90–100; BMI 37.0
[2025-03-18] MEDS: ALBUTEROL/IPRATROPIUM (Duoneb) RT SOL 3 ML NEBU INH ×4 (01:50→19:36)
[2025-03-18 06:00] LABS: Basophils % (Auto) 0 % (0-2.5); Eosinophils % (Auto) 0 % (0-10); Hematocrit 37.3 % (41.0-53.0); Hemoglobin 11.5 g/dL (13.5-16.0); Immature Granulocytes % (Auto) 1 % (0-0); Immature Granulocytes Auto 0.09 Thou/mm3 (0.00-0.00); Lymphocytes # (Auto) 0.3 Thou/mm3 (1.0-4.8); Lymphocytes % (Auto) 3 % (10-50); Mean Corpuscular HGB Conc 30.8 g/dl (31.0-37.0); Mean Corpuscular Hemoglobin 29.8 pg (25.0-35.0); Mean Corpuscular Volume 97 fL (80-100); Monocytes # (Auto) 0.2 Thou/mm3 (0.0-0.8); Monocytes % (Auto) 2 % (0-12); Neutrophils # (Auto) 8.8 Thou/mm3 (1.8-7.7); Neutrophils % (Auto) 94 % (37-80); Nucleated Red Blood Cell % 0 /100 WBC (0); Platelet Count 124 Thou/mm3 (140-440); RDW Standard Deviation 50.8 fL (35.1-43.9); Red Blood Count 3.86 Miln/mm3 (4.50-5.90); White Blood Count 9.4 Thou/mm3 (3.8-10.6)
[2025-03-18 06:49] LABS: Alanine Aminotransferase < 7 U/L (10-49); Albumin, Serum 3.9 gm/dL (3.4-4.8); Albumin/Globulin Ratio 1.6 (1.2-2.2); Alkaline Phosphatase 43 U/L (46-116); Anion Gap 4 (7-16); Aspartate Amino Transferase 11 U/L (0-34); BUN/Creatinine Ratio 26 Ratio (12-20); Bilirubin,Total 0.2 mg/dL (0.3-1.2); Blood Urea Nitrogen 23 mg/dL (9-23); Calcium 8.6 mg/dL (8.3-10.6); Calcium (Corrected) 8.7 mg/dL (8.5-10.1); Carbon Dioxide 39.3 mMol/L (20.0-31.0); Chloride 98 mMol/L (98-107); Creatinine (Component) 0.9 mg/dL (0.6-1.3); Estimated Creatinine Clearance 101.3 mL/min (>60); Globulin 2.4 gm/dL (2.3-3.5); Glucose 156 mg/dL (74-106); Osmolality,Calculated 287 (275-295); Phosphorous 2.7 mg/dL (2.4-5.1); Potassium 4.9 mMol/L (3.4-5.1); Sodium 141 mMol/L (136-145); Total Protein 6.3 gm/dL (5.7-8.2); eGFR > 60 See Note
[2025-03-18] MEDS: FLUTICASONE/SALMETEROL 250/50 14 DOSE INH 1 PUFF INH ×2 (07:20→19:36)
[2025-03-18] MEDS: AZITHROMYCIN INJ 500 MG in SODIUM CHLORIDE 0.9% 250 ML 250 ML 250 MG IV (09:08)
[2025-03-18] MEDS: FUROSEMIDE INJ 10 MG/ML 4ML VIAL 40 MG IVP (09:09)
[2025-03-18] MEDS: PANTOPRAZOLE 40 MG TABLET PO (09:09)
[2025-03-18] MEDS: ENOXAPARIN SOD INJ 40 MG/0.4 ML SYRINGE SC (09:09)
[2025-03-18] MEDS: cefTRIAXone/D5w 1gm IV premix 1 GM/50 ML BAG IV (09:09)
[2025-03-18] MEDS: SENNA TABLET 1 TAB PO (09:09)
[2025-03-18] MEDS: ACETAzolaMIDE SOD 500 MG in SODIUM CHLORIDE 0.9% (Popper) 50 ML 100 MG IV (11:10)
--- NOTE | 2025-03-18 11:52 | PC.PT ---
03/19/2025 PT eval performed w/ patient reporting he is near PLOF but still SOB w/ less activity compared to prior to illness and hospitalization
--- NOTE | 2025-03-18 11:55 | ESPR_ITS ---
Documentation for date of: 03/18/25 Subjective Subjective Interval history: Patient was seen and examined at bedside. Patient was lying in bed comfortably, is on 3 L of oxygen today. His blood pressure was mildly elevated 156/84, however his CBC was within normal limits. We noticed that his sodium bicarb went up to 39, most likely secondary to the diuresis will give him 1 dose of Diamox. His blood culture grew out 1 GPC in 1 bottle, pending final results. At this time we will keep him 1 more day for diuresis and also for the final results even though we believe that most likely contamination. Patient on Rocephin, azithromycin, and methylprednisolone for his COPD and pneumonia. Will switch the patient from methylprednisolone 3 times daily to prednisone 40 daily from tomorrow. Exam Vital Signs Temp Pulse Resp BP Pulse Ox O2 Del Method O2 Flow Rate 97.3 F 80 33 H 125/58 L 93 L Humidified Nasal Cannula 4 03/18/25 08:00 03/18/25 09:09 03/18/25 08:00 03/18/25 09:09 03/18/25 08:00 03/18/25 08:00 03/18/25 08:00 FiO2 4 03/18/25 08:00 Narrative Exam GEN: AOx3, able to speak full sentences HEENT: NC/AC, PERRLA, oral mucosa moist, neck supple CVS: RRR, S1-S2 present, no murmurs appreciated RESP: Still mildly wheezy bilaterally, mild rhonchi was cleared with cough. GI: soft,non distended, non tender, NBS MSK: able to move all 4 limbs, no lower extremity edema SKIN: warm and dry APPLICATION COUNSELOR: CN II-XII and Sensation grossly intact. Objective Labs 03/18/25 05:15 03/18/25 05:15 Labs: Laboratory Results - last 24 hr 03/18/25 05:15 WBC 9.4 RBC 3.86 L Hgb 11.5 L Hct 37.3 L MCV 97 MCH 29.8 MCHC 30.8 L RDW Std Deviation 50.8 H Plt Count 124 L Neut % (Auto) 94 H Lymph % (Auto) 3 L [place] % (Auto) 2 Eos % (Auto) 0 Baso % (Auto) 0 Neut # (Auto) 8.8 H Lymph # (Auto) 0.3 L [place] # (Auto) 0.2 Eos # (Auto) 0.0 Baso # (Auto) 0.0 Immature Gran # (Auto) 0.09 H Absolute Nucleated RBC 0.00 Immature Gran % 1 H Nucleated RBC % 0 Sodium 141 Potassium 4.9 D Chloride 98 Carbon Dioxide 39.3 H Anion Gap 4 L BUN 23 Creatinine 0.9 Estim Creat Clear Calc 101.3 eGFR > 60 BUN/Creatinine Ratio 26 H Glucose 156 H Calculated Osmolality 287 Calcium 8.6 Corrected Calcium 8.7 Phosphorus 2.7 Magnesium 2.0 Total Bilirubin 0.2 L AST 11 ALT < 7 L Alkaline Phosphatase 43 L Total Protein 6.3 Albumin 3.9 Globulin 2.4 Albumin/Globulin Ratio 1.6 ABG Interpretation ABG results: 03/16/25 03/16/25 03/16/25 01:50 05:49 08:55 ABG pH 7.30 L 7.53 H D 7.47 H ABG pCO2 103 H* 62 H D 69 H ABG pO2 367 H 46 L* D 58 L* ABG HCO3 50 H 51 H 50 H ABG O2 Saturation 98 89 L 92 ABG Base Excess 19 H 24 H 22 H Quality Measures Quality Measures none Assessment & Plan Assessment Current Active Medications: Generic Name Dose Route Start Last Admin Trade Name Freq PRN Reason Stop Dose Admin Acetaminophen 650 mg 03/16/25 03:17 Acetaminophen 325 Mg Tablet PO 04/15/25 03:16 Q6H PRN Fever >101.5 Albuterol/Ipratropium 3 ml 03/16/25 07:00 03/18/25 07:20 Albuterol/Ipratropium (Duoneb) Rt Marita 3 Ml Nebu INH 04/15/25 06:59 3 ml Q6HRRT FREDIS Administration Atorvastatin Calcium 20 mg 03/17/25 21:00 03/17/25 21:27 Atorvastatin Calcium 20 Mg Tablet PO 04/16/25 20:59 20 mg HS FREDIS Administration Enoxaparin Sodium 40 mg 03/16/25 09:00 03/18/25 09:09 Enoxaparin Sod Inj 40 Mg/0.4 Ml Syringe SC 03/30/25 08:59 40 mg QDAY FREDIS Administration Furosemide 40 mg 03/17/25 09:00 03/18/25 09:09 Furosemide Inj 10 Mg/Ml 4ml Vial IVP 04/16/25 08:59 40 mg QDAY FREDIS Administration Azithromycin 500 mg/ Sodium 250 mls @ 250 mls/hr 03/16/25 11:00 03/18/25 11:13 Chloride IV 03/23/25 10:59 Infused QDAY FREDIS Infusion Ceftriaxone Sodium/Dextrose 1 gm in 50 mls @ 100 mls/hr 03/17/25 09:59 03/18/25 11:12 Rocephin/D5w 1gm Iv Premix IV 03/24/25 09:58 Infused QDAY FREDIS Infusion Ondansetron HCl 4 mg 03/16/25 03:17 Ondansetron Inj 2 Mg/Ml Inj 2 Ml IV 04/15/25 03:16 Q6H PRN NAUSEA OR VOMITING Protocol Pantoprazole Sodium 40 mg 03/18/25 09:00 03/18/25 09:09 Pantoprazole 40 Mg Tablet PO 04/17/25 08:59 40 mg QDAY FREDIS Administration Protocol Permethrin 0 gm 03/16/25 05:15 03/16/25 08:44 Permethrin Cr 5% 60 Gm Tube TOP 04/15/25 05:14 60 gm UD FREDIS Administration Prednisone 40 mg 03/18/25 10:15 03/18/25 11:09 Prednisone 20 Mg Tablet PO 04/17/25 10:14 Not Given QDAY FREDIS Fluticasone/Salmeterol 1 puff 03/17/25 07:00 03/18/25 07:20 Fluticasone/Salmeterol 250/50 14 Dose Inh INH 04/16/25 06:59 1 puff BIDRT FREDIS Administration Sennosides 1 tab 03/16/25 09:00 03/18/25 09:09 Senna Tablet PO 04/15/25 08:59 1 tab QDAY FREDIS Administration Protocol Sodium Chloride 3 ml 03/16/25 01:32 Sodium Chloride Rt Marita 0.9% 3 Ml Nebu INH 04/15/25 01:31 PRN PRN SOLN Plan Assessment Patient is a 64 year old male with past medical history of HLD, HTN, COPD (with 8 admission this year for COPD exacerbation). Admitted on 03/16/2025 for acute on chronic hypercapnia respiratory failure secondary requiring mechanical ventilation. Patient is currently downgraded on telemetry floor. #Acute on chronic hypercapnia respiratory failure #COPD exacerbation #Community Acquired Pneumonia #Bacteremia, pending final culture and sensitivity results Gold COPD stage: Gold E Patient is known to our service, has had 8 exacerbations this year Patient does exhibit medical noncompliance Patient is a chronic CO2 retainer Patient will need strict outpatient follow-up, and will require LABA, LAMA and ICS One blood culture shows GPC, likely contaminant however still pending for the final results. Plan: ? Azithromycin and ceftriaxone IV ? Switch Solu-Medrol to prednisone 40 mg p.o. daily from tomorrow ? Oxygen saturation goals of 88 to 92% ? Wean off oxygen as tolerated ? BiPAP at night ? DuoNeb every 6 hours ? Follow-up blood cultures ? Advair twice daily #Metabolic alkalosis most likely secondary to Lasix #History of HFpEF, w G1DD #History of paroxysmal A-fib I was not able to find a EKG that showed atrial fibrillation Patient could have paroxysmal atrial fibrillation, however patient is poor historian Patient is not on any anticoagulation at this time Echo in 2023 shows grade 1 diastolic dysfunction, EF 55 to 60%, normal LV 03/14/2005, sodium bicarb increased to 39. Plan: ? Telemetry ?Give the patient 1 dose of Diamox 500 mg x 1 IV, reevaluate tomorrow ? Keep magnesium and potassium above 2 and 4 respectively ? Continue with rate control ? Lasix 40 mg IV twice daily ? Strict I's and O's ? Fluid restriction #Respiratory Acidosis with Metabolic Alkalosis, improving Patient is a chronic CO2 retainer, and will have metabolic alkalosis for compensation Patient's baseline bicarb could be around 38 Patient will have different compensation patterns due to patient's chronic CO2 retainment Plan: ? Treat as above ? Trend CMP #Hypertension #Hyperlipidemia Chronic Plan: ? Holding blood pressure medicines as blood pressures soft at this point ? Resumed home Lipitor 20 mg at bedtime #Chronic, Normocytic Anemia Hgb 11.9 today Plan: ? Trend CBC ? Outpatient follow-up #Acute Encephalopathy, secondary to acute hypercapnia respiratory failure, resolved #Health Maintenance Disposition: Telemetry DVT prophylaxis: Lovenox GI prophylaxis: Protonix Diet: Cardiac CODE STATUS: Full - Patient's plan and care discussed with my attending, Dr.Tingle Mauricio Logan MD Internal Medicine PGY-2 Attending Provider Attestation/Addendum I have discussed and was present for the essential components of the history, physical examination, diagnosis, and treatment plan with the resident. I agree with the patient's care as documented by the resident and amended herein by me. Herman Gruber DO. Patient seen and evaluated this AM. No acute events overnight, vital signs stable, patient afebrile presently on 4 L NC, SpO2 99%, I/O 2700/5250, no subjective complaints by the patient. Significant labs include a bicarb of 39. Will continue to diurese, continue steroids and antibiotic coverage for pneumonia. Will also give a dose of acetazolamide today for alkalosis. Blood cultures did demonstrate GPC's x 1 set, likely contamination. Will continue to monitor closely, the patient demonstrates further clinical improvement, likely DC in 1 to 2 days back home. Although this document has been carefully reviewed, there may still be some phonetic and other typographical errors. These errors are purely grammatical due to imperfections in the software program and should not be construed in any way to compromise the substance of the patient's medical care during this visit.
[2025-03-18] MEDS: ATORVASTATIN CALCIUM 20 MG TABLET PO (20:17)
[2025-03-19] VITALS (12 sets, daily range): BP systolic 108–143; BP diastolic 54–90; PULSE 68–82; RESP 12–30; TEMP 36.2–36.7; O2SAT 88–99; BMI 36.8
[2025-03-19] MEDS: ALBUTEROL/IPRATROPIUM (Duoneb) RT SOL 3 ML NEBU INH ×4 (01:37→18:58)
[2025-03-19 06:02] LABS: Basophils % (Auto) 0 % (0-2.5); Eosinophils % (Auto) 0 % (0-10); Hematocrit 43.6 % (41.0-53.0); Hemoglobin 13.6 g/dL (13.5-16.0); Immature Granulocytes % (Auto) 1 % (0-0); Lymphocytes # (Auto) 1.1 Thou/mm3 (1.0-4.8); Lymphocytes % (Auto) 15 % (10-50); Mean Corpuscular HGB Conc 31.2 g/dl (31.0-37.0); Mean Corpuscular Hemoglobin 30.3 pg (25.0-35.0); Mean Corpuscular Volume 97 fL (80-100); Monocytes # (Auto) 0.4 Thou/mm3 (0.0-0.8); Monocytes % (Auto) 6 % (0-12); Neutrophils # (Auto) 5.4 Thou/mm3 (1.8-7.7); Neutrophils % (Auto) 77 % (37-80); Nucleated Red Blood Cell % 0 /100 WBC (0); Platelet Count 135 Thou/mm3 (140-440); RDW Standard Deviation 51.4 fL (35.1-43.9); Red Blood Count 4.49 Miln/mm3 (4.50-5.90)
[2025-03-19] MEDS: FLUTICASONE/SALMETEROL 250/50 14 DOSE INH 1 PUFF INH ×2 (06:28→18:58)
[2025-03-19 07:11] LABS: Albumin, Serum 4.5 gm/dL (3.4-4.8); Albumin/Globulin Ratio 1.7 (1.2-2.2); Alkaline Phosphatase 50 U/L (46-116); Anion Gap 7 (7-16); Aspartate Amino Transferase 11 U/L (0-34); BUN/Creatinine Ratio 21 Ratio (12-20); Bilirubin,Total 0.3 mg/dL (0.3-1.2); Blood Urea Nitrogen 17 mg/dL (9-23); Calcium 9.2 mg/dL (8.3-10.6); Calcium (Corrected) 9.2 mg/dL (8.5-10.1); Carbon Dioxide 36.4 mMol/L (20.0-31.0); Chloride 98 mMol/L (98-107); Creatinine (Component) 0.8 mg/dL (0.6-1.3); Estimated Creatinine Clearance 113.7 mL/min (>60); Globulin 2.7 gm/dL (2.3-3.5); Glucose 133 mg/dL (74-106); Magnesium 2.1 mg/dL (1.6-2.6); Osmolality,Calculated 284 (275-295); Phosphorous 2.7 mg/dL (2.4-5.1); Potassium 3.8 mMol/L (3.4-5.1); Sodium 141 mMol/L (136-145); Total Protein 7.2 gm/dL (5.7-8.2); eGFR > 60 See Note
[2025-03-19 07:24] LABS: Alanine Aminotransferase 8 U/L (10-49)
[2025-03-19] MEDS: CEFEPIME INJ 2 GM in SODIUM CHLORIDE 0.9% (Popper) 50 ML IV ×2 (08:50→14:32)
[2025-03-19] MEDS: FUROSEMIDE INJ 10 MG/ML 4ML VIAL 40 MG IVP (08:50)
[2025-03-19] MEDS: SENNA TABLET 1 TAB PO (08:52)
[2025-03-19] MEDS: PANTOPRAZOLE 40 MG TABLET PO (08:52)
[2025-03-19] MEDS: predniSONE 20 MG TABLET 40 MG PO (08:52)
[2025-03-19] MEDS: ENOXAPARIN SOD INJ 40 MG/0.4 ML SYRINGE SC (08:52)
--- NOTE | 2025-03-19 11:07 | PC.CC ---
received HH orders, referral initiated in [facility], referrals need to be sent
--- NOTE | 2025-03-19 11:47 | ESDS_ITS ---
Planned Discharge Date 03/19/25 DS: Providers Provider Date of admission: 03/16/25 03:17 Primary care physician: Physician No Primary/Family Admitting Provider: Juan Carlos Cruz MD Attending Provider on Admission: Hong Gruber DO Consults: 03/17/25 11:17 Referral Physical Therapy Routine Comment: Physician Instructions: Attending Provider on DC: Mauricio Logan MD Discharging Provider: Mauricio Logan MD DS: Diagnosis Problem List Completed Was Problem List Reviewed/Reconciled?: Yes Hospital Course Hospital Course Hospital course: A 64-year-old male patient with past medical history of severe COPD on 4 L of oxygen at home and multiple admissions to the hospital and intubations, HFpEF, questionable paroxysmal A-fib, hypertension, hyperlipidemia, was brought to the hospital by EMS for severe shortness of breath. After this started initial assessment patient collapsed in front of the EMS in which they started to bag the patient. At the ED patient was found to have GCS of 8 and was intubated and admitted to the ICU. Patient stayed intubated for 1 day and was extubated and downgraded to telemetry. patient during this hospitalization was treated for acute on chronic hypoxic hypercapnic respiratory failuresevere COPD exacerbation, pneumonia, CHF exacerbation. Patient was started on DuoNebs, steroid, ceftriaxone, azithromycin, cefepim. During his stay in telemetry patient was found to have one of the blood culture bottles secondary to Staphylococcus epididymitis most likely contamination and sputum culture also showed Pseudomonas aeruginosa patient was started on levofloxacin according to the blood and sputum culture and sensitivity. Patient was also found to have scabies in which she was put on contact isolation and was started a single treatment of permethrin, instructed to complete treatment at home. We referred him to the social workers for possible resources to help the patient prevent further scabies infection. It was reported that the patient may have paroxysmal A-fib, however on review of all the patient's telemetry strips during his stay at the hospital, all the EKGs from 2023 to now, were negative for any episode of A-fib, for that reason we instructed the patient to follow-up in outpatient settings with a letter carrier. patient deemed to be clinically stable for discharge and was given the following instructions: Use medications as prescribed Follow-up with your primary care physician within 1 week from discharge Follow-up with your. Care provider regarding your low hemoglobin level (low blood level) We noticed that your blood pressure fluctuate between normal and mild elevation, for that reason follow-up with your primary care provider for close monitoring Use inhalers as instructed Use antibiotics levofloxacin 750 mg daily for 5 days In case of worsening of your symptoms or any medical emergency please return to the ED as soon as possible If you do not have a primary care physicain you can follow up with Dr Mauricio Logan [address] [place] [address] [place] [address]. Phone number [phone] For your scabies, wash and dry all clothing and bedding on the hot cycle to kill the mites and apply the permethrin prescription cream as directed on your skin. Discharge diagnosis #Acute on chronic hypercapnic hypoxic respiratory failure #Severe COPD exacerbation #Pneumonia secondary to Pseudomonas infection #HFpEF exacerbation #Hypertension #History of hyperlipidemia - Patient's plan and care discussed with my attending, Dr. Yasmani Logan MD Internal Medicine PGY-2 Time Spent with Patient Time attestation: Total time spent providing and/or coordinating discharge services: Time spent: Greater than 30 minutes Home Health Home Health Referral Orders: 03/19/25 10:59 Home Health Referral Routine Reason For Exam: debility Home-Bound The patient must either because of illness or injury, need the aid of supportive devices such as crutches, canes, wheelchairs, and walkers; the use of special transportation; or the assistance of another person in order to leave their place of residence; OR have a condition such that leaving his or her home is medically contraindicated. In addition, the patient also meets the following criteria: patient is normally unable to leave the home and leaving home requires considerable taxing effort. Addendum to Home Health Certification Practitioner's Certification: I certify that the patient has been under my care in the hospital and the care of attending physician (see below). We had a bfwv-cg-gnxe encounter on (see date below). My clinical findings indicate that the patient is home bound per the above criteria and the Home Health Services noted in these orders are medically necessary. The primary reason for the xvdw-px-mikr encounter is related to the fact that the patient requires home health services. 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 Palliative Treatment: No Palliative treatment and evaluate the need for hospice. Home Health Aide - Personal Care: No Home Health Aide to assist with any ADL's. Exam Vital Signs Temp Pulse Resp BP Pulse Ox O2 Del Method O2 Flow Rate 97.2 F 70 30 H 121/70 88 L Humidified Nasal Cannula 2 03/19/25 08:00 03/19/25 08:50 03/19/25 08:00 03/19/25 08:50 03/19/25 08:00 03/19/25 08:00 03/19/25 08:00 FiO2 3 03/19/25 08:00 Narrative Exam GEN: AOx3, able to speak full sentences HEENT: NC/AC, PERRLA, oral mucosa moist, neck supple CVS: RRR, S1-S2 present, no murmurs appreciated RESP: Faint wheezing bilaterally with rhonchi. GI: soft,non distended, non tender, NBS MSK: able to move all 4 limbs, no lower extremity edema SKIN: Dry scaly skin X RAY PHYSICIAN: CN II-XII and Sensation grossly intact. Discharge Plan Plan Patient Disposition: HOME (Self Care) Patient condition on transfer: Stable Care Plan Goals: Use medications as prescribed Follow-up with your primary care physician within 1 week from discharge Follow-up with a letter carrier to rule out paroxysmal A-fib Follow-up with your. Care provider regarding your low hemoglobin level (low blood level) We noticed that your blood pressure fluctuate between normal and mild elevation, for that reason follow-up with your primary care provider for close monitoring Use inhalers as instructed Use antibiotics levofloxacin 750 mg daily for 5 days In case of worsening of your symptoms or any medical emergency please return to the ED as soon as possible If you do not have a primary care physicain you can follow [place] [address]. Phone number [phone] For your scabies, wash and dry all clothing and bedding on the hot cycle to kill the mites and apply the permethrin prescription cream as directed on your skin. Prescriptions/Referrals Prescriptions/Med Rec: New atorvastatin 20 mg Tablet 20 mg PO HS 7 Days Qty: 7 0RF prednisone 5 mg tablet See Taper PO QDAY Qty: 20 0RF Taper: Prednisone Taper 20 mg DAILY for 2 Days and 0 Hour 10 mg DAILY for 2 Days and 0 Hour 5 mg DAILY for 7 Days and 0 Hour levofloxacin 750 mg tablet 750 mg PO QDAY 5 Days Qty: 5 0RF permethrin 5 % cream 1 applic topical Q14D Qty: 60 0RF Rx Instructions: apply second treatment 14 days after first treatment if live lice remain Continued nicotine 21 mg/24 hr Patch 24 Hour 21 mg top QDAY PRN (Reason: Nicotine Cravings) Qty: 7 0RF albuterol sulfate 90 mcg/actuation aerosol powdr breath activated 2 inh inhalation Q6H PRN (Reason: shortness of breath or wheezing) Qty: 1 3RF Trelegy Ellipta 200-62.5-25 mcg blister with device 1 inh inhalation Q24H Qty: 60 0RF Changed furosemide 40 mg tablet 40 mg PO QDAY 7 Days Qty: 7 0RF Patient Comments: TAKE ONE TABLET BY MOUTH TWICE DAILY A DIURETIC Referrals: No Primary/Family,Physician [Primary Care Provider] - Patient/Caregiver Discharge Instructions Education Materials: Preventing Pneumonia, Breathing Controlled Dc, Preventing Common Respiratory ... Print Language: Upper Sorbian Stand Alone Forms: [facility] Award Info., Patient Portal Info Letter Discharge Order Discharge Orders: Discharge (Routine); Ordered 03/19/25 Ordered By: Mauricio Logan Quality Discharge Quality Measures VTE prophylaxis Attestestation Attestation I have discussed and was present for the essential components of the discharge history, physical examination, diagnosis, and discharge treatment plan with the resident. I agree with the patient's discharge care as documented by the resident and amended herein by me. Herman Gruber DO. The patient understood all discharge instructions, all questions were answered satisfactorily. The patient was instructed to return to the Emergency Department is symptoms worsened or persisted. Patient stable for discharge today, presently on 3 L nasal cannula, SpO2 96%. Patient will be discharged with a course of Levaquin, see resident note above for additional details. We discussed the need for smoking cessation over the patient states that will be impossible plans to continue smoking. Patient also came in with scabies, he was instructed to wash all of his bedding and clothing in hot water and dry them on the hottest setting to eradicate the possible infection in his home. I also ordered home health for an RN safety evaluation. We also explained to the patient the necessity for medication compliance and he understood, all questions were answered satisfactorily, the patient was stable, afebrile, tolerating p.o. intake and ambulatory at time of discharge home. Although this document has been carefully reviewed, there may still be some phonetic and other typographical errors. These errors are purely grammatical due to imperfections in the software program and should not be construed in any way to compromise the substance of the patient's medical care during this visit.
--- NOTE | 2025-03-19 15:26 | PC.SS ---
SS contacted [facility], reservation [id number] provided by Jigna. Jigna stated patient would be picked up at 1750, [facility] was requested. SS submitted documents to [facility] via [employer]. [facility] placed transport on willl until [facility] provides auth. JAY Salinas informed of ETA. SS informed by JAY Persaud patient ready for discharge and needs transportation and oxygen. SS met with patient at bedside to confirm oxygen at home, patient explained he lives alone and has no way of getting his oxygen. Patient stated his oxygen provider is [facility]. SS consulted with Dr. Logan, SS informed patient would benefit from ambulance transport due to not having oxygen tank available for a safe discharge and scabies precautions. SS contacted [facility], he stated they do not provide oxygen for transports at this time. SS contacted [facility] to request oxygen for patient as previous notes indicate patient was connected with [facility] in 11/2024. [facility] stated they are no longer contracted with patient's insurance.
[2025-03-19] MEDS: ATORVASTATIN CALCIUM 20 MG TABLET PO (20:57)
--- NOTE | 2025-03-20 13:04 | PC.CC ---
Complete home health referral sent via [employer], awaiting responses.
--- NOTE | 2025-03-21 09:13 | PC.CC ---
Addendum entered by Laura Leone RN 03/21/25 09:14: [facility] accepted the pt and it was booked by [facility] transfer nurse. Start of care date is 03/22/25. Original Note: elvis ZAMBRANO orders and dc summary sent to [facility] ZAMBRAN[facility].
== END 2025-03-19 22:18 | disposition home or self-care (01) | DRG 208 ==
LOC: SERX 02:28 → SERHOLD 04:06 → S2SX 06:13 → S2NX 22:38
PROVIDERS: Internal Medicine; Student in an Organized Health Care Education/Training Program; Admitting Provider Internal Medicine; Emergency Provider Emergency Medicine; Visit Provider Student in an Organized Health Care Education/Training Program
DX: J44.1 Chronic obstructive pulmonary disease with (acute) exacerbation (principal); J96.22 Acute and chronic respiratory failure with hypercapnia; I50.33 Acute on chronic diastolic (congestive) heart failure; J15.1 Pneumonia due to Pseudomonas; J96.21 Acute and chronic respiratory failure with hypoxia; G93.49 Other encephalopathy; E87.4 Mixed disorder of acid-base balance; J44.0 Chronic obstructive pulmonary disease with (acute) lower respiratory infection; I11.0 Hypertensive heart disease with heart failure; I48.0 Paroxysmal atrial fibrillation; E78.5 Hyperlipidemia, unspecified; E83.39 Other disorders of phosphorus metabolism; D69.6 Thrombocytopenia, unspecified; E87.5 Hyperkalemia; E87.8 Other disorders of electrolyte and fluid balance, not elsewhere classified; B86 Scabies; E78.00 Pure hypercholesterolemia, unspecified; D63.8 Anemia in other chronic diseases classified elsewhere; Z95.1 Presence of aortocoronary bypass graft; Z78.9 Other specified health status; Z79.82 Long term (current) use of aspirin; Z79.899 Other long term (current) drug therapy; Z87.891 Personal history of nicotine dependence; Z91.199 Patient's noncompliance with other medical treatment and regimen due to unspecified reason
CPT/HCPCS: 36415; 36600; 80053; 80307; 81001; 82803; 83605; 83735; 84100; 84145; 84484; 85025; 85610; 85730; 87040; 87077; 87081; 87086; 87186; 87205; 87811; 94002; 94640; 94644; 96374; 96375; 97161; 99285; A9270; C1751; J0330; J0456; J0692; J0696; J1120; J1650; J1938; J2250; J2470; J2704; J2919; J3010; J3490; J7050; J7512

== ENCOUNTER 2025-03-25 08:29 | Inpatient (IN) | payer MEDICARE, MEDICAID, SELFPAY ==
[2025-03-25] VITALS (39 sets, daily range): BP systolic 95–181; BP diastolic 53–113; PULSE 48–100; RESP 12–84; TEMP 36.8–37.2; O2SAT 84–100; BMI 33.2
--- NOTE | 2025-03-25 08:40 | EKG_ITS ---
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
--- NOTE | 2025-03-25 08:42 | XR_ITS ---
Examination: AP chest single view Technique one AP portable semiupright chest single view Date and time: March 25, 2025 0928 hrs. Comparison March 16, 2025 Indications: Chest pain shortness of breath today. Findings: Mild enlargement cardiac contour. Moderate vascular congestion. Early pneumonia left base. Moderate osteopenia Impression: Early pneumonia left base
[2025-03-25 08:59] LABS: Base Excess 20 (-3-3); HCO3 54 mEq/L (20-26); Inspired O2, VO2 Liters 4 L/min; Inspired Oxygen, FIO2 21 %; O2 Saturation 89 % (91-98); PCO2 129 mmHg (32.0-48.0); pH, Arterial 7.23 (7.35-7.45)
[2025-03-25 09:01] LABS: Allen Test Performed/OK; Puncture Site Left Radial
[2025-03-25] MEDS: SODIUM CHLORIDE RT SOL 0.9% 3 ML NEBU INH (09:01)
[2025-03-25] MEDS: ALBUTEROL RT 2.5 MG/0.5 ML NEBU 10 MG INH (09:01)
[2025-03-25] MEDS: IPRATROPIUM RT 0.5 MG/ 2.5 ML NEBU INH (09:02)
[2025-03-25 09:03] LABS: PO2 58 mmHg (83-108)
--- NOTE | 2025-03-25 09:07 | PC.NURSE ---
BIBA FROM HOME FOR INCREASES SOB. PT USES O2 AT HOME 3 TO 4 L. ACCORDING TO EMS PT DENIED GOING ABOVE 6L. PT STATES THAT NORMAL O2SATS IS AROUND 88%
[2025-03-25] MEDS: MethylPREDNISolone SOD SUCC 62.5 MG/ML 2ML VIAL 125 MG IVP (09:12)
--- NOTE | 2025-03-25 09:18 | PD.EDSOB ---
ED SOB =RME/HPI General Chief Complaint: Shortness of Breath/Dyspnea Stated Complaint: SOB Time Seen by Provider: 03/25/25 08:42 Arrival date/time: 03/25/25 08:29 RME / HPI RME / HPI Narrative: 64 year old male with history of COPD on 4L home O2, multiple admissions and intubation (most recently intubated 03/16/2025), HFpEF 55-60% 09/2024, s/p CABG, AFib, hypertension, hyperlipidemia presents to the ED BIBA from home for evaluation of shortness of breath beginning yesterday and progressively worsening. Per medics, on scene patient was visibly working to breathe and saturating 88% on 4L nasal cannula. On arrival to ED patient unable to provide any further history due to mental status. Related Data Previous Rx's ?Medication ?Instructions ?Recorded nicotine 21 mg/24 hr daily 21 mg top QDAY PRN Nicotine 12/31/24 transdermal patch Cravings #7 ea albuterol sulfate 90 mcg/actuation 2 inh inhalation Q6H PRN shortness 03/19/25 breath activated powder inhaler of breath or wheezing #1 ea atorvastatin 20 mg tablet 20 mg PO HS 7 days #7 tabs 03/19/25 fluticasone fur. 200 mcg-umeclid 1 inh inhalation Q24H #60 ea 03/19/25 62.5 mcg-vilant 25 mcg inhalat.powder (Trelegy Ellipta) furosemide 40 mg tablet 40 mg PO QDAY 7 days #7 tabs 03/19/25 permethrin 5 % topical cream 1 applic topical Q14D 2 doses #60 03/19/ grams prednisone 5 mg tablet See Taper PO QDAY #20 tabs 03/19/25 Allergies Allergy/AdvReac Type Severity Reaction Status Date / Time No Known Allergies Allergy Verified 01/21/25 12:16 Review of Systems Review of Systems ROS Unobtainable: unobtainable due to mental status Past Medical History Past Medical History NEUROLOGIC: Positive Seizures CARDIAC: Positive Cardiac Disorders, Atrial Fibrillation, Hypercholesterolemia, Congestive Heart Failure and Hypertension RESPIRATORY: Positive Chronic Obstructive Pulmonary Disease (COPD), Asthma and Pneumonia GASTROINTESTINAL: Positive Obesity GENITOURINARY: Positive Genitourinary Disorders PSYCHO/SOCIAL: Positive Recreational Drug Use and Anxiety OTHER HISTORY: Positive Falls Surgical History SURGICAL: Positive Open Heart Surgery and Coronary Artery Bypass Graft Social History SMOKING STATUS: Heavy (> 1 pack/day) SECOND HAND EXPOSURE: No SUBSTANCE USE: does not use ED Exam Narrative Physical exam: GENERAL APPEARANCE: Arousable to voice, well-developed, well-nourished HEENT: Normocephalic, atraumatic; pupils equal, round, reactive to light; EOMI; mucous membranes pink, moist; oropharynx clear NECK: Supple LUNGS: severely decreased breath sounds bilaterally HEART: Regular rate, regular rhythm; normal S1, S2; no murmurs ABDOMEN: non distended; normal BS; soft, no tenderness, no guarding, no rebound; no masses, no organomegaly, no hernia BACK: no CVA tenderness EXTREMITIES: atraumatic; no edema NEUROLOGIC: Arousable to voice, no focal deficits SKIN: warm, dry, normal color; no rashes Course Quality Measures none Orders Category Date Time Status Progressive Care Nurse NOW Care 03/25/25 08:42 Active EKG (ED ONLY) *Do not use* NOW Care 03/25/25 08:40 Completed Intubation NOW Care 03/25/25 15:[address] head/brain wo con Stat Exams 03/25/25 15:41 Ordered EKG (ED Only) Stat Exams 03/25/25 08:40 Draft XR chest 1V portable Stat Exams 03/25/25 08:42 Completed XR chest 1V post procedure Stat Exams 03/25/25 16:08 Completed ABG [Arterial Blood Gas] Stat Lab 03/25/25 08:55 Completed ABG [Arterial Blood Gas] Stat Lab 03/25/25 13:08 Completed Arterial Blood Gas Stat Lab 03/25/25 16:45 Completed B-Type Natriuretic Peptide Stat Lab 03/25/25 09:05 Completed CBC Stat Lab 03/25/25 09:05 Completed Comprehensive Metabolic Panel Stat Lab 03/25/25 09:05 Completed Lipase Stat Lab 03/25/25 09:05 Completed Magnesium Stat Lab 03/25/25 09:05 Completed Partial Thromboplastin Time Stat Lab 03/25/25 09:05 Completed Prothrombin Time with INR Stat Lab 03/25/25 09:05 Completed Sputum Culture and Gram Stain Stat Lab 03/25/25 16:48 Received Troponin I Stat Lab 03/25/25 09:05 Completed UA, C/S IF [Urinalysis, C/S if Indicated] Stat Lab 03/25/25 15:41 Completed ALBUTEROL RT 0.5ml [Proventil Rt 0.5ml] Med 03/25/25 08:51 Discontinued 10 mg INH X1 ONE Etomidate Inj [Amidate Inj] Med 03/25/25 14:48 Discontinued 20 mg IVP X1 ONE Ipratropium [place] Rt Marita [Atrovent Rt Marita] Med 03/25/25 08:51 Discontinued 0.5 mg INH X1 ONE MethylPREDNISolone.* [SoluMEDROL Inj] Med 03/25/25 08:51 Discontinued 125 mg IVP X1 ONE Midazolam/Ns 100 mg Ivpb [Versed Pf Inj in Ns Premix] Med 03/25/25 15:37 Discontinued 100 mg in 100 ml IV 1 mg/hr Rocuronium Inj [Zemuron Inj] Med 03/25/25 14:48 Discontinued 50 mg IVP X1 ONE Sodium Chloride Rt Mairta 0.9% [NS Rt Marita 0.9%] Med 03/25/25 08:51 Active 3 ml INH PRN PRN Sodium Chloride Rt Marita 10% [NS Rt Marita 10%] Med 03/25/25 15:41 Discontinued 5 ml INH X1 ONE fentaNYL 2,500 MCG/250 ML BAG [Sublimaze Inj 2,500 MCG/ Med 03/25/25 16:01 Discontinued 250 ML BAG] 2,500 mcg in 250 ml IV 25 mcg/hr BiPAP / CPAP NOW RT 03/25/25 09:15 Completed Sputum Induction PRN RT 03/25/25 15:45 Ordered Volume Ventilator Routine RT 03/25/25 15:40 Active Vital Signs Vital signs: Vital Signs Temperature 99.0 F 03/25/25 08:29 Pulse Rate 85 03/25/25 08:29 Respiratory Rate 22 H 03/25/25 08:29 Blood Pressure 181/69 H 03/25/25 08:29 Pulse Oximetry (%) 96 03/25/25 08:29 Oxygen Delivery Method Nasal Cannula 03/25/25 08:29 Oxygen Flow Rate 6 03/25/25 08:29 Shortness of Breath / Dyspnea MDM Narrative MDM Narrative:: Cherise Doshi am scribing for and in the presence of Dr. Mcmullen. 0925: Patient still working to breathe, ordered bipap. 1306: After 3 hours of being on bipap the patient appears to be more altered and is only minimally responsive. Plan to intubate. Refer to residents intubation note. Patient data External records reviewed:: [facility] previous records (I reviewed admission from 03/16/2025 through 03/19/2025 for for acute on chronic hypercapnia respiratory failure requiring mechanical ventilation. ) and EMS form Clinical information provided by:: EMS Social determinants that could affect healthcare access:: other (specify) (active tobacco smoker ) Patient has the following chronic illnesses:: COPD on 4L home O2, multiple admissions and intubation (most recently intubated 03/16/2025), HFpEF 55-60% 09/2024, AFib, hypertension, hyperlipidemia How is presenting disease/condition affected by chronic disease/condition?: exacerbated by Evaluation data The following diagnostics were reviewed and interpreted by me:: lab results, radiology exam(s) and EKG tracing(s) (EKG @ 08:42 AM. Sinus rhythm, rate 93, no STEMI. ) Lab and/or radiology exams considered but not ordered:: None Interpretation Summary: Ordering Physician: Kinjal Mcmullen MD Date of Service: 03/25/25 Procedure(s): XR chest 1V portable Accession Number(s): [id number] cc: Nickolas Jones MD; Thanh Kevin MD; Kinjal Mcmullen MD~ Examination: AP chest single view Technique one AP portable semiupright chest single view Date and time: March 25, 2025 0928 hrs. Comparison March 16, 2025 Indications: Chest pain shortness of breath today. Findings: Mild enlargement cardiac contour. Moderate vascular congestion. Early pneumonia left base. Moderate osteopenia Impression: Early pneumonia left base Dictated By: Thanh Kevin MD Signed By: <Electronically signed by Thanh Kevin MD in OV> 03/25/25 1012 Ordering Physician: Kinjal Mcmullen MD Date of Service: 03/25/25 Procedure(s): XR chest 1V post procedure Accession Number(s): [id number] cc: Nickolas Jones MD; Thanh Kevin MD; Kinjal Mcmullen MD~ Examination: AP chest single view Technique one AP portable semiupright chest single view Date and time: March 25, 2025, 1632 hours Comparison March 25, 2025 INDICATIONS: Hypoxic respiratory failure, left base pneumonia on chest film this a.m. FINDINGS: Endotracheal tube tip 4.2 cm above Patricia. The orogastric tube is in the stomach, the tip is below the level of the film Left base pneumonia. Mild enlargement cardiac contour. Moderate vascular congestion. Prominent osteopenia IMPRESSION: Endotracheal tube tip 4.2 cm above Patricia Left base pneumonia Dictated By: Thanh Kevin MD Signed By: <Electronically signed by Thanh Kevin MD in OV> 03/25/25 1735 Medications / Prescriptions Medications or Prescriptions considered but not ordered:: None Medication administrations:: Medication Administration History Albuterol/Ipratropium (Albuterol/Ipratropium (Duoneb) Rt Marita 3 Ml Nebu) 3 ml INH Q2HR PRN PRN Reason: SHORTNESS OF BREATH OR WHEEZE Stop: 04/24/25 17:30 Albuterol/Ipratropium (Albuterol/Ipratropium (Duoneb) Rt Marita 3 Ml Nebu) 3 ml INH Q6HRRT FREDIS Stop: 04/24/25 18:59 Famotidine (Famotidine 20 Mg Tablet) 20 mg PO BID FREDIS Stop: 04/24/25 20:59 Heparin Sodium (Porcine) (Heparin Sod Inj 5000 Unit/Ml Vial) 5,000 unit SC Q8HR FREDIS Stop: 04/08/25 21:59 Fentanyl Citrate (Sublimaze Inj 2,500 Mcg/250 Ml Bag) 2,500 mcg in 250 mls @ 2.5 mls/hr IV .Q24H PRN; Protocol PRN Reason: PER PROTOCOL Stop: 03/30/25 16:22 Last Titration: 03/25/25 17:53 Dose: 75 mcg/hr, 7.5 mls/hr Documented By: Admin: 03/25/25 16:29 Dose: 25 mcg/hr, 2.5 mls/hr Documented By: FRANKIE Co-signed By: NERI Azithromycin 500 mg/ Sodium (Chloride) 250 mls @ 250 mls/hr IV QDAY FREDIS Stop: 04/02/25 08:59 Dexmedetomidine/Sodium Chloride (Precedex Ivpb) 400 mcg in 100 mls @ 5.557 mls/hr IV .Q18H PRN; Protocol PRN Reason: Per PROTOCOL Stop: 04/24/25 17:46 Azithromycin 500 mg/ Sodium (Chloride) 250 mls @ 250 mls/hr IV X1 ONE Stop: 03/25/25 18:59 Last Admin: 03/25/25 18:04 Dose: 250 mls/hr Documented By: FRANKIE Midazolam HCl (Versed Pf Inj In Ns Premix) 100 mg in 100 mls @ 1 mls/hr IV .Q24H PRN; Protocol PRN Reason: PER PROTOCOL Stop: 03/30/25 17:52 Piperacillin/Tazobactam/Dextrose (Zosyn) 3.375 gm in 50 mls @ 12.5 mls/hr IV Q8HR FREDIS Stop: 04/01/25 21:59 Piperacillin/Tazobactam/Dextrose (Zosyn) 3.375 gm in 50 mls @ 100 mls/hr IV X1 ONE Stop: 03/25/25 18:44 Methylprednisolone Sodium Succinate (Methylprednisolone Sod Succ 40 Mg Vial) 40 mg IVP Q8HR FREDIS Stop: 04/01/25 21:59 Sodium Chloride (Sodium Chloride Rt Marita 0.9% 3 Ml Nebu) 3 ml INH PRN PRN PRN Reason: SOLN Stop: 04/24/25 08:50 Last Admin: 03/25/25 09:01 Dose: 3 ml Documented By: FLAKITA Discontinued Medications Albuterol (Albuterol Rt 2.5 Mg/0.5 Ml Nebu) 10 mg INH X1 ONE Stop: 03/25/25 08:52 Last Admin: 03/25/25 09:01 Dose: 10 mg Documented By: FLAKITA Etomidate (Etomidate Inj 2 Mg/Ml Vial 10 Ml) 20 mg IVP X1 ONE Stop: 03/25/25 14:49 Last Admin: 03/25/25 15:22 Dose: 20 mg Documented By: FRANKIE Midazolam HCl (Versed Pf Inj In Ns Premix) 100 mg in 100 mls @ 1 mls/hr IV .Q24H PRN PRN Reason: PER PROTOCOL Stop: 03/30/25 15:36 Last Infusion: 03/25/25 17:54 Dose: 2 mg/hr, 2 mls/hr Documented By: Admin: 03/25/25 15:51 Dose: 1 mg/hr, 1 mls/hr Documented By: FRANKIE Co-signed By: GM Fentanyl Citrate (Sublimaze Inj 2,500 Mcg/250 Ml Bag) 2,500 mcg in 250 mls @ 2.5 mls/hr IV .Q24H PRN PRN Reason: PER PROTOCOL Stop: 03/30/25 16:00 Last Infusion: 03/25/25 16:20 Dose: 75 mcg/hr, 7.5 mls/hr Documented By: Admin: 03/25/25 16:11 Dose: 25 mcg/hr, 2.5 mls/hr Documented By: FRANKIE Co-signed By: TUAN Propofol (Diprivan Ivpb) 1,000 mg in 100 mls @ 3.334 mls/hr IV .Q24H PRN; Protocol PRN Reason: PER PROTOCOL Stop: 04/24/25 16:24 Last Admin: 03/25/25 16:37 Dose: 5 mcg/kg/min, 3.334 mls/hr Documented By: FRANKIE Co-signed By: NERI Ceftriaxone Sodium/Dextrose (Rocephin/D5w 1gm Iv Premix) 1 gm in 50 mls @ 100 mls/hr IV QDAY FREDIS Stop: 04/01/25 17:30 Last Admin: 03/25/25 17:52 Dose: 100 mls/hr Documented By: FRANKIE Ipratropium [place] (Ipratropium Rt 0.5 Mg/ 2.5 Ml Nebu) 0.5 mg INH X1 ONE Stop: 03/25/25 08:52 Last Admin: 03/25/25 09:02 Dose: 0.5 mg Documented By: FLAKITA Methylprednisolone Sodium Succinate (Methylprednisolone Sod Succ 62.5 Mg/Ml 2ml Vial) 125 mg IVP X1 ONE Stop: 03/25/25 08:52 Last Admin: 03/25/25 09:12 Dose: 125 mg Documented By: ERIBERTO Rocuronium [place] (Rocuronium Inj 10 Mg/Ml Vial 10 Ml) 50 mg IVP X1 ONE Stop: 03/25/25 14:49 Last Admin: 03/25/25 15:25 Dose: 50 mg Documented By: FRANKIE Co-signed By: [facility] Sodium Chloride (Sodium Chloride Rt 10% 15 Ml Nebu) 5 ml INH X1 ONE Stop: 03/25/25 15:42 See above Consultations Consultation(s) initiated? (list below): Yes Consultation #1 (Physician, Specialty, Details): I spoke with chemical dependency counselor Dr. Issa. Discussed patients PMHx, HPI, ED course, exam findings, labs, and radiology results. Time: 15:24 Diagnosis Shortness of Breath Differential Diagnosis: acute exacerbation of chronic obstructive airways disease, congestive heart failure, community acquired pneumonia and asthma with exacerbation Most likely diagnosis given after review of the tests above:: Respiratory failure with hypercapnia Admission Indicated Admission indicated?: indicated Admission Request Was there a request for admission?: Yes Admission Attestation Admission request attestation: Discussed case with [] from Hospitalist service regarding admission. Discussed patients ED course, exam findings, labs, and radiology results. The Hospitalist [agrees,declines] to accept the patient for admission. Disposition Plan Disposition Plan: Admit Critical Care Time Critical Care Time Critical Care Time: Yes Total Critical Care Time (min.): 45 Attestation: The high probability of sudden, clinically significant deterioration in the patient's condition required the highest level of my preparedness to intervene urgently. The services I provided to this patient were to treat and/or prevent clinically significant deterioration. Services included the following: chart data review, reviewing nursing notes and/or old charts, documentation time, ada accommodation consultant collaboration regarding findings and treatment options, medication orders and management, direct patient care, vital sign assessments and ordering, interpreting and reviewing diagnostic studies and lab tests. Aggregate critical care time includes only time during which I was engaged in work directly related to the patient's care, as described above, whether at bedside or elsewhere in the Emergency Department. It did not include time spent performing other reported procedures or the services of residents, students, nurses or physician assistants. Discharge Plan Plan Patient Disposition: Admit Acute Care w/in Hospital Problem List Clinical Impression: Respiratory failure with hypercapnia
[2025-03-25 09:33] LABS: Basophils # (Auto) 0.1 Thou/mm3 (0.0-0.2); Basophils % (Auto) 1 % (0-2.5); Eosinophils # (Auto) 0.2 Thou/mm3 (0.0-0.5); Eosinophils % (Auto) 2 % (0-10); Hematocrit 47.2 % (41.0-53.0); Hemoglobin 14.3 g/dL (13.5-16.0); Immature Granulocytes % (Auto) 3 % (0-0); Immature Granulocytes Auto 0.23 Thou/mm3 (0.00-0.00); Lymphocytes # (Auto) 0.9 Thou/mm3 (1.0-4.8); Lymphocytes % (Auto) 13 % (10-50); Mean Corpuscular HGB Conc 30.3 g/dl (31.0-37.0); Mean Corpuscular Hemoglobin 30.1 pg (25.0-35.0); Mean Corpuscular Volume 99 fL (80-100); Monocytes # (Auto) 0.5 Thou/mm3 (0.0-0.8); Monocytes % (Auto) 8 % (0-12); Neutrophils # (Auto) 5.1 Thou/mm3 (1.8-7.7); Neutrophils % (Auto) 73 % (37-80); Nucleated Red Blood Cell % 0 /100 WBC (0); Platelet Count 142 Thou/mm3 (140-440); RDW Standard Deviation 52.7 fL (35.1-43.9); Red Blood Count 4.75 Miln/mm3 (4.50-5.90)
[2025-03-25 09:37] LABS: B-Type Natriuretic Peptide 62 pg/mL (0-100)
[2025-03-25 09:41] LABS: Alanine Aminotransferase 14 U/L (10-49); Albumin, Serum 4.6 gm/dL (3.4-4.8); Albumin/Globulin Ratio 1.9 (1.2-2.2); Alkaline Phosphatase 61 U/L (46-116); Anion Gap 13 (7-16); Aspartate Amino Transferase 16 U/L (0-34); BUN/Creatinine Ratio 24 Ratio (12-20); Bilirubin,Total 0.4 mg/dL (0.3-1.2); Blood Urea Nitrogen 17 mg/dL (9-23); Calcium 9.5 mg/dL (8.3-10.6); Calcium (Corrected) 9.5 mg/dL (8.5-10.1); Carbon Dioxide > 40.0 mMol/L (20.0-31.0); Chloride 90 mMol/L (98-107); Creatinine (Component) 0.7 mg/dL (0.6-1.3); Estimated Creatinine Clearance 137.2 mL/min (>60); Globulin 2.4 gm/dL (2.3-3.5); Glucose 143 mg/dL (74-106); Lipase 33 U/L (12-53); Magnesium 2.1 mg/dL (1.6-2.6); Osmolality,Calculated 288 (275-295); Potassium 5.4 mMol/L (3.4-5.1); Sodium 143 mMol/L (136-145); Troponin I < 0.020 ng/mL (0.0-0.045); eGFR > 60 See Note
[2025-03-25 09:42] LABS: Partial Thromboplastin Time 27.8 Seconds (22.0-36.0); Prothrombin Time 11.2 Seconds (9.0-12.2)
[2025-03-25 13:13] LABS: Allen Test Performed/OK; Base Excess 20 (-3-3); HCO3 51 mEq/L (20-26); Inspired Oxygen, FIO2 40 %; O2 Saturation 88 % (91-98); PCO2 104 mmHg (32.0-48.0); Puncture Site Right Radial
[2025-03-25 13:14] LABS: PO2 52 mmHg (83-108)
[2025-03-25] MEDS: ETOMIDATE INJ 2 MG/ML VIAL 10 ML 20 MG IVP (15:22)
[2025-03-25] MEDS: ROCURONIUM INJ 10 MG/ML VIAL 10 ML 50 MG IVP (15:25)
--- NOTE | 2025-03-25 15:32 | ESOP_ITS ---
<Statement entered by Kinjal Mcmullen MD - 04/04/25 01:00> I, Kinjal Mcmullen MD, have reviewed the history, exam, and assessment of the patient. I have evaluated the patient independently and agree with the plan of care documented by [ ]. All diagnostic studies were reviewed and discussed. I confirm the diagnosis as documented by the Resident. I was present during the Medical Decision Making for this patient. The patient's plan of care was created between myself and the Resident and consistent with our discussion of the patient's case. Procedures Procedure Date / Time 03/25/25 1532 Intubation Indication(s): inability to protect airway Informed consent obtained: procedure done urgently Time out done, and the following verified: correct patient, side and site, procedure, patient position and implants and/or equipment Sedative: etomidate Mg given: 20 Paralytic: rocuronium Mg given: 50 Laryngoscope: Johanna ET tube size: 7.5 ET tube uncuffed: No Tube secured depth (cm): 24 Tube secured location: teeth Tube placement confirmation: visualized tube passing through cords, equal breath sounds bilaterally, no breath sounds over epigastrium and confirmation by capnometry Patient tolerated procedure: well and no complications EBL(ml): 0 Intubation complications: none Additional comments: Procedure was performed under supervision of Dr. Mcmullen. Madi Serrato MD, PGY 2. Disclaimer: This note was dictated by speech recognition. Minor errors in bouffant curtain machine tender may be present due to voice recognition software.
[2025-03-25 15:49] LABS: Collection Type, Urine Catheter; Squamous Epithelial Cell,Urine 0 /hpf (0-5)
[2025-03-25] MEDS: MIDAZOLAM/NS 100 MG IVPB 100 MG/100 ML BAG IV ×2 (15:51→18:42)
[2025-03-25 16:05] LABS: Bilirubin,Urine Negative (Negative); Blood,Urine Negative (Negative); Clarity,Urine Clear (Clear/Hazy); Color,Urine Yellow (Lt Yel-Yel); Culture Indicated,Urine Not Indicated; Glucose, Urine Negative (Negative); Ketones,Urine Negative (Negative); Leukocyte Esterase,Urine Negative (Negative); Nitrite,Urine Negative (Negative); Protein,Urine 1+ (Neg - Trace); RBC,Urine 7 /hpf (0-3); Specific Gravity,Urine 1.031 (1.001-1.035); Transitional Epi Cells,Urine < 1 /hpf (0-5); WBC,Urine 4 /hpf (0-5)
--- NOTE | 2025-03-25 16:08 | XR_ITS ---
Examination: AP chest single view Technique one AP portable semiupright chest single view Date and time: March 25, 2025, 1632 hours Comparison March 25, 2025 INDICATIONS: Hypoxic respiratory failure, left base pneumonia on chest film this a.m. FINDINGS: Endotracheal tube tip 4.2 cm above Patricia. The orogastric tube is in the stomach, the tip is below the level of the film Left base pneumonia. Mild enlargement cardiac contour. Moderate vascular congestion. Prominent osteopenia IMPRESSION: Endotracheal tube tip 4.2 cm above Patricia Left base pneumonia
[2025-03-25] MEDS: fentaNYL 2,500 MCG/250 ML BAG 2,500 MCG/250 ML BAG IV ×2 (16:11→16:29)
[2025-03-25] MEDS: PROPOFOL 1,000 MG IVPB 1,000 MG/100 ML VIAL 3.334 MG IV (16:37)
[2025-03-25 16:51] LABS: Base Excess 19 (-3-3); HCO3 51 mEq/L (20-26); Inspired Oxygen, FIO2 75 %; O2 Saturation 92 % (91-98); PCO2 100 mmHg (32.0-48.0); PO2 65 mmHg (83-108); pH, Arterial 7.32 (7.35-7.45)
[2025-03-25 17:11] LABS: Allen Test Performed/OK; Puncture Site Left Radial
--- NOTE | 2025-03-25 17:17 | ESHP_ITS ---
<Statement entered by Dia Issa MD - 03/26/25 07:53> I reviewed the resident?s note and agree with findings and plan as documented in the resident?s note. Discussed case with emergency room attending Dr. HNUTER. Agree with intubation given low GCS on noninvasive positive pressure ventilation with respiratory acidosis. Treat underlying COPD, consider CT imaging of the brain if patient does not improve neurologically postintubation, avoid dynamic hyperinflation with sedatives. Bronchodilators ordered. Adjust ventilator to meet vent goals including plateau pressure less than 30 and no auto PEEP. Permissive hypercapnia Documentation for date of: 03/25/25 HPI History of Present Illness Chief complaint: SOB History of present illness: Mr. Lowe is a 64-year-old male with past medical history of severe COPD with multiple hospitalizations and multiple intubations on 4 l of home O2, HFpEF, paroxysmal A-fib, hypertension, hyperlipidemia who was brought into [facility] by EMS for dyspnea.? Patient was at home and was alert and oriented x 3 but he became unresponsive in front of EMS so he was bagged and brought to the emergency department.? In the emergency department he was found to have a GCS of 7 so patient was intubated.? No other history was able to be obtained. Past medical history: As documented above Past surgical history: CABG Social history: Patient has longstanding smoking history with 60 pack years and significant recreational drug use Allergies: No known drug allergies Home Meds: Patient is discharged on albuterol, Trelegy, Lasix after every hospital visit but family was only able to provide Lasix prescription so it is unclear if patient has been medically compliant In the ED patient had a blood pressure of 181/69 Pulse 85, RR 22, temperature 99, O2 sat 96 on 6 L nasal cannula Initial ABG showed a pH of 7.23 with a CO2 of 129 and a pO2 of 58 Follow-up patient was placed on a BiPAP following that episode and repeat ABG showed a pH of 7.30 with improved CO2 at 104 and a pO2 of 52 however patient's mentation continued to worsen GCS dropped to less than 7 after which the decision was made to intubate the patient. Chest x-ray showed early pneumonia in the left base and EKG showed sinus rhythm CBC was grossly within normal limits and CMP was significant for potassium of 5.4 bicarb greater than 40 and a glucose of 143 Troponins were negative at less than 0.020. Patient will be brought over to the ICU for further management of his acute on chronic hypoxic respiratory failure secondary to COPD Review of Systems Review of Systems ROS Unobtainable: unobtainable due to mental status and due to endotracheal tube Exam Vital Signs Temp Pulse Resp BP Pulse Ox O2 Del Method O2 Flow Rate 98.8 F 69 19 129/66 100 BiPAP 6 03/25/25 14:11 03/25/25 15:43 03/25/25 14:11 03/25/25 14:11 03/25/25 15:43 03/25/25 14:11 03/25/25 09:02 FiO2 50 03/25/25 15:43 Narrative Exam Constitutional: Well nourished but is somnolent Head: Normocephalic/Atraumatic Eyes: PERRL , no conjunctival injection , symmetrical lids. ENMT: Dry mucous Membranes, No trauma or injury. ET tube in place. Neck: Supple to palpation, No JVD CVS: RRR, S1 and S2 present, no murmurs, rubs or gallops . RESP: Distant breath sounds with some wheezing bilaterally. There is rhonchi on the left base GI: Normal BS, Nontender/Nondistended. MSK: Full range of motion, No trauma or deformities or masses. Skin: Warm to touch, Dry. No rashes or lesions. No hematomas Neuro: Patient withdraws poorly to noxious stimuli but prior to intubation however he began waking up a bit more after the intubation. Results: Labs 03/25/25 09:05 03/25/25 09:05 Labs: Short CBC 03/25/25 Range/Units 09:05 WBC 7.0 (3.8-10.6) Thou/mm3 Hgb 14.3 (13.5-16.0) g/dL Hct 47.2 (41.0-53.0) % Plt Count 142 (140-440) Thou/mm3 BMP 03/25/25 09:05 Sodium 143 Potassium 5.4 H Chloride 90 L Carbon Dioxide > 40.0 H BUN 17 Creatinine 0.7 Glucose 143 H Calcium 9.5 Cardiac Enzymes 03/25/25 Range/Units 09:05 Troponin I < 0.020 (0.0-0.045) ng/mL Liver Function 03/25/25 Range/Units 09:05 Total Bilirubin 0.4 (0.3-1.2) mg/dL AST 16 (0-34) U/L ALT 14 (10-49) U/L Alkaline Phosphatase 61 (46-116) U/L Albumin 4.6 (3.4-4.8) gm/dL Urine 03/25/25 Range/Units 15:41 Urine Color Yellow (Lt Yel-Yel) Urine Clarity Clear (Clear/Hazy) Urine pH 6.0 (5.0-7.0) Ur Specific [place] 1.031 (1.001-1.035) Urine Protein 1+ A (Neg - Trace) Urine Glucose (UA) Negative (Negative) ABG Interpretation ABG results: 03/25/25 03/25/25 03/25/25 08:55 13:08 16:45 ABG pH 7.23 L 7.30 L 7.32 L ABG pCO2 129 H* 104 H* D 100 H* ABG pO2 58 L* 52 L* 65 L ABG HCO3 54 H 51 H 51 H ABG O2 Saturation 89 L 88 L 92 ABG Base Excess 20 H 20 H 19 H Quality Measures Quality Measures none Medications Home Medications and Allergies Allergies Allergy/AdvReac Type Severity Reaction Status Date / Time No Known Allergies Allergy Verified 01/21/25 12:16 Visit Medications Famotidine (Famotidine 20 Mg Tablet) 20 mg PO BID FREDIS Stop: 04/24/25 20:59 Heparin Sodium (Porcine) (Heparin Sod Inj 5000 Unit/Ml Vial) 5,000 unit SC Q8HR FREDIS Stop: 04/08/25 21:59 Midazolam HCl (Versed Pf Inj In Ns Premix) 100 mg in 100 mls @ 1 mls/hr IV .Q24H PRN PRN Reason: PER PROTOCOL Stop: 03/30/25 15:36 Last Admin: 03/25/25 15:51 Dose: 1 mg/hr, 1 mls/hr Fentanyl Citrate (Sublimaze Inj 2,500 Mcg/250 Ml Bag) 2,500 mcg in 250 mls @ 2.5 mls/hr IV .Q24H PRN; Protocol PRN Reason: PER PROTOCOL Stop: 03/30/25 16:22 Last Admin: 03/25/25 16:29 Dose: 25 mcg/hr, 2.5 mls/hr Propofol (Diprivan Ivpb) 1,000 mg in 100 mls @ 3.334 mls/hr IV .Q24H PRN; Protocol PRN Reason: PER PROTOCOL Stop: 04/24/25 16:24 Last Admin: 03/25/25 16:37 Dose: 5 mcg/kg/min, 3.334 mls/hr Sodium Chloride (Sodium Chloride Rt Marita 0.9% 3 Ml Nebu) 3 ml INH PRN PRN PRN Reason: SOLN Stop: 04/24/25 08:50 Last Admin: 03/25/25 09:01 Dose: 3 ml Discontinued Medications Albuterol (Albuterol Rt 2.5 Mg/0.5 Ml Nebu) 10 mg INH X1 ONE Stop: 03/25/25 08:52 Last Admin: 03/25/25 09:01 Dose: 10 mg Etomidate (Etomidate Inj 2 Mg/Ml Vial 10 Ml) 20 mg IVP X1 ONE Stop: 03/25/25 14:49 Last Admin: 03/25/25 15:22 Dose: 20 mg Fentanyl Citrate (Sublimaze Inj 2,500 Mcg/250 Ml Bag) 2,500 mcg in 250 mls @ 2.5 mls/hr IV .Q24H PRN PRN Reason: PER PROTOCOL Stop: 03/30/25 16:00 Last Infusion: 03/25/25 16:20 Dose: 75 mcg/hr, 7.5 mls/hr Ipratropium [place] (Ipratropium Rt 0.5 Mg/ 2.5 Ml Nebu) 0.5 mg INH X1 ONE Stop: 03/25/25 08:52 Last Admin: 03/25/25 09:02 Dose: 0.5 mg Methylprednisolone Sodium Succinate (Methylprednisolone Sod Succ 62.5 Mg/Ml 2ml Vial) 125 mg IVP X1 ONE Stop: 03/25/25 08:52 Last Admin: 03/25/25 09:12 Dose: 125 mg Rocuronium Frontier (Rocuronium Inj 10 Mg/Ml Vial 10 Ml) 50 mg IVP X1 ONE Stop: 03/25/25 14:49 Last Admin: 03/25/25 15:25 Dose: 50 mg Sodium Chloride (Sodium Chloride Rt 10% 15 Ml Nebu) 5 ml INH X1 ONE Stop: 03/25/25 15:42 Assessment & Plan Plan Patient is a 64 year old male with past medical history of HLD, HTN, COPD (with 9 admission this year for COPD exacerbation). Admitted on 03/16/2025 for acute on chronic hypercapnia respiratory failure secondary requiring mechanical ventilation. Neurology Problem: Acute Encephalopathy, secondary to acute hypercapnia respiratory failure DDx: Likely in the setting of COPD exacerbation with increased CO2 retention as noted on ABG, patient currently on fentanyl and Precedex Diagnostic Test: SAT Treatment Plan: Will do daily SAT's and wean off of fentanyl and Precedex Cardiovascular Problem: History of paroxysmal A-fib, history of hypertension, history of CABG Diagnostic Test: Will order repeat EKG but appears to be in sinus rhythm. Currently normotensive. Will resume aspirin 81 mg p.o. daily history of CHF, HFpEF 55% to 60% DDx: Past medical history of CHF with HFpEF 55-60% Dx: Pulmonary vascular congestion as noted on chest x-ray and lower pedal edema Treatment plan: Gave 1 dose of Lasix 40 mg IV x 1 today Treatment Review: Will reevaluate pitting edema tomorrow history of hypertension DDx: past medical history of hypertension, home medication eplerenone and lasix. Rx: holding home medication as pressure has been within normal limits. Rxx: re-evaluate blood pressure Hyperlipidemia restart home medication after patient passes nurse swallow screen. Rx: nurse swallow Rxx: Atorvastatin after patient was extubated Respiratory Problem: Acute on chronic hypercapnia respiratory failure secondary to COPD DDx:history of COPD likely secondary to medicaiton non compliance. Diagnostic Test: Patient's initial ABG showed a pH of 7.23 that improved slowly to 7.32 CO2 was initially 129 and has slowly improved to 100. Patient was initially alert and speaking however throughout his ED stay he became obtunded with a GCS of 7 and needed intubation for airway protection. Treatment Plan: DuoNebs every 4 hours. Methylprednisolone 125 mg IV push x 1 followed by 40 mg 3 times daily for COPD exacerbation. Treatment Review: ABG, Community-acquired pneumonia Chest x-ray shows early left base pneumonia Given patient's previous cultures growing Pseudomonas aeruginosa and current presentation of COPD exacerbation Started Zosyn Will repeat sputum cultures GI and F/E/N Problem: None, famotidine 20 mg p.o. twice daily Renal Problem: Respiratory Acidosis with Metabolic Alkolosis compensation in the setting of COPD exacerbation. Diagnostic Test: ABG pH 7.30, pCO2 103 (H), pO2 367, HCO3 50(H), serum bicarbonate >40, Respiratory Acidosis HCO3 calculated 30.3 < serum bicarbonate greater 40 Treatment Plan: Continue to monitor Treatment Review: monitor spontaneous breathing trial Hyperkalemia DDx: likely in the setting of COPD exacerbation, treat undelrying problem. Diagnostic Tests: 5.4 (H) Rxx: treat undelrying condition Treatment Review: follow CMP Problem Hypochloremia DDx: likely in the setting of Metabolic alkalosis compensation. Diagnostic: 92 (L) Rxx: treat undelrying condition Treatment Review: Follow CMP Heme #Stable DVT prophylaxis with heparin 5000 subcu every 8 hours Endo #Stable ID Left base pneumonia As seen on x-ray on admission Given previous cultures growing Pseudomonas aeruginosa started patient on Zosyn Follow-up with repeat sputum cultures and adjust antibiotics as needed DVT prophylaxis: Heparin subcu GI prophylaxis: Famotidine 20 twice daily Diet: N.p.o. Yoder: In place and adequately draining Lines: Peripheral IVs Drips: Fentanyl, Precedex Vent: Pressure Support VT 450, spont 5 PEEP 5 CODE STATUS: Full code, Reason for hospitalization severe COPD exacerbation rule mechanical intubation and ventilation. - The patient's plan was discussed with attending Dr. Maegan Abarca MD PGY-3
[2025-03-25] MEDS: cefTRIAXone/D5w 1gm IV premix 1 GM/50 ML BAG IV (17:52)
[2025-03-25] MEDS: AZITHROMYCIN INJ 500 MG in SODIUM CHLORIDE 0.9% 250 ML 250 ML 250 MG IV (18:04)
[2025-03-25] MEDS: ALBUTEROL/IPRATROPIUM (Duoneb) RT SOL 3 ML NEBU INH (18:25)
[2025-03-25] MEDS: PIPER/TAZO 3.375 GM PREMIX 3.375 GM/50 ML BAG IV ×2 (18:31→21:47)
[2025-03-25] MEDS: DEXMEDETOMIDINE 400 MCG IVPB 400 MCG/100 ML BAG 5.557 MCG IV (19:13)
[2025-03-25 19:38] LABS: Albumin, Serum 3.6 gm/dL (3.4-4.8); Anion Gap 12 (7-16); BUN/Creatinine Ratio 26 Ratio (12-20); Blood Urea Nitrogen 18 mg/dL (9-23); Calcium 8.7 mg/dL (8.3-10.6); Carbon Dioxide > 40.0 mMol/L (20.0-31.0); Chloride 91 mMol/L (98-107); Creatinine (Component) 0.7 mg/dL (0.6-1.3); Estimated Creatinine Clearance 137.2 mL/min (>60); Glucose 159 mg/dL (74-106); Osmolality,Calculated 289 (275-295); Phosphorous 1.9 mg/dL (2.4-5.1); Potassium 5.9 mMol/L (3.4-5.1); Sodium 143 mMol/L (136-145); eGFR > 60 See Note
--- NOTE | 2025-03-25 20:50 | PC.NURSE ---
patient arrived to ICU intubated and sedated.unable to answer any question or give home medications. No family at bedside.
[2025-03-25] MEDS: FAMOTIDINE 20 MG TABLET PO (21:47)
[2025-03-25] MEDS: HEPARIN SOD INJ 5000 UNIT/ML VIAL SC (21:47)
[2025-03-26] VITALS (109 sets, daily range): BP systolic 111–206; BP diastolic 50–125; PULSE 48–108; RESP 12–30; TEMP 35.8–37; O2SAT 78–99; BMI 33.5
[2025-03-26] LABS: Amphetamine/Methamp Scrn,U Negative (Negative); Barbiturate Screen,Urine Negative (Negative); Benzodiazepines Screen,Urine Positive (Negative); Benzoylecgonine Screen, Ur Negative (Negative); Fentanyl Screen,Urine Positive (Negative); Opiate Screen,Urine Negative (Negative); THC Screen,Urine Negative (Negative)
[2025-03-26] MEDS: ALBUTEROL/IPRATROPIUM (Duoneb) RT SOL 3 ML NEBU INH ×4 (01:31→18:26)
[2025-03-26 04:42] LABS: Base Excess 22 (-3-3); HCO3 51 mEq/L (20-26); Inspired Oxygen, FIO2 40 %; O2 Saturation 91 % (91-98); PCO2 81 mmHg (32.0-48.0); pH, Arterial 7.41 (7.35-7.45)
[2025-03-26 04:48] LABS: Allen Test Performed/OK; PO2 57 mmHg (83-108); Puncture Site Right Radial
[2025-03-26 06:04] LABS: Basophils % (Auto) 0 % (0-2.5); Eosinophils % (Auto) 0 % (0-10); Hemoglobin 12.4 g/dL (13.5-16.0); Immature Granulocytes % (Auto) 2 % (0-0); Immature Granulocytes Auto 0.16 Thou/mm3 (0.00-0.00); Lymphocytes # (Auto) 0.3 Thou/mm3 (1.0-4.8); Lymphocytes % (Auto) 5 % (10-50); Mean Corpuscular Hemoglobin 30.4 pg (25.0-35.0); Mean Corpuscular Volume 98 fL (80-100); Monocytes # (Auto) 0.2 Thou/mm3 (0.0-0.8); Monocytes % (Auto) 3 % (0-12); Neutrophils # (Auto) 6.1 Thou/mm3 (1.8-7.7); Neutrophils % (Auto) 90 % (37-80); Nucleated Red Blood Cell % 0 /100 WBC (0); Platelet Count 137 Thou/mm3 (140-440); RDW Standard Deviation 50.7 fL (35.1-43.9); Red Blood Count 4.08 Miln/mm3 (4.50-5.90); White Blood Count 6.8 Thou/mm3 (3.8-10.6)
[2025-03-26] MEDS: HEPARIN SOD INJ 5000 UNIT/ML VIAL SC ×3 (06:29→21:24)
[2025-03-26] MEDS: PIPER/TAZO 3.375 GM PREMIX 3.375 GM/50 ML BAG IV (06:29)
--- NOTE | 2025-03-26 06:57 | ESPR_ITS ---
<Statement entered by Dia Issa MD - 03/27/25 07:58> TOTAL CC TIME: 45 MIN I saw and evaluated the patient. I reviewed the resident?s note and agree with findings and plan as documented in the resident?s note. Upon my evaluation, this patient had a high probability of imminent or life- threatening deterioration due to acute on chronic hypercapnic respiratory failure which required my direct attention, intervention, and personal management. This time is exclusive of time spent on procedures, which are documented separately if performed. passed SBT and extubated but requiring precedex for agitation and NIPPV for cont'd hypercapnic resp failure DO NOT GIVE DIAMOX! monitor in ICU post extubation - cont medication management as is taper steroids over 7d Documentation for date of: 03/26/25 Subjective Subjective Interval history: Mr. Lowe is a 64-year-old male with past medical history of severe COPD with multiple hospitalizations and multiple intubations on 4 l of home O2, HFpEF, paroxysmal A-fib, hypertension, hyperlipidemia who was brought into [facility] by EMS for dyspnea. Patient was at home and was alert and oriented x 3 but he became unresponsive in front of EMS so he was bagged and brought to the emergency department. In the emergency department he was found to have a GCS of 7 so patient was intubated. No other history was able to be obtained. 03/26/2025 Overnight Precedex infusion was discontinued due to patient being bradycardic and switched to midazolam infusion at 5 mg/h. Patient examined at bedside and arousable to touch and voice, RASS between 0 and -1. Blood pressure 140/65, pulse 56 and SpO2 9892% on mechanical ventilation. Currently mechanically ventilated on AC/CMV tidal volume 420, RR 20, PEEP 5 and FiO2 35. I's/O 649/1900 with a fluid balance of -1250 in the past 24 hours. On ABG, pH improved to 7.41 from 7.32, pCO2 improved to 81 from 100 and bicarb improved to 39.8 from >40. Sputum Gram stain grew 1+ WBC and GPC. Currently patient on DuoNebs every 6 hourly,Methylprednisone 40mg IV TID and Zosyn 3.375 g IV every 8 hours. Today will de-escalate Zosyn to ceftriaxone 1 g IV daily and attempt spontaneous breathing trial. Will extubate once successful on breathing trial. Repeat ABG ordered for 1300, will reevaluate after. BiPAP at bedside for postextubation. Exam Vital Signs Temp Pulse Resp BP Pulse Ox O2 Del Method O2 Flow Rate 98.2 F 50 L 22 H 144/84 H 99 Mechanical Ventilation 6 03/26/25 04:00 03/26/25 06:15 03/26/25 06:15 03/26/25 06:15 03/26/25 06:15 03/25/25 19:09 03/25/25 09:02 FiO2 35 03/26/25 06:10 Narrative Exam Constitutional Intubated. Body habitus: Obese, BMI 33 HEENT ET tube and OG tube noted. Patent nares. Trachea midline. On mechanical ventilation: TV 420, RR 20, PEEP 5, FiO2 35%, pressure control. Respiratory On inspection patient had erythematous lesions on anterior chest, mechanically ventilated breath sounds Cardiovascular S1 and S2 audible, RRR. No murmurs carotid bruit. JVD positive Abdominal Soft, obese and distended. Minimal bowel sounds auscultated. Genitourinary No bladder tenderness, no flank pain. Normal to palpation Musculoskeletal Extremities tone within normal limits. No LE edema. Bilateral lower extremity chronic venous insufficiency changes due to extravasation Neurological Responsive to pain and voice and RASS -2. Skin Hyperpigmented lesions on bilateral shins, toenails dry and cracked. Erythematous skin in the groin region and some erythematous patches on abdomen. Objective Labs 03/26/25 04:27 03/26/25 04:27 Labs: Laboratory Results - last 24 hr 03/25/25 03/25/25 03/25/25 08:55 09:05 13:08 WBC 7.0 RBC 4.75 Hgb 14.3 Hct 47.2 MCV 99 MCH 30.1 MCHC 30.3 L RDW Std Deviation 52.7 H Plt Count 142 Neut % (Auto) 73 Lymph % (Auto) 13 [place] % (Auto) 8 Eos % (Auto) 2 Baso % (Auto) 1 Neut # (Auto) 5.1 Lymph # (Auto) 0.9 L [place] # (Auto) 0.5 Eos # (Auto) 0.2 Baso # (Auto) 0.1 Immature Gran # (Auto) 0.23 H Absolute Nucleated RBC 0.00 Immature Gran % 3 H Nucleated RBC % 0 PT 11.2 INR 1.0 APTT 27.8 Puncture Site Left Radial Right Radial ABG pH 7.23 L 7.30 L ABG pCO2 129 H* 104 H* D ABG pO2 58 L* 52 L* ABG HCO3 54 H 51 H ABG O2 Saturation 89 L 88 L ABG Base Excess 20 H 20 H Oxygen Liter Flow 4 FiO2 21 40 Sodium 143 Potassium 5.4 H Chloride 90 L Carbon Dioxide > 40.0 H Anion Gap 13 BUN 17 Creatinine 0.7 Estim Creat Clear Calc 137.2 eGFR > 60 BUN/Creatinine Ratio 24 H Glucose 143 H Calculated Osmolality 288 Calcium 9.5 Corrected Calcium 9.5 Phosphorus Magnesium 2.1 Total Bilirubin 0.4 AST 16 ALT 14 Alkaline Phosphatase 61 Troponin I < 0.020 B-Natriuretic Peptide 62 Total Protein 7.0 Albumin 4.6 Globulin 2.4 Albumin/Globulin Ratio 1.9 Lipase 33 Ur Collection Type Urine Color Urine Clarity Urine pH Ur Specific [place] Urine Protein Urine Glucose (UA) Urine Ketones Urine Blood Urine Nitrite Urine Bilirubin Urine Urobilinogen (Auto) Ur Leukocyte Esterase Urine RBC Urine WBC Ur Squamous Epith Cells Ur Transition Epith Cell Urine Bacteria Ur Culture Indicated? Urine Opiates Screen Urine Fentanyl Screen Ur Barbiturates Screen U Amphetamin/Meth Scrn U Benzodiazepines Scrn U Cocaine Metab Screen U Marijuana (THC) Screen 03/25/25 03/25/25 03/25/25 15:41 16:45 18:54 WBC RBC Hgb Hct MCV MCH MCHC RDW Std Deviation Plt Count Neut % (Auto) Lymph % (Auto) [place] % (Auto) Eos % (Auto) Baso % (Auto) Neut # (Auto) Lymph # (Auto) [place] # (Auto) Eos # (Auto) Baso # (Auto) Immature Gran # (Auto) Absolute Nucleated RBC Immature Gran % Nucleated RBC % PT INR APTT Puncture Site Left Radial ABG pH 7.32 L ABG pCO2 100 H* ABG pO2 65 L ABG HCO3 51 H ABG O2 Saturation 92 ABG Base Excess 19 H Oxygen Liter Flow FiO2 75 Sodium 143 Potassium 5.9 H D Chloride 91 L Carbon Dioxide > 40.0 H Anion Gap 12 BUN 18 Creatinine 0.7 Estim Creat Clear Calc 137.2 eGFR > 60 BUN/Creatinine Ratio 26 H Glucose 159 H Calculated Osmolality 289 Calcium 8.7 Corrected Calcium 9.0 Phosphorus 1.9 L Magnesium Total Bilirubin AST ALT Alkaline Phosphatase Troponin I B-Natriuretic Peptide Total Protein Albumin 3.6 D Globulin Albumin/Globulin Ratio Lipase Ur Collection Type Catheter Urine Color Yellow Urine Clarity Clear Urine pH 6.0 Ur Specific [place] 1.031 Urine Protein 1+ A Urine Glucose (UA) Negative Urine Ketones Negative Urine Blood Negative Urine Nitrite Negative Urine Bilirubin Negative Urine Urobilinogen (Auto) 2.0 Ur Leukocyte Esterase Negative Urine RBC 7 H Urine WBC 4 Ur Squamous Epith Cells 0 Ur Transition Epith Cell < 1 Urine Bacteria None Ur Culture Indicated? Not Indicated Urine Opiates Screen Urine Fentanyl Screen Ur Barbiturates Screen U Amphetamin/Meth Scrn U Benzodiazepines Scrn U Cocaine Metab Screen U Marijuana (THC) Screen 03/25/25 03/26/25 03/26/25 21:15 04:24 04:27 WBC 6.8 RBC 4.08 L Hgb 12.4 L Hct 40.0 L MCV 98 MCH 30.4 MCHC 31.0 RDW Std Deviation 50.7 H Plt Count 137 L Neut % (Auto) 90 H Lymph % (Auto) 5 L [place] % (Auto) 3 Eos % (Auto) 0 Baso % (Auto) 0 Neut # (Auto) 6.1 Lymph # (Auto) 0.3 L [place] # (Auto) 0.2 Eos # (Auto) 0.0 Baso # (Auto) 0.0 Immature Gran # (Auto) 0.16 H Absolute Nucleated RBC 0.00 Immature Gran % 2 H Nucleated RBC % 0 PT INR APTT Puncture Site Right Radial ABG pH 7.41 ABG pCO2 81 H* D ABG pO2 57 L* ABG HCO3 51 H ABG O2 Saturation 91 ABG Base Excess 22 H Oxygen Liter Flow FiO2 40 Sodium Potassium Chloride Carbon Dioxide Anion Gap BUN Creatinine Estim Creat Clear Calc eGFR BUN/Creatinine Ratio Glucose Calculated Osmolality Calcium Corrected Calcium Phosphorus Magnesium Total Bilirubin AST ALT Alkaline Phosphatase Troponin I B-Natriuretic Peptide Total Protein Albumin Globulin Albumin/Globulin Ratio Lipase Ur Collection Type Urine Color Urine Clarity Urine pH Ur Specific [place] Urine Protein Urine Glucose (UA) Urine Ketones Urine Blood Urine Nitrite Urine Bilirubin Urine Urobilinogen (Auto) Ur Leukocyte Esterase Urine RBC Urine WBC Ur Squamous Epith Cells Ur Transition Epith Cell Urine Bacteria Ur Culture Indicated? Urine Opiates Screen Negative Urine Fentanyl Screen Positive A Ur Barbiturates Screen Negative U Amphetamin/Meth Scrn Negative U Benzodiazepines Scrn Positive A U Cocaine Metab Screen Negative U Marijuana (THC) Screen Negative ABG Interpretation ABG results: 03/25/25 03/25/25 03/25/25 08:55 13:08 16:45 ABG pH 7.23 L 7.30 L 7.32 L ABG pCO2 129 H* 104 H* D 100 H* ABG pO2 58 L* 52 L* 65 L ABG HCO3 54 H 51 H 51 H ABG O2 Saturation 89 L 88 L 92 ABG Base Excess 20 H 20 H 19 H 03/26/25 04:24 ABG pH 7.41 ABG pCO2 81 H* D ABG pO2 57 L* ABG HCO3 51 H ABG O2 Saturation 91 ABG Base Excess 22 H Quality Measures Quality Measures none Assessment & Plan Assessment Current Active Medications: Generic Name Dose Route Start Last Admin Trade Name Freq PRN Reason Stop Dose Admin Albuterol/Ipratropium 3 ml 03/25/25 17:31 Albuterol/Ipratropium (Duoneb) Rt Marita 3 Ml Nebu INH 04/24/25 17:30 Q2HR PRN SHORTNESS OF BREATH OR WHEEZE Albuterol/Ipratropium 3 ml 03/25/25 19:00 03/26/25 06:10 Albuterol/Ipratropium (Duoneb) Rt Marita 3 Ml Nebu INH 04/24/25 18:59 3 ml Q6HRRT FREDIS Administration Famotidine 20 mg 03/25/25 21:00 03/25/25 21:47 Famotidine 20 Mg Tablet PO 04/24/25 20:59 20 mg BID FREDIS Administration Heparin Sodium (Porcine) 5,000 unit 03/25/25 22:00 03/26/25 06:29 Heparin Sod Inj 5000 Unit/Ml Vial SC 04/08/25 21:59 5,000 unit Q8HR FREDIS Administration Fentanyl Citrate 2,500 mcg in 250 mls @ 2.5 mls/hr 03/25/25 16:23 03/26/25 05:00 Sublimaze Inj 2,500 Mcg/250 Ml Bag IV 03/30/25 16:22 175 mcg/hr .Q24H PRN 17.5 mls/hr PER PROTOCOL Titration Protocol 25 MCG/HR Azithromycin 500 mg/ Sodium 250 mls @ 250 mls/hr 03/26/25 09:00 Chloride IV 04/02/25 08:59 QDAY FREDIS Dexmedetomidine/Sodium Chloride 400 mcg in 100 mls @ 5.557 mls/hr 03/25/25 17:47 03/26/25 00:30 Precedex Ivpb IV 04/24/25 17:46 0 mcg/kg/hr .Q18H PRN 0 mls/hr Per PROTOCOL Titration Protocol 0.2 MCG/KG/HR Midazolam HCl 100 mg in 100 mls @ 1 mls/hr 03/25/25 17:53 03/26/25 05:00 Versed Pf Inj In Ns Premix IV 03/30/25 17:52 2 mg/hr .Q24H PRN 2 mls/hr PER PROTOCOL Titration Protocol 1 MG/HR Piperacillin/Tazobactam/Dextrose 3.375 gm in 50 mls @ 12.5 mls/hr 03/25/25 22:00 03/26/25 06:29 Zosyn IV 04/01/25 21:59 12.5 mls/hr Q8HR FREDIS Administration Methylprednisolone Sodium Succinate 40 mg 03/25/25 22:00 03/26/25 06:29 Methylprednisolone Sod Succ 40 Mg Vial IVP 04/01/25 21:59 40 mg Q8HR FREDIS Administration Sodium Chloride 3 ml 03/25/25 08:51 03/25/25 09:01 Sodium Chloride Rt Marita 0.9% 3 Ml Nebu INH 04/24/25 08:50 3 ml PRN PRN Administration SOLN Plan Mr. Lowe is a 64-year-old male with past medical history of severe COPD with multiple hospitalizations and multiple intubations on 4 l of home O2, HFpEF, paroxysmal A-fib, hypertension, hyperlipidemia who was brought into [facility] by EMS for dyspnea. Upon assessment patient GCS was 7/15 and he was subsequently intubated due to inability to protect his airway and placed on mechanical ventilation. Patient was admitted to the ICU from treatment and management of acute on chronic respiratory failure with hypoxia and hypercarbia secondary to COPD exacerbation. NEURO Acute metabolic encephalopathy DDx: Acute on chronic respiratory failure with hypoxia and hypercarbia, respiratory acidosis Dx: CT brain pending Rx: To attempt spontaneous awakening trials today, discontinued midazolam infusion, increased rate of fentanyl infusion to 22.5 mcg/h. Resumed Precedex infusion RRX: Neurochecks q. hourly to decide on weaning off of sedation CVS Bradycardia DDx: Excessive sedation, hyperkalemia, coronary artery disease Dx: Discontinued Precedex infusion Rx: Continue telemetry monitoring and fentanyl infusion. Correct electrolytes as necessary RRX: If continues to be bradycardic will decrease sedation Chronic diastolic congestive heart failure with preserved EF [55 to 60%] DDX: Chest x-ray showed moderate vascular congestion with mild consolidation at left base Rx: Scheduled furosemide 40 Mg IV daily, strict I's/O's, 1500 cc/day fluid restriction, bedside ultrasound to assess for B-lines RRX: Will monitor output today and decide on adjusting diuresis Primary hypertension Patient's home medication furosemide 40 Mg p.o. twice daily. Rx: Scheduled furosemide 40 Mg IV daily Hyperlipidemia Will resume home medication atorvastatin after patient is extubated PULM Acute on chronic respiratory failure with hypoxia and hypercarbia?improving DDx: COPD exacerbation, community-acquired pneumonia Dx: On ABG, pH improved to 7.41 from 7.32, pCO2 improved to 81 from 100 and bicarb improved to 39.8 from >40. Sputum Gram stain grew 1+ WBC and GPC. Rx: DuoNebs every 6 hourly and methylprednisolone 40 Mg IV every 8 hourly. Discontinued Zosyn and started on ceftriaxone 1 g IV daily. Switched ventilator to pressure support RRX: Repeat ABG at 1300 to assess for correction of PCO2 and bicarb GI/Hep PUD prophylaxis Rx: Famotidine 20 Mg IV twice daily RENAL Compensated respiratory acidosis with metabolic alkalosis DDx: Chronic COPD, COPD exacerbation Dx: On ABG, pH improved to 7.41 from 7.32, pCO2 improved to 81 from 100 and bicarb improved to 39.8 from >40 Rx: Continue to treat underlying cause RRX: Repeat BMP at 1300 Hypochloremia DDx: secondary to metabolic alkalosis from chronic respiratory acidosis RRx: Repeat BMP at 1300 HEME/ONC Normocytic Anemia DDx: Venipuncture Dx: Hb 12.4, HCT 40%, MCV 98 Rx: Monitor CBCs Thrombocytopenia DDx: Heparin-induced, essential, nutritional deficiency Dx: Plt 137 from 142 Rx: Monitor CBC RRX: Will continue to observe for any signs of spontaneous bleeding including bleeding gums, hematuria and petechiae/purpura/ecchymosis ENDO No acute problems ID Likely community-acquired pneumonia DDx: Left base consolidation on chest x-ray. Sputum Gram stain 1+ WBC and GPC. PSI/port 144 points; risk class V 27-29.2% mortality Rx: Discontinued Zosyn, started on ceftriaxone 1 g IV daily. RRX: Will follow-up on sputum culture results MSK/DERM Bilateral lower extremity hyperpigmentation DDx: Chronic venous insufficiency, varicose veins Rx: For outpatient management ICU Health maintenance: Dispo: Admit to ICU for mechanical ventilation Diet: NPO DVT ppx: Heparin 5000 units SC every 8 HR GI ppx: Famotidine 20 Mg IV twice daily Ventilattion: BiPAP : IPAP 10, EPAP 5 Sedation: Yes, Precedex [RASS -2] IV lines: 2 pIV. 22G Right Arm Central line: No Arterial line: No Yoder: Yes (started 03/25/25 - Code status: FULL CODE Plan of care discussed with Physical Anthropologist Dr. Issa and PGY 3 Dr. Kalina Alberto MD PGY 1 Disclaimer: This note was dictated by speech recognition. Minor errors in school counselor may be present due to voice recognition software.
[2025-03-26 07:01] LABS: Alanine Aminotransferase 11 U/L (10-49); Albumin, Serum 3.8 gm/dL (3.4-4.8); Albumin/Globulin Ratio 1.8 (1.2-2.2); Alkaline Phosphatase 45 U/L (46-116); Anion Gap 11 (7-16); Aspartate Amino Transferase 14 U/L (0-34); BUN/Creatinine Ratio 23 Ratio (12-20); Bilirubin,Total 0.4 mg/dL (0.3-1.2); Blood Urea Nitrogen 18 mg/dL (9-23); Calcium 8.9 mg/dL (8.3-10.6); Calcium (Corrected) 9.1 mg/dL (8.5-10.1); Carbon Dioxide 39.8 mMol/L (20.0-31.0); Chloride 91 mMol/L (98-107); Creatinine (Component) 0.8 mg/dL (0.6-1.3); Estimated Creatinine Clearance 120.5 mL/min (>60); Globulin 2.1 gm/dL (2.3-3.5); Glucose 128 mg/dL (74-106); Osmolality,Calculated 287 (275-295); Potassium 5.1 mMol/L (3.4-5.1); Sodium 142 mMol/L (136-145); Total Protein 5.9 gm/dL (5.7-8.2); eGFR > 60 See Note
[2025-03-26] MEDS: fentaNYL 2,500 MCG/250 ML BAG 2,500 MCG/250 ML BAG 22.5 MCG IV (08:54)
[2025-03-26 09:37] LABS: Base Excess 20 (-3-3); HCO3 50 mEq/L (20-26); Inspired Oxygen, FIO2 35 %; O2 Saturation 89 % (91-98); PCO2 84 mmHg (32.0-48.0); pH, Arterial 7.38 (7.35-7.45)
[2025-03-26 09:39] LABS: Allen Test Performed/OK; PO2 58 mmHg (83-108); Puncture Site Left Radial
[2025-03-26] MEDS: AZITHROMYCIN INJ 500 MG in SODIUM CHLORIDE 0.9% 250 ML 250 ML 250 MG IV (09:43)
[2025-03-26] MEDS: PERMETHRIN CR 5% 60 GM TUBE TOP (09:43)
[2025-03-26] MEDS: FAMOTIDINE INJ 10 MG/ML VIAL 2 ML 20 MG IV ×2 (09:56→21:24)
[2025-03-26] MEDS: FUROSEMIDE INJ 10 MG/ML 4ML VIAL 40 MG IVP (10:38)
--- NOTE | 2025-03-26 14:00 | PC.RT ---
pt refused abg.
[2025-03-26 15:03] LABS: Anion Gap 13 (7-16); BUN/Creatinine Ratio 24 Ratio (12-20); Blood Urea Nitrogen 19 mg/dL (9-23); Calcium 8.9 mg/dL (8.3-10.6); Carbon Dioxide > 40.0 mMol/L (20.0-31.0); Chloride 89 mMol/L (98-107); Creatinine (Component) 0.8 mg/dL (0.6-1.3); Estimated Creatinine Clearance 120.5 mL/min (>60); Glucose 143 mg/dL (74-106); Osmolality,Calculated 287 (275-295); Potassium 4.3 mMol/L (3.4-5.1); Sodium 142 mMol/L (136-145); eGFR > 60 See Note
[2025-03-26 16:25] LABS: Base Excess 22 (-3-3); HCO3 51 mEq/L (20-26); Inspired Oxygen, FIO2 35 %; O2 Saturation 90 % (91-98); PCO2 72 mmHg (32.0-48.0); pH, Arterial 7.45 (7.35-7.45)
[2025-03-26 16:28] LABS: Allen Test Performed/OK; PO2 58 mmHg (83-108); Puncture Site Left Radial
[2025-03-26] MEDS: DEXMEDETOMIDINE 400 MCG IVPB 400 MCG/100 ML BAG 22.226 MCG IV (17:13)
[2025-03-26] MEDS: DEXMEDETOMIDINE 400 MCG IVPB 400 MCG/100 ML BAG 33.339 MCG IV (20:30)
[2025-03-26] MEDS: cefTRIAXone/D5w 1gm IV premix 1 GM/50 ML BAG IV (21:24)
[2025-03-26] MEDS: hydrALAZINE INJ 20 MG/ML VIAL 10 MG IVP (21:41)
[2025-03-27] VITALS (41 sets, daily range): BP systolic 119–206; BP diastolic 61–134; PULSE 49–86; RESP 12–43; TEMP 36.1–36.8; O2SAT 88–100; BMI 31.6; BMI 31.5
[2025-03-27] MEDS: DEXMEDETOMIDINE 400 MCG IVPB 400 MCG/100 ML BAG 27.783 MCG IV ×2 (00:12→03:55)
[2025-03-27] MEDS: ALBUTEROL/IPRATROPIUM (Duoneb) RT SOL 3 ML NEBU INH ×4 (00:33→19:02)
[2025-03-27 05:35] LABS: Basophils % (Auto) 0 % (0-2.5); Eosinophils % (Auto) 0 % (0-10); Hematocrit 41.1 % (41.0-53.0); Hemoglobin 13.7 g/dL (13.5-16.0); Immature Granulocytes % (Auto) 1 % (0-0); Immature Granulocytes Auto 0.09 Thou/mm3 (0.00-0.00); Lymphocytes # (Auto) 0.4 Thou/mm3 (1.0-4.8); Lymphocytes % (Auto) 5 % (10-50); Mean Corpuscular HGB Conc 33.3 g/dl (31.0-37.0); Mean Corpuscular Hemoglobin 30.5 pg (25.0-35.0); Mean Corpuscular Volume 92 fL (80-100); Monocytes # (Auto) 0.3 Thou/mm3 (0.0-0.8); Monocytes % (Auto) 4 % (0-12); Neutrophils % (Auto) 90 % (37-80); Nucleated Red Blood Cell % 0 /100 WBC (0); Platelet Count 123 Thou/mm3 (140-440); RDW Standard Deviation 47.8 fL (35.1-43.9); Red Blood Count 4.49 Miln/mm3 (4.50-5.90); White Blood Count 7.8 Thou/mm3 (3.8-10.6)
[2025-03-27] MEDS: HEPARIN SOD INJ 5000 UNIT/ML VIAL SC (05:52)
[2025-03-27 06:00] LABS: Alanine Aminotransferase 11 U/L (10-49); Albumin, Serum 4.2 gm/dL (3.4-4.8); Albumin/Globulin Ratio 1.9 (1.2-2.2); Alkaline Phosphatase 49 U/L (46-116); Anion Gap 10 (7-16); Aspartate Amino Transferase 12 U/L (0-34); BUN/Creatinine Ratio 23 Ratio (12-20); Bilirubin,Total 0.4 mg/dL (0.3-1.2); Blood Urea Nitrogen 18 mg/dL (9-23); Calcium 9.3 mg/dL (8.3-10.6); Calcium (Corrected) 9.3 mg/dL (8.5-10.1); Carbon Dioxide > 40.0 mMol/L (20.0-31.0); Chloride 92 mMol/L (98-107); Creatinine (Component) 0.8 mg/dL (0.6-1.3); Estimated Creatinine Clearance 120.5 mL/min (>60); Globulin 2.2 gm/dL (2.3-3.5); Glucose 156 mg/dL (74-106); Osmolality,Calculated 288 (275-295); Phosphorous 2.7 mg/dL (2.4-5.1); Potassium 4.3 mMol/L (3.4-5.1); Sodium 142 mMol/L (136-145); Total Protein 6.4 gm/dL (5.7-8.2); eGFR > 60 See Note
--- NOTE | 2025-03-27 06:58 | XR_ITS ---
Examination: AP chest single view TECHNIQUE: AP portable semiupright chest single view Date and time: March 27, 2025 0705 hours Comparison March 25, 2025 INDICATIONS: Hypoxia. FINDINGS: The patient has been extubated Significant pneumonia left base with possible pleural disease Moderate vascular congestion Prominent osteopenia IMPRESSION: Significant left base pneumonia Moderate vascular congestion
--- NOTE | 2025-03-27 07:05 | ECHO_ITS ---
Transthoracic Echo Report Ht (in): 72 Wt (lb): 232 Exam Location: Echo Lab Status: Inpatient Acoustical Carpenter: Vale Caban Indications: Procedure Performed: BP: 125 / 61 HR: Technical Quality: Technically Difficult Study due to Patient Uncooperative MEASUREMENTS (Male / Female) Normal Values 2D ECHO LV Diastolic Diameter PLAX 5.7 cm 4.2 - 5.9 / 3.9 - 5.3 cm LV Systolic Diameter PLAX 3.6 cm IVS Diastolic Thickness 0.9 cm 0.6 - 1.0 / 0.6 - 0.9 cm LVPW Diastolic Thickness 0.9 cm 0.6 - 1.0 / 0.6 - 0.9 cm LV Relative Wall Thickness 0.3 LVOT Diameter 2.1 cm LA Volume Index 42.4 cm?/m? 16 - 28 cm?/m? DOPPLER AV Peak Velocity 144.0 cm/s AV Peak Gradient 8.3 mmHg LVOT Peak Velocity 118.0 cm/s LVOT Peak Gradient 5.6 mmHg AV Area Cont Eq pk 2.8 cm? MV Area PHT 3.5 cm? Mitral E Point Velocity 132.0 cm/s Mitral A Point Velocity 111.0 cm/s Mitral E to A Ratio 1.2 LV E' Lateral Velocity 8.8 cm/s Mitral E to LV E' Lateral Ratio 15.0 LV E' Septal Velocity 7.6 cm/s Mitral E to LV E' Septal Ratio 17.3 PV Peak Velocity 91.8 cm/s PV Peak Gradient 3.4 mmHg FINDINGS Left Ventricle Normal left ventricular size, wall thickness, systolic function with no obvious regional wall motion abnormalities.there is grade II diastolic dysfunction of the left ventricle (pseudonormal filling pattern). The ejection fraction is visually estimated at 55 %. Right Ventricle The right ventricle is normal in size and systolic function. Left Atrium The left atrial cavity size is mildly increased. Right Atrium The right atrium is normal by two-dimensional imaging, color flow and Doppler imaging with no structural abnormalities, no thrombus formation present. Atrial Septum The interatrial septum appears normal with no evidence of a shunt. Aorta The aorta is normal by two-dimensional, color flow and Doppler interrogation. Mitral Valve The mitral valve is normal by two-dimensional, color flow and Doppler interrogation. There is no significant mitral valve regurgitation, stenosis or prolapse. Aortic Valve The aortic valve is trileaflet and normal by two-dimensional, color flow and Doppler interrogation. There is no significant aortic valve regurgitation. Tricuspid Valve The tricuspid valve is normal by two-dimensional, color flow and Doppler interrogation. There is no significant tricuspid valve regurgitation. Pulmonic Valve The pulmonic valve is not well visualized. There is no significant pulmonic valve regurgitation. Vessels The pulmonary artery appears normal. The inferior vena cava pulmonary and hepatic veins appear normal. Pericardium The pericardium was not visualized due to patient would not allow testing to continue. CONCLUSIONS Indications: History of HFpEF Normal LV size and function with an estimated EF of 55 to 60%. Grade II Diastolic dysfunction. Normal RV size and function. Trace TR. RVSP not measured. Mild MR with mild MAC and mild LA dilatation. No pericardial effusion. Jovani Wilson (Electronically Signed) Final Date: 27 March 2025 18:17
[2025-03-27 07:24] LABS: Base Excess 19 (-3-3); HCO3 46 mEq/L (20-26); Inspired O2, VO2 Liters 2 L/min; O2 Saturation 89 % (91-98); PCO2 64 mmHg (32.0-48.0); pH, Arterial 7.47 (7.35-7.45)
[2025-03-27 07:28] LABS: Allen Test Performed/OK; PO2 56 mmHg (83-108); Puncture Site Left Radial
[2025-03-27] MEDS: DEXMEDETOMIDINE 400 MCG IVPB 400 MCG/100 ML BAG 33.339 MCG IV (07:47)
[2025-03-27] MEDS: FUROSEMIDE INJ 10 MG/ML 4ML VIAL 40 MG IVP (08:04)
[2025-03-27] MEDS: FAMOTIDINE INJ 10 MG/ML VIAL 2 ML 20 MG IV ×2 (08:04→21:11)
[2025-03-27] MEDS: AZITHROMYCIN INJ 500 MG in SODIUM CHLORIDE 0.9% 250 ML 250 ML 250 MG IV (09:45)
[2025-03-27] MEDS: ENOXAPARIN SOD INJ 40 MG/0.4 ML SYRINGE SC (09:50)
[2025-03-27] MEDS: predniSONE 20 MG TABLET 40 MG PO (10:23)
--- NOTE | 2025-03-27 10:53 | ESPR_ITS ---
Documentation for date of: 03/27/25 Subjective Subjective Interval history: Mr. Lowe is a 64-year-old male with past medical history of severe COPD with multiple hospitalizations and multiple intubations on 4 l of home O2, HFpEF, paroxysmal A-fib, hypertension, hyperlipidemia who was brought into [facility] by EMS for dyspnea. Patient was at home and was alert and oriented x 3 but he became unresponsive in front of EMS so he was bagged and brought to the emergency department. In the emergency department he was found to have a GCS of 7 so patient was intubated. No other history was able to be obtained. 03/26/2025 Overnight Precedex infusion was discontinued due to patient being bradycardic and switched to midazolam infusion at 5 mg/h. Patient examined at bedside and arousable to touch and voice, RASS between 0 and -1. Blood pressure 140/65, pulse 56 and SpO2 9892% on mechanical ventilation. Currently mechanically ventilated on AC/CMV tidal volume 420, RR 20, PEEP 5 and FiO2 35. I's/O 649/1900 with a fluid balance of -1250 in the past 24 hours. On ABG, pH improved to 7.41 from 7.32, pCO2 improved to 81 from 100 and bicarb improved to 39.8 from >40. Sputum Gram stain grew 1+ WBC and GPC. Currently patient on DuoNebs every 6 hourly,Methylprednisone 40mg IV TID and Zosyn 3.375 g IV every 8 hours. Today will de-escalate Zosyn to ceftriaxone 1 g IV daily and attempt spontaneous breathing trial. Will extubate once successful on breathing trial. Repeat ABG ordered for 1300, will reevaluate after. BiPAP at bedside for postextubation. 03/27/2025 Overnight patient was agitated and Precedex infusion increased to 1 from 0.8. Patient was also on BiPAP overnight and had 1 episode of hypotension with blood pressure in the 200s, hydralazine 10 Mg IV x 1 was given. This morning patient complained of a productive cough. I's/O's 1377/4115. BP 157/66, pulse 57 and saturating 95% on 4L via NC. Chloride increased to 92 from 89, bicarb >40, pH 7.47, [id number], PaO2 56, Hb improved to 13.7 from 12.5, platelet decreased to 123 from 137. Currently patient on DuoNebs every 6 hourly, methylprednisone 40 Mg IV 3 times daily and ceftriaxone 1 g IV daily. Steroids will be tapered to prednisone 40 Mg p.o. daily. Currently patient back on his home O2 requirements of 4 L via NC and currently clinically stable for downgrade to the floor. Will reach out to on-call team to downgrade patient. Exam Vital Signs Temp Pulse Resp BP Pulse Ox O2 Del Method O2 Flow Rate 97.6 F 58 L 15 158/61 H 93 L BiPAP 2 03/27/25 07:14 03/27/25 10:05 03/27/25 10:05 03/27/25 09:55 03/27/25 10:01 03/27/25 04:01 03/27/25 06:20 FiO2 35 03/27/25 06:15 Narrative Exam Constitutional Alert, oriented x 3 and comfortable. Body habitus obese HEENT Blurry vision secondary to myopia. Patent nares. Trachea midline Respiratory On inspection patient had erythematous lesions on anterior chest, decreased air entry in all lung hein [anterior and posterior], coarse crackles at left posterior lung base. Cardiovascular S1 and S2 audible, RRR. No murmurs carotid bruit. JVD positive Abdominal Soft, obese and distended. Minimal bowel sounds auscultated. Genitourinary No bladder tenderness, no flank pain. Normal to palpation Musculoskeletal Extremities tone within normal limits. No LE edema. Bilateral lower extremity chronic venous insufficiency changes due to extravasation Neurological CN II - XII grossly intact. Extremity motor and sensation grossly intact. Skin Hyperpigmented lesions on bilateral shins, toenails dry and cracked. Erythematous skin in the groin region and some erythematous patches on abdomen. Psychiatric Patient has good affect, is cooperative Objective Labs 03/28/25 05:11 03/28/25 05:11 Labs: Laboratory Results - last 24 hr 03/26/25 03/26/25 03/27/25 14:02 16:10 04:58 WBC 7.8 RBC 4.49 L Hgb 13.7 Hct 41.1 MCV 92 MCH 30.5 MCHC 33.3 RDW Std Deviation 47.8 H Plt Count 123 L Neut % (Auto) 90 H Lymph % (Auto) 5 L [place] % (Auto) 4 Eos % (Auto) 0 Baso % (Auto) 0 Neut # (Auto) 7.0 Lymph # (Auto) 0.4 L [place] # (Auto) 0.3 Eos # (Auto) 0.0 Baso # (Auto) 0.0 Immature Gran # (Auto) 0.09 H Absolute Nucleated RBC 0.00 Immature Gran % 1 H Nucleated RBC % 0 Puncture Site Left Radial ABG pH 7.45 ABG pCO2 72 H* D ABG pO2 58 L* ABG HCO3 51 H ABG O2 Saturation 90 L ABG Base Excess 22 H Oxygen Liter Flow FiO2 35 Sodium 142 142 Potassium 4.3 D 4.3 Chloride 89 L 92 L Carbon Dioxide > 40.0 H > 40.0 H Anion Gap 13 10 BUN 19 18 Creatinine 0.8 0.8 Estim Creat Clear Calc 120.5 120.5 eGFR > 60 > 60 BUN/Creatinine Ratio 24 H 23 H Glucose 143 H 156 H Calculated Osmolality 287 288 Calcium 8.9 9.3 Corrected Calcium 9.3 Phosphorus 2.7 Magnesium 2.0 Total Bilirubin 0.4 AST 12 ALT 11 Alkaline Phosphatase 49 Total Protein 6.4 Albumin 4.2 Globulin 2.2 L Albumin/Globulin Ratio 1.9 03/27/25 06:57 WBC RBC Hgb Hct MCV MCH MCHC RDW Std Deviation Plt Count Neut % (Auto) Lymph % (Auto) [place] % (Auto) Eos % (Auto) Baso % (Auto) Neut # (Auto) Lymph # (Auto) [place] # (Auto) Eos # (Auto) Baso # (Auto) Immature Gran # (Auto) Absolute Nucleated RBC Immature Gran % Nucleated RBC % Puncture Site Left Radial ABG pH 7.47 H ABG pCO2 64 H ABG pO2 56 L* ABG HCO3 46 H ABG O2 Saturation 89 L ABG Base Excess 19 H Oxygen Liter Flow 2 FiO2 Sodium Potassium Chloride Carbon Dioxide Anion Gap BUN Creatinine Estim Creat Clear Calc eGFR BUN/Creatinine Ratio Glucose Calculated Osmolality Calcium Corrected Calcium Phosphorus Magnesium Total Bilirubin AST ALT Alkaline Phosphatase Total Protein Albumin Globulin Albumin/Globulin Ratio ABG Interpretation ABG results: 03/25/25 03/25/25 03/25/25 08:55 13:08 16:45 ABG pH 7.23 L 7.30 L 7.32 L ABG pCO2 129 H* 104 H* D 100 H* ABG pO2 58 L* 52 L* 65 L ABG HCO3 54 H 51 H 51 H ABG O2 Saturation 89 L 88 L 92 ABG Base Excess 20 H 20 H 19 H 03/26/25 03/26/25 03/26/25 04:24 09:15 16:10 ABG pH 7.41 7.38 7.45 ABG pCO2 81 H* D 84 H* 72 H* D ABG pO2 57 L* 58 L* 58 L* ABG HCO3 51 H 50 H 51 H ABG O2 Saturation 91 89 L 90 L ABG Base Excess 22 H 20 H 22 H 03/27/25 06:57 ABG pH 7.47 H ABG pCO2 64 H ABG pO2 56 L* ABG HCO3 46 H ABG O2 Saturation 89 L ABG Base Excess 19 H Quality Measures Quality Measures none Assessment & Plan Assessment Current Active Medications: Generic Name Dose Route Start Last Admin Trade Name Freq PRN Reason Stop Dose Admin Albuterol/Ipratropium 3 ml 03/25/25 17:31 Albuterol/Ipratropium (Duoneb) Rt Marita 3 Ml Nebu INH 04/24/25 17:30 Q2HR PRN SHORTNESS OF BREATH OR WHEEZE Albuterol/Ipratropium 3 ml 03/25/25 19:00 03/27/25 06:12 Albuterol/Ipratropium (Duoneb) Rt Marita 3 Ml Nebu INH 04/24/25 18:59 3 ml Q6HRRT FREDIS Administration Enoxaparin Sodium 40 mg 03/27/25 09:00 03/27/25 09:50 Enoxaparin Sod Inj 40 Mg/0.4 Ml Syringe SC 04/10/25 08:59 40 mg QDAY FREDIS Administration Famotidine 20 mg 03/26/25 09:45 03/27/25 08:04 Famotidine Inj 10 Mg/Ml Vial 2 Ml IV 04/25/25 09:44 20 mg BID FREDIS Administration Furosemide 40 mg 03/26/25 10:15 03/27/25 08:04 Furosemide Inj 10 Mg/Ml 4ml Vial IVP 04/25/25 10:14 40 mg QDAY FREDIS Administration Hydralazine HCl 10 mg 03/27/25 07:01 Hydralazine Inj 20 Mg/Ml Vial IVP 04/26/25 07:00 Q6HR PRN SBP >160 Azithromycin 500 mg/ Sodium 250 mls @ 250 mls/hr 03/26/25 09:00 03/27/25 09:45 Chloride IV 03/28/25 08:59 250 mls/hr QDAY FREDIS Administration Ceftriaxone Sodium/Dextrose 1 gm in 50 mls @ 100 mls/hr 03/26/25 21:00 03/26/25 21:24 Rocephin/D5w 1gm Iv Premix IV 04/02/25 20:59 100 mls/hr HS FREDIS Administration Prednisone 40 mg 03/27/25 10:17 03/27/25 10:23 Prednisone 20 Mg Tablet PO 03/30/25 10:14 40 mg QDAY FREDIS Administration Sodium Chloride 3 ml 03/25/25 08:51 03/25/25 09:01 Sodium Chloride Rt Marita 0.9% 3 Ml Nebu INH 04/24/25 08:50 3 ml PRN PRN Administration SOLN Plan Mr. Lowe is a 64-year-old male with past medical history of severe COPD with multiple hospitalizations and multiple intubations on 4 l of home O2, HFpEF, paroxysmal A-fib, hypertension, hyperlipidemia who was brought into [facility] by EMS for dyspnea. Upon assessment patient GCS was 7/15 and he was subsequently intubated due to inability to protect his airway and placed on mechanical ventilation. Patient was admitted to the ICU from treatment and management of acute on chronic respiratory failure with hypoxia and hypercarbia secondary to COPD exacerbation. NEURO Acute metabolic encephalopathy - resolved DDx: Acute on chronic respiratory failure with hypoxia and hypercarbia, respiratory acidosis Dx: CT brain pending CVS Bradycardia DDx: Excessive sedation, hyperkalemia, coronary artery disease Dx: Discontinued Precedex infusion Rx: Continue telemetry monitoring. Correct electrolytes as necessary Chronic diastolic congestive heart failure with preserved EF [55 to 60%] DDX: Chest x-ray showed moderate vascular congestion with mild consolidation at left base Rx: Continue furosemide 40 Mg IV daily, strict I's/O's, 1500 cc/day fluid restriction, bedside ultrasound to assess for B-lines RRX: Will monitor output today and decide on adjusting diuresis Primary hypertension Patient's home medication furosemide 40 Mg p.o. twice daily. Rx: Scheduled furosemide 40 Mg IV daily Hyperlipidemia Will resume home medication atorvastatin PULM Acute on chronic respiratory failure with hypoxia and hypercarbia?improving DDx: COPD exacerbation, community-acquired pneumonia Dx: On ABG, pH worsened to 7.47 from 7.41, pCO2 improved to 64 from 81 and bicarb increased to >40 from 39.8. Sputum Gram stain grew 1+ WBC and GPC. Rx: DuoNebs every 6 hourly, ceftriaxone 1 g IV daily. Taper steroids to prednisone 40 Mg p.o. daily RRX: Patient clinically stable for transfer to the floor GI/Hep PUD prophylaxis Rx: Famotidine 20 Mg IV twice daily RENAL Compensated respiratory acidosis with metabolic alkalosis DDx: Chronic COPD, COPD exacerbation Dx: On ABG, pH worsened to 7.47 from 7.41, pCO2 improved to 64 from 81 and bicarb increased to >40 from 39.8. Rx: Continue to treat underlying cause Hypochloremia CL 89 ---> 92 DDx: secondary to metabolic alkalosis from chronic respiratory acidosis RRx: Repeat BMP at 1300 HEME/ONC Normocytic Anemia - resolved DDx: Venipuncture Dx: Hb 23.7, HCT 41.1%, MCV 92 Thrombocytopenia DDx: ITP, essential Dx: Plt 123 from 137 Rx: Monitor CBC RRX: Will continue to observe for any signs of spontaneous bleeding including bleeding gums, hematuria and petechiae/purpura/ecchymosis ENDO No acute problems ID Likely community-acquired pneumonia DDx: Left base consolidation on chest x-ray. Sputum Gram stain 1+ WBC and GPC. PSI/port 144 points; risk class V 27-29.2% mortality Rx: Continue ceftriaxone 1 g IV daily. RRX: Will follow-up on sputum culture results MSK/DERM Bilateral lower extremity hyperpigmentation DDx: Chronic venous insufficiency, varicose veins Rx: For outpatient management ICU Health maintenance: Dispo: Downgrade to the floor today. Taper steroids Diet: Cardiac DVT ppx: Enoxaparin GI ppx: Famotidine 20 Mg IV twice daily Ventilattion: No Sedation: No IV lines: 2 pIV. 20G Right and left forearm Central line: No Arterial line: No Yoder: No Code status: FULL CODE Plan of care discussed with Tray Server Dr. Pepe and PGY 3 Dr. Kalina Alberto MD PGY 1 Disclaimer: This note was dictated by speech recognition. Minor errors in after school program teacher may be present due to voice recognition software. Attending Provider Attestation/Addendum pt seen and examined with resident. in brief this is a 64yo M admitted with COPDE and intubation, he was extubated yesterday and doing well. He is on nebs and steroids. on exam his LCTAB, HRRR, no increase in WOB, abd s/nt/bs+. ABG today shows chronic resp acidosis with compensatory alkalosis. He is stable for downgrade to tele. case d/w ICU team labs, imaging, records reviewed ~ 35min required for eval, exam, review, intervention, discussion and formulation of POC
--- NOTE | 2025-03-27 13:50 | PC.SS ---
FUNERAL PLANNING COUNSELOR conducted bedside contact with the patient conduct initial assessment and to discuss discharge planning.? Patient confirmed demographic information.? Patient reports residing alone at home.? Patient utilizes a wheelchair for mobility.? Patient utilizes home oxygen.? Patient reports possessing ability to complete ADL?s independently.? Patient confirmed surrogate medical decision maker is son, Daniel Lowe; .? Patient?s PCP is Dr. Jones ORION.? Pharmacy of choice is [facility].? Discharge plan is for the patient to return home.? Patient possesses coverage for ambulance transport.? banking services advisor will assist with arranging transport on behalf of the patient.? No further discharge needs identified by the patient.? No further intervention required at this time, social media content specialist will be available to address any further concerns.? Next of Kin: Daniel Lowe D/C Plan: Home
--- NOTE | 2025-03-27 14:35 | ESPR_ITS ---
<Statement entered by Liza Hidalgo MD - 03/31/25 14:49> I reviewed above note and agree with findings and plans. I have also personally examined the patient with medicine team and went over assessment and plan with medical team including culinary intern and resident physician. Documentation for date of: 03/27/25 Subjective Subjective Interval history: ICU downgrade on 03/27. Initially presented on 03/25 for acute on chronic hypoxic and hypercapnic respiratory failure in setting of severe COPD on home O2 requiring multiple intubations. Initial blood gas showed pH of 7.23, PCO2 129, PO2 58 and due to GCS of 7 patient was intubated and admitted to ICU. Throughout hospital course, ABGs improved with pH of 7.47, pCO2 64, PO256 but saturating 92% on 2 L NC and on BiPAP at night. Otherwise, patient also started on steroids, currently undergoing steroid taper. Imaging revealed left base consolidation and sputum Gram stain showing 1+ WBC and GPC, currently on ceftriaxone and azithromycin. Seen and examined at bedside and patient breathing comfortably on 2 L nasal cannula, watching TV. He does not have any complaints at this time, including shortness of breath, chest pain, nausea, vomiting. Will continue management of floors with steroid taper, BiPAP at night, and follow-up on culture results and continue IV antibiotics. Exam Vital Signs Temp Pulse Resp BP Pulse Ox O2 Del Method O2 Flow Rate 98.0 F 57 L 18 157/66 H 99 BiPAP 2 03/27/25 12:00 03/27/25 12:08 03/27/25 12:08 03/27/25 12:00 03/27/25 12:08 03/27/25 04:01 03/27/25 12:08 FiO2 35 03/27/25 06:15 Narrative Exam General: AOx3, no acute distress, able to speak full sentences HEENT: NC/AT, mucous membranes moist, bilateral sclera anicteric Cardiovascular: regular rate and rhythm, S1/S2 present, no murmurs appreciated Pulmonary: breathing comfortably on 2 L NC, decreased lung sounds but no rales/rhonchi/wheezes Abdominal: soft, non-tender, non-distended, no rebound/guarding, normal bowel sounds present Musculoskeletal: normal ROM, no peripheral edema Skin: chronic venous stasis changes, warm and dry, intact Neuro: CN II-XII intact, no focal deficits Objective Labs 03/27/25 04:58 03/27/25 04:58 Labs: Laboratory Results - last 24 hr 03/26/25 03/26/25 03/27/25 14:02 16:10 04:58 WBC 7.8 RBC 4.49 L Hgb 13.7 Hct 41.1 MCV 92 MCH 30.5 MCHC 33.3 RDW Std Deviation 47.8 H Plt Count 123 L Neut % (Auto) 90 H Lymph % (Auto) 5 L [place] % (Auto) 4 Eos % (Auto) 0 Baso % (Auto) 0 Neut # (Auto) 7.0 Lymph # (Auto) 0.4 L [place] # (Auto) 0.3 Eos # (Auto) 0.0 Baso # (Auto) 0.0 Immature Gran # (Auto) 0.09 H Absolute Nucleated RBC 0.00 Immature Gran % 1 H Nucleated RBC % 0 Puncture Site Left Radial ABG pH 7.45 ABG pCO2 72 H* D ABG pO2 58 L* ABG HCO3 51 H ABG O2 Saturation 90 L ABG Base Excess 22 H Oxygen Liter Flow FiO2 35 Sodium 142 142 Potassium 4.3 D 4.3 Chloride 89 L 92 L Carbon Dioxide > 40.0 H > 40.0 H Anion Gap 13 10 BUN 19 18 Creatinine 0.8 0.8 Estim Creat Clear Calc 120.5 120.5 eGFR > 60 > 60 BUN/Creatinine Ratio 24 H 23 H Glucose 143 H 156 H Calculated Osmolality 287 288 Calcium 8.9 9.3 Corrected Calcium 9.3 Phosphorus 2.7 Magnesium 2.0 Total Bilirubin 0.4 AST 12 ALT 11 Alkaline Phosphatase 49 Total Protein 6.4 Albumin 4.2 Globulin 2.2 L Albumin/Globulin Ratio 1.9 03/27/25 06:57 WBC RBC Hgb Hct MCV MCH MCHC RDW Std Deviation Plt Count Neut % (Auto) Lymph % (Auto) [place] % (Auto) Eos % (Auto) Baso % (Auto) Neut # (Auto) Lymph # (Auto) [place] # (Auto) Eos # (Auto) Baso # (Auto) Immature Gran # (Auto) Absolute Nucleated RBC Immature Gran % Nucleated RBC % Puncture Site Left Radial ABG pH 7.47 H ABG pCO2 64 H ABG pO2 56 L* ABG HCO3 46 H ABG O2 Saturation 89 L ABG Base Excess 19 H Oxygen Liter Flow 2 FiO2 Sodium Potassium Chloride Carbon Dioxide Anion Gap BUN Creatinine Estim Creat Clear Calc eGFR BUN/Creatinine Ratio Glucose Calculated Osmolality Calcium Corrected Calcium Phosphorus Magnesium Total Bilirubin AST ALT Alkaline Phosphatase Total Protein Albumin Globulin Albumin/Globulin Ratio ABG Interpretation ABG results: 03/25/25 03/25/25 03/25/25 08:55 13:08 16:45 ABG pH 7.23 L 7.30 L 7.32 L ABG pCO2 129 H* 104 H* D 100 H* ABG pO2 58 L* 52 L* 65 L ABG HCO3 54 H 51 H 51 H ABG O2 Saturation 89 L 88 L 92 ABG Base Excess 20 H 20 H 19 H 03/26/25 03/26/25 03/26/25 04:24 09:15 16:10 ABG pH 7.41 7.38 7.45 ABG pCO2 81 H* D 84 H* 72 H* D ABG pO2 57 L* 58 L* 58 L* ABG HCO3 51 H 50 H 51 H ABG O2 Saturation 91 89 L 90 L ABG Base Excess 22 H 20 H 22 H 03/27/25 06:57 ABG pH 7.47 H ABG pCO2 64 H ABG pO2 56 L* ABG HCO3 46 H ABG O2 Saturation 89 L ABG Base Excess 19 H Quality Measures Quality Measures none Assessment & Plan Assessment Current Active Medications: Generic Name Dose Route Start Last Admin Trade Name Freq PRN Reason Stop Dose Admin Albuterol/Ipratropium 3 ml 03/25/25 17:31 Albuterol/Ipratropium (Duoneb) Rt Marita 3 Ml Nebu INH 04/24/25 17:30 Q2HR PRN SHORTNESS OF BREATH OR WHEEZE Albuterol/Ipratropium 3 ml 03/25/25 19:00 03/27/25 12:08 Albuterol/Ipratropium (Duoneb) Rt Marita 3 Ml Nebu INH 04/24/25 18:59 3 ml Q6HRRT FREDIS Administration Atorvastatin Calcium 20 mg 03/27/25 21:00 Atorvastatin Calcium 20 Mg Tablet PO 04/26/25 20:59 HS FREDIS Enoxaparin Sodium 40 mg 03/27/25 09:00 03/27/25 09:50 Enoxaparin Sod Inj 40 Mg/0.4 Ml Syringe SC 04/10/25 08:59 40 mg QDAY FREDIS Administration Famotidine 20 mg 03/26/25 09:45 03/27/25 08:04 Famotidine Inj 10 Mg/Ml Vial 2 Ml IV 04/25/25 09:44 20 mg BID FREDIS Administration Furosemide 40 mg 03/26/25 10:15 03/27/25 08:04 Furosemide Inj 10 Mg/Ml 4ml Vial IVP 04/25/25 10:14 40 mg QDAY FREDIS Administration Hydralazine HCl 10 mg 03/27/25 07:01 Hydralazine Inj 20 Mg/Ml Vial IVP 04/26/25 07:00 Q6HR PRN SBP >160 Azithromycin 500 mg/ Sodium 250 mls @ 250 mls/hr 03/26/25 09:00 03/27/25 09:45 Chloride IV 03/28/25 08:59 250 mls/hr QDAY FREDIS Administration Ceftriaxone Sodium/Dextrose 1 gm in 50 mls @ 100 mls/hr 03/26/25 21:00 03/26/25 21:24 Rocephin/D5w 1gm Iv Premix IV 04/02/25 20:59 100 mls/hr HS FREDIS Administration Prednisone 40 mg 03/27/25 10:17 03/27/25 10:23 Prednisone 20 Mg Tablet PO 03/30/25 10:14 40 mg QDAY FREDIS Administration Sodium Chloride 3 ml 03/25/25 08:51 03/25/25 09:01 Sodium Chloride Rt Marita 0.9% 3 Ml Nebu INH 04/24/25 08:50 3 ml PRN PRN Administration SOLN Eric Padilla Lowe is a 64-year-old male with a past medical history of severe COPD on 4 L home O2 requiring multiple hospitalizations and intubations, HFpEF (EF 55 to 60% on 09/2024), hypertension, hyperlipidemia who is admitted for acute on chronic hypoxic and hypercapnic respiratory failure status post intubation and being downgraded to floors on 03/27. #Acute on chronic hypoxic and hypercapnic respiratory failure, status post extubation #Acute hypercapnic/metabolic encephalopathy, resolved #COPD exacerbation, improving #Primary respiratory acidosis compensated by metabolic alkalosis Presented with hypercapnic encephalopathy with initial ABG that showed pH 7.23, pCO2 129, pO2 of 58 with chronic retention evidenced by HCO3 > 40 and GCS of 7, thus warranting intubation and admission to the ICU. Since, patient has been extubated and most recent ABG showed pH 7.47, pCO2 64, and pO2 of 56 and saturating well on NC with BiPAP at night. ? DuoNebs every 6 hours ? Steroid taper: Prednisone 40 mg p.o. daily from 03/27-03/30 ? Azithromycin (03/25-) ? BiPAP at night #Community-acquired pneumonia Initial CXR showed early pneumonia in left base with vascular congestion. ? Ceftriaxone and azithromycin (03/25-) ? Sputum culture 03/25: mixed oral april #HFpEF (EF 55 to 60% on 09/2024) Echo 09/2024: Normal LV size and function. Grade I diastolic dysfunction. Estimated EF 55-60%. Mild RV dilation, normal RV function. Mild LA dilatation. Trace MR, TR. ? Lasix 40 mg IV daily ? Strict I's and O's ? Fluid restriction (1.5 L/day) ? Follow-up echo #Hypertension ? Lisinopril 5 mg p.o. daily starting today #Hyperlipidemia ? Atorvastatin 20 mg p.o. daily Hospital management: Disposition: steroid taper, pending echo read Diet: cardiac Lines: PIV DVT prophylaxis: enoxaparin 40 mg SC daily CODE STATUS: full code ----- Plan discussed with attending physician Dr. Rocky Avendaño MD PGY-1 Internal Medicine
--- NOTE | 2025-03-27 14:36 | PD.RESEVENT ---
Documentation for date of: 03/27/25 Event Note Event Note: Evaluated patient in afternoon, no complaints at this time. Will be discharged tomorrow if vital signs remain stable and he is back to his baseline.
[2025-03-27] MEDS: Lisinopril 2.5 MG TABLET 5 MG PO (16:55)
[2025-03-27] MEDS: ATORVASTATIN CALCIUM 20 MG TABLET PO (21:11)
[2025-03-27] MEDS: cefTRIAXone/D5w 1gm IV premix 1 GM/50 ML BAG IV (21:11)
[2025-03-28] VITALS (10 sets, daily range): BP systolic 134–150; BP diastolic 51–74; PULSE 64–98; RESP 18–24; TEMP 36.7–37.1; O2SAT 90–97
[2025-03-28] MEDS: ALBUTEROL/IPRATROPIUM (Duoneb) RT SOL 3 ML NEBU INH ×3 (01:05→13:07)
[2025-03-28 05:45] LABS: Basophils % (Auto) 0 % (0-2.5); Eosinophils % (Auto) 0 % (0-10); Hematocrit 37.6 % (41.0-53.0); Hemoglobin 12.6 g/dL (13.5-16.0); Immature Granulocytes % (Auto) 1 % (0-0); Immature Granulocytes Auto 0.09 Thou/mm3 (0.00-0.00); Lymphocytes # (Auto) 0.8 Thou/mm3 (1.0-4.8); Lymphocytes % (Auto) 9 % (10-50); Mean Corpuscular HGB Conc 33.5 g/dl (31.0-37.0); Mean Corpuscular Hemoglobin 30.7 pg (25.0-35.0); Mean Corpuscular Volume 92 fL (80-100); Monocytes # (Auto) 0.7 Thou/mm3 (0.0-0.8); Monocytes % (Auto) 8 % (0-12); Neutrophils # (Auto) 7.3 Thou/mm3 (1.8-7.7); Neutrophils % (Auto) 82 % (37-80); Nucleated Red Blood Cell % 0 /100 WBC (0); Platelet Count 138 Thou/mm3 (140-440); RDW Standard Deviation 48.8 fL (35.1-43.9)
[2025-03-28 06:13] LABS: Alanine Aminotransferase 10 U/L (10-49); Albumin, Serum 3.8 gm/dL (3.4-4.8); Alkaline Phosphatase 40 U/L (46-116); Anion Gap 9 (7-16); Aspartate Amino Transferase 11 U/L (0-34); BUN/Creatinine Ratio 26 Ratio (12-20); Bilirubin,Total 0.4 mg/dL (0.3-1.2); Blood Urea Nitrogen 21 mg/dL (9-23); Calcium 8.8 mg/dL (8.3-10.6); Carbon Dioxide > 40.0 mMol/L (20.0-31.0); Chloride 94 mMol/L (98-107); Creatinine (Component) 0.8 mg/dL (0.6-1.3); Estimated Creatinine Clearance 63.2 mL/min (>60); Globulin 1.9 gm/dL (2.3-3.5); Glucose 110 mg/dL (74-106); Osmolality,Calculated 288 (275-295); Phosphorous 3.1 mg/dL (2.4-5.1); Potassium 3.2 mMol/L (3.4-5.1); Sodium 143 mMol/L (136-145); Total Protein 5.7 gm/dL (5.7-8.2); eGFR > 60 See Note
[2025-03-28] MEDS: POTASSIUM CHLORIDE 20 mEq TABCR 40 MEQ PO (08:21)
[2025-03-28] MEDS: predniSONE 20 MG TABLET 40 MG PO (08:22)
[2025-03-28] MEDS: ENOXAPARIN SOD INJ 40 MG/0.4 ML SYRINGE SC (08:22)
[2025-03-28] MEDS: FAMOTIDINE INJ 10 MG/ML VIAL 2 ML 20 MG IV (08:22)
[2025-03-28] MEDS: FUROSEMIDE INJ 10 MG/ML 4ML VIAL 40 MG IVP (08:25)
--- NOTE | 2025-03-28 11:20 | ESDS_ITS ---
<Statement entered by Liza Hidalgo MD - 04/02/25 09:32> I reviewed above note and agree with findings and plans. I have also personally examined the patient with medicine team and went over assessment and plan with medical team including internet salesperson and resident physician. Planned Discharge Date 03/28/25 DS: Providers Provider Date of admission: 03/25/25 16:14 Primary care physician: Nickolas Jones MD Admitting Provider: Dia Issa MD Attending Provider on Admission: Dia Issa MD Attending Provider on DC: Lai Avendaño MD Discharging Provider: Lai Avendaño MD DS: Diagnosis Problem List Completed Was Problem List Reviewed/Reconciled?: Yes Hospital Course Hospital Course Hospital course: Padilla Lowe is a 64-year-old male with a past medical history of severe COPD on 4 L home O2 requiring multiple hospitalizations and intubations, HFpEF (EF 55 to 60% on 09/2024), hypertension, hyperlipidemia who is admitted for acute on chronic hypoxic and hypercapnic respiratory failure status post intubation and being downgraded to floors on 03/27. This is not his first admission requiring intubation and ICU level of care, all of which are related to acute on chronic hypoxic and hypercapnic respiratory failure. Initially presented on 03/25 for the same with initial blood gas showing pH of 7.23, PCO2 129, PO2 58 and due to GCS of 7 patient was intubated and admitted to ICU. Throughout hospital course, ABGs improved with pH of 7.47, pCO2 64, PO2 56 but saturating 92% on 2 L NC with BiPAP at night. Otherwise, patient also started on steroids, and already started to taper. Imaging revealed left base consolidation and sputum Gram stain showing 1+ WBC and GPC that ultimately grew mixed oral april and was on ceftriaxone and azithromycin. After being downgraded to floors patient was able to breathe comfortably on 2 L nasal cannula saturating between 88 and 92%. Did not have any complaints, including shortness of breath, chest pain, nausea, vomiting. Given that patient was essentially back to his baseline oxygen requirements, vital signs were stable for him and no fevers overnight, CBC unremarkable, CHEM panel largely unremarkable, patient was deemed stable for discharge. He was encouraged to stop smoking and to be vigilant with his CPAP machine at night to decrease frequency of intubations and hospitalizations overall for his benefit. Diagnoses during admission: #Acute on chronic hypoxic and hypercapnic respiratory failure, status post extubation #Acute hypercapnic/metabolic encephalopathy, resolved #COPD exacerbation, improving #Primary respiratory acidosis compensated by metabolic alkalosis #Community-acquired pneumonia #HFpEF (EF 55 to 60% on 09/2024) #Hypertension #Hyperlipidemia Discharge instructions: ? Take augmentin and doxycycline for 5 more days to finish your antibiotic course ? Continue taking prednisone and follow taper instructions ? Continue taking all other home medications as prescribed ? Follow-up with PCP within 1-2 weeks of discharge ? If you do not have a PCP, you can follow-up at the [facility] (you can call [phone] to make an appointment) ? If you wish to follow-up with Dr. Avendaño, schedule appointment on Thursday ? Return to ED if symptoms worsen or recur ----- Plan discussed with attending physician Dr. Rocky Avendaño MD PGY-1 Internal Medicine Time Spent with Patient Time attestation: Total time spent providing and/or coordinating discharge services: Time spent: Greater than 30 minutes Exam Vital Signs Temp Pulse Resp BP Pulse Ox O2 Del Method O2 Flow Rate 97.8 F 89 24 H 134/51 H 90 L BiPAP 4 03/27/25 20:02 03/28/25 08:25 03/28/25 06:14 03/28/25 08:25 03/28/25 06:14 03/27/25 04:01 03/28/25 06:14 FiO2 35 03/27/25 06:15 Narrative Exam General: AOx3, no acute distress, able to speak full sentences HEENT: NC/AT, mucous membranes moist, bilateral sclera anicteric Cardiovascular: regular rate and rhythm, S1/S2 present, no murmurs appreciated Pulmonary: breathing comfortably on 2 L NC, decreased lung sounds but no rales/rhonchi/wheezes Abdominal: soft, non-tender, non-distended, no rebound/guarding, normal bowel sounds present Musculoskeletal: normal ROM, no peripheral edema Skin: chronic venous stasis changes, warm and dry, intact Neuro: CN II-XII intact, no focal deficits Discharge Plan Plan Patient Disposition: HOME (Self Care) Care Plan Goals: ? Take augmentin and doxycycline for 5 more days to finish your antibiotic course ? Continue taking prednisone and follow taper instructions ? Continue taking all other home medications as prescribed ? Follow-up with PCP within 1-2 weeks of discharge ? If you do not have a PCP, you can follow-up at the [facility] (you can call [phone] to make an appointment) ? If you wish to follow-up with Dr. Avendaño, schedule appointment on Thursday afternoons ? Return to ED if symptoms worsen or recur Prescriptions/Referrals Prescriptions/Med Rec: New prednisone 10 mg tablet See Taper PO QDAY Qty: 22 0RF Taper: Prednisone Taper 40 mg DAILY for 1 Day and 0 Hour 30 mg DAILY for 3 Days and 0 Hour 20 mg DAILY for 3 Days and 0 Hour 10 mg DAILY for 3 Days and 0 Hour amoxicillin-pot clavulanate 875-125 mg tablet 1 tab PO BID 5 Days Qty: 10 0RF doxycycline hyclate 100 mg capsule 100 mg PO BID 5 Days Qty: 10 0RF Continued nicotine 21 mg/24 hr Patch 24 Hour 21 mg top QDAY PRN (Reason: Nicotine Cravings) Qty: 7 0RF atorvastatin 20 mg Tablet 20 mg PO HS 7 Days Qty: 7 0RF furosemide 40 mg tablet 40 mg PO QDAY 7 Days Qty: 7 0RF Patient Comments: TAKE ONE TABLET BY MOUTH TWICE DAILY A DIURETIC permethrin 5 % cream 1 applic topical Q14D Qty: 60 0RF Rx Instructions: apply second treatment 14 days after first treatment if live lice remain albuterol sulfate 90 mcg/actuation aerosol powdr breath activated 2 inh inhalation Q6H PRN (Reason: shortness of breath or wheezing) Qty: 1 3RF Trelegy Ellipta 200-62.5-25 mcg blister with device 1 inh inhalation Q24H Qty: 60 0RF Discontinued prednisone 5 mg tablet See Taper PO QDAY Qty: 20 0RF Taper: Prednisone Taper 20 mg DAILY for 2 Days and 0 Hour 10 mg DAILY for 2 Days and 0 Hour 5 mg DAILY for 7 Days and 0 Hour Referrals: Nickolas Jones MD [Primary Care Provider] - Patient/Caregiver Discharge Instructions Education Materials: COPD: Coping with Fatigue Print Language: Armenian Stand Alone Forms: [facility] Award Info., Patient Portal Info Letter Discharge Order Discharge Orders: Discharge (Routine); Ordered 03/28/25 Ordered By: Lai Avendaño Quality Discharge Quality Measures VTE prophylaxis
--- NOTE | 2025-03-28 11:53 | PC.SS ---
Addendum entered by Kylee Rivera 03/28/25 12:59: SS follow up note; ETA with [facility] is 1330. Patient and patient's nurse Karyna aware. Original Note: SS follow up note; SS was contacted by patient's nurse and she informed SS that patient did not have a ride home and was needing 02. SS contacted [facility] and they informed SS that patient's account is not active. SS will need to get [employer] form signed for Ambulance transport. SS will inform patient that [employer] form will be submitted however next time will be responsible to pay for his own transportation.
== END 2025-03-28 13:28 | disposition home or self-care (01) | DRG 208 ==
LOC: SERX 08:53 → SERHOLD 16:40 → S2SX 20:19 → S3SX 03-27 22:22
PROVIDERS: Student in an Organized Health Care Education/Training Program; Admitting Provider Internal Medicine; Emergency Provider Emergency Medicine; PCP Family Medicine; Visit Provider Internal Medicine
DX: J96.22 Acute and chronic respiratory failure with hypercapnia (principal); J18.9 Pneumonia, unspecified organism; G93.41 Metabolic encephalopathy; I50.32 Chronic diastolic (congestive) heart failure; J44.1 Chronic obstructive pulmonary disease with (acute) exacerbation; J44.0 Chronic obstructive pulmonary disease with (acute) lower respiratory infection; E87.4 Mixed disorder of acid-base balance; J96.21 Acute and chronic respiratory failure with hypoxia; I11.0 Hypertensive heart disease with heart failure; E78.5 Hyperlipidemia, unspecified; I48.0 Paroxysmal atrial fibrillation; E87.5 Hyperkalemia; E87.8 Other disorders of electrolyte and fluid balance, not elsewhere classified; Z79.82 Long term (current) use of aspirin; Z91.199 Patient's noncompliance with other medical treatment and regimen due to unspecified reason; Z95.1 Presence of aortocoronary bypass graft; D69.6 Thrombocytopenia, unspecified; F17.210 Nicotine dependence, cigarettes, uncomplicated; D64.9 Anemia, unspecified; Z79.899 Other long term (current) drug therapy; Z99.81 Dependence on supplemental oxygen; I95.9 Hypotension, unspecified
CPT/HCPCS: 36415; 36600; 71045; 80048; 80053; 80069; 80307; 81001; 82803; 83690; 83735; 83880; 84100; 84484; 85025; 85610; 85730; 87081; 87205; 93005; 93225; 93306; 94002; 94003; 94640; 94644; 94660; 96365; 96367; 96368; 96374; 99283; 99291; A9270; J0360; J0456; J0696; J1644; J1650; J1938; J2251; J2543; J2704; J2919; J3010; J3490; J7050; J7512

== ENCOUNTER 2025-04-13 07:08 | Inpatient (IN) | payer MEDICARE, MEDICAID, SELFPAY ==
[2025-04-13] VITALS (30 sets, daily range): BP systolic 128–186; BP diastolic 62–86; PULSE 58–94; RESP 13–45; TEMP 36.2–36.8; O2SAT 85–100; BMI 33.9
--- NOTE | 2025-04-13 07:13 | PD.EDADULT ---
ED General RME/HPI General Stated complaint: SOB Arrival date/time: 04/13/25 07:08 RME / HPI RME / HPI narrative: DR. NUNEZ MAIN ED EVALUATION: This section includes all my notes and documentations, including HPI, PE, and ED course.? Rohit Nunez MD HPI: 64 year old male with past medical history significant for COPD on 4L home O2, multiple admissions and intubation (most recently intubated 03/16/2025), HFpEF 55-60% 09/2024, s/p CABG, AFib, hypertension, hyperlipidemia presents to the Emergency Department BIBA with complaints of lethargy, increased cough, and shortness of breath. Per EMS, the patient's roommate called [phone] because the patient was having episodes of going in and out of sleep, not acting appropriately . Patient himself has no complaints other than increased cough with green phlegm and chronic shortness of breath. Per EMS, patient was satting in the 70's and at 6L/min the patient was satting at 93%. No other complaints reported at this time. ROS: All negative except as documented in HPI. Physical Exam: General:? Alert and oriented.? Lethargic. Eyes:? Conjunctivae and lids clear. ENT:? No nasal congestion.? ? Neck:? Supple. Heart:? RRR. Lungs:? Severe decreased air movement. Wheezing.? No rhonchi or rales.? Abdomen:? Soft and nontender.? Legs:? No clubbing, cyanosis, edema. Skin:? Warm and dry.? Neuro:? Alert and oriented X 3.? I reviewed all diagnostic test results. My interpretation of the EKG is? My interpretation of the chest x-ray is My review of the CT report is? Blood tests and urine tests At this point, diagnoses include Treatment here included Significant improvement Not yet done: I discussed the case with our hospitalist.? About the presentation and exam and diagnostics and treatments here.? And need of further care in the hospital. Will accept the patient. Not yet done: Based on my best medical judgment, made decision no further evaluation or treatment indicated at this time.? Patient understands and agrees to the discharge instructions customized and printed, see below. Rohit Nunez MD Related Data Previous Rx's ?Medication ?Instructions ?Recorded nicotine 21 mg/24 hr daily 21 mg top QDAY PRN Nicotine 12/31/24 transdermal patch Cravings #7 ea albuterol sulfate 90 mcg/actuation 2 inh inhalation Q6H PRN shortness 03/19/25 breath activated powder inhaler of breath or wheezing #1 ea fluticasone fur. 200 mcg-umeclid 1 inh inhalation Q24H #60 ea 03/19/25 62.5 mcg-vilant 25 mcg inhalat.powder (Trelegy Ellipta) furosemide 40 mg tablet 40 mg PO QDAY 7 days #7 tabs 03/19/25 permethrin 5 % topical cream 1 applic topical Q14D 2 doses #60 03/19/25 grams prednisone 10 mg tablet See Taper PO QDAY #22 tabs 03/28/25 Allergies Allergy/AdvReac Type Severity Reaction Status Date / Time No Known Allergies Allergy Verified 01/21/25 12:16 Course Quality Measures none Orders Category Date Time Status Bedside COVID-19 Antigen Test NOW Care 04/13/25 07:17 Active Bedside Influenza A&B Antigen Test NOW Care 04/13/25 07:17 Active EKG (ED ONLY) *Do not use* NOW Care 04/13/25 07:18 Active Saline [Insert IV] NOW Care 04/13/25 07:[address] chest abdomen pelvis wo Stat Exams 04/13/25 07:[address] head/brain wo con Stat Exams 04/13/25 07:18 Ordered EKG (ED Only) Stat Exams 04/13/25 07:18 Ordered XR chest 1V portable Stat Exams 04/13/25 07:18 Ordered ABG [Arterial Blood Gas] Stat Lab 04/13/25 07:18 Ordered BNP [B-Type Natriuretic Peptide] Stat Lab 04/13/25 07:18 Ordered Bilirubin,Direct Stat Lab 04/13/25 07:18 Ordered Blood Culture (Lab) Stat Lab 04/13/25 07:18 Ordered CBC Stat Lab 04/13/25 07:18 Ordered CMP [Comprehensive Metabolic Panel] Stat Lab 04/13/25 07:18 Ordered CRP [C-Reactive Protein] Stat Lab 04/13/25 07:18 Ordered D-Dimer Stat Lab 04/13/25 07:18 Ordered ESR [Sed Rate (ESR)] Stat Lab 04/13/25 07:18 Ordered Free T4 (Free Thyroxine) Stat Lab 04/13/25 07:18 Ordered Lactate (Lactic Acid) Stat Lab 04/13/25 07:19 Ordered Magnesium Stat Lab 04/13/25 07:18 Ordered PT [Prothrombin Time with INR] Stat Lab 04/13/25 07:19 Ordered PTT [Partial Thromboplastin Time] Stat Lab 04/13/25 07:19 Ordered Procalcitonin Stat Lab 04/13/25 07:19 Ordered TSH [Thyroid Stimulating Hormone] Stat Lab 04/13/25 07:18 Ordered Troponin I Stat Lab 04/13/25 07:18 Ordered Albuterol/Ipratr Rt Marita [Duoneb Rt Marita] Med 04/13/25 07:17 Discontinued 6 ml INH X1 ONE Magnesium Sulfate 2 GM Ivpb [Magnesium Sulfate Ivpb] Med 04/13/25 07:17 Active 2 gm in 50 ml IV X1 MethylPREDNISolone.* [SoluMEDROL Inj] Med 04/13/25 07:17 Discontinued 125 mg IVP X1 ONE Vital Signs Vital signs: Vital Signs Temperature 97.9 F 04/13/25 07:10 Pulse Rate 86 04/13/25 07:10 Respiratory Rate 17 04/13/25 07:10 Blood Pressure 176/78 H 04/13/25 07:10 Pulse Oximetry (%) 96 04/13/25 07:10 Oxygen Delivery Method Nasal Cannula 04/13/25 07:10 Oxygen Flow Rate 6 04/13/25 07:10 Discharge Plan Prescriptions/Referrals Prescriptions/Med Rec: No Action nicotine 21 mg/24 hr Patch 24 Hour 21 mg top QDAY PRN (Reason: Nicotine Cravings) Qty: 7 0RF prednisone 10 mg tablet See Taper PO QDAY Qty: 22 0RF Taper: Prednisone Taper 40 mg DAILY for 1 Day and 0 Hour 30 mg DAILY for 3 Days and 0 Hour 20 mg DAILY for 3 Days and 0 Hour 10 mg DAILY for 3 Days and 0 Hour furosemide 40 mg tablet 40 mg PO QDAY 7 Days Qty: 7 0RF Patient Comments: TAKE ONE TABLET BY MOUTH TWICE DAILY A DIURETIC permethrin 5 % cream 1 applic topical Q14D Qty: 60 0RF Rx Instructions: apply second treatment 14 days after first treatment if live lice remain albuterol sulfate 90 mcg/actuation aerosol powdr breath activated 2 inh inhalation Q6H PRN (Reason: shortness of breath or wheezing) Qty: 1 3RF Trelegy Ellipta 200-62.5-25 mcg blister with device 1 inh inhalation Q24H Qty: 60 0RF Patient/Caregiver Discharge Instructions Print Language: Yoruba MDM Clinical Information Provided by patient and EMS Medical Records Reviewed [facility] and EMS Meds/Rx Considered, not Ordered None Labs/Rad/Tests considered, not Ordered None Chronic Illness/Social Conditions Add or document further as needed: COPD on 4L home O2, multiple admissions and intubation (most recently intubated 03/16/2025), HFpEF 55-60% 09/2024, s/p CABG, AFib, hypertension, hyperlipidemia Lab Interpretation Labs: see narrative above Imaging Imaging interpretation: see narrative above Medication Administration(s) Medication Administration History Magnesium Sulfate (Magnesium Sulfate Ivpb) 2 gm in 50 mls @ 25 mls/hr IV X1 ONE Stop: 04/13/25 09:16 Discontinued Medications Albuterol/Ipratropium (Albuterol/Ipratropium (Duoneb) Rt Marita 3 Ml Nebu) 6 ml INH X1 ONE Stop: 04/13/25 07:18 Methylprednisolone Sodium Succinate (Methylprednisolone Sod Succ 62.5 Mg/Ml 2ml Vial) 125 mg IVP X1 ONE Stop: 04/13/25 07:18 Diagnosis Differential diagnosis: COPD exacerbation, CHF, PE, asthma
--- NOTE | 2025-04-13 07:18 | XR_ITS ---
Examination: AP chest single view TECHNIQUE: Sitting AP portable chest single view Date and time: April 13, 2025 0834 hours Comparison March 27, 2025 INDICATIONS: Shortness of breath lethargy today FINDINGS: Significant left base pneumonia remains Mild enlargement cardiac contour with mild to moderate vascular congestion Prominent osteopenia IMPRESSION: Significant pneumonia left base remains
--- NOTE | 2025-04-13 07:18 | EKG_ITS ---
[facility] Test Date: 2025-04-13 Pat Name: LELAND GUTHRIE Department: Room: - Gender: Male Console Attendant: : 1960 Requested By: Rohit Redd Order Number: [id number] Reading MD: Rohit Redd Measurements Intervals [place] Rate: 88 P: 81 [place]: 145 QRS: 77 QRSD: 118 T: 67 QT: 362 QTc: 440 Interpretive Statements SINUS RHYTHM MODERATE INTRAVENTRICULAR CONDUCTION DELAY [110+ ms QRS DURATION] Compared to ECG 03/25/2025 08:42:51 No significant changes /store/S0/[id number]
[2025-04-13] MEDS: ALBUTEROL/IPRATROPIUM (Duoneb) RT SOL 3 ML NEBU 6 ML INH (07:41)
--- NOTE | 2025-04-13 07:41 | EDNOTE_ITS ---
ED SOB =RME/HPI General Chief Complaint: Shortness of Breath/Dyspnea Stated Complaint: SOB Time Seen by Provider: 04/13/25 07:41 Arrival date/time: 04/13/25 07:08 RME / HPI RME / HPI Narrative: DR. NUNEZ MAIN ED EVALUATION: This section includes all my notes and documentations, including HPI, PE, and ED course.? Rohit Nunez MD HPI: 64 year old male with past medical history significant for COPD on 4L home O2, multiple admissions and intubation (most recently intubated 03/16/2025), HFpEF 55-60% 09/2024, s/p CABG, AFib, hypertension, hyperlipidemia presents to the Emergency Department BIBA with about a week history of worsening cough, productive cough, purulent sputum, and dyspnea. Per EMS, the patient's roommate called 911 because the patient was having episodes of going in and out of sleep during the day and not acting appropriately. Per EMS, patient was satting in the 70's and at 6L/min the patient was satting at 93%. No other complaints. ROS: All negative except as documented in HPI. Physical Exam: General: Lethargic. Hypoxia noted. Eyes:? Conjunctivae and lids clear.? EOMI.? PERRL. ENT:? No nasal congestion.? Pharynx normal.? Tympanic membrane normal bilaterally.??? Neck:? Supple.? No carotid bruit.? No JVD.?? Heart:? RRR.? Lungs: Moderate respiratory distress.? Severely decreased air movement with wheezing and rales. Abdomen:? Soft and nontender.? Normal bowel sounds.? No distension.? No rebound or guarding.?? Back:? No CVA tenderness.?? Legs:? No clubbing, cyanosis, edema.? Skin:? Warm and dry.?? Neuro:? Alert and oriented X 3.? Cranial Nerves II-XII grossly intact.? No peripheral motor deficits. I reviewed EMS notes. I reviewed all diagnostic test results. My interpretation of the EKG is: Sinus rhythm (88 bpm) with nonspecific ST-T changes. My interpretation of the chest x-ray is infiltrates. Blood tests unremarkable. ABG showed pH 7.20, pCO2 126, pHCO3 49. COVID/influenza negative. At this point, diagnoses include acute on chronic respiratory failure with hypoxia and hypercapnia, pneumonia, and COPD exacerbation. Treatment here included BiPAP, Solu-Medrol, neb treatments, MgSO4 2 gram IV, Zithromax, and Rocephin. Significant improvement not noted. I discussed the case with our hospitalist.? About the presentation and exam and diagnostics and treatments here.? And need of further care in the hospital. Will accept the patient. Rohit Nunez MD Related Data Previous Rx's ?Medication ?Instructions ?Recorded nicotine 21 mg/24 hr daily 21 mg top QDAY PRN Nicotine 12/31/24 transdermal patch Cravings #7 ea albuterol sulfate 90 mcg/actuation 2 inh inhalation Q6 H PRN shortness 03/19/25 breath activated powder inhaler of breath or wheezing #1 ea fluticasone fur. 200 mcg-umeclid 1 inh inhalation Q24H #60 ea 03/19/25 62.5 mcg-vilant 25 mcg inhalat.powder (Trelegy Ellipta) furosemide 40 mg tablet 40 mg PO QDAY 7 days #7 tabs 03/19/25 permethrin 5 % topical cream 1 applic topical Q14D 2 d oses #60 03/19/25 grams prednisone 10 mg tablet See Taper PO QDAY #22 tabs 0 03/28/25 Allergies Allergy/AdvReac Type Severity Reaction Status Date / Time No Known Allergies Allergy Verified 04/13/25 07:30 Course Quality Measures none Orders Category Date Time Status Bedside COVID-19 Antigen Test NOW Care 04/13/25 07:17 Completed Bedside Influenza A&B Antigen Test NOW Care 04/13/25 07:17 Completed EKG (ED ONLY) *Do not use* NOW Care 04/13/25 07:18 Completed Saline [Insert IV] NOW Care 04/13/25 07:17 Completed EKG (ED Only) Stat Exams 04/13/25 07:18 Draft XR chest 1V portable Stat Exams 04/13/25 07:18 Completed ABG [Arterial Blood Gas] Stat Lab 04/13/25 07:42 Completed BNP [B-Type Natriuretic Peptide] Stat Lab 04/13/25 08:19 Completed Bilirubin,Direct Stat Lab 04/13/25 08:19 Completed Blood Culture (Lab) Stat Lab 04/13/25 08:10 Results CBC Stat Lab 04/13/25 08:19 Completed CMP [Comprehensive Metabolic Panel] Stat Lab 04/13/25 08:19 Completed CRP [C-Reactive Protein] Stat Lab 04/13/25 08:19 Completed D-Dimer Stat Lab 04/13/25 08:19 Completed ESR [Sed Rate (ESR)] Stat Lab 04/13/25 08:19 Completed Free T4 (Free Thyroxine) Stat Lab 04/13/25 08:19 Completed Lactate (Lactic Acid) Stat Lab 04/13/25 08:19 Completed Magnesium Stat Lab 04/13/25 08:19 Completed PT [Prothrombin Time with INR] Stat Lab 04/13/25 08:19 Completed PTT [Partial Thromboplastin Time] Stat Lab 04/13/25 08:19 Completed Procalcitonin Stat Lab 04/13/25 08:19 Completed TSH [Thyroid Stimulating Hormone] Stat Lab 04/13/25 08:19 Completed Troponin I Stat Lab 04/13/25 08:19 Completed Albuterol/Ipratr Rt Marita [Duoneb Rt Marita] Med 04/13/25 07:17 Discontinued 6 ml INH X1 ONE Azithromycin Inj [Zithromax Inj] 500 mg Med 04/13/25 09:23 Discontinued Sodium Chloride 0.9% 250 ml [Ns] 250 ml IV X1 Etomidate Inj [Amidate Inj] Med 04/13/25 09:48 Discontinued 20 mg IVP X1 ONE Magnesium Sulfate 2 GM Ivpb [Magnesium Sulfate Ivpb] Med 04/13/25 07:17 Disc ontinued 2 gm in 50 ml IV X1 MethylPREDNISolone.* [SoluMEDROL Inj] Med 04/13/25 07:17 Discontinued 125 mg IVP X1 ONE Propofol 1,000 mg Ivpb [Diprivan Ivpb] Med 04/13/25 09:49 Discontinued 1,000 mg in 100 ml IV 5 mcg/kg/min Succinylcholine Inj [Anectine Inj] Med 04/13/25 09:48 Discontinued 100 mg IV X1 ONE cefTRIAXone/D5w 1gm IV premix [Rocephin/D5w 1gm IV Med 04/13/25 09:23 Discontinued premix] 1 gm in 50 ml IV X1 BiPAP / CPAP NOW RT 04/13/25 08:01 Completed Vital Signs Vital signs: Vital Signs Temperature 97.9 F 04/13/25 07:10 Pulse Rate 86 04/13/25 07:10 Respiratory Rate 17 04/13/25 07:10 Blood Pressure 176/78 H 04/13/25 07:10 Pulse Oximetry (%) 96 04/13/25 07:10 Oxygen Delivery Method Nasal Cannula 04/13/25 07:10 Oxygen Flow Rate 6 04/13/25 07:10 Shortness of Breath / Dyspnea MDM Narrative MDM Narrative:: I, Carole Oshea, am scribing for and in the presence of Dr. Nunez. Patient data External records reviewed:: [facility] previous records and EMS form Clinical information provided by:: patient and EMS Social determinants that could affect healthcare access:: none Patient has the following chronic illnesses:: COPD on 4L home O2, multiple admissions and intubation (most recently intubated 03/16/2025), HFpEF 55-60% 09/2024, s/p CABG, AFib, hypertension, hyperlipidemia How is presenting disease/condition affected by chronic disease/condition?: exacerbated by Evaluation data The following diagnostics were reviewed and interpreted by me:: lab results, radiology exam(s) and EKG tracing(s) (My interpretation of the EKG is: Sinus rhythm (88 bpm) with nonspecific ST-T changes. Rohit Nunez MD) Lab and/or radiology exams considered but not ordered:: none Interpretation Summary: I reviewed all diagnostic test results. My interpretation of the EKG is: Sinus rhythm (88 bpm) with nonspecific ST-T changes. My interpretation of the chest x-ray is infiltrates. Blood tests unremarkable. ABG showed pH 7.20, pCO2 126, pHCO3 49. COVID/influenza negative. Medications / Prescriptions Medications or Prescriptions considered but not ordered:: none Medication administrations:: Medication Administration History Acetaminophen (Acetaminophen 325 Mg Tablet) 650 mg PO Q6H PRN PRN Reason: Fever >100.3 or pain Stop: 05/13/25 10:16 Albuterol/Ipratropium (Albuterol/Ipratropium (Duoneb) Rt Marita 3 Ml Nebu) 3 ml INH Q6HRRT FREDIS Stop: 05/13/25 12:59 Last Admin: 04/15/25 01:06 Dose: 3 ml Documented By: Admin: 04/14/25 18:41 Dose: 3 ml Documented By: Admin: 04/14/25 13:04 Dose: 3 ml Documented By: Admin: 04/14/25 06:12 Dose: 3 ml Documented By: Admin: 04/14/25 02:20 Dose: 3 ml Documented By: Admin: 04/13/25 18:30 Dose: 3 ml Documented By: Admin: 04/13/25 12:07 Dose: 3 ml Documented By: FLAKITA Atorvastatin Calcium (Atorvastatin Calcium 20 Mg Tablet) 20 mg PO HS FREDIS Stop: 05/14/25 20:59 Last Admin: 04/14/25 22:18 Dose: 20 mg Documented By: CTF Enoxaparin Sodium (Enoxaparin Sod Inj 40 Mg/0.4 Ml Syringe) 40 mg SC QDAY FREDIS Stop: 04/27/25 19:14 Last Admin: 04/14/25 08:32 Dose: 40 mg Documented By: Admin: 04/13/25 19:25 Dose: 40 mg Documented By: RH Comments: CALLED ESTELLE TO VERIFY OK TO GIVE WITH LOW PLT COUNT OF 95 THOUSAND. ESTELLE STATES IT'S FINE TO GIVE WITH PLATLETS THAT LOW. Folic Acid (Folic Acid 1 Mg Tablet) 1 mg PO BID FREDIS Stop: 04/18/25 20:59 Last Admin: 04/14/25 22:18 Dose: 1 mg Documented By: Admin: 04/14/25 08:04 Dose: 1 mg Documented By: Admin: 04/13/25 21:49 Dose: 1 mg Documented By: SINA Furosemide (Furosemide 40 Mg Tablet) 40 mg PO QDAY FREDIS Stop: 05/14/25 15:14 Last Admin: 04/14/25 16:04 Dose: 40 mg Documented By: IA Hydralazine HCl (Hydralazine Inj 20 Mg/Ml Vial) 10 mg IVP Q4H PRN PRN Reason: SBP >170 Stop: 05/13/25 13:53 Levofloxacin/Dextrose (Levaquin Ivpb) 750 mg in 150 mls @ 100 mls/hr IV QDAY FREDIS Stop: 04/20/25 13:14 Last Admin: 04/14/25 08:05 Dose: 100 mls/hr Documented By: Infusion: 04/13/25 18:30 Dose: Infused Documented By: Admin: 04/13/25 17:00 Dose: 100 mls/hr Documented By: ER Thiamine HCl 200 mg/ Sodium (Chloride) 52 mls @ 102 mls/hr IV DAILY [facility] Stop: 05/13/25 17:59 Last Admin: 04/14/25 08:04 Dose: 102 mls/hr Documented By: Infusion: 04/13/25 18:50 Dose: Infused Documented By: Admin: 04/13/25 18:19 Dose: 102 mls/hr Documented By: ER Ceftriaxone Sodium/Dextrose (Rocephin/D5w 1gm Iv Premix) 1 gm in 50 mls @ 100 mls/hr IV QDAY [facility] Stop: 04/21/25 15:14 Last Admin: 04/14/25 16:04 Dose: 100 mls/hr Documented By: IA Lisinopril (Lisinopril 2.5 Mg Tablet) 5 mg PO QDAY [facility] Stop: 05/14/25 15:29 Last Admin: 04/14/25 16:04 Dose: 5 mg Documented By: IA Lorazepam (Lorazepam 0.5 Mg Tablet) 0.5 mg PO Q4HR PRN PRN Reason: CIWA Score 2-6 Stop: 04/18/25 17:57 Lorazepam (Lorazepam 0.5 Mg Tablet) 2 mg PO Q4HR PRN PRN Reason: CIWA SCORE 12-15 Stop: 04/18/25 17:57 Lorazepam (Lorazepam 0.5 Mg Tablet) 1 mg PO Q4HR PRN PRN Reason: CIWA SCORE 7-11 Stop: 04/18/25 17:57 Lorazepam (Lorazepam 2 Mg/Ml Vial) 1 mg IV Q2HR PRN PRN Reason: CIWA SCORE 16-19 Stop: 04/18/25 17:57 Lorazepam (Lorazepam 2 Mg/Ml Vial) 2 mg IV Q2HR PRN PRN Reason: CIWA SCORE 20-25 Stop: 04/18/25 17:57 Lorazepam (Lorazepam 2 Mg/Ml Vial) 2 mg IVP X1 PRN PRN Reason: Breakthrough Agitation Methylprednisolone Sodium Succinate (Methylprednisolone Sod Succ 40 Mg Vial) 40 mg IVP BID [facility] Stop: 04/21/25 20:59 Last Admin: 04/14/25 22:19 Dose: 40 mg Documented By: CTF Nicotine (Nicotine Patch 21 Mg/24 Hr Patch.Td24) 21 mg TOP QDAY FREDIS Stop: 05/13/25 17:59 Last Admin: 04/14/25 08:35 Dose: Not Given Documented By: JEFF Non-Admin Reason: Patient Refused Admin: 04/13/25 18:18 Dose: 21 mg Documented By: ER Ondansetron HCl (Ondansetron Inj 2 Mg/Ml Inj 2 Ml) 4 mg IVP Q6H PRN; Protocol PRN Reason: NAUSEA OR VOMITING Stop: 05/13/25 10:16 Discontinued Medications Albuterol/Ipratropium (Albuterol/Ipratropium (Duoneb) Rt Marita 3 Ml Nebu) 6 ml INH X1 ONE Stop: 04/13/25 07:18 Last Admin: 04/13/25 07:41 Dose: 6 ml Documented By: FLAKITA Atorvastatin Calcium (Atorvastatin Calcium 20 Mg Tablet) 80 mg PO HS FREDIS Stop: 05/14/25 20:59 Azithromycin (Azithromycin 250 Mg Tablet) 250 mg PO QDAY [facility] Stop: 04/21/25 15:14 Last Admin: 04/14/25 16:03 Dose: 250 mg Documented By: IA Etomidate (Etomidate Inj 2 Mg/Ml Vial 10 Ml) 20 mg IVP X1 ONE Stop: 04/13/25 09:49 Last Admin: 04/13/25 11:25 Dose: Not Given Documented By: ER Non-Admin Reason: Held for Procedure Magnesium Sulfate (Magnesium Sulfate Ivpb) 2 gm in 50 mls @ 25 mls/hr IV X1 ONE Stop: 04/13/25 09:16 Last Infusion: 04/13/25 10:10 Dose: Infused Documented By: Admin: 04/13/25 07:59 Dose: 25 mls/hr Documented By: TM Azithromycin 500 mg/ Sodium (Chloride) 250 mls @ 250 mls/hr IV X1 ONE Stop: 04/13/25 10:22 Last Admin: 04/13/25 11:31 Dose: 250 mls/hr Documented By: ER Ceftriaxone Sodium/Dextrose (Rocephin/D5w 1gm Iv Premix) 1 gm in 50 mls @ 100 mls/hr IV X1 ONE Stop: 04/13/25 09:52 Last Infusion: 04/13/25 12:20 Dose: Infused Documented By: Admin: 04/13/25 11:24 Dose: 100 mls/hr Documented By: ER Propofol (Diprivan Ivpb) 1,000 mg in 100 mls @ 3.402 mls/hr IV .Q24H PRN; Protocol PRN Reason: PER PROTOCOL Stop: 05/13/25 09:48 Dexmedetomidine/Sodium Chloride (Precedex Ivpb) 400 mcg in 100 mls @ 5.67 mls/hr IV .[id number] PRN; Protocol PRN Reason: Per PROTOCOL Stop: 05/13/25 10:18 Ceftriaxone Sodium/Dextrose (Rocephin/D5w 1gm Iv Premix) 1 gm in 50 mls @ 100 mls/hr IV QDAY [facility] Stop: 04/21/25 08:59 Azithromycin 500 mg/ Sodium (Chloride) 250 mls @ 250 mls/hr IV QDAY FREDIS Stop: 04/21/25 08:59 Azithromycin 500 mg/ Sodium (Chloride) 250 mls @ 250 mls/hr IV QDAY FREDIS Stop: 04/21/25 08:59 Acetazolamide Sodium 500 mg/ (Sodium Chloride) 50 mls @ 100 mls/hr IV X1 ONE Stop: 04/14/25 10:36 Last Admin: 04/14/25 12:02 Dose: Not Given Documented By: IA Non-Admin Reason: Not In Room Methylprednisolone Sodium Succinate (Methylprednisolone Sod Succ 62.5 Mg/Ml 2ml Vial) 125 mg IVP X1 ONE Stop: 04/13/25 07:18 Last Admin: 04/13/25 07:58 Dose: 125 mg Documented By: BARBARA Methylprednisolone Sodium Succinate (Methylprednisolone Sod Succ 40 Mg Vial) 60 mg IVP BID [facility] Stop: 04/21/25 08:59 Last Admin: 04/14/25 08:04 Dose: 60 mg Documented By: JEFF Permethrin (Permethrin Cr 5% 60 Gm Tube) 0 gm TOP X1 ONE Stop: 04/13/25 18:28 Last Admin: 04/13/25 19:10 Dose: 1 appln Documented By: RH Potassium Phos/Sodium Phos (Naph,[facility] 1 Packet (1.5 Gm)) 1 packet PO X1 ONE Stop: 04/14/25 14:43 Last Admin: 04/14/25 15:00 Dose: 1 packet Documented By: IA Sodium Chloride (Sodium Chloride Rt 10% 15 Ml Nebu) 5 ml INH X1 ONE Stop: 04/13/25 13:04 Succinylcholine Chloride (Succinylcholine Inj 20 Mg/Ml Vial 10 Ml) 100 mg IV X1 ONE Stop: 04/13/25 09:49 Last Admin: 04/13/25 11:25 Dose: Not Given Documented By: ER Non-Admin Reason: Held for Procedure Treatment here from me included BiPAP, Solu-Medrol, neb treatments, MgSO4 2 gram IV, Zithromax, and Rocephin. Consultations Consultation(s) initiated? (list below): Yes Consultation #1 (Physician, Specialty, Details): I discussed the case with our hospitalist.? About the presentation and exam and diagnostics and treatments here.? And need of further care in the hospital. Will accept the patient. Diagnosis Shortness of Breath Differential Diagnosis: acute exacerbation of chronic obstructive airways disease, congestive heart failure, community acquired pneumonia, asthma with exacerbation and pulmonary embolism Most likely diagnosis given after review of the tests above:: Acute on chronic respiratory failure with hypoxia and hypercapnia, pneumonia, and COPD exacerbation. Admission Indicated Admission indicated?: indicated Explain why admission is indicated or not indicated:: Acute on chronic respiratory failure with hypoxia and hypercapnia, pneumonia, and COPD exacerbation. Admission Request Was there a request for admission?: Yes Admission Attestation Admission request attestation: Discussed case with Hospitalist service regarding admission. Discussed patients ED course, exam findings, labs, and radiology results. The Hospitalist [agrees] to accept the patient for admission. Disposition Plan Disposition Plan: Admit Discharge Plan Plan Patient Disposition: Admit Acute Care w/in Hospital Problem List Clinical Impression: Acute on chronic respiratory failure with hypoxia and hypercapnia, Pneumonia, COPD exacerbation
[2025-04-13 07:47] LABS: Base Excess 16 (-3-3); HCO3 49 mEq/L (20-26); O2 Saturation 92 % (91-98); PCO2 126 mmHg (32.0-48.0); PO2 71 mmHg (83-108)
[2025-04-13 07:50] LABS: Allen Test Performed/OK; Inspired O2, VO2 Liters 6 L/min; Puncture Site Right Radial
[2025-04-13] MEDS: MethylPREDNISolone SOD SUCC 62.5 MG/ML 2ML VIAL 125 MG IVP (07:58)
[2025-04-13] MEDS: Magnesium Sulfate 2 GM Ivpb 2 GM/50 ML BAG IV (07:59)
[2025-04-13 08:39] LABS: Lactate (Lactic Acid) 0.6 mMol/L (0.4-2.0)
[2025-04-13 08:42] LABS: Basophils % (Auto) 1 % (0-2.5); Eosinophils # (Auto) 0.2 Thou/mm3 (0.0-0.5); Eosinophils % (Auto) 2 % (0-10); Hematocrit 44.9 % (41.0-53.0); Hemoglobin 13.6 g/dL (13.5-16.0); Immature Granulocytes % (Auto) 1 % (0-0); Immature Granulocytes Auto 0.06 Thou/mm3 (0.00-0.00); Lymphocytes % (Auto) 15 % (10-50); Mean Corpuscular HGB Conc 30.3 g/dl (31.0-37.0); Mean Corpuscular Hemoglobin 30.8 pg (25.0-35.0); Mean Corpuscular Volume 102 fL (80-100); Monocytes # (Auto) 0.5 Thou/mm3 (0.0-0.8); Monocytes % (Auto) 8 % (0-12); Neutrophils # (Auto) 4.8 Thou/mm3 (1.8-7.7); Neutrophils % (Auto) 73 % (37-80); Nucleated Red Blood Cell % 0 /100 WBC (0); Platelet Count 95 Thou/mm3 (140-440); RDW Standard Deviation 56.9 fL (35.1-43.9); Red Blood Count 4.42 Miln/mm3 (4.50-5.90); White Blood Count 6.6 Thou/mm3 (3.8-10.6)
[2025-04-13 08:52] LABS: B-Type Natriuretic Peptide 70 pg/mL (0-100)
[2025-04-13 08:56] LABS: D-Dimer 1100 ng/mL (<600)
[2025-04-13 09:12] LABS: Alanine Aminotransferase 16 U/L (10-49); Albumin, Serum 4.3 gm/dL (3.4-4.8); Albumin/Globulin Ratio 1.8 (1.2-2.2); Alkaline Phosphatase 48 U/L (46-116); Anion Gap 6 (7-16); Aspartate Amino Transferase 16 U/L (0-34); BUN/Creatinine Ratio 18 Ratio (12-20); Bilirubin,Direct 0.2 mg/dL (0.0-0.3); Bilirubin,Total 0.4 mg/dL (0.3-1.2); Blood Urea Nitrogen 14 mg/dL (9-23); C-Reactive Protein 6.3 mg/dL (0.0-0.9); Carbon Dioxide > 40.0 mMol/L (20.0-31.0); Chloride 96 mMol/L (98-107); Creatinine (Component) 0.8 mg/dL (0.6-1.3); Estimated Creatinine Clearance 121.3 mL/min (>60); Free T4 (Free Thyroxine) 1.18 ng/dL (0.89-1.76); Globulin 2.4 gm/dL (2.3-3.5); Glucose 117 mg/dL (74-106); Osmolality,Calculated 284 (275-295); Potassium 4.4 mMol/L (3.4-5.1); Procalcitonin 0.14 ng/ml (0.0-0.49); Sodium 142 mMol/L (136-145); Thyroid Stimulating Hormone 0.49 uIU/mL (0.55-4.78); Total Protein 6.7 gm/dL (5.7-8.2); Troponin I < 0.020 ng/mL (0.0-0.045); eGFR > 60 See Note
[2025-04-13 09:18] LABS: Sed Rate (ESR) 66 mm/hr (0-20)
[2025-04-13 10:14] LABS: Partial Thromboplastin Time 24.8 Seconds (22.0-36.0); Prothrombin Time 11.1 Seconds (9.0-12.2)
--- NOTE | 2025-04-13 10:16 | PD.RESHP ---
Documentation for date of: 04/13/25 HPI History of Present Illness Chief complaint: Altered mental status History of present illness: HPI: Patient somnolent and nonresponsive at the time of admission, history obtained from chart review. Apparently patient is 64 year old male with past medical history significant for COPD on 4L home O2, multiple admissions and intubation (most recently intubated 03/16/2025), HFpEF 55-60% 09/2024, s/p CABG, AFib, hypertension, hyperlipidemia presents to the Emergency Department [facility] with complaints of lethargy, increased cough, and shortness of breath. Per EMS, the patient's roommate called 911 because the patient was having episodes of going in and out of sleep, not acting appropriately . Patient himself has no complaints other than increased cough with green phlegm and chronic shortness of breath. Per EMS, patient was satting in the 70's and at 6L/min the patient was satting at 93%. No other complaints reported at this time. Patient remained unresponsive l upon arrival to the ED and BiPAP was started. ED course: BP 176/78, pulse 96, RR 17, temp 97.9 F, SpO2 96% on BiPAP. Labs showed pH 7.3, PCO2 126, pO2 71, CRP 6.3. Chest x-ray showed mild left base consolidation. In the ED patient received DuoNeb x 1, 125 Mg IV x 1, magnesium sulfate 2 g IV x 1, ceftriaxone 1 g IV x 1 and azithromycin 500 Mg IV x 1. Patient will be admitted to the ICU for management of COPD exacerbation Social: Patient states that he is a current pack-a-day smoker. At baseline ambulates with his wheelchair. He is a heavy drinker. The past 40 years and usually drinks 3 beers per day. Last drink 2 days ago Review of Systems Review of Systems ROS Unobtainable: unobtainable due to mental status Narrative Review of Systems: .ros Past Medical History Past Medical History NEUROLOGIC: Positive Seizures CARDIAC: Positive Cardiac Disorders, Atrial Fibrillation, Hypercholesterolemia, Congestive Heart Failure and Hypertension RESPIRATORY: Positive Chronic Obstructive Pulmonary Disease (COPD), Asthma and Pneumonia GASTROINTESTINAL: Positive Obesity GENITOURINARY: Positive Genitourinary Disorders PSYCHO/SOCIAL: Positive Recreational Drug Use and Anxiety OTHER HISTORY: Positive Falls Surgical History SURGICAL: Positive Open Heart Surgery and Coronary Artery Bypass Graft Social History SMOKING STATUS: Heavy (> 1 pack/day) SECOND HAND EXPOSURE: No SUBSTANCE USE: does not use Exam Vital Signs Temp Pulse Resp BP Pulse Ox O2 Del Method O2 Flow Rate 97.9 F 84 20 164/74 H 92 L Nasal Cannula 6 04/13/25 07:10 04/13/25 08:50 04/13/25 08:50 04/13/25 08:32 04/13/25 08:50 04/13/25 07:10 04/13/25 07:33 FiO2 50 04/13/25 08:50 Narrative Exam Constitutional Alert, oriented x 0 on BiPAP HEENT Vision grossly intact. Patent nares. Trachea midline Respiratory Chest normal on inspection and scattered wheezing throughout all lung hein cardiovascular S1 and S2 audible, RRR. No murmurs carotid bruit. No gross JVD. Abdominal Soft, obese and non tender to palpation in all quadrants. BS + Genitourinary No bladder tenderness, no flank pain. Normal to palpation Musculoskeletal Extremities tone within normal limits. Trace LE edema. Neurological GCS E1, V1, M3 Skin Warm, dry and intact. Chronic hyperpigmentation on shins multiple circular lesions throughout body, including skin folds. Results: Labs 04/15/25 05:32 04/15/25 05:32 Labs: Short CBC 04/13/25 Range/Units 08:19 WBC 6.6 (3.8-10.6) Thou/mm3 Hgb 13.6 (13.5-16.0) g/dL Hct 44.9 (41.0-53.0) % Plt Count 95 L D (140-440) Thou/mm3 BMP 04/13/25 08:19 Sodium 142 Potassium 4.4 Chloride 96 L Carbon Dioxide > 40.0 H BUN 14 Creatinine 0.8 Glucose 117 H Calcium 9.0 Cardiac Enzymes 04/13/25 Range/Units 08:19 Troponin I < 0.020 (0.0-0.045) ng/mL Liver Function 04/13/25 Range/Units 08:19 Total Bilirubin 0.4 (0.3-1.2) mg/dL Direct Bilirubin 0.2 (0.0-0.3) mg/dL AST 16 (0-34) U/L ALT 16 (10-49) U/L Alkaline Phosphatase 48 (46-116) U/L Albumin 4.3 (3.4-4.8) gm/dL ABG Interpretation ABG results: 04/13/25 07:42 ABG pH 7.20 L ABG pCO2 126 H* ABG pO2 71 L ABG HCO3 49 H ABG O2 Saturation 92 ABG Base Excess 16 H Quality Measures Quality Measures none Medications Home Medications and Allergies Allergies Allergy/AdvReac Type Severity Reaction Status Date / Time No Known Allergies Allergy Verified 04/13/25 07:30 Visit Medications Azithromycin 500 mg/ Sodium (Chloride) 250 mls @ 250 mls/hr IV X1 ONE Stop: 04/13/25 10:22 Propofol (Diprivan Ivpb) 1,000 mg in 100 mls @ 3.402 mls/hr IV .Q24H PRN; Protocol PRN Reason: PER PROTOCOL Stop: 05/13/25 09:48 Discontinued Medications Albuterol/Ipratropium (Albuterol/Ipratropium (Duoneb) Rt Marita 3 Ml Nebu) 6 ml INH X1 ONE Stop: 04/13/25 07:18 Last Admin: 04/13/25 07:41 Dose: 6 ml Etomidate (Etomidate Inj 2 Mg/Ml Vial 10 Ml) 20 mg IVP X1 ONE Stop: 04/13/25 09:49 Magnesium Sulfate (Magnesium Sulfate Ivpb) 2 gm in 50 mls @ 25 mls/hr IV X1 ONE Stop: 04/13/25 09:16 Last Admin: 04/13/25 07:59 Dose: 25 mls/hr Ceftriaxone Sodium/Dextrose (Rocephin/D5w 1gm Iv Premix) 1 gm in 50 mls @ 100 mls/hr IV X1 ONE Stop: 04/13/25 09:52 Methylprednisolone Sodium Succinate (Methylprednisolone Sod Succ 62.5 Mg/Ml 2ml Vial) 125 mg IVP X1 ONE Stop: 04/13/25 07:18 Last Admin: 04/13/25 07:58 Dose: 125 mg Succinylcholine Chloride (Succinylcholine Inj 20 Mg/Ml Vial 10 Ml) 100 mg IV X1 ONE Stop: 04/13/25 09:49 Assessment & Plan Plan Apparently patient is 64 year old male with past medical history significant for COPD on 4L home O2, multiple admissions and intubation (most recently intubated 03/16/2025), HFpEF 55-60% 09/2024, s/p CABG, AFib, hypertension, hyperlipidemia presents to the Emergency Department [facility] with complaints of lethargy, increased cough, and shortness of breath. Patient will be admitted to the ICU for management of COPD exacerbation. NEURO Acute metabolic encephalopathy DDx: Hypercarbia from COPD exacerbation, stroke Dx: GCS 5 on admission Rx: Treat underlying metabolic acidosis RRX: Monitor for response to treatment. If no improvement to consider alternative etiologies CVS CAD s/p CABG Patient does not appear to be on ASA at home. Will discuss with him risks vs benefits once he is awake Paroxysmal atrial fibrillation Dx: Atrial fibrillation not seen on this admission Rx: Continue telemetry monitoring, maintain potassium greater than 4 and magnesium greater than 2. To discuss anticoagulation with patient Primary hypertension Rx : Hydralazine 10mg IV q 4 hrly RRx: to resume oral medication once patient awake Chronic diastolic heart failure preserved ejection fraction [EF 55-60%] Rx: Daily weight, 1500 cc/day fluid restriction, will have to start GDMT at some point PULM Acute on chronic respiratory failure with hypoxia and hypercarbia secondary to COPD exacerbation Respiratory Acidosis DDx: Smoking, respiratory infection, lack of home oxygen Dx: pH 7.2, pCO2 126 Rx: Continue with BiPAP. to try to wake up patient once more alert. Levofloxacin 750 Mg IV daily started on [04/13?. Methylprednisone 60 Mg IV twice daily GI/Hep No acute problems RENAL No acute Problems HEME/ONC Thrombocytopenia DDx: secondary to chronic disease Dx: Plt 95 Rx: Monitor CBC and for signs of bleeding ENDO HLD Rx: To resume medication once patient awake ID Community aquired pneumonia Dx: Left base consolidation seen on chest x-ray Rx: Started on levofloxacin 750 Mg IV daily on [04/02/2019? MSK/DERM Possible scabies DDx: insect bites, topical dermatitis Dx: Patient was previously treated for scabies 3 weeks ago, however he was discharged back to the same environment that was not disinfected. Rx: Permethrin topical. Contact precautions. ICU Health maintenance: Dispo: Admit to ICU for COPD exacerbation Diet: NPO DVT ppx: Enoxaparin 40mg SC daily GI ppx: None IV lines: 2 pIV Central line: No Arterial line: No Yoder: Yes (started 04/13/25 - Code status: FULL CODE Plan of care discussed with Attending Dr. Rachael Alberto MD PGY 1 Disclaimer: This note was dictated by speech recognition. Minor errors in programmer developer may be present due to voice recognition software. Attending Provider Attestation/Addendum Patient seen and examined with the above resident, Toro Alberto MD. I agree with the findings, assessment, and plan of care as documented except for any differences below. Patient well known to hospital staff with 9 admissions requiring intubation frequently. Overlap of OHS/ GUICHO/ COPD and CHF. Patient obtunded and difficult to ventilate. At borderline pH to maintain on NIPPV. We were able to adapt C-collar for opening his upper airway and adjustments made to Bipap with gradual improvement in mentation and normalization of his pCO2. Patient with component of metabolic alkalosis as well that is beyond compensation for his respiratory acidosis. Will hold diuretics for now. May need diamox in the future but for now need to optimize his ventilation and resolve metabolic encephalopathy due to CO2 narcosis. Patient with gradual improvement through the day and able to take break this evening and tolerate PO meal. Retsart Bipap overnight. Will monitor closely overnight for repeat worsening of mentation and ensure he continues to not decompesate with need for intubation. Total critical care time: I personally spent 40 minutes for frequent adjustments in airway management and NIPPV, directing plan of care thoughout the day, and coordination of care with other specialists. This is exclusive of time spent teaching housestaff or performing any separate billable procedures. Patient remains at significant risk for further morbidity and mortality warranting close monitoring and care only available in the ICU. Critical care services required for acute metabolic encephalopathy, acute on chronic hypercapnic respiratory failure, decompensated OHS/ GUICHO overlap syndrome.
[2025-04-13] MEDS: cefTRIAXone/D5w 1gm IV premix 1 GM/50 ML BAG IV (11:24)
[2025-04-13] MEDS: AZITHROMYCIN INJ 500 MG in SODIUM CHLORIDE 0.9% 250 ML 250 ML 250 MG IV (11:31)
[2025-04-13 11:54] LABS: Base Excess 14 (-3-3); HCO3 47 mEq/L (20-26); Inspired Oxygen, FIO2 65 %; O2 Saturation 95 % (91-98); PCO2 114 mmHg (32.0-48.0); PO2 88 mmHg (83-108); pH, Arterial 7.22 (7.35-7.45)
[2025-04-13 11:55] LABS: Allen Test Performed/OK; Puncture Site Left Radial
--- NOTE | 2025-04-13 12:06 | PC.CC ---
ASW, Frances was attempting to complete initial assessment. Patient was not alert as he was asleep. It was reported by JAY Trujillo concerns of self-neglect on behalf of the patient. It was reported by JAY Trujillo that patient was BIBA from home and that a roommate called 911 as patient was experiencing shortness of breathe. Patient presented to the hospital full of feces and urine. It is to be noted that patient's feet are covered in what appears to be dirt. Per Rn, the patient has not been compliant with his treatment for COPD. ASW filed an APS report with Sobia Sahu at 12:03pm and faxed report to 12:15pm.
[2025-04-13] MEDS: ALBUTEROL/IPRATROPIUM (Duoneb) RT SOL 3 ML NEBU INH ×2 (12:07→18:30)
[2025-04-13 15:29] LABS: Base Excess 16 (-3-3); HCO3 46 mEq/L (20-26); Inspired Oxygen, FIO2 35 %; O2 Saturation 88 % (91-98); PCO2 90 mmHg (32.0-48.0); pH, Arterial 7.32 (7.35-7.45)
[2025-04-13 15:32] LABS: Allen Test Performed/OK; PO2 54 mmHg (83-108); Puncture Site Left Radial
--- NOTE | 2025-04-13 16:21 | PC.SS ---
Patient is a 64YO male, reason for visit: ACUTE ON CHRONIC RESPIRATORY FAILURE. ?Information obtained by patient's son Daniel Lowe [phone]. Patient?s son confirmed patient's demographic information. Patient utilizes a wheelchair and walker to assist with ambulation. Patient utilizes oxygen, patient?s son unable to provide liter flow. Patient son states patient is independent with ADLs. Pharmacy: Daniel unable to provide. PCP: None. Daniel states patient will discharge home. Daniel stated he would like for patient to discharge to SNF. SS to discuss discharge plan with patient at an appropriate time. Patient is currently in the ICU and unable to communicate at this time. Next of Kin: Daryn Lowe [phone] Discharge Plan: Home-to be confirmed with patient.
[2025-04-13] MEDS: LEVOFLOXACIN/D5W 750MG IVPB 750 MG/150 ML BAG 100 MG IV (17:00)
[2025-04-13] MEDS: NICOTINE PATCH 21 MG/24 HR PATCH.TD24 TOP (18:18)
[2025-04-13] MEDS: THIAMINE INJ 200 MG in SODIUM CHLORIDE 0.9% 50 ML 102 MG IV (18:19)
[2025-04-13] MEDS: PERMETHRIN CR 5% 60 GM TUBE TOP (19:10)
[2025-04-13 19:11] LABS: Amphetamine/Methamp Scrn,U Negative (Negative); Barbiturate Screen,Urine Negative (Negative); Benzodiazepines Screen,Urine Negative (Negative); Benzoylecgonine Screen, Ur Negative (Negative); Fentanyl Screen,Urine Negative (Negative); Opiate Screen,Urine Negative (Negative); THC Screen,Urine Negative (Negative)
[2025-04-13] MEDS: ENOXAPARIN SOD INJ 40 MG/0.4 ML SYRINGE SC (19:25)
[2025-04-13] MEDS: FOLIC ACID 1 MG TABLET PO (21:49)
[2025-04-14] VITALS (32 sets, daily range): BP systolic 133–164; BP diastolic 53–78; PULSE 68–97; RESP 15–53; TEMP 36.1–37.2; O2SAT 78–99; BMI 34.8; BMI 34.7
[2025-04-14] MEDS: ALBUTEROL/IPRATROPIUM (Duoneb) RT SOL 3 ML NEBU INH ×4 (02:20→18:41)
--- NOTE | 2025-04-14 04:39 | PC.RT ---
abg/bipap refusal pt refuses bipap tonight and AM abg. continues to demand a dinner tray . rn made aware as well
--- NOTE | 2025-04-14 04:55 | PC.NURSE ---
PT IS A/O, REFUSING BIPAP, AND ABG DRAW, RT AND RN HAVE EDUCATED PT ON BIPAP USE AND ABG, HOWEVER PT STILL REFUSES.
--- NOTE | 2025-04-14 07:47 | PD.RESPRO ---
Documentation for date of: 04/14/25 Subjective Subjective Interval history: Patient somnolent and nonresponsive at the time of admission, history obtained from chart review. Apparently patient is 64 year old male with past medical history significant for COPD on 4L home O2, multiple admissions and intubation (most recently intubated 03/16/2025), HFpEF 55-60% 09/2024, s/p CABG, AFib, hypertension, hyperlipidemia presents to the Emergency Department [facility] with complaints of lethargy, increased cough, and shortness of breath. Per EMS, the patient's roommate called 911 because the patient was having episodes of going in and out of sleep, not acting appropriately . Patient himself has no complaints other than increased cough with green phlegm and chronic shortness of breath. Per EMS, patient was satting in the 70's and at 6L/min the patient was satting at 93%. No other complaints reported at this time. Patient remained unresponsive l upon arrival to the ED and BiPAP was started. ED course: BP 176/78, pulse 96, RR 17, temp 97.9 F, SpO2 96% on BiPAP. Labs showed pH 7.3, PCO2 126, pO2 7 6.3. Chest x-ray showed mild left base consolidation. In the ED patient received DuoNeb x 1, 125 Mg IV x 1, magnesium sulfate 2 g IV x 1, ceftriaxone 1 g IV x 1 and azithromycin 500 Mg IV x 1. Patient will be admitted to the ICU for management of COPD exacerbation 04/14/2025: Yesterday around 5 PM. Patient woke up and was taken off of BiPAP, plan was for him to have BiPAP overnight, however he refused. This morning patient A&O x 3 and denies any shortness of breath, chest pain/pressure, dizziness or headache. He said the last thing he remembers before waking up in the hospital was trying to fix his oxygen tanks at home after the line got snagged on the his wheelchair. He is agreeable for BiPAP during the day. This morning he refused a.m. labs, will attempt again later. Urine toxicology negative for all tested drugs. Patient currently clinically stable and fit for downgrade to the medical floor. Exam Vital Signs Temp Pulse Resp BP Pulse Ox O2 Del Method O2 Flow Rate 98.4 F 78 18 156/78 H 99 BiPAP 4 04/14/25 04:01 04/14/25 06:19 04/14/25 06:19 04/14/25 06:00 04/14/25 06:19 04/13/25 13:00 04/14/25 06:19 FiO2 35 04/13/25 14:45 Narrative Exam Constitutional Alert, oriented x 3 and comfortable. Elderly male HEENT Vision grossly intact. Patent nares. Trachea midline Respiratory Chest normal on inspection and reduced air entry in all lung hein. No wheeze or crepitations. Cardiovascular S1 and S2 audible, RRR. No murmurs carotid bruit. No gross JVD. Abdominal Soft,obese and non tender to palpation in all quadrants. BS + Genitourinary No bladder tenderness, no flank pain. Normal to palpation Musculoskeletal Extremities tone within normal limits. No LE edema. Neurological CN II - XII grossly intact. Extremity motor and sensation grossly intact. Skin Warm, dry and intact. Chronic hyperpigmentation on shins multiple circular lesions throughout body, including skin folds. Psychiatric Patient has good affect, is cooperative Objective Labs 04/16/25 05:08 04/16/25 05:08 Labs: Laboratory Results - last 24 hr 04/13/25 04/13/25 04/13/25 07:42 08:19 11:50 WBC 6.6 RBC 4.42 L Hgb 13.6 Hct 44.9 MCV 102 H MCH 30.8 MCHC 30.3 L RDW Std Deviation 56.9 H Plt Count 95 L D Neut % (Auto) 73 Lymph % (Auto) 15 [place] % (Auto) 8 Eos % (Auto) 2 Baso % (Auto) 1 Neut # (Auto) 4.8 Lymph # (Auto) 1.0 [place] # (Auto) 0.5 Eos # (Auto) 0.2 Baso # (Auto) 0.0 Immature Gran # (Auto) 0.06 H Absolute Nucleated RBC 0.00 Immature Gran % 1 H Nucleated RBC % 0 ESR 66 H PT 11.1 INR 1.0 APTT 24.8 D-Dimer 1100 H Puncture Site Right Radial Left Radial ABG pH 7.20 L 7.22 L ABG pCO2 126 H* 114 H* D ABG pO2 71 L 88 ABG HCO3 49 H 47 H ABG O2 Saturation 92 95 ABG Base Excess 16 H 14 H Oxygen Liter Flow 6 FiO2 65 Sodium 142 Potassium 4.4 Chloride 96 L Carbon Dioxide > 40.0 H Anion Gap 6 L BUN 14 Creatinine 0.8 Estim Creat Clear Calc 121.3 eGFR > 60 BUN/Creatinine Ratio 18 Glucose 117 H Calculated Osmolality 284 Lactic Acid 0.6 Calcium 9.0 Corrected Calcium 9.0 Magnesium 2.0 Total Bilirubin 0.4 Direct Bilirubin 0.2 AST 16 ALT 16 Alkaline Phosphatase 48 Troponin I < 0.020 C-Reactive Prot, Quant 6.3 H B-Natriuretic Peptide 70 Total Protein 6.7 Albumin 4.3 Globulin 2.4 Albumin/Globulin Ratio 1.8 Procalcitonin 0.14 TSH 0.49 L Free T4 1.18 Urine Opiates Screen Urine Fentanyl Screen Ur Barbiturates Screen U Amphetamin/Meth Scrn U Benzodiazepines Scrn U Cocaine Metab Screen U Marijuana (THC) Screen 04/13/25 04/13/25 15:18 16:30 WBC RBC Hgb Hct MCV MCH MCHC RDW Std Deviation Plt Count Neut % (Auto) Lymph % (Auto) [place] % (Auto) Eos % (Auto) Baso % (Auto) Neut # (Auto) Lymph # (Auto) [place] # (Auto) Eos # (Auto) Baso # (Auto) Immature Gran # (Auto) Absolute Nucleated RBC Immature Gran % Nucleated RBC % ESR PT INR APTT D-Dimer Puncture Site Left Radial ABG pH 7.32 L D ABG pCO2 90 H* D ABG pO2 54 L* D ABG HCO3 46 H ABG O2 Saturation 88 L ABG Base Excess 16 H Oxygen Liter Flow FiO2 35 Sodium Potassium Chloride Carbon Dioxide Anion Gap BUN Creatinine Estim Creat Clear Calc eGFR BUN/Creatinine Ratio Glucose Calculated Osmolality Lactic Acid Calcium Corrected Calcium Magnesium Total Bilirubin Direct Bilirubin AST ALT Alkaline Phosphatase Troponin I C-Reactive Prot, Quant B-Natriuretic Peptide Total Protein Albumin Globulin Albumin/Globulin Ratio Procalcitonin TSH Free T4 Urine Opiates Screen Negative Urine Fentanyl Screen Negative Ur Barbiturates Screen Negative U Amphetamin/Meth Scrn Negative U Benzodiazepines Scrn Negative U Cocaine Metab Screen Negative U Marijuana (THC) Screen Negative ABG Interpretation ABG results: 04/13/25 04/13/25 04/13/25 07:42 11:50 15:18 ABG pH 7.20 L 7.22 L 7.32 L D ABG pCO2 126 H* 114 H* D 90 H* D ABG pO2 71 L 88 54 L* D ABG HCO3 49 H 47 H 46 H ABG O2 Saturation 92 95 88 L ABG Base Excess 16 H 14 H 16 H Quality Measures Quality Measures none Assessment & Plan Assessment Current Active Medications: Generic Name Dose Route Start Last Admin Trade Name Freq PRN Reason Stop Dose Admin Acetaminophen 650 mg 04/13/25 10:17 Acetaminophen 325 Mg Tablet PO 05/13/25 10:16 Q6H PRN Fever >100.3 or pain Albuterol/Ipratropium 3 ml 04/13/25 13:00 04/14/25 06:12 Albuterol/Ipratropium (Duoneb) Rt Marita 3 Ml Nebu INH 05/13/25 12:59 3 ml Q6HRRT FREDIS Administration Enoxaparin Sodium 40 mg 04/13/25 19:15 04/13/25 19:25 Enoxaparin Sod Inj 40 Mg/0.4 Ml Syringe SC 04/27/25 19:14 40 mg QDAY FREDIS Administration Folic Acid 1 mg 04/13/25 21:00 04/13/25 21:49 Folic Acid 1 Mg Tablet PO 04/18/25 20:59 1 mg BID FREDIS Administration Hydralazine HCl 10 mg 04/13/25 13:54 Hydralazine Inj 20 Mg/Ml Vial IVP 05/13/25 13:53 Q4H PRN SBP >170 Dexmedetomidine/Sodium Chloride 400 mcg in 100 mls @ 5.67 mls/hr 04/13/25 10:19 Precedex Ivpb IV 05/13/25 10:18 .[id number] PRN Per PROTOCOL Protocol 0.2 MCG/KG/HR Levofloxacin/Dextrose 750 mg in 150 mls @ 100 mls/hr 04/13/25 13:15 04/13/25 17:00 Levaquin Ivpb IV 04/20/25 13:14 100 mls/hr QDAY FREDIS Administration Thiamine HCl 200 mg/ Sodium 52 mls @ 102 mls/hr 04/13/25 18:00 04/13/25 18:19 Chloride IV 05/13/25 17:59 102 mls/hr DAILY FREDIS Administration Lorazepam 0.5 mg 04/13/25 17:58 Lorazepam 0.5 Mg Tablet PO 04/18/25 17:57 Q4HR PRN CIWA Score 2-6 Lorazepam 2 mg 04/13/25 17:58 Lorazepam 0.5 Mg Tablet PO 04/18/25 17:57 Q4HR PRN CIWA SCORE 12-15 Lorazepam 1 mg 04/13/25 17:58 Lorazepam 0.5 Mg Tablet PO 04/18/25 17:57 Q4HR PRN CIWA SCORE 7-11 Lorazepam 1 mg 04/13/25 17:58 Lorazepam 2 Mg/Ml Vial IV 04/18/25 17:57 Q2HR PRN CIWA SCORE 16-19 Lorazepam 2 mg 04/13/25 17:58 Lorazepam 2 Mg/Ml Vial IV 04/18/25 17:57 Q2HR PRN CIWA SCORE 20-25 Lorazepam 2 mg 04/13/25 17:58 Lorazepam 2 Mg/Ml Vial IVP X1 PRN Breakthrough Agitation Methylprednisolone Sodium Succinate 60 mg 04/14/25 09:00 Methylprednisolone Sod Succ 40 Mg Vial IVP 04/21/25 08:59 BID FREDIS Nicotine 21 mg 04/13/25 18:00 04/13/25 18:18 Nicotine Patch 21 Mg/24 Hr Patch.Td24 TOP 05/13/25 17:59 21 mg QDAY FREDIS Administration Ondansetron HCl 4 mg 04/13/25 10:17 Ondansetron Inj 2 Mg/Ml Inj 2 Ml IVP 05/13/25 10:16 Q6H PRN NAUSEA OR VOMITING Protocol Plan Apparently patient is 64 year old male with past medical history significant for COPD on 4L home O2, multiple admissions and intubation (most recently intubated 03/16/2025), HFpEF 55-60% 09/2024, s/p CABG, AFib, hypertension, hyperlipidemia presents to the Emergency Department [facility] with complaints of lethargy, increased cough, and shortness of breath. Patient will be admitted to the ICU for management of COPD exacerbation. NEURO Acute metabolic encephalopathy - resolved DDx: Hypercarbia from COPD exacerbation, stroke Dx: GCS 5 on admission. Currently GCS 15 CVS CAD s/p CABG Patient does not appear to be on ASA at home. Rx: To discuss with patient risks vs benefits of starting ASA Paroxysmal atrial fibrillation Dx: Atrial fibrillation not seen on this admission Rx: Continue telemetry monitoring, maintain potassium greater than 4 and magnesium greater than 2. To discuss anticoagulation with patient RRx; Pending AM labs Primary hypertension Rx : Hydralazine 10mg IV q 4 hrly RRx: to resume oral antihypertensives today Chronic diastolic heart failure preserved ejection fraction [EF 55-60%] Rx: Daily weight, 1500 cc/day fluid restriction. PULM Acute on chronic respiratory failure with hypoxia and hypercarbia secondary to COPD exacerbation - resolving Respiratory Acidosis DDx: Smoking, respiratory infection, lack of home oxygen Dx: pH 7.2, pCO2 126 Rx: Levofloxacin 750 Mg IV daily started on [04/13?. Methylprednisone 60 Mg IV twice daily RRx: For BiPaP during the day when patient is asleep GI/Hep No acute problems RENAL No acute Problems HEME/ONC Thrombocytopenia DDx: secondary to chronic disease Dx: Plt 95 Rx: Monitor CBC and for signs of bleeding ENDO HLD Rx: Started on Atorvastatin 80mg po HS ID Community aquired pneumonia Dx: Left base consolidation seen on chest x-ray Rx: Continue levofloxacin 750 Mg IV daily on [04/02/2019? MSK/DERM Possible scabies DDx: insect bites, topical dermatitis Dx: Patient was previously treated for scabies 3 weeks ago, however he was discharged back to the same environment that was not disinfected. Rx: Permethrin topical applied on [04/13- . Contact precautions. ICU Health maintenance: Dispo: Clinically stable for downgrade to the floor Diet: Cardiac diet, 1500cc fluid restrict DVT ppx: Enoxaparin 40mg SC daily GI ppx: None IV lines: 2 pIV Central line: No Arterial line: No Yoder: Yes (started 04/13/25 - Code status: FULL CODE Plan of care discussed with Attending Dr. Rachael Alberto MD PGY 1 Disclaimer: This note was dictated by speech recognition. Minor errors in hardware technician may be present due to voice recognition software. Attending Provider Attestation/Addendum Patient seen and examined with above resident, Toro Alberto MD. I agree with the findings, assessment, and plan of care as documented except for any differences below. Patient with significant improvement after noninvasive positive pressure ventilation with ability to tolerate p.o. yesterday evening. Tolerated continued BiPAP overnight with appropriate settings. pH did not normalize with his chronic CO2 retention. Will give low-dose Diamox and hold Lasix at this point as to avoid further metabolic alkalosis secondary to contraction volume status though he patient does need to be optimized for his heart failure history. Patient will likely need BiPAP support at home and he reports he does have a CPAP machine which we will further investigate with his [employer] company to determine the appropriate settings so that when he is discharged this will help both from his COPD exacerbation perspective as well as OHS/GUICHO which is likely the precipitant of his acute hospitalization at this time. Patient c-collar was removed as easily unable to adequately maintain open airway with current BiPAP settings. Patient is tolerating p.o. diet well now and is gradually being resumed on his home medication regimen. Patient will be transferred to medicine [facility] for ongoing management prior to discharge in coming days. Total critical care time: I personally spent 35 minutes for review of physiologic parameters, directing plan of care throughout the day, coordination of care with other specialist, and counseling patient at bedside. This is exclusive of time spent teaching housestaff or performing any separate billable procedures. Patient remains at significant risk for further morbidity and mortality warranting close monitoring and care only available in the ICU. Critical care services required for acute on chronic hypercapnic respiratory failure, congestive heart failure, COPD, decompensated GUICHO/OHS.
[2025-04-14] MEDS: THIAMINE INJ 200 MG in SODIUM CHLORIDE 0.9% 50 ML 102 MG IV (08:04)
[2025-04-14] MEDS: FOLIC ACID 1 MG TABLET PO ×2 (08:04→22:18)
[2025-04-14] MEDS: LEVOFLOXACIN/D5W 750MG IVPB 750 MG/150 ML BAG 100 MG IV (08:05)
[2025-04-14] MEDS: ENOXAPARIN SOD INJ 40 MG/0.4 ML SYRINGE SC (08:32)
--- NOTE | 2025-04-14 11:39 | ESPR_ITS ---
<Statement entered by Vernon Sanderson MD - 04/14/25 17:46> I discussed with and supervised the pr internship physician involved in the care of this patient. Patient assessment and plan was discussed with entire medicine team, including my attending. I agree with the assessment and plan as documented by pr internship doctor. Patient care was discussed with my attending physician Dr. Gonzales Sanderson, PGY-2 Documentation for date of: 04/14/25 Subjective Subjective Interval history: This is a 60-year-old male with PMHx of severe COPD on 4 L home oxygen, known to us for recurrent admission for COPD exacerbation after requiring ICU admission for intubation, HFpEF EF 55 to 60%, HTN, HLD, presented to the ED with acute metabolic encephalopathy 2/2 hypercapnic respiratory failure. He had a low GCS on admission, ABG showed pH 7.2 and PCO2 126 and PO2 71. He was immediately started on BiPAP, and admitted to ICU for further management. He did not require intubation. This morning, encephalopathy appeared to have resolved, he was again at baseline, ANO x 4. ABG showed pH 7.32, pCO2 90, PO254. He remained hemodynamically stable, subsequently downgraded to floors. On evaluation, he was on 3 L NC, satting low 90s. Denied chest pain, shortness of breath, fever, dizziness, lightheadedness, abdominal pain, nausea or vomiting, or urinary symptoms. BP 164/76, HR 94, RR 18. Remained afebrile, no leukocytosis. Hgb 11.5 around baseline. Phosphorus of 1.9 which was repleted. CO2 was greater than 40, chloride 96, CRP 6.3, TSH 0.49, free T4 1.18, remainder CHEM panel WNL. Exam Vital Signs Temp Pulse Resp BP Pulse Ox O2 Del Method O2 Flow Rate 98.4 F 92 53 H 146/61 H 78 L Nasal Cannula 4 04/14/25 04:01 04/14/25 08:20 04/14/25 08:20 04/14/25 08:03 04/14/25 08:20 04/14/25 08:03 04/14/25 08:03 FiO2 35 04/14/25 10:14 Narrative Exam GENERAL * Obese male, awake and alert, on 3 to NC, satting well, NAD HEENT * NCAT.?[place]. Oral mucosa is moist. Patent Nares NECK * Supple, nontender, no thyromegaly, no meningismus, no JVD, no step offs CHEST * RRR, mild systolic murmur, no rubs or gallops. * CTAB, no w/r/r. Symmetrical chest rise. No intercostal subcostal retraction * Atraumatic, nontender, no crepitus, symmetrical expansion. ABDOMEN * Soft, flat, nontender. No guarding/rebound tenderness/masses. * Bowel sounds presents EXTREMITIES * 1+ bilateral lower extremity pitting edema. SKIN * Diffuse, small, round vesicular/pustular, erythematous rash involving multiple body parts including face, neck, arms and lower extremity. NEUROMUSCULAR * Moves all 4 extremities well, with full ROM and good CSM. * No focal neurologic deficits. PSYCHIATRY * Normal mood and affect, cooperative, no SI or HI or hallucinations. Objective Labs 04/15/25 05:32 04/15/25 05:32 Labs: Laboratory Results - last 24 hr 04/13/25 04/13/25 04/13/25 11:50 15:18 16:30 Puncture Site Left Radial Left Radial ABG pH 7.22 L 7.32 L D ABG pCO2 114 H* D 90 H* D ABG pO2 88 54 L* D ABG HCO3 47 H 46 H ABG O2 Saturation 95 88 L ABG Base Excess 14 H 16 H FiO2 65 35 Urine Opiates Screen Negative Urine Fentanyl Screen Negative Ur Barbiturates Screen Negative U Amphetamin/Meth Scrn Negative U Benzodiazepines Scrn Negative U Cocaine Metab Screen Negative U Marijuana (THC) Screen Negative ABG Interpretation ABG results: 04/13/25 04/13/25 04/13/25 07:42 11:50 15:18 ABG pH 7.20 L 7.22 L 7.32 L D ABG pCO2 126 H* 114 H* D 90 H* D ABG pO2 71 L 88 54 L* D ABG HCO3 49 H 47 H 46 H ABG O2 Saturation 92 95 88 L ABG Base Excess 16 H 14 H 16 H Quality Measures Quality Measures none Assessment & Plan Assessment Current Active Medications: Generic Name Dose Route Start Last Admin Trade Name Freq PRN Reason Stop Dose Admin Acetaminophen 650 mg 04/13/25 10:17 Acetaminophen 325 Mg Tablet PO 05/13/25 10:16 Q6H PRN Fever >100.3 or pain Albuterol/Ipratropium 3 ml 04/13/25 13:00 04/14/25 06:12 Albuterol/Ipratropium (Duoneb) Rt Marita 3 Ml Nebu INH 05/13/25 12:59 3 ml Q6HRRT FREDIS Administration Atorvastatin Calcium 80 mg 04/14/25 21:00 Atorvastatin Calcium 20 Mg Tablet PO 05/14/25 20:59 HS FREDIS Enoxaparin Sodium 40 mg 04/13/25 19:15 04/14/25 08:32 Enoxaparin Sod Inj 40 Mg/0.4 Ml Syringe SC 04/27/25 19:14 40 mg QDAY FREDIS Administration Folic Acid 1 mg 04/13/25 21:00 04/14/25 08:04 Folic Acid 1 Mg Tablet PO 04/18/25 20:59 1 mg BID FREDIS Administration Hydralazine HCl 10 mg 04/13/25 13:54 Hydralazine Inj 20 Mg/Ml Vial IVP 05/13/25 13:53 Q4H PRN SBP >170 Levofloxacin/Dextrose 750 mg in 150 mls @ 100 mls/hr 04/13/25 13:15 04/14/25 08:05 Levaquin Ivpb IV 04/20/25 13:14 100 mls/hr QDAY FREDIS Administration Thiamine HCl 200 mg/ Sodium 52 mls @ 102 mls/hr 04/13/25 18:00 04/14/25 08:04 Chloride IV 05/13/25 17:59 102 mls/hr DAILY FREDIS Administration Lorazepam 0.5 mg 04/13/25 17:58 Lorazepam 0.5 Mg Tablet PO 04/18/25 17:57 Q4HR PRN CIWA Score 2-6 Lorazepam 2 mg 04/13/25 17:58 Lorazepam 0.5 Mg Tablet PO 04/18/25 17:57 Q4HR PRN CIWA SCORE 12-15 Lorazepam 1 mg 04/13/25 17:58 Lorazepam 0.5 Mg Tablet PO 04/18/25 17:57 Q4HR PRN CIWA SCORE 7-11 Lorazepam 1 mg 04/13/25 17:58 Lorazepam 2 Mg/Ml Vial IV 04/18/25 17:57 Q2HR PRN CIWA SCORE 16-19 Lorazepam 2 mg 04/13/25 17:58 Lorazepam 2 Mg/Ml Vial IV 04/18/25 17:57 Q2HR PRN CIWA SCORE 20-25 Lorazepam 2 mg 04/13/25 17:58 Lorazepam 2 Mg/Ml Vial IVP X1 PRN Breakthrough Agitation Methylprednisolone Sodium Succinate 60 mg 04/14/25 09:00 04/14/25 08:04 Methylprednisolone Sod Succ 40 Mg Vial IVP 04/21/25 08:59 60 mg BID FREDIS Administration Nicotine 21 mg 04/13/25 18:00 04/14/25 08:35 Nicotine Patch 21 Mg/24 Hr Patch.Td24 TOP 05/13/25 17:59 Not Given QDAY FREDIS Ondansetron HCl 4 mg 04/13/25 10:17 Ondansetron Inj 2 Mg/Ml Inj 2 Ml IVP 05/13/25 10:16 Q6H PRN NAUSEA OR VOMITING Protocol Plan This is a 60-year-old male with PMHx of severe COPD on 4 L home oxygen, known to us for recurrent admission for COPD exacerbation after requiring ICU admission for intubation, HFpEF EF 55 to 60%, HTN, HLD, admitted to ICU for acute metabolic encephalopathy 2/2 hypercapnic respiratory failure, which improved with BiPAP, did not require intubation. Repeat ABG showed improvement in pCO2, and pH. Acute metabolic encephalopathy (resolved) Acute/chronic hypoxic, hypercapnic respiratory failure Acute/chronic respiratory acidosis COPD exacerbation Compensated primary respiratory acidosis Chronic tobacco smoker Encephalopathic on admission with ABG showing pH 7.2 and PCO2 126 and PO2 71. He was immediately started on BiPAP, and admitted to ICU for further management. He did not require intubation. This morning, encephalopathy appeared to have resolved, he was again at baseline, ANO x 4. ABG showed pH 7.32, pCO2 90, PO254, bicarb >40. Likely cause is BiPAP noncompliance in addition to significant left base pneumonia. He was given a dose of DIAMOX to reduce Severity metabolic alkalosis and stimulate respiratory drive. Remains afebrile, no leukocytosis. ? Daily NICOTINE patch ? Continue DuoNebs q.6h. scheduled ? Continue BiPAP HS or PRN. ? Continue METHYLPREDNISOLONE 40 mg BID (04/14 to present) ? Continue AZITHROMYCIN (04/13 to present) ? Continue CEFTRIAXONE (04/13 to present) ? Pending cultures, MRSA ? Pending physical therapy HFpEF EF 55-60% from 09/2024 Appears slightly volume overload with bilateral extremity edema, lung sounds are clear. BNP 70 on admission. ? Continue home LASIX 40 mg p.o. daily ? Strict MEAGAN's HTN ? Continue home LISINOPRIL 5 mg HLD 02/02/25. Lipid panel showed TG 78, cholesterol 220, LDL 151, HDL 53. ? Continue home ATORVASTATIN 20 mg daily Concern for scabies Physical exam showed diffuse rash involving multiple body parts, as described in physical exam above. He completed a dose of PERMETHRIN a week prior to admission for suspected scabies. ? Received another dose of PERMETHRIN on admission. Alcohol use disorder ? On CIWA ? Daily THIAMINE Health maintenance Diet: Cardiac GI prophylaxis: Not indicated DVT prophylaxis: LOVENOX Antibiotics: CEFTRIAXONE, AZITHROMYCIN CODE STATUS: Full code Disposition: Treating [facility] Case was discussed with attending physician and senior resident. Mihir Strong DO PGYI Attending Provider Attestation/Addendum [place], Kristina Rolon DO, attest that I was physically present for the malone portions of the service and evaluated the patient with the resident and I reviewed and discussed the case with the resident and agree with the resident's findings and plans of care as documented above Patient seen and evaluated this AM. He states that he is doing fine. Patient has been downgraded from ICU and admits that he has not been using his BiPap at home at all. Patient admits to increased cough and sputum. No wheezing noted on exam. Patient counselled at length regarding compliance with BiPap to avoid frequent readmissions. He states he has cut down his smoking to 1ppd rather than 2.5- 3ppd. He also endorses cessation of drug use. He is noted to have scattered rash on his face, arms, torso, chest and legs with crusting. Patient had previously been treated for scabies on previous admission and given another dose of permethrin on this admission. He remains on contact precautions. Will decrease steroids at this time and continue to titrate O2 as tolerated. Patient states he uses 4L/NC at home which he is currently on.
[2025-04-14 12:14] LABS: Basophils % (Auto) 0 % (0-2.5); Eosinophils % (Auto) 0 % (0-10); Hematocrit 37.6 % (41.0-53.0); Hemoglobin 11.5 g/dL (13.5-16.0); Immature Granulocytes % (Auto) 1 % (0-0); Immature Granulocytes Auto 0.05 Thou/mm3 (0.00-0.00); Lymphocytes # (Auto) 0.3 Thou/mm3 (1.0-4.8); Lymphocytes % (Auto) 4 % (10-50); Mean Corpuscular HGB Conc 30.6 g/dl (31.0-37.0); Mean Corpuscular Hemoglobin 30.7 pg (25.0-35.0); Mean Corpuscular Volume 100 fL (80-100); Monocytes # (Auto) 0.3 Thou/mm3 (0.0-0.8); Monocytes % (Auto) 4 % (0-12); Neutrophils # (Auto) 7.3 Thou/mm3 (1.8-7.7); Neutrophils % (Auto) 91 % (37-80); Nucleated Red Blood Cell % 0 /100 WBC (0); Platelet Count 93 Thou/mm3 (140-440); RDW Standard Deviation 55.1 fL (35.1-43.9); Red Blood Count 3.75 Miln/mm3 (4.50-5.90)
[2025-04-14 13:15] LABS: Phosphorous 1.9 mg/dL (2.4-5.1)
[2025-04-14] MEDS: NAPH,KPH MBDB 1 PACKET (1.5 GM) PO (15:00)
[2025-04-14] MEDS: AZITHROMYCIN 250 MG TABLET PO (16:03)
[2025-04-14] MEDS: Furosemide 40 MG TABLET PO (16:04)
[2025-04-14] MEDS: cefTRIAXone/D5w 1gm IV premix 1 GM/50 ML BAG IV (16:04)
[2025-04-14] MEDS: Lisinopril 2.5 MG TABLET 5 MG PO (16:04)
[2025-04-14] MEDS: ATORVASTATIN CALCIUM 20 MG TABLET PO (22:18)
--- NOTE | 2025-04-14 22:25 | PC.NURSE ---
off bipap-refused to reapply.
--- NOTE | 2025-04-14 23:55 | PC.NURSE ---
83% O2 sat on 4L/min/nc- Increased to 5L/min/nc.
[2025-04-15] VITALS (15 sets, daily range): BP systolic 126–156; BP diastolic 61–92; PULSE 64–96; RESP 7–36; TEMP 36.3–37; O2SAT 92–99
[2025-04-15] MEDS: ALBUTEROL/IPRATROPIUM (Duoneb) RT SOL 3 ML NEBU INH ×4 (01:06→18:38)
--- NOTE | 2025-04-15 02:02 | PC.NURSE ---
84% O2 sat on Bipap with 35% fiO2- Increased to 40% fiO2.
--- NOTE | 2025-04-15 02:14 | PC.NURSE ---
87% O2 sat on Bipap with 40% fiO2- Increased to 45% fiO2.
--- NOTE | 2025-04-15 02:46 | PC.NURSE ---
85% O2 sat on Bipap with 45% fiO2- Notified RT. Increased to 50% fiO2.
--- NOTE | 2025-04-15 04:39 | PC.NURSE ---
re med rec- Unable to obtain at this time, pt asleep on bipap. No family at bedside.
[2025-04-15 05:53] LABS: Basophils % (Auto) 0 % (0-2.5); Eosinophils % (Auto) 0 % (0-10); Hemoglobin 10.8 g/dL (13.5-16.0); Immature Granulocytes % (Auto) 1 % (0-0); Immature Granulocytes Auto 0.03 Thou/mm3 (0.00-0.00); Lymphocytes # (Auto) 0.3 Thou/mm3 (1.0-4.8); Lymphocytes % (Auto) 5 % (10-50); Mean Corpuscular HGB Conc 29.2 g/dl (31.0-37.0); Mean Corpuscular Hemoglobin 30.4 pg (25.0-35.0); Mean Corpuscular Volume 104 fL (80-100); Monocytes # (Auto) 0.2 Thou/mm3 (0.0-0.8); Monocytes % (Auto) 3 % (0-12); Neutrophils # (Auto) 5.4 Thou/mm3 (1.8-7.7); Neutrophils % (Auto) 92 % (37-80); Nucleated Red Blood Cell % 0 /100 WBC (0); Platelet Count 105 Thou/mm3 (140-440); RDW Standard Deviation 57.8 fL (35.1-43.9); Red Blood Count 3.55 Miln/mm3 (4.50-5.90); White Blood Count 5.9 Thou/mm3 (3.8-10.6)
[2025-04-15 06:19] LABS: Alanine Aminotransferase 11 U/L (10-49); Albumin, Serum 3.5 gm/dL (3.4-4.8); Albumin/Globulin Ratio 1.8 (1.2-2.2); Alkaline Phosphatase 40 U/L (46-116); Anion Gap 9 (7-16); Aspartate Amino Transferase < 10 U/L (0-34); BUN/Creatinine Ratio 25 Ratio (12-20); Bilirubin,Total 0.2 mg/dL (0.3-1.2); Blood Urea Nitrogen 20 mg/dL (9-23); Calcium 8.5 mg/dL (8.3-10.6); Calcium (Corrected) 8.9 mg/dL (8.5-10.1); Carbon Dioxide > 40.0 mMol/L (20.0-31.0); Chloride 95 mMol/L (98-107); Creatinine (Component) 0.8 mg/dL (0.6-1.3); Estimated Creatinine Clearance 122.9 mL/min (>60); Globulin 1.9 gm/dL (2.3-3.5); Glucose 172 mg/dL (74-106); Magnesium 2.2 mg/dL (1.6-2.6); Osmolality,Calculated 293 (275-295); Phosphorous 3.1 mg/dL (2.4-5.1); Potassium 4.8 mMol/L (3.4-5.1); Sodium 144 mMol/L (136-145); Total Protein 5.4 gm/dL (5.7-8.2); eGFR > 60 See Note
[2025-04-15 09:07] LABS: Base Excess, Venous 20 (-3-3); O2 Saturation, Venous 51 % (96-97); PCO2, Venous 88 mmHg (36-56); PO2, Venous 27 mmHg (15-58); pH, Venous 7.36 (7.33-7.66)
--- NOTE | 2025-04-15 09:37 | PC.NURSE ---
Patient refusing all medication administration until TV volume is fixed. RN informed patient that maintenance has been made aware of the problem and will fix as soon as possible. Charge Nurse made aware and no other rooms are available to transfer patient to at this time.
[2025-04-15] MEDS: cefTRIAXone/D5w 1gm IV premix 1 GM/50 ML BAG IV (10:30)
[2025-04-15] MEDS: LEVOFLOXACIN/D5W 750MG IVPB 750 MG/150 ML BAG 100 MG IV (10:30)
[2025-04-15] MEDS: Lisinopril 2.5 MG TABLET 5 MG PO (10:32)
[2025-04-15] MEDS: FOLIC ACID 1 MG TABLET PO ×2 (10:32→20:22)
[2025-04-15] MEDS: THIAMINE INJ 200 MG in SODIUM CHLORIDE 0.9% 50 ML 102 MG IV (11:57)
--- NOTE | 2025-04-15 15:21 | PC.PT ---
Pt refused to work with PT today for the evaluation and says he will start therapy Thursday, right after breakfast.
--- NOTE | 2025-04-15 17:38 | ESPR_ITS ---
Documentation for date of: 04/15/25 Subjective Subjective Interval history: No acute overnight events. However, he refused BiPAP last night and required medical restraints. Today he was again agitated, but overall compliant and following command. Denies fever, chills, headaches, chest pain, sob, cough, GI or urinary symptoms. Vitals are relatively stable. VBG showing mild hypercapnia with pH 7.36, pCO2 88. Bicarb was greater than 40. Will continue BiPAP at night. Overall stable, patient at baseline. Will likely discharge tomorrow if remains stable. Exam Vital Signs Temp Pulse Resp BP Pulse Ox O2 Del Method O2 Flow Rate 97.3 F 72 15 142/66 H 96 Nasal Cannula 4 04/15/25 16:00 04/15/25 16:00 04/15/25 16:00 04/15/25 16:00 04/15/25 16:00 04/15/25 16:00 04/15/25 16:00 FiO2 50 04/15/25 06:26 Narrative Exam GENERAL * Obese male, awake and alert, on 3 to NC, satting well, NAD HEENT * NCAT.?NATANAEL. Oral mucosa is moist. Patent Nares NECK * Supple, nontender, no thyromegaly, no meningismus, no JVD, no step offs CHEST * RRR, mild systolic murmur, no rubs or gallops. * CTAB, no w/r/r. Symmetrical chest rise. No intercostal subcostal retraction * Atraumatic, nontender, no crepitus, symmetrical expansion. ABDOMEN * Soft, flat, nontender. No guarding/rebound tenderness/masses. * Bowel sounds presents EXTREMITIES * 1+ bilateral lower extremity pitting edema. SKIN * Diffuse, small, round vesicular/pustular, erythematous rash involving multiple body parts including face, neck, arms and lower extremity (overall improved) NEUROMUSCULAR * Moves all 4 extremities well, with full ROM and good CSM. * No focal neurologic deficits. PSYCHIATRY * Normal mood and affect, cooperative, no SI or HI or hallucinations. Objective Labs 04/16/25 05:08 04/16/25 05:08 Labs: Laboratory Results - last 24 hr 04/15/25 04/15/25 05:32 09:00 WBC 5.9 RBC 3.55 L Hgb 10.8 L Hct 37.0 L MCV 104 H MCH 30.4 MCHC 29.2 L RDW Std Deviation 57.8 H Plt Count 105 L Neut % (Auto) 92 H Lymph % (Auto) 5 L [place] % (Auto) 3 Eos % (Auto) 0 Baso % (Auto) 0 Neut # (Auto) 5.4 Lymph # (Auto) 0.3 L [place] # (Auto) 0.2 Eos # (Auto) 0.0 Baso # (Auto) 0.0 Immature Gran # (Auto) 0.03 H Absolute Nucleated RBC 0.00 Immature Gran % 1 H Nucleated RBC % 0 VBG pH 7.36 VBG pCO2 88 H VBG pO2 27 VBG O2 Sat (Osmin) 51 L VBG Base Excess 20 H Sodium 144 Potassium 4.8 Chloride 95 L Carbon Dioxide > 40.0 H Anion Gap 9 BUN 20 Creatinine 0.8 Estim Creat Clear Calc 122.9 eGFR > 60 BUN/Creatinine Ratio 25 H Glucose 172 H D Calculated Osmolality 293 Calcium 8.5 Corrected Calcium 8.9 Phosphorus 3.1 Magnesium 2.2 Total Bilirubin 0.2 L AST < 10 ALT 11 Alkaline Phosphatase 40 L Total Protein 5.4 L Albumin 3.5 D Globulin 1.9 L Albumin/Globulin Ratio 1.8 ABG Interpretation ABG results: 04/13/25 04/13/25 04/13/25 07:42 11:50 15:18 ABG pH 7.20 L 7.22 L 7.32 L D ABG pCO2 126 H* 114 H* D 90 H* D ABG pO2 71 L 88 54 L* D ABG HCO3 49 H 47 H 46 H ABG O2 Saturation 92 95 88 L ABG Base Excess 16 H 14 H 16 H VBG pH VBG pCO2 VBG pO2 VBG Base Excess 04/15/25 09:00 ABG pH ABG pCO2 ABG pO2 ABG HCO3 ABG O2 Saturation ABG Base Excess VBG pH 7.36 VBG pCO2 88 H VBG pO2 27 VBG Base Excess 20 H Quality Measures Quality Measures none Assessment & Plan Assessment Current Active Medications: Generic Name Dose Route Start Last Admin Trade Name Freq PRN Reason Stop Dose Admin Acetaminophen 650 mg 04/13/25 10:17 Acetaminophen 325 Mg Tablet PO 05/13/25 10:16 Q6H PRN Fever >100.3 or pain Albuterol/Ipratropium 3 ml 04/13/25 13:00 04/15/25 12:52 Albuterol/Ipratropium (Duoneb) Rt Marita 3 Ml Nebu INH 05/13/25 12:59 3 ml Q6HRRT FREDIS Administration Atorvastatin Calcium 20 mg 04/14/25 21:00 04/14/25 22:18 Atorvastatin Calcium 20 Mg Tablet PO 05/14/25 20:59 20 mg HS FREDIS Administration Enoxaparin Sodium 40 mg 04/13/25 19:15 04/15/25 10:54 Enoxaparin Sod Inj 40 Mg/0.4 Ml Syringe SC 04/27/25 19:14 Not Given QDAY FREDIS Folic Acid 1 mg 04/13/25 21:00 04/15/25 10:32 Folic Acid 1 Mg Tablet PO 04/18/25 20:59 1 mg BID FREDIS Administration Furosemide 40 mg 04/14/25 15:15 04/15/25 10:34 Furosemide 40 Mg Tablet PO 05/14/25 15:14 Not Given QDAY FREDIS Hydralazine HCl 10 mg 04/13/25 13:54 Hydralazine Inj 20 Mg/Ml Vial IVP 05/13/25 13:53 Q4H PRN SBP >170 Levofloxacin/Dextrose 750 mg in 150 mls @ 100 mls/hr 04/13/25 13:15 04/15/25 12:00 Levaquin Ivpb IV 04/20/25 13:14 Infused QDAY FREDIS Infusion Ceftriaxone Sodium/Dextrose 1 gm in 50 mls @ 100 mls/hr 04/14/25 15:15 04/15/25 12:54 Rocephin/D5w 1gm Iv Premix IV 04/21/25 15:14 Infused QDAY FREDIS Infusion Lisinopril 5 mg 04/14/25 15:30 04/15/25 10:32 Lisinopril 2.5 Mg Tablet PO 05/14/25 15:29 5 mg QDAY FREDIS Administration Lorazepam 0.5 mg 04/13/25 17:58 Lorazepam 0.5 Mg Tablet PO 04/18/25 17:57 Q4HR PRN CIWA Score 2-6 Lorazepam 2 mg 04/13/25 17:58 Lorazepam 0.5 Mg Tablet PO 04/18/25 17:57 Q4HR PRN CIWA SCORE 12-15 Lorazepam 1 mg 04/13/25 17:58 Lorazepam 0.5 Mg Tablet PO 04/18/25 17:57 Q4HR PRN CIWA SCORE 7-11 Lorazepam 2 mg 04/13/25 17:58 Lorazepam 2 Mg/Ml Vial IV 04/18/25 17:57 Q2HR PRN CIWA SCORE 20-25 Lorazepam 2 mg 04/13/25 17:58 Lorazepam 2 Mg/Ml Vial IVP X1 PRN Breakthrough Agitation Lorazepam 1 mg 04/15/25 10:52 Lorazepam 2 Mg/Ml Vial IV 04/18/25 17:57 Q2HR PRN CIWA SCORE 16-19 Methylprednisolone Sodium Succinate 40 mg 04/14/25 21:00 04/15/25 10:31 Methylprednisolone Sod Succ 40 Mg Vial IVP 04/21/25 20:59 40 mg BID FREDIS Administration Nicotine 21 mg 04/13/25 18:00 04/15/25 10:35 Nicotine Patch 21 Mg/24 Hr Patch.Td24 TOP 05/13/25 17:59 Not Given QDAY FREDIS Ondansetron HCl 4 mg 04/13/25 10:17 Ondansetron Inj 2 Mg/Ml Inj 2 Ml IVP 05/13/25 10:16 Q6H PRN NAUSEA OR VOMITING Protocol Thiamine HCl 200 mg 04/16/25 09:00 Thiamine Inj 100 Mg/Ml Vial 2 Ml IVP 05/13/25 17:59 QDAY FREDIS Zinc Acetate/Diphenhydramine 0 gm 04/15/25 12:04 Diphenhydramine/Zn Acet 2% Cr 30 Gm Tube TOP 05/15/25 12:03 Q4HR PRN Rash at IV site Plan This is a 60-year-old male with PMHx of severe COPD on 4 L home oxygen, known to us for recurrent admission for COPD exacerbation after requiring ICU admission for intubation, HFpEF EF 55 to 60%, HTN, HLD, admitted to ICU for acute metabolic encephalopathy 2/2 hypercapnic respiratory failure, which improved with BiPAP, did not require intubation. Repeat ABG showed improvement in pCO2, and pH. Acute metabolic encephalopathy (resolved) Acute/chronic hypoxic, hypercapnic respiratory failure Acute/chronic respiratory acidosis COPD exacerbation Compensated primary respiratory acidosis Chronic tobacco smoker Encephalopathic on admission with ABG showing pH 7.2 and PCO2 126 and PO2 71. He was immediately started on BiPAP, and admitted to ICU for further management. He did not require intubation. This morning, encephalopathy appeared to have resolved, he was again at baseline, ANO x 4. ABG showed pH 7.32, pCO2 90, PO254, bicarb >40. Likely cause is BiPAP noncompliance in addition to significant left base pneumonia. He was given a dose of DIAMOX to reduce Severity metabolic alkalosis and stimulate respiratory drive. Remains afebrile, no leukocytosis. Refused BiPAP overnight, required restraints for agitation. He has been on baseline oxygen this morning, satting well. VBG showed pH 7.36, pCO2 88. Bicarb was >40. ? Daily NICOTINE patch ? Continue DuoNebs q.6h. scheduled ? Continue BiPAP HS or PRN. ? Continue METHYLPREDNISOLONE 40 mg BID (04/14 to present) ? Continue AZITHROMYCIN (04/13 to present) ? Continue CEFTRIAXONE (04/13 to present) ? Pending cultures, MRSA ? Pending physical therapy HFpEF EF 55-60% from 09/2024 Appears slightly volume overload with bilateral extremity edema, lung sounds are clear. BNP 70 on admission. ? Continue home LASIX 40 mg p.o. daily ? Strict MEAGAN's HTN ? Continue home LISINOPRIL 5 mg HLD 02/02/25. Lipid panel showed TG 78, cholesterol 220, LDL 151, HDL 53. ? Continue home ATORVASTATIN 20 mg daily Concern for scabies Physical exam showed diffuse rash involving multiple body parts, as described in physical exam above. He completed a dose of PERMETHRIN a week prior to admission for suspected scabies. ? Received another dose of PERMETHRIN on admission. Alcohol use disorder ? On CIWA ? Daily THIAMINE Health maintenance Diet: Cardiac GI prophylaxis: Not indicated DVT prophylaxis: LOVENOX Antibiotics: CEFTRIAXONE, AZITHROMYCIN CODE STATUS: Full code [facility] Case was discussed with attending physician and senior resident. Mihir Strong DO PGYI Attending Provider Attestation/Addendum Kristina Doshi DO, attest that I was physically present for the malone portions of the service and evaluated the patient with the resident and I reviewed and discussed the case with the resident and agree with the resident's findings and plans of care as documented above Patient seen and evaluated this AM. Patient has been noncompliant and removing all his IVs. Patient continues to have pruritus due to rash. Patient refusing physical exam. He is on 4 L nasal cannula. Lasix was held due to contractile alkalosis. Continue with IV antibioticsAnd steroids. Urged patient to use BiPAP at night. Patient continues to have CO2 retention.
[2025-04-15] MEDS: ATORVASTATIN CALCIUM 20 MG TABLET PO (20:22)
[2025-04-16] VITALS (14 sets, daily range): BP systolic 110–172; BP diastolic 68–84; PULSE 61–96; RESP 16–40; TEMP 36.1–36.5; O2SAT 92–98
[2025-04-16] MEDS: ALBUTEROL/IPRATROPIUM (Duoneb) RT SOL 3 ML NEBU INH ×3 (01:33→12:50)
[2025-04-16 06:04] LABS: Basophils % (Auto) 0 % (0-2.5); Eosinophils % (Auto) 0 % (0-10); Hematocrit 39.4 % (41.0-53.0); Hemoglobin 11.6 g/dL (13.5-16.0); Immature Granulocytes % (Auto) 1 % (0-0); Immature Granulocytes Auto 0.06 Thou/mm3 (0.00-0.00); Lymphocytes # (Auto) 0.3 Thou/mm3 (1.0-4.8); Lymphocytes % (Auto) 5 % (10-50); Mean Corpuscular HGB Conc 29.4 g/dl (31.0-37.0); Mean Corpuscular Hemoglobin 30.7 pg (25.0-35.0); Mean Corpuscular Volume 104 fL (80-100); Monocytes # (Auto) 0.1 Thou/mm3 (0.0-0.8); Monocytes % (Auto) 2 % (0-12); Neutrophils % (Auto) 93 % (37-80); Nucleated Red Blood Cell % 0 /100 WBC (0); Platelet Count 104 Thou/mm3 (140-440); RDW Standard Deviation 57.3 fL (35.1-43.9); Red Blood Count 3.78 Miln/mm3 (4.50-5.90); White Blood Count 6.5 Thou/mm3 (3.8-10.6)
[2025-04-16 06:26] LABS: Alanine Aminotransferase 11 U/L (10-49); Albumin, Serum 3.9 gm/dL (3.4-4.8); Alkaline Phosphatase 42 U/L (46-116); Anion Gap 9 (7-16); Aspartate Amino Transferase < 10 U/L (0-34); BUN/Creatinine Ratio 31 Ratio (12-20); Bilirubin,Total 0.2 mg/dL (0.3-1.2); Blood Urea Nitrogen 25 mg/dL (9-23); Calcium 8.9 mg/dL (8.3-10.6); Carbon Dioxide > 40.0 mMol/L (20.0-31.0); Chloride 92 mMol/L (98-107); Creatinine (Component) 0.8 mg/dL (0.6-1.3); Estimated Creatinine Clearance 124.3 mL/min (>60); Glucose 153 mg/dL (74-106); Magnesium 2.2 mg/dL (1.6-2.6); Osmolality,Calculated 288 (275-295); Phosphorous 3.4 mg/dL (2.4-5.1); Potassium 5.5 mMol/L (3.4-5.1); Sodium 141 mMol/L (136-145); Total Protein 5.9 gm/dL (5.7-8.2); eGFR > 60 See Note
[2025-04-16] MEDS: cefTRIAXone/D5w 1gm IV premix 1 GM/50 ML BAG IV (08:29)
[2025-04-16] MEDS: FOLIC ACID 1 MG TABLET PO ×2 (08:30→20:09)
[2025-04-16] MEDS: LEVOFLOXACIN/D5W 750MG IVPB 750 MG/150 ML BAG 100 MG IV (08:30)
[2025-04-16] MEDS: Lisinopril 2.5 MG TABLET 5 MG PO (08:31)
--- NOTE | 2025-04-16 11:22 | PC.NURSE ---
Patient intentionally pulled IV partially out demanding gauze be placed under tape securing IV, RN attempted to reestablish IV placement, but was not successful. Charge Nurse will attempt to insert new IV, patient does not want RN to try.
[2025-04-16] MEDS: SOD POLYSTYRENE SULFON SUSP 15 GM/60 ML BTL 30 GM PO (12:03)
--- NOTE | 2025-04-16 13:29 | ESPR_ITS ---
Documentation for date of: 04/16/25 Subjective Subjective Interval history: No significant overnight events. Patient had 2.1 L urine output with overall - 748 cc fluid balance. Patient wore his BiPAP throughout the night, encouraged to continue wearing it. We will order VBG in the morning and discharge if continues to be stable. Exam Vital Signs Temp Pulse Resp BP Pulse Ox O2 Del Method O2 Flow Rate 97.2 F 92 22 H 172/68 H 92 L Nasal Cannula 4 04/16/25 12:00 04/16/25 12:50 04/16/25 12:50 04/16/25 12:00 04/16/25 12:50 04/16/25 12:00 04/16/25 12:50 FiO2 40 04/16/25 07:00 Narrative Exam GENERAL * Obese male, awake and alert, on 3 to NC, satting well, NAD HEENT * NCAT.?[place]EL. Oral mucosa is moist. Patent Nares NECK * Supple, nontender, no thyromegaly, no meningismus, no JVD, no step offs CHEST * RRR, mild systolic murmur, no rubs or gallops. * CTAB, no w/r/r. Symmetrical chest rise. No intercostal subcostal retraction * Atraumatic, nontender, no crepitus, symmetrical expansion. ABDOMEN * Soft, flat, nontender. No guarding/rebound tenderness/masses. * Bowel sounds presents EXTREMITIES * 1+ bilateral lower extremity pitting edema. SKIN * Diffuse, small, round vesicular/pustular, erythematous rash involving multiple body parts including face, neck, arms and lower extremity (overall improved) NEUROMUSCULAR * Moves all 4 extremities well, with full ROM and good CSM. * No focal neurologic deficits. PSYCHIATRY * Normal mood and affect, cooperative, no SI or HI or hallucinations. Objective Labs 04/17/25 05:30 04/17/25 05:30 Labs: Laboratory Results - last 24 hr 04/16/25 05:08 WBC 6.5 RBC 3.78 L Hgb 11.6 L Hct 39.4 L MCV 104 H MCH 30.7 MCHC 29.4 L RDW Std Deviation 57.3 H Plt Count 104 L Neut % (Auto) 93 H Lymph % (Auto) 5 L [place] % (Auto) 2 Eos % (Auto) 0 Baso % (Auto) 0 Neut # (Auto) 6.0 Lymph # (Auto) 0.3 L [place] # (Auto) 0.1 Eos # (Auto) 0.0 Baso # (Auto) 0.0 Immature Gran # (Auto) 0.06 H Absolute Nucleated RBC 0.00 Immature Gran % 1 H Nucleated RBC % 0 Sodium 141 Potassium 5.5 H D Chloride 92 L Carbon Dioxide > 40.0 H Anion Gap 9 BUN 25 H Creatinine 0.8 Estim Creat Clear Calc 124.3 eGFR > 60 BUN/Creatinine Ratio 31 H Glucose 153 H Calculated Osmolality 288 Calcium 8.9 Corrected Calcium 9.0 Phosphorus 3.4 Magnesium 2.2 Total Bilirubin 0.2 L AST < 10 ALT 11 Alkaline Phosphatase 42 L Total Protein 5.9 Albumin 3.9 Globulin 2.0 L Albumin/Globulin Ratio 2.0 ABG Interpretation ABG results: 04/13/25 04/13/25 04/13/25 07:42 11:50 15:18 ABG pH 7.20 L 7.22 L 7.32 L D ABG pCO2 126 H* 114 H* D 90 H* D ABG pO2 71 L 88 54 L* D ABG HCO3 49 H 47 H 46 H ABG O2 Saturation 92 95 88 L ABG Base Excess 16 H 14 H 16 H VBG pH VBG pCO2 VBG pO2 VBG Base Excess 04/15/25 09:00 ABG pH ABG pCO2 ABG pO2 ABG HCO3 ABG O2 Saturation ABG Base Excess VBG pH 7.36 VBG pCO2 88 H VBG pO2 27 VBG Base Excess 20 H Quality Measures Quality Measures none Assessment & Plan Assessment Current Active Medications: Generic Name Dose Route Start Last Admin Trade Name Freq PRN Reason Stop Dose Admin Acetaminophen 650 mg 04/13/25 10:17 Acetaminophen 325 Mg Tablet PO 05/13/25 10:16 Q6H PRN Fever >100.3 or pain Albuterol/Ipratropium 3 ml 04/13/25 13:00 04/16/25 12:50 Albuterol/Ipratropium (Duoneb) Rt Marita 3 Ml Nebu INH 05/13/25 12:59 3 ml Q6HRRT FREDIS Administration Atorvastatin Calcium 20 mg 04/14/25 21:00 04/15/25 20:22 Atorvastatin Calcium 20 Mg Tablet PO 05/14/25 20:59 20 mg HS FREDIS Administration Enoxaparin Sodium 40 mg 04/13/25 19:15 04/16/25 08:31 Enoxaparin Sod Inj 40 Mg/0.4 Ml Syringe SC 04/27/25 19:14 Not Given QDAY FREDIS Folic Acid 1 mg 04/13/25 21:00 04/16/25 08:30 Folic Acid 1 Mg Tablet PO 04/18/25 20:59 1 mg BID FREDIS Administration Furosemide 40 mg 04/14/25 15:15 04/15/25 10:34 Furosemide 40 Mg Tablet PO 05/14/25 15:14 Not Given QDAY FREDIS Hydralazine HCl 10 mg 04/13/25 13:54 Hydralazine Inj 20 Mg/Ml Vial IVP 05/13/25 13:53 Q4H PRN SBP >170 Levofloxacin/Dextrose 750 mg in 150 mls @ 100 mls/hr 04/13/25 13:15 04/16/25 08:30 Levaquin Ivpb IV 04/20/25 13:14 100 mls/hr QDAY FREDIS Administration Lisinopril 5 mg 04/14/25 15:30 04/16/25 08:31 Lisinopril 2.5 Mg Tablet PO 05/14/25 15:29 5 mg QDAY FREDIS Administration Lorazepam 0.5 mg 04/13/25 17:58 Lorazepam 0.5 Mg Tablet PO 04/18/25 17:57 Q4HR PRN CIWA Score 2-6 Lorazepam 2 mg 04/13/25 17:58 Lorazepam 0.5 Mg Tablet PO 04/18/25 17:57 Q4HR PRN CIWA SCORE 12-15 Lorazepam 1 mg 04/13/25 17:58 Lorazepam 0.5 Mg Tablet PO 04/18/25 17:57 Q4HR PRN CIWA SCORE 7-11 Lorazepam 2 mg 04/13/25 17:58 Lorazepam 2 Mg/Ml Vial IVP X1 PRN Breakthrough Agitation Lorazepam 1 mg 04/15/25 10:52 Lorazepam 2 Mg/Ml Vial IV 04/18/25 17:57 Q2HR PRN CIWA SCORE 16-19 Methylprednisolone Sodium Succinate 40 mg 04/14/25 21:00 04/16/25 08:49 Methylprednisolone Sod Succ 40 Mg Vial IVP 04/21/25 20:59 Not Given BID FREDIS Nicotine 21 mg 04/13/25 18:00 04/16/25 08:31 Nicotine Patch 21 Mg/24 Hr Patch.Td24 TOP 05/13/25 17:59 Not Given QDAY FREDIS Ondansetron HCl 4 mg 04/13/25 10:17 Ondansetron Inj 2 Mg/Ml Inj 2 Ml IVP 05/13/25 10:16 Q6H PRN NAUSEA OR VOMITING Protocol Thiamine HCl 200 mg 04/16/25 09:00 04/16/25 12:51 Thiamine Inj 100 Mg/Ml Vial 2 Ml IVP 05/13/25 17:59 Not Given QDAY FREDIS Zinc Acetate/Diphenhydramine 0 gm 04/15/25 12:04 Diphenhydramine/Zn Acet 2% Cr 30 Gm Tube TOP 05/15/25 12:03 Q4HR PRN Rash at IV site Plan This is a 60-year-old male with PMHx of severe COPD on 4 L home oxygen, known to us for recurrent admission for COPD exacerbation after requiring ICU admission for intubation, HFpEF EF 55 to 60%, HTN, HLD, admitted to ICU for acute metabolic encephalopathy 2/2 hypercapnic respiratory failure, which improved with BiPAP, did not require intubation. Repeat ABG showed improvement in pCO2, and pH. Acute metabolic encephalopathy (resolved) Acute/chronic hypoxic, hypercapnic respiratory failure Acute/chronic respiratory acidosis COPD exacerbation Compensated primary respiratory acidosis Chronic tobacco smoker Encephalopathic on admission with ABG showing pH 7.2 and PCO2 126 and PO2 71. He was immediately started on BiPAP, and admitted to ICU for further management. He did not require intubation. This morning, encephalopathy appeared to have resolved, he was again at baseline, ANO x 4. ABG showed pH 7.32, pCO2 90, PO254, bicarb >40. Likely cause is BiPAP noncompliance in addition to significant left base pneumonia. He was given a dose of DIAMOX to reduce Severity metabolic alkalosis and stimulate respiratory drive. Remains afebrile, no leukocytosis. Refused BiPAP overnight, required restraints for agitation. He has been on baseline oxygen this morning, satting well. VBG showed pH 7.36, pCO2 88. Bicarb was >40. ? Daily NICOTINE patch - Will order VBG in morning ? Continue DuoNebs q.6h. scheduled ? Continue BiPAP HS or PRN. ? Continue METHYLPREDNISOLONE 40 mg BID (04/14 to present) ? Continue AZITHROMYCIN (04/13 to present) ? Continue CEFTRIAXONE (04/13 to present) ? Pending cultures, MRSA ? Pending physical therapy HFpEF EF 55-60% from 09/2024 Appears slightly volume overload with bilateral extremity edema, lung sounds are clear. BNP 70 on admission. ? Continue home LASIX 40 mg p.o. daily ? Strict MEAGAN's HTN ? Continue home LISINOPRIL 5 mg HLD 02/02/25. Lipid panel showed TG 78, cholesterol 220, LDL 151, HDL 53. ? Continue home ATORVASTATIN 20 mg daily Concern for scabies Physical exam showed diffuse rash involving multiple body parts, as described in physical exam above. He completed a dose of PERMETHRIN a week prior to admission for suspected scabies. ? Received another dose of PERMETHRIN on admission. Alcohol use disorder ? On CIWA ? Daily THIAMINE Health maintenance Diet: Cardiac GI prophylaxis: Not indicated DVT prophylaxis: LOVENOX Antibiotics: CEFTRIAXONE, AZITHROMYCIN CODE STATUS: Full code Disposition: Treating AHRF, repeat VBG in morning, anticipating d/c within 24 hours This patient care was discussed with my attending Dr. Gonzales Sanderson MD PGY-2 Disclaimer: Minor errors in packing machine tender may be present since this note was dictated by speech recognition software. Attending Provider Attestation/Addendum I, Kristina Rolon, DO, attest that I was physically present for the malone portions of the service and evaluated the patient with the resident and I reviewed and discussed the case with the resident and agree with the resident's findings and plans of care as documented above Patient seen and evaluated this AM. He continues to retain CO2 and states he wore the BiPap at night. Encouraged patient to keep using BiPap any time at rest. Will order ABG in AM to assess improvement. Anticipate DC within next 24- 48h if patient is improved and stable.
[2025-04-16] MEDS: ATORVASTATIN CALCIUM 20 MG TABLET PO (20:09)
[2025-04-17] VITALS (14 sets, daily range): BP systolic 138–175; BP diastolic 65–78; PULSE 64–103; RESP 15–30; TEMP 36.1–36.2; O2SAT 91–100; BMI 35.4
[2025-04-17 05:46] LABS: Base Excess, Venous 19 (-3-3); O2 Saturation, Venous 69 % (96-97); PCO2, Venous 116 mmHg (36-56); PO2, Venous 39 mmHg (15-58); pH, Venous 7.26 (7.33-7.66)
[2025-04-17 05:57] LABS: Basophils % (Auto) 0 % (0-2.5); Eosinophils % (Auto) 0 % (0-10); Hematocrit 43.5 % (41.0-53.0); Hemoglobin 13.1 g/dL (13.5-16.0); Immature Granulocytes % (Auto) 2 % (0-0); Immature Granulocytes Auto 0.11 Thou/mm3 (0.00-0.00); Lymphocytes # (Auto) 0.3 Thou/mm3 (1.0-4.8); Lymphocytes % (Auto) 5 % (10-50); Mean Corpuscular HGB Conc 30.1 g/dl (31.0-37.0); Mean Corpuscular Hemoglobin 30.3 pg (25.0-35.0); Mean Corpuscular Volume 101 fL (80-100); Monocytes # (Auto) 0.1 Thou/mm3 (0.0-0.8); Monocytes % (Auto) 2 % (0-12); Neutrophils # (Auto) 6.4 Thou/mm3 (1.8-7.7); Neutrophils % (Auto) 92 % (37-80); Nucleated Red Blood Cell % 0 /100 WBC (0); Platelet Count 112 Thou/mm3 (140-440); RDW Standard Deviation 55.7 fL (35.1-43.9); Red Blood Count 4.33 Miln/mm3 (4.50-5.90)
[2025-04-17 06:33] LABS: Alanine Aminotransferase 13 U/L (10-49); Albumin, Serum 4.3 gm/dL (3.4-4.8); Alkaline Phosphatase 47 U/L (46-116); Anion Gap 11 (7-16); Aspartate Amino Transferase 10 U/L (0-34); BUN/Creatinine Ratio 30 Ratio (12-20); Bilirubin,Total 0.3 mg/dL (0.3-1.2); Blood Urea Nitrogen 21 mg/dL (9-23); Calcium 9.3 mg/dL (8.3-10.6); Calcium (Corrected) 9.3 mg/dL (8.5-10.1); Carbon Dioxide > 40.0 mMol/L (20.0-31.0); Chloride 91 mMol/L (98-107); Creatinine (Component) 0.7 mg/dL (0.6-1.3); Globulin 2.1 gm/dL (2.3-3.5); Glucose 159 mg/dL (74-106); Magnesium 2.1 mg/dL (1.6-2.6); Osmolality,Calculated 289 (275-295); Phosphorous 4.2 mg/dL (2.4-5.1); Potassium 5.1 mMol/L (3.4-5.1); Sodium 142 mMol/L (136-145); Total Protein 6.4 gm/dL (5.7-8.2); eGFR > 60 See Note
[2025-04-17] MEDS: ALBUTEROL/IPRATROPIUM (Duoneb) RT SOL 3 ML NEBU INH ×3 (06:57→18:46)
--- NOTE | 2025-04-17 07:12 | ESPR_ITS ---
Documentation for date of: 04/17/25 Subjective Subjective Interval history: No acute overnight events. Reports feeling fatigued and somnolence this morning, likely 2/2 hypercapnia. Continues to refuse BiPAP at night. Previous morning showed pH 7.26, pCO2 116. He was started on BiPAP with repeat ABG showed pH 7.31, pCO2 110. Continued on BiPAP. Remainder labs are stable. Exam Vital Signs Temp Pulse Resp BP Pulse Ox O2 Del Method O2 Flow Rate 97.0 F 90 20 173/78 H 100 Room Air 4 04/17/25 04:00 04/17/25 07:01 04/17/25 07:01 04/17/25 04:00 04/17/25 07:01 04/17/25 04:00 04/17/25 07:01 FiO2 40 04/16/25 23:38 Narrative Exam GENERAL * Obese male, awake and alert, on 3 to NC, satting well, NAD HEENT * NCAT.?NATANAEL. Oral mucosa is moist. Patent Nares NECK * Supple, nontender, no thyromegaly, no meningismus, no JVD, no step offs CHEST * RRR, mild systolic murmur, no rubs or gallops. * CTAB, no w/r/r. Symmetrical chest rise. No intercostal subcostal retraction * Atraumatic, nontender, no crepitus, symmetrical expansion. ABDOMEN * Soft, flat, nontender. No guarding/rebound tenderness/masses. * Bowel sounds presents EXTREMITIES * 1+ bilateral lower extremity pitting edema. SKIN * Diffuse, small, round vesicular/pustular, erythematous rash involving multiple body parts including face, neck, arms and lower extremity (overall improved) NEUROMUSCULAR * Moves all 4 extremities well, with full ROM and good CSM. * No focal neurologic deficits. PSYCHIATRY * Normal mood and affect, cooperative, no SI or HI or hallucinations. Objective Labs 04/18/25 03:10 04/18/25 03:10 Labs: Laboratory Results - last 24 hr 04/17/25 05:30 WBC 7.0 RBC 4.33 L Hgb 13.1 L Hct 43.5 MCV 101 H MCH 30.3 MCHC 30.1 L RDW Std Deviation 55.7 H Plt Count 112 L Neut % (Auto) 92 H Lymph % (Auto) 5 L Petroleum % (Auto) 2 Eos % (Auto) 0 Baso % (Auto) 0 Neut # (Auto) 6.4 Lymph # (Auto) 0.3 L Petroleum # (Auto) 0.1 Eos # (Auto) 0.0 Baso # (Auto) 0.0 Immature Gran # (Auto) 0.11 H Absolute Nucleated RBC 0.00 Immature Gran % 2 H Nucleated RBC % 0 VBG pH 7.26 L VBG pCO2 116 H D VBG pO2 39 VBG O2 Sat (Osmin) 69 L D VBG Base Excess 19 H Sodium 142 Potassium 5.1 Chloride 91 L Carbon Dioxide > 40.0 H Anion Gap 11 BUN 21 Creatinine 0.7 Estim Creat Clear Calc 142.0 eGFR > 60 BUN/Creatinine Ratio 30 H Glucose 159 H Calculated Osmolality 289 Calcium 9.3 Corrected Calcium 9.3 Phosphorus 4.2 Magnesium 2.1 Total Bilirubin 0.3 AST 10 ALT 13 Alkaline Phosphatase 47 Total Protein 6.4 Albumin 4.3 Globulin 2.1 L Albumin/Globulin Ratio 2.0 ABG Interpretation ABG results: 04/13/25 04/13/25 04/13/25 07:42 11:50 15:18 ABG pH 7.20 L 7.22 L 7.32 L D ABG pCO2 126 H* 114 H* D 90 H* D ABG pO2 71 L 88 54 L* D ABG HCO3 49 H 47 H 46 H ABG O2 Saturation 92 95 88 L ABG Base Excess 16 H 14 H 16 H VBG pH VBG pCO2 VBG pO2 VBG Base Excess 04/15/25 04/17/25 09:00 05:30 ABG pH ABG pCO2 ABG pO2 ABG HCO3 ABG O2 Saturation ABG Base Excess VBG pH 7.36 7.26 L VBG pCO2 88 H 116 H D VBG pO2 27 39 VBG Base Excess 20 H 19 H Quality Measures Quality Measures none Assessment & Plan Assessment Current Active Medications: Generic Name Dose Route Start Last Admin Trade Name Freq PRN Reason Stop Dose Admin Acetaminophen 650 mg 04/13/25 10:17 Acetaminophen 325 Mg Tablet PO 05/13/25 10:16 Q6H PRN Fever >100.3 or pain Albuterol/Ipratropium 3 ml 04/13/25 13:00 04/17/25 06:57 Albuterol/Ipratropium (Duoneb) Rt Marita 3 Ml Nebu INH 05/13/25 12:59 3 ml Q6HRRT FREDIS Administration Atorvastatin Calcium 20 mg 04/14/25 21:00 04/16/25 20:09 Atorvastatin Calcium 20 Mg Tablet PO 05/14/25 20:59 20 mg HS FREDIS Administration Enoxaparin Sodium 40 mg 04/13/25 19:15 04/16/25 08:31 Enoxaparin Sod Inj 40 Mg/0.4 Ml Syringe SC 04/27/25 19:14 Not Given QDAY FREDIS Folic Acid 1 mg 04/13/25 21:00 04/16/25 20:09 Folic Acid 1 Mg Tablet PO 04/18/25 20:59 1 mg BID FREDIS Administration Furosemide 40 mg 04/14/25 15:15 04/15/25 10:34 Furosemide 40 Mg Tablet PO 05/14/25 15:14 Not Given QDAY FREDIS Hydralazine HCl 10 mg 04/13/25 13:54 Hydralazine Inj 20 Mg/Ml Vial IVP 05/13/25 13:53 Q4H PRN SBP >170 Levofloxacin/Dextrose 750 mg in 150 mls @ 100 mls/hr 04/13/25 13:15 04/16/25 08:30 Levaquin Ivpb IV 04/20/25 13:14 100 mls/hr QDAY FREDIS Administration Lisinopril 5 mg 04/14/25 15:30 04/16/25 08:31 Lisinopril 2.5 Mg Tablet PO 05/14/25 15:29 5 mg QDAY FREDIS Administration Lorazepam 0.5 mg 04/13/25 17:58 Lorazepam 0.5 Mg Tablet PO 04/18/25 17:57 Q4HR PRN CIWA Score 2-6 Lorazepam 2 mg 04/13/25 17:58 Lorazepam 0.5 Mg Tablet PO 04/18/25 17:57 Q4HR PRN CIWA SCORE 12-15 Lorazepam 1 mg 04/13/25 17:58 Lorazepam 0.5 Mg Tablet PO 04/18/25 17:57 Q4HR PRN CIWA SCORE 7-11 Lorazepam 2 mg 04/13/25 17:58 Lorazepam 2 Mg/Ml Vial IVP X1 PRN Breakthrough Agitation Lorazepam 1 mg 04/15/25 10:52 Lorazepam 2 Mg/Ml Vial IV 04/18/25 17:57 Q2HR PRN CIWA SCORE 16-19 Methylprednisolone Sodium Succinate 40 mg 04/14/25 21:00 04/16/25 20:08 Methylprednisolone Sod Succ 40 Mg Vial IVP 04/21/25 20:59 40 mg BID FREDIS Administration Nicotine 21 mg 04/13/25 18:00 04/16/25 08:31 Nicotine Patch 21 Mg/24 Hr Patch.Td24 TOP 05/13/25 17:59 Not Given QDAY FREDIS Ondansetron HCl 4 mg 04/13/25 10:17 Ondansetron Inj 2 Mg/Ml Inj 2 Ml IVP 05/13/25 10:16 Q6H PRN NAUSEA OR VOMITING Protocol Thiamine HCl 200 mg 04/17/25 09:00 Thiamine 100 Mg Tablet PO 05/17/25 08:59 QDAY FREDIS Zinc Acetate/Diphenhydramine 0 gm 04/15/25 12:04 Diphenhydramine/Zn Acet 2% Cr 30 Gm Tube TOP 05/15/25 12:03 Q4HR PRN Rash at IV site Plan This is a 60-year-old male with PMHx of severe COPD on 4 L home oxygen, known to us for recurrent admission for COPD exacerbation after requiring ICU admission for intubation, HFpEF EF 55 to 60%, HTN, HLD, admitted to ICU for acute metabolic encephalopathy 2/2 hypercapnic respiratory failure, which improved with BiPAP, did not require intubation. Repeat ABG showed improvement in pCO2, and pH. Acute metabolic encephalopathy (resolved) Acute/chronic hypoxic, hypercapnic respiratory failure Acute/chronic respiratory acidosis COPD exacerbation Compensated primary respiratory acidosis Chronic tobacco smoker Encephalopathic on admission with ABG showing pH 7.2 and PCO2 126 and PO2 71. He was immediately started on BiPAP, and admitted to ICU for further management. He did not require intubation. This morning, encephalopathy appeared to have resolved, he was again at baseline, ANO x 4. ABG showed pH 7.32, pCO2 90, PO254, bicarb >40. Likely cause is BiPAP noncompliance in addition to significant left base pneumonia. He was given a dose of DIAMOX to reduce Severity metabolic alkalosis and stimulate respiratory drive. Remains afebrile, no leukocytosis. Refused BiPAP overnight, required restraints for agitation. He has been on baseline oxygen this morning, satting well. ABG and VBG showing sustained hypercapnia and acidemia, continues to be noncompliant with BiPAP. ? Daily NICOTINE patch ? Will order VBG in morning ? Continue DuoNebs q.6h. scheduled ? Continue BiPAP HS or PRN. ? Continue METHYLPREDNISOLONE 40 mg BID (04/14 to present) ? Continue AZITHROMYCIN (04/13 to present) ? Continue CEFTRIAXONE (04/13 to present) ? Pending cultures, MRSA ? Pending physical therapy HFpEF EF 55-60% from 09/2024 Appears slightly volume overload with bilateral extremity edema, lung sounds are clear. BNP 70 on admission. ? Continue home LASIX 40 mg p.o. daily ? Strict MEAGAN's HTN ? Continue home LISINOPRIL 5 mg HLD 02/02/25. Lipid panel showed TG 78, cholesterol 220, LDL 151, HDL 53. ? Continue home ATORVASTATIN 20 mg daily Concern for scabies Physical exam showed diffuse rash involving multiple body parts, as described in physical exam above. He completed a dose of PERMETHRIN a week prior to admission for suspected scabies. ? Received another dose of PERMETHRIN on admission. Alcohol use disorder ? On CIWA ? Daily THIAMINE Health maintenance Diet: Cardiac GI prophylaxis: Not indicated DVT prophylaxis: LOVENOX Antibiotics: CEFTRIAXONE, AZITHROMYCIN CODE STATUS: Full code Disposition: Treating AHRF, repeat VBG in morning, anticipating d/c within 24 hours Case was discussed with attending physician and senior resident. Mihir Strong DO PGYI This document was transcribed using voice recognition technology. Minor inaccuracies may be present. Attending Provider Attestation/Addendum Kristina Doshi DO, attest that I was physically present for the malone portions of the service and evaluated the patient with the resident and I reviewed and discussed the case with the resident and agree with the resident's findings and plans of care as documented above Patient seen and evaluated this AM. Patient has worsening CO2 retention. Patient states that he did not wear his BiPap on for long overnight. Encouraged patient to use BiPap throughout the day. Will obtain ABG in AM. Continue wtih current management. Patient counselled regarding compliance with BiPap.
[2025-04-17] MEDS: LEVOFLOXACIN/D5W 750MG IVPB 750 MG/150 ML BAG 100 MG IV (09:18)
[2025-04-17] MEDS: THIAMINE 100 MG TABLET 200 MG PO (09:19)
[2025-04-17] MEDS: Lisinopril 2.5 MG TABLET 5 MG PO (09:20)
[2025-04-17] MEDS: ENOXAPARIN SOD INJ 40 MG/0.4 ML SYRINGE SC (09:20)
[2025-04-17] MEDS: FOLIC ACID 1 MG TABLET PO ×2 (09:20→20:27)
[2025-04-17 11:13] LABS: Base Excess 23 (-3-3); HCO3 55 mEq/L (20-26); Inspired Oxygen, FIO2 40 %; O2 Saturation 93 % (91-98); PCO2 110 mmHg (32.0-48.0); PO2 74 mmHg (83-108); pH, Arterial 7.31 (7.35-7.45)
[2025-04-17 11:14] LABS: Allen Test Performed/OK; Puncture Site Left Radial
--- NOTE | 2025-04-17 11:44 | PC.PT ---
Patient is currently on Bipap and was just transitioned this morning. PT eval witheld today.
--- NOTE | 2025-04-17 15:43 | PC.SS ---
Follow up note: SS spoke to patient at bedside regarding discharge plans. APS was filed in ER on patient for self neglect. Patient is being treated for scabies and nursing states patient clifford had two treatments. Patient is on isolation precautions. Patient is on bipap and 02. He states he only has 02 at home no bipap machine. SS discussed the need for a short term SNF. Patient is agreeable at this time. His preference is [facility]. Patient was concerned about facility taking his money and initially did not want to go. Patient needs auth and will need PT evaluation documented. SS will send out to all faclities.
[2025-04-17] MEDS: ATORVASTATIN CALCIUM 20 MG TABLET PO (20:28)
[2025-04-18] VITALS (12 sets, daily range): BP systolic 147–163; BP diastolic 59–82; PULSE 61–89; RESP 15–26; TEMP 36.1–36.7; O2SAT 92–99
[2025-04-18] MEDS: LORazepam 0.5 MG TABLET PO (02:36)
--- NOTE | 2025-04-18 02:44 | PC.NURSE ---
pt is very anxious and restless, keeps asking for urinal. pt has a pyle cath, DR Hawthorne was made aware. at bedside to assess pt.
[2025-04-18 03:24] LABS: Base Excess, Venous 19 (-3-3); O2 Saturation, Venous 93 % (96-97); PCO2, Venous 84 mmHg (36-56); PO2, Venous 70 mmHg (15-58); pH, Venous 7.38 (7.33-7.66)
[2025-04-18 03:28] LABS: Basophils % (Auto) 0 % (0-2.5); Eosinophils % (Auto) 0 % (0-10); Hematocrit 37.9 % (41.0-53.0); Hemoglobin 11.7 g/dL (13.5-16.0); Immature Granulocytes % (Auto) 1 % (0-0); Immature Granulocytes Auto 0.08 Thou/mm3 (0.00-0.00); Lymphocytes # (Auto) 0.2 Thou/mm3 (1.0-4.8); Lymphocytes % (Auto) 3 % (10-50); Mean Corpuscular HGB Conc 30.9 g/dl (31.0-37.0); Mean Corpuscular Hemoglobin 30.5 pg (25.0-35.0); Mean Corpuscular Volume 99 fL (80-100); Monocytes # (Auto) 0.1 Thou/mm3 (0.0-0.8); Monocytes % (Auto) 2 % (0-12); Neutrophils # (Auto) 6.1 Thou/mm3 (1.8-7.7); Neutrophils % (Auto) 94 % (37-80); Nucleated Red Blood Cell % 0 /100 WBC (0); Platelet Count 110 Thou/mm3 (140-440); RDW Standard Deviation 53.9 fL (35.1-43.9); Red Blood Count 3.83 Miln/mm3 (4.50-5.90); White Blood Count 6.5 Thou/mm3 (3.8-10.6)
[2025-04-18 03:50] LABS: Alanine Aminotransferase 11 U/L (10-49); Albumin, Serum 3.7 gm/dL (3.4-4.8); Albumin/Globulin Ratio 2.1 (1.2-2.2); Alkaline Phosphatase 45 U/L (46-116); Anion Gap 9 (7-16); Aspartate Amino Transferase < 8 U/L (0-34); BUN/Creatinine Ratio 34 Ratio (12-20); Bilirubin,Total 0.3 mg/dL (0.3-1.2); Blood Urea Nitrogen 27 mg/dL (9-23); Calcium 9.2 mg/dL (8.3-10.6); Calcium (Corrected) 9.4 mg/dL (8.5-10.1); Carbon Dioxide > 40.0 mMol/L (20.0-31.0); Chloride 91 mMol/L (98-107); Creatinine (Component) 0.8 mg/dL (0.6-1.3); Estimated Creatinine Clearance 124.3 mL/min (>60); Globulin 1.8 gm/dL (2.3-3.5); Glucose 219 mg/dL (74-106); Magnesium 2.1 mg/dL (1.6-2.6); Osmolality,Calculated 291 (275-295); Phosphorous 3.2 mg/dL (2.4-5.1); Potassium 5.1 mMol/L (3.4-5.1); Sodium 140 mMol/L (136-145); Total Protein 5.5 gm/dL (5.7-8.2); eGFR > 60 See Note
[2025-04-18] MEDS: ALBUTEROL/IPRATROPIUM (Duoneb) RT SOL 3 ML NEBU INH ×3 (06:24→18:22)
[2025-04-18] MEDS: LEVOFLOXACIN 250 MG TABLET 750 MG PO (08:45)
[2025-04-18] MEDS: THIAMINE 100 MG TABLET 200 MG PO (08:45)
[2025-04-18] MEDS: Lisinopril 2.5 MG TABLET 5 MG PO (08:46)
[2025-04-18] MEDS: FOLIC ACID 1 MG TABLET PO (08:46)
[2025-04-18] MEDS: Furosemide 40 MG TABLET PO (08:46)
--- NOTE | 2025-04-18 08:47 | PC.SS ---
PASRR level 1 submitted, level 2 eval. pending review by [place] Department of [employer] [facility] Services. PT evaluation is also pending.
--- NOTE | 2025-04-18 09:06 | PC.NURSE ---
Pt educated on bipap use and benefits. Pt refused and requested coffee instead.
--- NOTE | 2025-04-18 10:12 | PC.NURSE ---
Per Pt missing a few items including wallet, 1,000 dollar check, 1 credit card, and house malone. Items are not in the room me and pt visually looked through the room no items seen. All at aware at bedside.
--- NOTE | 2025-04-18 11:41 | PC.NURSE ---
Found bag with all of pts personal missing belongings including wallet, credit cards, malone and $3. pt now has all belongings with him.
--- NOTE | 2025-04-18 12:01 | PC.NURSE ---
Pending ambulance transportation for discharge. Lauryn self in the room aware and will initiate transportation arrangements.
[2025-04-18 12:46] LABS: Base Excess, Venous 23 (-3-3); O2 Saturation, Venous 96 % (96-97); PCO2, Venous 80 mmHg (36-56); PO2, Venous 85 mmHg (15-58); pH, Venous 7.43 (7.33-7.66)
--- NOTE | 2025-04-18 13:36 | ESDS_ITS ---
<Statement entered by Kristina Rolon DO - 04/19/25 09:10> I, Kristina Rolon DO, attest that I was physically present for the malone portions of the service and evaluated the patient with the resident and I reviewed and discussed the case with the resident and agree with the resident's findings and plans of care as documented above <Statement entered by Vernon Sanderson MD - 04/19/25 00:34> I discussed with and supervised the international broadcast music librarian physician involved in the care of this patient. Patient assessment and plan was discussed with entire medicine team, including my attending. I agree with the assessment and plan as documented by international broadcast music librarian doctor. Vernon Sanderson MD PGY-2 Planned Discharge Date 04/18/25 DS: Providers Provider Date of admission: 04/13/25 10:17 Primary care physician: Physician Ayana Primary/Family Admitting Provider: Dipesh Cano MD Attending Provider on Admission: Kristina Rolon DO Consults: 04/14/25 15:19 Referral Physical Therapy Routine Comment: Physician Instructions: Attending Provider on DC: Kristina Rolon DO Discharging Provider: Kristina Rolon DO DS: Diagnosis Problem List Completed Was Problem List Reviewed/Reconciled?: Yes Hospital Course Hospital Course Hospital course: This is a 60-year-old male with PMHx of severe COPD on 4 L home oxygen, known to us for recurrent admission for COPD exacerbation after requiring ICU admission for intubation, HFpEF EF 55 to 60%, HTN, HLD, admitted to ICU for acute metabolic encephalopathy 2/2 hypercapnic respiratory failure, which improved with BiPAP, did not require intubation. He was continued on STEROIDS, CEFTRIAXONE and AZITHROMYCIN for pneumonia. In interim, he remained noncompliant with BiPAP, after refusing BiPAP at night, with repeat blood gas showing CO2 retention. Nonetheless, his symptoms improved on the day of discharge, pCO2 improved, mentation at baseline, vitals are stable, labs reviewed and without significant derangement. Patient was stable to discharge to home. With extensive discussion regarding continued tobacco smoking, alcohol use, and BiPAP noncompliance. Patient currently working on tobacco cessation, currently smoking 1 pack daily, but reported no interest in smoking or alcohol cessation at this time. Highly advised to reconsider. Also recommended compliance with BiPAP, every day at night, and as needed for shortness of breath, to prevent recurrent hospital admissions and health deterioration, and even . IMAGE FINDINGS: * CXR showed significant left base pneumonia. * EKG showed sinus rhythm without acute ST changes. PATIENT INSTRUCTIONS: * Follow-up with PCP within 1-2 weeks of discharge. * Continue using BiPAP daily at night, and as needed for shortness of breath. * Continue using oxygen as need for shortness of breath. * Continue with PREDNISONE taper pack, please follow label instructions below. * Received treatment for scabies, isolation no longer required. * Return to Emergency Room if symptoms persist, worsen, or new symptoms develop. * Continue taking medications as prescribed below. ADMISSION DIAGNOSES: Acute metabolic encephalopathy (resolved) Acute/chronic hypoxic, hypercapnic respiratory failure (improved) Acute/chronic respiratory acidosis COPD exacerbation (improved) Compensated primary respiratory acidosis (improved) Chronic tobacco smoker HFpEF EF 55-60% from 09/2024 HTN HLD Concern for scabies Alcohol use disorder Case was discussed with attending physician and senior resident. Mihir Strong DO PGYI Time Spent with Patient Time attestation: Total time spent providing and/or coordinating discharge services: Time spent: Greater than 30 minutes Exam Vital Signs Temp Pulse Resp BP Pulse Ox O2 Del Method O2 Flow Rate 97.8 F 68 20 161/59 H 98 Nasal Cannula 5 04/18/25 12:00 04/18/25 12:42 04/18/25 12:42 04/18/25 12:00 04/18/25 12:42 04/18/25 12:00 04/18/25 12:42 FiO2 40 04/18/25 03:17 Narrative Exam GENERAL * Obese male, awake and alert, on 3 to NC, satting well, NAD HEENT * NCAT.?NATANAEL. Oral mucosa is moist. Patent Nares NECK * Supple, nontender, no thyromegaly, no meningismus, no JVD, no step offs CHEST * RRR, mild systolic murmur, no rubs or gallops. * CTAB, no w/r/r. Symmetrical chest rise. No intercostal subcostal retraction * Atraumatic, nontender, no crepitus, symmetrical expansion. ABDOMEN * Soft, flat, nontender. No guarding/rebound tenderness/masses. * Bowel sounds presents EXTREMITIES * 1+ bilateral lower extremity pitting edema. SKIN * Diffuse, small, round vesicular/pustular, erythematous rash involving multiple body parts including face, neck, arms and lower extremity (overall improved) NEUROMUSCULAR * Moves all 4 extremities well, with full ROM and good CSM. * No focal neurologic deficits. PSYCHIATRY * Normal mood and affect, cooperative, no SI or HI or hallucinations. Discharge Plan Plan Patient Disposition: HOME (Self Care) Patient condition on transfer: Stable Care Plan Goals: * Follow-up with PCP within 1-2 weeks of discharge. * Continue using BiPAP daily at night, and as needed for shortness of breath. * Continue using oxygen as need for shortness of breath. * Continue with PREDNISONE taper pack, please follow label instructions below. * Received treatment for scabies, isolation no longer required. * Return to Emergency Room if symptoms persist, worsen, or new symptoms develop. * Continue taking medications as prescribed below. Prescriptions/Referrals Prescriptions/Med Rec: New prednisone 10 mg tablet See Taper PO QDAY Qty: 12 0RF Taper: Prednisone Taper 30 mg DAILY for 2 Days and 0 Hour 20 mg DAILY for 2 Days and 0 Hour 10 mg DAILY for 2 Days and 0 Hour Continued nicotine 21 mg/24 hr Patch 24 Hour 21 mg top QDAY PRN (Reason: Nicotine Cravings) Qty: 7 0RF furosemide 40 mg tablet 40 mg PO QDAY 7 Days Qty: 7 0RF Patient Comments: TAKE ONE TABLET BY MOUTH TWICE DAILY A DIURETIC albuterol sulfate 90 mcg/actuation aerosol powdr breath activated 2 inh inhalation Q6H PRN (Reason: shortness of breath or wheezing) Qty: 1 3RF Trelegy Ellipta 200-62.5-25 mcg blister with device 1 inh inhalation Q24H Qty: 60 0RF Discontinued prednisone 10 mg tablet See Taper PO QDAY Qty: 22 0RF Taper: Prednisone Taper 40 mg DAILY for 1 Day and 0 Hour 30 mg DAILY for 3 Days and 0 Hour 20 mg DAILY for 3 Days and 0 Hour 10 mg DAILY for 3 Days and 0 Hour Referrals: No Primary/Family,Physician [Primary Care Provider] - Patient/Caregiver Discharge Instructions Education Materials: ED Shortness of Breath (Dyspnea), ED Pneumonia (Adult) Print Language: Turkmen Stand Alone Forms: [facility] Award Info., Patient Portal Info Letter Discharge Order Discharge Orders: Discharge (Routine); Ordered 04/18/25 Ordered By: Mihir Strong Quality Discharge Quality Measures VTE prophylaxis
--- NOTE | 2025-04-18 15:36 | PC.NURSE ---
Patient removed his own iv notified md wood per MD hare to keep witout iv access until DC @1800.
== END 2025-04-18 18:48 | disposition home or self-care (01) | DRG 190 ==
LOC: SERX 10:27 → SERHOLD 12:30 → S2SX 12:31 → S3SX 04-14 11:59 → S3NX 04-15 20:15
PROVIDERS: Internal Medicine; Student in an Organized Health Care Education/Training Program; Admitting Provider Internal Medicine Critical Care Medicine; Emergency Provider Emergency Medicine; Visit Provider Internal Medicine
DX: J44.1 Chronic obstructive pulmonary disease with (acute) exacerbation (principal); G93.41 Metabolic encephalopathy; J96.21 Acute and chronic respiratory failure with hypoxia; J18.9 Pneumonia, unspecified organism; J96.22 Acute and chronic respiratory failure with hypercapnia; I50.32 Chronic diastolic (congestive) heart failure; E66.2 Morbid (severe) obesity with alveolar hypoventilation; E87.4 Mixed disorder of acid-base balance; J44.0 Chronic obstructive pulmonary disease with (acute) lower respiratory infection; I11.0 Hypertensive heart disease with heart failure; E78.5 Hyperlipidemia, unspecified; F10.10 Alcohol abuse, uncomplicated; F17.210 Nicotine dependence, cigarettes, uncomplicated; G47.33 Obstructive sleep apnea (adult) (pediatric); I25.10 Atherosclerotic heart disease of native coronary artery without angina pectoris; I48.0 Paroxysmal atrial fibrillation; Z53.20 Procedure and treatment not carried out because of patient's decision for unspecified reasons; Z79.899 Other long term (current) drug therapy; Z91.199 Patient's noncompliance with other medical treatment and regimen due to unspecified reason; Z95.1 Presence of aortocoronary bypass graft; Z99.81 Dependence on supplemental oxygen; D69.6 Thrombocytopenia, unspecified; B86 Scabies; L29.9 Pruritus, unspecified
CPT/HCPCS: 36415; 36600; 71045; 80053; 80307; 82248; 82803; 83605; 83735; 83880; 84100; 84145; 84439; 84443; 84484; 85025; 85379; 85610; 85652; 85730; 86140; 87040; 87081; 87400; 87811; 93225; 94640; 94660; 94664; 94667; 96365; 96366; 96375; 97162; 99285; A9270; J0456; J0696; J1650; J1956; J2919; J3411; J3475; J7050

== ENCOUNTER 2025-04-30 10:06 | Inpatient (IN) | payer MEDICARE, MEDICAID, SELFPAY ==
[2025-04-30] VITALS (16 sets, daily range): BP systolic 126–172; BP diastolic 63–88; PULSE 75–108; RESP 15–88; TEMP 36.4–37.3; O2SAT 86–97
--- NOTE | 2025-04-30 10:16 | XR_ITS ---
Examination: AP chest single view Technique one AP portable semiupright chest single view Date and time: April 30 thousand 25, 10:29 AM Comparison April 13, 2025 Indications: Chest pain shortness of breath beginning 3 days ago. Findings: Pneumonia left base with left pleural fluid Mild enlargement cardiac contour with mild vascular congestion. No leela pulmonary edema Impression: Significant pneumonia left base Mild to moderate left pleural fluid
--- NOTE | 2025-04-30 10:16 | EKG_ITS ---
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
--- NOTE | 2025-04-30 10:30 | EDNOTE_ITS ---
ED SOB =RME/HPI General Chief Complaint: Shortness of Breath/Dyspnea Stated Complaint: SOB Time Seen by Provider: 04/30/25 10:13 Arrival date/time: 04/30/25 10:06 Limitations: no limitations RME / HPI RME / HPI Narrative: 65 year old male with history of COPD on 4L home O2, multiple admissions and intubation (last intubated 03/16/2025), HFpEF 55-60% 03/2025, s/p CABG, AFib, hypertension, hyperlipidemia presents to the ED BIBA from home for evaluation of shortness of breath. Reports he was just discharged from this facility 1 week ago for similar shortness of breath and noted symptoms progressively worsened t his morning. Accompanied by cough. Per medics, on scene patient was visibly working to breathe. Patient denies fevers, chills, chest pain, abdominal pain, n/v, or urinary symptoms. Related Data Previous Rx's ?Medication ?Instructions ?Recorded nicotine 21 mg/24 hr daily 21 mg top QDAY PRN Nicotine 12/31/24 transdermal patch Cravings #7 ea albuterol sulfate 90 mcg/actuation 2 inh inhalation Q6 H PRN shortness 03/19/25 breath activated powder inhaler of breath or wheezing #1 ea fluticasone fur. 200 mcg-umeclid 1 inh inhalation Q24H #60 ea 03/19/25 62.5 mcg-vilant 25 mcg inhalat.powder (Trelegy Ellipta) furosemide 40 mg tablet 40 mg PO QDAY 7 days #7 tabs 03/19/25 prednisone 10 mg tablet See Taper PO QDAY #12 tabs 0 04/18/25 Allergies Allergy/AdvReac Type Severity Reaction Status Date / Time No Known Allergies Allergy Verified 04/13/25 07:30 Review of Systems Review of Systems Systems Reviewed: All systems reviewed, normal except as documented Past Medical History Past Medical History NEUROLOGIC: Positive Seizures CARDIAC: Positive Cardiac Disorders, Atrial Fibrillation, Hypercholesterolemia, Congestive Heart Failure and Hypertension RESPIRATORY: Positive Chronic Obstructive Pulmonary Disease (COPD), Asthma and Pneumonia GASTROINTESTINAL: Positive Obesity GENITOURINARY: Positive Genitourinary Disorders PSYCHO/SOCIAL: Positive Recreational Drug Use and Anxiety OTHER HISTORY: Positive Falls Surgical History SURGICAL: Positive Open Heart Surgery and Coronary Artery Bypass Graft Social History SMOKING STATUS: Current some day smoker SECOND HAND EXPOSURE: No SUBSTANCE USE: does not use ED Exam General Limitations: Present no limitations General appearance: Present alert and obese Head Head exam: Present atraumatic Eye Eye exam: Present normal appearance, PERRL and EOMI ENT ENT exam: Present normal exam, normal oropharynx and mucous membranes moist Neck Neck exam: Present normal inspection, full ROM and trachea midline Chest Chest inspection: Present normal inspection and symmetric chest wall rise Respiratory Respiratory exam: Present other (Increased work of breathing with prolonged expiratory phase ) Cardiovascular Cardiovascular exam: Present regular rate, normal rhythm and normal heart sounds Abdominal Exam Abdominal exam: Present soft, distention and normal bowel sounds Extremities Exam Extremities exam: Present full ROM and other (chronic venous stasis dermatitis to BLE ) Back Exam Back exam: Present normal inspection and full ROM Neurological Exam Neurological exam: Present alert, oriented X3 and CN II-XII intact Psychiatric Psychiatric exam: Present normal affect and normal mood Skin Skin exam: Present warm, dry and intact Course Course Course Narrative: chest xray ordered to help determine etiology of shortness of breath. Quality Measures none Orders Category Date Time Status Admit to Inpatient Status Routine Admission 04/30/25 13:43 Active Patient Condition Routine Admission 04/30/25 13:43 Ordered Apply soft cervical collar NOW Care 04/30/25 13:42 Active COVID-19 Screening Questionnaire NOW Care 04/30/25 12:40 Active Electronics Repair Technician STAT Care 04/30/25 10:16 Active Continuous Pulse Oximetry ONCE Care 04/30/25 10:16 Active Decision to Admit X1 Care 04/30/25 12:38 Active EKG (ED ONLY) *Do not use* NOW Care 04/30/25 10:16 Completed Insert IV STAT Care 04/30/25 10:16 Active Miscellaneous Nursing Order NOW Care 04/30/25 13:43 Active Notify provider NEEDED Care 04/30/25 13:43 Active Obtain weight daily Care 04/30/25 13:44 Active Strict Intake and Output Routine Care 04/30/25 13:43 Ordered Urinary Catheter QS Care 04/30/25 13:42 Active EKG (ED Only) Stat Exams 04/30/25 10:16 Draft XR chest 1V portable Stat Exams 04/30/25 10:16 Completed ABG [Arterial Blood Gas] Stat Lab 04/30/25 13:47 Completed B-Type Natriuretic Peptide Stat Lab 04/30/25 10:27 Completed CBC AM DRAW Lab 05/01/25 05:00 Ordered CBC AM DRAW Lab 05/02/25 05:00 Ordered CBC AM DRAW Lab 05/03/25 05:00 Ordered CBC Stat Lab 04/30/25 10:27 Completed Comprehensive Metabolic Panel AM DRAW Lab 05/01/25 05:00 Ordered Comprehensive Metabolic Panel AM DRAW Lab 05/02/25 05:00 Ordered Comprehensive Metabolic Panel AM DRAW Lab 05/03/25 05:00 Ordered Comprehensive Metabolic Panel Stat Lab 04/30/25 10:27 Completed D-Dimer Stat Lab 04/30/25 10:27 Completed Magnesium AM DRAW Lab 05/01/25 05:00 Ordered Magnesium AM DRAW Lab 05/02/25 05:00 Ordered Magnesium AM DRAW Lab 05/03/25 05:00 Ordered Magnesium Stat Lab 04/30/25 10:27 Completed Phosphorous AM DRAW Lab 05/01/25 05:00 Ordered Phosphorous AM DRAW Lab 05/02/25 05:00 Ordered Phosphorous AM DRAW Lab 05/03/25 05:00 Ordered Prothrombin Time with INR AM DRAW Lab 05/01/25 05:00 Ordered Troponin I Stat Lab 04/30/25 10:27 Completed VBG [Venous Blood Gas] Stat Lab 04/30/25 10:27 Completed ALBUTEROL RT 0.5ml [Proventil Rt 0.5ml] Med 04/30/25 10:30 Discontinued 5 mg INH X1 ONE ALBUTEROL RT 3ml [Proventil Rt 3ml] Med 04/30/25 10:17 Discontinued 5 mg INH X1 ONE Acetaminophen Tab [Tylenol Tab] Med 04/30/25 13:42 Active 650 mg PO Q6H PRN Albuterol/Ipratr Rt Marita [Duoneb Rt Marita] Med 04/30/25 13:42 Active 3 ml INH Q2HR PRN Azithromycin Inj [Zithromax Inj] 250 mg Med 05/01/25 09:00 Pending Sodium Chloride 0.9% 250 ml [Ns] 250 ml IV QDAY Azithromycin Inj [Zithromax Inj] 500 mg Med 04/30/25 13:47 Discontinued Sodium Chloride 0.9% 250 ml [Ns] 250 ml IV X1 Docusate Sod [Colace] Med 04/30/25 13:42 Active 100 mg PO QDAY PRN Enoxaparin [Lovenox] Med 05/01/25 09:00 Active 40 mg SC QDAY Ipratropium [place] Rt Marita [Atrovent Rt Marita] Med 04/30/25 10:17 Discontinued 0.5 mg INH X1 ONE Levofloxacin/D5w 500 mg Ivpb [Levaquin Ivpb] Med 04/30/25 12:38 Discontinued 500 mg in 100 ml IV X1 Magnesium Sulfate 1 gm Ivpb [Magnesium Sulfate Ivpb] Med 04/30/25 10:17 Discontinued 1 gm in 100 ml IV X1 MethylPREDNISolone.* [SoluMEDROL Inj] Med 04/30/25 14:00 Active 125 mg IVP DAILY Ondansetron Inj [Zofran Inj] Med 04/30/25 13:42 Active 4 mg IVP Q6H PRN Senna [Senokot] Med 04/30/25 13:42 Active 1 tab PO QDAY PRN cefTRIAXone/D5w 1gm IV premix [Rocephin/D5w 1gm IV Med 04/30/25 13:46 Active premix] 1 gm in 50 ml IV QDAY predniSONE Med 05/01/25 09:00 Discontinued 40 mg PO QDAY Code Status Routine Oth 04/30/25 13:42 Ordered BiPAP / CPAP NOW RT 04/30/25 13:42 Active Oxygen Delivery NOW RT 04/30/25 10:16 Active Vital Signs Vital signs: Vital Signs Temperature 99.1 F 04/30/25 10:10 Pulse Rate 96 04/30/25 10:10 Respiratory Rate 24 H 04/30/25 10:10 Blood Pressure 137/66 H 04/30/25 10:10 Pulse Oximetry (%) 94 L 04/30/25 10:10 Oxygen Delivery Method Nasal Cannula 04/30/25 10:10 Oxygen Flow Rate 6 04/30/25 10:10 Shortness of Breath / Dyspnea MDM Narrative MDM Narrative:: Cherise Doshi am scribing for and in the presence of Dr. Helm. 65 year old male with history of COPD (on 4L home O2), HFpEF (55-60%), AFib, hypertension, hyperlipidemia, and status post CABG presented to the ED for evaluation of shortness of breath. The patient reports that he was discharged from the hospital just 1 week ago for similar symptoms, but his condition has progressively worsened this morning. Per medics, the patient was visibly working to breathe upon arrival. Chest xray shows significant pneumonia on the left. VBG shows PCO2 of 102, indicating significant CO2 retention, likely secondary to COPD exacerbation. In the ED, the patient was treated with albuterol, Atrovent, magnesium, and levofloxacin for acute management of his COPD exacerbation and pneumonia. The hospitalist team was consulted for admission. Patient data External records reviewed:: [facility] [place] previous records (I reviewed admission from through 04/18/2025 for acute on chronic respiratory failure with hypoxia and hypercapnia. ) and EMS form Clinical information provided by:: patient and EMS Social determinants that could affect healthcare access:: other (specify) (Tobacco smoker ) Patient has the following chronic illnesses:: COPD on 4L home O2, multiple admissions and intubation (most recently intubated 03/16/2025), HFpEF 55-60% 03/2025, s/p CABG, AFib, hypertension, hyperlipidemia How is presenting disease/condition affected by chronic disease/condition?: exacerbated by Evaluation data The following diagnostics were reviewed and interpreted by me:: lab results, radiology exam(s) and EKG tracing(s) (NSR, HR 98, intraventricular conduction delay, no STEMI. ) Lab and/or radiology exams considered but not ordered:: None Interpretation Summary: Ordering Physician: Geoffrey Helm MD Date of Service: 04/30/25 Procedure(s): XR chest 1V portable Accession Number(s): [id number] cc: Geoffrey Helm MD; Thanh Kevin MD; NO PRIMARY/FAMILY,PHYSICIAN~ Examination: AP chest single view Technique one AP portable semiupright chest single view Date and time: April 30, 10:29 AM Comparison April 13, 2025 Indications: Chest pain shortness of breath beginning 3 days ago. Findings: Pneumonia left base with left pleural fluid Mild enlargement cardiac contour with mild vascular congestion. No leela pulmonary edema Impression: Significant pneumonia left base Mild to moderate left pleural fluid Dictated By: Thanh Kevin MD Signed By: <Electronically signed by Thanh Kevin MD in OV> 04/30/25 1052 Medications / Prescriptions Medications or Prescriptions considered but not ordered:: None Medication administrations:: Medication Administration History Acetaminophen (Acetaminophen 325 Mg Tablet) 650 mg PO Q6H PRN PRN Reason: Fever >100.4 or pain Stop: 05/30/25 13:41 Albuterol/Ipratropium (Albuterol/Ipratropium (Duoneb) Rt Marita 3 Ml Nebu) 3 ml INH Q2HR PRN PRN Reason: SHORTNESS OF BREATH OR WHEEZE Stop: 05/30/25 13:41 Docusate Sodium (Docusate Sod 100 Mg Capsule) 100 mg PO QDAY PRN; Protocol PRN Reason: CONSTIPATION Stop: 05/30/25 13:41 Enoxaparin Sodium (Enoxaparin Sod Inj 40 Mg/0.4 Ml Syringe) 40 mg SC QDAY FREDIS Stop: 05/15/25 08:59 Ceftriaxone Sodium/Dextrose (Rocephin/D5w 1gm Iv Premix) 1 gm in 50 mls @ 100 mls/hr IV QDAY FREDIS Stop: 05/07/25 13:45 Last Admin: 04/30/25 14:34 Dose: 100 mls/hr Documented By: ER Azithromycin 250 mg/ Sodium (Chloride) 250 mls @ 250 mls/hr IV QDAY [facility] Stop: 05/08/25 08:59 Methylprednisolone Sodium Succinate (Methylprednisolone Sod Succ 62.5 Mg/Ml 2ml Vial) 125 mg IVP DAILY [facility] Stop: 05/05/25 13:59 Last Admin: 04/30/25 14:32 Dose: 125 mg Documented By: ER Ondansetron HCl (Ondansetron Inj 2 Mg/Ml Inj 2 Ml) 4 mg IVP Q6H PRN; Protocol PRN Reason: NAUSEA OR VOMITING Stop: 05/30/25 13:41 Sennosides (Senna Tablet) 1 tab PO QDAY PRN; Protocol PRN Reason: constipation Stop: 05/30/25 13:41 Discontinued Medications Albuterol (Albuterol Rt 2.5 Mg/3 Ml Nebu) 5 mg INH X1 ONE Stop: 04/30/25 10:18 Last Admin: 04/30/25 12:28 Dose: Not Given Documented By: NorbertV Non-Admin Reason: Duplicate Medication on eMAR Albuterol (Albuterol Rt 2.5 Mg/0.5 Ml Nebu) 5 mg INH X1 ONE Stop: 04/30/25 10:31 Last Admin: 04/30/25 10:34 Dose: 5 mg Documented By: JV Magnesium Sulfate/Dextrose (Magnesium Sulfate Ivpb) 1 gm in 100 mls @ 100 mls/hr IV X1 ONE Stop: 04/30/25 11:16 Last Infusion: 04/30/25 11:32 Dose: Infused Documented By: Admin: 04/30/25 10:32 Dose: 100 mls/hr Documented By: ER Levofloxacin/Dextrose (Levaquin Ivpb) 500 mg in 100 mls @ 100 mls/hr IV X1 ONE Stop: 04/30/25 13:37 Azithromycin 500 mg/ Sodium (Chloride) 250 mls @ 250 mls/hr IV X1 ONE Stop: 04/30/25 14:46 Ipratropium [place] (Ipratropium Rt 0.5 Mg/ 2.5 Ml Nebu) 0.5 mg INH X1 ONE Stop: 04/30/25 10:18 Last Admin: 04/30/25 10:34 Dose: 0.5 mg Documented By: NorbertV Prednisone (Prednisone 20 Mg Tablet) 40 mg PO QDAY FREDIS Stop: 05/06/25 08:59 See above Consultations Consultation(s) initiated? (list below): No Diagnosis Shortness of Breath Differential Diagnosis: acute exacerbation of chronic obstructive airways disease, congestive heart failure, community acquired pneumonia, asthma with exacerbation and pulmonary embolism Most likely diagnosis given after review of the tests above:: Pneumathemia Acute hypercapnic respiratory failure Admission Indicated Admission indicated?: indicated Admission Request Was there a request for admission?: Yes Admission Attestation Admission request attestation: Discussed case with [] from Hospitalist service regarding admission. Discussed patients ED course, exam findings, labs, and radiology results. The Hospitalist [agrees,declines] to accept the patient for admission. Disposition Plan Disposition Plan: Admit Critical Care Time Critical Care Time Critical Care Time: Yes Total Critical Care Time (min.): 35 Attestation: The high probability of sudden, clinically significant deterioration in the patient's condition required the highest level of my preparedness to intervene urgently. The services I provided to this patient were to treat and/or prevent clinically significant deterioration. Services included the following: chart data review, reviewing nursing notes and/or old charts, documentation time, party plan sales consultant collaboration regarding findings and treatment options, medication orders and management, direct patient care, vital sign assessments and ordering, interpreting and reviewing diagnostic studies and lab tests. Aggregate critical care time includes only time during which I was engaged in work directly related to the patient's care, as described above, whether at bedside or elsewhere in the Emergency Department. It did not include time spent performing other reported procedures or the services of residents, students, nurses or physician assistants. Discharge Plan Plan Patient Disposition: Admit Acute Care w/in Hospital Problem List Clinical Impression: Pneumathemia, Acute hypercapnic respiratory failure
[2025-04-30] MEDS: ALBUTEROL RT 2.5 MG/0.5 ML NEBU 5 MG INH (10:34)
[2025-04-30] MEDS: IPRATROPIUM RT 0.5 MG/ 2.5 ML NEBU INH (10:34)
[2025-04-30 10:37] LABS: Base Excess, Venous 20 (-3-3); O2 Saturation, Venous 89 % (96-97); PCO2, Venous 102 mmHg (36-56); PO2, Venous 52 mmHg (15-58); pH, Venous 7.31 (7.33-7.66)
[2025-04-30 10:43] LABS: Basophils # (Auto) 0.0 Thou/mm3 (0.0-0.2); Basophils % (Auto) 0 % (0-2.5); Eosinophils # (Auto) 0.0 Thou/mm3 (0.0-0.5); Eosinophils % (Auto) 1 % (0-10); Hematocrit 40.0 % (41.0-53.0); Hemoglobin 12.3 g/dL (13.5-16.0); Immature Granulocytes Auto 0.09 Thou/mm3 (0.00-0.00); Lymphocytes # (Auto) 0.6 Thou/mm3 (1.0-4.8); Lymphocytes % (Auto) 10 % (10-50); Mean Corpuscular HGB Conc 30.8 g/dl (31.0-37.0); Mean Corpuscular Hemoglobin 30.7 pg (25.0-35.0); Mean Corpuscular Volume 100 fL (80-100); Monocytes # (Auto) 0.6 Thou/mm3 (0.0-0.8); Monocytes % (Auto) 10 % (0-12); Neutrophils # (Auto) 5.0 Thou/mm3 (1.8-7.7); Neutrophils % (Auto) 78 % (37-80); Nucleated Red Blood Cell # 0.00 Thou/mm3 (0.00-0.00); Nucleated Red Blood Cell % 0 /100 WBC (0); Platelet Count 109 Thou/mm3 (140-440); RDW Standard Deviation 53.1 fL (35.1-43.9); Red Blood Count 4.01 Miln/mm3 (4.50-5.90); White Blood Count 6.4 Thou/mm3 (3.8-10.6)
[2025-04-30 11:09] LABS: Alanine Aminotransferase 12 U/L (10-49); Albumin, Serum 3.7 gm/dL (3.4-4.8); Albumin/Globulin Ratio 1.6 (1.2-2.2); Alkaline Phosphatase 47 U/L (46-116); Anion Gap 12 (7-16); Aspartate Amino Transferase 12 U/L (0-34); BUN/Creatinine Ratio 13 Ratio (12-20); Bilirubin,Total 0.3 mg/dL (0.3-1.2); Blood Urea Nitrogen 8 mg/dL (9-23); Calcium 8.8 mg/dL (8.3-10.6); Calcium (Corrected) 9.0 mg/dL (8.5-10.1); Carbon Dioxide > 40.0 mMol/L (20.0-31.0); Chloride 94 mMol/L (98-107); Creatinine (Component) 0.6 mg/dL (0.6-1.3); Globulin 2.3 gm/dL (2.3-3.5); Glucose 122 mg/dL (74-106); Magnesium 2.0 mg/dL (1.6-2.6); Osmolality,Calculated 289 (275-295); Potassium 4.4 mMol/L (3.4-5.1); Sodium 146 mMol/L (136-145); Total Protein 6.0 gm/dL (5.7-8.2); Troponin I < 0.020 ng/mL (0.0-0.045); eGFR > 60 See Note
[2025-04-30 11:18] LABS: B-Type Natriuretic Peptide 58 pg/mL (0-100)
[2025-04-30 11:45] LABS: D-Dimer 1020 ng/mL (<600)
[2025-04-30 13:54] LABS: Base Excess 19 (-3-3); HCO3 53 mEq/L (20-26); Inspired O2, VO2 Liters 4 L/min; Inspired Oxygen, FIO2 21 %; O2 Saturation 95 % (91-98); PCO2 134 mmHg (32.0-48.0); PO2 79 mmHg (83-108); pH, Arterial 7.21 (7.35-7.45)
[2025-04-30 14:13] LABS: Allen Test Performed/OK; Puncture Site Right Radial
[2025-04-30] MEDS: MethylPREDNISolone SOD SUCC 62.5 MG/ML 2ML VIAL 125 MG IVP (14:32)
[2025-04-30] MEDS: cefTRIAXone/D5w 1gm IV premix 1 GM/50 ML BAG IV (14:34)
[2025-04-30] MEDS: AZITHROMYCIN INJ 500 MG in SODIUM CHLORIDE 0.9% 250 ML 250 ML 250 MG IV (15:17)
[2025-04-30 16:30] LABS: Base Excess 18 (-3-3); HCO3 52 mEq/L (20-26); Inspired Oxygen, FIO2 50 %; O2 Saturation 93 % (91-98); PCO2 134 mmHg (32.0-48.0); PO2 67 mmHg (83-108); pH, Arterial 7.20 (7.35-7.45)
[2025-04-30 16:33] LABS: Allen Test Not Performed; Puncture Site Site Not Noted
[2025-04-30] MEDS: FUROSEMIDE INJ 10 MG/ML 4ML VIAL 40 MG IVP (16:35)
[2025-04-30] MEDS: LEVOFLOXACIN/D5W 500 MG IVPB 500 MG/100 ML BAG 100 MG IV (16:36)
[2025-04-30] MEDS: CEFEPIME INJ 2 GM in SODIUM CHLORIDE 0.9% (Popper) 50 ML IV (17:52)
[2025-04-30] MEDS: ALBUTEROL/IPRATROPIUM (Duoneb) RT SOL 3 ML NEBU INH ×2 (18:33→21:52)
--- NOTE | 2025-04-30 18:55 | ESHP_ITS ---
Documentation for date of: 04/30/25 [facility] History of Present Illness Chief complaint: Shortness of Breath History of present illness: This is a 65-year-old male with severe COPD on 4L home oxygen, HFpEF (EF 55?60%), s/p CABG, AFib, hypertension, hyperlipidemia, chronic tobacco use (1 PPD), and alcohol use disorder. He was discharged one week ago from this facility after treatment for hypercapnic respiratory failure and left lower lobe pneumonia, with counseling for BiPAP compliance and smoking cessation. Today he was [facility] from home for worsening shortness of breath that started again this morning. He reported that he vomited and was having a hard time breathing before EMS arrived. When we tried waking him up and speaking with him at bedside, he was somnolent, not easily arousable, lying with neck turned to the side and foam noted at the mouth. Per EMS, he was working hard to breathe at home ED Course In the ED, patient was found in visible respiratory distress. Initial VBG showed CO2 retention. ABG showed pH 7.2, CO2 134, HCO3 52, concerning for severe hypercapnia. Chest X-ray revealed significant left base pneumonia with mild to moderate left pleural effusion. Patient was placed on BiPAP, but it was not properly fitted initially, RT was called to adjust.? Review of Systems ROS Unobtainable: unobtainable due to mental status Past Medical History NEUROLOGIC: Positive Seizures CARDIAC: Positive Cardiac Disorders, Atrial Fibrillation, Hypercholesterolemia, Congestive Heart Failure and Hypertension RESPIRATORY: Positive Chronic Obstructive Pulmonary Disease (COPD), Asthma and Pneumonia GASTROINTESTINAL: Positive Obesity GENITOURINARY: Positive Genitourinary Disorders PSYCHO/SOCIAL: Positive Recreational Drug Use and Anxiety OTHER HISTORY: Positive Falls Surgical History Positive Open Heart Surgery and Coronary Artery Bypass Graft Social: Patient states that he is a current pack-a-day smoker. He is a heavy drinker. The past 40 years and usually drinks 3 beers per day. Last drink unknown Family history: Nonpertinent Allergies: NKDA . Exam Vital Signs Temp Pulse Resp BP Pulse Ox O2 Del Method O2 Flow Rate 97.8 F 81 26 H 148/69 H 95 BiPAP 3 04/30/25 18:31 04/30/25 18:34 04/30/25 18:34 04/30/25 18:31 04/30/25 18:34 04/30/25 16:27 04/30/25 14:20 FiO2 50 04/30/25 18:34 Narrative Exam General: Somnolent, difficult to arouse, foamy saliva at mouth, neck flexed HEENT: Subheoric keratoses diffusely over face Lungs: Diminished breath sounds bilaterally, worse on left; no obvious wheezes/crackles appreciated due to poor effort Heart: RRR, no murmurs Abdomen: Soft, NT, ND Extremities: 2+ bilateral LE edema with cracked dry skin Neuro: Limited, moving all extremities to pain, not following commands Results: Labs 05/02/25 06:07 05/02/25 06:07 Labs: Short CBC 04/30/25 Range/Units 10:27 WBC 6.4 (3.8-10.6) Thou/mm3 Hgb 12.3 L (13.5-16.0) g/dL Hct 40.0 L (41.0-53.0) % Plt Count 109 L (140-440) Thou/mm3 BMP 04/30/25 10:27 Sodium 146 H Potassium 4.4 Chloride 94 L Carbon Dioxide > 40.0 H BUN 8 L Creatinine 0.6 Glucose 122 H Calcium 8.8 Cardiac Enzymes 04/30/25 Range/Units 10:27 Troponin I < 0.020 (0.0-0.045) ng/mL Liver Function 04/30/25 Range/Units 10:27 Total Bilirubin 0.3 (0.3-1.2) mg/dL AST 12 (0-34) U/L ALT 12 (10-49) U/L Alkaline Phosphatase 47 (46-116) U/L Albumin 3.7 (3.4-4.8) gm/dL ABG Interpretation ABG results: 04/30/25 04/30/25 04/30/25 10:27 13:47 16:29 ABG pH 7.21 L 7.20 L ABG pCO2 134 H* 134 H* ABG pO2 79 L 67 L ABG HCO3 53 H 52 H ABG O2 Saturation 95 93 ABG Base Excess 19 H 18 H VBG pH 7.31 L VBG pCO2 102 H VBG pO2 52 VBG Base Excess 20 H Quality Measures Quality Measures none Advance care planning discussed with:: patient Medications Home Medications and Allergies Allergies Allergy/AdvReac Type Severity Reaction Status Date / Time No Known Allergies Allergy Verified 04/13/25 07:30 Visit Medications Acetaminophen (Acetaminophen 325 Mg Tablet) 650 mg PO Q6H PRN PRN Reason: Fever >100.4 or pain Stop: 05/30/25 13:41 Albuterol/Ipratropium (Albuterol/Ipratropium (Duoneb) Rt Marita 3 Ml Nebu) 3 ml INH Q4H FREDIS Stop: 05/30/25 16:14 Last Admin: 04/30/25 18:33 Dose: 3 ml Docusate Sodium (Docusate Sod 100 Mg Capsule) 100 mg PO QDAY PRN; Protocol PRN Reason: CONSTIPATION Stop: 05/30/25 13:41 Enoxaparin Sodium (Enoxaparin Sod Inj 40 Mg/0.4 Ml Syringe) 40 mg SC QDAY FREDIS Stop: 05/15/25 08:59 Furosemide (Furosemide Inj 10 Mg/Ml 4ml Vial) 40 mg IVP QDAY FREDIS Stop: 05/30/25 16:14 Last Admin: 04/30/25 16:35 Dose: 40 mg Azithromycin 250 mg/ Sodium (Chloride) 250 mls @ 250 mls/hr IV QDAY FREDIS Stop: 05/08/25 08:59 Cefepime HCl 2 gm/ Sodium (Chloride) 50 mls @ 100 mls/hr IV Q8HR FREDIS Stop: 05/07/25 16:10 Last Infusion: 04/30/25 18:25 Dose: Infused Methylprednisolone Sodium Succinate (Methylprednisolone Sod Succ 62.5 Mg/Ml 2ml Vial) 125 mg IVP DAILY FREDIS Stop: 05/05/25 13:59 Last Admin: 04/30/25 14:32 Dose: 125 mg Nicotine (Nicotine Patch 14 Mg/24 Hr Patch.Td24) 14 mg TOP QDAY FREDIS Stop: 05/31/25 08:59 Ondansetron HCl (Ondansetron Inj 2 Mg/Ml Inj 2 Ml) 4 mg IVP Q6H PRN; Protocol PRN Reason: NAUSEA OR VOMITING Stop: 05/30/25 13:41 Sennosides (Senna Tablet) 1 tab PO QDAY PRN; Protocol PRN Reason: constipation Stop: 05/30/25 13:41 Discontinued Medications Albuterol (Albuterol Rt 2.5 Mg/3 Ml Nebu) 5 mg INH X1 ONE Stop: 04/30/25 10:18 Last Admin: 04/30/25 12:28 Dose: Not Given Albuterol (Albuterol Rt 2.5 Mg/0.5 Ml Nebu) 5 mg INH X1 ONE Stop: 04/30/25 10:31 Last Admin: 04/30/25 10:34 Dose: 5 mg Albuterol/Ipratropium (Albuterol/Ipratropium (Duoneb) Rt Marita 3 Ml Nebu) 3 ml INH Q2HR PRN PRN Reason: SHORTNESS OF BREATH OR WHEEZE Stop: 05/30/25 13:41 Magnesium Sulfate/Dextrose (Magnesium Sulfate Ivpb) 1 gm in 100 mls @ 100 mls/hr IV X1 ONE Stop: 04/30/25 11:16 Last Infusion: 04/30/25 11:32 Dose: Infused Levofloxacin/Dextrose (Levaquin Ivpb) 500 mg in 100 mls @ 100 mls/hr IV X1 ONE Stop: 04/30/25 13:37 Last Infusion: 04/30/25 17:36 Dose: Infused Ceftriaxone Sodium/Dextrose (Rocephin/D5w 1gm Iv Premix) 1 gm in 50 mls @ 100 mls/hr IV QDAY FREDIS Stop: 05/07/25 13:45 Last Infusion: 04/30/25 15:05 Dose: Infused Azithromycin 500 mg/ Sodium (Chloride) 250 mls @ 250 mls/hr IV X1 ONE Stop: 04/30/25 14:46 Last Infusion: 04/30/25 16:17 Dose: Infused Ipratropium Escalon (Ipratropium Rt 0.5 Mg/ 2.5 Ml Nebu) 0.5 mg INH X1 ONE Stop: 04/30/25 10:18 Last Admin: 04/30/25 10:34 Dose: 0.5 mg Prednisone (Prednisone 20 Mg Tablet) 40 mg PO QDAY FREDIS Stop: 05/06/25 08:59 Assessment & Plan Plan 65M with severe COPD on home O2, HFpEF, s/p CABG, Afib, active smoker, presenting with severe hypercapnic respiratory failure and recurrent left lower lobe pneumonia. #Hypercapnic Respiratory Failure * Acute on chronic CO2 retention likely due to COPD exacerbation with poor BiPAP compliance. Plan: * On BiPAP, ensure mask fits well, RT to monitor. * Serial ABGs to trend. * If worsening mental status or unable to protect airway, escalate to ICU for possible intubation. #Pneumonia / COPD Exacerbation * CXR with significant LLL pneumonia, mild-moderate left pleural effusion. Plan: * Treat with Azithromycin + Cefepime. * Continue systemic steroids if not contraindicated. * Nebulizers as needed if tolerated. * Monitor for worsening effusion, consider repeat imaging if no improvement. #Volume Overload / HFpEF History of HFpEF LE edema worse than previous admission, echo on 03/27/2025 revealed Normal LV size and function with an estimated EF of 55 to 60%. Grade II Diastolic dysfunction. Plan: * Diuresis with Lasix started. * Monitor daily weights, I/Os, electrolytes. * Assess for signs of worsening CHF. #Tobacco Use Disorder * Nicotine patch started. * Reinforce cessation counseling when patient more alert. #Skin Care * Cracked LE skin ? apply barrier cream/emollients. * Monitor for skin breakdown or cellulitis Health maintenance: Dispo admit to IM, monitor closely for possible ICU transfer Diet: NPO DVT PPx: On Lovenox GI PPx: N/A Code: Full ----- Plan discussed with attending physician Dr. Gonzales Brown MD PGY-1 Internal Medicine Attending Provider Attestation/Addendum I, Kristina Rolon DO, attest that I was physically present for the malone portions of the service and evaluated the patient with the resident and I reviewed and discussed the case with the resident and agree with the resident's findings and plans of care as documented above Patient is a 65-year-old male well-known to service with past medical history of severe COPD on 4 L nasal cannula at home, chronic respiratory failure, heart failure preserved ejection fraction of 55 to 60%, CAD status post CABG, A-fib, hypertension, hyperlipidemia, chronic tobacco use, drug use and alcohol use. Patient has a history of noncompliance with his BiPAP at home. Patient was recently discharged 2 weeks ago for acute encephalopathy, acute COPD exacerbation and acute hypercapnic respiratory failure. In the ED, patient is quite lethargic, but arousable with verbal and tactile stimuli. Patient endorses having shortness of breath. He appears to have facial and peripheral edema. Patient appears to have poor hygiene and disheveled. ABG done in the ED shows pH of 7.[address] patient on BiPAP and repeat ABG. On last admission, patient did well with C-spine collar while on BiPAP to maintain open airway. Patient reported some nausea and vomiting which prompted him to come to the ER per nursing. Patient is somnolent but able to say a few words and quickly dozes off during exam. Will admit patient to telemetry for further workup and medical management of acute COPD exacerbation resulting in acute hypercapnic respiratory failure and cover for left lower lobe pneumonia. Will also start on IV Lasix due to concern for of acute HFpEF exacerbation.
[2025-04-30 20:23] LABS: Allen Test Performed/OK; Base Excess 23 (-3-3); HCO3 56 mEq/L (20-26); Inspired Oxygen, FIO2 50 %; O2 Saturation 91 % (91-98); PCO2 124 mmHg (32.0-48.0); PO2 60 mmHg (83-108); Puncture Site Left Radial; pH, Arterial 7.27 (7.35-7.45)
[2025-05-01] VITALS (16 sets, daily range): BP systolic 101–162; BP diastolic 67–81; PULSE 64–99; RESP 14–42; TEMP 36.1–36.5; O2SAT 92–99; BMI 36.3
[2025-05-01] MEDS: ALBUTEROL/IPRATROPIUM (Duoneb) RT SOL 3 ML NEBU INH ×6 (01:28→22:43)
[2025-05-01 06:02] LABS: Base Excess 25 (-3-3); HCO3 56 mEq/L (20-26); Inspired Oxygen, FIO2 60 %; O2 Saturation 92 % (91-98); PCO2 98 mmHg (32.0-48.0); PO2 63 mmHg (83-108); pH, Arterial 7.36 (7.35-7.45)
[2025-05-01 06:04] LABS: Allen Test Performed/OK; Puncture Site Right Radial
[2025-05-01] MEDS: CEFEPIME INJ 2 GM in SODIUM CHLORIDE 0.9% (Popper) 50 ML IV ×3 (06:07→21:31)
[2025-05-01] MEDS: ENOXAPARIN SOD INJ 40 MG/0.4 ML SYRINGE SC (08:10)
[2025-05-01] MEDS: FUROSEMIDE INJ 10 MG/ML 4ML VIAL 40 MG IVP (08:11)
[2025-05-01] MEDS: NICOTINE PATCH 14 MG/24 HR PATCH.TD24 TOP (08:11)
[2025-05-01] MEDS: MethylPREDNISolone SOD SUCC 62.5 MG/ML 2ML VIAL 125 MG IVP (08:11)
[2025-05-01] MEDS: AZITHROMYCIN INJ 500 MG in SODIUM CHLORIDE 0.9% 250 ML 250 ML 250 MG IV (08:23)
--- NOTE | 2025-05-01 11:23 | PC.SS ---
Patient Padilla Lowe is a 65 Year old male admitted for SOB. SS contacted patient's son, Daniel to complete initial assessment and to discuss discharge planning.? Daniel confirmed demographic information.? He reports patient resides with roommates at home. Patient utilizes a wheelchair for mobility.? Patient utilizes home oxygen at 4L.?Daniel reported patient is able to complete ADL?s independently.? Daryn Lowe is surrogate medical decision .? Patient?s PCP is Dr. Jones, [facility].? Pharmacy of choice is [facility].? Patient's son reports that patient will possibly discharge back home, he informed SS that he would like Patient to discharge to SNF however knows he will refuse. Patient is not alert at the time to decide on Discharge plan. SS will meet with patient once he is more alert and oriented. SS will stand by for further needs. Next of Kin: Daryn Lowe D/C Plan: Pending
--- NOTE | 2025-05-01 15:18 | PC.SS ---
SS follow up note; Per Dr. Pacheco Fan, patient is still confused at the time, possible discharge tomorrow.
[2025-05-01 15:22] LABS: Basophils # (Auto) 0.0 Thou/mm3 (0.0-0.2); Basophils % (Auto) 0 % (0-2.5); Eosinophils # (Auto) 0.0 Thou/mm3 (0.0-0.5); Eosinophils % (Auto) 0 % (0-10); Hematocrit 38.2 % (41.0-53.0); Hemoglobin 12.2 g/dL (13.5-16.0); Immature Granulocytes Auto 0.06 Thou/mm3 (0.00-0.00); Lymphocytes # (Auto) 0.3 Thou/mm3 (1.0-4.8); Lymphocytes % (Auto) 4 % (10-50); Mean Corpuscular HGB Conc 31.9 g/dl (31.0-37.0); Mean Corpuscular Hemoglobin 30.3 pg (25.0-35.0); Mean Corpuscular Volume 95 fL (80-100); Monocytes # (Auto) 0.1 Thou/mm3 (0.0-0.8); Monocytes % (Auto) 2 % (0-12); Neutrophils # (Auto) 6.6 Thou/mm3 (1.8-7.7); Neutrophils % (Auto) 93 % (37-80); Nucleated Red Blood Cell # 0.00 Thou/mm3 (0.00-0.00); Nucleated Red Blood Cell % 0 /100 WBC (0); Platelet Count 98 Thou/mm3 (140-440); RDW Standard Deviation 49.1 fL (35.1-43.9); Red Blood Count 4.02 Miln/mm3 (4.50-5.90); White Blood Count 7.1 Thou/mm3 (3.8-10.6)
[2025-05-01 15:32] LABS: INR 1.1 (0.9-1.3); Prothrombin Time 11.6 Seconds (9.0-12.2)
--- NOTE | 2025-05-01 15:42 | ESPR_ITS ---
Documentation for date of: 05/01/25 Subjective Subjective Interval history: No overnight events. Patient seen and examined at bedside, irritable, somewhat lethargic but more awake than previous examination. Noncompliant with questioning, but endorses hunger and shortness of breath. One-to-one sitter because patient has repeatedly pulled out IV lines. Continue on BiPAP for now. Exam Vital Signs Temp Pulse Resp BP Pulse Ox O2 Del Method O2 Flow Rate 97.6 F 65 32 H 162/81 H 96 BiPAP 3 05/01/25 12:00 05/01/25 14:50 05/01/25 14:50 05/01/25 12:00 05/01/25 14:50 05/01/25 12:00 04/30/25 14:20 FiO2 60 05/01/25 14:50 Narrative Exam General: Lethargic, irritable. HEENT: Subheoric keratoses diffusely over face Lungs: Diminished breath sounds bilaterally, worse on left; no obvious wheezes/crackles appreciated due to poor effort Heart: RRR, no murmurs Abdomen: Soft, NT, ND Extremities: 2+ bilateral LE edema with cracked dry skin ROM and strength intact. Neuro: No focal neurological deficits. Objective Labs 05/02/25 06:07 05/02/25 06:07 Labs: Laboratory Results - last 24 hr 04/30/25 04/30/25 05/01/25 16:29 20:19 05:52 WBC RBC Hgb Hct MCV MCH MCHC RDW Std Deviation Plt Count Neut % (Auto) Lymph % (Auto) Jefferson % (Auto) Eos % (Auto) Baso % (Auto) Neut # (Auto) Lymph # (Auto) Jefferson # (Auto) Eos # (Auto) Baso # (Auto) Immature Gran # (Auto) Absolute Nucleated RBC Immature Gran % Nucleated RBC % PT INR Puncture Site Site Not Noted Left Radial Right Radial ABG pH 7.20 L 7.27 L 7.36 ABG pCO2 134 H* 124 H* D 98 H* D ABG pO2 67 L 60 L 63 L ABG HCO3 52 H 56 H 56 H ABG O2 Saturation 93 91 92 ABG Base Excess 18 H 23 H 25 H FiO2 50 50 60 05/01/25 15:05 WBC 7.1 RBC 4.02 L Hgb 12.2 L Hct 38.2 L MCV 95 MCH 30.3 MCHC 31.9 RDW Std Deviation 49.1 H Plt Count 98 L Neut % (Auto) 93 H Lymph % (Auto) 4 L Jefferson % (Auto) 2 Eos % (Auto) 0 Baso % (Auto) 0 Neut # (Auto) 6.6 Lymph # (Auto) 0.3 L Jefferson # (Auto) 0.1 Eos # (Auto) 0.0 Baso # (Auto) 0.0 Immature Gran # (Auto) 0.06 H Absolute Nucleated RBC 0.00 Immature Gran % 1 H Nucleated RBC % 0 PT 11.6 INR 1.1 Puncture Site ABG pH ABG pCO2 ABG pO2 ABG HCO3 ABG O2 Saturation ABG Base Excess FiO2 ABG Interpretation ABG results: 04/30/25 04/30/25 04/30/25 10:27 13:47 16:29 ABG pH 7.21 L 7.20 L ABG pCO2 134 H* 134 H* ABG pO2 79 L 67 L ABG HCO3 53 H 52 H ABG O2 Saturation 95 93 ABG Base Excess 19 H 18 H VBG pH 7.31 L VBG pCO2 102 H VBG pO2 52 VBG Base Excess 20 H 04/30/25 05/01/25 20:19 05:52 ABG pH 7.27 L 7.36 ABG pCO2 124 H* D 98 H* D ABG pO2 60 L 63 L ABG HCO3 56 H 56 H ABG O2 Saturation 91 92 ABG Base Excess 23 H 25 H VBG pH VBG pCO2 VBG pO2 VBG Base Excess Quality Measures Quality Measures none Advance care planning discussed with:: patient Assessment & Plan Assessment Current Active Medications: Generic Name Dose Route Start Last Admin Trade Name Freq PRN Reason Stop Dose Admin Acetaminophen 650 mg 04/30/25 13:42 Acetaminophen 325 Mg Tablet PO 05/30/25 13:41 Q6H PRN Fever >100.4 or pain Albuterol/Ipratropium 3 ml 05/01/25 06:00 05/01/25 14:44 Albuterol/Ipratropium (Duoneb) Rt Marita 3 Ml Nebu INH 05/31/25 05:59 3 ml Q4H FREDIS Administration Docusate Sodium 100 mg 04/30/25 13:42 Docusate Sod 100 Mg Capsule PO 05/30/25 13:41 QDAY PRN CONSTIPATION Protocol Enoxaparin Sodium 40 mg 05/01/25 09:00 05/01/25 08:10 Enoxaparin Sod Inj 40 Mg/0.4 Ml Syringe SC 05/15/25 08:59 40 mg QDAY FREDIS Administration Furosemide 40 mg 04/30/25 16:15 05/01/25 08:11 Furosemide Inj 10 Mg/Ml 4ml Vial IVP 05/30/25 16:14 40 mg QDAY FREDIS Administration Azithromycin 500 mg/ Sodium 250 mls @ 250 mls/hr 05/01/25 09:00 05/01/25 14:12 Chloride IV 05/08/25 08:59 Infused QDAY FREDIS Infusion Cefepime HCl 2 gm/ Sodium 50 mls @ 100 mls/hr 04/30/25 16:11 05/01/25 14:27 Chloride IV 05/07/25 16:10 100 mls/hr Q8HR FREDIS Administration Methylprednisolone Sodium Succinate 125 mg 04/30/25 14:00 05/01/25 08:11 Methylprednisolone Sod Succ 62.5 Mg/Ml 2ml Vial IVP 05/05/25 13:59 125 mg DAILY FREDIS Administration Nicotine 14 mg 05/01/25 09:00 05/01/25 08:11 Nicotine Patch 14 Mg/24 Hr Patch.Td24 TOP 05/31/25 08:59 14 mg QDAY FREDIS Administration Ondansetron HCl 4 mg 04/30/25 13:42 Ondansetron Inj 2 Mg/Ml Inj 2 Ml IVP 05/30/25 13:41 Q6H PRN NAUSEA OR VOMITING Protocol Sennosides 1 tab 04/30/25 13:42 Senna Tablet PO 05/30/25 13:41 QDAY PRN constipation Protocol Plan 65M with severe COPD on home O2, HFpEF, s/p CABG, Afib, active smoker, presenting with severe hypercapnic respiratory failure and recurrent left lower lobe pneumonia. #Hypercapnic Respiratory Failure Acute on chronic CO2 retention likely due to COPD exacerbation with poor BiPAP compliance. Patient improving, more arousable, remains irritable and uncooperative. Plan: * On BiPAP, ensure mask fits well, RT to monitor. * Serial ABGs to trend. * If worsening mental status or unable to protect airway, escalate to ICU for possible intubation. #Pneumonia / COPD Exacerbation CXR with significant LLL pneumonia, mild-moderate left pleural effusion. Plan: * Treat with Azithromycin + Cefepime. * Continue systemic steroids if not contraindicated. * Nebulizers as needed if tolerated. * Monitor for worsening effusion, consider repeat imaging if no improvement. #Volume Overload / HFpEF History of HFpEF LE edema worse than previous admission, echo on 03/27/2025 revealed Normal LV size and function with an estimated EF of 55 to 60%. Grade II Diastolic dysfunction. Plan: * Diuresis with Lasix started. * Monitor daily weights, I/Os, electrolytes. * Assess for signs of worsening CHF. #Tobacco Use Disorder * Nicotine patch started. * Reinforce cessation counseling when patient more alert. #Skin Care * Cracked LE skin ? apply barrier cream/emollients. * Monitor for skin breakdown or cellulitis Health maintenance: Dispo admit to IM Diet: NPO DVT PPx: On Lovenox GI PPx: N/A Code: Full ----- Plan discussed with attending physician Dr. Gonzales Nguyen MD PGY-2 Attending Provider Attestation/Addendum I, Kristina Rolon DO, attest that I was physically present for the malone portions of the service and evaluated the patient with the resident and I reviewed and discussed the case with the resident and agree with the resident's findings and plans of care as documented above Patient seen and evaluated this AM. Diet had been ordered by night team, but patient remains on BIPAP. Will place patient back to NPO. Patient agitated because he is hungry and not being fed. Patient is upset and has removed his peripheral IVs. Continue with BiPap at this time. Patient noted to have rhonchi in b/l lung hein. Continue with IV lasix. Peripheral edema appears improved, 1+ pitting edema noted. Continue with steroids and breathing treatments.
[2025-05-01 17:17] LABS: Alanine Aminotransferase 11 U/L (10-49); Albumin, Serum 3.6 gm/dL (3.4-4.8); Albumin/Globulin Ratio 1.6 (1.2-2.2); Alkaline Phosphatase 41 U/L (46-116); Anion Gap 13 (7-16); Aspartate Amino Transferase 16 U/L (0-34); BUN/Creatinine Ratio 11 Ratio (12-20); Bilirubin,Total 0.4 mg/dL (0.3-1.2); Blood Urea Nitrogen 8 mg/dL (9-23); Calcium 9.1 mg/dL (8.3-10.6); Calcium (Corrected) 9.4 mg/dL (8.5-10.1); Carbon Dioxide > 40.0 mMol/L (20.0-31.0); Chloride 88 mMol/L (98-107); Creatinine (Component) 0.7 mg/dL (0.6-1.3); Estimated Creatinine Clearance 137.5 mL/min (>60); Globulin 2.3 gm/dL (2.3-3.5); Glucose 139 mg/dL (74-106); Magnesium 1.9 mg/dL (1.6-2.6); Osmolality,Calculated 281 (275-295); Phosphorous 2.1 mg/dL (2.4-5.1); Potassium 4.8 mMol/L (3.4-5.1); Sodium 141 mMol/L (136-145); Total Protein 5.9 gm/dL (5.7-8.2); eGFR > 60 See Note
[2025-05-02] VITALS (135 sets, daily range): BP systolic 76–162; BP diastolic 47–120; PULSE 54–205; RESP 7–110; TEMP 36.6–37.1; O2SAT 59–100
[2025-05-02] MEDS: ALBUTEROL/IPRATROPIUM (Duoneb) RT SOL 3 ML NEBU INH ×6 (03:24→22:00)
[2025-05-02 04:58] LABS: Base Excess 24 (-3-3); HCO3 51 mEq/L (20-26); Inspired Oxygen, FIO2 50 %; O2 Saturation 91 % (91-98); PCO2 64 mmHg (32.0-48.0); pH, Arterial 7.51 (7.35-7.45)
[2025-05-02 05:02] LABS: Allen Test Performed/OK; PO2 55 mmHg (83-108); Puncture Site Right Radial
[2025-05-02] MEDS: CEFEPIME INJ 2 GM in SODIUM CHLORIDE 0.9% (Popper) 50 ML IV (05:02)
--- NOTE | 2025-05-02 05:34 | EVENTNT_ITS ---
<Statement entered by Segun Narayan MD - 05/02/25 05:51> I have personally seen and examined the patient. I agree with the resident's assessment and plan as documented below. Segun Narayan DO PGY-2 Internal Medicine - GME Documentation for date of: 05/02/25 Event Note Event Note: At approximately 5:25 AM - 5:30 AM, a rapid response was called which turned into a code blue for patient Padilla Lowe. Vitals around the time were BP 99/70, Pulse 78, RR 22, Temp 98.4, SpO2 96 on BiPAP with O2 Flow Rate of 5 and FiO2 of 50. Primary nurse said something about a seizure but we think it is cardiac arrest 2/2 hypoxia. Chest compressions and epinephrine were delivered but patient ended up requiring intubation and was intubated. -Branden Balderas DO Internal Medicine, PGY-1 Per bedside sitter patient was wearing the BiPAP and sat up and then developed full body convulsions. Rapid response was initially called and while in a row ALLISON BUENROSTRO was called. ALLISON BUENROSTRO called at 0528 and CPR initiated immediately. Patient received 2 rounds of epinephrine and 1 amp of bicarb. Rhythm noted throughout code was pulseless electrical activity. ROSC achieved at 0538. Emergency room provider present at bedside and patient was successfully intubated with etomidate and succinylcholine. Chest x-ray confirmed ETT and NG tube placement. Etiology for loss of pulse likely secondary to worsening hypoxia versus aspiration from new onset seizures. Patient was immediately transported to the ICU and placed on mechanical ventilation. Stat ABG, CMP, CBC, mag, Phos, troponin, EKG, and lactic acid ordered. Dr. Ministerio MD
--- NOTE | 2025-05-02 05:41 | XR_ITS ---
Examination: AP chest single view TECHNIQUE: AP portable supine chest single view Date and time: May 02, 2025, 0548 hours Comparison April 30, 2025 INDICATIONS: Hypoxic respiratory failure postintubation. FINDINGS: Mild large cardiac contour Mild pneumonia left base with blunting of the left costophrenic angle Endotracheal tube tip 6.6 cm above Patricia. The orogastric tube is in the stomach, advance the orogastric tube 4 cm IMPRESSION: Left base pneumonia Advance the orogastric tube 4 cm
--- NOTE | 2025-05-02 05:57 | PD.RESHP ---
Documentation for date of: 05/02/25 Exam Vital Signs Temp Pulse Resp BP Pulse Ox O2 Del Method O2 Flow Rate 98.4 F 126 H 22 H 99/70 99 BiPAP 5 05/02/25 04:00 05/02/25 05:51 05/02/25 05:23 05/02/25 04:00 05/02/25 05:51 05/02/25 04:00 05/02/25 05:23 FiO2 100 05/02/25 05:51 Results: Labs 05/01/25 15:05 05/01/25 15:57 Labs: Short CBC 05/01/25 Range/Units 15:05 WBC 7.1 (3.8-10.6) Thou/mm3 Hgb 12.2 L (13.5-16.0) g/dL Hct 38.2 L (41.0-53.0) % Plt Count 98 L (140-440) Thou/mm3 BMP 05/01/25 15:57 Sodium 141 Potassium 4.8 Chloride 88 L Carbon Dioxide > 40.0 H BUN 8 L Creatinine 0.7 Glucose 139 H Calcium 9.1 Liver Function 05/01/25 Range/Units 15:57 Total Bilirubin 0.4 (0.3-1.2) mg/dL AST 16 (0-34) U/L ALT 11 (10-49) U/L Alkaline Phosphatase 41 L (46-116) U/L Albumin 3.6 (3.4-4.8) gm/dL ABG Interpretation ABG results: 04/30/25 04/30/25 04/30/25 10:27 13:47 16:29 ABG pH 7.21 L 7.20 L ABG pCO2 134 H* 134 H* ABG pO2 79 L 67 L ABG HCO3 53 H 52 H ABG O2 Saturation 95 93 ABG Base Excess 19 H 18 H VBG pH 7.31 L VBG pCO2 102 H VBG pO2 52 VBG Base Excess 20 H 04/30/25 05/01/25 05/02/25 20:19 05:52 04:50 ABG pH 7.27 L 7.36 7.51 H D ABG pCO2 124 H* D 98 H* D 64 H D ABG pO2 60 L 63 L 55 L* ABG HCO3 56 H 56 H 51 H ABG O2 Saturation 91 92 91 ABG Base Excess 23 H 25 H 24 H VBG pH VBG pCO2 VBG pO2 VBG Base Excess Quality Measures Quality Measures none Medications Home Medications and Allergies Allergies Allergy/AdvReac Type Severity Reaction Status Date / Time No Known Allergies Allergy Verified 04/13/25 07:30 Visit Medications Acetaminophen (Acetaminophen 325 Mg Tablet) 650 mg PO Q6H PRN PRN Reason: Fever >100.4 or pain Stop: 05/30/25 13:41 Albuterol/Ipratropium (Albuterol/Ipratropium (Duoneb) Rt Marita 3 Ml Nebu) 3 ml INH Q4H [facility] Stop: 05/31/25 05:59 Last Admin: 05/02/25 03:24 Dose: 3 ml Docusate Sodium (Docusate Sod 100 Mg Capsule) 100 mg PO QDAY PRN; Protocol PRN Reason: CONSTIPATION Stop: 05/30/25 13:41 Enoxaparin Sodium (Enoxaparin Sod Inj 40 Mg/0.4 Ml Syringe) 40 mg SC QDAY [facility] Stop: 05/15/25 08:59 Last Admin: 05/01/25 08:10 Dose: 40 mg Furosemide (Furosemide Inj 10 Mg/Ml 4ml Vial) 40 mg IVP QDAY [facility] Stop: 05/30/25 16:14 Last Admin: 05/01/25 08:11 Dose: 40 mg Azithromycin 500 mg/ Sodium (Chloride) 250 mls @ 250 mls/hr IV QDAY [facility] Stop: 05/08/25 08:59 Last Infusion: 05/01/25 14:12 Dose: Infused Cefepime HCl 2 gm/ Sodium (Chloride) 50 mls @ 100 mls/hr IV Q8HR [facility] Stop: 05/07/25 16:10 Last Admin: 05/02/25 05:02 Dose: 100 mls/hr Propofol (Diprivan Ivpb) 1,000 mg in 100 mls @ 3.421 mls/hr IV .Q24H PRN; Protocol PRN Reason: PER PROTOCOL Stop: 06/01/25 05:53 Fentanyl Citrate (Sublimaze Inj 2,500 Mcg/250 Ml Bag) 2,500 mcg in 250 mls @ 2.5 mls/hr IV .Q24H PRN; Protocol PRN Reason: PER PROTOCOL Stop: 05/07/25 05:54 Methylprednisolone Sodium Succinate (Methylprednisolone Sod Succ 62.5 Mg/Ml 2ml Vial) 125 mg IVP DAILY [facility] Stop: 05/05/25 13:59 Last Admin: 05/01/25 08:11 Dose: 125 mg Nicotine (Nicotine Patch 14 Mg/24 Hr Patch.Td24) 14 mg TOP QDAY [facility] Stop: 05/31/25 08:59 Last Admin: 05/01/25 08:11 Dose: 14 mg Ondansetron HCl (Ondansetron Inj 2 Mg/Ml Inj 2 Ml) 4 mg IVP Q6H PRN; Protocol PRN Reason: NAUSEA OR VOMITING Stop: 05/30/25 13:41 Sennosides (Senna Tablet) 1 tab PO QDAY PRN; Protocol PRN Reason: constipation Stop: 05/30/25 13:41 Discontinued Medications Albuterol (Albuterol Rt 2.5 Mg/3 Ml Nebu) 5 mg INH X1 ONE Stop: 04/30/25 10:18 Last Admin: 04/30/25 12:28 Dose: Not Given Albuterol (Albuterol Rt 2.5 Mg/0.5 Ml Nebu) 5 mg INH X1 ONE Stop: 04/30/25 10:31 Last Admin: 04/30/25 10:34 Dose: 5 mg Albuterol/Ipratropium (Albuterol/Ipratropium (Duoneb) Rt Marita 3 Ml Nebu) 3 ml INH Q2HR PRN PRN Reason: SHORTNESS OF BREATH OR WHEEZE Stop: 05/30/25 13:41 Albuterol/Ipratropium (Albuterol/Ipratropium (Duoneb) Rt Marita 3 Ml Nebu) 3 ml INH Q4H [facility] Stop: 05/30/25 16:14 Last Admin: 05/01/25 01:28 Dose: 3 ml Magnesium Sulfate/Dextrose (Magnesium Sulfate Ivpb) 1 gm in 100 mls @ 100 mls/hr IV X1 ONE Stop: 04/30/25 11:16 Last Infusion: 04/30/25 11:32 Dose: Infused Levofloxacin/Dextrose (Levaquin Ivpb) 500 mg in 100 mls @ 100 mls/hr IV X1 ONE Stop: 04/30/25 13:37 Last Infusion: 04/30/25 17:36 Dose: Infused Ceftriaxone Sodium/Dextrose (Rocephin/D5w 1gm Iv Premix) 1 gm in 50 mls @ 100 mls/hr IV QDAY [facility] Stop: 05/07/25 13:45 Last Infusion: 04/30/25 15:05 Dose: Infused Azithromycin 500 mg/ Sodium (Chloride) 250 mls @ 250 mls/hr IV X1 ONE Stop: 04/30/25 14:46 Last Infusion: 04/30/25 16:17 Dose: Infused Ipratropium Mercedes (Ipratropium Rt 0.5 Mg/ 2.5 Ml Nebu) 0.5 mg INH X1 ONE Stop: 04/30/25 10:18 Last Admin: 04/30/25 10:34 Dose: 0.5 mg Prednisone (Prednisone 20 Mg Tablet) 40 mg PO QDAY [facility] Stop: 05/06/25 08:59
--- NOTE | 2025-05-02 05:58 | ESOP_ITS ---
PROCEDURES: Procedure Date / Time 05/02/25 0566 Intubation Indication(s): acute Resp Failure and inability to protect airway Informed consent obtained: procedure done urgently Time out done, and the following verified: correct patient, side and site, procedure, patient position and implants and/or equipment Sedative: etomidate Mg given: 40 Paralytic: succinylcholine Mg given: 200 Laryngoscope: fiber optic video scope Assist device used: fiber optic device ET tube size: 7.5 ET tube uncuffed: No Tube secured depth (cm): 24 Tube secured location: teeth Tube placement confirmation: visualized tube passing through cords, equal breath sounds bilaterally, no breath sounds over epigastrium and confirmation by capnometry Patient tolerated procedure: well and no complications EBL(ml): 0 Intubation complications: none Additional comments: Procedure performed under supervision of Dr. Shabazz. Madi Serrato MD, PGY 3. Disclaimer: This note was dictated by speech recognition. Minor errors in telephone clerk telegraph office may be present due to voice recognition software.
--- NOTE | 2025-05-02 06:02 | ESCONSULT_ITS ---
HPI Data of Consult Consult date: 05/02/25 Requesting Physician: Kristina Rolon DO Admitting Provider: Kristina Rolon DO Attending Provider: Kristina Rolon DO Primary Care Provider: Physician No Primary/Family Consult Narrative Reason for consult: code blue History of present illness: Patient is a 65 years old male with PMH of severe COPD on 4L home oxygen, HFpEF (EF 55?60%), s/p CABG, AFib, hypertension, hyperlipidemia, chronic tobacco use (1 PPD), and alcohol use disorder was admitted to [facility] on 04/30/2025 due to AHRF, was started on breathing treatments, steroids and IV antibiotics. On 05/02 at 05:30AM rapid response was called due to patient being unresponsive, right prior to arrival of primary team code blue was called as patient had no pulse. He underwent 2 rounds of ACLS with ROSC, he was intubated during code blue. Nurse reported he had seizure like activity right before that. Strong smell of emesis was also noted. He was started on MV and taken to the ICU for further management. cc:: cc: Kristina Rolon DO Review of Systems Review of Systems ROS Unobtainable: unobtainable due to mental status and due to endotracheal tube Exam Vital Signs Temp Pulse Resp BP Pulse Ox O2 Del Method O2 Flow Rate 98.4 F 126 H 22 H 99/70 99 BiPAP 5 05/02/25 04:00 05/02/25 05:51 05/02/25 05:23 05/02/25 04:00 05/02/25 05:51 05/02/25 04:00 05/02/25 05:23 FiO2 100 05/02/25 05:51 Narrative Exam Gen: Well-developed obese male. HEENT: NCAT, [place], MMM, anicteric conjunctivae. CVS: normal S1 and S2. Regular tachycardia. No M/R/G. Resp: coarse breathing B/L. No rhonchi, rales, crackles or wheezing. Abd: soft, obese, non-tender, non-distended. BS+ in all 4 quadrants. MSK: Good ROM in BUE & BLE. BLE venous stasis dermatitis. Scaly rash over face and upper chest. Neuro: limited exam due to medical condition. Results Labs 05/03/25 04:40 05/03/25 04:40 Labs: Short CBC 05/01/25 Range/Units 15:05 WBC 7.1 (3.8-10.6) Thou/mm3 Hgb 12.2 L (13.5-16.0) g/dL Hct 38.2 L (41.0-53.0) % Plt Count 98 L (140-440) Thou/mm3 BMP 05/01/25 15:57 Sodium 141 Potassium 4.8 Chloride 88 L Carbon Dioxide > 40.0 H BUN 8 L Creatinine 0.7 Glucose 139 H Calcium 9.1 Liver Function 05/01/25 Range/Units 15:57 Total Bilirubin 0.4 (0.3-1.2) mg/dL AST 16 (0-34) U/L ALT 11 (10-49) U/L Alkaline Phosphatase 41 L (46-116) U/L Albumin 3.6 (3.4-4.8) gm/dL ABG Interpretation ABG results: 04/30/25 04/30/25 04/30/25 10:27 13:47 16:29 ABG pH 7.21 L 7.20 L ABG pCO2 134 H* 134 H* ABG pO2 79 L 67 L ABG HCO3 53 H 52 H ABG O2 Saturation 95 93 ABG Base Excess 19 H 18 H VBG pH 7.31 L VBG pCO2 102 H VBG pO2 52 VBG Base Excess 20 H 04/30/25 05/01/25 05/02/25 20:19 05:52 04:50 ABG pH 7.27 L 7.36 7.51 H D ABG pCO2 124 H* D 98 H* D 64 H D ABG pO2 60 L 63 L 55 L* ABG HCO3 56 H 56 H 51 H ABG O2 Saturation 91 92 91 ABG Base Excess 23 H 25 H 24 H VBG pH VBG pCO2 VBG pO2 VBG Base Excess Quality Measures Quality Measures VTE prophylaxis Advance care planning discussed with:: patient Medications Home Medications and Allergies Allergies Allergy/AdvReac Type Severity Reaction Status Date / Time No Known Allergies Allergy Verified 04/13/25 07:30 Visit Medications Acetaminophen (Acetaminophen 325 Mg Tablet) 650 mg PO Q6H PRN PRN Reason: Fever >100.4 or pain Stop: 05/30/25 13:41 Albuterol/Ipratropium (Albuterol/Ipratropium (Duoneb) Rt Marita 3 Ml Nebu) 3 ml INH Q4H [facility] Stop: 05/31/25 05:59 Last Admin: 05/02/25 03:24 Dose: 3 ml Docusate Sodium (Docusate Sod 100 Mg Capsule) 100 mg PO QDAY PRN; Protocol PRN Reason: CONSTIPATION Stop: 05/30/25 13:41 Enoxaparin Sodium (Enoxaparin Sod Inj 40 Mg/0.4 Ml Syringe) 40 mg SC QDAY [facility] Stop: 05/15/25 08:59 Last Admin: 05/01/25 08:10 Dose: 40 mg Furosemide (Furosemide Inj 10 Mg/Ml 4ml Vial) 40 mg IVP QDAY [facility] Stop: 05/30/25 16:14 Last Admin: 05/01/25 08:11 Dose: 40 mg Azithromycin 500 mg/ Sodium (Chloride) 250 mls @ 250 mls/hr IV QDAY [facility] Stop: 05/08/25 08:59 Last Infusion: 05/01/25 14:12 Dose: Infused Cefepime HCl 2 gm/ Sodium (Chloride) 50 mls @ 100 mls/hr IV Q8HR [facility] Stop: 05/07/25 16:10 Last Admin: 05/02/25 05:02 Dose: 100 mls/hr Propofol (Diprivan Ivpb) 1,000 mg in 100 mls @ 3.421 mls/hr IV .Q24H PRN; Protocol PRN Reason: PER PROTOCOL Stop: 06/01/25 05:53 Fentanyl Citrate (Sublimaze Inj 2,500 Mcg/250 Ml Bag) 2,500 mcg in 250 mls @ 2.5 mls/hr IV .Q24H PRN; Protocol PRN Reason: PER PROTOCOL Stop: 05/07/25 05:54 Methylprednisolone Sodium Succinate (Methylprednisolone Sod Succ 62.5 Mg/Ml 2ml Vial) 125 mg IVP DAILY [facility] Stop: 05/05/25 13:59 Last Admin: 05/01/25 08:11 Dose: 125 mg Nicotine (Nicotine Patch 14 Mg/24 Hr Patch.Td24) 14 mg TOP QDAY [facility] Stop: 05/31/25 08:59 Last Admin: 05/01/25 08:11 Dose: 14 mg Ondansetron HCl (Ondansetron Inj 2 Mg/Ml Inj 2 Ml) 4 mg IVP Q6H PRN; Protocol PRN Reason: NAUSEA OR VOMITING Stop: 05/30/25 13:41 Sennosides (Senna Tablet) 1 tab PO QDAY PRN; Protocol PRN Reason: constipation Stop: 05/30/25 13:41 Discontinued Medications Albuterol (Albuterol Rt 2.5 Mg/3 Ml Nebu) 5 mg INH X1 ONE Stop: 04/30/25 10:18 Last Admin: 04/30/25 12:28 Dose: Not Given Albuterol (Albuterol Rt 2.5 Mg/0.5 Ml Nebu) 5 mg INH X1 ONE Stop: 04/30/25 10:31 Last Admin: 04/30/25 10:34 Dose: 5 mg Albuterol/Ipratropium (Albuterol/Ipratropium (Duoneb) Rt Marita 3 Ml Nebu) 3 ml INH Q2HR PRN PRN Reason: SHORTNESS OF BREATH OR WHEEZE Stop: 05/30/25 13:41 Albuterol/Ipratropium (Albuterol/Ipratropium (Duoneb) Rt Marita 3 Ml Nebu) 3 ml INH Q4H [facility] Stop: 05/30/25 16:14 Last Admin: 05/01/25 01:28 Dose: 3 ml Magnesium Sulfate/Dextrose (Magnesium Sulfate Ivpb) 1 gm in 100 mls @ 100 mls/hr IV X1 ONE Stop: 04/30/25 11:16 Last Infusion: 04/30/25 11:32 Dose: Infused Levofloxacin/Dextrose (Levaquin Ivpb) 500 mg in 100 mls @ 100 mls/hr IV X1 ONE Stop: 04/30/25 13:37 Last Infusion: 04/30/25 17:36 Dose: Infused Ceftriaxone Sodium/Dextrose (Rocephin/D5w 1gm Iv Premix) 1 gm in 50 mls @ 100 mls/hr IV QDAY [facility] Stop: 05/07/25 13:45 Last Infusion: 04/30/25 15:05 Dose: Infused Azithromycin 500 mg/ Sodium (Chloride) 250 mls @ 250 mls/hr IV X1 ONE Stop: 04/30/25 14:46 Last Infusion: 04/30/25 16:17 Dose: Infused Ipratropium Leeper (Ipratropium Rt 0.5 Mg/ 2.5 Ml Nebu) 0.5 mg INH X1 ONE Stop: 04/30/25 10:18 Last Admin: 04/30/25 10:34 Dose: 0.5 mg Prednisone (Prednisone 20 Mg Tablet) 40 mg PO QDAY [facility] Stop: 05/06/25 08:59 Assessment & Plan Plan Patient is a 65 years old male with PMH of severe COPD on 4L home oxygen, HFpEF (EF 55?60%), s/p CABG, AFib, hypertension, hyperlipidemia, chronic tobacco use (1 PPD), and alcohol use disorder was upgraded to the ICU after code blue and subsequent ROSC. Neuro: #Sedation. - Started on fentanyl and propofol, RAAS -2. #?Seizure episode. Nurse reported he had seizure-like activity right before code blue. Plan: - consider further work up. Cardiovascular: #Status post cardiac arrest. #Undifferentiated shock. Patient had cardiac arrest with PEA, achieved ROSC after 2 rounds of ACLS, 2 doses of Epi was given and 1 dose of bicarb. Initially was hypertensive after code blue, then BP dropped to MAP of 52, started on NEpi drip. Plan: - continue on Levophed to maintain MAP above 65. - EKG and troponin I ordered. #Hx of HFpEF with EF 55-60%. #Hx of hypertension. Echo from 03/27/2025 showed Normal LV size and function with an estimated EF of 55 to 60%. Grade II Diastolic dysfunction. Plan: - home medications on hold due to shock. - continue Lasix IV, consider NHM for fluid status assessment. #Hx of CAD s/p CABG. #Hx of hyperlipidemia. - Patient is not on aspirin or statin, consider starting it. #Hx of Afib. Currently in sinus rhythm. Respiratory: #Possible aspiration. #Acute hypoxic respiratory failure. #Severe COPD. #Active tobacco smoking status. #Mechanical ventilation. Patient was intubated multiple times in past due to severe COPD, he is chronic CO2 retainer and is on 4L home O2. He continues to smoke tobacco despite health problems. Strong smell of emesis was noticed in his room before code blue, possible aspiration. Patient has excessive mucus in his airways. He was intubated and started on MV volume control: TV 460, FiO2 100%, PEEP 5, RR 20. ABG right after intubation showed pH 7.31, pCO2 89, pO2 181. Plan: - continue on MV volume control. - continue on azithromycin and cefepime IV. - consider BAL due to significant mucus production. - continue scheduled DuoNebs. - continue IV steroids. - repeat ABG. Gastrointestinal: No active problem. Renal: No active problem. Endocrine: No active problem. Infectious Disease: #Possible aspiration. See respiratory. Plan: - continue on azithromycin and cefepime IV. - blood cultures and sputum culture ordered. Hematology/Oncology: #Normocytic anemia. #Thrombocytopenia. On admission to ICU hgb 12.2, PLT 98. Plan: - monitor with daily labs. Diet: NPO. Lines: peripheral lines x2. Tubes: NG tube. DVT prophylaxis: lovenox. GI prophylaxis: Protonix. Code status: full code. Disposition: ICU. Plan of care discussed with attending Dr. Mandel. Madi Serrato MD, PGY 3. Disclaimer: This note was dictated by speech recognition. Minor errors in vacuum metalizing supervisor may be present due to voice recognition software. Attending Provider Attestation/Addendum I have examined the patient, reviewed labs and imaging findings, discussed the case with the resident(s), and reviewed entered orders. I agree with the plan of care as outlined in this note. Dr. Ministerio MD
[2025-05-02] MEDS: fentaNYL 2,500 MCG/250 ML BAG 2,500 MCG/250 ML BAG IV (06:03)
[2025-05-02] MEDS: PROPOFOL 1,000 MG IVPB 1,000 MG/100 ML VIAL 17.105 MG IV (06:03)
--- NOTE | 2025-05-02 06:03 | PC.NURSE ---
RN CONTACTED PT'S SON BECKY AND INFORM OF CODE BLUE AND PT TRANSFER TO RM 255 AND HE ACKNOWLEDGED. BECKY STATED PT REMAINS FULL CODE. DR. ARMENTA NOTIFIED.
[2025-05-02 06:06] LABS: Base Excess 14 (-3-3); HCO3 44 mEq/L (20-26); O2 Saturation 98 % (91-98); PCO2 89 mmHg (32.0-48.0); PO2 181 mmHg (83-108); pH, Arterial 7.31 (7.35-7.45)
[2025-05-02 06:08] LABS: Allen Test Not Performed; Inspired Oxygen, FIO2 100 %; Puncture Site Site Not Noted
[2025-05-02] MEDS: Norepinephrine/D5W 8mg/250ml 8 MG/250 ML BAG 10.691 MG IV (06:20)
[2025-05-02] MEDS: MIDAZOLAM INJ 1 MG/ML VIAL 2 ML 4 MG IVP (06:31)
--- NOTE | 2025-05-02 06:35 | XR_ITS ---
Examination: AP chest single view TECHNIQUE: AP supine portable chest single view Date and time: May 02, 2025 0643 hours Comparison May 02, 2025 INDICATIONS: Hypoxic respiratory failure, repositioned tracheal tube tip FINDINGS: Endotracheal tube tip 5 cm above tamera Mild prominence left ventricle Moderate vascular congestion. Pneumonia left base obscuring detail left hemidiaphragm IMPRESSION: Moderate vascular congestion Pneumonia left base
[2025-05-02 06:50] LABS: Lactate (Lactic Acid) 5.4 mMol/L (0.4-2.0)
[2025-05-02 07:00] LABS: Basophils # (Auto) 0.0 Thou/mm3 (0.0-0.2); Basophils % (Auto) 0 % (0-2.5); Eosinophils # (Auto) 0.0 Thou/mm3 (0.0-0.5); Eosinophils % (Auto) 0 % (0-10); Hematocrit 40.7 % (41.0-53.0); Hemoglobin 12.8 g/dL (13.5-16.0); Immature Granulocytes Auto 0.18 Thou/mm3 (0.00-0.00); Lymphocytes # (Auto) 1.5 Thou/mm3 (1.0-4.8); Lymphocytes % (Auto) 17 % (10-50); Mean Corpuscular HGB Conc 31.4 g/dl (31.0-37.0); Mean Corpuscular Hemoglobin 30.3 pg (25.0-35.0); Mean Corpuscular Volume 96 fL (80-100); Monocytes # (Auto) 0.6 Thou/mm3 (0.0-0.8); Monocytes % (Auto) 6 % (0-12); Neutrophils # (Auto) 6.7 Thou/mm3 (1.8-7.7); Neutrophils % (Auto) 75 % (37-80); Nucleated Red Blood Cell # 0.02 Thou/mm3 (0.00-0.00); Nucleated Red Blood Cell % 0 /100 WBC (0); Platelet Count 126 Thou/mm3 (140-440); RDW Standard Deviation 50.0 fL (35.1-43.9); Red Blood Count 4.22 Miln/mm3 (4.50-5.90); White Blood Count 9.0 Thou/mm3 (3.8-10.6)
--- NOTE | 2025-05-02 07:23 | PD.RESCONSUL ---
HPI Data of Consult Requesting Physician: Kristina Rolon DO Admitting Provider: Kristina Rolon DO Attending Provider: Kristina Rolon DO Primary Care Provider: Physician No Primary/Family Consult Narrative History of present illness: Mr. Lowe is a 65-year-old male with PMHx of severe COPD on 4L home oxygen, HFpEF (EF 55?60%), s/p CABG, AFib, hypertension, hyperlipidemia, chronic tobacco use (1 PPD), and alcohol use disorder. Patient BIBA for worsening shortness of breath, lethargy, vomiting. Of note, patient was previously discharged one week ago from this facility after treatment for hypercapnic respiratory failure and left lower lobe pneumonia, with counseling for BiPAP compliance and smoking cessation. In the ED, patient was found in visible respiratory distress. Initial VBG showed CO2 retention. ABG showed pH 7.2, CO2 134, HCO3 52, concerning for severe hypercapnia. Chest X-ray revealed significant left base pneumonia with mild to moderate left pleural effusion. Patient was placed on BiPAP. Rapid response called 05/02 0525, developed full body convulsions, transformed to code blue with PEA, most likely cardiac arrest 2/2 hypoxia vs aspiration from new-onset seizure. Administered CPR and epinephrine x2, 1 am bicarb. ROSC achieved 0538. Patient intubated, mechanically ventilated, transferred to ICU. Patient examined at bedside in ICU. Patient weaning off sedation, arousable to voice inconsistently, arousable to noxious stimuli, able to follow commands inconsistently. cc:: cc: Kristina Rolon DO Review of Systems Review of Systems Narrative Review of Systems: Unable to assess 2/2 intubation Exam Vital Signs Temp Pulse Resp BP Pulse Ox O2 Del Method O2 Flow Rate 98.4 F 70 22 H 139/63 H 96 BiPAP 60 05/02/25 04:00 05/02/25 06:40 05/02/25 06:40 05/02/25 06:40 05/02/25 06:40 05/02/25 04:00 05/02/25 06:24 FiO2 75 05/02/25 06:24 Narrative Exam General: Intubated on mechanical ventilation, arousable to voice insonsistently, arousable to noxious stimuli Eye: PERRL,, normal conjunctiva, no scleral icterus HENT: Normocephalic, atraumatic Neck: Supple, non-tender, no JVD, Lungs: Symmetric chest rise Heart: Peripheral pulses intact bilaterally Skin: Skin is warm, dry Neurologic: Intubated and sedated, arousable to noxious stimuli. Able to follow commands inconsistently. Finger precision assembly inspector 5/5 bl and symmetric Psychiatric: Cooperative, appropriate mood and affect Results Labs 05/02/25 06:07 05/02/25 06:07 Labs: Short CBC 05/01/25 05/02/25 Range/Units 15:05 06:07 WBC 7.1 9.0 (3.8-10.6) Thou/mm3 Hgb 12.2 L 12.8 L (13.5-16.0) g/dL Hct 38.2 L 40.7 L (41.0-53.0) % Plt Count 98 L 126 L D (140-440) Thou/mm3 BMP 05/01/25 15:57 Sodium 141 Potassium 4.8 Chloride 88 L Carbon Dioxide > 40.0 H BUN 8 L Creatinine 0.7 Glucose 139 H Calcium 9.1 Liver Function 05/01/25 Range/Units 15:57 Total Bilirubin 0.4 (0.3-1.2) mg/dL AST 16 (0-34) U/L ALT 11 (10-49) U/L Alkaline Phosphatase 41 L (46-116) U/L Albumin 3.6 (3.4-4.8) gm/dL ABG Interpretation ABG results: 04/30/25 04/30/25 04/30/25 10:27 13:47 16:29 ABG pH 7.21 L 7.20 L ABG pCO2 134 H* 134 H* ABG pO2 79 L 67 L ABG HCO3 53 H 52 H ABG O2 Saturation 95 93 ABG Base Excess 19 H 18 H VBG pH 7.31 L VBG pCO2 102 H VBG pO2 52 VBG Base Excess 20 H 04/30/25 05/01/25 05/02/25 20:19 05:52 04:50 ABG pH 7.27 L 7.36 7.51 H D ABG pCO2 124 H* D 98 H* D 64 H D ABG pO2 60 L 63 L 55 L* ABG HCO3 56 H 56 H 51 H ABG O2 Saturation 91 92 91 ABG Base Excess 23 H 25 H 24 H VBG pH VBG pCO2 VBG pO2 VBG Base Excess 05/02/25 05:57 ABG pH 7.31 L D ABG pCO2 89 H* D ABG pO2 181 H D ABG HCO3 44 H ABG O2 Saturation 98 ABG Base Excess 14 H VBG pH VBG pCO2 VBG pO2 VBG Base Excess Quality Measures Quality Measures VTE prophylaxis Advance care planning discussed with:: other Medications Home Medications and Allergies Allergies Allergy/AdvReac Type Severity Reaction Status Date / Time No Known Allergies Allergy Verified 04/13/25 07:30 Visit Medications Acetaminophen (Acetaminophen 325 Mg Tablet) 650 mg PO Q6H PRN PRN Reason: Fever >100.4 or pain Stop: 05/30/25 13:41 Albuterol/Ipratropium (Albuterol/Ipratropium (Duoneb) Rt Marita 3 Ml Nebu) 3 ml INH Q4H FREDIS Stop: 05/31/25 05:59 Last Admin: 05/02/25 06:22 Dose: 3 ml Docusate Sodium (Docusate Sod 100 Mg Capsule) 100 mg PO QDAY PRN; Protocol PRN Reason: CONSTIPATION Stop: 05/30/25 13:41 Enoxaparin Sodium (Enoxaparin Sod Inj 40 Mg/0.4 Ml Syringe) 40 mg SC QDAY [facility] Stop: 05/15/25 08:59 Last Admin: 05/01/25 08:10 Dose: 40 mg Furosemide (Furosemide Inj 10 Mg/Ml 4ml Vial) 40 mg IVP QDAY [facility] Stop: 05/30/25 16:14 Last Admin: 05/01/25 08:11 Dose: 40 mg Azithromycin 500 mg/ Sodium (Chloride) 250 mls @ 250 mls/hr IV QDAY FREDIS Stop: 05/08/25 08:59 Last Infusion: 05/01/25 14:12 Dose: Infused Cefepime HCl 2 gm/ Sodium (Chloride) 50 mls @ 100 mls/hr IV Q8HR [facility] Stop: 05/07/25 16:10 Last Admin: 05/02/25 05:02 Dose: 100 mls/hr Propofol (Diprivan Ivpb) 1,000 mg in 100 mls @ 3.421 mls/hr IV .Q24H PRN; Protocol PRN Reason: PER PROTOCOL Stop: 06/01/25 05:53 Last Titration: 05/02/25 07:00 Dose: 25 mcg/kg/min, 17.105 mls/hr Fentanyl Citrate (Sublimaze Inj 2,500 Mcg/250 Ml Bag) 2,500 mcg in 250 mls @ 2.5 mls/hr IV .Q24H PRN; Protocol PRN Reason: PER PROTOCOL Stop: 05/07/25 05:54 Last Titration: 05/02/25 07:00 Dose: 25 mcg/hr, 2.5 mls/hr Norepinephrine/Dextrose (Levophed In D5w 8mg/250ml) 8 mg in 250 mls @ 10.691 mls/hr IV .[id number] PRN; Protocol PRN Reason: PER PROTOCOL Stop: 06/01/25 06:36 Last Titration: 05/02/25 07:06 Dose: 0 mcg/kg/min, 0 mls/hr Methylprednisolone Sodium Succinate (Methylprednisolone Sod Succ 62.5 Mg/Ml 2ml Vial) 125 mg IVP DAILY [facility] Stop: 05/05/25 13:59 Last Admin: 05/01/25 08:11 Dose: 125 mg Nicotine (Nicotine Patch 14 Mg/24 Hr Patch.Td24) 14 mg TOP QDAY FREDIS Stop: 05/31/25 08:59 Last Admin: 05/01/25 08:11 Dose: 14 mg Ondansetron HCl (Ondansetron Inj 2 Mg/Ml Inj 2 Ml) 4 mg IVP Q6H PRN; Protocol PRN Reason: NAUSEA OR VOMITING Stop: 05/30/25 13:41 Pantoprazole Sodium (Pantoprazole Inj 40 Mg Vial) 40 mg IVP QDAY [facility] Stop: 06/01/25 08:59 Sennosides (Senna Tablet) 1 tab PO QDAY PRN; Protocol PRN Reason: constipation Stop: 05/30/25 13:41 Discontinued Medications Albuterol (Albuterol Rt 2.5 Mg/3 Ml Nebu) 5 mg INH X1 ONE Stop: 04/30/25 10:18 Last Admin: 04/30/25 12:28 Dose: Not Given Albuterol (Albuterol Rt 2.5 Mg/0.5 Ml Nebu) 5 mg INH X1 ONE Stop: 04/30/25 10:31 Last Admin: 04/30/25 10:34 Dose: 5 mg Albuterol/Ipratropium (Albuterol/Ipratropium (Duoneb) Rt Marita 3 Ml Nebu) 3 ml INH Q2HR PRN PRN Reason: SHORTNESS OF BREATH OR WHEEZE Stop: 05/30/25 13:41 Albuterol/Ipratropium (Albuterol/Ipratropium (Duoneb) Rt Marita 3 Ml Nebu) 3 ml INH Q4H FREDIS Stop: 05/30/25 16:14 Last Admin: 05/01/25 01:28 Dose: 3 ml Magnesium Sulfate/Dextrose (Magnesium Sulfate Ivpb) 1 gm in 100 mls @ 100 mls/hr IV X1 ONE Stop: 04/30/25 11:16 Last Infusion: 04/30/25 11:32 Dose: Infused Levofloxacin/Dextrose (Levaquin Ivpb) 500 mg in 100 mls @ 100 mls/hr IV X1 ONE Stop: 04/30/25 13:37 Last Infusion: 04/30/25 17:36 Dose: Infused Ceftriaxone Sodium/Dextrose (Rocephin/D5w 1gm Iv Premix) 1 gm in 50 mls @ 100 mls/hr IV QDAY [facility] Stop: 05/07/25 13:45 Last Infusion: 04/30/25 15:05 Dose: Infused Azithromycin 500 mg/ Sodium (Chloride) 250 mls @ 250 mls/hr IV X1 ONE Stop: 04/30/25 14:46 Last Infusion: 04/30/25 16:17 Dose: Infused Norepinephrine Bitartrate (Levophed In Ns 16mg/250ml) 16 mg in 250 mls @ 5.345 mls/hr IV .Q24H PRN; Protocol PRN Reason: PER protocol Stop: 06/01/25 06:20 Ipratropium [place] (Ipratropium Rt 0.5 Mg/ 2.5 Ml Nebu) 0.5 mg INH X1 ONE Stop: 04/30/25 10:18 Last Admin: 04/30/25 10:34 Dose: 0.5 mg Midazolam HCl (Midazolam Inj 1 Mg/Ml Vial 2 Ml) 4 mg IVP X1 ONE Stop: 05/02/25 06:06 Last Admin: 05/02/25 06:31 Dose: 4 mg Prednisone (Prednisone 20 Mg Tablet) 40 mg PO QDAY [facility] Stop: 05/06/25 08:59 Assessment & Plan Assessment #Sedation Plan: - Continue to wean sedation (on fentanyl and propofol) - Will perform full neuro exam once sedation stopped #Seizure episode? Nurse reported he had seizure-like activity right before code blue. Blood glucose: 139 --> 159 Lactic acid high 5.29 March 2025: TSH low, T4 WNL EKG 04/30 NSR Plan: - Routine spot EEG? - MRI w/ contrast to look for structural causes of seizure #Status post cardiac arrest #Undifferentiated shock Patient had cardiac arrest with PEA, achieved ROSC after 2 rounds of ACLS, 2 doses of Epi was given and 1 dose of bicarb. Initially was hypertensive after code blue, then BP dropped to MAP of 52, started on NEpi drip. Troponin WNL Plan: - Management per primary team #Hx of HFpEF with EF 55-60% #Hx of hypertension Echo from 03/27/2025 showed Normal LV size and function with an estimated EF of 55 to 60%. Grade II Diastolic dysfunction. Plan: - Management per primary team - Lasix IV #Hx of CAD s/p CABG #Hx of hyperlipidemia Troponin WNL No home med statin Plan: - Pending lipid panel #Hx of Afib Currently in sinus rhythm No documented home anticoagulation Plan: - Management per primary team - Enoxaparin 40 mg daily #Possible aspiration PNA #Acute hypoxic respiratory failure #Severe COPD on 4L home O2 #Active tobacco smoking status #Mechanical ventilation Patient was intubated multiple times in past due to severe COPD, he is chronic CO2 retainer and is on 4L home O2. He continues to smoke tobacco despite health problems. Excessive mucus in his airways. He was intubated and started on MV volume control: TV 460, FiO2 100%, PEEP 5, RR 20. CXR 04/30: Significant pneumonia left base Mild to moderate left pleural fluid Plan: - Management per primary - azithromycin and cefepime IV, DuoNebs, IV steroids - Pending blood and sputum cultures #Normocytic anemia #Thrombocytopenia On admission to ICU hgb 12.2, PLT 98. Plan: - Management per primary - continue to monitor Plan discussed with Dr. Candy Moya, PGY1 Attending Provider Attestation/Addendum I personally have seen and examined the patient at the bedside and agreed with resident's findings, assessment and plan of care. Follow-up with MRI brain and EEG to evaluate further. Patient has not had any more recurrence of similar episodes after resuscitated.
[2025-05-02 07:25] LABS: Alanine Aminotransferase 13 U/L (10-49); Albumin, Serum 3.7 gm/dL (3.4-4.8); Albumin/Globulin Ratio 1.5 (1.2-2.2); Alkaline Phosphatase 43 U/L (46-116); Anion Gap 14 (7-16); Aspartate Amino Transferase 18 U/L (0-34); BUN/Creatinine Ratio 14 Ratio (12-20); Bilirubin,Total 0.4 mg/dL (0.3-1.2); Blood Urea Nitrogen 13 mg/dL (9-23); Calcium 8.9 mg/dL (8.3-10.6); Calcium (Corrected) 9.1 mg/dL (8.5-10.1); Carbon Dioxide > 40.0 mMol/L (20.0-31.0); Chloride 89 mMol/L (98-107); Creatinine (Component) 0.9 mg/dL (0.6-1.3); Estimated Creatinine Clearance 103.1 mL/min (>60); Globulin 2.4 gm/dL (2.3-3.5); Glucose 159 mg/dL (74-106); Magnesium 1.7 mg/dL (1.6-2.6); Osmolality,Calculated 288 (275-295); Phosphorous 2.3 mg/dL (2.4-5.1); Potassium 3.8 mMol/L (3.4-5.1); Sodium 143 mMol/L (136-145); Total Protein 6.1 gm/dL (5.7-8.2); Troponin I < 0.020 ng/mL (0.0-0.045); eGFR > 60 See Note
[2025-05-02] MEDS: FUROSEMIDE INJ 10 MG/ML 4ML VIAL 40 MG IVP (08:13)
[2025-05-02] MEDS: ENOXAPARIN SOD INJ 40 MG/0.4 ML SYRINGE SC (08:14)
[2025-05-02] MEDS: MethylPREDNISolone SOD SUCC 62.5 MG/ML 2ML VIAL 125 MG IVP (08:14)
[2025-05-02] MEDS: NICOTINE PATCH 14 MG/24 HR PATCH.TD24 TOP (08:14)
[2025-05-02] MEDS: POTASSIUM CHL 10 mEq IVPB 10 MEQ/100 ML BAG 100 MEQ IV ×4 (08:24→11:34)
[2025-05-02] MEDS: AZITHROMYCIN INJ 500 MG in SODIUM CHLORIDE 0.9% 250 ML 250 ML 250 MG IV (09:02)
[2025-05-02 09:31] LABS: Reflex Lactate? Y
[2025-05-02] MEDS: levETIRAcetam LIQD 500 MG/5 ML UDC PO ×2 (10:07→21:06)
--- NOTE | 2025-05-02 10:48 | CHAP ---
Patient was visited by a Spiritual Care Volunteer on 05/02/2025 between 0900 and 0920 and received comfort, encouragement and/or prayer.
[2025-05-02 11:34] LABS: Lactic Acid, 3 HR 1.5 mMol/L (0.4-2.0)
[2025-05-02] MEDS: PROPOFOL 1,000 MG IVPB 1,000 MG/100 ML VIAL 3.421 MG IV (11:50)
[2025-05-02] MEDS: PIPER/TAZO INJ 4.5 GM in SODIUM CHLORIDE 0.9% (POP) 100 ML IV ×2 (11:53→21:05)
[2025-05-02] MEDS: POT PHOS 15 mMol in NS 250 ML 15 MMOL/250 ML BAG 62.5 MMOL IV (11:54)
[2025-05-02] MEDS: Magnesium Sulfate 4 GM Ivpb 4 GM/50 ML BAG IV (11:54)
[2025-05-02] MEDS: MIDODRINE 5 MG TABLET 10 MG PO ×2 (13:16→21:06)
[2025-05-02 16:20] LABS: Base Excess 23 (-3-3); HCO3 49 mEq/L (20-26); Inspired Oxygen, FIO2 45 %; O2 Saturation 93 % (91-98); PCO2 61 mmHg (32.0-48.0); PO2 62 mmHg (83-108); pH, Arterial 7.52 (7.35-7.45)
[2025-05-02 16:23] LABS: Allen Test Performed/OK; Puncture Site Right Radial
--- NOTE | 2025-05-02 16:24 | PC.SS ---
Update: Patient remains intubated/sedated. Patient is no receiving pressor support. Code Blue initiated on the patient this morning, subsequently transitioned to ICU. Feedings are on pause. Patient in possession of pyle catheter. Patient receiving IV antibiotics. Possible extubation tomorrow.
--- NOTE | 2025-05-02 17:15 | ESPR_ITS ---
<Statement entered by Dia Issa MD - 05/02/25 19:15> TOTAL CC TIME: 45 MIN I saw and evaluated the patient. I reviewed the resident?s note and agree with findings and plan as documented in the resident?s note. Upon my evaluation, this patient had a high probability of imminent or life- threatening deterioration due to acute on chronic hypoxic/hypercapnic resp failure post cardiac arrest, which required my direct attention, intervention, and personal management. This time is exclusive of time spent on procedures, which are documented separately if performed. ph acceptable cxr reviewed - MV dynamics acceptable not a candidate for PSV yet wean sedation monitor neurological status closely empiric keppra - if does not wake up - will consider ct head imaging. Documentation for date of: 05/02/25 Subjective Subjective Interval history: A 65-year-old male patient with a past medical history of severe COPD on 4 L of home oxygen, HFpEF, CAD status post CABG, A-fib, hypertension, hyperlipidemia, chronic smoker, questionable history of alcohol use disorder, was admitted to the hospital due to acute on chronic hypercapnic hypoxic respiratory failure secondary to pneumonia and COPD exacerbation. At the hospital patient had a seizure episode and coded and had PEA and ROSC was achieved patient was intubated and sedated and was admitted to ICU. Patient remained sedated and mechanically intubated. We tried to wean him off sedation however patient continued to be agitated. Will start the patient on Keppra 500 mg twice daily. This morning his ABG showed pH of 7.31, CO2 of 89 that increased from last night and was it was 64. Will keep the patient intubated, continue breathing treatment every 4 hours and as needed. Will reassess his pleural effusion by ultrasound for possible aspiration the patient continue to be intubated. Repeat VBG at 12 AM to assess pH. Exam Vital Signs Temp Pulse Resp BP Pulse Ox O2 Del Method O2 Flow Rate 98.4 F 57 L 23 H 127/54 L 94 L Mechanical Ventilation 45 05/02/25 16:00 05/02/25 17:00 05/02/25 17:00 05/02/25 17:00 05/02/25 17:00 05/02/25 16:00 05/02/25 14:37 FiO2 45 05/02/25 16:00 Narrative Exam GEN: Alert, agitated, intubated and mechanically sedated. HEENT: NC/AC, oral mucosa moist, neck supple CVS: RRR, S1-S2 present, no murmurs appreciated RESP: Diffuse wheezing bilaterally. GI: soft,non distended, non tender, NBS MSK: able to move all 4 limbs, no lower extremity edema SKIN: warm and dry CLOTHES PRESSER: Unable to assess due to his agitation. Objective Labs 05/02/25 06:07 05/02/25 06:07 Labs: Laboratory Results - last 24 hr 05/01/25 05/02/25 05/02/25 15:57 04:50 05:57 WBC RBC Hgb Hct MCV MCH MCHC RDW Std Deviation Plt Count Neut % (Auto) Lymph % (Auto) [place] % (Auto) Eos % (Auto) Baso % (Auto) Neut # (Auto) Lymph # (Auto) [place] # (Auto) Eos # (Auto) Baso # (Auto) Immature Gran # (Auto) Absolute Nucleated RBC Immature Gran % Nucleated RBC % Puncture Site Right Radial Site Not Noted ABG pH 7.51 H D 7.31 L D ABG pCO2 64 H D 89 H* D ABG pO2 55 L* 181 H D ABG HCO3 51 H 44 H ABG O2 Saturation 91 98 ABG Base Excess 24 H 14 H FiO2 50 100 Sodium 141 Potassium 4.8 Chloride 88 L Carbon Dioxide > 40.0 H Anion Gap 13 BUN 8 L Creatinine 0.7 Estim Creat Clear Calc 137.5 eGFR > 60 BUN/Creatinine Ratio 11 L Glucose 139 H Calculated Osmolality 281 Lactic Acid Calcium 9.1 Corrected Calcium 9.4 Phosphorus 2.1 L Magnesium 1.9 Total Bilirubin 0.4 AST 16 ALT 11 Alkaline Phosphatase 41 L Troponin I Total Protein 5.9 Albumin 3.6 Globulin 2.3 Albumin/Globulin Ratio 1.6 05/02/25 05/02/25 05/02/25 06:07 11:12 16:10 WBC 9.0 RBC 4.22 L Hgb 12.8 L Hct 40.7 L MCV 96 MCH 30.3 MCHC 31.4 RDW Std Deviation 50.0 H Plt Count 126 L D Neut % (Auto) 75 Lymph % (Auto) 17 [place] % (Auto) 6 Eos % (Auto) 0 Baso % (Auto) 0 Neut # (Auto) 6.7 Lymph # (Auto) 1.5 [place] # (Auto) 0.6 Eos # (Auto) 0.0 Baso # (Auto) 0.0 Immature Gran # (Auto) 0.18 H Absolute Nucleated RBC 0.02 H Immature Gran % 2 H Nucleated RBC % 0 Puncture Site Right Radial ABG pH 7.52 H D ABG pCO2 61 H D ABG pO2 62 L D ABG HCO3 49 H ABG O2 Saturation 93 ABG Base Excess 23 H FiO2 45 Sodium 143 Potassium 3.8 D Chloride 89 L Carbon Dioxide > 40.0 H Anion Gap 14 BUN 13 Creatinine 0.9 Estim Creat Clear Calc 103.1 eGFR > 60 BUN/Creatinine Ratio 14 Glucose 159 H Calculated Osmolality 288 Lactic Acid 5.4 H* 1.5 Calcium 8.9 Corrected Calcium 9.1 Phosphorus 2.3 L Magnesium 1.7 Total Bilirubin 0.4 AST 18 ALT 13 Alkaline Phosphatase 43 L Troponin I < 0.020 Total Protein 6.1 Albumin 3.7 Globulin 2.4 Albumin/Globulin Ratio 1.5 ABG Interpretation ABG results: 04/30/25 04/30/25 04/30/25 10:27 13:47 16:29 ABG pH 7.21 L 7.20 L ABG pCO2 134 H* 134 H* ABG pO2 79 L 67 L ABG HCO3 53 H 52 H ABG O2 Saturation 95 93 ABG Base Excess 19 H 18 H VBG pH 7.31 L VBG pCO2 102 H VBG pO2 52 VBG Base Excess 20 H 04/30/25 05/01/25 05/02/25 20:19 05:52 04:50 ABG pH 7.27 L 7.36 7.51 H D ABG pCO2 124 H* D 98 H* D 64 H D ABG pO2 60 L 63 L 55 L* ABG HCO3 56 H 56 H 51 H ABG O2 Saturation 91 92 91 ABG Base Excess 23 H 25 H 24 H VBG pH VBG pCO2 VBG pO2 VBG Base Excess 05/02/25 05/02/25 05:57 16:10 ABG pH 7.31 L D 7.52 H D ABG pCO2 89 H* D 61 H D ABG pO2 181 H D 62 L D ABG HCO3 44 H 49 H ABG O2 Saturation 98 93 ABG Base Excess 14 H 23 H VBG pH VBG pCO2 VBG pO2 VBG Base Excess Quality Measures Quality Measures VTE prophylaxis Advance care planning discussed with:: child Assessment & Plan Assessment Current Active Medications: Generic Name Dose Route Start Last Admin Trade Name Freq PRN Reason Stop Dose Admin Acetaminophen 650 mg 04/30/25 13:42 Acetaminophen 325 Mg Tablet PO 05/30/25 13:41 Q6H PRN Fever >100.4 or pain Albuterol/Ipratropium 3 ml 05/01/25 06:00 05/02/25 14:35 Albuterol/Ipratropium (Duoneb) Rt Marita 3 Ml Nebu INH 05/31/25 05:59 3 ml Q4H FREDIS Administration Albuterol/Ipratropium 3 ml 05/02/25 07:45 Albuterol/Ipratropium (Duoneb) Rt Marita 3 Ml Nebu INH 06/01/25 07:44 Q2HR PRN SHORTNESS OF BREATH OR WHEEZE Docusate Sodium 100 mg 04/30/25 13:42 Docusate Sod 100 Mg Capsule PO 05/30/25 13:41 QDAY PRN CONSTIPATION Protocol Enoxaparin Sodium 40 mg 05/01/25 09:00 05/02/25 08:14 Enoxaparin Sod Inj 40 Mg/0.4 Ml Syringe SC 05/15/25 08:59 40 mg QDAY FREDIS Administration Furosemide 40 mg 04/30/25 16:15 05/02/25 08:13 Furosemide Inj 10 Mg/Ml 4ml Vial IVP 05/30/25 16:14 40 mg QDAY FREDIS Administration Azithromycin 500 mg/ Sodium 250 mls @ 250 mls/hr 05/01/25 09:00 05/02/25 09:02 Chloride IV 05/08/25 08:59 250 mls/hr QDAY FREDIS Administration Propofol 1,000 mg in 100 mls @ 3.421 mls/hr 05/02/25 05:54 05/02/25 16:10 Diprivan Ivpb IV 06/01/25 05:53 10 mcg/kg/min .Q24H PRN 6.842 mls/hr PER PROTOCOL Titration Protocol 5 MCG/KG/MIN Fentanyl Citrate 2,500 mcg in 250 mls @ 2.5 mls/hr 05/02/25 05:55 05/02/25 16:50 Sublimaze Inj 2,500 Mcg/250 Ml Bag IV 05/07/25 05:54 175 mcg/hr .Q24H PRN 17.5 mls/hr PER PROTOCOL Titration Protocol 25 MCG/HR Norepinephrine/Dextrose 8 mg in 250 mls @ 10.691 mls/hr 05/02/25 06:37 05/02/25 10:14 Levophed In D5w 8mg/250ml IV 06/01/25 06:36 0 mcg/kg/min .[id number] PRN 0 mls/hr PER PROTOCOL Titration Protocol 0.05 MCG/KG/MIN Piperacillin Sod/Tazobactam 100 mls @ 25 mls/hr 05/02/25 22:00 Sod 4.5 gm/ Sodium Chloride IV 05/09/25 21:59 Q8HR FREDIS Levetiracetam 500 mg 05/02/25 09:30 05/02/25 10:07 Levetiracetam Liqd 500 Mg/5 Ml Udc PO 06/01/25 09:29 500 mg BID FREDIS Administration Methylprednisolone Sodium Succinate 125 mg 04/30/25 14:00 05/02/25 08:14 Methylprednisolone Sod Succ 62.5 Mg/Ml 2ml Vial IVP 05/05/25 13:59 125 mg DAILY FREDIS Administration Midodrine 10 mg 05/02/25 14:00 05/02/25 13:16 Midodrine 5 Mg Tablet PO 06/01/25 13:59 10 mg TID FREDIS Administration Nicotine 14 mg 05/01/25 09:00 05/02/25 08:14 Nicotine Patch 14 Mg/24 Hr Patch.Td24 TOP 05/31/25 08:59 14 mg QDAY FREDIS Administration Ondansetron HCl 4 mg 04/30/25 13:42 Ondansetron Inj 2 Mg/Ml Inj 2 Ml IVP 05/30/25 13:41 Q6H PRN NAUSEA OR VOMITING Protocol Pantoprazole Sodium 40 mg 05/02/25 09:00 05/02/25 08:38 Pantoprazole Inj 40 Mg Vial IVP 06/01/25 08:59 40 mg QDAY FREDIS Administration Sennosides 1 tab 05/03/25 09:00 Senna Tablet PO 06/02/25 08:59 QDAY FREDIS Protocol Plan Patient is a 65 years old male with PMH of severe COPD on 4L home oxygen, HFpEF (EF 55?60%), s/p CABG, AFib, hypertension, hyperlipidemia, chronic tobacco use (1 PPD), and alcohol use disorder was upgraded to the ICU after code blue and subsequent ROSC. Neuro: #Sedation. - Started on fentanyl and propofol, RAAS -0. # Questionable new seizure episode Nurse reported he had seizure-like activity right before code blue. Plan: ?Start patient on Keppra 500 mg p.o. twice daily - consider further work up. Cardiovascular: #Status post cardiac arrest (PEA) #Undifferentiated shock. Patient had cardiac arrest with PEA, achieved ROSC after 2 rounds of ACLS, 2 doses of Epi was given and 1 dose of bicarb. Initially was hypertensive after code blue, then BP dropped to MAP of 52, started on NEpi drip. Troponin was within normal limits. Plan: ?Start the patient on midodrine p.o. 3 times daily - continue on Levophed to maintain MAP above 65. #Hx of HFpEF with EF 55-60%. #Hx of hypertension. Echo from 03/27/2025 showed Normal LV size and function with an estimated EF of 55 to 60%. Grade II Diastolic dysfunction. Plan: - home medications on hold due to shock. -Hold Lasix. Consider [facility] for fluid status assessment. #Hx of CAD s/p CABG. #Hx of hyperlipidemia. - Patient is not on aspirin or statin, consider starting it. #Hx of Afib. Currently in sinus rhythm. Respiratory: #Possible aspiration. #Acute hypoxic respiratory failure. #Severe COPD On 4 L at home #Active tobacco smoking status. #Mechanical ventilation. Patient was intubated multiple times in past due to severe COPD, he is chronic CO2 retainer and is on 4L home O2. He continues to smoke tobacco despite health problems. Strong smell of emesis was noticed in his room before code blue, possible aspiration. Patient has excessive mucus in his airways. Last ABG today 05/02/2005 at 1610 showed pH level of 7.52, pCO2 of 61, O2 of 62, HCO3 of 49, ABG saturation 93. Plan: - continue on MV volume control, repeat VBG at 12 AM today to monitor pH level - continue on azithromycin and change cefepime to Zosyn as he has history of Pseudomonas in previous ET tube cultures. - continue scheduled DuoNebs, added DuoNebs as needed every 4 hours - continue IV steroids. Gastrointestinal: No active problem. Renal: No active problem. Endocrine: No active problem. Infectious Disease: #Possible aspiration. See respiratory. Plan: - continue on azithromycin and and Zosyn. - blood cultures and sputum culture ordered. Hematology/Oncology: #Normocytic anemia. #Thrombocytopenia. On admission to ICU hgb 12.2, PLT 98. Plan: - monitor with daily labs. Diet: NPO. Lines: peripheral lines x2. Tubes: NG tube. DVT prophylaxis: lovenox. GI prophylaxis: Protonix. Code status: full code. Disposition: ICU. - Patient's plan and care discussed with my attending, Dr. Maegan Logan MD Internal Medicine PGY-3
[2025-05-02] MEDS: fentaNYL 2,500 MCG/250 ML BAG 2,500 MCG/250 ML BAG 17.5 MCG IV (23:36)
[2025-05-03] VITALS (35 sets, daily range): BP systolic 105–181; BP diastolic 42–114; PULSE 54–74; RESP 13–69; TEMP 36.3–36.8; O2SAT 83–100; BMI 32.6; BMI 32.8
[2025-05-03 00:26] LABS: Base Excess, Venous 21 (-3-3); O2 Saturation, Venous 97 % (96-97); PCO2, Venous 51 mmHg (36-56); PO2, Venous 90 mmHg (15-58); pH, Venous 7.57 (7.33-7.66)
[2025-05-03] MEDS: ALBUTEROL/IPRATROPIUM (Duoneb) RT SOL 3 ML NEBU INH ×6 (02:00→22:09)
[2025-05-03] MEDS: PROPOFOL 1,000 MG IVPB 1,000 MG/100 ML VIAL 23.947 MG IV ×2 (03:27)
[2025-05-03 03:56] LABS: Base Excess 20 (-3-3); HCO3 46 mEq/L (20-26); Inspired Oxygen, FIO2 40 %; O2 Saturation 92 % (91-98); PCO2 56 mmHg (32.0-48.0); pH, Arterial 7.52 (7.35-7.45)
[2025-05-03 03:58] LABS: Allen Test Performed/OK; PO2 59 mmHg (83-108); Puncture Site Right Radial
--- NOTE | 2025-05-03 05:00 | XR_ITS ---
Examination: AP chest single view TECHNIQUE: AP portable semiupright chest single view Date and time: May 03, 2025, 0358 hours Comparison May 02, 2025 INDICATIONS: Hypoxic respiratory failure this week post intubation FINDINGS: Mild prominence of ventricle Prominent vascular congestion with perihilar edema Prominent pneumonia left base Endotracheal tube tip 4.4 cm above Patricia. The orogastric tube is in the stomach, the tip is below the level of the film IMPRESSION: Mild heart failure. Prominent pneumonia left base
--- NOTE | 2025-05-03 05:00 | PC.RT ---
RR titrated to 20 tidal volume to 400 per abg results.
[2025-05-03] MEDS: PIPER/TAZO INJ 4.5 GM in SODIUM CHLORIDE 0.9% (POP) 100 ML IV ×3 (05:27→21:08)
[2025-05-03] MEDS: MIDODRINE 5 MG TABLET 10 MG PO (05:28)
[2025-05-03 05:59] LABS: Basophils # (Auto) 0.1 Thou/mm3 (0.0-0.2); Basophils % (Auto) 1 % (0-2.5); Eosinophils # (Auto) 0.0 Thou/mm3 (0.0-0.5); Eosinophils % (Auto) 0 % (0-10); Hematocrit 33.6 % (41.0-53.0); Hemoglobin 11.1 g/dL (13.5-16.0); Immature Granulocytes Auto 0.42 Thou/mm3 (0.00-0.00); Lymphocytes # (Auto) 0.6 Thou/mm3 (1.0-4.8); Lymphocytes % (Auto) 7 % (10-50); Mean Corpuscular HGB Conc 33.0 g/dl (31.0-37.0); Mean Corpuscular Hemoglobin 30.2 pg (25.0-35.0); Mean Corpuscular Volume 92 fL (80-100); Monocytes # (Auto) 0.5 Thou/mm3 (0.0-0.8); Monocytes % (Auto) 6 % (0-12); Neutrophils # (Auto) 6.6 Thou/mm3 (1.8-7.7); Neutrophils % (Auto) 81 % (37-80); Nucleated Red Blood Cell # 0.05 Thou/mm3 (0.00-0.00); Nucleated Red Blood Cell % 1 /100 WBC (0); RDW Standard Deviation 48.6 fL (35.1-43.9); Red Blood Count 3.67 Miln/mm3 (4.50-5.90); White Blood Count 8.2 Thou/mm3 (3.8-10.6)
[2025-05-03 06:28] LABS: Glucose Estimated Average 100 mg/dL (80-131); Hemoglobin A1C 5.1 % Hgb (4.8-6.0)
[2025-05-03 06:39] LABS: Alanine Aminotransferase 12 U/L (10-49); Albumin, Serum 3.5 gm/dL (3.4-4.8); Albumin/Globulin Ratio 1.8 (1.2-2.2); Alkaline Phosphatase 34 U/L (46-116); Anion Gap 11 (7-16); Aspartate Amino Transferase 17 U/L (0-34); BUN/Creatinine Ratio 17 Ratio (12-20); Bilirubin,Total 0.7 mg/dL (0.3-1.2); Blood Urea Nitrogen 15 mg/dL (9-23); Calcium 8.6 mg/dL (8.3-10.6); Calcium (Corrected) 9.0 mg/dL (8.5-10.1); Carbon Dioxide > 40.0 mMol/L (20.0-31.0); Chloride 91 mMol/L (98-107); Creatinine (Component) 0.9 mg/dL (0.6-1.3); Estimated Creatinine Clearance 101.5 mL/min (>60); Globulin 2.0 gm/dL (2.3-3.5); Glucose 122 mg/dL (74-106); Magnesium 2.3 mg/dL (1.6-2.6); Osmolality,Calculated 284 (275-295); Phosphorous 2.5 mg/dL (2.4-5.1); Potassium 3.8 mMol/L (3.4-5.1); Sodium 142 mMol/L (136-145); Total Protein 5.5 gm/dL (5.7-8.2); eGFR > 60 See Note
[2025-05-03] MEDS: levETIRAcetam LIQD 500 MG/5 ML UDC PO (08:16)
[2025-05-03] MEDS: NICOTINE PATCH 14 MG/24 HR PATCH.TD24 TOP (08:16)
[2025-05-03] MEDS: ENOXAPARIN SOD INJ 40 MG/0.4 ML SYRINGE SC (08:16)
[2025-05-03] MEDS: MethylPREDNISolone SOD SUCC 62.5 MG/ML 2ML VIAL 125 MG IVP (08:16)
[2025-05-03] MEDS: AZITHROMYCIN INJ 500 MG in SODIUM CHLORIDE 0.9% 250 ML 250 ML 250 MG IV (08:33)
--- NOTE | 2025-05-03 10:19 | ESPR_ITS ---
<Statement entered by Dia Issa MD - 05/04/25 12:29> I saw and evaluated the patient. I reviewed the resident?s note and agree with findings and plan as documented in the resident?s note. Upon my evaluation, this patient had a high probability of imminent or life- threatening deterioration due to post cardiac arrest which required my direct attention, intervention, and personal management. This time is exclusive of time spent on procedures, which are documented separately if performed. Improving respiratory failure and was successfully extubated after passing SBT. Left mild to moderate pleural effusion no evidence of loculations or fibrin deposition. Possibly related to diastolic dysfunction doubt parapneumonic. Will reassess at bedside with ultrasound again tomorrow. Continue COPD medications empiric antibiotics. Patient is improving thankfully. <Statement entered by Matteo Patel MD - 05/03/25 18:07> Patient was seen and examined at bedside. I agree on the assessment and plan on this note as documented by resident Skyler Shukla PGY1. Mr Lowe is a 65-year-old male with past medical history of COPD on 4 L home oxygen, heart failure with preserved ejection fraction, EF 55 to 60% Nov 2024, status post CABG, A-fib, hypertension, hyperlipidemia, nicotine dependence and alcohol use disorder who presented initially to [facility] for acute hypoxic respiratory failure, patient was placed on BiPAP. Overnight after admission patient had cardiopulmonary arrest, PEA seen on telemetry, CODE BLUE initiated, ROSC achieved and patient was intubated and admitted to intensive care unit for further management. There is suspicion of underlying seizure episode, neurology was consulted, patient required low-dose pressors post ROSC. Today patient had been off of pressors, was weaned off sedation, awake and following commands. Patient was placed on spontaneous breathing trial, RSBI less than 105, extubated to cold mist and eventually transition to nasal cannula. 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 Plan history discussed with patient in morning and possibly perform a thoracentesis. Otherwise we will start patient on aspirin and atorvastatin, will defer for MRI EEG, patient does have documented history of seizures although patient denies any workup for seizures or management in the past. Will continue to hold Lasix. Will observe in ICU tonight as patient was extubated today. Case discussed with attending Dr. Maegan Patel MD PGY-2 Documentation for date of: 05/03/25 Subjective Subjective Interval history: HPI A 65-year-old male patient with a past medical history of severe COPD on 4 L of home oxygen, HFpEF, CAD status post CABG, A-fib, hypertension, hyperlipidemia, chronic smoker, questionable history of alcohol use disorder, was admitted to the hospital due to acute on chronic hypercapnic hypoxic respiratory failure secondary to pneumonia and COPD exacerbation and placed on BiPAP. At the hospital patient had a possible seizure episode morning of 05/02/2025 and coded with PEA. ROSC was achieved after 10 minutes and 2 doses of epinephrine with chest compressions. Patient was intubated and sedated and was admitted to ICU. 05/03/2025 Patient is off pressors not requiring midodrine, weaned off sedation, following commands. Switched from volume control to pressure support this morning, hypercapnic at baseline, will allow permissive hypercapnia tolerated SBT well, RSBI< 105, Extubated today to Cool Mist then transitioned to nasal cannula, tolerating well. Continue to hold Lasix, currently euvolemic, bedside US does show left pleural effusion, will consider tapping after discussion with patient in AM. Will defer MRI/EEG, documented history of Seizures, though patient denies it. Started on aspirin and atorvastatin. Exam Vital Signs Temp Pulse Resp BP Pulse Ox O2 Del Method O2 Flow Rate 98.1 F 67 22 H 165/77 H 92 L Mechanical Ventilation 45 05/03/25 04:00 05/03/25 07:00 05/03/25 06:39 05/03/25 07:00 05/03/25 07:00 05/02/25 16:00 05/02/25 14:37 FiO2 35 05/03/25 08:00 Narrative Exam General: Awake and in no acute distress. Conversational and non-toxic appearing. Neurologic: GCS 15. Alert and oriented x3, no gross neurological deficit, and patient able to move all 4 extremities. HEENT: Normocephalic, atraumatic, mucous membranes moist. Heart: Regular rate and rhythm, normal S1 and S2, no murmurs. Lungs: Wheezing in the bases bilaterally. Abdomen: Obese, nondistended. No guarding or rebound tenderness. Denies pain on palpation. Extremities: No edema. 2+ radial pulses bilaterally. 1+ dorsalis pedis pulses bilaterally. Skin: Venous stasis dermatitis in the lower extremities bilaterally below the knee. Warm. Dry. Objective Labs 05/03/25 04:40 05/03/25 04:40 Labs: Laboratory Results - last 24 hr 05/02/25 05/02/25 05/02/25 00:09 11:12 16:10 WBC RBC Hgb Hct MCV MCH MCHC RDW Std Deviation Plt Count Neut % (Auto) Lymph % (Auto) [place] % (Auto) Eos % (Auto) Baso % (Auto) Neut # (Auto) Lymph # (Auto) [place] # (Auto) Eos # (Auto) Baso # (Auto) Immature Gran # (Auto) Absolute Nucleated RBC Immature Gran % Nucleated RBC % Puncture Site Right Radial ABG pH 7.52 H D ABG pCO2 61 H D ABG pO2 62 L D ABG HCO3 49 H ABG O2 Saturation 93 ABG Base Excess 23 H VBG pH 7.57 VBG pCO2 51 D VBG pO2 90 H D VBG O2 Sat ([place]) 97 VBG Base Excess 21 H FiO2 45 Sodium Potassium Chloride Carbon Dioxide Anion Gap BUN Creatinine Estim Creat Clear Calc eGFR BUN/Creatinine Ratio Glucose Estimated Ave Glu mg/dL Hemoglobin A1c Calculated Osmolality Lactic Acid 1.5 Calcium Corrected Calcium Phosphorus Magnesium Total Bilirubin AST ALT Alkaline Phosphatase Total Protein Albumin Globulin Albumin/Globulin Ratio 05/03/25 05/03/25 03:49 04:40 WBC 8.2 RBC 3.67 L Hgb 11.1 L Hct 33.6 L MCV 92 MCH 30.2 MCHC 33.0 RDW Std Deviation 48.6 H Plt Count 95 L D Neut % (Auto) 81 H Lymph % (Auto) 7 L [place] % (Auto) 6 Eos % (Auto) 0 Baso % (Auto) 1 Neut # (Auto) 6.6 Lymph # (Auto) 0.6 L [place] # (Auto) 0.5 Eos # (Auto) 0.0 Baso # (Auto) 0.1 Immature Gran # (Auto) 0.42 H Absolute Nucleated RBC 0.05 H Immature Gran % 5 H Nucleated RBC % 1 H Puncture Site Right Radial ABG pH 7.52 H ABG pCO2 56 H ABG pO2 59 L* ABG HCO3 46 H ABG O2 Saturation 92 ABG Base Excess 20 H VBG pH VBG pCO2 VBG pO2 VBG O2 Sat ([place]) VBG Base Excess FiO2 40 Sodium 142 Potassium 3.8 Chloride 91 L Carbon Dioxide > 40.0 H Anion Gap 11 BUN 15 Creatinine 0.9 Estim Creat Clear Calc 101.5 eGFR > 60 BUN/Creatinine Ratio [address] Glu mg/dL 100 Hemoglobin A1c 5.1 Calculated Osmolality 284 Lactic Acid Calcium 8.6 Corrected Calcium 9.0 Phosphorus 2.5 Magnesium 2.3 Total Bilirubin 0.7 AST 17 ALT 12 Alkaline Phosphatase 34 L D Total Protein 5.5 L Albumin 3.5 Globulin 2.0 L Albumin/Globulin Ratio 1.8 ABG Interpretation ABG results: 04/30/25 04/30/25 04/30/25 10:27 13:47 16:29 ABG pH 7.21 L 7.20 L ABG pCO2 134 H* 134 H* ABG pO2 79 L 67 L ABG HCO3 53 H 52 H ABG O2 Saturation 95 93 ABG Base Excess 19 H 18 H VBG pH 7.31 L VBG pCO2 102 H VBG pO2 52 VBG Base Excess 20 H 04/30/25 05/01/25 05/02/25 20:19 05:52 00:09 ABG pH 7.27 L 7.36 ABG pCO2 124 H* D 98 H* D ABG pO2 60 L 63 L ABG HCO3 56 H 56 H ABG O2 Saturation 91 92 ABG Base Excess 23 H 25 H VBG pH 7.57 VBG pCO2 51 D VBG pO2 90 H D VBG Base Excess 21 H 05/02/25 05/02/25 05/02/25 04:50 05:57 16:10 ABG pH 7.51 H D 7.31 L D 7.52 H D ABG pCO2 64 H D 89 H* D 61 H D ABG pO2 55 L* 181 H D 62 L D ABG HCO3 51 H 44 H 49 H ABG O2 Saturation 91 98 93 ABG Base Excess 24 H 14 H 23 H VBG pH VBG pCO2 VBG pO2 VBG Base Excess 05/03/25 03:49 ABG pH 7.52 H ABG pCO2 56 H ABG pO2 59 L* ABG HCO3 46 H ABG O2 Saturation 92 ABG Base Excess 20 H VBG pH VBG pCO2 VBG pO2 VBG Base Excess Quality Measures Quality Measures VTE prophylaxis Advance care planning discussed with:: child (Son) Assessment & Plan Assessment Current Active Medications: Generic Name Dose Route Start Last Admin Trade Name Freq PRN Reason Stop Dose Admin Acetaminophen 650 mg 04/30/25 13:42 Acetaminophen 325 Mg Tablet PO 05/30/25 13:41 Q6H PRN Fever >100.4 or pain Albuterol/Ipratropium 3 ml 05/01/25 06:00 05/03/25 06:37 Albuterol/Ipratropium (Duoneb) Rt Marita 3 Ml Nebu INH 05/31/25 05:59 3 ml Q4H FREDIS Administration Albuterol/Ipratropium 3 ml 05/02/25 07:45 Albuterol/Ipratropium (Duoneb) Rt Marita 3 Ml Nebu INH 06/01/25 07:44 Q2HR PRN SHORTNESS OF BREATH OR WHEEZE Aspirin 81 mg 05/03/25 21:00 Aspirin Ec 81 Mg Tabec PO 06/02/25 20:59 HS FREDIS Atorvastatin Calcium 40 mg 05/03/25 21:00 Atorvastatin Calcium 20 Mg Tablet PO 06/02/25 20:59 HS FREDIS Docusate Sodium 100 mg 04/30/25 13:42 Docusate Sod 100 Mg Capsule PO 05/30/25 13:41 QDAY PRN CONSTIPATION Protocol Enoxaparin Sodium 40 mg 05/01/25 09:00 05/03/25 08:16 Enoxaparin Sod Inj 40 Mg/0.4 Ml Syringe SC 05/15/25 08:59 40 mg QDAY FREDIS Administration Furosemide 40 mg 04/30/25 16:15 05/02/25 08:13 Furosemide Inj 10 Mg/Ml 4ml Vial IVP 05/30/25 16:14 40 mg QDAY FREDIS Administration Azithromycin 500 mg/ Sodium 250 mls @ 250 mls/hr 05/01/25 09:00 05/03/25 08:33 Chloride IV 05/08/25 08:59 250 mls/hr QDAY FREDIS Administration Propofol 1,000 mg in 100 mls @ 3.421 mls/hr 05/02/25 05:54 05/03/25 08:30 Diprivan Ivpb IV 06/01/25 05:53 0 mcg/kg/min .Q24H PRN 0 mls/hr PER PROTOCOL Titration Protocol 5 MCG/KG/MIN Fentanyl Citrate 2,500 mcg in 250 mls @ 2.5 mls/hr 05/02/25 05:55 05/03/25 10:00 Sublimaze Inj 2,500 Mcg/250 Ml Bag IV 05/07/25 05:54 175 mcg/hr .Q24H PRN 17.5 mls/hr PER PROTOCOL Titration Protocol 25 MCG/HR Norepinephrine/Dextrose 8 mg in 250 mls @ 10.691 mls/hr 05/02/25 06:37 05/02/25 10:14 Levophed In D5w 8mg/250ml IV 06/01/25 06:36 0 mcg/kg/min .[id number] PRN 0 mls/hr PER PROTOCOL Titration Protocol 0.05 MCG/KG/MIN Piperacillin Sod/Tazobactam 100 mls @ 25 mls/hr 05/02/25 22:00 05/03/25 05:27 Sod 4.5 gm/ Sodium Chloride IV 05/09/25 21:59 25 mls/hr Q8HR FREDIS Administration Levetiracetam 500 mg 05/02/25 09:30 05/03/25 08:16 Levetiracetam Liqd 500 Mg/5 Ml Udc PO 06/01/25 09:29 500 mg BID FREDIS Administration Methylprednisolone Sodium Succinate 125 mg 04/30/25 14:00 05/03/25 08:16 Methylprednisolone Sod Succ 62.5 Mg/Ml 2ml Vial IVP 05/05/25 13:59 125 mg DAILY FREDIS Administration Midodrine 10 mg 05/02/25 14:00 05/03/25 05:28 Midodrine 5 Mg Tablet PO 06/01/25 13:59 10 mg TID FREDIS Administration Nicotine 14 mg 05/01/25 09:00 05/03/25 08:16 Nicotine Patch 14 Mg/24 Hr Patch.Td24 TOP 05/31/25 08:59 14 mg QDAY FREDIS Administration Ondansetron HCl 4 mg 04/30/25 13:42 Ondansetron Inj 2 Mg/Ml Inj 2 Ml IVP 05/30/25 13:41 Q6H PRN NAUSEA OR VOMITING Protocol Pantoprazole Sodium 40 mg 05/02/25 09:00 05/03/25 08:15 Pantoprazole Inj 40 Mg Vial IVP 06/01/25 08:59 40 mg QDAY FREDIS Administration Sennosides 1 tab 05/03/25 09:00 05/03/25 08:16 Senna Tablet PO 06/02/25 08:59 1 tab QDAY FREDIS Administration Protocol Plan Summary: Patient is a 65 year old male with PMH of severe COPD on 4L home oxygen, HFpEF (EF 55?60%), s/p CABG, AFib, hypertension, hyperlipidemia, chronic tobacco use (1 PPD), and alcohol use disorder who originally presented with acute hypoxic respiratory failure and was placed on BiPAP. He is 1 day status post CODE BLUE with chest compressions and norepinephrine leading to ROSC. He was extubated to nasal cannula today after being weaned from sedation and the ventilator. Neuro #History of seizure disorder - Nurse reported seizure-like activity prior to CODE BLUE in the form of full body convulsions. - Nurse reported smell of emesis prior to CODE BLUE. - Patient denies history of seizure disorder or being worked up for a seizure, though there is documented history. Plan: - Neurology consulted, recommends possible MRI or CT scan outpatient, will defer for now. - Continue Keppra 500 mg p.o. twice daily. - Follow-up with neurology. - Neurology consulted, appreciate recommendations Cardiac #Status post cardiac arrest (PEA) #Undifferentiated shock. - Patient is 1 day post cardiac arrest with PEA, achieving ROSC after 2 rounds of ACLS, 2 doses of Epi and 1 dose of bicarb. - Initially was hypertensive after code blue, then BP dropped to MAP of 52, started on levo drip. - Troponin was within normal limits. - Has been off of Levophed Plan: - Hold parameters on midodrine p.o. 3 times daily for SBP below 120 #Heart failure with preserved ejection fraction, EF 55 to 60% #Hypertension, by history - Echo from 03/27/2025 showed Normal LV size and function with an estimated EF of 55 to 60%. Grade II Diastolic dysfunction. - Net -3.2 L since admission. Plan: - Patient is euvolemic currently, will hold Lasix for now #Hx of CAD s/p CABG. #Hx of hyperlipidemia. - Patient does not take anticoagulation or statin at home. Plan: - Start aspirin 81 mg daily. - Start atorvastatin 40 mg daily. #Atrial fibrillation, by history - Currently in sinus rhythm. Pulmonary #Possible aspiration. #Acute hypoxic respiratory failure. #Severe COPD On 4 L at home #Active tobacco smoking status, nicotine dependence #Mechanical ventilation, status post extubation 05/03 - Patient was intubated multiple times in past due to severe COPD, he is chronic CO2 retainer and is on 4L home O2. He continues to smoke tobacco despite health problems. - Strong smell of emesis and possible seizure activity was noticed by nurse prior to the patient's CODE BLUE, may have led to possible aspiration pneumonia. Patient also has excessive mucus in his airways. - Last ABG 05/03/2025: pH 7.52, PCO2 56, PO2 59, HCO3 46, O2 saturation 92. -Extubated to nasal cannula on 05/03/2025. Plan: - Continue on Azithromycin and Zosyn. - Continue scheduled DuoNebs, added DuoNebs as needed every 4 hours - Continue IV methylprednisolone 125 mg daily. #Pleural Effusion - Bedside ultrasound demonstrated left-sided pleural effusion. Plan: - Will discuss with patient in a.m., will consider thoracentesis. GI -No pertinent problems. Renal -No pertinent problems Infectious Disease #Possible aspiration pneumonia. - See respiratory. - Possibly secondary to seizure. Plan: - Continue azithromycin and Zosyn. - Blood cultures and sputum culture ordered. Endocrine -No pertinent problems. Heme #Normocytic anemia. #Thrombocytopenia. - On admission to ICU hgb 12.2, PLT 98. - Hemoglobin 11.1 hematocrit 33.6 platelets 95 on 05/03/2025. Plan: - Monitor with daily labs. MSK -No pertinent problems. Skin -No pertinent problems. Urogenital -No pertinent problems. Lines/Access - 2 peripheral IVs. 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 - Cardiac diet initiated. Sedation/Analgesia - No sedation. DVT Prophylaxis - Lovenox 40 mg subcutaneous daily. GI Prophylaxis -Protonix 40 mg daily. Code Status - Full Code. Disposition: - Patient was extubated to nasal cannula 05/03/2025. The patient was seen and discussed with my attending Dr. Dia Issa M.D. and my senior resident Matteo Patel M.D. PGY-2. Skyler Shukla D.O. PGY-1.
--- NOTE | 2025-05-03 10:43 | ESPR_ITS ---
Documentation for date of: 05/03/25 Subjective Subjective Interval history: Patient seen at bedside, now extubated and wearing O2 mask, sitting up in bed. Patient reports that he has never had a seizure in the past. Expressed that he is willing to complete EEG and MRI brain w/ contrast. Exam Vital Signs Temp Pulse Resp BP Pulse Ox O2 Del Method O2 Flow Rate 97.3 F 74 22 H 150/76 H 92 L Mechanical Ventilation 45 05/03/25 08:00 05/03/25 10:01 05/03/25 06:39 05/03/25 10:01 05/03/25 10:01 05/03/25 08:00 05/02/25 14:37 FiO2 35 05/03/25 08:00 Narrative Exam General: No acute distress, well nourished HENT: Normocephalic, atraumatic, hearing intact to conversation at normal volume, moist oral mucosa Neck: Supple, non-tender, no JVD, no lymphadenopathy Lungs: Non-labored respirations, symmetric chest rise, on O2 mask Heart: Peripheral pulses intact bilaterally Abdomen: Soft, non-tender, non-distended Musculoskeletal: Normal range of motion and strength Skin: Skin is warm, dry. Bilateral venous stasis dermatitis on LE up to knee. Psychiatric: Cooperative, appropriate mood and affect Neurologic: Mental status: Orientation: Oriented to person, place, and situation Communication: Patient is cooperative and can follow simple instructions Language: Speech fluent, normal rate and volume, comprehension intact Cranial nerves: CN II: Visual hein intact CN III: Pupils equal, round, and reactive to light CN III, IV, : No gaze deviation, no nystagmus Horizontal pursuit: intact Vertical pursuit: intact Ptosis: none CN V: Facial sensation to light touch intact bilaterally at the forehead, cheeks, and jaw line CN VII: Face symmetric, no facial droop appreciated CN VIII: Able to hear and respond to conversation at normal volume CN IX, X: Palate elevation symmetric, uvula midline CN XI: Head turn and shoulder shrug strong, symmetric bilaterally CN XII: Normal tongue protrusion without deviation, no fasciculations Motor: Normal bulk and tone No atrophy No abnormal movements or fasciculations Muscle strength: Shoulder abduction: R 5/5 L 5/5 Elbow flexion: R 5/5 L 5/5 Elbow extension: R 5/5 L 5/5 Hip flexion: R 5/5 L 5/5 Hip extension: R 5/5 L 5/5 Sensory: RUE: Light touch intact LUE: Light touch intact RLE: Light touch intact LLE: Light touch intact Reflexes: Biceps (C5-6): R 2+ L 2+ Brachioradialis (C5-6): R 2+ L 2+ Triceps (C7-8): R 2+ L 2+ Patellae (L3-4): R 2+ L 1+ Achilles (S1-2):R 2+ L 2+ No clonus Cerebellum: RUE: No dysmetria (finger to nose) LUE: No dysmetria (finger to nose) RLE: No dysmetria (heel to mckeon) LLE: No dysmetria (heel to mckeon) Romberg: deferred Gait: deferred Objective Labs 05/03/25 04:40 05/03/25 04:40 Labs: Laboratory Results - last 24 hr 05/02/25 05/02/25 05/02/25 00:09 11:12 16:10 WBC RBC Hgb Hct MCV MCH MCHC RDW Std Deviation Plt Count Neut % (Auto) Lymph % (Auto) [place] % (Auto) Eos % (Auto) Baso % (Auto) Neut # (Auto) Lymph # (Auto) [place] # (Auto) Eos # (Auto) Baso # (Auto) Immature Gran # (Auto) Absolute Nucleated RBC Immature Gran % Nucleated RBC % Puncture Site Right Radial ABG pH 7.52 H D ABG pCO2 61 H D ABG pO2 62 L D ABG HCO3 49 H ABG O2 Saturation 93 ABG Base Excess 23 H VBG pH 7.57 VBG pCO2 51 D VBG pO2 90 H D VBG O2 Sat ([place]) 97 VBG Base Excess 21 H FiO2 45 Sodium Potassium Chloride Carbon Dioxide Anion Gap BUN Creatinine Estim Creat Clear Calc eGFR BUN/Creatinine Ratio Glucose Estimated Ave Glu mg/dL Hemoglobin A1c Calculated Osmolality Lactic Acid 1.5 Calcium Corrected Calcium Phosphorus Magnesium Total Bilirubin AST ALT Alkaline Phosphatase Total Protein Albumin Globulin Albumin/Globulin Ratio 05/03/25 05/03/25 03:49 04:40 WBC 8.2 RBC 3.67 L Hgb 11.1 L Hct 33.6 L MCV 92 MCH 30.2 MCHC 33.0 RDW Std Deviation 48.6 H Plt Count 95 L D Neut % (Auto) 81 H Lymph % (Auto) 7 L [place] % (Auto) 6 Eos % (Auto) 0 Baso % (Auto) 1 Neut # (Auto) 6.6 Lymph # (Auto) 0.6 L [place] # (Auto) 0.5 Eos # (Auto) 0.0 Baso # (Auto) 0.1 Immature Gran # (Auto) 0.42 H Absolute Nucleated RBC 0.05 H Immature Gran % 5 H Nucleated RBC % 1 H Puncture Site Right Radial ABG pH 7.52 H ABG pCO2 56 H ABG pO2 59 L* ABG HCO3 46 H ABG O2 Saturation 92 ABG Base Excess 20 H VBG pH VBG pCO2 VBG pO2 VBG O2 Sat (Osmin) VBG Base Excess FiO2 40 Sodium 142 Potassium 3.8 Chloride 91 L Carbon Dioxide > 40.0 H Anion Gap 11 BUN 15 Creatinine 0.9 Estim Creat Clear Calc 101.5 eGFR > 60 BUN/Creatinine Ratio [address] Glu mg/dL 100 Hemoglobin A1c 5.1 Calculated Osmolality 284 Lactic Acid Calcium 8.6 Corrected Calcium 9.0 Phosphorus 2.5 Magnesium 2.3 Total Bilirubin 0.7 AST 17 ALT 12 Alkaline Phosphatase 34 L D Total Protein 5.5 L Albumin 3.5 Globulin 2.0 L Albumin/Globulin Ratio 1.8 ABG Interpretation ABG results: 04/30/25 04/30/25 04/30/25 10:27 13:47 16:29 ABG pH 7.21 L 7.20 L ABG pCO2 134 H* 134 H* ABG pO2 79 L 67 L ABG HCO3 53 H 52 H ABG O2 Saturation 95 93 ABG Base Excess 19 H 18 H VBG pH 7.31 L VBG pCO2 102 H VBG pO2 52 VBG Base Excess 20 H 04/30/25 05/01/25 05/02/25 20:19 05:52 00:09 ABG pH 7.27 L 7.36 ABG pCO2 124 H* D 98 H* D ABG pO2 60 L 63 L ABG HCO3 56 H 56 H ABG O2 Saturation 91 92 ABG Base Excess 23 H 25 H VBG pH 7.57 VBG pCO2 51 D VBG pO2 90 H D VBG Base Excess 21 H 05/02/25 05/02/25 05/02/25 04:50 05:57 16:10 ABG pH 7.51 H D 7.31 L D 7.52 H D ABG pCO2 64 H D 89 H* D 61 H D ABG pO2 55 L* 181 H D 62 L D ABG HCO3 51 H 44 H 49 H ABG O2 Saturation 91 98 93 ABG Base Excess 24 H 14 H 23 H VBG pH VBG pCO2 VBG pO2 VBG Base Excess 05/03/25 03:49 ABG pH 7.52 H ABG pCO2 56 H ABG pO2 59 L* ABG HCO3 46 H ABG O2 Saturation 92 ABG Base Excess 20 H VBG pH VBG pCO2 VBG pO2 VBG Base Excess Quality Measures Quality Measures VTE prophylaxis Advance care planning discussed with:: patient Assessment & Plan Assessment Current Active Medications: Generic Name Dose Route Start Last Admin Trade Name Freq PRN Reason Stop Dose Admin Acetaminophen 650 mg 04/30/25 13:42 Acetaminophen 325 Mg Tablet PO 05/30/25 13:41 Q6H PRN Fever >100.4 or pain Albuterol/Ipratropium 3 ml 05/01/25 06:00 05/03/25 06:37 Albuterol/Ipratropium (Duoneb) Rt Marita 3 Ml Nebu INH 05/31/25 05:59 3 ml Q4H FREDIS Administration Albuterol/Ipratropium 3 ml 05/02/25 07:45 Albuterol/Ipratropium (Duoneb) Rt Marita 3 Ml Nebu INH 06/01/25 07:44 Q2HR PRN SHORTNESS OF BREATH OR WHEEZE Aspirin 81 mg 05/03/25 21:00 Aspirin Ec 81 Mg Tabec PO 06/02/25 20:59 HS FREDIS Atorvastatin Calcium 40 mg 05/03/25 21:00 Atorvastatin Calcium 20 Mg Tablet PO 06/02/25 20:59 HS FREDIS Docusate Sodium 100 mg 04/30/25 13:42 Docusate Sod 100 Mg Capsule PO 05/30/25 13:41 QDAY PRN CONSTIPATION Protocol Enoxaparin Sodium 40 mg 05/01/25 09:00 05/03/25 08:16 Enoxaparin Sod Inj 40 Mg/0.4 Ml Syringe SC 05/15/25 08:59 40 mg QDAY FREDIS Administration Furosemide 40 mg 04/30/25 16:15 05/02/25 08:13 Furosemide Inj 10 Mg/Ml 4ml Vial IVP 05/30/25 16:14 40 mg QDAY FREDIS Administration Azithromycin 500 mg/ Sodium 250 mls @ 250 mls/hr 05/01/25 09:00 05/03/25 08:33 Chloride IV 05/08/25 08:59 250 mls/hr QDAY FREDIS Administration Propofol 1,000 mg in 100 mls @ 3.421 mls/hr 05/02/25 05:54 05/03/25 08:30 Diprivan Ivpb IV 06/01/25 05:53 0 mcg/kg/min .Q24H PRN 0 mls/hr PER PROTOCOL Titration Protocol 5 MCG/KG/MIN Fentanyl Citrate 2,500 mcg in 250 mls @ 2.5 mls/hr 05/02/25 05:55 05/03/25 10:00 Sublimaze Inj 2,500 Mcg/250 Ml Bag IV 05/07/25 05:54 175 mcg/hr .Q24H PRN 17.5 mls/hr PER PROTOCOL Titration Protocol 25 MCG/HR Norepinephrine/Dextrose 8 mg in 250 mls @ 10.691 mls/hr 05/02/25 06:37 05/02/25 10:14 Levophed In D5w 8mg/250ml IV 06/01/25 06:36 0 mcg/kg/min .[id number] PRN 0 mls/hr PER PROTOCOL Titration Protocol 0.05 MCG/KG/MIN Piperacillin Sod/Tazobactam 100 mls @ 25 mls/hr 05/02/25 22:00 05/03/25 05:27 Sod 4.5 gm/ Sodium Chloride IV 05/09/25 21:59 25 mls/hr Q8HR FREDIS Administration Levetiracetam 500 mg 05/02/25 09:30 05/03/25 08:16 Levetiracetam Liqd 500 Mg/5 Ml Udc PO 06/01/25 09:29 500 mg BID FREDIS Administration Methylprednisolone Sodium Succinate 125 mg 04/30/25 14:00 05/03/25 08:16 Methylprednisolone Sod Succ 62.5 Mg/Ml 2ml Vial IVP 05/05/25 13:59 125 mg DAILY FREDIS Administration Midodrine 10 mg 05/03/25 10:33 Midodrine 5 Mg Tablet PO 06/01/25 13:59 TID FREDIS Nicotine 14 mg 05/01/25 09:00 05/03/25 08:16 Nicotine Patch 14 Mg/24 Hr Patch.Td24 TOP 05/31/25 08:59 14 mg QDAY FREDIS Administration Ondansetron HCl 4 mg 04/30/25 13:42 Ondansetron Inj 2 Mg/Ml Inj 2 Ml IVP 05/30/25 13:41 Q6H PRN NAUSEA OR VOMITING Protocol Pantoprazole Sodium 40 mg 05/02/25 09:00 05/03/25 08:15 Pantoprazole Inj 40 Mg Vial IVP 06/01/25 08:59 40 mg QDAY FREIDS Administration Sennosides 1 tab 05/03/25 09:00 05/03/25 08:16 Senna Tablet PO 06/02/25 08:59 1 tab QDAY FREDIS Administration Protocol Plan #Seizure episode? Nurse reported he had seizure-like activity right before code blue. Per chart review, patient has a history fo seizure disorder but does not take anti-seizure medications at home. When asked, patient reports that he has never had a seizure before. Blood glucose: 139 --> 159 Lactic acid high 5.29 March 2025: TSH low, T4 WNL EKG 04/30 NSR Patient has not had any more recurrence of similar episodes after resuscitated. Plan to downgrade 05/04 Plan: - Routine spot EEG - ok to do outpatient if needed, patient expressed interest in completing EEG inpatient - MRI w/ contrast to look for structural causes of seizure - ok to do outpatient, patient expressed interest in completing MRI - Continue Keppra 500 mg BID - Patient cannot drive until seizure workup completed #Status post cardiac arrest #Undifferentiated shock Patient had cardiac arrest with PEA, achieved ROSC after 2 rounds of ACLS, 2 doses of Epi was given and 1 dose of bicarb. Initially was hypertensive after code blue, then BP dropped to MAP of 52, started on NEpi drip. Troponin WNL Plan: - Management per primary team #Hx of HFpEF with EF 55-60% #Hx of hypertension Echo from 03/27/2025 showed Normal LV size and function with an estimated EF of 55 to 60%. Grade II Diastolic dysfunction. Plan: - Management per primary team - Lasix IV #Hx of CAD s/p CABG #Hx of hyperlipidemia Troponin WNL No home med statin Plan: - Management per primary team #Hx of Afib Currently in sinus rhythm No documented home anticoagulation Plan: - Management per primary team - Enoxaparin 40 mg daily #Possible aspiration PNA #Acute hypoxic respiratory failure - resolved #Severe COPD on 4L home O2 #Active tobacco smoking status #Mechanical ventilation, now extubated Patient was intubated multiple times in past due to severe COPD, he is chronic CO2 retainer and is on 4L home O2. He continues to smoke tobacco despite health problems. Excessive mucus in his airways. He was intubated and started on MV volume control: TV 460, FiO2 100%, PEEP 5, RR 20. Successfully extubated 05/03 CXR 04/30: Significant pneumonia left base Mild to moderate left pleural fluid Plan: - Management per primary - azithromycin and cefepime IV, DuoNebs, IV steroids - Pending blood and sputum cultures #Normocytic anemia #Thrombocytopenia On admission to ICU hgb 12.2, PLT 98. Plan: - Management per primary - continue to monitor Plan discussed with Dr. Candy Moya, PGY1 Attending Provider Attestation/Addendum I personally have seen and examined the patient at the bedside and agree with resident's findings, assessment and plan of care. The seizure during the witnessed code could have been secondary to hypoxia. Will hold off on the Keppra return tomorrow while we are getting the EEG and MRI brain done to elevate further. Patient is neurologically afocal.
[2025-05-03 11:29] LABS: Platelet Count 95 Thou/mm3 (140-440)
--- NOTE | 2025-05-03 17:02 | PC.SS ---
Update: Patient has been extubated. On 6L nasal cannula. Swallow evaluation conducted. Patient P.O. feeding. Yoedr catheter in place. Patient is afebrile. Patient not receiving pressor support.
[2025-05-03] MEDS: ATORVASTATIN CALCIUM 20 MG TABLET 40 MG PO (21:08)
[2025-05-03] MEDS: ASPIRIN EC 81 MG TABEC PO (21:08)
[2025-05-04] VITALS (28 sets, daily range): BP systolic 119–161; BP diastolic 54–90; PULSE 65–90; RESP 18–70; TEMP 36.2–37.2; O2SAT 86–99
[2025-05-04] MEDS: ALBUTEROL/IPRATROPIUM (Duoneb) RT SOL 3 ML NEBU INH ×6 (02:47→22:56)
[2025-05-04] MEDS: PIPER/TAZO INJ 4.5 GM in SODIUM CHLORIDE 0.9% (POP) 100 ML IV ×2 (06:14→22:41)
[2025-05-04 06:53] LABS: Basophils # (Auto) 0.0 Thou/mm3 (0.0-0.2); Basophils % (Auto) 0 % (0-2.5); Eosinophils # (Auto) 0.0 Thou/mm3 (0.0-0.5); Eosinophils % (Auto) 0 % (0-10); Hematocrit 33.5 % (41.0-53.0); Hemoglobin 11.0 g/dL (13.5-16.0); Immature Granulocytes Auto 0.07 Thou/mm3 (0.00-0.00); Lymphocytes # (Auto) 0.5 Thou/mm3 (1.0-4.8); Lymphocytes % (Auto) 6 % (10-50); Mean Corpuscular HGB Conc 32.8 g/dl (31.0-37.0); Mean Corpuscular Hemoglobin 30.5 pg (25.0-35.0); Mean Corpuscular Volume 93 fL (80-100); Monocytes # (Auto) 0.5 Thou/mm3 (0.0-0.8); Monocytes % (Auto) 6 % (0-12); Neutrophils # (Auto) 7.6 Thou/mm3 (1.8-7.7); Neutrophils % (Auto) 87 % (37-80); Nucleated Red Blood Cell # 0.00 Thou/mm3 (0.00-0.00); Nucleated Red Blood Cell % 0 /100 WBC (0); Platelet Count 100 Thou/mm3 (140-440); RDW Standard Deviation 49.2 fL (35.1-43.9); Red Blood Count 3.61 Miln/mm3 (4.50-5.90); White Blood Count 8.7 Thou/mm3 (3.8-10.6)
[2025-05-04 07:18] LABS: Alanine Aminotransferase 11 U/L (10-49); Albumin, Serum 3.6 gm/dL (3.4-4.8); Albumin/Globulin Ratio 1.7 (1.2-2.2); Alkaline Phosphatase 39 U/L (46-116); Anion Gap 10 (7-16); Aspartate Amino Transferase 12 U/L (0-34); BUN/Creatinine Ratio 14 Ratio (12-20); Bilirubin,Total 0.7 mg/dL (0.3-1.2); Blood Urea Nitrogen 13 mg/dL (9-23); Calcium 8.4 mg/dL (8.3-10.6); Calcium (Corrected) 8.7 mg/dL (8.5-10.1); Carbon Dioxide > 40.0 mMol/L (20.0-31.0); Chloride 94 mMol/L (98-107); Creatinine (Component) 0.9 mg/dL (0.6-1.3); Estimated Creatinine Clearance 100.6 mL/min (>60); Globulin 2.1 gm/dL (2.3-3.5); Glucose 120 mg/dL (74-106); Magnesium 2.0 mg/dL (1.6-2.6); Osmolality,Calculated 287 (275-295); Phosphorous 3.0 mg/dL (2.4-5.1); Potassium 3.6 mMol/L (3.4-5.1); Sodium 144 mMol/L (136-145); Total Protein 5.7 gm/dL (5.7-8.2); eGFR > 60 See Note
--- NOTE | 2025-05-04 10:31 | ESPR_ITS ---
<Statement entered by Dia Issa MD - 05/05/25 08:35> TOTAL TIME: 45MINUTES ON DIRECT MEDICAL CARE, MANAGEMENT - COORDINATION AND COUNSELING > 50% OF TOTAL TIME I saw and evaluated the patient. I reviewed the resident?s note and agree with findings and plan as documented in the resident?s note. remains extubated in stable condition cont current medical management repeated bedside US of left effusion - smaller today no obvious fibrinous exudates patient declined consent for thoracentesis recommend daily CXR and cont diuresis if effusion persists or if worse - repeat US to see if there is evid of fibrin formation and if there is - order thoracentesis. pt did say he would reconsider agreeing to consent if we felt it was absolutely necessary stable to trx out of ICU Documentation for date of: 05/04/25 Subjective Subjective Interval history: HPI A 65-year-old male patient with a past medical history of severe COPD on 4 L of home oxygen, HFpEF, CAD status post CABG, A-fib, hypertension, hyperlipidemia, chronic smoker, questionable history of alcohol use disorder, was admitted to the hospital due to acute on chronic hypercapnic hypoxic respiratory failure secondary to pneumonia and COPD exacerbation and placed on BiPAP. At the hospital patient had a possible seizure episode morning of 05/02/2025 and coded with PEA. ROSC was achieved after 10 minutes and 2 doses of epinephrine with chest compressions. Patient was intubated and sedated and was admitted to ICU. 05/03/2025 Patient is off pressors not requiring midodrine, weaned off sedation, following commands. Switched from volume control to pressure support this morning, hypercapnic at baseline, will allow permissive hypercapnia tolerated SBT well, RSBI< 105, Extubated today to Cool Mist then transitioned to nasal cannula, tolerating well. Continue to hold Lasix, currently euvolemic, bedside US does show left pleural effusion, will consider tapping after discussion with patient in AM. Will defer MRI/EEG, documented history of Seizures, though patient denies it. Started on aspirin and atorvastatin. 05/04/2025 Continues to remain off sedation and pressors, no current complaints, Keppra held by neurology yesterday, continue Zosyn and azithromycin, resumed furosemide, change methylprednisolone 40 mg daily for 3 more days, bedside ultrasound shows minimal fluid, transudative effusion noted around the effusion atelectatic lung versus consolidation with air bronchogram findings due to excessive mucus. Patient has a good cough reflex, is clearing out, advised against antitussives. Referral to physical therapy Exam Vital Signs Temp Pulse Resp BP Pulse Ox O2 Del Method O2 Flow Rate 99.0 F 81 18 146/61 H 97 Nasal Cannula 2 05/04/25 08:00 05/04/25 10:15 05/04/25 10:15 05/04/25 10:00 05/04/25 10:15 05/04/25 08:00 05/04/25 10:15 FiO2 30 05/03/25 12:56 Narrative Exam General: Awake and in no acute distress. Conversational and non-toxic appearing. Neurologic: GCS 15. Alert and oriented x3, no gross neurological deficit, and patient able to move all 4 extremities. HEENT: Normocephalic, atraumatic, mucous membranes moist. Heart: Regular rate and rhythm, normal S1 and S2, no murmurs. Lungs: Wheezing in the bases bilaterally. Abdomen: Obese, nondistended. No guarding or rebound tenderness. Denies pain on palpation. Extremities: 1+ edema. 2+ radial pulses bilaterally. 1+ dorsalis pedis pulses bilaterally. Skin: Venous stasis dermatitis in the lower extremities bilaterally below the knee. Warm. Dry. Objective Labs 05/04/25 04:25 05/04/25 04:25 Labs: Laboratory Results - last 24 hr 05/03/25 05/04/25 04:40 04:25 WBC 8.7 RBC 3.61 L Hgb 11.0 L Hct 33.5 L MCV 93 MCH 30.5 MCHC 32.8 RDW Std Deviation 49.2 H Plt Count 95 L D 100 L Neut % (Auto) 87 H Lymph % (Auto) 6 L [place] % (Auto) 6 Eos % (Auto) 0 Baso % (Auto) 0 Neut # (Auto) 7.6 Lymph # (Auto) 0.5 L [place] # (Auto) 0.5 Eos # (Auto) 0.0 Baso # (Auto) 0.0 Immature Gran # (Auto) 0.07 H Absolute Nucleated RBC 0.00 Immature Gran % 1 H Nucleated RBC % 0 Sodium 144 Potassium 3.6 Chloride 94 L Carbon Dioxide > 40.0 H Anion Gap 10 BUN 13 Creatinine 0.9 Estim Creat Clear Calc 100.6 eGFR > 60 BUN/Creatinine Ratio 14 Glucose 120 H Calculated Osmolality 287 Calcium 8.4 Corrected Calcium 8.7 Phosphorus 3.0 Magnesium 2.0 Total Bilirubin 0.7 AST 12 ALT 11 Alkaline Phosphatase 39 L Total Protein 5.7 Albumin 3.6 Globulin 2.1 L Albumin/Globulin Ratio 1.7 ABG Interpretation ABG results: 04/30/25 04/30/25 04/30/25 10:27 13:47 16:29 ABG pH 7.21 L 7.20 L ABG pCO2 134 H* 134 H* ABG pO2 79 L 67 L ABG HCO3 53 H 52 H ABG O2 Saturation 95 93 ABG Base Excess 19 H 18 H VBG pH 7.31 L VBG pCO2 102 H VBG pO2 52 VBG Base Excess 20 H 04/30/25 05/01/25 05/02/25 20:19 05:52 00:09 ABG pH 7.27 L 7.36 ABG pCO2 124 H* D 98 H* D ABG pO2 60 L 63 L ABG HCO3 56 H 56 H ABG O2 Saturation 91 92 ABG Base Excess 23 H 25 H VBG pH 7.57 VBG pCO2 51 D VBG pO2 90 H D VBG Base Excess 21 H 05/02/25 05/02/25 05/02/25 04:50 05:57 16:10 ABG pH 7.51 H D 7.31 L D 7.52 H D ABG pCO2 64 H D 89 H* D 61 H D ABG pO2 55 L* 181 H D 62 L D ABG HCO3 51 H 44 H 49 H ABG O2 Saturation 91 98 93 ABG Base Excess 24 H 14 H 23 H VBG pH VBG pCO2 VBG pO2 VBG Base Excess 05/03/25 03:49 ABG pH 7.52 H ABG pCO2 56 H ABG pO2 59 L* ABG HCO3 46 H ABG O2 Saturation 92 ABG Base Excess 20 H VBG pH VBG pCO2 VBG pO2 VBG Base Excess Quality Measures Quality Measures VTE prophylaxis Advance care planning discussed with:: patient Assessment & Plan Assessment Current Active Medications: Generic Name Dose Route Start Last Admin Trade Name Freq PRN Reason Stop Dose Admin Acetaminophen 650 mg 04/30/25 13:42 Acetaminophen 325 Mg Tablet PO 05/30/25 13:41 Q6H PRN Fever >100.4 or pain Albuterol/Ipratropium 3 ml 05/01/25 06:00 05/04/25 10:15 Albuterol/Ipratropium (Duoneb) Rt Marita 3 Ml Nebu INH 05/31/25 05:59 3 ml Q4H FREDIS Administration Albuterol/Ipratropium 3 ml 05/02/25 07:45 Albuterol/Ipratropium (Duoneb) Rt Marita 3 Ml Nebu INH 06/01/25 07:44 Q2HR PRN SHORTNESS OF BREATH OR WHEEZE Aspirin 81 mg 05/03/25 21:00 05/03/25 21:08 Aspirin Ec 81 Mg Tabec PO 06/02/25 20:59 81 mg HS FREDIS Administration Atorvastatin Calcium 40 mg 05/03/25 21:00 05/03/25 21:08 Atorvastatin Calcium 20 Mg Tablet PO 06/02/25 20:59 40 mg HS FREDIS Administration Docusate Sodium 100 mg 04/30/25 13:42 Docusate Sod 100 Mg Capsule PO 05/30/25 13:41 QDAY PRN CONSTIPATION Protocol Enoxaparin Sodium 40 mg 05/01/25 09:00 05/03/25 08:16 Enoxaparin Sod Inj 40 Mg/0.4 Ml Syringe SC 05/15/25 08:59 40 mg QDAY FREDIS Administration Furosemide 40 mg 04/30/25 16:15 05/02/25 08:13 Furosemide Inj 10 Mg/Ml 4ml Vial IVP 05/30/25 16:14 40 mg QDAY FREDIS Administration Azithromycin 500 mg/ Sodium 250 mls @ 250 mls/hr 05/01/25 09:00 05/03/25 08:33 Chloride IV 05/08/25 08:59 250 mls/hr QDAY FREDIS Administration Piperacillin Sod/Tazobactam 100 mls @ 25 mls/hr 05/02/25 22:00 05/04/25 06:14 Sod 4.5 gm/ Sodium Chloride IV 05/09/25 21:59 25 mls/hr Q8HR FREDIS Administration Levetiracetam 500 mg 05/02/25 09:30 05/03/25 08:16 Levetiracetam Liqd 500 Mg/5 Ml Udc PO 06/01/25 09:29 500 mg BID FREDIS Administration Methylprednisolone Sodium Succinate 40 mg 05/05/25 09:00 Methylprednisolone Sod Succ 40 Mg Vial IVP 05/08/25 08:59 QDAY FREDIS Midodrine 10 mg 05/03/25 10:33 05/04/25 06:13 Midodrine 5 Mg Tablet PO 06/01/25 13:59 Not Given TID [facility] Nicotine 14 mg 05/01/25 09:00 05/03/25 08:16 Nicotine Patch 14 Mg/24 Hr Patch.Td24 TOP 05/31/25 08:59 14 mg QDAY FREDIS Administration Ondansetron HCl 4 mg 04/30/25 13:42 Ondansetron Inj 2 Mg/Ml Inj 2 Ml IVP 05/30/25 13:41 Q6H PRN NAUSEA OR VOMITING Protocol Pantoprazole Sodium 40 mg 05/04/25 09:00 Pantoprazole 40 Mg Tablet PO 05/05/25 09:01 QDAY [facility] Sennosides 1 tab 05/03/25 09:00 05/03/25 08:16 Senna Tablet PO 06/02/25 08:59 1 tab QDAY [facility] Administration Protocol Plan Summary: Patient is a 65 year old male with PMH of severe COPD on 4L home oxygen, HFpEF (EF 55?60%), s/p CABG, AFib, hypertension, hyperlipidemia, chronic tobacco use (1 PPD), and alcohol use disorder who originally presented with acute hypoxic respiratory failure and was placed on BiPAP. He is 1 day status post CODE BLUE with chest compressions and norepinephrine leading to ROSC. He was extubated to nasal cannula today after being weaned from sedation and the ventilator. Neuro #Seizure episode #Seizure disorder, by history Differential diagnosis: Provoked seizure, seizure disorder Diagnostic workup: - Nurse reported seizure-like activity prior to CODE BLUE in the form of full body convulsions. - Nurse reported smell of emesis prior to CODE BLUE. - Patient denies history of seizure disorder or being worked up for a seizure, though there is documented history. Treatment: - Neurology consulted, recommend MRI and EEG, will consider outpatient - Keppra being held by neurology - Neurology consulted, appreciate recommendations - Referral to speech therapy - Aspiration precaution, seizure precautions Follow-up: - Follow-up neuro recommendations Cardiac #Status post cardiac arrest (PEA). Differential diagnosis: Secondary to respiratory failure, seizure versus aspiration event Diagnostic workup: - Patient is 1 day post cardiac arrest with PEA, achieving ROSC after 2 rounds of ACLS, 2 doses of Epi and 1 dose of bicarb. - Initially was hypertensive after code blue, then BP dropped to MAP of 52, patient off of Levophed, did require low-dose pressors. - Troponin within normal limits - Did present with pneumonia left base, no worsening of x-ray noted Treatment: -Midodrine 10 3 times daily, hold for SBP below 120 -Currently stable, treating underlying problems as documented in other sections #Heart failure with preserved ejection fraction, EF 55 to 60% #Hypertension, by history Diagnostic workup: - Echo from 03/27/2025 showed Normal LV size and function with an estimated EF of 55 to 60%. Grade II Diastolic dysfunction. - Net -3.5 L since admission. - Lasix was held yesterday Treatment: -Started on Lasix 40 mg IV daily -Strict intake and output -Daily weight -Fluid restriction 1500 cc #CAD s/p CABG, by history #Hyperlipidemia, by history Diagnostic workup: -Patient has history of coronary artery disease status post CABG and hyperlipidemia Treatment: -Continue aspirin 81 mg daily and atorvastatin 40 mg daily -Lipid panel 02/02/2025 shows triglycerides 78, cholesterol 220, LDL 151, HDL 53 #Atrial fibrillation, by history Differential diagnosis: ?Multifocal atrial tachycardia Diagnostic workup: -Patient's EKG shows sinus rhythm, EKGs from past reviewed, no evidence of atrial fibrillation -Patient may have multifocal atrial tachycardia in the past -Not on any anticoagulation or rate control/rhythm control medication, not on any anticoagulation Treatment: -Continue telemetry monitoring Pulmonary #Aspiration pneumonia #Acute hypoxic respiratory failure. #Severe COPD, on 4 L at home #Active tobacco smoking status, nicotine dependence #Mechanical ventilation, status post extubation 05/03 Diagnostic workup: - Patient was intubated multiple times in past due to severe COPD, he is chronic CO2 retainer and is on 4L home O2. He continues to smoke tobacco despite health problems. - Strong smell of emesis and possible seizure activity was noticed by nurse prior to the patient's CODE BLUE, may have led to possible aspiration pneumonia. Patient also has excessive mucus in his airways. - Last ABG 05/03/2025: pH 7.52, PCO2 56, PO2 59, HCO3 46, O2 saturation 92. - Extubated to nasal cannula on 05/03/2025. -Transition to Zosyn as patient has history of Pseudomonas resistant to cefepime in the past Treatment: - Continue on Azithromycin and Zosyn. - Continue scheduled DuoNebs every 4 hours, added DuoNebs as needed - Continue methylprednisolone 40 mg IV daily for 3 more days - Sputum culture negative Follow-up: - Follow blood culture #Pleural Effusion, likely transudative Differential diagnosis: Transudative, parapneumonic exudative effusion Diagnostic workup: - Bedside ultrasound 05/03 demonstrated left-sided pleural effusion, likely transudative, low suspicion of loculated effusion, no fibrin deposits visualized. - Repeat bedside ultrasound 05/04 shows improved left-sided pleural effusion, likely transudative, low suspicion of parapneumonic effusion. Order ultrasound no fibrin deposits noted, however atelectasis versus consolidation of the lung noted with air bronchogram, has significant amount of mucus. Treatment: - Patient currently refuses any intervention or thoracentesis reports he does not want to be poked by needles - We will continue IV diuresis with furosemide, patient will need close monitoring for possible evolution of effusion Follow-up: - Consider repeating chest x-ray if patient has increased shortness of breath and will consider thoracentesis/chest tube insertion if needed GI No active problems GI prophylaxis: P.o. Protonix, last dose in a.m. Renal No active problems Compensated metabolic alkalosis noted as patient has baseline hypercapnia secondary to COPD Infectious Disease #Aspiration pneumonia - See respiratory. - Possibly secondary to seizure episode Plan: - Continue azithromycin for 5 days and Zosyn de-escalate Zosyn after cultures are resulted. - Sputum culture negative, blood culture pending Endocrine No active problems Heme #Normocytic anemia. #Thrombocytopenia. Differential diagnosis: Iron deficiency anemia, nutritional anemia, anemia of chronic disease Diagnostic workup: -MCV, MCH, MCHC within normal limits -Thrombocytopenic at baseline, within his physiological range Treatment: -Follow CBC in a.m. -Consider anemia workup outpatient MSK No active problems, referral to physical therapy Skin No active problems Urogenital No active problems, Yoder discontinued DVT prophylaxis: Lovenox GI prophylaxis: Protonix 40 daily Diet: Cardiac diet Lines: Peripheral IV Code status: Full code Disposition: Downgraded to telemetry Case discussed with Attending Dr. Issa. Matteo Patel Internal medicine resident PGY2 Disclaimer: This note was dictated by speech recognition. Minor errors in thread tool grinder set up operator may be present due to voice recognition software.
[2025-05-04] MEDS: NICOTINE PATCH 14 MG/24 HR PATCH.TD24 TOP (10:49)
[2025-05-04] MEDS: ENOXAPARIN SOD INJ 40 MG/0.4 ML SYRINGE SC (10:49)
[2025-05-04] MEDS: PANTOPRAZOLE 40 MG TABLET PO (10:49)
[2025-05-04] MEDS: AZITHROMYCIN INJ 500 MG in SODIUM CHLORIDE 0.9% 250 ML 250 ML 250 MG IV (10:50)
--- NOTE | 2025-05-04 13:01 | PD.RESPRO ---
Documentation for date of: 05/04/25 Subjective Subjective Interval history: Patient seen at bedside, no new concerns. Expressed desire to go home. Exam Vital Signs Temp Pulse Resp BP Pulse Ox O2 Del Method O2 Flow Rate 99.0 F 85 18 150/57 H 92 L Nasal Cannula 2 05/04/25 08:00 05/04/25 12:01 05/04/25 10:15 05/04/25 12:01 05/04/25 12:01 05/04/25 08:00 05/04/25 10:15 FiO2 30 05/03/25 12:56 Narrative Exam General: No acute distress, well nourished HENT: Normocephalic, atraumatic, hearing intact to conversation at normal volume, moist oral mucosa Neck: Supple, non-tender, no JVD, no lymphadenopathy Lungs: Non-labored respirations, symmetric chest rise, on O2 mask Heart: Peripheral pulses intact bilaterally Abdomen: Soft, non-tender, non-distended Musculoskeletal: Normal range of motion and strength Skin: Skin is warm, dry. Bilateral venous stasis dermatitis on LE up to knee. Psychiatric: Cooperative, appropriate mood and affect Neurologic: Mental status: Orientation: Oriented to person, place, and situation Communication: Patient is cooperative and can follow simple instructions Language: Speech fluent, normal rate and volume, comprehension intact Cranial nerves: CN II: Visual hein intact CN III: Pupils equal, round, and reactive to light CN III, IV, : No gaze deviation, no nystagmus Horizontal pursuit: intact Vertical pursuit: intact Ptosis: none CN VII: Face symmetric, no facial droop appreciated CN VIII: Able to hear and respond to conversation at normal volume Motor: Normal bulk and tone No atrophy No abnormal movements or fasciculations Objective Labs 05/04/25 04:25 05/04/25 04:25 Labs: Laboratory Results - last 24 hr 05/04/25 04:25 WBC 8.7 RBC 3.61 L Hgb 11.0 L Hct 33.5 L MCV 93 MCH 30.5 MCHC 32.8 RDW Std Deviation 49.2 H Plt Count 100 L Neut % (Auto) 87 H Lymph % (Auto) 6 L [place] % (Auto) 6 Eos % (Auto) 0 Baso % (Auto) 0 Neut # (Auto) 7.6 Lymph # (Auto) 0.5 L [place] # (Auto) 0.5 Eos # (Auto) 0.0 Baso # (Auto) 0.0 Immature Gran # (Auto) 0.07 H Absolute Nucleated RBC 0.00 Immature Gran % 1 H Nucleated RBC % 0 Sodium 144 Potassium 3.6 Chloride 94 L Carbon Dioxide > 40.0 H Anion Gap 10 BUN 13 Creatinine 0.9 Estim Creat Clear Calc 100.6 eGFR > 60 BUN/Creatinine Ratio 14 Glucose 120 H Calculated Osmolality 287 Calcium 8.4 Corrected Calcium 8.7 Phosphorus 3.0 Magnesium 2.0 Total Bilirubin 0.7 AST 12 ALT 11 Alkaline Phosphatase 39 L Total Protein 5.7 Albumin 3.6 Globulin 2.1 L Albumin/Globulin Ratio 1.7 ABG Interpretation ABG results: 04/30/25 04/30/25 04/30/25 10:27 13:47 16:29 ABG pH 7.21 L 7.20 L ABG pCO2 134 H* 134 H* ABG pO2 79 L 67 L ABG HCO3 53 H 52 H ABG O2 Saturation 95 93 ABG Base Excess 19 H 18 H VBG pH 7.31 L VBG pCO2 102 H VBG pO2 52 VBG Base Excess 20 H 04/30/25 05/01/25 05/02/25 20:19 05:52 00:09 ABG pH 7.27 L 7.36 ABG pCO2 124 H* D 98 H* D ABG pO2 60 L 63 L ABG HCO3 56 H 56 H ABG O2 Saturation 91 92 ABG Base Excess 23 H 25 H VBG pH 7.57 VBG pCO2 51 D VBG pO2 90 H D VBG Base Excess 21 H 05/02/25 05/02/25 05/02/25 04:50 05:57 16:10 ABG pH 7.51 H D 7.31 L D 7.52 H D ABG pCO2 64 H D 89 H* D 61 H D ABG pO2 55 L* 181 H D 62 L D ABG HCO3 51 H 44 H 49 H ABG O2 Saturation 91 98 93 ABG Base Excess 24 H 14 H 23 H VBG pH VBG pCO2 VBG pO2 VBG Base Excess 05/03/25 03:49 ABG pH 7.52 H ABG pCO2 56 H ABG pO2 59 L* ABG HCO3 46 H ABG O2 Saturation 92 ABG Base Excess 20 H VBG pH VBG pCO2 VBG pO2 VBG Base Excess Quality Measures Quality Measures VTE prophylaxis Advance care planning discussed with:: patient Assessment & Plan Assessment Current Active Medications: Generic Name Dose Route Start Last Admin Trade Name Freq PRN Reason Stop Dose Admin Acetaminophen 650 mg 04/30/25 13:42 Acetaminophen 325 Mg Tablet PO 05/30/25 13:41 Q6H PRN Fever >100.4 or pain Albuterol/Ipratropium 3 ml 05/01/25 06:00 05/04/25 10:15 Albuterol/Ipratropium (Duoneb) Rt Marita 3 Ml Nebu INH 05/31/25 05:59 3 ml Q4H FREDIS Administration Albuterol/Ipratropium 3 ml 05/02/25 07:45 Albuterol/Ipratropium (Duoneb) Rt Marita 3 Ml Nebu INH 06/01/25 07:44 Q2HR PRN SHORTNESS OF BREATH OR WHEEZE Aspirin 81 mg 05/03/25 21:00 05/03/25 21:08 Aspirin Ec 81 Mg Tabec PO 06/02/25 20:59 81 mg HS FREDIS Administration Atorvastatin Calcium 40 mg 05/03/25 21:00 05/03/25 21:08 Atorvastatin Calcium 20 Mg Tablet PO 06/02/25 20:59 40 mg HS FREDIS Administration Docusate Sodium 100 mg 04/30/25 13:42 Docusate Sod 100 Mg Capsule PO 05/30/25 13:41 QDAY PRN CONSTIPATION Protocol Enoxaparin Sodium 40 mg 05/01/25 09:00 05/04/25 10:49 Enoxaparin Sod Inj 40 Mg/0.4 Ml Syringe SC 05/15/25 08:59 40 mg QDAY FREDIS Administration Furosemide 40 mg 04/30/25 16:15 05/02/25 08:13 Furosemide Inj 10 Mg/Ml 4ml Vial IVP 05/30/25 16:14 40 mg QDAY FREDIS Administration Azithromycin 500 mg/ Sodium 250 mls @ 250 mls/hr 05/01/25 09:00 05/04/25 10:50 Chloride IV 05/08/25 08:59 250 mls/hr QDAY FREDIS Administration Piperacillin Sod/Tazobactam 100 mls @ 25 mls/hr 05/02/25 22:00 05/04/25 06:14 Sod 4.5 gm/ Sodium Chloride IV 05/09/25 21:59 25 mls/hr Q8HR FREDIS Administration Levetiracetam 500 mg 05/02/25 09:30 05/03/25 08:16 Levetiracetam Liqd 500 Mg/5 Ml Udc PO 06/01/25 09:29 500 mg BID FREDIS Administration Methylprednisolone Sodium Succinate 40 mg 05/05/25 09:00 Methylprednisolone Sod Succ 40 Mg Vial IVP 05/08/25 08:59 QDAY FREDIS Midodrine 10 mg 05/03/25 10:33 05/04/25 06:13 Midodrine 5 Mg Tablet PO 06/01/25 13:59 Not Given TID FREDIS Nicotine 14 mg 05/01/25 09:00 05/04/25 10:49 Nicotine Patch 14 Mg/24 Hr Patch.Td24 TOP 05/31/25 08:59 14 mg QDAY FREDIS Administration Ondansetron HCl 4 mg 04/30/25 13:42 Ondansetron Inj 2 Mg/Ml Inj 2 Ml IVP 05/30/25 13:41 Q6H PRN NAUSEA OR VOMITING Protocol Pantoprazole Sodium 40 mg 05/04/25 09:00 05/04/25 10:49 Pantoprazole 40 Mg Tablet PO 05/05/25 09:01 40 mg QDAY FREDIS Administration Sennosides 1 tab 05/03/25 09:00 05/04/25 10:48 Senna Tablet PO 06/02/25 08:59 1 tab QDAY FREDIS Administration Protocol Plan #Seizure episode? Seizure-like activity observed by nurse prior to code blue. May have been 2/2 hypoxia Per chart review, patient has a history fo seizure disorder but does not take anti-seizure medications at home. When asked, patient reports that he has never had a seizure before. Blood glucose: 139 --> 159 Lactic acid high 5.29 March 2025: TSH low, T4 WNL EKG 04/30 NSR Patient has not had any more recurrence of similar episodes after resuscitated. Plan: - Routine spot EEG - ok to do outpatient if needed, patient expressed interest in completing EEG inpatient - MRI w/ contrast to look for structural causes of seizure - ok to do outpatient, patient expressed interest in completing MRI - Continue Keppra 500 mg BID - Patient cannot drive until seizure workup completed - OK to discharge from neurological perspective #Status post cardiac arrest #Undifferentiated shock Patient had cardiac arrest with PEA, achieved ROSC after 2 rounds of ACLS, 2 doses of Epi was given and 1 dose of bicarb. Initially was hypertensive after code blue, then BP dropped to MAP of 52, started on NEpi drip. Troponin WNL Plan: - Management per primary team #Hx of HFpEF with EF 55-60% #Hx of hypertension Echo from 03/27/2025 showed Normal LV size and function with an estimated EF of 55 to 60%. Grade II Diastolic dysfunction. Plan: - Management per primary team - Lasix IV #Hx of CAD s/p CABG #Hx of hyperlipidemia Troponin WNL No home med statin Plan: - Management per primary team #Hx of Afib Currently in sinus rhythm No documented home anticoagulation Plan: - Management per primary team - Enoxaparin 40 mg daily #Possible aspiration PNA #Acute hypoxic respiratory failure - resolved #Severe COPD on 4L home O2 #Active tobacco smoking status #Mechanical ventilation, now extubated Patient was intubated multiple times in past due to severe COPD, he is chronic CO2 retainer and is on 4L home O2. He continues to smoke tobacco despite health problems. Excessive mucus in his airways. He was intubated and started on MV volume control: TV 460, FiO2 100%, PEEP 5, RR 20. Successfully extubated 05/03 CXR 04/30: Significant pneumonia left base Mild to moderate left pleural fluid Blood cx NGTD (preliminary) Sputum cx: Mixed oral april Plan: - Management per primary - azithromycin and cefepime IV, DuoNebs, IV steroids #Normocytic anemia #Thrombocytopenia On admission to ICU hgb 12.2, PLT 98. Plan: - Management per primary - continue to monitor Plan discussed with Dr. Candy Moya, PGY1 Attending Provider Attestation/Addendum I personally examined the patient at bedside and agree with resident's findings, assessment and plan of care. Will redo MRI and EEG as an outpatient if he cooperates. Patient has not had any more seizures after being extubated. Will discontinue the Keppra. Patient is stable from neurology standpoint for discharge
--- NOTE | 2025-05-04 16:11 | ESPR_ITS ---
<Statement entered by Gustavo Monique MD - 05/04/25 18:14> Patient was seen and examined at the bedside. Patient is downgraded from ICU to floors for further management. He reports to have improvement in his breathing and denies any shortness of breath. He has some mild discomfort on his chest. Patient will be continued on DuoNeb, steroid therapy. Patient had an episode of seizure before code blue and pending on neurology recommendations for possible MRI brain and EEG which is under decision to be performed as outpatient. Seizure precautions as needed. will cont zosyn and follow with final cx results. I discussed and supervised with the international trade manager physician who took care of this patient. I personally saw and examined the patient. I agree with most of the assessment and plan. Disclaimer: Despite multiple revisions, due to the dictation software being used, the document bellow may not be free of grammatical errors including phonetic/typographic errors. However, this does not deter from our commitment to providing health care in the patient's best interest in mind. Plan of care discussed with attending Physician Dr. Gonzales Monique MD PGY-3 Documentation for date of: 05/04/25 Subjective Subjective Interval history: Patient seen at bedside following downgrade from ICU. He reports breathing better now and denies any shortness of breath at rest while on nasal cannula. When asked about BiPAP, he stated, ?I think nasal cannula is enough.? He denies chest pain, palpitations, fever, chills, or new cough, and says his sputum is less than before. He denies headache, confusion, weakness, or any seizure-like symptoms. He denies nausea, vomiting, swelling, or leg pain. The only pain he reports is mild discomfort at the site where he was shocked during CODE BLUE, otherwise feels comfortable. Tolerating diet and following commands appropriately. Exam Vital Signs Temp Pulse Resp BP Pulse Ox O2 Del Method O2 Flow Rate 99.0 F 71 20 150/57 H 96 Nasal Cannula 4 05/04/25 08:00 05/04/25 15:14 05/04/25 15:14 05/04/25 12:01 05/04/25 15:14 05/04/25 08:00 05/04/25 15:14 FiO2 30 05/03/25 12:56 Narrative Exam General: Awake, alert, in no acute distress. Neuro: A&O x3, following commands, no focal deficit. HEENT: Normocephalic, atraumatic, oral mucosa moist. Heart: RRR, normal S1/S2, no murmurs. Lungs: Mild crackles at left base, otherwise clear to auscultation. Abdomen: Soft, nondistended, NT, no rebound. Extremities: No edema, no tenderness, pulses 2+ radial, 1+ dorsalis pedis. Skin: Warm, dry, venous stasis changes lower legs, no new lesions. Objective Labs 05/04/25 04:25 05/04/25 04:25 Labs: Laboratory Results - last 24 hr 05/04/25 04:25 WBC 8.7 RBC 3.61 L Hgb 11.0 L Hct 33.5 L MCV 93 MCH 30.5 MCHC 32.8 RDW Std Deviation 49.2 H Plt Count 100 L Neut % (Auto) 87 H Lymph % (Auto) 6 L [place] % (Auto) 6 Eos % (Auto) 0 Baso % (Auto) 0 Neut # (Auto) 7.6 Lymph # (Auto) 0.5 L [place] # (Auto) 0.5 Eos # (Auto) 0.0 Baso # (Auto) 0.0 Immature Gran # (Auto) 0.07 H Absolute Nucleated RBC 0.00 Immature Gran % 1 H Nucleated RBC % 0 Sodium 144 Potassium 3.6 Chloride 94 L Carbon Dioxide > 40.0 H Anion Gap 10 BUN 13 Creatinine 0.9 Estim Creat Clear Calc 100.6 eGFR > 60 BUN/Creatinine Ratio 14 Glucose 120 H Calculated Osmolality 287 Calcium 8.4 Corrected Calcium 8.7 Phosphorus 3.0 Magnesium 2.0 Total Bilirubin 0.7 AST 12 ALT 11 Alkaline Phosphatase 39 L Total Protein 5.7 Albumin 3.6 Globulin 2.1 L Albumin/Globulin Ratio 1.7 ABG Interpretation ABG results: 04/30/25 04/30/25 04/30/25 10:27 13:47 16:29 ABG pH 7.21 L 7.20 L ABG pCO2 134 H* 134 H* ABG pO2 79 L 67 L ABG HCO3 53 H 52 H ABG O2 Saturation 95 93 ABG Base Excess 19 H 18 H VBG pH 7.31 L VBG pCO2 102 H VBG pO2 52 VBG Base Excess 20 H 04/30/25 05/01/2505/02/25 20:19 05:52 00:09 ABG pH 7.27 L 7.36 ABG pCO2 124 H* D 98 H* D ABG pO2 60 L 63 L ABG HCO3 56 H 56 H ABG O2 Saturation 91 92 ABG Base Excess 23 H 25 H VBG pH 7.57 VBG pCO2 51 D VBG pO2 90 H D VBG Base Excess 21 H 05/02/25 05/02/25 05/02/25 04:50 05:57 16:10 ABG pH 7.51 H D 7.31 L D 7.52 H D ABG pCO2 64 H D 89 H* D 61 H D ABG pO2 55 L* 181 H D 62 L D ABG HCO3 51 H 44 H 49 H ABG O2 Saturation 91 98 93 ABG Base Excess 24 H 14 H 23 H VBG pH VBG pCO2 VBG pO2 VBG Base Excess 05/03/25 03:49 ABG pH 7.52 H ABG pCO2 56 H ABG pO2 59 L* ABG HCO3 46 H ABG O2 Saturation 92 ABG Base Excess 20 H VBG pH VBG pCO2 VBG pO2 VBG Base Excess Quality Measures Quality Measures VTE prophylaxis Advance care planning discussed with:: patient Assessment & Plan Assessment Current Active Medications: Generic Name Dose Route Start Last Admin Trade Name Freq PRN Reason Stop Dose Admin Acetaminophen 650 mg 04/30/25 13:42 Acetaminophen 325 Mg Tablet PO 05/30/25 13:41 Q6H PRN Fever >100.4 or pain Albuterol/Ipratropium 3 ml 05/01/25 06:00 05/04/25 15:14 Albuterol/Ipratropium (Duoneb) Rt Marita 3 Ml Nebu INH 05/31/25 05:59 3 ml Q4H FREDIS Administration Albuterol/Ipratropium 3 ml 05/02/25 07:45 Albuterol/Ipratropium (Duoneb) Rt Marita 3 Ml Nebu INH 06/01/25 07:44 Q2HR PRN SHORTNESS OF BREATH OR WHEEZE Aspirin 81 mg 05/03/25 21:00 05/03/25 21:08 Aspirin Ec 81 Mg Tabec PO 06/02/25 20:59 81 mg HS FREDIS Administration Atorvastatin Calcium 40 mg 05/03/25 21:00 05/03/25 21:08 Atorvastatin Calcium 20 Mg Tablet PO 06/02/25 20:59 40 mg HS FREDIS Administration Docusate Sodium 100 mg 04/30/25 13:42 Docusate Sod 100 Mg Capsule PO 05/30/25 13:41 QDAY PRN CONSTIPATION Protocol Enoxaparin Sodium 40 mg 05/01/25 09:00 05/04/25 10:49 Enoxaparin Sod Inj 40 Mg/0.4 Ml Syringe SC 05/15/25 08:59 40 mg QDAY FREDIS Administration Furosemide 40 mg 04/30/25 16:15 05/02/25 08:13 Furosemide Inj 10 Mg/Ml 4ml Vial IVP 05/30/25 16:14 40 mg QDAY FREDIS Administration Azithromycin 500 mg/ Sodium 250 mls @ 250 mls/hr 05/01/25 09:00 05/04/25 10:50 Chloride IV 05/08/25 08:59 250 mls/hr QDAY FREDIS Administration Piperacillin Sod/Tazobactam 100 mls @ 25 mls/hr 05/02/25 22:00 05/04/25 15:15 Sod 4.5 gm/ Sodium Chloride IV 05/09/25 21:59 Not Given Q8HR FREDIS Levetiracetam 500 mg 05/02/25 09:30 05/03/25 08:16 Levetiracetam Liqd 500 Mg/5 Ml Udc PO 06/01/25 09:29 500 mg BID FREDIS Administration Methylprednisolone Sodium Succinate 40 mg 05/05/25 09:00 Methylprednisolone Sod Succ 40 Mg Vial IVP 05/08/25 08:59 QDAY FREDIS Midodrine 10 mg 05/03/25 10:33 05/04/25 14:30 Midodrine 5 Mg Tablet PO 06/01/25 13:59 Not Given TID FREDIS Nicotine 14 mg 05/01/25 09:00 05/04/25 10:49 Nicotine Patch 14 Mg/24 Hr Patch.Td24 TOP 05/31/25 08:59 14 mg QDAY FREDIS Administration Ondansetron HCl 4 mg 04/30/25 13:42 Ondansetron Inj 2 Mg/Ml Inj 2 Ml IVP 05/30/25 13:41 Q6H PRN NAUSEA OR VOMITING Protocol Pantoprazole Sodium 40 mg 05/04/25 09:00 05/04/25 10:49 Pantoprazole 40 Mg Tablet PO 05/05/25 09:01 40 mg QDAY FREDIS Administration Sennosides 1 tab 05/03/25 09:00 05/04/25 10:48 Senna Tablet PO 06/02/25 08:59 1 tab QDAY FREDIS Administration Protocol Plan 65M with severe COPD on 4L home O2, HFpEF, s/p CABG, Afib by history, CAD, chronic smoker with PEA arrest ?> ROSC, extubated, downgraded to floor, now stable on NC, improving. # Acute Hypercapnic Respiratory Failure / COPD Exacerbation Likely secondary to COPD flare plus aspiration. Extubated, on NC, stable, patient comfortable and prefers NC only - no signs of fatigue or worsening work of breathing. Good cough, sputum improving. Baseline CO2 retainer, permissive hypercapnia tolerate. Plan: * Continue DuoNebs q4h + PRN. * Continue methylprednisolone 40 mg IV daily x3 days. * Wean O2 as tolerated. * Encourage pulmonary toilet, no antitussives. * BIPAP as needed # Aspiration Pneumonia Covered with Zosyn + Azithromycin. No fevers, sputum culture negative, blood cultures pending. Lungs with mild crackles at L base but overall clear. Plan: * Continue Azithromycin x5 days total. * Continue Zosyn -- de-escalate if cultures stay negative. * Prelim blood cultures neg x48 hr /sputum cx mixed april * Aspiration precautions # Post-Cardiac Arrest (PEA) / ROSC PEA arrest with ROSC after ACLS x2, now fully awake, A&O x3, no neuro deficits. Only pain is at defib site. Off pressors, stable BP. Plan: * Telemetry monitoring. * Pain control PRN. #?Possible seizure # History of Seizure Suspected seizure prior to arrest, patient denies known history. Leonardo held per neuro for EEG/MRI plan. No new seizure-like activity. Plan: * Consult Neuro to see if EEG/MRI can be done outpatient. * Monitor for recurrent seizure signs. * Seizure precautions # HFpEF (EF 55?60%),2024 Euvolemic, Lasix resumed for mild pleural effusion. Plan: * Continue diuresis. * Daily weight, I/Os. * Monitor electrolytes. * Fluid restriction upto 1500 ml # Left Pleural Effusion Minimal on repeat US, likely transudative. Patient refuses thoracentesis. Plan: * Continue diuresis. * Repeat CXR if worsening SOB. # CAD s/p CABG, # Hyperlipidemia Plan: * Continue aspirin 81 mg daily. * Continue atorvastatin 40 mg daily. # Afib by history EKG shows sinus. Denies palpitations. Plan: * Continue telemetry. # Normocytic Anemia / Thrombocytopenia Stable. Plan: * Daily CBC. * Outpatient anemia workup if needed. Health Maintenance * Disposition: Stable, downgraded from ICU. Continue floor-level care, monitor for improvement. * DVT Prophylaxis: Lovenox? * GI Prophylaxis: Protonix? * Diet: Tolerating cardiac diet. * PT: Referral placed. * Code Status: Full Code? ----- Plan discussed with attending physician Dr. Rolon and senior resident Dr. Kayden Brown MD PGY-1 Internal Medicine Attending Provider Attestation/Addendum [place], Kristina Rolon, , attest that I was physically present for the malone portions of the service and evaluated the patient with the resident and I reviewed and discussed the case with the resident and agree with the resident's findings and plans of care as documented above Patient seen and evaluated this afternoon. Patient was downgraded from the ICU after he had experienced a seizure, aspirated and went into PEA . Pt was subsequently intubated, ROSC was obtained after two rounds of CPR. Pt was extubated yesterday. He remains on steroids, IV diuretics and empiric antibiotics for atypical, gram negative and anaerobic coverage of pneumonia. Patient was seen in room 278 during which patient was agitated with seizure precautions. Patient stated he could not adjust his bed and was frustrated. He reported some chest pain due to chest compressions. Patient does not want to use BiPap at night. He has a small pleural effusion in left chest, but minimal to tap. Continue with diuresis at this time. Sputum cultures otherwise negative. Pendning neuro recs. Patient stated if he does not see neuro this evening, he will leave against medical advice after breakfast tomorrow. Emphasized to patient that he is not clear for discharge and leaving against medical advice would put him at risk of permanant disability or sudden cardiac . Patient stated he is leaving after breakfast no matter what.
--- NOTE | 2025-05-04 17:06 | PC.NURSE ---
Patient is refusing side rail seizure precautions.
[2025-05-04] MEDS: ATORVASTATIN CALCIUM 20 MG TABLET 40 MG PO (22:32)
[2025-05-04] MEDS: ASPIRIN EC 81 MG TABEC PO (22:32)
[2025-05-05] VITALS (7 sets, daily range): BP systolic 126–181; BP diastolic 61–87; PULSE 70–85; RESP 16–23; TEMP 36.1–36.6; O2SAT 94–99; BMI 33.3
--- NOTE | 2025-05-05 00:20 | PC.NURSE ---
86% O2 sat on 4L/min/nc- Increased to 5L/min/nc O2 inh.
[2025-05-05] MEDS: ALBUTEROL/IPRATROPIUM (Duoneb) RT SOL 3 ML NEBU INH (02:57)
--- NOTE | 2025-05-05 08:21 | PC.NURSE ---
Dr. Ye notified, pt has called for friend to pick him up. He is requesting medications to be called in to pharmacy and paperwork ready in 15 min. Md to come see patient, possible DC
--- NOTE | 2025-05-05 09:43 | PC.NURSE ---
0883, received call from Bhavani, pt had a fall. He was able to put himself back to bed and denies hitting his head, or any pain. Patient is wanting to leave Dr. Kayden LUIS at bedside, risks explained to patient, safety education given. Patient is stating that he does not want to talk with anyone regarding fall, comfort or DC. He is repeating, get me a wheelchair, I'm not answering any questions [facility] star called at [phone]
--- NOTE | 2025-05-05 10:37 | ESDS_ITS ---
<Statement entered by Gustavo Monique MD - 05/05/25 13:41> I discussed and supervised with the research program intern physician who took care of this patient. I personally saw and examined the patient. I agree with most of the assessment and plan. Disclaimer: Despite multiple revisions, due to the dictation software being used, the document bellow may not be free of grammatical errors including phonetic/typographic errors. However, this does not deter from our commitment to providing health care in the patient's best interest in mind. Plan of care discussed with attending Physician Dr. Saeed Monique MD PGY-3 Planned Discharge Date 05/05/25 DS: Providers Provider Date of admission: 04/30/25 13:55 Primary care physician: Physician Ayana Primary/Family Admitting Provider: Kristina Rolon DO Attending Provider on Admission: Yvonne Tipton MD Consults: 04/30/25 14:58 Referral Wound Care Routine Comment: feet need care 05/02/25 06:00 Consult to Neurology / Tele-Neurology Routine Comment: New onset Seizure Consulting Provider: Sylvester Gupta 05/03/25 12:59 Referral Speech Therapy Routine Comment: S/P Extubation 05/04/25 15:22 Referral Physical Therapy Urgent Comment: Physician Instructions: Attending Provider on DC: Yvonne Tipton MD Discharging Provider: Sofy Brown MD DS: Diagnosis Problem List Completed Was Problem List Reviewed/Reconciled?: Yes Hospital Course Hospital Course Hospital course: Mr. Lowe is a 65-year-old male with severe COPD on 4L home O?, HFpEF (EF 55?60%), s/p CABG, CAD, history of Afib, chronic tobacco use, and alcohol use disorder. He presented to [facility] with acute on chronic hypercapnic hypoxic respiratory failure due to COPD exacerbation and suspected aspiration pneumonia. He was initially placed on BiPAP in the ED. On hospital day 1, he had a suspected seizure episode with emesis, followed by a cardiopulmonary arrest (PEA). CODE BLUE was called, ROSC achieved after 2 rounds of ACLS and intubation, and he was admitted to ICU. He was placed on sedation, low-dose pressors initially, treated with IV antibiotics (Zosyn and Azithromycin), steroids, and supportive care. Bedside ultrasound showed left- sided pleural effusion, likely transudative. Over the next days, he was weaned off sedation and pressors, extubated successfully on 05/03, and transitioned to nasal cannula. He had good cough reflex, clearing mucus, and improving sputum. Neuro held Keppra to plan for MRI and EEG workup for suspected seizure. He was stable enough to downgrade to the floor. Today, when seen this morning, patient expressed wanting to leave but agreed to stay a bit longer for PT. Shortly afterward, he had a fall ([facility] called), but he was able to get up on his own, remained alert and oriented, denied pain or head injury. He again insisted on leaving and left AMA despite risks being explained. The patient has decided to leave against medical advice because he wants to return home and refused further care despite being encouraged to stay for physical therapy and continued monitoring. He has normal mental status and demonstrated capacity to make medical decisions. The patient refuses further hospital admission and insisted on immediate discharge. The risks of leaving AMA were explained, including possible worsening respiratory failure, pneumonia progression, complications from recent cardiac arrest, risk of repeat fall or injury, permanent disability, and . The benefits of continued monitoring and treatment were also explained, including the availability of nursing care, physicians, diagnostic testing, and physical therapy. The patient was able to understand and verbalize the risks and benefits of staying vs leaving. He had the opportunity to ask questions and all questions were answered. The patient was treated to the extent he would allow and understands that he may return for care at any time. Follow-up was discussed but he refused formal arrangements, stating he will return to the ED if needed. He was encouraged to return if symptoms worsen. Diagnoses during admission #Acute hypercapnic hypoxic respiratory failure ? partially improved, but not fully resolved #Severe COPD exacerbation ? partially improved #Aspiration pneumonia ? partially treated, antibiotics not completed #Cardiopulmonary arrest (PEA) ? ROSC achieved, resolved #Suspected seizure episode ? workup deferred, MRI/EEG planned outpatient but not done #Left-sided pleural effusion #HFpEF (EF 55?60%) #CAD s/p CABG #History of Afib ? no active Afib during stay, telemetry stable #Normocytic anemia #Thrombocytopenia #Nicotine dependence #Alcohol use disorder Care Plan Goals: You have been given a course of antibiotic levofloxacin 750 mg once a day for 6 more days to complete course of antibiotic for possible aspiration pneumonia and Dosepak for COPD exacerbation Take aspirin 81 mg once daily, atorvastatin 40 mg at night, Lasix 40 mg once daily Continue taking Keppra 500 mg twice daily and follow-up with neurologist as outpatient for MRI brain and EEG as outpatient Take all medication as prescribed Follow-up with your PCP as outpatient within 2 weeks Follow-up with your neurologist as outpatient within 2 weeks In case of emergency, call 911 or come back to the ED ----- Plan discussed with attending physician Dr. Tipton and senior resident Dr. Kayden Brwon MD PGY-1 Internal Medicine Time Spent with Patient Time attestation: Total time spent providing and/or coordinating discharge services: Time spent: Greater than 30 minutes Quality: Stroke Pt Provided Written Stroke Discharge Instructions: No (no stroke s/s) Exam Vital Signs Temp Pulse Resp BP Pulse Ox O2 Del Method O2 Flow Rate 97.9 F 70 16 126/61 95 Nasal Cannula 4 05/05/25 08:00 05/05/25 08:00 05/05/25 08:00 05/05/25 08:00 05/05/25 08:00 05/05/25 08:00 05/05/25 08:00 FiO2 30 05/03/25 12:56 Narrative Exam PE prior to AMA General: Awake, alert, in no acute distress. Neuro: A&O x3, following commands, no focal deficit. HEENT: Normocephalic, atraumatic, oral mucosa moist. Heart: RRR, normal S1/S2, no murmurs. Lungs: Mild crackles at left base, otherwise clear to auscultation. Abdomen: Soft, nondistended, NT, no rebound. Extremities: No edema, no tenderness, pulses 2+ radial, 1+ dorsalis pedis. Skin: Warm, dry, venous stasis changes lower legs, no new lesions. Discharge Plan Plan Patient Disposition: Left Against Medical Advice Care Plan Goals: You have been given a course of antibiotic levofloxacin 750 mg once a day for 6 more days to complete course of antibiotic for possible aspiration pneumonia and Dosepak for COPD exacerbation Take aspirin 81 mg once daily, atorvastatin 40 mg at night, Lasix 40 mg once daily Continue taking Keppra 500 mg twice daily and follow-up with neurologist as outpatient for MRI brain and EEG as outpatient Take all medication as prescribed Follow-up with your PCP as outpatient within 2 weeks Follow-up with your neurologist as outpatient within 2 weeks In case of emergency, call 911 or come back to the ED Prescriptions/Referrals Prescriptions/Med Rec: New aspirin 81 mg Tablet,Delayed Release (Dr/Ec) 81 mg PO HS Qty: 90 0RF atorvastatin 40 mg tablet 40 mg PO HS Qty: 90 0RF levetiracetam [Keppra] 500 mg tablet 500 mg PO BID 28 Days Qty: 56 0RF methylprednisolone [Medrol (Agus)] 4 mg tablets,dose pack 4 mg PO QAM Qty: 21 0RF levofloxacin 750 mg tablet 750 mg PO QDAY 6 Days Qty: 6 0RF Continued nicotine 21 mg/24 hr Patch 24 Hour 21 mg top QDAY PRN (Reason: Nicotine Cravings) Qty: 7 0RF furosemide 40 mg tablet 40 mg PO QDAY 7 Days Qty: 7 0RF Patient Comments: TAKE ONE TABLET BY MOUTH TWICE DAILY A DIURETIC albuterol sulfate 90 mcg/actuation aerosol powdr breath activated 2 inh inhalation Q6H PRN (Reason: shortness of breath or wheezing) Qty: 1 3RF Trelegy Ellipta 200-62.5-25 mcg blister with device 1 inh inhalation Q24H Qty: 60 0RF Discontinued prednisone 10 mg tablet See Taper PO QDAY Qty: 12 0RF Taper: Prednisone Taper 30 mg DAILY for 2 Days and 0 Hour 20 mg DAILY for 2 Days and 0 Hour 10 mg DAILY for 2 Days and 0 Hour Referrals: No Primary/Family,Physician [Primary Care Provider] - Patient/Caregiver Discharge Instructions Print Language: French Quality Discharge Quality Measures VTE prophylaxis MD Attestestation Attestation I attest that I was physically present for the evaluation, physical examination, lab and imaging review of the patient with the residents. I discussed the case with the residents and agree with the findings and plans of care as documented above. Patient was planned for discharge after physical therapy evaluation. Continues to be on nasal cannula, saturating well. Had a fall this morning, but denied any pain or tenderness following the fall, denied hitting his head. At bedside, patient stated that he would like to leave AGAINST MEDICAL ADVICE and refused to wait for physical therapy evaluation. Yvonne Tipton MD
== END 2025-05-05 09:32 | disposition left against medical advice (07) | DRG 208 ==
LOC: SERX 12:38 → SERHOLD 13:58 → S2NX 05-01 01:02 → S2SX 05-02 09:19 → S2NX 05-05 08:12
PROVIDERS: Student in an Organized Health Care Education/Training Program; Admitting Provider Internal Medicine; Emergency Provider Emergency Medicine; Visit Provider Student in an Organized Health Care Education/Training Program
DX: J44.1 Chronic obstructive pulmonary disease with (acute) exacerbation (principal); J18.9 Pneumonia, unspecified organism; I46.8 Cardiac arrest due to other underlying condition; J96.21 Acute and chronic respiratory failure with hypoxia; J96.22 Acute and chronic respiratory failure with hypercapnia; J69.0 Pneumonitis due to inhalation of food and vomit; I50.32 Chronic diastolic (congestive) heart failure; R57.9 Shock, unspecified; J44.0 Chronic obstructive pulmonary disease with (acute) lower respiratory infection; I48.91 Unspecified atrial fibrillation; F17.210 Nicotine dependence, cigarettes, uncomplicated; E78.5 Hyperlipidemia, unspecified; I11.0 Hypertensive heart disease with heart failure; Z95.1 Presence of aortocoronary bypass graft; Z99.81 Dependence on supplemental oxygen; D64.9 Anemia, unspecified; D69.6 Thrombocytopenia, unspecified; F10.10 Alcohol abuse, uncomplicated; G40.909 Epilepsy, unspecified, not intractable, without status epilepticus; I25.10 Atherosclerotic heart disease of native coronary artery without angina pectoris; Z53.29 Procedure and treatment not carried out because of patient's decision for other reasons; Z79.82 Long term (current) use of aspirin; Z79.899 Other long term (current) drug therapy; Z91.199 Patient's noncompliance with other medical treatment and regimen due to unspecified reason
CPT/HCPCS: 36415; 36600; 71045; 80053; 82803; 83036; 83605; 83735; 83880; 84100; 84484; 85025; 85379; 85610; 87040; 87205; 87811; 92610; 93005; 93225; 94002; 94003; 94640; 94660; 96365; 96367; 96375; 99291; A4314; A9270; J0456; J0692; J0696; J1650; J1938; J1956; J2250; J2470; J2543; J2704; J2919; J3010; J3475; J3480; J3490; J7050; J7999

== ENCOUNTER 2025-05-10 15:22 | Inpatient (IN) | payer MEDICARE, SELFPAY ==
[2025-05-10] VITALS (9 sets, daily range): BP systolic 127–149; BP diastolic 62–71; PULSE 65–116; RESP 17–26; TEMP 36.8–37.6; O2SAT 93–99; BMI 29.8
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
--- NOTE | 2025-05-10 15:42 | XR_ITS ---
Examination: AP chest single view Technique one AP portable semiupright chest single view Date and time: May 10, 2025 1617 hours Comparison May 03, 2025 INDICATION: Shortness of breath chest pain today. FINDINGS: Mild prominence of ventricle and Parenchymal disease left base Prominent vascular congestion Demineralization is moderate IMPRESSION: Recommend lateral chest view to confirm pneumonia and pleural fluid left base
[2025-05-10 16:17] LABS: Base Excess 16 (-3-3); HCO3 47 mEq/L (20-26); Inspired O2, VO2 Liters 4 L/min; PCO2 93 mmHg (32.0-48.0); pH, Arterial 7.31 (7.35-7.45)
[2025-05-10] MEDS: ALBUTEROL/IPRATROPIUM (Duoneb) RT SOL 3 ML NEBU INH (16:28)
--- NOTE | 2025-05-10 16:28 | PC.NURSE ---
RT at bedside to give nebulizer tx.
[2025-05-10 16:33] LABS: PO2 21 mmHg (83-108)
[2025-05-10 16:36] LABS: Allen Test Performed/OK; O2 Saturation 39 % (91-98); Puncture Site Left Radial
[2025-05-10 16:45] LABS: Lactate (Lactic Acid) 1.8 mMol/L (0.4-2.0)
[2025-05-10 16:48] LABS: Basophils # (Auto) 0.0 Thou/mm3 (0.0-0.2); Basophils % (Auto) 0 % (0-2.5); Eosinophils # (Auto) 0.1 Thou/mm3 (0.0-0.5); Eosinophils % (Auto) 1 % (0-10); Hematocrit 40.9 % (41.0-53.0); Hemoglobin 12.7 g/dL (13.5-16.0); Immature Granulocytes Auto 0.36 Thou/mm3 (0.00-0.00); Lymphocytes # (Auto) 0.8 Thou/mm3 (1.0-4.8); Lymphocytes % (Auto) 10 % (10-50); Mean Corpuscular HGB Conc 31.1 g/dl (31.0-37.0); Mean Corpuscular Hemoglobin 30.0 pg (25.0-35.0); Mean Corpuscular Volume 97 fL (80-100); Monocytes # (Auto) 0.8 Thou/mm3 (0.0-0.8); Monocytes % (Auto) 10 % (0-12); Neutrophils # (Auto) 5.9 Thou/mm3 (1.8-7.7); Neutrophils % (Auto) 75 % (37-80); Nucleated Red Blood Cell # 0.00 Thou/mm3 (0.00-0.00); Nucleated Red Blood Cell % 0 /100 WBC (0); Platelet Count 138 Thou/mm3 (140-440); RDW Standard Deviation 50.3 fL (35.1-43.9); Red Blood Count 4.23 Miln/mm3 (4.50-5.90); White Blood Count 7.9 Thou/mm3 (3.8-10.6)
[2025-05-10 17:18] LABS: Alanine Aminotransferase 11 U/L (10-49); Albumin, Serum 4.1 gm/dL (3.4-4.8); Albumin/Globulin Ratio 1.7 (1.2-2.2); Alkaline Phosphatase 57 U/L (46-116); Anion Gap 5 (7-16); Aspartate Amino Transferase 15 U/L (0-34); BUN/Creatinine Ratio 12 Ratio (12-20); Bilirubin,Total 0.6 mg/dL (0.3-1.2); Blood Urea Nitrogen 7 mg/dL (9-23); Calcium 9.2 mg/dL (8.3-10.6); Calcium (Corrected) 9.2 mg/dL (8.5-10.1); Carbon Dioxide > 40.0 mMol/L (20.0-31.0); Chloride 96 mMol/L (98-107); Creatinine (Component) 0.6 mg/dL (0.6-1.3); Estimated Creatinine Clearance 150.1 mL/min (>60); Globulin 2.4 gm/dL (2.3-3.5); Glucose 116 mg/dL (74-106); Magnesium 1.5 mg/dL (1.6-2.6); Osmolality,Calculated 280 (275-295); Potassium 4.2 mMol/L (3.4-5.1); Procalcitonin 0.17 ng/ml (0.0-0.49); Sodium 141 mMol/L (136-145); Total Protein 6.5 gm/dL (5.7-8.2); eGFR > 60 See Note
--- NOTE | 2025-05-10 17:58 | PC.CC ---
Patient is a 65 year-old male who presents to the hospital on a 5140 hold-DTS. Hold reads, Pt is displaying blizzard behaviors and responding to outside stimuli. Pt is a site and release. 5150 hold [facility] 5150 hold will be upheld and 5150 packet will be completed and sent out to all adult accepting LPS Facilities.
--- NOTE | 2025-05-10 18:00 | EDNOTE_ITS ---
Emergency Room Addendum <Lola Jones - Last Filed: 05/10/25 22:13> Addendum Narrative: I took over the care from previous shift physician, Dr. Hawthorne, attending Dr. Almeida, at 6 PM on 05/10/25. See previous notes for complete H & P and ED course. I reviewed all diagnostic test results. ABG remarkable for pH 7.33, pCO2 75, HCO3 44. Diagnoses include: Treatment here from me included Ativan, Solumedrol, Azithromycin, and Rocephin. I discussed the case with our hospitalist. About the presentation and exam and diagnostics and treatments here. And need of further care in the hospital. Will accept the patient. Rohit Shabazz MD <Rohit Shabazz MD - Last Filed: 05/11/25 02:41> Addendum Narrative: I took over the care from previous shift physician, Dr. Hawthorne (attending Dr. Almeida) at 6 PM on 05/10/25. See previous notes for complete H & P and ED course. I reviewed all diagnostic test results. Diagnoses include: Acute respiratory failure with hypoxia and hypercapnia, pneu monia, and COPD exacerbation. Treatment here from me included BiPAP, Ativan, Solumedrol, Azithromycin, and Rocephin. I discussed the case with our hospitalist. About the presentation and exam and diagnostics and treatments here. And need of further care in the hospital. Will accept the patient. Rohit Shabazz MD
[2025-05-10] MEDS: Magnesium Sulfate 2 GM Ivpb 2 GM/50 ML BAG IV ×2 (18:50→21:53)
[2025-05-10 19:00] LABS: Base Excess 14 (-3-3); HCO3 44 mEq/L (20-26); Inspired O2, VO2 Liters 5 L/min; O2 Saturation 97 % (91-98); PO2 104 mmHg (83-108); pH, Arterial 7.33 (7.35-7.45)
--- NOTE | 2025-05-10 19:04 | PC.NURSE ---
Unable to get 2nd ivl x 4 attempts for multiple medications. patient stating no more informed patient will ask another nurse to attempt ivl later.
[2025-05-10 19:05] LABS: Troponin I < 0.020 ng/mL (0.0-0.045)
[2025-05-10 19:07] LABS: Allen Test Performed/OK; PCO2 75 mmHg (32.0-48.0); Puncture Site Right Radial
--- NOTE | 2025-05-10 19:15 | PC.NURSE ---
Patient refused Covid and flu swabs.
[2025-05-10] MEDS: AZITHROMYCIN 250 MG TABLET 500 MG PO (19:21)
[2025-05-10] MEDS: MethylPREDNISolone SOD SUCC 62.5 MG/ML 2ML VIAL 125 MG IVP (19:22)
[2025-05-10] MEDS: cefTRIAXone/D5w 1gm IV premix 1 GM/50 ML BAG IV (19:22)
[2025-05-10 19:38] LABS: B-Type Natriuretic Peptide 104 pg/mL (0-100)
[2025-05-10 19:42] LABS: D-Dimer 831 ng/mL (<600)
--- NOTE | 2025-05-10 20:28 | PD.RESHP ---
Documentation for date of: 05/10/25 [facility] History of Present Illness Chief complaint: Shortness of breath History of present illness: 65-year-old male with past medical history of COPD on 4 L home oxygen, HFpEF (EF 55 to 60%) coronary artery disease status post CABG, hypertension, atrial fibrillation, hyperlipidemia, chronic tobacco use, alcohol use disorder presenting to the ED with shortness of breath. Patient has multiple admissions to the hospital or for similar presentations found to be in COPD exacerbation and has been intubated before for the same presentation. Patient's history obtained largely from ED provider as the patient is currently on BiPAP and unable to speak in full sentences. Apparently patient ran out of oxygen at home at which point he started feeling short of breath and decided to come to the emergency room. Past medical history: As stated above Surgical history: CABG Allergies: NKDA Medications: Pending med rec Family history: Noncontributory Social history: Patient has greater than 1 pack a day smoking history, greater than [id number], alcohol use disorder but denies illicit drug use. ROS: Unable to assess as patient is currently in respiratory distress on BiPAP In the ED, patient presented hypertensive 149/71, tachycardic with a heart rate of 99, tachypneic with respiratory rate of 26, mildly febrile with a temperature of 99.6 ?F and saturating 94 initially on nasal cannula but quickly requiring BiPAP. Pertinent lab findings included WBC 7.9, hemoglobin 12.7 with MCV of 97, ABG showed pH of 7.33, PCO2 of 75, PO2 of 104, bicarb of 44, creatinine 0.6 with EGFR greater than 60, lactic acid 1.8, magnesium 1.5, troponin less than 0.020, BNP of 104 and [place] 0.17. Chest x-ray shows mild prominence of the ventricle and lateral chest x-ray was ordered to confirm pneumonia and pleural fluid in the left base. Patient will be admitted for COPD exacerbation and superimposed pneumonia with pleural effusion and will be treated with IV antibiotics, breathing treatments and IV steroids with possible thoracentesis vs. IV diuretics. Exam Vital Signs Temp Pulse Resp BP Pulse Ox O2 Del Method O2 Flow Rate 99.6 F 81 20 149/71 H 98 Nasal Cannula 5 05/10/25 15:43 05/10/25 18:26 05/10/25 18:26 05/10/25 15:43 05/10/25 18:26 05/10/25 15:43 05/10/25 18:26 FiO2 100 05/10/25 15:45 Narrative Exam Physical Exam: GENERAL: Awake, answers questions in 1-2 words, on BiPAP, obese, looks older than stated age HEENT: NC/AT. Moist mucosa. PERRLA/EOMI. CARDIO: Heart RRR, distant heart sounds no obvious murmurs, no JVD. PULM: No coughing but visibly short of breath on BiPAP. Reduced lung sounds bilaterally GI: Abdomen soft, distended, but nontender with no guarding or rigidity noted. Borborygmi apparent SKIN/MSK/EXT: No wounds/discoloration/rashes/edema/amputations. +Pedal pulses present B/L. NEURO: Oriented x3, Moves extremities x4., no focal neurologic deficits noted Results: Labs 05/10/25 16:41 05/10/25 16:41 Labs: Short CBC 05/10/25 Range/Units 16:41 WBC 7.9 (3.8-10.6) Thou/mm3 Hgb 12.7 L (13.5-16.0) g/dL Hct 40.9 L (41.0-53.0) % Plt Count 138 L D (140-440) Thou/mm3 BMP 05/10/25 16:41 Sodium 141 Potassium 4.2 Chloride 96 L Carbon Dioxide > 40.0 H BUN 7 L Creatinine 0.6 Glucose 116 H Calcium 9.2 Cardiac Enzymes 05/10/25 Range/Units 16:41 Troponin I < 0.020 (0.0-0.045) ng/mL Liver Function 05/10/25 Range/Units 16:41 Total Bilirubin 0.6 (0.3-1.2) mg/dL AST 15 (0-34) U/L ALT 11 (10-49) U/L Alkaline Phosphatase 57 (46-116) U/L Albumin 4.1 (3.4-4.8) gm/dL ABG Interpretation ABG results: 05/10/25 05/10/25 16:14 18:56 ABG pH 7.31 L 7.33 L ABG pCO2 93 H* 75 H* D ABG pO2 21 L* 104 D ABG HCO3 47 H 44 H ABG O2 Saturation 39 L 97 ABG Base Excess 16 H 14 H Quality Measures Quality Measures none Advance care planning discussed with:: patient Medications Home Medications and Allergies Allergies Allergy/AdvReac Type Severity Reaction Status Date / Time No Known Allergies Allergy Verified 05/10/25 15:46 Visit Medications Acetaminophen (Acetaminophen 325 Mg Tablet) 650 mg PO Q6H PRN PRN Reason: PAIN SCALE 1-3 (mild Stop: 06/09/25 20:21 Heparin Sodium (Porcine) (Heparin Sod Inj 5000 Unit/Ml Vial) 5,000 unit SC Q12HR [facility] Stop: 05/24/25 20:59 Ceftriaxone Sodium/Dextrose (Rocephin/D5w 1gm Iv Premix) 1 gm in 50 mls @ 100 mls/hr IV QDAY [facility] Stop: 05/18/25 08:59 Azithromycin 500 mg/ Sodium (Chloride) 250 mls @ 250 mls/hr IV QDAY [facility] Stop: 05/13/25 08:59 Levalbuterol HCl (Levalbuterol Rt 1.25 Mg/0.5 Ml Nebu) 1.25 mg INH Q8HRRT [facility] Stop: 06/09/25 22:59 Methylprednisolone Sodium Succinate (Methylprednisolone Sod Succ 40 Mg Vial) 40 mg IVP BID [facility] Stop: 05/18/25 08:59 Ondansetron HCl (Ondansetron Inj 2 Mg/Ml Inj 2 Ml) 4 mg IVP Q6H PRN; Protocol PRN Reason: NAUSEA OR VOMITING Stop: 06/09/25 20:21 Sennosides (Senna Tablet) 1 tab PO QDAY [facility]; Protocol Stop: 06/10/25 08:59 Sodium Chloride (Sodium Chloride Rt Marita 0.9% 3 Ml Nebu) 3 ml INH PRN PRN PRN Reason: SOLN Stop: 06/09/25 18:47 Sodium Chloride (Sodium Chloride Rt Marita 0.9% 3 Ml Nebu) 3 ml INH PRN PRN PRN Reason: SOLN Stop: 06/09/25 20:24 Sodium Chloride (Sodium Chloride Rt 10% 15 Ml Nebu) 5 ml INH X1 ONE Stop: 05/10/25 20:26 Discontinued Medications Albuterol/Ipratropium (Albuterol/Ipratropium (Duoneb) Rt Marita 3 Ml Nebu) 3 ml INH X1 ONE Stop: 05/10/25 15:51 Last Admin: 05/10/25 16:28 Dose: 3 ml Azithromycin (Azithromycin 250 Mg Tablet) 500 mg PO X1 ONE Stop: 05/10/25 18:49 Last Admin: 05/10/25 19:21 Dose: 500 mg Magnesium Sulfate (Magnesium Sulfate Ivpb) 2 gm in 50 mls @ 25 mls/hr IV X1 ONE Stop: 05/10/25 19:24 Last Admin: 05/10/25 18:50 Dose: 25 mls/hr Ceftriaxone Sodium/Dextrose (Rocephin/D5w 1gm Iv Premix) 1 gm in 50 mls @ 100 mls/hr IV X1 ONE Stop: 05/10/25 19:17 Last Admin: 05/10/25 19:22 Dose: 100 mls/hr Levalbuterol HCl (Levalbuterol Rt 1.25 Mg/0.5 Ml Nebu) 5 mg INH X1 ONE Stop: 05/10/25 18:49 Lorazepam (Lorazepam 2 Mg/Ml Vial) 1 mg IVP X1 ONE Stop: 05/10/25 19:16 Methylprednisolone Sodium Succinate (Methylprednisolone Sod Succ 62.5 Mg/Ml 2ml Vial) 125 mg IVP X1 ONE Stop: 05/10/25 18:49 Last Admin: 05/10/25 19:22 Dose: 125 mg Assessment & Plan Plan 65-year-old male with past medical history of COPD on 4 L home oxygen, HFpEF (EF 55 to 60%) coronary artery disease status post CABG, hypertension, atrial fibrillation, hyperlipidemia, chronic tobacco use, alcohol use disorder presenting to the ED with shortness of breath will be admitted for COPD exacerbation and superimposed pneumonia with pleural effusion and will be treated with IV antibiotics, breathing treatments and IV steroids with possible thoracentesis vs. IV diuretics. #Hypercapnic Respiratory Failure 2/2 to #Pneumonia / COPD Exacerbation #Respiratory Acidosis with chronic metabolic compensation Acute on chronic CO2 retention likely due to COPD exacerbation with poor BiPAP compliance On BiPAP, ensure mask fits well, RT to monitor. ABG shows pH of 7.33, pCo2 of 75, pO2 104 and Bicarb of 44 CXR with likely significant L base pneumonia, mild-moderate left pleural effusion. Plan: Follow-up on lateral CXR Follow-up on RSV and sputum cultures Continue BIPAP If worsening mental status or unable to protect airway, escalate to ICU for possible intubation. Treat with Azithromycin + Ceftriaxone Continue systemic steroids and Advair inhaler Nebulizers as needed if tolerated and scheduled Monitor for worsening effusion #Volume Overload, HFpEF History of HFpEF LE edema worse than previous admission, echo on 03/27/2025 revealed Normal LV size and function with an estimated EF of 55 to 60%. Grade II Diastolic dysfunction. Plan: Diuresis with Lasix 40 BIDD started. Monitor daily weights, I/Os, electrolytes. Assess for signs of worsening CHF. #Anemia of Chronic Disease Chronic medical condition Plan: Monitor with morning labs Transfuse if <7 #History of seizures On Keppra 500mg po bid Plan: Continue home medications #Tobacco Use Disorder Nicotine patch started. Reinforce cessation counseling when patient more alert. Health Maintenance: Lines: PIV Diet: Cardiac Bowel: Senna GI prophylaxis: Not needed DVT prophylaxis: Heparin subcu Dispo: Treatment for COPD exacerbation, pneumonia and possible pleural effusion with diuretics versus thoracentesis? Code: Full Patient seen and assessed with attending Dr. Saida Narayan, DO PGY-2 Internal Medicine - [facility] Attending Provider Attestation/Addendum I reviewed labs, imaging, EKG, home medications and prior available records. Face to face evaluation was performed by me. I have personally examined the patient and discussed assessment and plan with the IM team. I reviewed the resident note and agree with the plan with exceptions as below. Respiratory acidosis Acute hypoxic respiratory failure COPD exacerbation HFpEF Noncompliance Started BiPAP Follow-up ABG Continue DuoNebs Continue IV Solu-Medrol IV Lasix Monitor I's and O's Avoid tobacco use Ensure medication compliance
[2025-05-10] MEDS: HEPARIN SOD INJ 5000 UNIT/ML VIAL SC (20:50)
[2025-05-10] MEDS: LORazepam 2 MG/ML VIAL 1 MG IVP (20:50)
[2025-05-10] MEDS: levETIRAcetam LIQD 500 MG/5 ML UDC PO (21:55)
[2025-05-10] MEDS: SODIUM CHLORIDE RT SOL 0.9% 3 ML NEBU INH (22:09)
[2025-05-10] MEDS: LEVALBUTEROL RT 1.25 MG/0.5 ML NEBU INH (22:10)
[2025-05-11] VITALS (13 sets, daily range): BP systolic 113–148; BP diastolic 59–86; PULSE 58–87; RESP 12–26; TEMP 35.9–36.9; O2SAT 90–99; BMI 32.3
--- NOTE | 2025-05-11 03:09 | PC.RT ---
pt transfered without complications on bipap 09/03, RR18, fio2 30% spo2 95%, hr 81
--- NOTE | 2025-05-11 04:06 | PC.RT ---
pt on bipap unable to due sputum induction at this time, waitining on sputum inductin to be verified>
[2025-05-11] MEDS: FUROSEMIDE INJ 10 MG/ML 4ML VIAL 40 MG IVP (05:29)
[2025-05-11] MEDS: LEVALBUTEROL RT 1.25 MG/0.5 ML NEBU INH ×3 (06:36→22:54)
[2025-05-11 06:39] LABS: Basophils # (Auto) 0.0 Thou/mm3 (0.0-0.2); Basophils % (Auto) 0 % (0-2.5); Eosinophils # (Auto) 0.0 Thou/mm3 (0.0-0.5); Eosinophils % (Auto) 0 % (0-10); Hematocrit 43.3 % (41.0-53.0); Hemoglobin 13.2 g/dL (13.5-16.0); Immature Granulocytes Auto 0.10 Thou/mm3 (0.00-0.00); Lymphocytes # (Auto) 0.4 Thou/mm3 (1.0-4.8); Lymphocytes % (Auto) 8 % (10-50); Mean Corpuscular HGB Conc 30.5 g/dl (31.0-37.0); Mean Corpuscular Hemoglobin 30.1 pg (25.0-35.0); Mean Corpuscular Volume 99 fL (80-100); Monocytes # (Auto) 0.1 Thou/mm3 (0.0-0.8); Monocytes % (Auto) 2 % (0-12); Neutrophils # (Auto) 5.0 Thou/mm3 (1.8-7.7); Neutrophils % (Auto) 88 % (37-80); Nucleated Red Blood Cell # 0.00 Thou/mm3 (0.00-0.00); Nucleated Red Blood Cell % 0 /100 WBC (0); Platelet Count 141 Thou/mm3 (140-440); RDW Standard Deviation 51.9 fL (35.1-43.9); Red Blood Count 4.39 Miln/mm3 (4.50-5.90); White Blood Count 5.6 Thou/mm3 (3.8-10.6)
[2025-05-11 07:08] LABS: Alanine Aminotransferase 11 U/L (10-49); Albumin, Serum 4.2 gm/dL (3.4-4.8); Albumin/Globulin Ratio 1.7 (1.2-2.2); Alkaline Phosphatase 59 U/L (46-116); Anion Gap 9 (7-16); Aspartate Amino Transferase 13 U/L (0-34); BUN/Creatinine Ratio 11 Ratio (12-20); Bilirubin,Total 0.4 mg/dL (0.3-1.2); Blood Urea Nitrogen 9 mg/dL (9-23); Calcium 9.4 mg/dL (8.3-10.6); Calcium (Corrected) 9.4 mg/dL (8.5-10.1); Carbon Dioxide > 40.0 mMol/L (20.0-31.0); Chloride 93 mMol/L (98-107); Creatinine (Component) 0.8 mg/dL (0.6-1.3); Estimated Creatinine Clearance 116.9 mL/min (>60); Globulin 2.5 gm/dL (2.3-3.5); Glucose 146 mg/dL (74-106); Osmolality,Calculated 284 (275-295); Potassium 5.6 mMol/L (3.4-5.1); Sodium 142 mMol/L (136-145); Total Protein 6.7 gm/dL (5.7-8.2); eGFR > 60 See Note
[2025-05-11] MEDS: levETIRAcetam LIQD 500 MG/5 ML UDC PO ×2 (09:08→20:27)
[2025-05-11] MEDS: HEPARIN SOD INJ 5000 UNIT/ML VIAL SC (09:08)
--- NOTE | 2025-05-11 09:20 | PC.NURSE ---
Pt current IV infiltrated. Pt refusing new IV. Will not take PO medication. Wants to be left alone. Dr. Stokes aware.
--- NOTE | 2025-05-11 09:36 | ESPR_ITS ---
<Statement entered by Liza Hidalgo MD - 05/22/25 17:55> I reviewed above note and agree with findings and plans. I have also personally examined the patient with medicine team and went over assessment and plan with medical team including employee communications intern and resident physician. Documentation for date of: 05/11/25 Patient has a extensive history of COPD exacerbation with 12 admissions within this year. Patient was started on ceftriaxone and Azithromycin (05/11/2025) with methylprednisolone on 40 mg IV BID. Continue bipap as needed and at night. Continue Fluticasone/Salmeterol and Levalbuterol. Continue diuresis for acute on chronic chf exacerbation. large pleural effusion noted, plan for CT guided thoracentesis for tomorrow. NPO aftermidnight and PT/PTT. Hyperkalemia likely secondary from metabolic compensation, given insulin and kayelelate. Subjective Subjective Interval history: Patient seen and examined at bedside this AM. Denies chest pain or shortness of breath. Feels breathing improved from admission. Saturating well on BiPAP. Patient has been refusing some medications including antibiotic treatment. Labs and vitals were reviewed. WBC within normal limits, hemoglobin low at 13.2 however improving. Potassium elevated at 5.6, will give insulin and Kayexalate. Creatinine 0.8. On admission BNP was 104, liver enzymes within normal limits. Patient reports he has not been taking Keppra prescribed last admission. Lateral chest x-ray confirms left lower pneumonia. Pending RSV and sputum cultures. On azithromycin and ceftriaxone. Continue Lasix 40 twice daily. Will continue Keppra, will monitor for seizure signs. Informed patient that he has pneumonia and that leaving AMA may result in worsening of his condition and may even result in . Patient understood and agreed to stay at this time. Review of systems otherwise negative except what is mentioned above. Exam Vital Signs Temp Pulse Resp BP Pulse Ox O2 Del Method O2 Flow Rate 97.0 F 63 21 H 142/74 H 90 L BiPAP 5 05/11/25 08:00 05/11/25 08:00 05/11/25 08:00 05/11/25 08:00 05/11/25 08:00 05/11/25 08:00 05/11/25 04:00 FiO2 30 05/11/25 08:00 Narrative Exam Physical Exam General: Awake and in no acute distress. Non-toxic appearing. Not very cooperative. Able to speak in full sentences. HEENT: Normocephalic, atraumatic, mucous membranes moist. Heart: Regular rate and rhythm, normal S1 and S2, no murmurs appreciated. Lungs: Mild expiratory rhonchi in upper and lower lobes bilaterally. Decreased breath sounds in LLQ. Abdomen: Soft, distended, nontender, positive bowel sounds. No guarding or rebound tenderness. Neurologic: Alert and oriented x3, no gross neurological deficit, and patient able to move all 4 extremities. Extremities: 2+ pitting lower extremity edema bilaterally. Skin: No rash or ecchymoses. Objective Labs 05/11/25 06:00 05/11/25 11:24 Labs: Laboratory Results - last 24 hr 05/10/25 05/10/25 05/10/25 16:14 16:41 18:56 WBC 7.9 RBC 4.23 L Hgb 12.7 L Hct 40.9 L MCV 97 MCH 30.0 MCHC 31.1 RDW Std Deviation 50.3 H Plt Count 138 L D Neut % (Auto) 75 Lymph % (Auto) 10 [place] % (Auto) 10 Eos % (Auto) 1 Baso % (Auto) 0 Neut # (Auto) 5.9 Lymph # (Auto) 0.8 L [place] # (Auto) 0.8 Eos # (Auto) 0.1 Baso # (Auto) 0.0 Immature Gran # (Auto) 0.36 H Absolute Nucleated RBC 0.00 Immature Gran % 5 H Nucleated RBC % 0 D-Dimer Puncture Site Left Radial Right Radial ABG pH 7.31 L 7.33 L ABG pCO2 93 H* 75 H* D ABG pO2 21 L* 104 D ABG HCO3 47 H 44 H ABG O2 Saturation 39 L 97 ABG Base Excess 16 H 14 H Oxygen Liter Flow 4 5 Sodium 141 Potassium 4.2 Chloride 96 L Carbon Dioxide > 40.0 H Anion Gap 5 L BUN 7 L Creatinine 0.6 Estim Creat Clear Calc 150.1 eGFR > 60 BUN/Creatinine Ratio 12 Glucose 116 H Calculated Osmolality 280 Lactic Acid 1.8 Calcium 9.2 Corrected Calcium 9.2 Magnesium 1.5 L Total Bilirubin 0.6 AST 15 ALT 11 Alkaline Phosphatase 57 Troponin I < 0.020 B-Natriuretic Peptide Total Protein 6.5 Albumin 4.1 Globulin 2.4 Albumin/Globulin Ratio 1.7 Procalcitonin 0.17 05/10/25 05/11/25 19:09 06:00 WBC 5.6 RBC 4.39 L Hgb 13.2 L Hct 43.3 MCV 99 MCH 30.1 MCHC 30.5 L RDW Std Deviation 51.9 H Plt Count 141 Neut % (Auto) 88 H Lymph % (Auto) 8 L [place] % (Auto) 2 Eos % (Auto) 0 Baso % (Auto) 0 Neut # (Auto) 5.0 Lymph # (Auto) 0.4 L [place] # (Auto) 0.1 Eos # (Auto) 0.0 Baso # (Auto) 0.0 Immature Gran # (Auto) 0.10 H Absolute Nucleated RBC 0.00 Immature Gran % 2 H Nucleated RBC % 0 D-Dimer 831 H Puncture Site ABG pH ABG pCO2 ABG pO2 ABG HCO3 ABG O2 Saturation ABG Base Excess Oxygen Liter Flow Sodium 142 Potassium 5.6 H D Chloride 93 L Carbon Dioxide > 40.0 H Anion Gap 9 BUN 9 Creatinine 0.8 Estim Creat Clear Calc 116.9 eGFR > 60 BUN/Creatinine Ratio 11 L Glucose 146 H Calculated Osmolality 284 Lactic Acid Calcium 9.4 Corrected Calcium 9.4 Magnesium Total Bilirubin 0.4 AST 13 ALT 11 Alkaline Phosphatase 59 Troponin I B-Natriuretic Peptide 104 H Total Protein 6.7 Albumin 4.2 Globulin 2.5 Albumin/Globulin Ratio 1.7 Procalcitonin ABG Interpretation ABG results: 05/10/25 05/10/25 16:14 18:56 ABG pH 7.31 L 7.33 L ABG pCO2 93 H* 75 H* D ABG pO2 21 L* 104 D ABG HCO3 47 H 44 H ABG O2 Saturation 39 L 97 ABG Base Excess 16 H 14 H Quality Measures Quality Measures none Advance care planning discussed with:: patient Assessment & Plan Assessment Current Active Medications: Generic Name Dose Route Start Last Admin Trade Name Freq PRN Reason Stop Dose Admin Acetaminophen 650 mg 05/10/25 20:22 Acetaminophen 325 Mg Tablet PO 06/09/25 20:21 Q6H PRN PAIN SCALE 1-3 (mild Dextrose 25 ml 05/11/25 08:21 Dextrose 50%-Water Inj 50 Ml Syringe IV 06/10/25 08:20 Q15MIN PRN BG 50-70 responsive npo pt Dextrose 50 ml 05/11/25 08:21 Dextrose 50%-Water Inj 50 Ml Syringe IV 06/10/25 08:20 Q15MIN PRN BG <50 OR BG <70 & pt unresponsive Furosemide 40 mg 05/11/25 06:00 05/11/25 05:29 Furosemide Inj 10 Mg/Ml 4ml Vial IVP 06/10/25 05:59 40 mg BIDD FERDIS Administration Glucagon 1 mg 05/11/25 08:21 Glucagon Inj 1 Mg Vial IM Q15MIN PRN BG <70, and no IV access Heparin Sodium (Porcine) 5,000 unit 05/10/25 21:00 05/11/25 09:08 Heparin Sod Inj 5000 Unit/Ml Vial SC 05/24/25 20:59 5,000 unit Q12HR FREDIS Administration Ceftriaxone Sodium/Dextrose 1 gm in 50 mls @ 100 mls/hr 05/11/25 09:00 05/11/25 09:29 Rocephin/D5w 1gm Iv Premix IV 05/18/25 08:59 Not Given QDAY FREDIS Azithromycin 500 mg/ Sodium 250 mls @ 250 mls/hr 05/11/25 21:00 Chloride IV 05/18/25 20:59 QPM FREDIS Levalbuterol HCl 1.25 mg 05/10/25 23:00 05/11/25 06:36 Levalbuterol Rt 1.25 Mg/0.5 Ml Nebu INH 06/09/25 22:59 1.25 mg Q8HRRT FREDIS Administration Levetiracetam 500 mg 05/10/25 21:00 05/11/25 09:08 Levetiracetam Liqd 500 Mg/5 Ml Udc PO 06/09/25 20:59 500 mg BID FREDIS Administration Methylprednisolone Sodium Succinate 40 mg 05/11/25 09:00 05/11/25 09:30 Methylprednisolone Sod Succ 40 Mg Vial IVP 05/18/25 08:59 Not Given BID FREDIS Ondansetron HCl 4 mg 05/10/25 20:22 Ondansetron Inj 2 Mg/Ml Inj 2 Ml IVP 06/09/25 20:21 Q6H PRN NAUSEA OR VOMITING Protocol Fluticasone/Salmeterol 1 puff 05/11/25 07:00 Fluticasone/Salmeterol 250/50 14 Dose Inh INH 06/10/25 06:59 BIDRT [facility] Sennosides 1 tab 05/11/25 09:00 05/11/25 09:30 Senna Tablet PO 06/10/25 08:59 Not Given QDAY [facility] Protocol Sodium Chloride 3 ml 05/10/25 20:25 Sodium Chloride Rt Marita 0.9% 3 Ml Nebu INH 06/09/25 20:24 PRN PRN SOLN Plan Patient is a 65-year-old male with past medical history of COPD on 4 L home oxygen, HFpEF (EF 55 to 60%), CAD s/p CABG, hypertension, atrial fibrillation, hyperlipidemia, chronic tobacco use, alcohol use disorder presenting to the ED on 05/11 with shortness of breath. Will be admitted for hypercapnic respiratory failure secondary to COPD exacerbation and superimposed pneumonia with pleural effusion. Currently being treated with IV antibiotics, breathing treatments and IV steroids. #Acute on Chronic Hypercapnic Respiratory Failure 2/2 to #COPD Exacerbation #Community Acquired Pneumonia #Respiratory Acidosis with chronic metabolic compensation Acute on chronic CO2 retention likely due to COPD exacerbation with poor BiPAP compliance at home. ABG shows pH 7.33, pCo2 75, pO2 104, Bicarb of 44, likely secondary to pleural effusion and uncontrolled COPD (patient is noncompliant with BiPAP at home). Possible worsening metabolic alkalosis while on Lasix. CXR shows significant L base pneumonia, mild-moderate left pleural effusion. Confirmed on lateral CXR. Plan: - Continue IV Azithromycin (05/11/2025-05/14/2025)) + Ceftriaxone (05/09/2025--) - Continue systemic steroids 40 mg IV BID and Advair inhaler - Pending RSV - Pending sputum cultures - Continue BIPAP, wean as tolerated - Nebulizers as needed if tolerated and scheduled - Monitor for worsening effusion - If worsening mental status or unable to protect airway, escalate to ICU for possible intubation. #Acute on Chronic Congestive Heart Failure #CHF HFpEF 55-60% (03/27/2025) #Diastolic Dysfunction, grade III #Large Left Pleural Effusion Presented with worsening left lower extremity edema and dyspnea upon exertion with a BNP of 104. Chest x-ray noted on 05/11/2025 noted to have a large pleural effusion, given increased work of breathing, patient would likely benefit from CT guided Thoracentesis. Patient agreeable to thoracentesis. Current Weight 108.046 Echo 03/27/2025 revealed Normal LV size and function with an estimated EF of 55 to 60%. Grade II Diastolic dysfunction. Plan: - Continue Lasix 40 BID -Continue diuresis -Thoracentesis, tomorrow -Pleural studies, LDH serum -K>4 and Mg >2 - Monitor daily weights, I/Os - Fluid restriction 2000mL #Electrolyte Imbalance #Hyperkalemia Hyperkalemia on admission with 5.6 likely secondary to metabolic alkalosis compensation. Repeat renal panel. Plan -Continue to monitor potassium labs. - Start insulin and Kayexelate - Follow up repeat renal panel #History of seizures On Keppra 500mg po bid per previous admission, prescribed due to suspicion for seizure but never confirmed on EEG (planned outpatient neurology follow up). Patient has not been taking it. 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 Hgb 12.3 on admission, uptrending. Baseline 11-13. Plan: - Monitor Hgb - Consider outpatient work up - Transfuse if <7 #Tobacco Use Disorder - Nicotine patch ordered - Reinforce cessation counseling when patient more alert. #history of paroxysmal atrial fibrillation no beta blockers on board no anticoagulation Health Maintenance: Lines: PIV Diet: Cardiac Bowel: Senna GI prophylaxis: Not needed, Zofran for nausea DVT prophylaxis: Heparin subcu Dispo: Treatment for COPD exacerbation, pneumonia and possible pleural effusion with diuretics, consider thoracentesis if not improving Code: Full Patient plan of care was discussed with the resident, Dr. Dela Cruz, and attending physician, Dr. Hidalgo. Dorothea Todd, PGY-1 - The patient's plan was discussed with attending Dr. Rocky Dela Cruz MD PGY2 Internal Medicine
--- NOTE | 2025-05-11 09:37 | XR_ITS ---
Examination: AP lateral chest 2 views TECHNIQUE: Upright AP lateral chest 2 views Date and time: May 11, 2025 1036 hours Comparison May 10, 2025 INDICATIONS: Difficulty breathing this week. FINDINGS: Significant pneumonia left base Large left pleural effusion Normal heart size IMPRESSION: Significant pneumonia left base
--- NOTE | 2025-05-11 11:03 | PC.SS ---
Initial: MARINE ELECTRICIAN made contact with the patient in the attempt to complete initial. Patient was not alert and orientated, MARINE ELECTRICIAN made contact with son Daniel Lowe via phone call ph: [phone]. Role and reason for the contact was explained to the patient?s son. The patient?s demographic information was verified with the patient?s son. Pts. son reported that the patient lives at home alone and requires oxygen and utilizes wheelchair and walker. Pts. son identifies himself as the patient?s primary care person. Patient?s son stated that once ready for d/c he would be able to arrange transportation. Patient?s son stated pt. does not have a PCP and does not know which pharmacy he uses. PCP: no primary physician
[2025-05-11 12:04] LABS: Albumin, Serum 3.7 gm/dL (3.4-4.8); Anion Gap 7 (7-16); BUN/Creatinine Ratio 20 Ratio (12-20); Blood Urea Nitrogen 12 mg/dL (9-23); Calcium 8.9 mg/dL (8.3-10.6); Calcium (Corrected) 9.1 mg/dL (8.5-10.1); Carbon Dioxide > 40.0 mMol/L (20.0-31.0); Chloride 93 mMol/L (98-107); Creatinine (Component) 0.6 mg/dL (0.6-1.3); Estimated Creatinine Clearance 155.9 mL/min (>60); Glucose 125 mg/dL (74-106); Osmolality,Calculated 280 (275-295); Phosphorous 2.3 mg/dL (2.4-5.1); Potassium 4.0 mMol/L (3.4-5.1); Sodium 140 mMol/L (136-145); eGFR > 60 See Note
[2025-05-11] MEDS: FLUTICASONE/SALMETEROL 250/50 14 DOSE INH 1 PUFF INH (19:23)
[2025-05-12] VITALS (9 sets, daily range): BP systolic 112–139; BP diastolic 47–70; PULSE 59–84; RESP 17–24; TEMP 36.1–36.6; O2SAT 93–100; BMI 32.6
[2025-05-12] MEDS: SODIUM CHLORIDE RT SOL 0.9% 3 ML NEBU INH ×3 (07:06→22:19)
[2025-05-12] MEDS: FLUTICASONE/SALMETEROL 250/50 14 DOSE INH 1 PUFF INH ×2 (07:06→22:20)
[2025-05-12] MEDS: LEVALBUTEROL RT 1.25 MG/0.5 ML NEBU INH ×3 (07:06→22:20)
[2025-05-12 08:18] LABS: INR 1.0 (0.9-1.3); Partial Thromboplastin Time 28.5 Seconds (22.0-36.0); Prothrombin Time 10.9 Seconds (9.0-12.2)
[2025-05-12] MEDS: levETIRAcetam LIQD 500 MG/5 ML UDC PO ×2 (09:06→21:00)
--- NOTE | 2025-05-12 10:02 | PC.SS ---
Follow up note: Needs CT thoracentesis. Pt will return home upon dc.
[2025-05-12 10:40] LABS: Basophils # (Auto) 0.0 Thou/mm3 (0.0-0.2); Basophils % (Auto) 0 % (0-2.5); Eosinophils # (Auto) 0.0 Thou/mm3 (0.0-0.5); Eosinophils % (Auto) 1 % (0-10); Hematocrit 34.8 % (41.0-53.0); Hemoglobin 11.1 g/dL (13.5-16.0); Immature Granulocytes Auto 0.08 Thou/mm3 (0.00-0.00); Lymphocytes # (Auto) 1.0 Thou/mm3 (1.0-4.8); Lymphocytes % (Auto) 25 % (10-50); Mean Corpuscular HGB Conc 31.9 g/dl (31.0-37.0); Mean Corpuscular Hemoglobin 30.2 pg (25.0-35.0); Mean Corpuscular Volume 95 fL (80-100); Monocytes # (Auto) 0.4 Thou/mm3 (0.0-0.8); Monocytes % (Auto) 9 % (0-12); Neutrophils # (Auto) 2.6 Thou/mm3 (1.8-7.7); Neutrophils % (Auto) 63 % (37-80); Nucleated Red Blood Cell # 0.00 Thou/mm3 (0.00-0.00); Nucleated Red Blood Cell % 0 /100 WBC (0); Platelet Count 143 Thou/mm3 (140-440); RDW Standard Deviation 50.6 fL (35.1-43.9); Red Blood Count 3.67 Miln/mm3 (4.50-5.90); White Blood Count 4.2 Thou/mm3 (3.8-10.6)
[2025-05-12 10:59] LABS: Alanine Aminotransferase 9 U/L (10-49); Albumin, Serum 3.4 gm/dL (3.4-4.8); Albumin/Globulin Ratio 1.9 (1.2-2.2); Alkaline Phosphatase 48 U/L (46-116); Anion Gap 13 (7-16); Aspartate Amino Transferase 10 U/L (0-34); BUN/Creatinine Ratio 23 Ratio (12-20); Bilirubin,Total 0.2 mg/dL (0.3-1.2); Blood Urea Nitrogen 16 mg/dL (9-23); Calcium 8.3 mg/dL (8.3-10.6); Calcium (Corrected) 8.8 mg/dL (8.5-10.1); Carbon Dioxide > 40.0 mMol/L (20.0-31.0); Chloride 93 mMol/L (98-107); Creatinine (Component) 0.7 mg/dL (0.6-1.3); Estimated Creatinine Clearance 134.4 mL/min (>60); Globulin 1.8 gm/dL (2.3-3.5); Glucose 109 mg/dL (74-106); LDH (Lactate Dehydrogenase) 192 U/L (120-246); Magnesium 1.6 mg/dL (1.6-2.6); Osmolality,Calculated 292 (275-295); Phosphorous 3.2 mg/dL (2.4-5.1); Potassium 4.1 mMol/L (3.4-5.1); Sodium 146 mMol/L (136-145); Total Protein 5.2 gm/dL (5.7-8.2); eGFR > 60 See Note
--- NOTE | 2025-05-12 13:19 | ESPR_ITS ---
<Statement entered by Liza Hidalgo MD - 05/23/25 07:44> I reviewed above note and agree with findings and plans. I have also personally examined the patient with medicine team and went over assessment and plan with medical team including technical support intern and resident physician. Documentation for date of: 05/12/25 No overnight events. Patient continues to ornery and refusing some medical treatment, including thoracentesis. Patient refusing antibiotics. Patient refusing thoracentesis. Patient continues to be on 5 Liters nasal cannula. Subjective Subjective Interval history: No acute events overnight. Patient seen and examined at bedside this AM. Denies chest pain and shortness of breath. Patient is saturating well on 5L O2 nasal cannula, complies with breathing treatment however; refuses labs this morning, explained that it is important for treatment but patient continues to refuse. Also refusing IV placement, therefore unable to treat his pneumonia with IV antibiotics. Unable to administer IV Lasix. Patient is now refusing thoracentesis. Review of systems otherwise negative except what is mentioned above. Exam Vital Signs Temp Pulse Resp BP Pulse Ox O2 Del Method O2 Flow Rate 97.8 F 67 17 125/62 99 Nasal Cannula 5 05/12/25 08:00 05/12/25 08:00 05/12/25 08:00 05/12/25 08:00 05/12/25 08:00 05/12/25 08:00 05/12/25 08:00 FiO2 30 05/12/25 04:00 Narrative Exam Physical Exam General: Awake and in no acute distress. Non-toxic appearing. Not very cooperative. Able to speak in full sentences. HEENT: Normocephalic, atraumatic, mucous membranes moist. Heart: Regular rate and rhythm, normal S1 and S2, no murmurs appreciated. Lungs: Mild expiratory rhonchi in upper and lower lobes bilaterally. Decreased breath sounds in LLQ. Abdomen: Soft, distended, nontender, positive bowel sounds. No guarding or rebound tenderness. Neurologic: Alert and oriented x3, no gross neurological deficit, and patient able to move all 4 extremities. Extremities: 2+ pitting lower extremity edema bilaterally. Skin: No rash or ecchymoses. Objective Labs 05/12/25 05:24 05/12/25 07:17 Labs: Laboratory Results - last 24 hr 05/12/25 05/12/25 05:24 07:17 WBC 4.2 RBC 3.67 L Hgb 11.1 L D Hct 34.8 L MCV 95 MCH 30.2 MCHC 31.9 RDW Std Deviation 50.6 H Plt Count 143 Neut % (Auto) 63 Lymph % (Auto) 25 [place] % (Auto) 9 Eos % (Auto) 1 Baso % (Auto) 0 Neut # (Auto) 2.6 Lymph # (Auto) 1.0 [place] # (Auto) 0.4 Eos # (Auto) 0.0 Baso # (Auto) 0.0 Immature Gran # (Auto) 0.08 H Absolute Nucleated RBC 0.00 Immature Gran % 2 H Nucleated RBC % 0 PT 10.9 INR 1.0 APTT 28.5 Sodium 146 H Potassium 4.1 Chloride 93 L Carbon Dioxide > 40.0 H Anion Gap 13 BUN 16 Creatinine 0.7 Estim Creat Clear Calc 134.4 eGFR > 60 BUN/Creatinine Ratio 23 H Glucose 109 H Calculated Osmolality 292 Calcium 8.3 Corrected Calcium 8.8 Phosphorus 3.2 Magnesium 1.6 Total Bilirubin 0.2 L AST 10 ALT 9 L Alkaline Phosphatase 48 Lactate Dehydrogenase 192 Total Protein 5.2 L Albumin 3.4 Globulin 1.8 L Albumin/Globulin Ratio 1.9 ABG Interpretation ABG results: 05/10/25 05/10/25 16:14 18:56 ABG pH 7.31 L 7.33 L ABG pCO2 93 H* 75 H* D ABG pO2 21 L* 104 D ABG HCO3 47 H 44 H ABG O2 Saturation 39 L 97 ABG Base Excess 16 H 14 H Quality Measures Quality Measures none Advance care planning discussed with:: patient Assessment & Plan Assessment Current Active Medications: Generic Name Dose Route Start Last Admin Trade Name Freq PRN Reason Stop Dose Admin Acetaminophen 650 mg 05/10/25 20:22 Acetaminophen 325 Mg Tablet PO 06/09/25 20:21 Q6H PRN PAIN SCALE 1-3 (mild Dextrose 25 ml 05/11/25 08:21 Dextrose 50%-Water Inj 50 Ml Syringe IV 06/10/25 08:20 Q15MIN PRN BG 50-70 responsive npo pt Dextrose 50 ml 05/11/25 08:21 Dextrose 50%-Water Inj 50 Ml Syringe IV 06/10/25 08:20 Q15MIN PRN BG <50 OR BG <70 & pt unresponsive Furosemide 40 mg 05/11/25 06:00 05/12/25 05:09 Furosemide Inj 10 Mg/Ml 4ml Vial IVP 06/10/25 05:59 Not Given BIDD FREDIS Glucagon 1 mg 05/11/25 08:21 Glucagon Inj 1 Mg Vial IM Q15MIN PRN BG <70, and no IV access Heparin Sodium (Porcine) 5,000 unit 05/10/25 21:00 05/12/25 09:10 Heparin Sod Inj 5000 Unit/Ml Vial SC 05/24/25 20:59 Not Given Q12HR FREDIS Ceftriaxone Sodium/Dextrose 1 gm in 50 mls @ 100 mls/hr 05/11/25 09:00 05/12/25 09:10 Rocephin/D5w 1gm Iv Premix IV 05/18/25 08:59 Not Given QDAY FREDIS Azithromycin 500 mg/ Sodium 250 mls @ 250 mls/hr 05/11/25 21:00 05/11/25 20:31 Chloride IV 05/18/25 20:59 Not Given QPM FREDIS Levalbuterol HCl 1.25 mg 05/10/25 23:00 05/12/25 07:06 Levalbuterol Rt 1.25 Mg/0.5 Ml Nebu INH 06/09/25 22:59 1.25 mg Q8HRRT FREDIS Administration Levetiracetam 500 mg 05/10/25 21:00 05/12/25 09:06 Levetiracetam Liqd 500 Mg/5 Ml Udc PO 06/09/25 20:59 500 mg BID FREDIS Administration Methylprednisolone Sodium Succinate 40 mg 05/11/25 09:00 05/12/25 09:09 Methylprednisolone Sod Succ 40 Mg Vial IVP 05/18/25 08:59 Not Given BID FREDIS Ondansetron HCl 4 mg 05/10/25 20:22 Ondansetron Inj 2 Mg/Ml Inj 2 Ml IVP 06/09/25 20:21 Q6H PRN NAUSEA OR VOMITING Protocol Fluticasone/Salmeterol 1 puff 05/11/25 07:00 05/12/25 07:06 Fluticasone/Salmeterol 250/50 14 Dose Inh INH 06/10/25 06:59 1 puff BIDRT FREDIS Administration Sennosides 1 tab 05/11/25 09:00 05/12/25 09:06 Senna Tablet PO 06/10/25 08:59 1 tab QDAY FREDIS Administration Protocol Sodium Chloride 3 ml 05/10/25 20:25 05/12/25 07:06 Sodium Chloride Rt Marita 0.9% 3 Ml Nebu INH 06/09/25 20:24 3 ml PRN PRN Administration SOLN Plan Patient is a 65-year-old male with past medical history of COPD on 4 L home oxygen, HFpEF (EF 55 to 60%), CAD s/p CABG, hypertension, atrial fibrillation, hyperlipidemia, chronic tobacco use, alcohol use disorder presenting to the ED on 05/11 with shortness of breath. Will be admitted for hypercapnic respiratory failure secondary to COPD exacerbation and superimposed pneumonia with pleural effusion. Currently being treated with IV antibiotics, breathing treatments and IV steroids; however patient has been medically non-compliant. #Acute on Chronic Hypercapnic Respiratory Failure 2/2 to #COPD Exacerbation #Community Acquired Pneumonia #Medically non-compliant #Respiratory Acidosis with chronic metabolic compensation Acute on chronic CO2 retention likely due to COPD exacerbation with poor BiPAP compliance at home. ABG shows pH 7.33, pCo2 75, pO2 104, Bicarb of 44, likely secondary to pleural effusion and uncontrolled COPD (patient is noncompliant with BiPAP at home). Possible worsening metabolic alkalosis while on Lasix. CXR shows significant L base pneumonia, mild-moderate left pleural effusion. Confirmed on lateral CXR. Sputum cultures show mixed april, Gram stain shows WBC 2+. 05/12: Patient refuses IV placement and antibiotic treatment despite being informed of risks. Plan: - Continue IV Azithromycin (05/11/2025-05/14/2025)) + Ceftriaxone (05/09/2025--) - Continue systemic steroids 40 mg IV BID and Advair inhaler - Pending RSV - Wean oxygen as tolerated - Nebulizers as needed if tolerated and scheduled - Monitor for worsening effusion - If worsening mental status or unable to protect airway, escalate to ICU for possible intubation. #Acute on Chronic Congestive Heart Failure #CHF HFpEF 55-60% (03/27/2025) #Diastolic Dysfunction, grade III #Large Left Pleural Effusion Presented with worsening left lower extremity edema and dyspnea upon exertion with a BNP of 104. Chest x-ray noted on 05/11/2025 noted to have a large pleural effusion, given increased work of breathing, patient would likely benefit from CT guided Thoracentesis. Patient agreeable to thoracentesis. Current Weight 108.046 Echo 03/27/2025 revealed Normal LV size and function with an estimated EF of 55 to 60%. Grade II Diastolic dysfunction. 05/12: Patient refuses thoracentesis. Was informed of benefits and risks. Plan: - Continue IV Lasix 40 mg BID -Declines thoracentesis despite being informed of risks -Pleural studies, LDH serum -K>4 and Mg >2 - Monitor daily weights, I/Os - Cardiac diet - Fluid restriction 2000mL #Electrolyte Imbalance #Hyperkalemia Hyperkalemia on admission with 5.6 likely secondary to metabolic alkalosis compensation. Repeat renal panel. 05/12: Unable to be assess as patient refused labs Plan -Continue to monitor potassium labs. - Follow up repeat renal panel #History of seizures On Keppra 500mg po bid per previous admission, prescribed due to suspicion for seizure but never confirmed on EEG (planned outpatient neurology follow up). Patient has not been taking it. 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 Hgb 12.3 on admission, uptrending. Baseline 11-13. 05/12: Unable to assess as patient refused labs Plan: - Monitor Hgb - Consider outpatient work up - Transfuse if <7 #Tobacco Use Disorder - Continue nicotine patch - Reinforce cessation counseling when patient more cooperative #History of paroxysmal atrial fibrillation Currently in regular rate and rhythm - Continue to monitor telemetry Health Maintenance: Lines: PIV Diet: Cardiac Bowel: Senna GI prophylaxis: Not needed, Zofran for nausea DVT prophylaxis: Heparin subcu Dispo: Treatment for COPD exacerbation, pneumonia and possible pleural effusion with diuretics, consider thoracentesis if not improving Code: Full Patient plan of care was discussed with the resident, Dr. Dela Cruz, and attending physician, Dr. Hidalgo. Dorothea Todd, PGY-1
[2025-05-13] VITALS (7 sets, daily range): BP systolic 120–142; BP diastolic 55–83; PULSE 60–88; RESP 15–26; TEMP 36.2–36.5; O2SAT 96–100; BMI 32.1
[2025-05-13] MEDS: SODIUM CHLORIDE RT SOL 0.9% 3 ML NEBU INH ×2 (06:21→14:39)
[2025-05-13] MEDS: FLUTICASONE/SALMETEROL 250/50 14 DOSE INH 1 PUFF INH (06:22)
[2025-05-13] MEDS: LEVALBUTEROL RT 1.25 MG/0.5 ML NEBU INH ×2 (06:22→14:39)
[2025-05-13] MEDS: levETIRAcetam LIQD 500 MG/5 ML UDC PO (08:18)
[2025-05-13] MEDS: HEPARIN SOD INJ 5000 UNIT/ML VIAL SC (08:18)
--- NOTE | 2025-05-13 16:04 | ESDS_ITS ---
<Statement entered by Liza Hidalgo MD - 05/23/25 07:45> I reviewed above note and agree with findings and plans. I have also personally examined the patient with medicine team and went over assessment and plan with medical team including regulatory intern and resident physician. Planned Discharge Date 05/13/25 DS: Providers Provider Date of admission: 05/10/25 20:22 Primary care physician: Physician No Primary/Family Admitting Provider: Jose Cintron MD Attending Provider on Admission: Liza Hidalgo MD Consults: 05/10/25 19:15 Referral Respiratory Therapy Stat Comment: BiPAP Attending Provider on DC: Muriel Dela Cruz MD Discharging Provider: Muriel Dela Cruz MD DS: Diagnosis Problem List Completed Was Problem List Reviewed/Reconciled?: Yes Hospital Course Hospital Course Hospital course: Summary: Patient is a 65 year old male with an extensive past medical histoyr of COPD exacerbations (12 admissions this year) on home oxygen 4 Liters, CHF HFpEF EF 55%-60% (03/27/2025), Diastolic Dysfunction Grade II, Large pleural effusion (patient refuses treatment), history of seizure on keppra, paroxysmal atrial fibrillation, currently sinus rate no anticoagulation, No Eliquis), tobacco use disorder, and hyperlipidemia. Patient was on 05/10/2025 with chief complain of shortness of breath and required Bipap trail in the emergency room, admitted for acute chf exacerbation secondary to COPD exacerbation. Patient has refused all treatment since admission, including breathing treatments. ER Course: In the ED, patient presented hypertensive 149/71, tachycardic with a heart rate of 99, tachypneic with respiratory rate of 26, mildly febrile with a temperature of 99.6 ?F and saturating 94 initially on nasal cannula but quickly requiring BiPAP. Pertinent lab findings included WBC 7.9, hemoglobin 12.7 with MCV of 97, ABG showed pH of 7.33, PCO2 of 75, PO2 of 104, bicarb of 44, creatinine 0.6 with EGFR greater than 60, lactic acid 1.8, magnesium 1.5, troponin less than 0.020, BNP of 104 and Pro-D[place] 0.17. Chest x-ray shows mild prominence of the ventricle and lateral chest x-ray was ordered to confirm pneumonia and pleural fluid in the left base. Hospital Course: Patient was started on methylprednisolone 40 mg IV BID, antibiotics with Azithromycin and Ceftriaxone and on 5 liters of oxygen. Pateint refused all antibiotics and all medication. Patient refused to discuss care with physicians. Despite being made aware of large pleaural effusion, and that treatment would improve work of breathing, patient refused thoracentesis. Continue lasix 40 mg once daily as outpatine for CHF and pleural effusion. [facility] home medicaiton of keppra 500 mg BID continued inpatient and continue at home. Noromocytic anemia noted, stable. Tobacco Use Disorder, patient continues to smoke and refuses nicotine patch despite being ordered. History of paroxysmal atrial fibrillaition, rate controlled, sinus currently, no eliquis. Patient discharged as oxygen requirements returned to baseline. Patient would benefit from pulmonary consult as outpatine. #Acute on Chronic Hypercapnic Respiratory Failure 2/ to #COPD Exacerbation #Community Acquired Pneumonia #Medication Non-Adherent #Respiratory Acidosis with chronic metabolic compensation #Acute on Chronic Congestive Heart Failure #CHF HFpEF 55-60% (03/27/2025) #Diastolic Dysfunction, grade III #Large Left Pleural Effusion #Electrolyte Imbalance #Hyperkalemia #History of seizures #Normocytic Anemia, improving #Tobacco Use Disorder #History of paroxysmal atrial fibrillation Home with home oxygen Instructions: -Continue all medication as prescribed -Please follow up with your primary care provider within one week of discharge -If your symptoms worsen,please seek immediate medical attention and return to your nearest emergency room -If you do not have a primary care provider, you may follow up at the [facility] at [address] [place] [address] [address], [place] [address], - The patient's plan was discussed with attending Dr. Rocky Dela Cruz MD PGY2 Internal Medicine Time Spent with Patient Time attestation: Total time spent providing and/or coordinating discharge services:at least 30 minutes of care and coordination. Time spent: Greater than 30 minutes Exam Vital Signs Temp Pulse Resp BP Pulse Ox O2 Del Method O2 Flow Rate 97.1 F 66 21 H 142/68 H 100 Nasal Cannula 4 05/13/25 12:00 05/13/25 14:39 05/13/25 14:39 05/13/25 12:00 05/13/25 14:39 05/13/25 12:00 05/13/25 14:39 FiO2 30 05/13/25 12:00 Narrative Exam General Appearance: Alert & Oriented X3, well-nourished male who is lying in bed in no acute distress, on 4 Liters HEENT: Skull symmetrical and atraumatic. Conjunctivae pale pink and moist. Pupils equal, round, reactive to light and accommodation (PERRL). External ear without lesion or discharge. Straight, nares patient, mucosa pink, no discharge. Cardio: Normal Rate and Rhythm with S1 and S2 heart sounds. No murmurs or extra heart sounds auscultated. Lungs: Symmetric with good expansion. Chest and back non-tender. Breath sounds vesicular without crackles with mild rhonchi present Abdomen: Non-tender, Non-distended, Normal Reactive Bowel Sounds Neuro: Alert, cooperative, oriented to person, place, and time. Speech clear. CN grossly intact. Upper motor strength 5/5 and Lower motor strength 5/5. Sensation intact. Discharge Plan Plan Patient Disposition: HOME (Self Care) Patient condition on transfer: Stable Care Plan Goals: Instructions: -Continue all medication as prescribed -Please follow up with your primary care provider within one week of discharge -If your symptoms worsen,please seek immediate medical attention and return to your nearest emergency room -If you do not have a primary care provider, you may follow up at the [facility] at [facility] [address], [place] [address], Prescriptions/Referrals Prescriptions/Med Rec: Yonatan [facility] Ellip 100-62.5-25 mcg blister with device 1 inh inhalation Q24H Qty: 28 1RF albuterol sulfate 90 mcg/actuation HFA aerosol inhaler 2 puff inhalation Q6H PRN (Reason: shortness of breath or wheezing) Qty: 8.5 1RF furosemide 40 mg Tablet 40 mg PO QDAY 30 Days Qty: 30 0RF Continued aspirin 81 mg Tablet,Delayed Release (Dr/Ec) 81 mg PO HS Qty: 90 0RF atorvastatin 40 mg tablet 40 mg PO HS Qty: 90 0RF levetiracetam [Keppra] 500 mg tablet 500 mg PO BID 28 Days Qty: 56 0RF Discontinued nicotine 21 mg/24 hr Patch 24 Hour 21 mg top QDAY PRN (Reason: Nicotine Cravings) Qty: 7 0RF methylprednisolone [Medrol (Agus)] 4 mg tablets,dose pack 4 mg PO QAM Qty: 21 0RF levofloxacin 750 mg tablet 750 mg PO QDAY 6 Days Qty: 6 0RF Referrals: No Primary/Family,Physician [Primary Care Provider] - Patient/Caregiver Discharge Instructions Print Language: Indonesian Stand Alone Forms: [facility] Award Info., Patient Portal Info Letter Discharge Order Discharge Orders: Discharge (Routine); Ordered 05/13/25 Ordered By: Muriel Dela Cruz Quality Discharge Quality Measures VTE prophylaxis
== END 2025-05-13 15:57 | disposition home or self-care (01) | DRG 193 ==
LOC: SERX 20:50 → SERHOLD 20:53 → S2NX 05-11 03:03
PROVIDERS: Student in an Organized Health Care Education/Training Program; Admitting Provider Student in an Organized Health Care Education/Training Program; Emergency Provider Emergency Medicine; Visit Provider Internal Medicine
DX: J18.9 Pneumonia, unspecified organism (principal); J96.21 Acute and chronic respiratory failure with hypoxia; J96.22 Acute and chronic respiratory failure with hypercapnia; J44.1 Chronic obstructive pulmonary disease with (acute) exacerbation; I50.32 Chronic diastolic (congestive) heart failure; J44.0 Chronic obstructive pulmonary disease with (acute) lower respiratory infection; E87.29 Other acidosis; E87.4 Mixed disorder of acid-base balance; Z99.81 Dependence on supplemental oxygen; I11.0 Hypertensive heart disease with heart failure; I25.10 Atherosclerotic heart disease of native coronary artery without angina pectoris; Z95.1 Presence of aortocoronary bypass graft; E78.5 Hyperlipidemia, unspecified; F17.200 Nicotine dependence, unspecified, uncomplicated; D63.8 Anemia in other chronic diseases classified elsewhere; R56.9 Unspecified convulsions; I48.0 Paroxysmal atrial fibrillation; E87.5 Hyperkalemia; Z53.20 Procedure and treatment not carried out because of patient's decision for unspecified reasons; Z79.899 Other long term (current) drug therapy; Z91.199 Patient's noncompliance with other medical treatment and regimen due to unspecified reason
CPT/HCPCS: 36415; 36600; 71045; 71046; 80053; 80069; 82150; 82803; 82945; 83605; 83615; 83735; 83880; 84100; 84145; 84157; 84484; 85025; 85379; 85610; 85730; 87070; 87075; 87205; 87400; 87634; 87811; 89051; 93005; 94640; 94660; 96365; 96366; 96375; A9270; J0696; J1644; J1815; J1938; J2060; J2919; J3475